=== PATIENT | female | born 1995 | race Caucasian/White ===

== ENCOUNTER 2023-06-10 13:46 | Emergency (ER) | payer MEDICAID, SELFPAY ==
[2023-06-10 13:49] VITALS: BP 105/60; PULSE 81; RESP 16; TEMP 36.7; O2SAT 100
--- NOTE | 2023-06-10 14:15 | DI.RAD_ITS ---
Exam(s) XR FEMUR LT EXAM: XR FEMUR LT CLINICAL HISTORY: blunt trauma lateral thigh. TECHNIQUE: 2D digital imaging was performed. COMPARISON: No exams were available for comparison FINDINGS: Four views. No evidence of femur fracture. No hip fracture. No radiopaque foreign body. No osseous lesions. B one density normal. IMPRESSION: No femur fracture. DATA REPOSITORY: RADIATION DOSE DELIVERED:
[2023-06-10] MEDS: Ketorolac 10 MG TAB PO (14:26)
--- NOTE | 2023-06-10 15:22 | ED.GENADUL_ITS ---
Discharge Plan Disposition Patient Disposition: Home Condition: Stable Discharge Details Clinical Impression: Contusion of left anterior thigh Primary Care Provider: Unknown,Unknown ED Provider: Fareed Parada Home Meds and New Rx's Prescriptions: New ketorolac 10 mg tablet 10 mg PO TID 5 Days Qty: 15 0RF Continued metformin 500 mg Tablet 500 mg PO DAILY spironolactone 50 mg Tablet 50 mg PO DAILY Discharge Instructions Instructions: Contusion in Adults (ED) Additional Instructions: There are no concerning findings noted on radiological imaging. If you develop any new or significant worsening of symptoms feel free to return the emergency department for reassessment otherwise follow-up with primary care provider or urgent care for reassessment. Referrals: Primary Care Provider [Outside] (As needed for reassessment) Discharge Data Discharge Date/Time-TO BE ENTERED AT DEPARTURE: 06/10/23 16:00 Medical Decision Making Patient presenting to the emergency department for chief complaint of left leg injury. Patient states approximately 1 hour ago she was kicked by horse in the left thigh. Since then she has had difficulty with weightbearing and and some tingling to her foot. She does state slight abrasion to right thigh but denies any other injury or trauma. Physical exam does show mild abrasion to right thigh but left thigh has significant swelling. Patient does have intact sensation distal to injury. I suspect that patient's tingling is secondary to the edema from the blunt trauma. We will perform radiological imaging to assess for acute fracture versus soft tissue injury. Pending results will give ketorolac Review of radiological imaging shows no acute signs of fracture. We will give patient Woody wrap to help with swelling and possible formation of hematoma. Patient placed in crutches to help with ambulation and was informed to continue to ice the area, use ketorolac as needed for pain control, and otherwise follow- up with primary care provider or return for new or worsening symptoms. After discussion of diagnosis and plan of care patient has no further needs, questions, or concerns and states clear understanding to return to the emergency department for any worsening symptoms. This documentation was generated using [email or web address] system, please disregard any oddities of phrase or misspellings. Imaging Data Radiologic Study: Imaging: X-Ray Radiologist's impression: PROCEDURE INFORMATION: Exam: XR Left Femur Exam date and time: 06/10/2023 2:47 PM Age: 28 years old Clinical indication: Other: Blunt trauma lateral thigh TECHNIQUE: Imaging protocol: Radiologic exam of the left femur. Views: 2 views. COMPARISON: No relevant prior studies available. FINDINGS: Bones/joints: No fracture or dislocation. Joint spaces are unremarkable. Soft tissues: No significant abnormality IMPRESSION: No acute findings. HPI General Mode of arrival: wheelchair . Date/Time Provider Initiated Documentation: 06/10/23 14:17 . Limitations to Documentation: no limitations . Information obtained by: patient, family and RN notes reviewed . History of Present Illness 28 year old F presents to the emergency department with the chief complaint of Left thigh injury, kicked by a horse, described as moderate and severe, Quality is described as sharp and constant, and is localized to the left and lower extremity. Patient started experiencing this hour(s) (1) and it has been constant. Immobilization improves symptom(s), Movement worsens symptoms . Patient notes no other symptoms.. Patient did receive the following treatments prior to arrival, none Related Data Home Medications Medication Instructions Recorded Confirmed ketorolac 10 mg tablet 10 mg PO TID 5 days #15 tabs 06/10/23 metformin 500 mg tablet 500 mg PO DAILY 06/10/23 06/10/23 spironolactone 50 mg tablet 50 mg PO DAILY 06/10/23 06/10/23 Previous Rx's Medication Instructions Recorded ketorolac 10 mg tablet 10 mg PO TID 5 days #15 tabs 06/10/23 Allergies Allergy/AdvReac Type Severity Reaction Status Date / Time procaine [From Novocain] Allergy Other (See Unverified 06/10/23 13:58 Comment) General Stated Complaint: Orthopedic ANNE: 3 Review of Systems Narrative: 6 systems reviewed and unremarkable except what is marked below. Cardiovascular Cardiovascular: Denies chest pain and Denies dyspnea Respiratory Respiratory: Denies dyspnea Gastrointestinal Gastrointestinal: Denies abdominal pain Musculoskeletal Musculoskeletal: Reports as per HPI, Reports limited range of motion, Reports muscle weakness and Reports tingling Integumentary/Breasts Skin/Breast: Reports wounds Neurologic Neurologic: Reports tingling PFSH All Active Problems Contusion of left anterior thigh (Acute) Social History Smoking/Tobacco Use Status: Never Smoking risk assessment performed?: Yes Alcohol Intake: current Alcohol Intake frequency: a few times a month Alcohol type: hard liquor Drug use: Never Substance use type: does not use Housing: house Do you feel safe at home: Yes Do you feel safe in your relationship?: Yes Exam Const General: cooperative, no acute distress and not ill appearing Orientation: alert, awake and oriented x3 HENMT Mouth: moist mucous membranes Resp Effort & Inspection: normal respiratory effort, able to speak in complete sentences and no respiratory distress Cardio Rate: regular rate Rhythm: regular rhythm Skin General skin exam: no rashes or lesions noted Neuro General: patient alert, patient awake, patient oriented x3 and moves all extremities Sensory Exam: no sensory deficits noted Extrem General: normal exam except as noted Right lower extremity: hip/thigh Details: abrasion; no tenderness Left lower extremity: hip/thigh Details: tenderness Location: of the mid upper leg Location: anterolaterally, swelling Location: of the mid upper leg, abnormal ROM Details: pain with active ROM and abrasion; no lacerations, no ecchymosis and no deformity, knee Details: normal to inspection; no tenderness, lower leg Details: normal to inspection; no tenderness and foot Details: normal capillary refill, toes with normal ROM and vascular exam Details: dorsalis pedis pulse present, posterior tibial pulse present and normal capillary refill Course Vital Signs Vital signs: Vital Signs Temperature 36.7 C 06/10/23 13:49 Pulse 81 06/10/23 13:49 Respiratory Rate 16 06/10/23 13:49 Blood Pressure 105/60 06/10/23 13:49 Pulse Oximetry 100 06/10/23 13:49 Temperature 36.7 C 06/10/23 13:49 Temperature Source Skin 06/10/23 13:49 Pulse 81 06/10/23 13:49 Respiratory Rate 16 06/10/23 13:49 Respiratory Effort Normal, Non-Labored 06/10/23 13:58 Blood Pressure 105/60 06/10/23 13:49 Blood Pressure Position Sitting 06/10/23 13:49 Pulse Oximetry 100 06/10/23 13:49 Oxygen Delivery Method Room Air 06/10/23 13:49 Oxygen Flow Rate 0 06/10/23 13:49 Pain Level 8 06/10/23 14:21 Lab/Test Results Lab/Test Results: POC- Test(urine) Negative PAWSS Have you Been Recently Intoxicated or Drunk Within the Last 30 days?: No Have you Ever Experienced Previous Episodes of Alcohol Withdrawal?: No Have you ever Experienced Withdrawal Seizures?: No Have you ever Experienced Delirium Tremens(DT)s?: No Have you ever undergone Alcohol Rehabilitation Treatment (i.e, inpt ot outpatient treatment programs)?: No Have you ever Experienced Blackouts?: No Have you ever Combined Alcohol with other Downers within the last 90 days?: No Have you ever Combined Alcohol with any other Substance of Abuse during the last 90 days?: No Positive Blood Alcohol level on Presentation? [PCS.BAL]: No Evidence of Increased Autonomic Activity (i.e. HR>120, tremor, sweating, agitation, nausea)?: No Result: 0
[2023-06-10 15:58] VITALS: BP 105/60; PULSE 81; RESP 16; TEMP 36.7; O2SAT 100
== END 2023-06-10 16:00 | disposition home or self-care (01) ==
PROVIDERS: Emergency Provider Nurse Practitioner Family
DX: S70.12XA Contusion of left thigh, initial encounter (principal); W55.12XA Struck by horse, initial encounter
CPT/HCPCS: 73552; 81025; 99283; 99284

== ENCOUNTER 2024-02-29 16:49 | Outpatient (REF) | payer MEDICAID, SELFPAY ==
[2024-02-29 20:45] LABS: Abs Immature Grans 0.01 10^3/uL (0.0-0.06); Absolute Basophil Count 0.03 10^3/uL (0.0-0.2); Absolute Eosinophil Count 0.04 10^3/uL (0.0-0.7); Absolute Lymphocyte Count 2.46 10^3/uL (1.2-3.4); Absolute Monocyte Count 0.41 10^3/uL (0.1-0.8); Absolute Neutrophil Count 2.73 10^3/uL (1.2-6.7); Basophils % 0.5; Eosinophils % 0.7; HGB 12.1 g/dL (11.2-15.7); Immature Grans % 0.2; Lymphocytes % 43.3; MCH 28.9 pg (27.0-33.0); MCHC 33.6 % (32.0-36.0); MCV 86 fL (80-95); MPV 10.2 fL (8.0-11.0); Monocytes % 7.2; Neutrophils % 48.1; Platelet Count 258 10^3/uL (130-400); RBC 4.18 10^6/uL (3.93-5.22); RDW 12.4 % (11.7-14.6); RDW-SD 38.9 fL; WBC 5.68 10^3/uL (4.4-10.8)
[2024-02-29 20:54] LABS: ALT 18 U/L (14-59); AST 15 U/L (15-37); Albumin 4.1 g/dL (3.4-5.0); Alkaline Phosphatase 57 U/L (46-116); Anion Gap 8.9 mmol/L (3-11); BUN 15 mg/dL (7-18); Bilirubin, Total 0.5 mg/dL (0.2-1.0); CO2 25.1 mmol/L (21.0-32.0); CREATININE 0.7 mg/dL (0.55-1.02); Calcium 8.9 mg/dL (8.5-10.1); Chloride 106 mmol/L (98-107); Estimated GFR 121.49 (mL/min/1.73m2); Glucose 84 mg/dL (74-106); Potassium 4.4 mmol/L (3.5-5.1); Sodium 140 mmol/L (136-145)
[2024-02-29 20:56] LABS: C-Reactive Protein < 0.50 mg/dL (<or=0.5)
[2024-03-01 17:30] LABS: Rheumatoid Factor <8.6 IU/mL (<12.0)
[2024-03-03 14:34] LABS: ANA Interpretation Positive (Negative)
== END 2024-02-29 16:50 | disposition home or self-care (01) ==
LOC: NCHCN 16:49
PROVIDERS: Visit Provider Family Medicine
DX: M25.59 Pain in other specified joint (principal); R11.0 Nausea
CPT/HCPCS: 80053; 85025; 86038; 86140; 86431

== ENCOUNTER → 2024-03-04 02:55 | Outpatient (CLI) | payer MEDICAID, SELFPAY ==
--- NOTE | 2024-03-04 11:33 | DI.RAD_ITS ---
Exam(s) XR LUMBAR SPINE COMPLETE EXAM: XR LUMBAR SPINE COMPLETE CLINICAL HISTORY: LOW BACK PAIN,M54.50. TECHNIQUE: 2D digital imaging was performed. COMPARISON: No exams were available for comparison FINDINGS: Five views. No evidence of fracture, listhesis, nor pars defects. 12th ribs noted to be asymmetric, left shorter than right. Transverse processes appear unremarkable. There is no scoliosis. No disc space narrow ing. No osseous lesions. IMPRESSION: No significant osseous findings. DATA REPOSITORY: RADIATION DOSE DELIVERED:
--- NOTE | 2024-03-04 11:33 | DI.RAD_ITS ---
Exam(s) XR SACROILIAC JOINTS EXAM: XR SACROILIAC JOINTS CLINICAL HISTORY: LOW BACK PAIN,M54.50. TECHNIQUE: 2D digital imaging was performed. COMPARISON: No exams were available for comparison FINDINGS: 3 views Sacroiliac joints appear unremarkable with no radiographic evidence of sacroiliitis and no ankylosis. Bone density normal lesions. No sacral fractures. IMPRESSION: Normal appearing sacroiliac joints. DATA REPOSITORY: RADIATION DOSE DELIVERED:
== END ==
PROVIDERS: PCP Family Medicine; Visit Provider Family Medicine
DX: M54.59 Other low back pain (principal)
CPT/HCPCS: 72110; 72202

== ENCOUNTER 2024-08-01 02:33 | Outpatient (CLI) | payer MEDICAID, SELFPAY ==
--- NOTE | 2024-08-01 | DI.US_ITS ---
Exam(s) US PELVIS TRANSVAGINAL EXAM: US PELVIS TRANSVAGINAL CLINICAL HISTORY: Dyspareunia, N94.10. TECHNIQUE: Transabdominal and transvaginal pelvic ultrasound was performed using standard protocol. COMPARISON: No exams were available for comparison FINDINGS: UTERUS: Position: Anteverted. Size: 7.7 long by 3.3 AP by 4.5 transverse cm Endometrium: 0.4 cm. Normal for patient's menstrual status. Myometrium: Unremarkable. Cervix: Nabothian cysts are seen. OVARIES: Right: 4.2 x 2.4 x 3.1 cm Cyst or mass: No suspicious cystic or solid masses. Left: 5.8 x 4.5 x 5.0 cm Cyst or mass: No suspicious cystic or solid masses. There is a 3.8 x 3.6 x 5.0 cm simple cyst on the left ovary. This is likely physiologic. DOPPLER: Color: Symmetric and uniform flow to both ovaries. CUL-DE-SAC: Free fluid: None. Other: None. IMPRESSION: 1. Normal-appearing uterus with endometrial stripe within normal limits. 2. 3.8 x 3.6 x 5.0 cm simple left ovarian cyst. This is likely physiologic. A follow-up examination in 6 8 weeks is recommended for re-evaluation of the left ovarian cyst. 3. Unremarkable right ovary. DATA REPOSITORY:
== END 2024-08-01 02:53 ==
LOC: DI 02:33
PROVIDERS: PCP Family Medicine; Visit Provider Family Medicine
DX: N94.10 Unspecified dyspareunia (principal)
CPT/HCPCS: 76830; 76856

== ENCOUNTER 2024-08-01 12:45 | Outpatient (REF) | payer MEDICAID, SELFPAY ==
--- NOTE | 2024-08-01 13:45 | PAPFT_PTH ---
PATIENT: Ulises Skelton LOC: [facility] U#:[id number] AGE/SX: 29/F ROOM: RE08/01/[address]: Kalyani Douglas : 1995 BED: DIS: 08/01/2024 SPEC #: [id number] RECD: 08/02/24 13:28 STATUS: DAE RETavon #: [id number] LUIS EDUARDO: 08/01/24 13:[address]: Kalyani Douglas DEPT: [facility] Cytology RECD BY: La Wyatt Tissues: 1 - CX/ENDOCX FOR PAP SMEARS Procedures: PAP THIN PREP/UVM Screening Comments: [id number]
== END 2024-08-01 12:46 | disposition home or self-care (01) ==
LOC: NCHCN 12:45
PROVIDERS: PCP Family Medicine; Visit Provider Family Medicine
DX: Z12.4 Encounter for screening for malignant neoplasm of cervix (principal)
CPT/HCPCS: 88142

== ENCOUNTER 2024-08-21 01:47 | Outpatient (CLI) | payer MEDICAID, SELFPAY ==
[2024-08-21] MEDS: Gadoterate meglumine 20 ML VIAL 11 ML IVP (09:04)
--- NOTE | 2024-08-21 09:45 | DI.MRI_ITS ---
Exam(s) MR PELVIS WO/W EXAM: MR PELVIS WO/W CLINICAL HISTORY: Pelvic and perineal pain, R10.2; dyspareunia; tenderness R adnexa; TECHNIQUE: Multiplanar multisequence MRI of the Abdomen was performed. CONTRAST MATERIAL: IV Contrast: 11 mL of Dotarem contrast administered. COMPARISON: US US PELVIS TRANSVAGINAL from 08/01/2024 FINDINGS: Ovaries: The right ovary measures 2.5 x 3.2 x 2.9 cm. There are small follicular cysts present. The largest measures 9.5 mm. No suspicious cystic or solid ovarian lesions are present. The left ovary measures 4.5 x 5.6 x 3.9 cm. There is a simple 3.9 x 5.0 x 3.4 cm cyst. This corresponds to the cy st seen on the pelvic ultrasound and is show no significant change in size. The cyst has a thin wall . No solid component is seen. Following contrast administration no abnormal enhancement is seen. T he cyst is homogeneously hyperintense on the T2 weighted images and homogeneously hypointense on the T1 weighted images. No suspicious left ovarian lesions are seen. Uterus: The uterus is grossly unremarkable. There is no evidence of a myometrial mass. The endometr ial stripe appears grossly unremarkable. It measures 8 mm in thickness which is within normal limits . The uterus measures 8.6 cm long by 5.0 cm transverse by 4.8 cm AP. Cervical nabothian cysts are p resent. Bowel: The stool seen in the colon particularly in the cecum. Lymph nodes: No evidence of pelvic adenopathy. Peritoneal cavity: No significant ascites is present. Urinary bladder: Unremarkable. Soft tissue : Unremarkable. Vasculature: Unremarkable. Bone: Unremarkable. Enhancement: Unremarkable. IMPRESSION: 1. 3.9 x 5.0 x 3.4 cm simple left ovarian cyst. A follow-up pelvic ultrasound in 6 8 weeks is recomm ended. 2. Unremarkable right ovary and uterus. 3. No evidence of a pelvic mass or enhancing lesion. DATA REPOSITORY:
== END 2024-08-21 02:07 ==
LOC: DI 01:47
PROVIDERS: PCP Family Medicine; Visit Provider Family Medicine
DX: N83.292 Other ovarian cyst, left side (principal)
CPT/HCPCS: 72197

== ENCOUNTER 2024-12-08 15:09 | Emergency (ER) | payer MEDICAID, SELFPAY ==
[2024-12-08 15:12] VITALS: BP 115/76; PULSE 89; RESP 16; TEMP 36.8; O2SAT 98
--- OUTSIDE RECORDS SUMMARY | 2024-12-08 15:28 | XMS_ITS | Clinical Summary ---
Author Organization [facility] Address [facility] [place] [address] Care Team Providers Care Grinder Set Up Operator Thread Tool Name Role Phone Kalyani Douglas MD Primary Care Provider [phone] Social History Tobacco Use Types Packs/Day Years Used Date Smoking Tobacco: Never Assessed Sex and Gender Information Value Date Recorded Sex Assigned at Not on file Gender Identity Not on file Sexual Orientation Not on file Plan of Treatment Health Maintenance Due Date Last Done Comments HIV screen 2014 Hepatitis C Screening 2014 Hepatitis B vaccine (0-59 yrs) (1) 2015 Tetanus/Diphtheria/Pertussis Vaccines (1 - Tdap) 03/25 PAP Smear 2017 Covid-19 Vaccine ( - 2023- season) 2024 Influenza (Flu) vaccine (1 o f 1 - Influenza standard series) 07/28/2024 Care Teams Grinder Set Up Operator Thread Tool Relationship Specialty Start Date End Date Kalyani Douglas MD [address] [place] [address] PCP - General Family Medicine 03/25/24
--- OUTSIDE RECORDS SUMMARY | 2024-12-08 15:28 | XMS_ITS | Encounter Summary ---
Author Organization [facility] [place] [address] Care Team Providers Care Renal Case Manager Name Role Phone Kalyani Douglas MD Primary Care Provider Reason for Referral * Consultation (Routine) - Closed Specialty Diagnoses / Procedures Referred By Contac t Referred To Contact Dermatology Diagnoses Dysplastic nevus of skin Kalyani Douglas MD [address] [place] [address] [facility] Dermatology [address] [place] [address] Referral ID Status Reason Start Date Expiration Date V isits Requested Visits Authorized [id number] Closed Consult, Test & Treat PCP Updated and/or Approved 07/24/2024 01/24/2025 6 6 Encounter Details Date Type Department Care Team (Latest Contact Info) Description 08/12/2024 Transcribe Orders eDH Incoming Referrals [phone] Kalyani Douglas MD [address] [place] [address] Dysplastic nevus of skin Social History Tobacco Use Types Packs/Day Years Used Date Smoking Tobacco: Never Assessed Sex and Gender Information Value Date Recorded Sex Assigned at Not on file Gender Identity Not on file Sexual Orientation Not on file documented as of this encounter Plan of Treatment Scheduled Referrals Name Type Priority Associated Diagnoses Order Schedule Referral to Dermatology Outpatient Referral Routine Dysplastic nevus of skin Ordered: 08/12/2024 documented as of this encounter Visit Diagnoses Diagnosis Dysplastic nevus of skin Benign neoplasm of skin, site unspecified documented in this encounter Care Teams Renal Case Manager Relationship Specialty Start Date End Date Kalyani Douglas MD [address] [place] [address] PCP - General Family Medicine 03/25/24 documented as of this encounter
--- OUTSIDE RECORDS SUMMARY | 2024-12-08 15:28 | XMS_ITS | Clinical Summary ---
Author Organization [facility] Address [address] [place] [address] Care Team Providers Care Gear Setter Name Role Phone Kalyani Douglas MD Primary Care Provider FortinoLiz gee DO Unavailable [phone] Allergies Active Allergy Reactions Criticality Noted Date Comments Procaine Nausea And Vomiting Medium 11/02/2017 Other - See Comments 12/02/2024 seasonal Medications ibuprofen (MOTRIN) 400 mg tablet Take 1 Tab by mouth every 4 hours as needed for Pain. Active fexofenadine (MARTHA) 60 mg tablet Take 1 Tablet by mouth as needed. Active LORazepam (ATIVAN) 0.5 mg tablet Take 1 Tab by mouth at bedtime as needed for Anxiety. Daily Max: 0.5 mg 15 Tab 1 Active ondansetron (ZOFRAN-ODT) 4 mg disintegrating tabletIndications :Nausea TAKE 1 TABLET BY MOUTH EVERY 8 HOURS NEEDED FOR NAUSEA 12 Tablet 3 Active lisdexamfetamine (VYVANSE) 30 mg capsuleIndication s:Attention deficit hyperactivity disorder (ADHD), predominantly inattentive type Take 1 capsule by mouth every morning. Daily Max: 30 mg 28 capsule Active Additional Information Patient taking differently: 40 mgoral EVERY MORNING, Reported on 12/04/2024 spironolactone (ALDACTONE) 50 mg tablet Take 1 Tablet by mouth every morning. Active metFORMIN (GLUCOPHAGE) 500 mg tablet Take 1 Tablet by mouth every morning. 023 Active VYVANSE 40 mg capsule Take 1 Capsule by mouth daily. Active ketOROLAC (TORADOL) 10 mg tablet Take 1 Tablet by mouth every 6 hours as needed for Pain. 20 Tablet 024 Active hydroxychloroquin e (PLAQUENIL) 200 mg tabletIndications :Inflammatory arthritis Start hydroxychlorquine 200mg daily for 2-weeks. If tolerated may increase to 400mg daily. 90 Tablet 1 025 Active Active Problems Problem Noted Date Diagnosed Date Nausea 12/03/2020 Overview (12/03/2020): With menses Attention deficit hyperactiv ity disorder (ADHD), predominantly inattentive type 11/05/2020 Moderate episode of recurren t major depressive disorder ([facility]) 11/05/2020 Anxiety Resolved Problems Problem Noted Date Diagnosed Date Resolved Date Sterilization consult 06/10/20202019 Assessment & Plan (06/10/2020 11:49 EDT): 25yo P1 who presents for consultation regarding permanent sterilization - Reviewed [facility] and Medicaid consent forms, in particular discussed increased risks of regret given her age. We reviewed alternative forms of control, male vasectomy and the irreversible and permanent nature of the procedure. She wished to proceed and signed both the tubal forms and the surgical consent forms. - Will send to diesel truck technician to arrange, tentative date 07/15 for laparoscopic bilateral salpingectomy. - All questions answered 01/31/2020 11/05/2020 Rubella non-immune status, antepartum 11/18/2019 11/05/2020 Overview (11/18/2019): Give pp Supervision of other normal 07/03/2019 11/05/2020 Overview (01/20/2020): CNM ACC Partner's name: [ French ] Hx early SAB x 2 Hx low back pain Rubella non immune Dating by [ 5w TVUS ] Pre- weight [ 152/68 Kg ] Aneuploidy screening: [NIPT - neg, female ] AFP [ declines ] normal 12w ultrasound CF [ partner neg ] SMA [ partner neg ] Blood type [O pos ] Pap [08/09/2017 ASCUS/HPV neg ] Additional labs [ ] OGTT/CBC: [ 109 H&H 10.8 & 32.2 ] 12/16/2019 - POCT Hb = 11.6 If Rh neg [ ] 28 wk T&S [ ] Rhogam given [ ] GBS: [ neg ] (Allergies?) Hx HSV [ no hx ] Flu vaccine: [ 10/21/2019 ] Tdap (after 28 wks): [ 12/02/2019 ] Anatomy scan: [ 09/20/19 20 wks WNL female. Posterior placenta ] Growth US if indicated: [ 12/16/2019 32w3d 1899 gr 24% ] AP testing if indicated [ ] VPMS Query [ ] Informed consent for opioids signed [ ] Contraception plans/Tubal [ condoms-->vasectomy ] wishes [ ] plans cord blood banking; zofran with nausea / hoping to not vomit; support from her mom & partner] Circ if boy [ n/a ] Pedi [[facility] ] Reminders [ ] Handouts attached [ ] Last updated Mariluz Hancock CNM 07/03/2019 16:42 of unknown anatomic location 05/27/2019 12/16/2019 Overview (06/12/2019): Clinical Group: [facility]/ (eg. COGS, ED patient, [facility], SAIMA, KIRILL) HPI: [place] Mikayla Duffy is an 24 y.o. , during telephone KENNEDY 05/27 pt stated RLQ pain for past 4 days, U/S 05/27 shows no IUP (5w2d), 2.16x2.16x1.84 cm structure contiguous with right ovary, which may represent either an old, collapsing corpus luteum cyst vs. possible ovarian ectopic. LMP: 04/20/19 (sure) Rh status: pos Rhogam? N/A Desired ? Y/N Ectopic risk factors: RLQ pain x4 days HCGs 05/27/2019: Quant Beta HCG, Preg 51 mIU/ml* (Ref range: <5 mIU/ml) 05/29 @ [facility]: 110 05/31/19 @ [facility] mIU/mL Plan: Per Dr. Cooper repeat beta 05/29 (@[facility]). Results, plan, precautions reviewed with pt. MYA CARTER 05/30/2019 Discussed with patient, recommended repeat blood draw on Monday, 05/31, will decide repeat US based on result, symptoms. Order placed. Patient prefers to go to [facility]. ADL 05/31/19: appropriately rising HCG, currently asymptomatic. Plan per Dr. Banerjee: strict ectopic precautions u/s in 2 weeks (~06/14). Results, plan & precautions discussed with Ulises. MYA Mosher 06/03/19: TVUS scheduled for 06/12 @ 1120. [facility] for Fed[place] with appt date/time. MYA Mosher 06/12/19. Per Dr. Banerjee, may discontinue beta HCG surveillance (ie take off beta book). [facility] Abnormal Pap smear of cervix 11/05/2020 Overview (09/03/2019): ASCUS neg HPV 07/2017 Repeat pap 08/28/19 NILM no t-zone HPV neg Encounters Date Type Department Care Team Description 12/04/2024 8:40 EST Office Visit [facility] Rheumatology & Immunology - [address] [id number] Nikolay Elizabeth MD MPH Inflammatory arthritis (Primary Dx); Raynaud's disease without gangrene; SOCORRO positive 12/03/2024 Telephone [facility] OBGYN Services - [address] [phone] Celeste Cooper MD Abdominal Pain 12/02/2024 10:30 EST - 12/02/2024 16:35 EST Hospital Encounter [facility] Pre-Surgical Testing [address] [place] [phone] 11/22/2024 10:30 EST Office Visit [facility] OBGYN Services - [address] [phone] Zina Puente MD Cyst of left ovary (Primary Dx) 11/11/2024 19:32 EST - 11/11/2024 22:16 EST Emergency [facility] Emergency Department - [address] [phone] Livier Banerjee MD Left lower quadrant pain (Primary Dx); Left ovarian cyst Discharge Disposition: Home or Self Care 11/06/2024 16:00 EST Phlebotomy Only [facility] 2 Phlebotomy [address] [place] [address] 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, 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 Phlebotomy Positive SOCORRO (antinuclear antibody); Raynaud's disease without gangrene; Arthralgia of both hands; Chronic pain of both knees 11/06/2024 15:00 EST Office Visit [facility] Rheumatology & Immunology - [address] [address] Nikolay Elizabeth MD [facility] Positive SOCORRO (antinuclear antibody) (Primary Dx); Raynaud's disease without gangrene; Arthralgia of both hands; Chronic pain of both knees 10/09/2024 15:45 EST Initial consult [facility] [address] [address] Farrah Shoemaker MD Cyst of left ovary (Primary Dx) 10/09/2024 14:34 EST - 10/09/2024 23:59 EST Hospital Encounter [facility] [address] [phone] Pelvic and perineal pain Discharge Disposition: Home or Self Care from Last 3 Months Immunizations Name Administration Dates Next Due Covid-19 mRNA Vaccine (MODER NA COVID-19) PF 0.5 ml IM (12 yrs+) 04/09/2021 DTaP Vaccine (INFANRIX) <7YO IM 04/07/20 00,06/30/1997,1996,07/30,1996 Hepatitis B Vaccine Ped/Adol escent 3-dose IM 01/03/1997,1996,1996 Hib PRP-T Conjugate Vaccine 4 Dose IM ,1996,1996,05/20 Human Papillomavirus (HPV9) 9-Valent Vaccine (GARDASIL-9) IM 09/02/2013,09/02/2010 Influenza Vaccine =>3yo Split IM 09/02/2013 Influenza Vaccine Quad PF 0. 5 ml IM (6 mos+) 10/21/2019 MMR Vaccine SQ 02/02/2020,04/07/2000,06/30/1997 Poliovirus Vaccine IPV IM OR SQ 04/07/20 00,1996,1996,05/20 Td 10/26/2011,10/26/2010 Tdap Vaccine =>7YO IM 12/02/2019 Surgical History Surgery Date Site/Laterality Comments DILATION AND CURETTAGE OF UTERUS WISDOM TOOTH EXTRACTION Medical History Medical History Date Comments Anxiety Noted 12/02/2024 : tx w/ PRN meds, controlled Vaginal delivery 01/2020 no anesthesia Rubella non-immune status, antepartum 11/18/2019 Give pp Depression Noted 12/02/2024 : controlled w/ meds ADHD (attention deficit hype ractivity disorder) Noted 12/02/2024: tx w/ meds Dysmenorrhea Noted 12/02/2024 : Sleep disorder Thyromegaly Noted 12/02/2024 : Low vitamin D level Noted 2024: TMJ syndrome Noted 12/02/2024 : verified Vertigo Noted 12/02/2024 : every now and then maybe a month ago, [place] PCOS (polycystic ovarian syndrome) Noted 12/02/2024: tx w/ Metformin Cyst of left ovary Noted 025: History of general anesthesia No wilmer 12/02/2024: Nausea Nausea & vomiting Noted 12/02/19 25: nausea Activity, other involving cardiorespiratory exercise Noted 12/02/2024: active in general, has kids, walking, can climb 1-2 FOS w/ no SOB Exercise involving housework Not ed 12/02/2024: GERD (gastroesophageal reflux disease) Noted 12/02/2024: no meds, can lie flat Pain Noted 12/02/2024 : ovary RA (rheumatoid arthritis) ([facility]) Noted 12/02/2024: possible new diagnosis Family History Medical History Relation Comments Anxiety Disorder Brother Depression Brother Colon Cancer Maternal Grandfather Hypertension Maternal Grandfather Arthritis-Osteo Maternal Grandmother Breast Cancer Maternal Grandmother Depression Maternal Grandmother Heart Disease Maternal Grandmother Hypertension Maternal Grandmother Osteoporosis Maternal Grandmother SLE Maternal Grandmother Anxiety Disorder Mother Depression Mother Mental Illness Mother Diabetes Paternal Grandfather Diabetes Paternal Grandmother Relation Status Comments Brother Daughter Alive Father Other Maternal Grandfather Maternal Grandmother Mother Alive Paternal Grandfather Paternal Grandmother Social History Tobacco Use Types Packs/Day Years Used Date Smoking Tobacco: Never Passive Smoke Exposure: Never Smokeless Tobacco: Never Tobacco Cessation:Counseling Given: Not Answered Alcohol Use Standard Drinks/Week Comments Not Currently 0 (1 standard drink = 0.6 oz pur e alcohol) AUDIT-C Answer Date Recorded Q1: How often do you have a drink containing alc ohol? Never 08/05/2020 Average Number of Drinks Not on file 020 Frequency of Binge Drinking Not on file 07/2020 Overall Financial Resource Strain (CARDIA) Answe r Date Recorded How hard is it for you to pa y for the very basics like food, housing, medical care, and heating? Not hard at all 10/18/2022 PHQ-2 Answer Date Recorded PHQ-2 SUBTOTAL 0 10/18/2022 Hunger Vital Sign Answer Date Recorded Within the past 12 months, y ou worried that your food would run out before you got the money to buy more. Never true 10/18/20 22 Within the past 12 months, t he food you bought just didn't last and you didn't have money to get more. Never true 10/18/2022 PRAPARE - Transportation Answer Date Re corded In the past 12 months, has l ack of transportation kept you from medical appointments or from getting medications? No 09/28 In the past 12 months, has l ack of transportation kept you from meetings, work, or from getting things needed for daily living? No 10/18/2022 Housing Stability Vital Sign Answer Jonah e Recorded In the last 12 months, was t here a time when you were not able to pay the mortgage or rent on time? No 10/18/2022 In the last 12 months, how many places have you lived? 1 10/18/2022 In the last 12 months, was t here a time when you did not have a steady place to sleep or slept in a halfway (including now)? No 10/18/2022 Interpersonal Safety Answer Date Record ed How often does anyone, inclu ding family, hit, punch or physically hurt you? Never 10/18/2022 How often does anyone, inclu ding family, insult, scream, curse or threaten to hurt you? Never 10/18/2022 Comments No Sex and Gender Information Value Date Recorded Sex Assigned at Female 11/06/2024 15:56 EST Legal Sex Female 15:52 EDT Gender Identity Female 11/12/2019 14:09 EST Sexual Orientation Not on file Obstetrics History Para Term AB IAB SAB Ectopic Multiple Livin g Live Births 3 1 1 0 2 2 0 0 0 1 1 Date Outcome GA Total Labor Labor//3rd Weight Sex Type Anes PTL Zulay A1 A5 Name Clin 2017 IAB 4w0 d 2018 IAB 10w 0d 020 Term 39w 0d 0h 33m 0h 27m/0h 06m 3350 g (7 lb 6.2 oz) F Livin g 8 10 [facility] A [facility], Marva E, [facility] Delivery Location:[facility] ([place] [address] [facility]) Last Filed Vital Signs Vital Sign Reading Time Taken Comments Blood Pressure 99/64 12/04/2024 0837 EST Pulse 77 12/04/2024 0837 EST Temperature 35.9 ??C (96.6 ??F) 12/04/2024 0837 EST Respiratory Rate 17 11/11/2024 2157 EST Oxygen Saturation 100% 11/11/2024 2157 EST Inhaled Oxygen Concentration - - Weight 54.4 kg (120 lb) 12/02/2024 1616 EST Height 157.5 cm (5' 2) 12/02/2024 1616 EST Body Mass Index 21.95 12/02/2024 1616 EST Plan of Treatment Upcoming Encounters Date Type Department Care Team (Late st Contact Info) Description 12/11/2024 9:25 EST Hospital Encounter [facility] OR [address] [place], [place] [phone] Celeste Cooper MD [address] [facility], Level [address] [place] [phone] 12/11/2024 9:25 EST - 12/11/2024 11:40 EST Surgery [facility] OR [address] [place] [phone] Celeste Cooper MD [address] [place] [address] 4 [place] [phone] Laparoscopic left ovarian cystectomy [79305 (CPT??)] 12/31/2024 16:15 EST Post-op Visit [facility] [address] [phone] Jessika Upton MD [address] [place] [phone] 02/06/2025 13:10 EDT Appointment [facility] [address] [phone] 03/05/2025 8:40 EDT Office Visit [facility] Rheumatology & Immunology [address] [phone] Nikolay Elizabeth MD MPH [address] [place] [address], [facility] [address] [place] [phone] Scheduled Procedures Name Priority Associated Diagnoses Date/Ti me LAPAROSCOPY, WITH EXCISION O R FULGURATION OF LESIONS OF OVARY, PELVIC VISCERA, OR PERITONEAL SURFACE Cyst of left ovary 12/11/2024 9:25 EST Health Maintenance Due Date Last Done Comments Hepatitis C Screen 1996 Advance Directive 2014 Preventive Care Visit 2014 Depression Screening 11/05/2021 11/05/2020 Social Determinants Of Healt h (SDOH) 10/18/2023 10/18/2022, 10/18/2022 COVID-19 Vaccine (2023-2 5 season) 2024 04/09/2021 Influenza Immunization (Adul t) (#1) 2024 10/21/2019, 09/02/2013 Cervical Cancer Screening 08/01/2027 Pap Smear (Cervical Cancer Screening) 08/01/2027 08/01/2024, 08/28/2019, 08/09/2017, Additional history exists Tetanus (Adult) Immunization 12/02/202904/2020, 10/26/2011, 10/26/2010 Hepatitis B Vaccine Completed 01/03/1997, 1996, 1996 HPV Vaccines Completed 09/02/2013, 09/02/2010 HPV/Cotest (Cervical Cancer Screening) Discontinued 08/09/2017 Chlamydia Screening Discontinued 10/09/2018, 10/01/2018, 10/25/2017 HIV Screening Completed 07/31/2019, 10/09/2018 Pertussis (Adult) Immunization Completed 12/02/2019 RETIRED Cervical Cancer Screening Discontinued 08/01/2024, 08/28/2019, 08/09/2017, Additional history exists Procedures Procedure Name Priority Date/Time Associated Diagnosis Comments US PELVIS TRANSABDOMINAL AND TRANSVAGINAL COMPLETE WITH LIMITED DUPLEX STAT 11/11/2024 18:54 EST POCT TEST, CLINITEK STAT 11/11/2024 18:26 EST POCT CSN BARCODE URINE PREG TEST STAT 11/11/2024 18:25 EST POCT TEST, CLINITEK ORDER STAT 11/11/2024 18:25 EST UA SEDIMENT + REFLEX TO CULTURE STAT 11/11/2024 18:24 EST URINE CHEMICAL (DIP) & SEDIMENT (MICRO) WITHOUT REFLEX TO CULTURE Routine 11/06/2024 16:17 EST Positive SOCORRO (antinuclear antibody) Raynaud's disease without gangrene Arthralgia of both hands Chronic pain of both knees SS-B (LA) ANTIBODY, IGG Routine 11/06/2024 16:17 EST Positive SOCORRO (antinuclear antibody) Raynaud's disease without gangrene Arthralgia of both hands Chronic pain of both knees RO60 ANTIBODY, IGG Routine 11/06/2024 16 :17 EST Positive SOCORRO (antinuclear antibody) Raynaud's disease without gangrene Arthralgia of both hands Chronic pain of both knees RO52 ANTIBODY, IGG Routine 11/06/2024 16 :17 EST Positive SOCORRO (antinuclear antibody) Raynaud's disease without gangrene Arthralgia of both hands Chronic pain of both knees SM (HANCOCK) ANTIBODY, IGG Routine 11/06/2024 16:17 EST Positive SOCORRO (antinuclear antibody) Raynaud's disease without gangrene Arthralgia of both hands Chronic pain of both knees SCL 70 ANTIBODY, IGG, SERUM Routine 11/06/2024 16:17 EST Positive SOCORRO (antinuclear antibody) Raynaud's disease without gangrene Arthralgia of both hands Chronic pain of both knees 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, IGG Routine 11/06/2024 16: 17 EST Positive SOCORRO (antinuclear antibody) Raynaud's disease without gangrene Arthralgia of both hands Chronic pain of both knees CCP ANTIBODIES Routine 11/06/2024 16:17 EST Positive SOCORRO (antinuclear antibody) Raynaud's disease without gangrene Arthralgia of both hands Chronic pain of both knees DOUBLE STRANDED DNA ANTIBODY, IGG Routine 11/06/2024 16:17 EST Positive SOCORRO (antinuclear antibody) Raynaud's disease without gangrene Arthralgia of both hands Chronic pain of both knees C4 COMPLEMENT Routine 11/06/2024 16:17 EST Positive SOCORRO (antinuclear antibody) Raynaud's disease without gangrene Arthralgia of both hands Chronic pain of both knees C3 COMPLEMENT Routine 11/06/2024 16:17 EST Positive SOCORRO (antinuclear antibody) Raynaud's disease without gangrene Arthralgia of both hands Chronic pain of both knees COMPREHENSIVE METABOLIC PANEL (CMP) Routine 11/06/2024 16:17 EST Positive SOCORRO (antinuclear antibody) Raynaud's disease without gangrene Arthralgia of both hands Chronic pain of both knees COMPLETE BLOOD COUNT AND DIFFERENTIAL Routine 11/06/2024 16:17 EST Positive SOCORRO (antinuclear antibody) Raynaud's disease without gangrene Arthralgia of both hands Chronic pain of both knees US PELVIS TRANSVAGINAL COMPLETE Routine 10/09/2024 14:48 EST Pelvic and perineal pain PAP TEST Today 08/01/2024 13:45 EDT Encounter for gynecological examination (general) (routine) without abnormal findings Encounter for screening for malignant neoplasm of cervix Encounter for general adult medical examination without abnormal findings HIV 1/2 ANTIGEN AND ANTIBODY, 4TH GENERATION Routine 07/31/2019 12:41 EDT Supervision of normal intrauterine in multigravida in first trimester GC/CHLAMYDIA PCR - [facility] Routine 10/09/2018 10:19 EST HPV DNA DETECTION WITH GENOTYPING, PCR Routine 08/09/2017 14:01 EDT from Last 3 Months or Most Recently Relevant to Health Maintenance Results * US PELVIS TRANSABDOMINAL AND TRANSVAGINAL COMPLETE WITH LIMITED DUPLEX (11/11/2024 18:54 EST) Anatomical Region Laterality Modality Pelvis, Body Ultrasound 11/12/2024 8:51 EST Impressions 11/12/2024 8:51 EST Findings/Impression: Right ovary: Arterial and venous Doppler waveforms and color flow are present in the right ovary. Left ovary: Arterial and venous Doppler waveforms and color flow are present in the left ovary. GRAYSCALE: Technique: Grayscale ultrasound of the pelvis was performed, first transabdominally, and then transvaginally. Indication for Grayscale: known left ovarian csyst suspect cystadenoma plan for OR in Nov here with worsening left adenexal pain sent by [facility]ER [facility]EDER Findings: LMP: Unknown Uterus: The anteverted uterus measures 8.6 x 3.9 x 5.1 cm in size. No focal lesion. Endometrium: The hyperechoic endometrium measures 0.3 cm in double endometrial stripe thickness, which is normal. No abnormal fluid collection. Right ovary: The right ovary measures 4.6 x 2.2 x 3.3 cm in size, for an estimated right ovarian volume of 17.2 ??mL. Small 2 cm evolving corpus luteum. Left ovary: The left ovary measures 5.1 x 3.5 x 4.5 cm in size, for an estimated left ovarian volume of 42.5 mL. There is a 4.7 x 3.4 x 3.9 cm unilocular cyst in the left adnexa, previously measured at 4.8 x 3.3 x 4.1 cm. Currently essentially anechoic, no convincing complexity on this exam, small echogenic foci peripherally not definitively related to cyst wall. . Cervix: Normal Free fluid: None. Other Findings: None. IMPRESSION: 1. ??No sonographic evidence of ovarian torsion. 2. ??No significant change in the unilocular and potentially physiologic left adnexal cyst. Follow-up ultrasound as per prior report, if persists, an eventual pelvic MRI may be appropriate to better assess for intrinsic cyst complexity. 3. ??Right corpus luteum. I have personally reviewed the images and the above interpretation and agree with the findings. [id number] Narrative 11/12/2024 8:51 EST US PELVIS TRANSABDOMINAL AND TRANSVAGINAL COMPLETE WITH LIMITED DUPLEX ??11/11/2024 6:36 PM SIGNS AND SYMPTOMS/COMMENTS: known left ovarian csyst suspect cystadenoma plan for OR in Nov here with worsening left adenexal pain sent by FILLER FEEDER COMPARISON: Pelvic outside department ultrasound 10/09/2024. 10/05/2021.. DUPLEX: Indication for Duplex: Concern for ovarian torsion and/or mass Technique: Color and spectral Doppler ultrasound of the pelvis was performed. Resulting Agency Comment [id number] Procedure Note Franki Paz MD - 11/12/2024 US PELVIS TRANSABDOMINAL AND TRANSVAGINAL COMPLETE WITH LIMITED [id number]/11/2024 6:36 PM SIGNS AND SYMPTOMS/COMMENTS: known left ovarian csyst suspect cystadenomaplan for OR in Nov here with worsening left adenexal pain sent by [facility]ILLER FEEDER COMPARISON: Pelvic outside department ultrasound 10/09/2024. 10/05/2021.. DUPLEX: Indication for Duplex: Concern for ovarian torsion and/or mass Technique: Color and spectral Doppler ultrasound of the pelvis wasperformed. IMPRESSION Findings/Impression: Right ovary: Arterial and venous Doppler waveforms and color flow arepresent in the right ovary. Left ovary: Arterial and venous Doppler waveforms and color flow arepresent in the left ovary. GRAYSCALE: Technique: Grayscale ultrasound of the pelvis was performed, firsttransabdominally, and then transvaginally. Indication for Grayscale: known left ovarian csyst suspect cystadenomaplan for OR in Gabe here with worsening left adenexal pain sent by [facility]ILLER FEEDER Findings: LMP: Unknown Uterus: The anteverted uterus measures 8.6 x 3.9 x 5.1 cm in size. Nofocal lesion. Endometrium: The hyperechoic endometrium measures 0.3 cm in doubleendometrial stripe thickness, which is normal. No abnormal fluidcollection. Right ovary: The right ovary measures 4.6 x 2.2 x 3.3 cm in size, for anestimated right ovarian volume of 17.2 mL. Small 2 cm evolving corpusluteum. Left ovary: The left ovary measures 5.1 x 3.5 x 4.5 cm in size, for anestimated left ovarian volume of 42.5 mL. There is a 4.7 x 3.4 x 3.9 cmunilocular cyst in the left adnexa, previously measured at 4.8 x 3.3 x 4.1cm. Currently essentially anechoic, no convincing complexity on this exam,small echogenic foci peripherally not definitively related to cyst wall. . Cervix: Normal Free fluid: None. Other Findings: None. IMPRESSION: 1. No sonographic evidence of ovarian torsion. 2. No significant change in the unilocular and potentially physiologicleft adnexal cyst. Follow-up ultrasound as per prior report, if persists,an eventual pelvic MRI may be appropriate to better assess for intrinsiccyst complexity. 3. Right corpus luteum. I have personally reviewed the images and the above interpretation andagree with the findings. [id number] us Lee Humphries MD [facility] IMG US OB ORDERABLES Юлия sánchez Result * POCT TEST, CLINITEK (11/11/2024 18:26 EST) UPT Result Negative Negative 11/11/2024 18:32 EST [facility] HN LAB COMMENT (CLINITEK, UPT) Test performed at Emergency Department 11/11/2024 18:32 EST [facility] Comment:False negative resul ts may occur in women who are beyond 5-8 weeks gestation. Diagnosis of should be based on a correlation of test results with typical clinical signs and symptoms. Urine URINE SPECIMEN OBTAINED BY CLEAN CATCH PROCEDURE / Unknown 11/11/2024 18:26 EST 11/11/2024 18:32 EST us Lee Humphries MD [facility] POINT OF CARE TEST ORDERA BLES Final Result Performing Organization Address [facility] Co de Phone Number [facility] [address] [place] [address] * POCT CSN BARCODE URINE PREG TEST (11/11/2024 18:25 EST) Urine URINE SPECIMEN OBTAINED BY CLEAN CATCH PROCEDURE / Unknown Urine Collect / Unknown 11/11/2024 18:25 EST 11/11/2024 18:25 EST us Lee Humphries MD [facility] LAB INFO SERVICE AND SUPP ORT & PHONE RESULT Final Result Performing Organization Address [facility] de Phone Number [facility] [address] [place] [address] * UA SEDIMENT + REFLEX TO CULTURE (11/11/2024 18:24 EST) Urine RBC Count, Auto 0 - 2 0 - 2 Cells/HPF 11/11/2024 18:45 EST [facility] Urine WBC Count, Auto 0 - 3 0 - 3 Cells/HPF 11/11/2024 18:45 EST [facility] Urine Squamous Count, Auto None Seen None Seen Cells/HPF 11/11/2024 18:45 EST [facility] Urine Hyaline Cast Count, Auto <=10 <=10 Casts/LPF 11/11/2024 18:45 EST [facility] Urine Bacteria Count, Auto None Seen None Seen Bacteria/H PF 11/11/2024 18:45 EST [facility] Urine URINE SPECIMEN OBTAINED BY CLEAN CATCH PROCEDURE / Unknown Urine Collect / Unknown 11/11/2024 18:24 EST 11/11/2024 18:32 EST Narrative [facility] - 11/11/2024 18:45 EST NOTE: Reflex to Urine Culture test is not indicated based on Urine Sediment Analysis results. Urine Sediment Analysis results are unreliable on urines that are unrefrigerated for >2 hrs or refrigerated >8 hrs. Lee Humphries MD [facility] URINALYSIS ORDERABLES Fin al Result Performing Organization Address [facility] Co de Phone Number [facility] [address] [place] [address] * RO60 ANTIBODY, IGG (11/06/2024 16:17 EST) Ro60 Antibody, IgG <7.0 <20.0 CU 2023 10:02 EST [facility] Comment:Results were obtaine d with the [employer]oon QUANTA Flash Ro60 chemiluminescent immunoassay. Values obtained with different manufacturers' assay methods must not be used interchangeably. Blood VENOUS BLOOD / Unknown Venipuncture / Unknown 11/06/2024 16:17 EST 11/06/2024 17:10 EST Nikolay Elizabeth MD MPH IMMUNOLOGY AND SEROLOGY ORD ERABLES Final Result Performing Organization Address [facility] Co de Phone Number [facility] [address] [place] [address] * RO52 ANTIBODY, IGG (11/06/2024 16:17 EST) Ro52 Anitbody, IgG <2.3 <20.0 CU 2023 10:02 EST [facility] Comment:Results were obtaine d with the [employer] QUANTA Flash Ro52 chemiluminescent immunoassay. Values obtained with different manufacturers' assay methods must not be used interchangeably. Blood VENOUS BLOOD / Unknown Venipuncture / Unknown 11/06/2024 16:17 EST 11/06/2024 17:10 EST us Nikolay Elizabeth MD MPH IMMUNOLOGY AND SEROLOGY ORD ERABLES Final Result Performing Organization Address [facility] Co de Phone Number [facility] [address] [place] [address] * SS-B (LA) ANTIBODY, IGG (11/06/2024 16:17 EST) SSB Antibody, IgG <3.3 <20.0 CU 024 10:02 EST [facility] Comment:Results were obtaine d with the [employer] QUANTA Flash SS-B chemiluminescent immunoassay. Values obtained with different manufacturers' assay methods must not be used interchangeably. Blood VENOUS BLOOD / Unknown Venipuncture / Unknown 11/06/2024 16:17 EST 11/06/2024 17:10 EST us Nikolay Elizabeth MD MPH IMMUNOLOGY AND SEROLOGY ORD ERABLES Final Result Performing Organization Address [facility] de Phone Number [facility] [address] [place] [address] * SM ([place]) ANTIBODY, IGG (11/06/2024 16:17 EST) SM ([place]) Antibody, IgG <8.0 <20.0 CU 11/07/2024 10:02 EST [facility] Comment:Results were obtaine d with the [employer] QUANTA Flash Sm chemiluminescent immunoassay. Values obtained with different manufacturers' assay methods must not be used interchangeably. Blood VENOUS BLOOD / Unknown Venipuncture / Unknown 11/06/2024 16:17 EST 11/06/2024 17:10 EST us Nikolay Elizabeth MD MPH IMMUNOLOGY AND SEROLOGY ORD ERABLES Final Result Performing Organization Address [facility] Co de Phone Number [facility] [address] [place] [address] * CCP ANTIBODIES (11/06/2024 16:17 EST) CCP Antibodies <2.5 <5.0 U/mL 11/07/2024 10:17 EST [facility] Blood VENOUS BLOOD / Unknown Venipuncture / Unknown 11/06/2024 16:17 EST 11/06/2024 17:10 EST Nikolay Elizabeth MD MPH IMMUNOLOGY AND SEROLOGY ORD ERABLES Final Result Performing Organization Address [facility] de Phone Number [facility] [address] [place] [address] * 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, IGG (11/06/2024 16:17 EST) FIELD ACCOUNT MANAGER Antibody, IgG <6.0 <20.0 CU 024 10:02 EST [facility] Comment:Results were obtaine d with the [employer] QUANTA Flash FIELD ACCOUNT MANAGER chemilumenscent immunoassay. Values obtained with different manufacturers' assay methods may not be used interchangeably. Blood VENOUS BLOOD / Unknown Venipuncture / Unknown 11/06/2024 16:17 EST 11/06/2024 17:10 EST Nikolay Elizabeth MD MPH IMMUNOLOGY AND SEROLOGY ORD ERABLES Final Result Performing Organization Address [facility] de Phone Number [facility] [address] [place] [id number] * SCL 70 ANTIBODY, IGG, SERUM (11/06/2024 16:17 EST) Scl 70 Ab, IgG, S <0.2 <1.0 (Negative ) U 11/08/2024 9:53 EST [facility] Comment: Test Performed by: [facility] [place] [id number] Parcel Wrapper: Sadie Hendricks Ph.D.; CLIA# [id number] Blood VENOUS BLOOD / Unknown Venipuncture / Unknown 11/06/2024 16:17 EST 11/06/2024 17:04 EST us Nikolay Elizabeth MD MPH IMMUNOLOGY AND SEROLOGY ORD ERABLES Final Result [facility] [address] [place] [address] * DOUBLE STRANDED DNA ANTIBODY, IGG (11/06/2024 16:17 EST) dsDNA Ab, IgG <22.0 <27.0 IU/mL 11/07/2024 10:02 [facility] Comment: Negative: <27.0 IU/mL Indeterminate: 27.0 - 35.0 IU/mL Positive: >35.0 IU/mL Results were obtained with PowerPracticalA Flash dsDNA chemiluminescent immunoassay. Values obtained with different manufacturers' assay methods may not be used interchangeably. Blood VENOUS BLOOD / Unknown Venipuncture / Unknown 11/06/2024 16:17 EST 11/06/2024 17:10 EST us Nikolay Elizabeth MD MPH IMMUNOLOGY AND SEROLOGY ORD ERABLES Final Result [facility] [address] [place] [id number] * (ABNORMAL) UA CHEMICAL & SEDIMENT (11/06/2024 16:17 EST) Color UA Yellow Colorless, Yellow 11/06/2024 17:04 [facility] Clarity UA Clear Clear 11/06/2024 17:04 [facility] Glucose UA Negative Negative 11/06/2024 17:04 [facility] Bilirubin UA Negative Negative 11/06/2024 17:04 [facility] Ketones UA Negative Negative 11/06/2024 17:04 [facility] Specific Bryan, Urine 1.019 1.001 - 1.030 11/06/2024 17:04 [facility] Blood UA Negative Negative 11/06/2024 17:04 [facility] Urobilinogen UA 1.0 0.2-1.0 mg/dL mg/dL 11/06/2024 17:04 [facility] Nitrite UA Negative Negative 11/06/2024 17:04 [facility] Leukocyte Esterase UA Trace(A) Negative 11/06/2024 17:04 [facility] Protein UA Negative Negative 11/06/2024 17:04 [facility] pH, UA 7.0 5.0 - 8.0 11/06/2024 17:04 [facility] Urine RBC Count, Auto 0 - 2 0 - 2 Cells/HPF 11/06/2024 17:04 [facility] Urine WBC Count, Auto 4 - 9(A) 0 - 3 Cells/HPF 11/06/2024 17:04 [facility] Urine Squamous Count, Auto Few(A) None Seen Cells/HPF 11/06/2024 17:04 [facility] Urine Hyaline Cast Count, Auto <=10 <=10 Casts/LPF 11/06/2024 17:04 [facility] Urine Bacteria Count, Auto Moderate(A) None Seen Bacteria/HP F 11/06/2024 17:04 [facility] Urine URINE SPECIMEN OBTAINED BY CLEAN CATCH PROCEDURE / Unknown Urine Collect / Unknown 11/06/2024 16:17 EST 11/06/2024 16:58 [facility] - 11/06/2024 17:04 EST Urine Sediment Analysis results are unreliable on urines that are unrefrigerated for >2 hrs or refrigerated >8 hrs. us Nikolay Elizabeth MD MPH URINALYSIS ORDERABLES Final Result [facility] [address] [place] [address] * COMPLETE BLOOD COUNT AND DIFFERENTIAL (11/06/2024 16:17 EST) WBC 6.08 4.00 - 12.40 K/cmm 11/06/2024 17:25 [facility] RBC 4.63 3.86 - 5.04 M/cmm 11/06/2024 17:25 [facility] Hemoglobin 13.1 11.6 - 15.2 g/dL 11/06/2024 17:25 [facility] HCT 37.9 34.9 - 44.4 % 11/06/2024 17:25 [facility] MCV 82 81 - 98 fL 11/06/2024 17:25 [facility] MCH 28.3 26.7 - 33.3 pg 11/06/2024 17:25 [facility] MCHC 34.6 32.1 - 35.9 g/dL 11/06/2024 17:25 [facility] RDW-CV 11.9 <14.7 % 11/06/2024 17:25 [facility] RDW-SD 35.3 <50.4 fl 11/06/2024 17:25 [facility] PLT 267 141 - 377 K/cmm 11/06/2024 17:25 [facility] MPV 10.0 9.5 - 12.7 fL 11/06/2024 17:25 [facility] % Neutrophils 51.2 Not Indicated % 11/06/2024 17:25 [facility] % Lymphocytes 40.0 Not Indicated % 11/06/2024 17:25 [facility] % Monocytes 7.1 Not Indicated % 11/06/2024 17:25 [facility] % Eosinophils 0.7 Not Indicated % 11/06/2024 17:25 [facility] % Basophils 0.7 Not Indicated % 11/06/2024 17:25 [facility] % Immature Grans 0.3 Not Indicated % 11/06/2024 17:25 [facility] Absolute Neutrophils 3.12 2.20 - 8.85 K/cmm 11/06/2024 17:25 [facility] Absolute Lymphocytes 2.43 1.09 - 3.30 K/cmm 11/06/2024 17:25 [facility] Absolute Monocytes 0.43 0.10 - 0.80 K/cmm 11/06/2024 17:25 [facility] Absolute Eosinophils 0.04 0.03 - 0.61 K/cmm 11/06/2024 17:25 [facility] ABS Basophils 0.04 0.01 - 0.11 K/cmm 11/06/2024 17:25 [facility] Absolute Immature Grans 0.02 0.00 - 0.06 K/cmm 11/06/2024 17:25 [facility] Type of Differential: Auto 11/06/2024 17:25 [facility] Blood VENOUS BLOOD / Unknown Venipuncture / Unknown 11/06/2024 16:17 EST 11/06/2024 17:10 EST Nikolay Elizabeth MD MPH PACKAGES & DNA PROBE ORDERA BLES Final Result [facility] [address] [place] [address] * C3 COMPLEMENT (11/06/2024 16:17 EST) C3 Complement 87 81 - 157 mg/dL 11/07/2024 11:04 [facility] Blood VENOUS BLOOD / Unknown Venipuncture / Unknown 11/06/2024 16:17 EST 11/06/2024 17:10 EST Nikolay Elizabeth MD MPH CHEMISTRY & BLOOD GAS ORDER JAD Final Result [facility] [address] [place] [address] * C4 COMPLEMENT (11/06/2024 16:17 EST) C4 Complement 39 13 - 39 mg/dL 11/07/2024 11:04 [facility] Blood VENOUS BLOOD / Unknown Venipuncture / Unknown 11/06/2024 16:17 EST 11/06/2024 17:10 EST us Nikolay Elizabeth MD MPH CHEMISTRY & BLOOD GAS ORDER JAD Final Result [facility] [address] [place] [address] * COMPREHENSIVE METABOLIC PANEL (CMP) (11/06/2024 16:17 EST) Sodium 140 136 - 145 mmol/L 11/06/2024 17:55 [facility] Potassium 3.9 3.5 - 5.0 mmol/L 11/06/2024 17:55 [facility] Chloride 105 96 - 110 mmol/L 11/06/2024 17:55 [facility] CO2 Total 22 22 - 32 mmol/L 11/06/2024 17:55 [facility] Glucose 89 70 - 99 mg/dl 11/06/2024 17:55 [facility] BUN 12 10 - 26 mg/dL 11/06/2024 17:55 [facility] Creatinine 0.66 0.52 - 1.04 mg/dL 11/06/2024 17:55 [facility] eGFR 122 >60 mL/min/1.7 3m2 11/06/2024 17:55 [facility] Total Protein 7.5 6.3 - 8.2 g/dL 11/06/2024 17:55 [facility] Albumin 4.8 3.4 - 4.9 g/dL 11/06/2024 17:55 [facility] Alkaline Phosphatase 48 38 - 126 U/L 11/06/2024 17:55 [facility] AST 17 15 - 46 U/L 11/06/2024 17:55 [facility] ALT 12 <35 U/L 11/06/2024 17:55 [facility] Bilirubin, Total <0.5 <1.4 mg/dL 11/06/20 17:55 [facility] Calcium 9.6 8.5 - 10.5 mg/dL 11/06/2024 17:55 EST [facility] Albumin/Globulin Ratio 1.8 1.0 - 2.5 11/06/2024 17:55 EST [facility] Anion Gap 13 5 - 14 mmol/L 11/06/2024 17:55 EST [facility] Blood VENOUS BLOOD / Unknown Venipuncture / Unknown 11/06/2024 16:17 EST 11/06/2024 17:10 EST us Nikolay Elizabeth MD MPH CHEMISTRY & BLOOD GAS ORDER JAD Final Result [facility] [address] [place] [id number] * US PELVIS TRANSVAGINAL COMPLETE (10/09/2024 14:48 EST) Anatomical Region Laterality Modality Pelvis Ultrasound 10/09/2024 14:5 3 EST Narrative 10/09/2024 15:14 EST Assessment LMP on 09/19/2024 Uterus ====== Uterus: ?Visualized Uterus position: ?? Anteverted Description of uterine malformations: ??None Myometrium: ?Appears normal Endometrium: ?? Thin endometrium Cervix details: ?Normal appearance Uterus length ??77.6 mm Uterus width ?? 55.7 mm Uterus height ??32.6 mm Endometrial thickness, total ?? 3.8 mm Right Ovary ========= Rt ovary: ??Visualized Outline: ?? Smooth Rt ovary morphology: ?? Corpus Luteum Rt ovary D1 ?36.8 mm Rt ovary D2 ?24.8 mm Rt ovary D3 ?25.9 mm Rt ovary Vol ?? 12.4 cm cubed Rt ovarian corpus luteum: ??collapsed Left Ovary ======== Lt ovary: ??Visualized Outline: ?? Smooth Lt ovary D1 ?56.8 mm Lt ovary D2 ?46.6 mm Lt ovary D3 ?43.2 mm Lt ovary Vol ?? 59.9 cm cubed Lt ovarian cyst D1 48.3 mm Lt ovarian cyst D2 32.5 mm Lt ovarian cyst D3 40.7 mm Lt ovarian cyst mean ?? 40.5 mm Lt ovarian cyst vol ?33.452 cm cubed Lt ovarian cyst findings: ??unilocular, anechoic, mural irregularity suggestive of a serous cystadenoma Cul de Sac ========= Appears normal. Free fluid visualized: mild Method ====== Transvaginal ultrasound examination, Transducer # . View: Good view Impression ========= Transvaginal Pelvic -[id number] The uterus is anteverted with a normal myometrium and thin endometrium. The right ovary and adnexa are normal. The left ovary has a unilocular, anechoic ovarian cyst with a mural irregularity suggestive of a serous cystadenoma. Differential dx includes a function cyst. Consider repeat US in 4-6 months. There is mild free fluid in the cul de sac. Follow-up ======== With Dr. Shoemaker today Comment ======== Ultrasound findings discussed w/patient. DATE OF SERVICE: 10/09/2024 Procedure Note Em Eisenberg MD - 10/09/2024 Assessment LMP on 09/19/2024 Uterus ====== Uterus: Visualized Uterus position: Anteverted Description of uterine malformations: None Myometrium: Appears normal Endometrium: Thin endometrium Cervix details: Normal appearance Uterus length 77.6 mm Uterus width 55.7 mm Uterus height 32.6 mm Endometrial thickness, total 3.8 mm Right Ovary ========= Rt ovary: Visualized Outline: Smooth Rt ovary morphology: Corpus Luteum Rt ovary D1 36.8 mm Rt ovary D2 24.8 mm Rt ovary D3 25.9 mm Rt ovary Vol 12.4 cm cubed Rt ovarian corpus luteum: collapsed Left Ovary ======== Lt ovary: Visualized Outline: Smooth Lt ovary D1 56.8 mm Lt ovary D2 46.6 mm Lt ovary D3 43.2 mm Lt ovary Vol 59.9 cm cubed Lt ovarian cyst D1 48.3 mm Lt ovarian cyst D2 32.5 mm Lt ovarian cyst D3 40.7 mm Lt ovarian cyst mean 40.5 mm Lt ovarian cyst vol 33.452 cm cubed Lt ovarian cyst findings: unilocular, anechoic, mural irregularitysuggestive of a serous cystadenoma Cul de Sac ========= Appears normal. Free fluid visualized: mild Method ====== Transvaginal ultrasound examination, Transducer # . View: Good view Impression ========= Transvaginal Pelvic -[id number] The uterus is anteverted with a normal myometrium and thin endometrium. The right ovary and adnexa are normal. The left ovary has a unilocular, anechoic ovarian cyst with a muralirregularity suggestive of a serous cystadenoma. Differential dx includesa function cyst. Consider repeat US in 4-6 months. There is mild free fluid in the cul de sac. Follow-up ======== With Dr. Shoemaker today Comment ======== Ultrasound findings discussed w/patient. DATE OF SERVICE: 10/09/2024 us Kalyani Douglas MD IM US OB ORDERABLES Final Res ult * PAP TEST (08/01/2024 13:45 EDT) Specimens A. Cervix and/or Endocervix , ThinPrep Imaging System with Manual Evaluation 08/15/2024 11:52 T [facility] Specimen Adequacy Satisfactory for Evaluation - transformation zone component present 08/15/2024 11:52 [facility] General Categorization Negative for intraepithelial lesion or malignancy 08/15/2024 11:52 [facility] Attestation . 08/15/2024 11:52 [facility] at 1152 Clinical History SEE BELOW 08/15/20 11:52 [facility] Performing Lab [facility] 08/15/2024 11:52 [facility] Scanned Images 08/15/2024 11:52 [facility] Pap Test CERVIX UTERI STRUCTURE / Unknown 08/01/2024 13:45 EDT 08/06/2024 14:27 EDT us Kalyani Douglas MD PATHOLOGY ORDERABLES Final Res ult [facility] [address] [place] [address] * HIV 1/2 ANTIGEN AND ANTIBODY, 4TH GENERATION (07/31/2019 12:41 EDT) Pathologist [facility] [place] HIV 1/2 Antibody Negative Negative 07/31/20 19 15:16 EDT [facility] Comment: Fourth generation assay performed on the Siemens MiMediaaur. If acute HIV-1 infection is suspected in a high risk patient, submit plasma specimen for HIV-1 RNA quantification test. Blood specimen (specimen) BLOOD SPECIMEN / Unknown 07/31/2019 12:41 EDT 07/31/2019 12:51 EDT us Mariluz Hancock ABLE BODIED TANKERMAN CNM IMMUNOLOGY AND SE ROLOGY ORDERABLES Final Result Performing Organization Address [facility]/ZIP Co de Phone Number [facility] [address] [place] [address] * GC/CHLAMYDIA PCR - [facility] (10/09/2018 10:19 EST) [facility] CHLAMYDIA PCR - [facility] NOT DETECTED 10/09/2018 17:50 EST [facility] GONORRHEA PCR - [facility] NOT DETECTED 10/09/2018 17:50 EST [facility] SOURCE CERVIX 10/09/2018 17:50 EST [facility] 10/09/2018 10:1 9 EST 10/09/2018 14:47 EST us Maria Ines Crow MD CHEMISTRY & BLOOD GAS ORDERAB LES Final Result [facility] * HUMAN PAPILLOMAVIRUS (HPV) DETECTION-HIGH RISK TYPES (08/09/2017 14:01 EDT) Pathologist [facility] HPV other High Risk types, PCR NEG 08/25/2017 15:16 EDT [facility] Comment: Negative for HPV types 16, 18, 31, 33, 35, 39, 45, 51, 52, 56, 58, 59, 66, 68. Method: Cervista HPV HR (High Risk) DNA test. 08/09/2017 14:0 1 EDT 08/22/2017 14:01 EDT us Gill Traore MD MICROBIOLOGY - GENERAL ORDER JAD Final Result [facility] from Last 3 Months or Most Recently Relevant to Health Maintenance Insurance [place] For more information, please contact: [phone] * Full Code (Latest Code Status on File) Date Activated Date Inactivated Comments 01/30/2020 23:14 01/31/2020 7:21 Question Answer Comments Reason for decision includes: Full code consistent with overall plan of care Who participated in the discussion? Not Discusse d * Full Code Date Activated Date Inactivated Comments 12/22/2019 17:24 12/22/2019 23:00 Question Answer Comments Reason for decision includes: Full code consistent with overall plan of care Who participated in the discussion? Not Discusse d Care Teams Gear Setter Relationship Specialty Start Date End Date Kalyani Douglas MD [address] [place] [id number] PCP - General Family Medicine - Primary Care 03/27/24 Liz Aguilar DO [address] [place] [id number] Family Medicine - Primary Care 03/27/24
--- OUTSIDE RECORDS SUMMARY | 2024-12-08 15:28 | XMS_ITS | Encounter Summary ---
[place] [address] Care Team Providers Care Lens Hardener Name Role Phone Kalyani Douglas MD Primary Care Provider [phone] Reason for Referral * Consultation (Routine) - Denied Specialty Diagnoses / Procedures Referred By Contac t Referred To Contact Rheumatology Diagnoses Arthralgia, unspecified joint POSITIVE SOCORRO, VERY STRONG FAMILY HISTORY OF RHEUMATOLOGIC CONDITIONS, STIFF LOW BACK, POLYARTHRALGIAS Kalyani Douglas MD [address] [place] [phone] [facility] [address] [place] [phone] Referral ID Status Reason Start Date Expiration Date V isits Requested Visits Authorized [id number] Denied Consult, Test & Treat PCP Updated and/or Approved 2024 2025 6 0 Encounter Details Date Type Department Care Team (Latest Contact Info) Description 2024 Transcribe Orders eDH Incoming Referrals [phone] Kalyani Douglas MD [address] [place] [address] Arthralgia, unspecified joint Social History Tobacco Use Types Packs/Day Years Used Date Smoking Tobacco: Never Assessed Sex and Gender Information Value Date Recorded Sex Assigned at Not on file Gender Identity Not on file Sexual Orientation Not on file documented as of this encounter Plan of Treatment Scheduled Referrals Name Type Priority Associated Diagnoses Orde r Schedule Referral to Rheumatology Outpatient Referral Routine Arthralgia, unspecified joint Ordered: 2024 documented as of this encounter Visit Diagnoses Diagnosis Arthralgia, unspecified joint documented in this encounter Care Teams Lens Hardener Relationship Specialty Start Date End Date Kalyani Douglas MD [address] [place] [address] PCP - General Family Medicine 03/25/24 documented as of this encounter
--- OUTSIDE RECORDS SUMMARY | 2024-12-08 15:29 | XMS_ITS | Encounter Summary ---
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 [address] [place] [address] Phone: tel: fax: [facility] PUBLIC RELATIONS REPRESENTATIVE/KIRILL Referral ID Status Reason Start Date Expiration Date Visits Requested Visits Authorized [id number] Authorization Not Required 4 1 1 Reason for Visit * Reason Comments Advice Only consult * Consult, Test and Treat (Routine) - Receiving Office to Obtain Authorization Specialty Diagnoses / Procedures Referred By Seema t Referred To Contact Obstetrics & Gynecology Diagnoses Pelvic and perineal pain Kalyani Douglas MD [address] [place] [address] Phone: tel: fax: [facility] - [facility] [address] [place] [address] Phone: tel: fax: Referral ID Status Reason Start Date Expiration Date Visits Requested Visits Authorized [id number] Receiving Office to Obtain Authorization 1 1 Encounter Details Date Type Department Care Team (Late st Contact Info) Description 10/09/2024 15:45 EST Initial consult [facility] - [address] [address] Farrah Shoemaker MD [address] [facility], [address] [place] [address] Cyst of left ovary (Primary Dx) Social History Tobacco Use Types Packs/Day Years Used Date Smoking Tobacco: Never Smokeless Tobacco: Never Alcohol Use Standard Drinks/Week Comments No 0 (1 standard drink = 0.6 oz [...] place to sleep or slept in a prison (including now)? No 10/18/2022 Interpersonal Safety Answer Date Record ed How often does anyone, maico chandler family, hit, punch or physically hurt you? Never 10/18/2022 How often does anyone, maico chandler family, insult, scream, curse or threaten to hurt you? Never 10/18/2022 Comments No Sex and Gender Information Value Date Recorded Sex Assigned at Female 11/06/2024 15:56 EST Legal Sex Female 15:52 EDT Gender Identity Female 11/12/2019 14:09 EST Sexual Orientation Not on file documented as of this encounter Last Filed Vital Signs Vital Sign Reading Time Taken Comments Blood Pressure 110/65 10/09/2024 1522 EST Pulse - - Temperature - - Respiratory Rate - - Oxygen Saturation - - Inhaled Oxygen Concentration - - Weight 57.9 kg (127 lb 9.6 oz) 10/09/[address] Height - - Body Mass Index 23.34 12/23/2022 0052 EST documented in this encounter Functional Status * Are you deaf or do you have serious difficulty hearing? Answer Date of Assessment Author No 01/30/2020 23:20 Andrea Wilson ace, RN * Are you blind or do you have serious difficulty seeing, even when wearing glasses? Answer Date of Assessment Author No 01/30/2020 23:20 Andrea Wilson ace, RN * Do you have serious difficulty walking or climbing stairs? (5 years old or older) Answer Date of Assessment Author No 01/30/2020 23:20 Andrea Wilson ace, RN * Do you have difficulty dressing or bathing? (5 years old or older) Answer Date of Assessment Author No 01/30/2020 23:20 Andrea Wilson ace, RN * Because of a physical, mental, or emotional condition, do you have difficulty doing errands alone such as visiting a doctor's office or shopping? (15 years old or older) Answer Date of Assessment Author No 01/30/2020 23:20 Andrea Wilson ace, RN documented as of this encounter Mental Status * Because of a physical, mental, or emotional condition, do you have serious difficulty concentrating, remembering, or making decisions? (5 years old or older) Answer Entry Date Author No 01/30/2020 23:20 Andrea Wilson ace, RN documented in this encounter Progress Notes * Demetrius Fagan - 10/09/2024 1545 EST PUBLIC RELATIONS REPRESENTATIVE Consult CC: Pelvic pain HPI: 29 y.o. with PMHx of PCOS and ovarian cysts who presents for a PUBLIC RELATIONS REPRESENTATIVE consult due to persistent pelvicpain. Patient notes that she has longstanding history of pelvic pain but has had onset of new pelvic painfor 6-7 months. Shares that she now feels a generalized and deep pelvic pain which will be present for three weeks out of the month. She says that onset is usually a week before period begins and it will persist until five days after her period ends. In addition to the pelvic pain, she will feel a deep pain in her central lower back as well. On bad days, the pain is an 8-10, which is usually fivedays out of the month. On other days, it tends to be a 6/10. She uses midol, tylenol and heat, which help manage the severity of pain, although it does not disappear. Since the onset of the new pelvic pain, she shares that she has noticed a difference in the flow and consistency of her menstrual blood as well. She shares that periods used to be darker in color andthicker in consistency. Now periods are a bright red and more watery. She denies SOB, fatigue, heart palpitations or lightheadedness. Periods are still regular, unchanged cycle and length. Lasts fivedays and gets period every 28 days. Sex tends to make her pain worse. She shares that for the past six to seven months she has also bleeding during intercourse. Happens every time. More than spotting, will stop by the end of the day. Denies vaginal itching, burning, or dysuria. She has an extensive history of trying multiple forms of hormonal and nonhormonal contraceptives including IUDs, pills, and implant. Notes that her bleeding was significantly worsened with these and she would feel ill. Does not want to be on an OCP. had vasectomy in 2019, after of their daughter. Started metformin and spironolactone three years, which has helped make her periods less painful and more regulated. No new medications. No history of blood clotting disorders. Remote history of anemia, but none as of recently. Had an ovarian cyst rupture seven years ago, remembers that it was painful but is unsure if this pain is similar or different, The rupture itself caused her to vomit from the pain. Self resolved. Past Medical History Past Surgical History Past Medical History: Diagnosis Date ADHD (attention deficit hyperactivity disorder) Anxiety Depression Dysmenorrhea Low vitamin D level PTSD (post-traumatic stress disorder) Rubella non-immune status, antepartum 11/18/2019 Give pp Sleep disorder Thyromegaly TMJ syndrome Vaginal delivery 01/2020 no anesthesia Vertigo Past Surgical History: Procedure Laterality Date DILATION AND CURETTAGE OF UTERUS WISDOM TOOTH EXTRACTION Obstetric History Gynecologic History OB History Para Term AB Living 3 1 1 0 2 1 SAB IAB Ectopic Multiple Live Births 0 2 0 0 1 # Outcome Date GA Lbr Juan Carlos/2nd Weight Sex Type Anes PTL Lv 3 Term 01/31/20 39w0d / 00:27 3350 g (7 lb 6.2 oz) F VIPUL 2 IAB 2017 10w0d 1 IAB 2016 4w0d Menses: Menarche: 11/08 LMP: September 19 Cycle: 30 days Length: 5 days Pelvic pain: Yes Vaginal discharge: No Cervical cancer screening: in July 2024, normal results. ACUS in 2016, HPV - STI's: no history of STIs Sexual activity: Yes, with , no use of protection. Contraception: vasectomy HPV vaccination: No Social History Family History Social History Tobacco Use Smoking status: Never Smokeless tobacco: Never Substance Use Topics Alcohol use: No Drug use: No Problem Relation Name Comments Anxiety Disorder Mother Anxiety Disorder Brother Arthritis-Osteo Maternal Grandmother Breast Cancer Maternal Grandmother Colon Cancer Maternal Grandfather Depression Maternal Grandmother Depression Mother Depression Brother Diabetes Paternal Grandmother Diabetes Paternal Grandfather Heart Disease Maternal Grandmother Hypertension Maternal Grandmother Hypertension Maternal Grandfather Mental Illness Mother Osteoporosis Maternal Grandmother SLE Maternal Grandmother Denies any history of known cancers or genetic conditions that run in her family. Medications Allergies Current Outpatient Medications Medication fexofenadine (MARTHA) 60 mg tablet ibuprofen (MOTRIN) 400 mg tablet lisdexamfetamine (VYVANSE) 30 mg capsule LORazepam (ATIVAN) 0.5 mg tablet ondansetron (ZOFRAN-ODT) 4 mg disintegrating tablet spironolactone (ALDACTONE) 50 mg tablet No current facility-administered medications for this visit. Allergies Allergen Reactions Novocain [Procaine] Nausea And Vomiting Physical Exam: BP 110/65 Wt 57.9 kg (127 lb 9.6 oz) BMI 23.34 kg/m?? GEN: No acute distress PULM: normal respiratory effort ABD: Soft, marked tenderness along lower left quadrant with light and deep palpation, some tenderness along lower right quadrant with deep palpation, non- distended, no masses or hepatosplenomegaly Pelvic exam declined Imaging: Transvaginal US (10/09/24) Impression ========= Transvaginal Pelvic -[id number] The uterus is anteverted with a normal myometrium and thin endometrium. The right ovary and adnexa are normal. The left ovary has a unilocular, anechoic ovarian cyst with a mural irregularity suggestive of a serous cystadenoma. Differential dx includes a function cyst. Consider repeat US in 4-6 months. There is mild free fluid in the cul de sac. TVUS 07/2024 [facility] [place] ([place]) Normal appearing uterus with endometrial stripe wnl 3.8 x 3.6 x 5.0cm simple left ovarian cyst, likely physioogic Unremarkable R ovary Assessment/Plan: 29 y.o. with PMHx of PCOS and ovarian cysts who presents for a PUBLIC RELATIONS REPRESENTATIVE consult due to persistent pelvic pain. Patient's history, physical exam, and imaging findings all support presence of deep pelvic pain in the setting of the presence of a left ovarian cystadenoma. Patient has a history of ovarian cysts and pain appears to be aligned with expected generalized deep pelvic pain, with exacerbations near menses. Patient's new onset of bleeding with intercourse seems to be aligned with ectropion, seen on exam at [facility] [place] 07/2024 (exam declined today). Patient was counseled on this being abenign finding and something that will likely fluctuate over time. Patient was counseled on the options for management of cystadenoma, being expectant management vs surgery. Surgery more appropriate with unretractable pain, 5 cm dimensions of cyst, and growth over time. Patient was encouraged to continue use of NSAIDs and heat to help with management of symptoms with interval imaging to assess cyst changes and possible surgical management in the future PRN. Torsion precautions discussed. Also counseled of the benefit of hormonal treatment for cysts, which patient defers at this time. - TVUS in 4 months, continue to monitor cystadenoma Attending Attestation: I was present with the medical student for the history, exam, and medical decision making documented by him/her. I have personally performed my own physical exam and medical decision making. I have verified and agree with (or, as indicated in blue, have edited) the medical student???s documentation. Farrah Shoemaker MD I spent a total of 30 minutes on the date of this encounter meeting with the patient and an additional 5 minutes reviewing documentation/coordinating care as described in the above note. A total of 35 minutes were spent caring for this patient. No procedures were performed at the time of the visit. Demetrius Fagan, MS3 10/09/2024 19:50 documented in this encounter Plan of Treatment Upcoming Encounters Date Type Department Care Team (Late st Contact Info) Description 12/11/2024 9:25 EST Hospital Encounter [facility] OR [address] [place] [address] [phone] Celeste Cooper MD [address] [place] [phone] 12/11/2024 9:25 EST - 12/11/2024 11:40 EST Surgery [facility] OR [address] [place] [address] [id number] Celeste Cooper MD [address] [place] [address] [address] [place] [phone] Laparoscopic left ovarian cystectomy [51054 (CPT??)] 12/31/2024 16:15 EST Post-op Visit [facility] [address] [id number] Jessika Upton MD [address] [place] [phone] 02/06/2025 13:10 EDT Appointment [facility] [address] [phone] 03/05/2025 8:40 EDT Office Visit [facility] [address] [phone] Nikolay Elizabeth MD MPH [address] [place] [address], [address] [place] [phone] Scheduled Orders Name Type Priority Associated Diagnoses Orde r Schedule US PELVIS TRANSVAGINAL COMPLETE Imaging Routine Cyst of left ovary Expected: 01/09/2025 (Approximate), Expires: 04/08/2026 Scheduled Procedures Name Priority Associated Diagnoses Date/Ti me LAPAROSCOPY, WITH EXCISION O R FULGURATION OF LESIONS OF OVARY, PELVIC VISCERA, OR PERITONEAL SURFACE Cyst of left ovary 12/11/2024 9:25 EST documented as of this encounter Visit Diagnoses Diagnosis Cyst of left ovary- Primary Other and unspecified ovarian cyst Cyst of left ovary Other and unspecified ovarian cyst documented in this encounter Care Teams Ware Finisher Relationship Specialty Start Date End Date Kalyani Douglas MD [address] [place] [phone] PCP - General Family Medicine - Primary Care 03/27/24 Liz Aguliar DO [address] [place] [address] [address] [place] [address] Family Medicine - Primary Care 03/27/24 documented as of this encounter
--- OUTSIDE RECORDS SUMMARY | 2024-12-08 15:29 | XMS_ITS | Encounter Summary ---
Author Organization [facility] Address [address] [place] [address] Care Team Providers Care Piano Mechanic Apprentice Name Role Phone Kalyani Douglas MD Primary Care Provider [phone] Lauren Marcemis Mikayla DO Unavailable [phone] Reason for Visit * Reason Comments Abdominal Pain Known ovarian cyst, surgery scheduled in November. Has been getting worse for past month, sent here by behavioral therapy coordinator for eval. VSS in triage Encounter Details Date Type Department Care Team (Late st Contact Info) Description 11/11/2024 19:32 EST - 11/11/2024 22:16 EST Emergency [facility] Emergency Department - [address] [phone] Livier Banerjee MD [address] [facility], [address] [place] [address] Left lower quadrant pain (Primary Dx); Left ovarian cyst Discharge Disposition: Home or Self Care Social History Tobacco Use Types Packs/Day Years Used Date Smoking Tobacco: Never Passive Smoke Exposure: Never Smokeless Tobacco: Never Alcohol Use Standard [...] place to sleep or slept in a retirement (including now)? No 10/18/2022 Interpersonal Safety Answer Date Record ed How often does anyone, inclu geraldine family, hit, punch or physically hurt you? Never 10/18/2022 How often does anyone, inclu geraldine family, insult, scream, curse or threaten to hurt you? Never 10/18/2022 Comments No Sex and Gender Information Value Date Recorded Sex Assigned at Female 11/06/2024 15:56 EST Legal Sex Female 15:52 EDT Gender Identity Female 11/12/2019 14:09 EST Sexual Orientation Not on file documented as of this encounter Last Filed Vital Signs Vital Sign Reading Time Taken Comments Blood Pressure 105/74 11/11/2024 2157 EST Pulse 89 11/11/2024 1803 EST Temperature 36.6 ??C (97.9 ??F) 11/11/2024 1803 EST Respiratory Rate 17 11/11/20247 EST Oxygen Saturation 100% 11/11/2024 215 EST Inhaled Oxygen Concentration - - Weight 54 kg (119 lb) 11/11/20241802 EST Height 157.5 cm (5' 2) 11/11/2024 180 EST Body Mass Index 21.77 11/11/2024 180 EST documented in this encounter Functional Status [...] of a physical, mental, or emotional condition, does this person have difficulty doing errands alone such as visiting a doctor's office or shopping? Answer Date of Assessment Author Yes 11/06/2024 14:51 Andrea Wilson ace, RN documented as of this encounter Mental Status * Because of a physical, mental, or emotional condition, does this person have serious difficulty concentrating, remembering, or making decisions? Answer Entry Date Author Yes 11/06/2024 14:51 Andrea Wilson ace, RN documented in this encounter Discharge Instructions * Discharge Instructions* Livier Banerjee MD - 11/11/2024 22:11 EST Thank you for visiting the emergency department. Your ultrasound today shows that you still have a left-sided cyst but it does not appear to be twisted (torsion quotation). You have been evaluated by our LEAD SECURITY OFFICER surgeon on-call. We will try to arrange for you to have your cyst removed at an earlier date. In the meantime we have sent a prescription for a stronger pain medication to your pharmacy. Please call your doctor when you get home. Return to the emergency department for fever, worsening pain, vomiting, or any other symptoms of concern. * Attachments The following attachments cannot be sent through Care Everywhere. * Ovarian Cyst: Functional (Turkish) documented in this encounter Medications at Time of Discharge fexofenadine (MARTHA) 60 mg tablet Take 1 Tablet by mouth as needed. ibuprofen (MOTRIN) 400 mg tablet Take 1 Tab by mouth every 4 hours as needed for Pain. 02/02/2020 ketOROLAC (TORADOL) 10 mg tablet Take 1 Tablet by mouth every 6 hours as needed for Pain. 20 Tablet 11/11/2024 lisdexamfetamine (VYVANSE) 30 mg capsuleIndications:A ttention deficit hyperactivity disorder (ADHD), predominantly inattentive type Take 1 capsule by mouth every morning. Daily Max: 30 mg 28 capsule 09/19/2022 LORazepam (ATIVAN) 0.5 mg tablet Take 1 Tab by mouth at bedtime as needed for Anxiety. Daily Max: 0.5 mg 15 Tab 1 11/18/2020 metFORMIN (GLUCOPHAGE) 500 mg tablet Take 1 Tablet by mouth every morning. 06/10/2023 ondansetron (ZOFRAN-ODT) 4 mg disintegrating tabletIndications:Na usea TAKE 1 TABLET BY MOUTH EVERY 8 HOURS NEEDED FOR NAUSEA 12 Tablet 3 05/31/2022 spironolactone (ALDACTONE) 50 mg tablet Take 1 Tablet by mouth every morning. 07/08/2022 VYVANSE 40 mg capsule Take 1 Capsule by mouth daily. documented as of this encounter Ordered Prescriptions Prescription Sig Dispense Quantity Refills Last Filled Start Date End Date ketOROLAC (TORADOL) 10 mg tablet Take 1 Tablet by mouth every 6 hours as needed for Pain. 20 Tablet 11/11/2024 documented in this encounter Discharge Disposition Disposition Code Departure Means Destination Comment s Home or Self Usp Pt had no further questions or concerns at discharge. Pt ambulated out of the department with a steady gate. documented in this encounter Progress Notes * Joie Posadas - 11/11/20242048 EST Department of Gynecology CC: left pelvic pain, Date of Service: 11/11/2024 Primary Gynecology Practice: [facility] HPI: Ulises Skelton is a 29 y.o. with known left ovarian cyst presenting for acute on chronic pain. Describes pain as low in left lq and achy, 4/10, occasionally 7/10. Also having some pain in her left back. Woke up today and felt crappy with a low grade temp. Some fatigue in the past few weeks. Not having nausea/vomiting. Took an ibuprofen, but not requiring multiple medications today. Having some diarrhea, but this has been present for a while. No vaginal bleeding, abnormal discharge. No chills/rigors, breast tenderness. No dysuria, had WBC in urine @ rheumatology visit earlier. Wondering if her surgery can happen tonight to eliminate her pain. LEAD SECURITY OFFICER History OB History Last pap 08/01/24 NILM neg HPV Has PCOS on metformin + spironolactone Tried mirena/copper IUD, nexplanon, POP, cOCP (unsure which brand) OB History Para Term AB Living 3 1 1 0 2 1 SAB IAB Ectopic Multiple Live Births 0 2 0 0 1 # Outcome Date GA Lbr Juan Carlos/2nd Weight Sex Type Anes PTL Lv 3 Term 01/31/20 39w0d / 00:27 3350 g (7 lb 6.2 oz) F VIPUL 2 IAB 2018 10w0d 1 IAB 2017 4w0d PMH PSH Past Medical History: Diagnosis Date ADHD (attention deficit hyperactivity disorder) Anxiety Depression Dysmenorrhea Low vitamin D level PTSD (post-traumatic stress disorder) Rubella non-immune status, antepartum 11/18/2019 Give pp Sleep disorder Thyromegaly TMJ syndrome Vaginal delivery 01/2020 no anesthesia Vertigo Past Surgical History: Procedure Laterality Date DILATION AND CURETTAGE OF UTERUS WISDOM TOOTH EXTRACTION Social History Family History Social History Tobacco Use Smoking status: Never Passive exposure: Never Smokeless tobacco: Never Substance Use Topics Alcohol use: No Family History Problem Relation Age of Onset Hypertension Maternal Grandmother Breast Cancer Maternal Grandmother 30 SLE Maternal Grandmother Arthritis-Osteo Maternal Grandmother Osteoporosis Maternal Grandmother Heart Disease Maternal Grandmother Depression Maternal Grandmother Hypertension Maternal Grandfather Colon Cancer Maternal Grandfather Depression Mother Anxiety Disorder Mother Mental Illness Mother Depression Brother Anxiety Disorder Brother Diabetes Paternal Grandmother Diabetes Paternal Grandfather Medications No current facility-administered medications for this encounter. Current Outpatient Medications Medication fexofenadine (MARTHA) 60 mg tablet ibuprofen (MOTRIN) 400 mg tablet lisdexamfetamine (VYVANSE) 30 mg capsule LORazepam (ATIVAN) 0.5 mg tablet metFORMIN (GLUCOPHAGE) 500 mg tablet ondansetron (ZOFRAN-ODT) 4 mg disintegrating tablet spironolactone (ALDACTONE) 50 mg tablet VYVANSE 40 mg capsule Allergies Allergies Allergen Reactions Novocain [Procaine] Nausea And Vomiting Objective: Vitals: 11/11/24 1803 BP: 112/69 Pulse: 89 Resp: 20 Temp: 36.6 ??C (97.9 ??F) SpO2: 100% Weight: 54 kg (119 lb) Height: 157.5 cm (62) Body mass index is 21.77 kg/m??. GEN: NAD, pleasant CV: RR PULM: breathing comfortably on room air ABD: soft, ND. Mild ttp in llq. EXT: NT, no edema, 2+ DPP. PELVIC: deferred Labs: UPT neg UA wnl Imaging: TVUS 11/11 Uterus: The anteverted uterus measures 8.6 x 3.9 x 5.1 cm in size. No focal lesion. Endometrium: The hyperechoic endometrium measures 0.3 cm in double endometrial stripe thickness, which is normal. No abnormal fluid collection. Right ovary: The right ovary measures 4.6 x 2.2 x 3.3 cm in size, for an estimated right ovarian volume of 17.2 mL. Within the inferior pole of the right ovary, there is a 1.9 x 1.5 x 1.6 cm heterogenously echogenic lesion with peripheral vascularity and internal crenulated appearance, similar in appearance to the ultrasound dated 10/09/2024 and favored to represent a collapsed corpus luteum. Left ovary: The left ovary measures 5.1 x 3.5 x 4.5 cm in size, for an estimated left ovarian volume of 42.5 mL. There is a 4.7 x 3.4 x 3.9 cm unilocular cystic lesion in the left adnexa with multiple (more than 4) small sub-2 mm echogenic mural nodules (cine KY 310, frames 21, 56). Cervix: Normal Free fluid: None. Other Findings: None. IMPRESSION: 1. No sonographic evidence of ovarian torsion. 2. Again seen is a 4.7 cm unilocular cystic lesion with small echogenic mural nodules in the left adnexa (O RADS 5). 3. Right corpus luteum. Assessment/Plan: Ulises Skelton is an 29 y.o. with known left ovarian cyst, with planned surgery in Nov of this year. Nontoxic appearing, not febrile, pain minimal on examination today, not requiring pain medications in the ED. Low concern for torsion with flow demonstrated on TVUS. WBC on urine at rheum contaminated with few squames, normal UA here. Plan to discharge with PO toradol for pain control, keep Preop visit 11/[address] Puente. May be amenable to moving surgery date up - will reach out to schedulers. Discussed may benefit from BC that skips first pass metabolism to avoid side effects, but could still prevent ovulation/cyst formation - ie nuvaring. Did not tolerate BC in the past - will discuss further at outpatient visit. Discussed with Dr. Maki. JOIE POSADAS 11/11/24 20:49 Obstetrics & Gynecology, PGY-3 Pager [phone] documented in this encounter ED Notes * Lee Humphries MD RDMS - 11/11/2024 1813 EST ED Triage Note 11/11/2024 18:13 Medical screening exam performed. Patient is a 29 y.o. female with past medical history of left ovarian cyst suspected cystadenoma plan for OR in November with Shea and who presents to the ED with acute on chronic left adnexal pain worsened over the last week and acutely worse in the last 2 days sent in by Shea for reevaluation. Pain is colicky sometimes severe associated with nausea no emesis no fevers chills sweats or systemicsymptoms. She did not report any abnormal vaginal bleeding. Will obtain UPT UA and pelvic ultrasound patient to be evaluated by ED provider. Exam was limited over telehealth, well-appearing sitting up comfortable in chair no acute distress Plan: 1) UA UPT pelvic ultrasound 2) Room patient in ED Lee Humphries MD RDMS Patient informed of next steps and anticipated wait to be seen by team on site. The concept of ???Telemedicine?? has been described to the patient. Patient has been informed of the anticipated benefits and possible risks. Patient understands the information provided regarding telemedicine, has had the opportunity to ask questions about this information, and all questions havebeen answered to patient's satisfaction. Patient consents for the use of telemedicine in his/her/their medical care and authorizes the transmission of any relevant medical information to providers and their staff involved in patient's medical or mental health care. Additionally, this patient and/or surrogate provided verbal consent to be evaluated by a virtual [id number]. Today's visit was provided through telemedicine video conferencing. The patient was located at the [facility] and the provider was located in their home office. In addition, Emergency Department nurse Pilar Fulton participated in the patient's care. * Livier Banerjee MD - 11/11/2024 1759 EST Emergency Department Visit Medical Decision Making Medical Decision Making 2048: Patient's OBGYN agreed to consult in the ED. In brief, this is a young woman with a history of PCOS and a known ovarian cyst, scheduled for cystectomy in a few weeks, presenting here with ongoing left sided abdominal pain as wells as self-reported low grade fever at home (although less than 100F). On my assessment, she appears well, afebrile,and has a tender abdomen but no rebound. US here demonstrates flow to the ovaries and continued presence of the known cyst, which appears unchanged from prior. Patient presentation discussed with gynresident outreach professional, who also came to evaluate the patient. She will try to arrange sooner follow up. No new recommendations at this time. Will discharge home with anticipatory guidance and strict return precautions. Problems Addressed: Left lower quadrant pain: acute illness or injury Left ovarian cyst: acute illness or injury Amount and/or Complexity of Data Reviewed Labs: Decision-making details documented in ED Course. Radiology: Decision-making details documented in ED Course. Risk Prescription drug management. Relevant Data as of 11/14/24 1305 Mon Nov 11, 2024 1948 US PELVIS TRANSABDOMINAL AND TRANSVAGINAL COMPLETE WITH LIMITED DUPLEX Preliminary result: IMPRESSION: 1. No sonographic evidence of ovarian torsion. 2. Again seen is a 4.7 cm unilocular cystic lesion with small echogenic mural nodules in the left adnexa (O RADS 5). 3. Right corpus luteum. [AC] 1947 POCT Test, Clinitek Not [AC] Relevant Data User Index [AC] Livier Banerjee MD Final diagnoses: Left lower quadrant pain Left ovarian cyst Disposition: Discharged Chief complaint: Abdominal pain RHINA Skelton is a 29 y.o. patient with past medical history of PCOS and ovarian cysts, followed by [facility] COVERER at [facility], who presents to the ED for abdominal pain. The patient reports experiencing worsening chronic constant pain over her left ovary with associated lower back pain in the past week. She reports experiencing nausea, and a fever of 99.8F today. She reports she was referred to the ED byher nurses at gynecology given her ongoing pain and fever. The patient reports her last menstrual period was 10/19-10/23/24. She reports she is scheduled for left ovarian cystectomy in November. She notes she is currently on medication to manage her PCOS, but denies taking hormonal control. Patient endorses lower abdominal pain, lower back pain, nausea, and fever. Patient denies vaginal bleeding, dysuria, chest pain, cough, vomiting, and diarrhea. History was provided by: Patient Records reviewed include: Outpatient clinic note OB dated 10/09/2024 for which the patient presented with persistent pelvic pain Patient's pertinent PMH, FH, SH were reviewed and edited as necessary. Nursing notes reviewed. A medical screening exam was performed. Physical Exam BP 105/74 Pulse 89 Temp 36.6 ??C (97.9 ??F) Resp 17 Ht 157.5 cm (62) Wt 54 kg (119 lb) SpO2 100% BMI 21.77 kg/m?? Physical Exam Constitutional: Well appearing, no acute distress. Head: Normocephalic, atraumatic Eyes: EOMI, no scleral icterus, normal conjuntiva Ears: Normal external findings Throat: Moist oral mucosa, no tonsillar swelling or exudates Neck: Supple, full ROM Heart: Regular rate and rhythm; no murmurs, rubs, or gallops Lungs: Speaking in full sentences, no respiratory distress. Clear to auscultation bilaterally without rales, rhonchi, or wheezes Abdomen: Tender to palpation in both lower quadrants, left greater than right. No rebound or guarding. Skin: Warm, dry. No overt rashes on exposed skin. Extremities: Moving spontaneously Neuro: Awake, alert, oriented. Speech is fluent. Cranial nerves grossly intact. Normal coordination. Psych: Normal affect, normal mood. Procedures Procedures This documentation is recorded by Gayle Gil acting as Scribe under the direction and presence of Livier Banerjee MD. Livier Banerjee MD: I personally performed the services recorded by the scribe in my presence. I confirm the scribe's documentation has been reviewed by me to accurately and completely record my work,treatment, procedures, and medical decision making. Note has been documented by Gayle Gil on 11/11/2024 documented in this encounter Plan of Treatment Upcoming Encounters Date Type Department Care Team (Late st Contact Info) Description 12/11/2024 9:25 EST Hospital Encounter [facility] OR [address] [place] [phone] Celeste Cooper MD [address] [place] [phone] 12/11/2024 9:25 EST - 12/11/2024 11:40 EST Surgery [facility] OR [address] [place] [phone] Celeste Cooper MD [address] [place] [phone] Laparoscopic left ovarian cystectomy [27598 (CPT??)] 12/31/2024 16:15 EST Post-op Visit [facility] - [address] [phone] Jessika Upton MD [address] [place] [phone] 02/06/2025 13:10 EDT Appointment [facility] [address] [phone] 03/05/2025 8:40 EDT Office Visit [facility]ology [facility]ology [address] [phone] Nikolay Elziabeth MD MPH [address] [facility], [address] [place] [address] Scheduled Procedures Name Priority Associated Diagnoses Date/Ti me LAPAROSCOPY, WITH EXCISION O R FULGURATION OF LESIONS OF OVARY, PELVIC VISCERA, OR PERITONEAL SURFACE Cyst of left ovary 12/11/2024 9:25 EST documented as of this encounter Procedures Procedure Name Priority Date/Time Associated Diagnosis Comments US PELVIS TRANSABDOMINAL AND TRANSVAGINAL COMPLETE WITH LIMITED DUPLEX STAT 11/11/2024 18:54 EST POCT TEST, CLINITEK STAT 11/11/2024 18:26 EST POCT CSN BARCODE URINE PREG TEST STAT 11/11/2024 18:25 EST POCT TEST, CLINITEK ORDER STAT 11/11/2024 18:25 EST UA SEDIMENT + REFLEX TO CULTURE STAT 11/11/2024 18:24 EST documented in this encounter Results * US PELVIS TRANSABDOMINAL AND TRANSVAGINAL [...] with worsening left adenexal pain sent by LEAD SECURITY OFFICER Findings: LMP: Unknown Uterus: The anteverted uterus [...] above interpretation and agree with the findings. [id number] Narrative 11/12/2024 8:51 EST US PELVIS TRANSABDOMINAL AND TRANSVAGINAL COMPLETE WITH LIMITED DUPLEX ??11/11/2024 6:36 PM SIGNS AND SYMPTOMS/COMMENTS: known left ovarian csyst suspect cystadenoma plan for OR in Nov here with worsening left adenexal pain sent by LEAD SECURITY OFFICER COMPARISON: Pelvic outside department ultrasound 10/09/2024. 10/05/2021.. DUPLEX: Indication for Duplex: Concern for ovarian torsion and/or mass Technique: Color and spectral Doppler ultrasound of the pelvis was performed. Resulting Agency Comment [id number] Procedure Note Franki Paz MD - 11/12/2024 US PELVIS TRANSABDOMINAL AND TRANSVAGINAL COMPLETE WITH LIMITED [id number]/11/2024 6:36 PM SIGNS AND SYMPTOMS/COMMENTS: known left ovarian csyst suspect cystadenomaplan for OR in Nov here with worsening left adenexal pain sent by LEAD SECURITY OFFICER COMPARISON: Pelvic outside department ultrasound 10/09/2024. 10/05/2021.. [...] with worsening left adenexal pain sent by LEAD SECURITY OFFICER Findings: LMP: Unknown Uterus: The anteverted uterus [...] the above interpretation andagree with the findings. [id number] Lee Humphries MD [facility] IMG US OB ORDERABLES Юлия l Result * POCT TEST, CLINITEK (11/11/2024 18:26 EST) UPT Result Negative Negative 11/11/2024 18:32 EST [facility] HN LAB COMMENT (CLINITEK, UPT) Test performed at Emergency Department 11/11/2024 18:32 EST [facility] Comment:False negative resul ts may occur in women who are beyond 5-8 weeks gestation. Diagnosis of should be based on a correlation of test results with typical clinical signs and symptoms. Urine URINE SPECIMEN OBTAINED BY CLEAN CATCH PROCEDURE / Unknown 11/11/2024 18:26 EST 11/11/2024 18:32 EST Result [facility] Lee Humphries MD [facility] POINT OF CARE TEST ORDERA BLES Final Result Performing Organization Address [facility]/ZIP Co de Phone Number [facility] [address] [place] [address] * POCT CSN BARCODE URINE PREG TEST (11/11/2024 18:25 EST) Urine URINE SPECIMEN OBTAINED BY CLEAN CATCH PROCEDURE / Unknown Urine Collect / Unknown 11/11/2024 18:25 EST 11/11/2024 18:25 EST Result [facility] Lee Humphries MD [facility] LAB INFO SERVICE AND SUPP ORT & PHONE RESULT Final Result Performing Organization Address [facility]/ZIP Co de Phone Number [facility] [address] [place] [address] * UA SEDIMENT + REFLEX TO CULTURE (11/11/2024 18:24 EST) Urine RBC Count, Auto 0 - 2 0 - 2 Cells/HPF 11/11/2024 18:45 EST [facility] Urine WBC Count, Auto 0 - 3 0 - 3 Cells/HPF 11/11/2024 18:45 EST [facility] Urine Squamous Count, Auto None Seen None Seen Cells/HPF 11/11/2024 18:45 EST [facility] Urine Hyaline Cast Count, Auto <=10 <=10 Casts/LPF 11/11/2024 18:45 EST [facility] Urine Bacteria Count, Auto None Seen None Seen Bacteria/H PF 11/11/2024 18:45 EST [facility] Urine URINE SPECIMEN OBTAINED BY CLEAN CATCH PROCEDURE / Unknown Urine Collect / Unknown 11/11/2024 18:24 EST 11/11/2024 18:32 EST Narrative [facility] - 11/11/2024 18:45 EST NOTE: Reflex to Urine Culture test is not indicated based on Urine Sediment Analysis results. Urine Sediment Analysis results are unreliable on urines that are unrefrigerated for >2 hrs or refrigerated >8 hrs. Lee Humphries MD RDCT URINALYSIS ORDERABLES Fin al Result [facility] [address] [place] [address] documented in this encounter Visit Diagnoses Diagnosis Left lower quadrant pain- Primary Abdominal pain, left lower quadrant Left ovarian cyst Other and unspecified ovarian cyst Cyst of left ovary Other and unspecified ovarian cyst documented in this encounter Care Teams Piano Mechanic Apprentice Relationship Specialty Start Date End Date Kalyani Douglas MD [address] [place] [phone] PCP - General Family Medicine - Primary Care 03/27/24 Liz Aguilar DO [address] [place] [address] [address] [place] [address] Family Medicine - Primary Care 03/27/24 documented as of this encounter
--- OUTSIDE RECORDS SUMMARY | 2024-12-08 15:29 | XMS_ITS | Encounter Summary ---
Author Organization [facility] Address [address] [place] [address] Care Team Providers Care Sports Medicine Specialist Name Role Phone Liz Aguilar DO Primary Care Provider [phone] Kalyani Douglas MD Primary Care Provider [phone] Liz Aguilar DO Unavailable [phone] Encounter Details Date Type Department Care Team (Late st Contact Info) Description 03/01/2024 Lab Requisition [facility] Pathology & Laboratory Medicine - [address] [phone] Outr Resulting Lab, Provider Social History Tobacco Use Types Packs/Day Years Used Date Smoking Tobacco: Never Assessed AUDIT-C Answer Date Recorded Q1: How often [...] place to sleep or slept in a fci (including now)? No 10/18/2022 Interpersonal Safety Answer Date Record ed How often does anyone, maico geraldine family, hit, punch or physically hurt you? Never 10/18/2022 How often does anyone, maico geraldine family, insult, scream, curse or threaten to hurt you? Never 10/18/2022 Comments No Sex and Gender Information Value Date Recorded Sex Assigned at Female 11/06/2024 15:56 EST Legal Sex Female 15:52 EDT Gender Identity Female 11/12/2019 14:09 EST Sexual Orientation Not on file documented as of this encounter Functional Status * Are you [...] Wilson ace, RN documented in this encounter Plan of Treatment Upcoming Encounters Date Type Department Care Team (Late st Contact Info) Description 12/11/2024 9:25 EST Hospital Encounter [facility] [place] [address] [place] [address] [phone] Celeste Cooper MD [address] [place] [address] [phone] 12/11/2024 9:25 EST - 12/11/2024 11:40 EST Surgery [facility] OR [address] [place] [address] [id number] Celeste Cooper MD [address] [place] [address] [phone] Laparoscopic left ovarian cystectomy [20088 (CPT??)] 12/31/2024 16:15 EST Post-op Visit [facility] OBGYN Services [address] [id number] Jessika Upton MD [address] [place] [address] [phone] 02/06/2025 13:10 EDT Appointment [facility] OBGYN Services [address] [phone] 03/05/2025 8:40 EDT Office Visit [facility] Rheumatology & Immunology [address] [address] Nikolay Elizabeth MD MPH [address] [facility], [address] [place] [address] Scheduled Procedures Name Priority Associated Diagnoses Date/Ti me LAPAROSCOPY, WITH EXCISION O R FULGURATION OF LESIONS OF OVARY, PELVIC VISCERA, OR PERITONEAL SURFACE Cyst of left ovary 12/11/2024 9:25 EST documented as of this encounter Procedures Procedure Name Priority Date/Time Associated Diagnosis Comments RHEUMATOID FACTOR Routine 02/29/2024 15: 30 EDT ANTI NUCLEAR AB (SOCORRO), IFA Routine 02/29/2024 15:30 EDT documented in this encounter Results * RHEUMATOID FACTOR (02/29/2024 15:30 EDT) Rheumatoid Factor <8.6 <12.0 IU/mL 03/01/2024 17:25 EDT [facility] Blood VENOUS BLOOD / Unknown 02/29/2024 15:30 EDT 03/01/2024 17:05 EDT us Provider Outr Resulting Lab CHEMISTRY & BLOOD GA S ORDERABLES Final Result [facility] [address], [place] [phone] * (ABNORMAL) ANTI NUCLEAR AB (SOCORRO), IFA (02/29/2024 15:30 EDT) SOCORRO Interpretation Positive(A) Negative 03/03/2024 14:29 EDT [facility] Comment: For titers greater than or equal to 1:160 (except the centromere and nucleolar patterns) it is recommended that specific follow-up autoantibody testing ??(such as for dsDNA and Extractable Nuclear Antigens) be performed on all diffuse and/or speckled patterns NOTE: For add-on testing dsDNA is stable for 7 days refrigerated while Extractable Nuclear Antigens are only stable for 48 hours refrigerated. SOCORRO Titer and Pattern 1 1:320 Dense Fine Speckled 03/03/2024 14:29 EDT [facility] Blood VENOUS BLOOD / Unknown 02/29/2024 15:30 EDT 03/01/2024 17:05 EDT Narrative [facility] - 03/03/2024 14:29 EDT Results were obtained with the INOVA NOVA Lite HEp-2 SOCORRO Kit by indirect immunofluorescence. us Provider Outr Resulting Lab IMMUNOLOGY AND SEROL OGY ORDERABLES Final Result [facility] [address], [place] [phone] documented in this encounter Visit Diagnoses Not on filedocumented in this encounter Care Teams Sports Medicine Specialist Relationship Specialty Start Date End Date Liz Aguilar DO [address] [facility] [address] [place] [address] PCP - General Family Medicine - Primary Care 11/27/22 03/26/24 Kalyani Douglas MD [address] [place] [phone] PCP - General Family Medicine - Primary Care 03/27/24 Liz Aguilar DO [address] [facility] [address] [place] [address] Family Medicine - Primary Care 03/27/24 documented as of this encounter
--- OUTSIDE RECORDS SUMMARY | 2024-12-08 15:29 | XMS_ITS | Encounter Summary ---
Author Organization [facility] Address [address] [place] [address] Care Team Providers Care Rheumatologist Name Role Phone Liz Aguilar Primary Care Provider [phone] Encounter Details Date Type Department Care Team (Latest Contact Info) Description 12/23/2022 Travel Social History Tobacco Use Types Packs/Day Years [...] place to sleep or slept in a [place] (including now)? No 10/18/2022 Interpersonal Safety Answer Date Record ed How often does anyone, maico chandler family, hit, punch or physically hurt you? Never 10/18/2022 How often does anyone, josephsteve chandler family, insult, scream, curse or threaten to hurt you? Never 10/18/2022 Comments No Sex and Gender Information Value Date Recorded Sex Assigned at Female 11/06/2024 15:56 EST Legal Sex Female 15:52 EDT Gender Identity Female 11/12/2019 14:09 EST Sexual Orientation Not on file COVID-19 Exposure Response Date Recorded In the last 10 days, have yo u been in contact with someone who was confirmed or suspected to have Coronavirus/COVID-19? No / Unsure 12/23/2022 0:53 EST documented as of this encounter Functional Status * Are you deaf or do you have serious difficulty hearing? Answer Date of Assessment Author No 01/30/2020 23:20 Andrea Wilson ace, RN * Are you blind or do you have serious difficulty seeing, even when wearing glasses? Answer Date of Assessment Author No 01/30/2020 23:20 Andrea Wilson ace RN * Do you have serious difficulty walking or climbing stairs? (5 years old or older) Answer Date of Assessment Author No 01/30/2020 23:20 Andrea Wilson ace, RN * Do you have difficulty dressing or bathing? (5 years old or older) Answer Date of Assessment Author No 01/30/2020 23:20 Andrea Wilson ace RN * Because of a physical, mental, or emotional condition, do you have difficulty doing errands alone such as visiting a doctor's office or shopping? (15 years old or older) Answer Date of Assessment Author No 01/30/2020 23:20 Andrea Wislon ace, RN documented as of this encounter [...] Info) Description 12/11/2024 9:25 EST Hospital Encounter [facility] OR [address] [place] [address] [phone] Celeste Cooper MD [address] [place] [address] [phone] 12/11/2024 9:25 EST - 12/11/2024 11:40 EST Surgery [facility] [place] [address] [place] [address] [phone] Celeste Cooper MD [address] [place] [phone] Laparoscopic left ovarian cystectomy [70260 (CPT??)] 12/31/2024 16:15 EST Post-op Visit [facility] OBGYN Services [address] [phone] Jessika Upton MD [address] [place] [address] [phone] 02/06/2025 13:10 EDT Appointment [facility] [address] [phone] 03/05/2025 8:40 EDT Office Visit [facility] Rheumatology & Immunology - [address] [phone] Nikolay Elizabeth MD MPH [address] [facility], [address] [place] [phone] Scheduled Procedures Name Priority Associated Diagnoses Date/Ti me LAPAROSCOPY, WITH EXCISION O R FULGURATION OF LESIONS OF OVARY, PELVIC VISCERA, OR PERITONEAL SURFACE Cyst of left ovary 12/11/2024 9:25 EST documented as of this encounter Visit Diagnoses Not on filedocumented in this encounter Additional Health Concerns Infection Onset Date Last Indicated Resolved Time R/O COVID-19 12/23/2022 12/23/2022 12/23/2022 1:42 EST documented as of this encounter Care Teams Rheumatologist Relationship Specialty Start Date End Date Liz Aguilar DO [address] [facility] [address] [place] [address] PCP - General Family Medicine - Primary Care 11/27/22 03/26/24 documented as of this encounter
--- OUTSIDE RECORDS SUMMARY | 2024-12-08 15:29 | XMS_ITS | Referral Summary ---
Author Organization [facility] Address [address] [place] [address] Care Team Providers Care Trucking Manager Name Role Phone Kalyani Douglas MD Primary Care Provider [phone] Liz Aguilar DO Unavailable [phone] Encounters Date Type Department Care Team Description 12/04/2024 8:40 EST Office Visit [facility] - [address] [phone] Nikolay Elizabeth MD MPH Inflammatory arthritis (Primary Dx); Raynaud's disease without gangrene; SOCORRO positive 12/03/2024 Telephone [facility] [address] [phone] Celeste Cooper MD Abdominal Pain 12/02/2024 10:30 EST - 12/02/2024 16:35 EST Hospital Encounter [facility] Pre-Surgical Testing [address] [place] [address] [phone] 11/22/2024 10:30 EST Office Visit [facility] - [address] [phone] Zina Puente MD Cyst of left ovary (Primary Dx) 11/11/2024 19:32 EST - 11/11/2024 22:16 EST Emergency [facility] Emergency Department - [address] [phone] Livier Banerjee MD Left lower quadrant pain (Primary Dx); Left ovarian cyst Discharge Disposition: Home or Self Care 11/06/2024 16:00 EST Phlebotomy Only [facility] 2 Phlebotomy [address] [place] [address] Data Management Consultant, Acc Phlebotomy Positive SOCORRO (antinuclear antibody); Raynaud's disease without gangrene; Arthralgia of both hands; Chronic pain of both knees 11/06/2024 15:00 EST Office Visit [facility] - [facility] [address] [place] [address] Nikolay Elizabeth MD [facility] Positive SOCORRO (antinuclear antibody) (Primary Dx); Raynaud's disease without gangrene; Arthralgia of both hands; Chronic pain of both knees 10/09/2024 15:45 EST Initial consult [facility] [address] [address] Farrah Shoemaker MD Cyst of left ovary (Primary Dx) 10/09/2024 14:34 EST - 10/09/2024 23:59 EST Hospital Encounter [address] [phone] Pelvic and perineal pain Discharge Disposition: Home or Self Care from Last 3 Months Allergies Active Allergy Reactions Criticality Noted Date Comments Procaine Nausea And Vomiting Medium 11/02/2017 Other - See Comments 12/02/2024 seasonal Medications ibuprofen (MOTRIN) 400 mg tablet Take 1 Tab by mouth every 4 hours as needed for Pain. 020 Active fexofenadine (MARTHA) 60 mg tablet Take 1 Tablet by mouth as needed. Active LORazepam (ATIVAN) 0.5 mg tablet Take 1 Tab by mouth at bedtime as needed for Anxiety. Daily Max: 0.5 mg 15 Tab 1 020 Active ondansetron (ZOFRAN-ODT) 4 mg disintegrating tabletIndications :Nausea TAKE 1 TABLET BY MOUTH EVERY 8 HOURS NEEDED FOR NAUSEA 12 Tablet 3 022 Active lisdexamfetamine (VYVANSE) 30 mg capsuleIndication s:Attention deficit hyperactivity disorder (ADHD), predominantly inattentive type Take 1 capsule by mouth every morning. Daily Max: 30 mg 28 capsule 022 Active Additional Information Patient taking differently: 40 mgoral EVERY MORNING, Reported on 12/04/2024 spironolactone (ALDACTONE) 50 mg tablet Take 1 Tablet by mouth every morning. 022 Active metFORMIN (GLUCOPHAGE) 500 mg tablet Take [...] episode of recurren t major depressive disorder ([facility]) 11/05/2020 Anxiety Resolved Problems Problem Noted Date Diagnosed Date Resolved Date Sterilization consult 06/10/20202019 Assessment & Plan (06/10/2020 11:49 EDT): 25yo P1 who presents for consultation regarding permanent sterilization - Reviewed [facility] and Medicaid consent forms, in particular discussed increased risks of regret given her age. We reviewed alternative forms of control, male vasectomy and the irreversible and permanent nature of the procedure. She wished to proceed and signed both the tubal forms and the surgical consent forms. - Will send to auto technician mechanic to arrange, tentative date 07/15 for laparoscopic bilateral salpingectomy. - All questions answered 01/31/2020 11/05/2020 Rubella non-immune status, antepartum 11/18/2019 11/05/2020 Overview (11/18/2019): Give pp Supervision of other normal 07/03/2019 11/05/2020 Overview (01/20/2020): CNRoberto ACC Partner's name: [ French ] Hx [...] Clinical Group: FRANCISCO/ (eg. COGS, ED patient, FRANCISCO, SAIMA, KIRILL) HPI: Ulises Duffy is an 24 y.o. , during [...] mIU/ml* (Ref range: <5 mIU/ml) 05/29 @ [facility]: 110 05/31/19 @ [facility] mIU/mL Plan: Per Dr. Cooper repeat beta 05/29 (@[facility]). Results, plan, precautions reviewed with pt. MYA CARTER 05/30/2019 Discussed with patient, recommended repeat blood draw on Monday, 05/31, will decide repeat US based on result, symptoms. Order placed. Patient prefers to go to [facility]. ADL 05/31/19: appropriately rising HCG, currently asymptomatic. Plan per Dr. Banerjee: strict ectopic precautions u/s in 2 weeks (~06/14). Results, plan & precautions discussed with [place]. MYA Mosher 06/03/19: TVUS scheduled for 06/12 @ 1120. [facility] for [place] with appt date/time. MYA Mosher 06/12/19. Per Dr. Banerjee, may discontinue beta HCG surveillance (ie take off beta book). [facility]SC Abnormal Pap smear of cervix 11/05/2020 Overview (09/03/2019): ASCUS neg HPV 07/2017 Repeat pap 08/28/19 NILM no t-zone HPV neg Immunizations Name Administration Dates Next Due Covid-19 [...] Td 10/26/2011,10/26/2010 Tdap Vaccine =>7YO IM 12/02/2019 Social History Tobacco Use Types Packs/Day Years [...] you? Never 10/18/2022 How often does anyone, inclsteve chandler family, insult, scream, curse or threaten to hurt you? Never 10/18/2022 Comments No Sex and Gender Information Value Date Recorded Sex Assigned at Female 11/06/2024 15:56 EST Legal Sex Female 15:52 EDT Gender Identity Female 11/12/2019 14:09 EST Sexual Orientation Not on file Last Filed Vital Signs Vital Sign Reading [...] Body Mass Index 21.95 12/02/2024 1616 EST Functional Status * Are you deaf or [...] Yes 11/06/2024 14:51 Andrea Wilson ace, RN Mental Status * Because of a physical, mental, or emotional condition, does this person have serious difficulty concentrating, remembering, or making decisions? Answer Entry Date Author Yes 11/06/2024 14:51 Andrea Wilson ace, RN Plan of Treatment Upcoming Encounters Date Type Department Care Team (Late st Contact Info) Description 12/11/2024 9:25 EST Hospital Encounter [facility] OR [address] [place] [address] [phone] Celeste Cooper MD [address] [place] [address] [address] [place] [phone] 12/11/2024 9:25 EST - 12/11/2024 11:40 EST Surgery [facility] OR [address] [place] [address] [phone] Celeste Cooper MD [address] [place] [address] 4 [place] [phone] Laparoscopic left ovarian cystectomy [57723 (CPT??)] 12/31/2024 16:15 EST Post-op Visit [facility] [address] [phone] Jessika Upton MD [address] [place] [phone] 02/06/2025 13:10 EDT Appointment [facility] [address] [phone] 03/05/2025 8:40 EDT Office Visit [facility] - [address] [phone] Nikolay Elizabeth MD MPH [address] [place] [address] [address] [place] [phone] Scheduled Procedures Name Priority Associated Diagnoses Date/Ti me LAPAROSCOPY, WITH EXCISION O R FULGURATION OF LESIONS OF OVARY, PELVIC VISCERA, OR PERITONEAL SURFACE Cyst of left ovary 12/11/2024 9:25 EST Procedures Procedure Name Priority Date/Time Associated Diagnosis [...] both hands Chronic pain of both knees CERTIFIED PROSTHETIST/ORTHOTIST ANTIBODY, IGG Routine 11/06/2024 16: 17 EST [...] multigravida in first trimester GC/CHLAMYDIA PCR - [facility] Routine 10/09/2018 10:19 EST HPV DNA DETECTION [...] with worsening left adenexal pain sent by [employer] Findings: LMP: Unknown Uterus: The anteverted uterus [...] above interpretation and agree with the findings. [id number] Narrative 11/12/2024 8:51 EST US PELVIS TRANSABDOMINAL AND TRANSVAGINAL COMPLETE WITH LIMITED DUPLEX ??11/11/2024 6:36 PM SIGNS AND SYMPTOMS/COMMENTS: known left ovarian csyst suspect cystadenoma plan for OR in Nov here with worsening left adenexal pain sent by [employer] COMPARISON: Pelvic outside department ultrasound 10/09/2024. 10/05/2021.. DUPLEX: Indication for Duplex: Concern for ovarian torsion and/or mass Technique: Color and spectral Doppler ultrasound of the pelvis was performed. Resulting Agency Comment [id number] Procedure Note Franki Paz MD - 11/12/2024 US PELVIS TRANSABDOMINAL AND TRANSVAGINAL COMPLETE WITH LIMITED [id number]/11/2024 6:36 PM SIGNS AND SYMPTOMS/COMMENTS: known left ovarian csyst suspect cystadenomaplan for OR in Nov here with worsening left adenexal pain sent by [employer] COMPARISON: Pelvic outside department ultrasound 10/09/2024. 10/05/2021.. [...] with worsening left adenexal pain sent by [employer] Findings: LMP: Unknown Uterus: The anteverted uterus [...] the above interpretation andagree with the findings. [id number] us Lee Humphries MD [facility] US OB ORDERABLES Юлия l Result * POCT TEST, CLINITE[facility] (11/11/2024 18:26 EST) UPT Result Negative Negative 11/11/2024 18:32 EST [facility] HN LAB COMMENT ([facility]IN[facility], UPT) Test performed at Emergency Department 11/11/2024 18:32 EST [facility] Comment:False negative resul ts may occur in women who are beyond 5-8 weeks gestation. Diagnosis of should be based on a correlation of test results with typical clinical signs and symptoms. Urine URINE SPECIMEN OBTAINED BY CLEAN CATCH PROCEDURE / Unknown 11/11/2024 18:26 EST 11/11/2024 18:32 EST us Lee Humphries MD, RDAZ POINT OF CARE TEST ORDERA BLES Final Result Performing Organization Address [facility]/ZIP Co de Phone Number [facility] [address] [place] [address] * POCT CSN BARCODE URINE PREG TEST (11/11/2024 18:25 EST) Urine URINE SPECIMEN OBTAINED BY CLEAN CATCH PROCEDURE / Unknown Urine Collect / Unknown 11/11/2024 18:25 EST 11/11/2024 18:25 EST us Lee Humphries MD [facility] LAB INFO SERVICE AND SUPP ORT & PHONE RESULT Final Result Performing Organization Address [facility] de Phone Number [facility] [address] [place] [address] * UA SEDIMENT + REFLEX TO CULTURE (11/11/2024 18:24 EST) Urine RBC Count, Auto 0 - 2 0 - 2 Cells/HPF 11/11/2024 18:45 EST [facility] Urine WBC Count, Auto 0 - 3 0 - 3 Cells/HPF 11/11/2024 18:45 EST [facility] Urine Squamous Count, Auto None Seen None Seen Cells/HPF 11/11/2024 18:45 EST [facility] Urine Hyaline Cast Count, Auto <=10 <=10 Casts/LPF 11/11/2024 18:45 EST [facility] Urine Bacteria Count, Auto None Seen None Seen Bacteria/H PF 11/11/2024 18:45 EST [facility] Urine URINE SPECIMEN OBTAINED BY CLEAN CATCH PROCEDURE / Unknown Urine Collect / Unknown 11/11/2024 18:24 EST 11/11/2024 18:32 EST Narrative [facility] - 11/11/2024 18:45 EST NOTE: Reflex to Urine Culture test is not indicated based on Urine Sediment Analysis results. Urine Sediment Analysis results are unreliable on urines that are unrefrigerated for >2 hrs or refrigerated >8 hrs. Lee Humphries MD [facility] URINALYSIS ORDERABLES Fin al Result Performing Organization Address City/[facility]/ZIP Co de Phone Number [facility] [address] [place], [place] [id number] * RO60 ANTIBODY, IGG (11/06/2024 16:17 EST) Ro60 Antibody, IgG <7.0 <20.0 CU 2023 10:02 EST [facility] Comment:Results were obtaine d with the [employer] QUANTA Flash Ro60 chemiluminescent immunoassay. Values obtained with different manufacturers' assay methods must not be used interchangeably. Blood VENOUS BLOOD / Unknown Venipuncture / Unknown 11/06/2024 16:17 EST 11/06/2024 17:10 EST us Nikolay Elizabeth MD MPH IMMUNOLOGY AND SEROLOGY ORD ERABLES Final Result Performing Organization Address [facility] Co de Phone Number [facility] [address] [place] [address] * RO52 ANTIBODY, IGG (11/06/2024 16:17 EST) Ro52 Anitbody, IgG <2.3 <20.0 CU 2023 10:02 EST [facility] Comment:Results were obtaine d with the [employer] Coating QUANTA Flash Ro52 chemiluminescent immunoassay. Values obtained with different manufacturers' assay methods must not be used interchangeably. Blood VENOUS BLOOD / Unknown Venipuncture / Unknown 11/06/2024 16:17 EST 11/06/2024 17:10 EST Result [facility] us Nikolay Elizabeth MD MPH IMMUNOLOGY AND SEROLOGY ORD ERABLES Final Result Performing Organization Address [facility] Co de Phone Number [facility] [address] [place] [address] * SS-B ([place]) ANTIBODY, IGG (11/06/2024 16:17 EST) SSB Antibody, IgG <3.3 <20.0 CU 024 10:02 EST [facility] Comment:Results were obtaine d with the VivaSmartA Flash SS-B chemiluminescent immunoassay. Values obtained with different manufacturers' assay methods must not be used interchangeably. Blood VENOUS BLOOD / Unknown Venipuncture / Unknown 11/06/2024 16:17 EST 11/06/2024 17:10 EST Nikolay Elizabeth MD MPH IMMUNOLOGY AND SEROLOGY ORD ERABLES Final Result Performing Organization Address City/[facility] Co de Phone Number [facility] [address] [place] [address] * SM ([place]) ANTIBODY, IGG (11/06/2024 16:17 EST) SM ([place]) Antibody, IgG <8.0 <20.0 CU 11/07/2024 10:02 EST [facility] Comment:Results were obtaine d with the [employer]ating QUANTA Flash Sm chemiluminescent immunoassay. Values obtained with different manufacturers' assay methods must not be used interchangeably. Blood VENOUS BLOOD / Unknown Venipuncture / Unknown 11/06/2024 16:17 EST 11/06/2024 17:10 EST Nikolay Elizabeth MD MPH IMMUNOLOGY AND SEROLOGY ORD ERABLES Final Result Performing Organization Address City/[facility]/ZIP Co de Phone Number [facility] [address] [place] [address] * CCP ANTIBODIES (11/06/2024 16:17 EST) CCP Antibodies <2.5 <5.0 U/mL 11/07/2024 10:17 EST [facility] Blood VENOUS BLOOD / Unknown Venipuncture / Unknown 11/06/2024 16:17 EST 11/06/2024 17:10 EST Nikolay Elizabeth MD MPH IMMUNOLOGY AND SEROLOGY ORD ERABLES Final Result Performing Organization Address City/[facility]/ZIP Co de Phone Number [facility] [address] [place] [address] * CERTIFIED PROSTHETIST/ORTHOTIST ANTIBODY, IGG (11/06/2024 16:17 EST) Pathologist [facility] CERTIFIED PROSTHETIST/ORTHOTIST Antibody, IgG <6.0 <20.0 CU 024 10:02 EST [facility] Comment:Results were obtaine d with the VivaSmartA Flash CERTIFIED PROSTHETIST/ORTHOTIST chemilumenscent immunoassay. Values obtained with different manufacturers' assay methods may not be used interchangeably. Blood VENOUS BLOOD / Unknown Venipuncture / Unknown 11/06/2024 16:17 EST 11/06/2024 17:10 EST Nikolay Elizabeth MD MPH IMMUNOLOGY AND SEROLOGY ORD ERABLES Final Result Performing Organization Address [facility] Co de Phone Number [facility] [address] [place] [address] * SCL 70 ANTIBODY, IGG, SERUM (11/06/2024 16:17 EST) [facility] Scl 70 Ab, IgG, S <0.2 <1.0 (Negative ) U 11/08/2024 9:53 EST [facility] Comment: Test Performed by: [facility] [address] [address] Silviculturist: Sadie Hendricks Ph.D.; CLIA# [id number] Blood VENOUS BLOOD / Unknown Venipuncture / Unknown 11/06/2024 16:17 EST 11/06/2024 17:04 EST us Nikolay Elizabeth MD MPH IMMUNOLOGY AND SEROLOGY ORD ERABLES Final Result [facility] [address] [place] [address] * DOUBLE STRANDED DNA ANTIBODY, IGG (11/06/2024 16:17 EST) Pathologist [facility] dsDNA Ab, IgG <22.0 <27.0 IU/mL 11/07/2024 10:02 [facility] Comment: Negative: <27.0 IU/mL Indeterminate: 27.0 - 35.0 IU/mL Positive: >35.0 IU/mL Results were obtained with VivaSmartA Flash dsDNA chemiluminescent immunoassay. Values obtained with different manufacturers' assay methods may not be used interchangeably. Blood VENOUS BLOOD / Unknown Venipuncture / Unknown 11/06/2024 16:17 EST 11/06/2024 17:10 EST us Nikolay Elizabeth MD MPH IMMUNOLOGY AND SEROLOGY ORD ERABLES Final Result [facility] [address] [place] [address] * (ABNORMAL) UA CHEMICAL & SEDIMENT (11/06/2024 16:17 EST) Color UA Yellow Colorless, Yellow 11/06/2024 17:04 [facility] Clarity UA Clear Clear 11/06/2024 17:04 [facility] Glucose UA Negative Negative 11/06/2024 17:04 [facility] Bilirubin UA Negative Negative 11/06/2024 17:04 [facility] Ketones UA Negative Negative 11/06/2024 17:04 [facility] [employer], Urine 1.019 1.001 - 1.030 11/06/2024 17:04 [facility] Blood UA Negative Negative 11/06/2024 17:04 [facility] Urobilinogen UA 1.0 0.2-1.0 mg/dL mg/dL 11/06/2024 17:04 [facility] Nitrite UA Negative Negative 11/06/2024 17:04 [facility] Leukocyte Esterase UA Trace(A) Negative 11/06/2024 17:04 [facility] Protein UA Negative Negative 11/06/2024 17:04 [facility] pH, UA 7.0 5.0 - 8.0 11/06/2024 17:04 [facility] Urine RBC Count, Auto 0 - 2 0 - 2 Cells/HPF 11/06/2024 17:04 [facility] Urine WBC Count, Auto 4 - 9(A) 0 - 3 Cells/HPF 11/06/2024 17:04 [facility] Urine Squamous Count, Auto Few(A) None Seen Cells/HPF 11/06/2024 17:04 [facility] Urine Hyaline Cast Count, Auto <=10 <=10 Casts/LPF 11/06/2024 17:04 [facility] Urine Bacteria Count, Auto Moderate(A) None Seen Bacteria/HP F 11/06/2024 17:04 [facility] Urine URINE SPECIMEN OBTAINED BY CLEAN CATCH PROCEDURE / Unknown Urine Collect / Unknown 11/06/2024 16:17 EST 11/06/2024 16:58 [facility]ORATORY SERVICES - 11/06/2024 17:04 [facility] Urine Sediment Analysis results are unreliable on urines that are unrefrigerated for >2 hrs or refrigerated >8 hrs. us Nikolay Elizabeth MD MPH URINALYSIS ORDERABLES Final Result Performing Organization Address City/State/[facility] Co de Phone Number [facility] [address] [place] [address] * COMPLETE BLOOD COUNT AND DIFFERENTIAL (11/06/2024 16:17 [facility]) WBC 6.08 4.00 - 12.40 K/cmm 11/06/2024 17:25 [facility] RBC 4.63 3.86 - 5.04 M/cmm 11/06/2024 17:25 [facility] Hemoglobin 13.1 11.6 - 15.2 g/dL 11/06/2024 17:25 [facility] HCT 37.9 34.9 - 44.4 % 11/06/2024 17:25 [facility] MCV 82 81 - 98 fL 11/06/2024 17:25 [facility] MCH 28.3 26.7 - 33.3 pg 11/06/2024 17:25 [facility] MCHC 34.6 32.1 - 35.9 g/dL 11/06/2024 17:25 [facility] RDW-CV 11.9 <14.7 % 11/06/2024 17:25 [facility] RDW-SD 35.3 <50.4 fl 11/06/2024 17:25 [facility] PLT 267 141 - 377 K/cmm 11/06/2024 17:25 [facility] MPV 10.0 9.5 - 12.7 fL 11/06/2024 17:25 [facility] % Neutrophils 51.2 Not Indicated % 11/06/2024 17:25 [facility] % Lymphocytes 40.0 Not Indicated % 11/06/2024 17:25 [facility] % Monocytes 7.1 Not Indicated % 11/06/2024 17:25 [facility] % Eosinophils 0.7 Not Indicated % 11/06/2024 17:25 [facility] % Basophils 0.7 Not Indicated % 11/06/2024 17:25 [facility] % Immature Grans 0.3 Not Indicated % 11/06/2024 17:25 [facility] Absolute Neutrophils 3.12 2.20 - 8.85 K/cmm 11/06/2024 17:25 [facility] Absolute Lymphocytes 2.43 1.09 - 3.30 K/cmm 11/06/2024 17:25 [facility] Absolute Monocytes 0.43 0.10 - 0.80 K/cmm 11/06/2024 17:25 [facility] Absolute Eosinophils 0.04 0.03 - 0.61 K/cmm 11/06/2024 17:25 [facility] ABS Basophils 0.04 0.01 - 0.11 K/cmm 11/06/2024 17:25 [facility] Absolute Immature Grans 0.02 0.00 - 0.06 K/cmm 11/06/2024 17:25 [facility] Type of Differential: Auto 11/06/2024 17:25 EST [facility] Blood VENOUS BLOOD / Unknown Venipuncture / Unknown 11/06/2024 16:17 EST 11/06/2024 17:10 EST us Nikolay Elizabeth MD MPH PACKAGES & DNA PROBE ORDERA BLES Final Result Performing Organization Address City/[facility]/ZIP Co de Phone Number [facility] [address] [place] [address] * C3 COMPLEMENT (11/06/2024 16:17 EST) C3 Complement 87 81 - 157 mg/dL 11/07/2024 11:04 EST [facility] Blood VENOUS BLOOD / Unknown Venipuncture / Unknown 11/06/2024 16:17 EST 11/06/2024 17:10 EST us Nikolay Elizabeth MD MPH CHEMISTRY & BLOOD GAS ORDER JAD Final Result Performing Organization Address [facility] Co de Phone Number [facility] [address] [place] [address] * C4 COMPLEMENT (11/06/2024 16:17 EST) C4 Complement 39 13 - 39 mg/dL 11/07/2024 11:04 EST [facility] Blood VENOUS BLOOD / Unknown Venipuncture / Unknown 11/06/2024 16:17 EST 11/06/2024 17:10 EST us Nikolay Elizabeth MD MPH CHEMISTRY & BLOOD GAS ORDER JAD Final Result Performing Organization Address City/[facility]/ZIP Co de Phone Number [facility] [address] [place] [address] * COMPREHENSIVE METABOLIC PANEL (CMP) (11/06/2024 16:17 EST) Sodium 140 136 - 145 mmol/L 11/06/2024 17:55 [facility] Potassium 3.9 3.5 - 5.0 mmol/L 11/06/2024 17:55 [facility] Chloride 105 96 - 110 mmol/L 11/06/2024 17:55 [facility] [facility] CO2 Total 22 22 - 32 mmol/L 11/06/2024 17:55 [facility] Glucose 89 70 - 99 mg/dl 11/06/2024 17:55 [facility] BUN 12 10 - 26 mg/dL 11/06/2024 17:55 [facility] Creatinine 0.66 0.52 - 1.04 mg/dL 11/06/2024 17:55 [facility] eGFR 122 >60 mL/min/1.7 3m2 11/06/2024 17:55 [facility] Total Protein 7.5 6.3 - 8.2 g/dL 11/06/2024 17:55 [facility] Albumin 4.8 3.4 - 4.9 g/dL 11/06/2024 17:55 [facility] Alkaline Phosphatase 48 38 - 126 U/L 11/06/2024 17:55 [facility] AST 17 15 - 46 U/L 11/06/2024 17:55 [facility] ALT 12 <35 U/L 11/06/2024 17:55 [facility] Bilirubin, Total <0.5 <1.4 mg/dL 11/06/20 17:55 [facility] Calcium 9.6 8.5 - 10.5 mg/dL 11/06/2024 17:55 [facility] Albumin/Globulin Ratio 1.8 1.0 - 2.5 11/06/2024 17:55 [facility] Anion Gap 13 5 - 14 mmol/L 11/06/2024 17:55 [facility] Blood VENOUS BLOOD / Unknown Venipuncture / Unknown 11/06/2024 16:17 EST 11/06/2024 17:10 EST Nikolay Elizabeth MD MPH CHEMISTRY & BLOOD GAS ORDER JAD Final Result [facility] [address] [place] [address] * US PELVIS TRANSVAGINAL COMPLETE (10/09/2024 14:48 [...] View: Good view Impression ========= Transvaginal Pelvic -[id number] The uterus is anteverted with a normal [...] View: Good view Impression ========= Transvaginal Pelvic -[id number] The uterus is anteverted with a normal [...] OF SERVICE: 10/09/2024 us Kalyani Douglas MD IMG US OB ORDERABLES Final Res ult * PAP TEST (08/01/2024 13:45 EDT) Specimens A. Cervix and/or Endocervix , ThinPrep Imaging System with Manual Evaluation 08/15/2024 11:52 EDT [facility] Specimen Adequacy Satisfactory for Evaluation - transformation zone component present 08/15/2024 11:52 EDT [facility] General Categorization Negative for intraepithelial lesion or malignancy 08/15/2024 11:52 T [facility] Attestation . 08/15/2024 11:52 [facility] at 1152 Clinical History SEE BELOW 08/15/20 24 11:52 EDT [facility] Performing Lab [facility] 08/15/2024 11:52 T [facility] Scanned Images 08/15/2024 11:52 T [facility] Pap Test CERVIX UTERI STRUCTURE / Unknown 08/01/2024 13:45 EDT 08/06/2024 14:27 EDT us Kalyani Douglas MD PATHOLOGY ORDERABLES Final Res ult [facility] [address] [place] [address] * HIV 1/2 ANTIGEN AND ANTIBODY, 4TH GENERATION (07/31/2019 12:41 EDT) HIV 1/2 Antibody Negative Negative 07/31/20 19 15:16 EDT [facility] Comment: Fourth generation assay performed on the Siemens Centaur. If acute HIV-1 infection is suspected in a high risk patient, submit plasma specimen for HIV-1 RNA quantification test. Blood specimen (specimen) BLOOD SPECIMEN / Unknown 07/31/2019 12:41 EDT 07/31/2019 12:51 EDT us Mariluz Hancock NEWS ASSISTANT CNM IMMUNOLOGY AND SE ROLOGY ORDERABLES Final Result [facility] [address] [place] [address] * GC/CHLAMYDIA PCR - [facility] (10/09/2018 10:19 EST) [facility] CHLAMYDIA PCR - [facility] NOT DETECTED 10/09/2018 17:[address] [facility] GONORRHEA PCR - [facility] NOT DETECTED 10/09/2018 17:[address] [facility] SOURCE CERVIX 10/09/2018 17:[address] [facility] 10/09/2018 10:1 9 EST 10/09/2018 14:47 EST us Maria Ines Crow MD CHEMISTRY & BLOOD GAS ORDERAB LES Final Result [facility] * HUMAN PAPILLOMAVIRUS (HPV) DETECTION-HIGH RISK TYPES (08/09/2017 14:01 EDT) [facility] HPV other High Risk types, PCR NEG 08/25/2017 15:[address] [facility] Comment: Negative for HPV types 16, 18, 31, 33, 35, 39, 45, 51, 52, 56, 58, 59, 66, 68. Method: Cervista HPV HR (High Risk) DNA test. 08/09/2017 14:0 1 EDT 08/22/2017 14:01 EDT us Gill Traore MD MICROBIOLOGY - GENERAL ORDER JAD Final Result [facility] from Last 3 Months or Most Recently Relevant to Health Maintenance [place] For more information, please contact: [phone] * Full Code (Latest Code Status on [...] the discussion? Not Discusse d Care Teams Trucking Manager Relationship Specialty Start Date End Date Kalyani Douglas MD [address] [place] [address] PCP - General Family Medicine - Primary Care 03/27/24 Liz Aguilar DO [address] [place] [address] [address] [place] [address] Family Medicine - Primary Care 03/27/24
--- OUTSIDE RECORDS SUMMARY | 2024-12-08 15:29 | XMS_ITS | Encounter Summary ---
Author Organization [facility] Address [address] [place] [address] Care Team Providers Care Torpedoman'S Mate Name Role Phone Kalyani Douglas MD Primary Care Provider [phone] WilliamMarce davismis Mikayla DO Unavailable [phone] Reason for Visit * Reason Comments Pre-procedure Encounter Details Date Type Department Care Team (Late st Contact Info) Description 11/22/2024 10:30 EST Office Visit [facility] - [facility] [address] [place], [place] [address] Zina Puente MD [address] [place], [place] [address] Cyst of left ovary (Primary Dx) Social History Tobacco Use Types Packs/Day Years Used Date Smoking Tobacco: Never Passive Smoke Exposure: Never Smokeless Tobacco: Never Tobacco Cessation:Counseling Given: Not Answered Alcohol Use Standard Drinks/Week Comments No 0 [...] Sign Reading Time Taken Comments Blood Pressure 110/70 11/22/2024 1109 EST Pulse - - Temperature - - Respiratory Rate - - Oxygen Saturation - - Inhaled Oxygen Concentration - - Weight - - Height - - Body Mass Index - - documented in this encounter Functional Status * Are you deaf or do you have serious difficulty hearing? Answer Date of Assessment Author No 01/30/2020 23:20 EST Andrea Menjivar ace, RN * Are you blind or [...] documented in this encounter Progress Notes * Zina Puente MD - 11/22/2024 1030 EST [facility] New Patient Visit Note CC: Ovarian cyst, pelvic pain S: Ulises Skelton is a 29 y.o. with known left ovarian cysts with intermittent pains presenting to re-critical access hospital care and for pre-op visit for cystectomy. She presented to the ED on 11/11/24 for acute on chronic LLQ pain. Vital signs stable, TVUS that day showed stable 4.7 cm unilocular cystic lesion with small echogenic mural nodules in left adnexa and right corpus luteum, flow demonstrated on left. She was discharged with PO toradol. Prior to that she was seen on 10/09/[address] Shoemaker for her pelvic pain. See separate detailed HPI. She was previously last seen by [facility] [employer] for follow up of AUB and dyspareunia. She reports ongoing fluctuating pain located in her LLQ, up to 6/10. She takes PO toradol for this intermittently. She also has a dull pain wrapping around her back and nausea. She reports increase in her anxiety since the cyst increased in size from 3 to 5 cm and she takes lorazepam for this prn. She also has occasional dysuria that feels like muscle pain in her bladder, constipation and diarrhea worse around her periods, and deep dyspareunia. On review of her history with contraception, she reports on one pill, had black out episodes when walking or in shower. Both types of IUDs caused bleeding/cramping. Had constant spotting with nexplanon. [employer] Hx - Currently using vasectomy for contraception - LMP around 11/17 - Length: 5 days - Menarche 11/08 - Denies hx of STI - Last pap 08/01/24 NILM neg HPV - Has had abnormal paps and believes colposcopy in the past - Has PCOS on metformin + spironolactone - Tried mirena/copper IUD, nexplanon, POP, cOCP (unsure which brand) OB Hx: - Term - 2x IAB PMH Past Medical History: Diagnosis Date ADHD (attention deficit hyperactivity disorder) Anxiety Depression Dysmenorrhea Low vitamin D level PTSD (post-traumatic stress disorder) Rubella non-immune status, antepartum 11/18/2019 Give pp Sleep disorder Thyromegaly TMJ syndrome Vaginal delivery 01/2020 no anesthesia Vertigo Meds Current Outpatient Medications Medication fexofenadine (MARTHA) 60 mg tablet ibuprofen (MOTRIN) 400 mg tablet ketOROLAC (TORADOL) 10 mg tablet lisdexamfetamine (VYVANSE) 30 mg capsule LORazepam (ATIVAN) 0.5 mg tablet metFORMIN (GLUCOPHAGE) 500 mg tablet ondansetron (ZOFRAN-ODT) 4 mg disintegrating tablet spironolactone (ALDACTONE) 50 mg tablet VYVANSE 40 mg capsule No current facility-administered medications for this visit. Allergies: Allergies Allergen Reactions Novocain [Procaine] Nausea And Vomiting Surg Hx: Past Surgical History: Procedure Laterality Date DILATION AND CURETTAGE OF UTERUS WISDOM TOOTH EXTRACTION Family Hx: Maternal grandmother and great grandmother with ovarian and breast cancer. Denies hx of bleeding/clotting disorders, gynecologic malignancies. Social Hx : Lives in [facility] with and daughter. Works at [employer]. Rare alcohol use.4-5/week marijuana use. Denies tobacco or other drug use. O: BP 110/70 LMP 11/17/2024 (Approximate) Physical exam: General: Well-appearing, no acute distress HEENT: NCAT Resp: Nonlabored breathing on room air Abd: Soft, mildly tender throughout, worse in LLQ. Mild fullness in LLQ. No rebound/guarding. : deferred Pelvic US 11/11 Right ovary: The right ovary measures 4.6 x 2.2 x 3.3 cm in size, for an estimated right ovarian volume of 17.2 mL. Small 2 cm evolving corpus luteum. Left [...] not definitively related to cyst wall. . IMPRESSION: 1. No sonographic evidence of ovarian torsion. 2. No significant change in the unilocular and potentially physiologic left adnexal cyst. Follow-upultrasound as per prior report, if persists, an eventual pelvic MRI may be appropriate to better assess for intrinsic cyst complexity. 3. Right corpus luteum. Pelvic US 10/09/24 The uterus is anteverted with a normal myometrium and thin endometrium. The right ovary and adnexa are normal. The left ovary has a unilocular, anechoic ovarian cyst 4.8 cm with a mural irregularity suggestive of a serous cystadenoma. Differential dx includes a function cyst. Consider repeat US in 4-6 months. There is mild free fluid in the cul de sac A/P: Ulises Skelton is an 29 y.o. who presents for preop for left ovarian cystectomy with known simple appearing 4.8 cm stable left ovarian cyst on imaging and associated symptoms. # Ovarian cyst - Stable 4.8 cm left ovarian cyst, imaging suggestive of cystadenoma - s/p counseling regarding expectant management vs surgery. Surgery is reasonable considering significant pain, almost 5 cm dimensions, and lack of improvement. - Scheduled for C left ovarian cystectomy with Dr. Cooper on 12/11/23 - Does have family history of ovarian cancer in maternal grandmother and great grandmother, howeverdue to age and simple appearance of cyst on imaging, will defer tumor markers at this time - Discussed surgical approached, expected same-day discharge, and recovery # Dysmenorrhea - Has tried mirena/copper IUD, nexplanon, POP, cOCP (unsure which brand) - Reported improvement in symptoms after metformin and spironolactone - Discussed she may benefit from hormonal treatment for cyst suppression, though she has had adverse experiences with hormonal medications in past. As this appears to be one stable cyst and she has not had evidence of recurrent cysts, it is reasonable to continue to monitor off suppression at this time, which is what the patient desires. - If has recurrent cysts or patient desires, would use POPs for suppression due to adverse experiences with cOCPs. # BCM - using partner vasectomy Discussed with Dr. Melissa Puente MD 11/22/24 18:38 OBGYN PGY-2 Pager #[phone] * Elodia Torres MD - 11/22/2024 1030 EST Attestation statement: I discussed the patient with the resident at the time of the visit. I agree with the findings and the plan of care documented in the resident's note. Elodia Torres MD 11/25/2024 6:54 documented in this encounter Plan of Treatment Upcoming Encounters Date Type Department Care Team (Late st Contact Info) Description 12/11/2024 9:25 EST Hospital Encounter [facility] OR [address] [place] [address] [phone] Celeste Cooper MD [address] [place] [address] [phone] 12/11/2024 9:25 EST - 12/11/2024 11:40 EST Surgery [facility] OR [address] [place] [address] [phone] Celeste Cooper MD [address] [place] [address] [phone] Laparoscopic left ovarian cystectomy [00531 (CPT??)] 12/31/2024 16:15 EST Post-op Visit [facility] [address] [id number] Jessika Upton MD [address] [place] [address] [phone] 02/06/2025 13:10 EDT Appointment [facility] [address] [id number] 03/05/2025 8:40 EDT Office Visit [facility] Rheumatology & Immunology [address] [id number] Nikolay Elizabeth MD [facility] [address] [facility] [phone] Scheduled Procedures Name Priority Associated Diagnoses Date/Ti me LAPAROSCOPY, WITH EXCISION O R FULGURATION OF LESIONS OF OVARY, PELVIC VISCERA, OR PERITONEAL SURFACE Cyst of left ovary 12/11/2024 9:25 EST documented as of this encounter Visit Diagnoses Diagnosis Cyst of left ovary- Primary Other and unspecified ovarian cyst Cyst of left ovary Other and unspecified ovarian cyst documented in this encounter Care Teams Torpedoman'S Mate Relationship Specialty Start Date End Date Kalyani Douglas MD [address] [place] [address] PCP - General Family Medicine - Primary Care 03/27/24 Liz Aguilar DO [address] [facility] [address] [place] [address] Family Medicine - Primary Care 03/27/24 documented as of this encounter
--- OUTSIDE RECORDS SUMMARY | 2024-12-08 15:29 | XMS_ITS | Encounter Summary ---
Author Organization [facility] Address [address] [place] [address] Care Team Providers Care Table Inspector Name Role Phone Kalyani Douglas MD Primary Care Provider [phone] Liz Aguilar DO Unavailable [phone] Encounter Details Date Type Department Care Team (Late st Contact Info) Description 11/06/2024 16:00 EST Phlebotomy Only [facility] ED Center 2 Phlebotomy [address] [place], [place] [address] Adjuster Arbitrator, Acc Phlebotomy Positive SOCORRO (antinuclear antibody); Raynaud's disease without gangrene; Arthralgia of both hands; Chronic pain of both knees Social History Tobacco Use Types Packs/Day Years [...] place to sleep or slept in a jail (including now)? No 10/18/2022 Interpersonal Safety Answer Date Record ed How often does anyone, josephsteve geraldine family, hit, punch or physically hurt [...] Info) Description 12/11/2024 9:25 EST Hospital Encounter [facility] OR [address] [place] [address] [phone] Celeste Cooper MD [address] [place] [address] [phone] 12/11/2024 9:25 EST - 12/11/2024 11:40 EST Surgery [facility] OR [address] [place] [address] [phone] Celeste Cooper MD [address] [place] [address] [phone] Laparoscopic left ovarian cystectomy [41571 (CPT??)] 12/31/2024 16:15 EST Post-op Visit [facility] OBGYN Services [address] [phone] Jessika Upton MD [address] [place] [address] [phone] 02/06/2025 13:10 EDT Appointment [facility] OBGYN Services [address] [phone] 03/05/2025 8:40 EDT Office Visit [facility] Rheumatology & Immunology - [address] [phone] Nikolay Elizabeth MD MPH [address] [facility], Level [address] [place] [phone] Scheduled Procedures Name Priority Associated Diagnoses Date/Ti me LAPAROSCOPY, WITH EXCISION O R FULGURATION OF LESIONS OF OVARY, PELVIC VISCERA, OR PERITONEAL SURFACE Cyst of left ovary 12/11/2024 9:25 EST documented as of this encounter Procedures Procedure Name Priority Date/Time Associated Diagnosis Comments RO60 ANTIBODY, IGG Routine 11/06/2024 16 :17 [...] both hands Chronic pain of both knees SAMPLE CUTTER ANTIBODY, IGG Routine 11/06/2024 16: 17 EST [...] both hands Chronic pain of both knees URINE CHEMICAL (DIP) & SEDIMENT (MICRO) WITHOUT [...] both hands Chronic pain of both knees documented in this encounter Results * (ABNORMAL) UA CHEMICAL & SEDIMENT (11/06/2024 16:17 EST) Color UA Yellow Colorless, Yellow 11/06/2024 17:04 [facility] Clarity UA Clear Clear 11/06/2024 17:04 [facility] Glucose UA Negative Negative 11/06/2024 17:04 [facility] Bilirubin UA Negative Negative 11/06/2024 17:04 [facility] Ketones UA Negative Negative 11/06/2024 17:04 [facility] Specific [place], Urine 1.019 1.001 - 1.030 11/06/2024 17:04 [facility] Blood UA Negative Negative 11/06/2024 17:04 [facility] Urobilinogen UA 1.0 0.2-1.0 mg/dL mg/dL 11/06/2024 17:04 [facility] Nitrite UA Negative Negative 11/06/2024 17:04 [facility] Leukocyte Esterase UA Trace(A) Negative 11/06/2024 17:04 [facility] Protein UA Negative Negative 11/06/2024 17:04 [facility] pH, UA 7.0 5.0 - 8.0 11/06/2024 17:04 [facility] Urine RBC Count, Auto 0 - 2 0 - 2 Cells/HPF 11/06/2024 17:04 [facility] Urine WBC Count, Auto 4 - 9(A) 0 - 3 Cells/HPF 11/06/2024 17:04 [facility] Urine Squamous Count, Auto Few(A) None Seen Cells/HPF 11/06/2024 17:04 [facility] Urine Hyaline Cast Count, Auto <=10 <=10 Casts/LPF 11/06/2024 17:04 [facility] Urine Bacteria Count, Auto Moderate(A) None Seen Bacteria/HP F 11/06/2024 17:04 [facility] Urine URINE SPECIMEN OBTAINED BY CLEAN CATCH PROCEDURE / Unknown Urine Collect / Unknown 11/06/2024 16:17 EST 11/06/2024 16:58 [facility] LABORATORY [facility] - 11/06/2024 17:04 [facility] Urine Sediment Analysis results are unreliable on urines that are unrefrigerated for >2 hrs or refrigerated >8 hrs. us Nikolay Elizabeth MD MPH URINALYSIS ORDERABLES Final Result [facility] [address] [place] [address] * SS-B ([place]) ANTIBODY, IGG (11/06/2024 16:17 EST) SSB Antibody, IgG <3.3 <20.0 CU 024 10:02 EST [facility] Comment:Results were obtaine d with the NeptuneA Flash SS-B chemiluminescent immunoassay. Values obtained with different manufacturers' assay methods must not be used interchangeably. Blood VENOUS BLOOD / Unknown Venipuncture / Unknown 11/06/2024 16:17 EST 11/06/2024 17:10 EST us Nikolay Elizabeth MD MPH IMMUNOLOGY AND SEROLOGY ORD ERABLES Final Result Performing Organization Address [facility]/ZIP Co de Phone Number [facility] [address] [place] [address] * RO60 ANTIBODY, IGG (11/06/2024 16:17 EST) Ro60 Antibody, IgG <7.0 <20.0 CU 2023 10:02 EST [facility] Comment:Results were obtaine d with the NeptuneA Flash Ro60 chemiluminescent immunoassay. Values obtained with different manufacturers' assay methods must not be used interchangeably. Blood VENOUS BLOOD / Unknown Venipuncture / Unknown 11/06/2024 16:17 EST 11/06/2024 17:10 EST us Nikolay Elizabeth MD MPH IMMUNOLOGY AND SEROLOGY ORD ERABLES Final Result Performing Organization Address City/[facility]/ZIP Co de Phone Number [facility] [address] [place] [address] * RO52 ANTIBODY, IGG (11/06/2024 16:17 EST) Ro52 Anitbody, IgG <2.3 <20.0 CU 2023 10:02 EST [facility] Comment:Results were obtaine d with the [employer] QUANTA Flash Ro52 chemiluminescent immunoassay. Values obtained with different manufacturers' assay methods must not be used interchangeably. Blood VENOUS BLOOD / Unknown Venipuncture / Unknown 11/06/2024 16:17 EST 11/06/2024 17:10 EST us Nikolay Elizabeth MD MPH IMMUNOLOGY AND SEROLOGY ORD ERABLES Final Result Performing Organization Address [facility] Co de Phone Number [facility] [address] [place] [address] * SM ([place]) ANTIBODY, IGG (11/06/2024 16:17 EST) SM ([place]) Antibody, IgG <8.0 <20.0 CU 11/07/2024 10:02 EST [facility] Comment:Results were obtaine d with the [employer] QUANTA Flash Sm chemiluminescent immunoassay. Values obtained with different manufacturers' assay methods must not be used interchangeably. Blood VENOUS BLOOD / Unknown Venipuncture / Unknown 11/06/2024 16:17 EST 11/06/2024 17:10 EST Result [facility] Nikolay Elizabeth MD MPH IMMUNOLOGY AND SEROLOGY ORD ERABLES Final Result Performing Organization Address [facility] Co de Phone Number [facility] [address] [place] [address] * SCL 70 ANTIBODY, IGG, SERUM (11/06/2024 16:17 EST) Scl 70 Ab, IgG, S <0.2 <1.0 (Negative ) U 11/08/2024 9:53 EST [facility] Comment: Test Performed by: [facility] [place] [id number] Flight Service Specialist: Sadie Hendricks Ph.D.; CLIA# [id number] Blood VENOUS BLOOD / Unknown Venipuncture / Unknown 11/06/2024 16:17 EST 11/06/2024 17:04 EST Result [facility] Nikolay Elizabeth MD MPH IMMUNOLOGY AND SEROLOGY ORD ERABLES Final Result [facility] [address] [place] [address] * SAMPLE CUTTER ANTIBODY, IGG (11/06/2024 16:17 EST) SAMPLE CUTTER Antibody, IgG <6.0 <20.0 CU 024 10:02 EST [facility] Comment:Results were obtaine d with the [employer] QUANTA Flash SAMPLE CUTTER chemilumenscent immunoassay. Values obtained with different manufacturers' assay methods may not be used interchangeably. Blood VENOUS BLOOD / Unknown Venipuncture / Unknown 11/06/2024 16:17 EST 11/06/2024 17:10 EST us Nikolay Elizabeth MD MPH IMMUNOLOGY AND SEROLOGY ORD ERABLES Final Result Performing Organization Address City/[facility] Co de Phone Number [facility] [address] [place] [address] * CCP ANTIBODIES (11/06/2024 16:17 EST) CCP Antibodies <2.5 <5.0 U/mL 11/07/2024 10:17 EST [facility] Blood VENOUS BLOOD / Unknown Venipuncture / Unknown 11/06/2024 16:17 EST 11/06/2024 17:10 EST Nikolay Elizabeth MD MPH IMMUNOLOGY AND SEROLOGY ORD ERABLES Final Result Performing Organization Address City/[facility] Co de Phone Number [facility] [address] [place] [address] * DOUBLE STRANDED DNA ANTIBODY, IGG (11/06/2024 16:17 EST) dsDNA Ab, IgG <22.0 <27.0 IU/mL 11/07/2024 10:02 EST [facility] Comment: Negative: <27.0 IU/mL Indeterminate: 27.0 - 35.0 IU/mL Positive: >35.0 IU/mL Results were obtained with [employer] QUANTA Flash dsDNA chemiluminescent immunoassay. Values obtained with different manufacturers' assay methods may not be used interchangeably. Blood VENOUS BLOOD / Unknown Venipuncture / Unknown 11/06/2024 16:17 EST 11/06/2024 17:10 EST us Nikolay Elizabeth MD MPH IMMUNOLOGY AND SEROLOGY ORD ERABLES Final Result Performing Organization Address [facility]/ZIP Co de Phone Number [facility] [address] [place] [address] * C4 COMPLEMENT (11/06/2024 16:17 EST) C4 Complement 39 13 - 39 mg/dL 11/07/2024 11:04 EST [facility] Blood VENOUS BLOOD / Unknown Venipuncture / Unknown 11/06/2024 16:17 EST 11/06/2024 17:10 EST us Nikolay Elizabeth MD MPH CHEMISTRY & BLOOD GAS ORDER JAD Final Result Performing Organization Address [facility] Co de Phone Number [facility] [address] [place] [address] * C3 COMPLEMENT (11/06/2024 16:17 EST) C3 Complement 87 81 - 157 mg/dL 11/07/2024 11:04 EST [facility] Blood VENOUS BLOOD / Unknown Venipuncture / Unknown 11/06/2024 16:17 EST 11/06/2024 17:10 EST us Nikolay Elizabeth MD MPH CHEMISTRY & BLOOD GAS ORDER JAD Final Result Performing Organization Address [facility] Co de Phone Number [facility] [address] [place] [address] * COMPREHENSIVE METABOLIC PANEL (CMP) (11/06/2024 16:17 EST) Sodium 140 136 - 145 mmol/L 11/06/2024 17:55 EST [facility] Potassium 3.9 3.5 - 5.0 mmol/L 11/06/2024 17:55 [facility] Chloride 105 96 - 110 mmol/L 11/06/2024 17:55 [facility] CO2 Total 22 22 - 32 mmol/L 11/06/2024 17:55 [facility] Glucose 89 70 - 99 mg/dl 11/06/2024 17:55 [facility] BUN 12 10 - 26 mg/dL 11/06/2024 17:55 [facility] Creatinine 0.66 0.52 - 1.04 mg/dL 11/06/2024 17:55 [facility] eGFR 122 >60 mL/min/1.7 3m2 11/06/2024 17:55 [facility] Total Protein 7.5 6.3 - 8.2 g/dL 11/06/2024 17:55 [facility] Albumin 4.8 3.4 - 4.9 g/dL 11/06/2024 17:55 [facility] Alkaline Phosphatase 48 38 - 126 U/L 11/06/2024 17:55 [facility] AST 17 15 - 46 U/L 11/06/2024 17:55 [facility] ALT 12 <35 U/L 11/06/2024 17:55 [facility] Bilirubin, Total <0.5 <1.4 mg/dL 11/06/20 17:55 [facility] Calcium 9.6 8.5 - 10.5 mg/dL 11/06/2024 17:55 [facility] Albumin/Globulin Ratio 1.8 1.0 - 2.5 11/06/2024 17:55 [facility] Anion Gap 13 5 - 14 mmol/L 11/06/2024 17:55 [facility] Blood VENOUS BLOOD / Unknown Venipuncture / Unknown 11/06/2024 16:17 EST 11/06/2024 17:10 EST Nikolay Elizabeth MD MPH CHEMISTRY & BLOOD GAS ORDER JAD Final Result [facility] [address] [place] [address] * COMPLETE BLOOD COUNT AND DIFFERENTIAL (11/06/2024 16:17 [facility]) WBC 6.08 4.00 - 12.40 K/cmm 11/06/2024 17:25 [facility] RBC 4.63 3.86 - 5.04 M/cmm 11/06/2024 17:25 [facility] Hemoglobin 13.1 11.6 - 15.2 g/dL 11/06/2024 17:25 [facility] HCT 37.9 34.9 - 44.4 % 11/06/2024 17:25 [facility] MCV 82 81 - 98 fL 11/06/2024 17:25 [facility] MCH 28.3 26.7 - 33.3 pg 11/06/2024 17:25 [facility] MCHC 34.6 32.1 - 35.9 g/dL 11/06/2024 17:25 [facility] RDW-CV 11.9 <14.7 % 11/06/2024 17:25 [facility] RDW-SD 35.3 <50.4 fl 11/06/2024 17:25 [facility] PLT 267 141 - 377 K/cmm 11/06/2024 17:25 [facility] MPV 10.0 9.5 - 12.7 fL 11/06/2024 17:25 [facility] % Neutrophils 51.2 Not Indicated % 11/06/2024 17:25 [facility] % Lymphocytes 40.0 Not Indicated % 11/06/2024 17:25 [facility] % Monocytes 7.1 Not Indicated % 11/06/2024 17:25 [facility] % Eosinophils 0.7 Not Indicated % 11/06/2024 17:25 [facility] % Basophils 0.7 Not Indicated % 11/06/2024 17:25 [facility] % Immature Grans 0.3 Not Indicated % 11/06/2024 17:25 [facility] Absolute Neutrophils 3.12 2.20 - 8.85 K/cmm 11/06/2024 17:25 [facility] Absolute Lymphocytes 2.43 1.09 - 3.30 K/cmm 11/06/2024 17:25 [facility] Absolute Monocytes 0.43 0.10 - 0.80 K/cmm 11/06/2024 17:25 [facility] Absolute Eosinophils 0.04 0.03 - 0.61 K/cmm 11/06/2024 17:25 [facility] ABS Basophils 0.04 0.01 - 0.11 K/cmm 11/06/2024 17:25 [facility] Absolute Immature Grans 0.02 0.00 - 0.06 K/cmm 11/06/2024 17:25 [facility] Type of Differential: Auto 11/06/2024 17:25 [facility] Blood VENOUS BLOOD / Unknown Venipuncture / Unknown 11/06/2024 16:17 EST 11/06/2024 17:10 EST Nikolay Elizabeth MD MPH PACKAGES & DNA PROBE ORDERA BLES Final Result [facility] [address] [place] [address] documented in this encounter Visit Diagnoses Diagnosis Positive SOCORRO (antinuclear antibody) Other and unspecified nonspecific immunological findings Raynaud's disease without gangrene Arthralgia of both hands Chronic pain of both knees Cyst of left ovary Other and unspecified ovarian cyst documented in this encounter Care Teams Table Inspector Relationship Specialty Start Date End Date Kalyani Douglas MD [address] [place] [address] [phone] PCP - General Family Medicine - Primary Care 03/27/24 Liz Aguilar DO [facility] [address] [place] [address] Family Medicine - Primary Care 03/27/24 documented as of this encounter
--- OUTSIDE RECORDS SUMMARY | 2024-12-08 15:29 | XMS_ITS | Encounter Summary ---
Author Organization [facility] Address [address] [place] [address] Care Team Providers Care Metal Mine Inspector Name Role Phone Kalyani Landeros DNP Primary Care Provider [phone] Reason for Visit * Reason Onset Date Comments Medications Refill 07/18/2022 Encounter Details Date Type Department Care Team (Late st Contact Info) Description 07/18/2022 Refill [facility] [address] [phone] Kalyani Landeros DNP [address] [place] [address] Medications Refill Social History Tobacco Use Types Packs/Day Years [...] of Binge Drinking Not on file 07/2020 PHQ-2 Answer Date Recorded PHQ-2 SUBTOTAL 0 02/01/2021 Interpersonal Safety Answer Date Record ed Physically Hurt Never 06/28/2020 Verbally Threaten Not on file 06/28/2020 Comments No Sex and Gender Information Value [...] Wilson ace, RN documented in this encounter Ordered Prescriptions Prescription Sig Dispense Quantity Refills Last Filled Start Date End Date lisdexamfetamine (VYVANSE) 30 mg capsuleIndications: Attention deficit hyperactivity disorder (ADHD), predominantly inattentive type Take 1 capsule by mouth every morning. Daily Max: 30 mg 28 capsule 07/18/2022 2 documented in this encounter Miscellaneous Notes * Telephone Encounter - Samir Gardner MA - 07/18/2022 1349 EDT Patient notified. * Telephone Encounter - Samir Gardner MA - 07/18/2022 1131 EDT Medication Requested: Vyvanse 30 mg Last OV: 10/11/2021 Next OV: Visit date not found Last Refill: 06/17/2022 CSA: None on file Last UDS: NA VPMS: Queried 07/18/22 11:31 Pharmacy Of Choice: [facility] [place] documented in this encounter Plan of Treatment Upcoming Encounters Date Type Department Care Team (Late st Contact Info) Description 12/11/2024 9:25 EST Hospital Encounter [facility] OR [address] [place] [address] [phone] Celeste Cooper MD [address] [place] [phone] 12/11/2024 9:25 EST - 12/11/2024 11:40 EST Surgery [facility] OR [address] [place] [address] [phone] Celeste Cooper MD [address] [place] [address] [phone] Laparoscopic left ovarian cystectomy [91791 (CPT??)] 12/31/2024 16:15 EST Post-op Visit [facility] OBGYN Services - [address] [phone] Jessika Upton MD [address] [place] [address] [phone] 02/06/2025 13:10 EDT Appointment [facility] OBGYN Services - [address] [phone] 03/05/2025 8:40 EDT Office Visit [facility] Rheumatology & Immunology - [address] [phone] Nikolay Elizabeth MD [address] [place] [phone] Scheduled Procedures Name Priority Associated Diagnoses Date/Ti me LAPAROSCOPY, WITH EXCISION O R FULGURATION OF LESIONS OF OVARY, PELVIC VISCERA, OR PERITONEAL SURFACE Cyst of left ovary 12/11/2024 9:25 EST documented as of this encounter Visit Diagnoses Diagnosis Attention deficit hyperactivity disorder (ADHD), predominantly inattentive type- Primary Cyst of left ovary Other and unspecified ovarian cyst documented in this encounter Discontinued Medications Medication Sig Discontinue Reason Start Date End Da te lisdexamfetamine (VYVANSE) 30 mg capsuleIndications:Attent ion deficit hyperactivity disorder (ADHD), predominantly inattentive type Take 1 capsule by mouth every morning. Daily Max: 30 mg Reorder 06/17/2022 07/18/2022 documented as of this encounter Care Teams Metal Mine Inspector Relationship Specialty Start Date End Date Kalyani Landeros DNP [address] [place] [phone] PCP - General Family Medicine - Primary Care 11/05/20 11/26/22 documented as of this encounter
--- OUTSIDE RECORDS SUMMARY | 2024-12-08 15:29 | XMS_ITS | Encounter Summary ---
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 Name Role Phone Kalyani Douglas MD Primary Care Provider [phone] Liz Aguilar Mikayla DO Unavailable [phone] Reason for Referral * Radiology Services (Routine/Next Available) - Authorization Not Required Specialty Diagnoses / Procedures Referred By Seema kapoor Referred To Contact Diagnoses Chronic pain of both knees Procedures XR RHEUMATOLOGY BILATERAL KNEES 3 VIEWS EACH KNEE Nikolay Elizabeth MD MPH [address] [facility], [address] [place] [address] Phone: tel: fax: [facility] Referral ID Status Reason Start Date Expiration Date Visits Requested Visits Authorized [id number] Authorization Not Required 4 1 1 Reason for Visit * Reason Comments New Patient Visit * Referral (Routine) - Receiving Office to Obtain Authorization Specialty Diagnoses / Procedures Referred By Seema kapoor Referred To Contact Rheumatology Diagnoses Multiple joint pain Positive SOCORRO (antinuclear antibody) Kalyani Douglas MD [address] [place] [address] Phone: tel: fax: [facility] Rheumatology & Immunology - [facility] [address] [place] [address] Phone: tel: fax: Referral ID Status Reason Start Date Expiration Date Visits Requested Visits Authorized [id number] Receiving Office to Obtain Authorization 1 1 Encounter Details Date Type Department Care Team (Late st Contact Info) Description 11/06/2024 15:[address] [facility] Rheumatology & Immunology - [address] [address] Nikolay Elizabeth MD MPH [address] [place] [address], [address] [place] [address] Positive SOCORRO (antinuclear antibody) (Primary Dx); Raynaud's [...] place to sleep or slept in a skilled nursing (including now)? No 10/18/2022 Interpersonal Safety Answer [...] Sign Reading Time Taken Comments Blood Pressure 121/62 11/06/2024 1450 EST Pulse 102 11/06/2024 1450 EST Temperature - - Respiratory Rate - - Oxygen Saturation - - Inhaled Oxygen Concentration - - Weight 54 kg (119 lb) 11/06/2024 1450 EST Height 157.5 cm (5' 2.01) 11/06/2024 1450 EST Body Mass Index 21.76 11/06/2024 1450 EST documented in this encounter Functional Status [...] Wilson ace, RN documented in this encounter Patient Instructions * Patient Instructions* Nikolay Elizabeth MD MPH - 11/06/2024 15:00 EST - Get lab work today (2nd floor) X ray of knees ( 3 floorP - - Will message via TrustYou or call with results For joint pain consider using topical medication. Heat as needed for joint pain. For raynauds try to keep hands and feet warm with the use of gloves and socks. Also try to keep core body warm. For dry eye use eye drops. Follow up in four weeks. documented in this encounter Progress Notes * Nikolay Elizabeth MD MPH - 11/06/2024 1500 EST [facility] Rheumatology and Clinical Immunology Initial Patient Visit Chief Complaint: Chief Complaint Patient presents with New Patient Visit Patient ID: Ulises Skelton Date of Service: 11/06/2024 Patient age: 29 y.o. Patient gender: female Subjective / HPI: Ms. Skelton is a 29-year-old female who comes to the rheumatology clinic for new patient appointment. As per the referral order under referrals reason for referral is multiple joint pain. Reviewed results of x-ray of SI: June 2024 joint: normal appearing SI joint. X-ray of lumbar spine no significant findings. No fracture, no disc space narrowing. CRP < 0.5 creatinine 0.7. Normal AST ALT. Stable CBC. Rheumatoid factor <8.6. SOCORRO 1 is to 320speckled pattern. This visit mentions has been having joint pain involving knees, elbows, wrist, ankles for long timeabout 10 years, has worsened over couple of years. Joints seem locked up when patient wakes up. Joint swelling of the knee joints. Not at present, notices by the end of the day. Knees get red andhot. Joint stiffness in the morning all the joints. Last for about 30 minutes to an hour and then subsides. Alleviating and aggravating factors: No particular. Advil and tylenol helps little with the joint symptoms. Has difficulty falling asleep and staying asleep due to pain. Notices Raynaud's symptoms. Patient gets change in the color of bilateral fingers and toes to white. Has noticed the symptoms for past 4 years on exposure to cold weather. Review of Systems: Notices dry eyes has not used eye drops, have an eye doctor, once every two years. Use to wear glasses previously. No pain or redness of the eyes. Notices dry mouth, occasional hives which are itchy, occasional nausea. No sores in the mouth, chest pain, difficulty breathing, vomiting, diarrhea or blood in the stool Family History: - Denies family history of inflammatory arthritis or autoimmune conditions. Grand mother and great grand mother on maternal side: Lupus. Paternal Grand father: RA, OA. Current Outpatient Medications Medication fexofenadine (MARTHA) 60 mg tablet ibuprofen (MOTRIN) 400 mg tablet lisdexamfetamine (VYVANSE) 30 mg capsule LORazepam (ATIVAN) 0.5 mg tablet metFORMIN (GLUCOPHAGE) 500 mg tablet ondansetron (ZOFRAN-ODT) 4 mg disintegrating tablet spironolactone (ALDACTONE) 50 mg tablet VYVANSE 40 mg capsule No current facility-administered medications for this visit. Allergies Allergen Reactions Novocain [Procaine] Nausea And Vomiting PMH PSH Past Medical History: Diagnosis Date ADHD (attention deficit hyperactivity disorder) Anxiety Depression Dysmenorrhea Low vitamin D level PTSD (post-traumatic stress disorder) Rubella non-immune status, antepartum 11/18/2019 Give pp Sleep disorder Thyromegaly TMJ syndrome Vaginal delivery 01/2020 no anesthesia Vertigo Past Surgical History: Procedure Laterality Date DILATION AND CURETTAGE OF UTERUS WISDOM TOOTH EXTRACTION Social History Family history Social History Tobacco Use Smoking status: Never [...] Brother Diabetes Paternal Grandmother Diabetes Paternal Grandfather Objective: BP 121/62 (BP Cuff Location: Right arm, BP Patient Position: Sitting, BP Cuff Sizes: Adult, regular) Pulse 102 Ht 157.5 cm (62.01) Wt 54 kg (119 lb) BMI 21.76 kg/m?? Body mass index is 21.76 kg/m??. General: No acute distress. Alert, fully oriented. HEENT: Conjunctivae/corneas clear. Pupils equal, Sclerae anicteric. Mucus membranes moist; oropharynx clear. Neck symmetrical, trachea midline Extremities: Extremities without cyanosis or edema. Skin: No rashes or lesions Musculoskeletal: Hand: No synovitis, muscle wasting or deformity. Full range of movement. Elbow: No tenderness on palpation of medial or lateral epicondyle. Normal range of motion. No nodules. Shoulder: No synovitis or swelling. Normal range of motion in shoulders bilaterally. Hip: No tenderness on palpation over anterior superior iliac crest, greater trochanter. No pain with log roll. ROM normal. Knee: No asymmetry, muscle wasting, scars or deformities. No joint effusions or swellings. No tenderness on palpation of femoral epicondyle or tibial tuberosity. Foot: No tenderness on palpation of the ankles or MTP joint bilaterally. Normal range of movement. Workup: I have personally reviewed and the imaging / lab results Labs: - Reviewed as per HPI Imaging: As per HPI Assessment & Plan: 1. Positive SOCORRO (antinuclear antibody) COMPLETE BLOOD COUNT AND DIFFERENTIAL COMPREHENSIVE METABOLIC PANEL (CMP) C3 COMPLEMENT C4 COMPLEMENT DOUBLE STRANDED DNA ANTIBODY, IGG CCP ANTIBODIES DROP COUNT ASSOCIATE ANTIBODY, IGG SCL 70 ANTIBODY, IGG, SERUM SM ([place]) ANTIBODY, IGG RO52 ANTIBODY, IGG RO60 ANTIBODY, IGG SS-B (LA) ANTIBODY, IGG UA CHEMICAL & SEDIMENT 2. Raynaud's disease without gangrene COMPLETE BLOOD COUNT AND DIFFERENTIAL COMPREHENSIVE METABOLIC PANEL (CMP) C3 COMPLEMENT C4 COMPLEMENT DOUBLE STRANDED DNA ANTIBODY, IGG CCP ANTIBODIES DROP COUNT ASSOCIATE ANTIBODY, IGG SCL 70 ANTIBODY, IGG, SERUM SM ([place]) ANTIBODY, IGG RO52 ANTIBODY, IGG RO60 ANTIBODY, IGG SS-B (LA) ANTIBODY, IGG UA CHEMICAL & SEDIMENT 3. Arthralgia of both hands COMPLETE BLOOD COUNT AND DIFFERENTIAL COMPREHENSIVE METABOLIC PANEL (CMP) C3 COMPLEMENT C4 COMPLEMENT DOUBLE STRANDED DNA ANTIBODY, IGG CCP ANTIBODIES DROP COUNT ASSOCIATE ANTIBODY, IGG SCL 70 ANTIBODY, IGG, SERUM SM ([place]) ANTIBODY, IGG RO52 ANTIBODY, IGG RO60 ANTIBODY, IGG SS-B (LA) ANTIBODY, IGG UA CHEMICAL & SEDIMENT 4. Chronic pain of both knees COMPLETE BLOOD COUNT AND DIFFERENTIAL COMPREHENSIVE METABOLIC PANEL (CMP) C3 COMPLEMENT C4 COMPLEMENT DOUBLE STRANDED DNA ANTIBODY, IGG CCP ANTIBODIES DROP COUNT ASSOCIATE ANTIBODY, IGG SCL 70 ANTIBODY, IGG, SERUM SM ([place]) ANTIBODY, IGG RO52 ANTIBODY, IGG RO60 ANTIBODY, IGG SS-B (LA) ANTIBODY, IGG UA CHEMICAL & SEDIMENT XR RHEUMATOLOGY BILATERAL KNEES 3 VIEWS EACH KNEE Get lab work today (2nd floor) X ray of both knees ( 3 floor) For joint pain consider using topical medication. Heat as needed for joint pain. For raynauds try to keep hands and feet warm with the use of gloves and socks. Also try to keep core body warm. For dry eye use eye drops. Follow up in four weeks. Nikolay Elizabeth MD MPH, 11/06/2024 14:56 I spent a total of 60 minutes on the date of this encounter meeting with the patient and reviewing documentation/coordinating care as described in the above note. Addendum: CBC, CMP, C3 and C4 are normal. JACK panel is negative. UA does not show protein or blood. It shows WBC, leukocyte esterase positive and bacteria. Tried calling patient to discuss lab results at the mobile number listed, it goes to voice mail. Will send a message to the patient with the results. documented in this encounter Plan of Treatment Upcoming Encounters Date Type Department Care Team (Late st Contact Info) Description 12/11/2024 9:25 EST Hospital Encounter [facility] [place] [address] [place] [address] [phone] Celeste Cooper MD [address] [place] [address] 4 [place] [phone] 12/11/2024 9:25 EST - 12/11/2024 11:40 EST Surgery [facility] [place] [address] [place] [phone] Celeste Cooper MD [address] [place] [address] 4 [place] [phone] Laparoscopic left ovarian cystectomy [16197 (CPT??)] 12/31/2024 16:15 EST Post-op Visit [facility] OBGYN Services - [address] [address] Jessika Upton MD [address] [place] [phone] 02/06/2025 13:[address] [facility] [address] [phone] 03/05/2025 8:[address] [facility] Rheumatology & Immunology - [address] [phone] Nikolay Elizabeth MD [address] [place] [phone] Scheduled Orders Name Type Priority Associated Diagnoses Orde r Schedule XR RHEUMATOLOGY BILATERAL KNEES 3 VIEWS EACH KNEE Imaging Routine Chronic pain of both knees Expected: 11/06/2024, Expires: 11/06/2025 Scheduled Procedures Name Priority Associated Diagnoses Date/Ti me LAPAROSCOPY, WITH EXCISION O R FULGURATION OF LESIONS OF OVARY, PELVIC VISCERA, OR PERITONEAL SURFACE Cyst of left ovary 12/11/2024 9:25 EST documented as of this encounter Results * (ABNORMAL) UA CHEMICAL & SEDIMENT (11/06/2024 16:17 EST) Color UA Yellow Colorless, Yellow 11/06/2024 17:04 [facility] Clarity UA Clear Clear 11/06/2024 17:04 [facility] Glucose UA Negative Negative 11/06/2024 17:04 [facility] Bilirubin UA Negative Negative 11/06/2024 17:04 [facility] Ketones UA Negative Negative 11/06/2024 17:04 [facility] Specific [place], Urine 1.019 1.001 - 1.030 11/06/2024 17:04 [facility] Blood UA Negative Negative 11/06/2024 17:04 [facility] Urobilinogen UA 1.0 0.2-1.0 mg/dL mg/dL 11/06/2024 17:04 [facility] Nitrite UA Negative Negative 11/06/2024 17:04 [facility] Leukocyte Esterase UA Trace(A) Negative 11/06/2024 17:04 [facility] Protein UA Negative Negative 11/06/2024 17:04 [facility] pH, UA 7.0 5.0 - 8.0 11/06/2024 17:04 [facility] Urine RBC Count, Auto 0 - 2 0 - 2 Cells/HPF 11/06/2024 17:04 [facility] Urine WBC Count, Auto 4 - 9(A) 0 - 3 Cells/HPF 11/06/2024 17:04 [facility] Urine Squamous Count, Auto Few(A) None Seen Cells/HPF 11/06/2024 17:04 [facility] Urine Hyaline Cast Count, Auto <=10 <=10 Casts/LPF 11/06/2024 17:04 [facility] Urine Bacteria Count, Auto Moderate(A) None Seen Bacteria/HP F 11/06/2024 17:04 [facility] Urine URINE SPECIMEN OBTAINED BY CLEAN CATCH PROCEDURE / Unknown Urine Collect / Unknown 11/06/2024 16:17 EST 11/06/2024 16:58 EST Narrative [facility] - 11/06/2024 17:04 EST Urine Sediment Analysis results are unreliable on urines that are unrefrigerated for >2 hrs or refrigerated >8 hrs. us Nikolay Elizabeth MD MPH URINALYSIS ORDERABLES Final Result Performing Organization Address [facility] de Phone Number [facility] [address] [place] [address] * SS-B (LA) ANTIBODY, IGG (11/06/2024 16:17 EST) SSB Antibody, IgG <3.3 <20.0 CU 10:02 EST [facility] Comment:Results were obtaine d with the [employer] QUANTA Flash SS-B chemiluminescent immunoassay. Values obtained with different manufacturers' assay methods must not be used interchangeably. Blood VENOUS BLOOD / Unknown Venipuncture / Unknown 11/06/2024 16:17 EST 11/06/2024 17:10 EST Result [facility] us Nikolay Elizabeth MD MPH IMMUNOLOGY AND SEROLOGY ORD ERABLES Final Result Performing Organization Address [facility] de Phone Number [facility] [address] [place] [address] * RO60 ANTIBODY, IGG (11/06/2024 16:17 EST) Ro60 Antibody, IgG <7.0 <20.0 CU 2023 10:02 EST [facility] Comment:Results were obtaine d with the [employer] QUANTA Flash Ro60 chemiluminescent immunoassay. Values obtained with different manufacturers' assay methods must not be used interchangeably. Blood VENOUS BLOOD / Unknown Venipuncture / Unknown 11/06/2024 16:17 EST 11/06/2024 17:10 EST Result [facility] us Nikolay Elizabeth MD MPH IMMUNOLOGY AND SEROLOGY ORD ERABLES Final Result Performing Organization Address City/[facility]/ZIP Co de Phone Number [facility] [address] [place] [address] * RO52 ANTIBODY, IGG (11/06/2024 16:17 EST) Ro52 Anitbody, IgG <2.3 <20.0 CU 2023 10:02 EST [facility] Comment:Results were obtaine d with the [employer] QUANTA Flash Ro52 chemiluminescent immunoassay. Values obtained with different manufacturers' assay methods must not be used interchangeably. Blood VENOUS BLOOD / Unknown Venipuncture / Unknown 11/06/2024 16:17 EST 11/06/2024 17:10 EST Nikolay Elizabeth MD MPH IMMUNOLOGY AND SEROLOGY ORD ERABLES Final Result Performing Organization Address [facility] Co de Phone Number [facility] [address] [place] [address] * SM ([place]) ANTIBODY, IGG (11/06/2024 16:17 EST) SM ([place]) Antibody, IgG <8.0 <20.0 CU 11/07/2024 10:02 EST [facility] Comment:Results were obtaine d with the [employer] QUANTA Flash Sm chemiluminescent immunoassay. Values obtained with different manufacturers' assay methods must not be used interchangeably. Blood VENOUS BLOOD / Unknown Venipuncture / Unknown 11/06/2024 16:17 EST 11/06/2024 17:10 EST us Nikolay Elizabeth MD MPH IMMUNOLOGY AND SEROLOGY ORD ERABLES Final Result Performing Organization Address City/[facility]/ZIP Co de Phone Number [facility] [address] [place] [address] * SCL 70 ANTIBODY, IGG, SERUM (11/06/2024 16:17 EST) Scl 70 Ab, IgG, S <0.2 <1.0 (Negative ) U 11/08/2024 9:53 EST [facility] Comment: Test Performed by: [facility] [address] [place] [address] [employer]erryboat Operator: Sadie Hendricks Ph.D.; CLIA# [id number] Blood VENOUS BLOOD / Unknown Venipuncture / Unknown 11/06/2024 16:17 EST 11/06/2024 17:04 EST us Nikolay Elizabeth MD MPH IMMUNOLOGY AND SEROLOGY ORD ERABLES Final Result [facility] [address] [place] [address] * DROP COUNT ASSOCIATE ANTIBODY, IGG (11/06/2024 16:17 EST) DROP COUNT ASSOCIATE Antibody, IgG <6.0 <20.0 CU 024 10:02 EST [facility] Comment:Results were obtaine d with the [employer] Flash DROP COUNT ASSOCIATE chemilumenscent immunoassay. Values obtained with different manufacturers' assay methods may not be used interchangeably. Blood VENOUS BLOOD / Unknown Venipuncture / Unknown 11/06/2024 16:17 EST 11/06/2024 17:10 EST us Nikolay Elizabeth MD MPH IMMUNOLOGY AND SEROLOGY ORD ERABLES Final Result Performing Organization Address City/[facility] Co de Phone Number [facility] [address] [place] [id number] * CCP ANTIBODIES (11/06/2024 16:17 EST) CCP Antibodies <2.5 <5.0 U/mL 11/07/2024 10:17 EST [facility] Blood VENOUS BLOOD / Unknown Venipuncture / Unknown 11/06/2024 16:17 EST 11/06/2024 17:10 EST us Nikolay Elizabeth MD MPH IMMUNOLOGY AND SEROLOGY ORD ERABLES Final Result [facility] [address] [place], [place] [id number] * DOUBLE STRANDED DNA ANTIBODY, IGG (11/06/2024 16:17 EST) dsDNA Ab, IgG <22.0 <27.0 IU/mL 11/07/2024 10:02 EST [facility] Comment: Negative: <27.0 IU/mL Indeterminate: 27.0 - 35.0 IU/mL Positive: >35.0 IU/mL Results were obtained with [employer] Flash dsDNA chemiluminescent immunoassay. Values obtained with different manufacturers' assay methods may not be used interchangeably. Blood VENOUS BLOOD / Unknown Venipuncture / Unknown 11/06/2024 16:17 EST 11/06/2024 17:10 EST us Nikolay Elizabeth MD MPH IMMUNOLOGY AND SEROLOGY ORD ERABLES Final Result Performing Organization Address City/[facility]/ZIP Co de Phone Number [facility] [address] [place], [place] [phone] * C4 COMPLEMENT (11/06/2024 16:17 EST) Pathologist [facility] C4 Complement 39 13 - 39 mg/dL 11/07/2024 11:04 EST [facility] Blood VENOUS BLOOD / Unknown Venipuncture / Unknown 11/06/2024 16:17 EST 11/06/2024 17:10 EST us Nikolay Elizabeth MD MPH CHEMISTRY & BLOOD GAS ORDER JAD Final Result [facility] [address] [place], [place] [phone] * C3 COMPLEMENT (11/06/2024 16:17 EST) C3 Complement 87 81 - 157 mg/dL 11/07/2024 11:04 EST [facility] Blood VENOUS BLOOD / Unknown Venipuncture / Unknown 11/06/2024 16:17 EST 11/06/2024 17:10 EST us Nikolay Elizabeth MD MPH CHEMISTRY & BLOOD GAS ORDER JAD Final Result [facility] [address] [place] [address] * COMPREHENSIVE METABOLIC PANEL (CMP) (11/06/2024 16:17 EST) Sodium 140 136 - 145 mmol/L 11/06/2024 17:55 [facility] Potassium 3.9 3.5 - 5.0 mmol/L 11/06/2024 17:55 [facility] Chloride 105 96 - 110 mmol/L 11/06/2024 17:55 [facility] CO2 Total 22 22 - 32 mmol/L 11/06/2024 17:55 [facility] Glucose 89 70 - 99 mg/dl 11/06/2024 17:55 [facility] BUN 12 10 - 26 mg/dL 11/06/2024 17:55 [facility] Creatinine 0.66 0.52 - 1.04 mg/dL 11/06/2024 17:55 [facility] eGFR 122 >60 mL/min/1.7 3m2 11/06/2024 17:55 [facility] Total Protein 7.5 6.3 - 8.2 g/dL 11/06/2024 17:55 [facility] Albumin 4.8 3.4 - 4.9 g/dL 11/06/2024 17:55 [facility] Alkaline Phosphatase 48 38 - 126 U/L 11/06/2024 17:55 [facility] AST 17 15 - 46 U/L 11/06/2024 17:55 [facility] ALT 12 <35 U/L 11/06/2024 17:55 [facility] Bilirubin, Total <0.5 <1.4 mg/dL 11/06/20 17:55 [facility] Calcium 9.6 8.5 - 10.5 mg/dL 11/06/2024 17:55 [facility] Albumin/Globulin Ratio 1.8 1.0 - 2.5 11/06/2024 17:55 [facility] Anion Gap 13 5 - 14 mmol/L 11/06/2024 17:55 [facility] Blood VENOUS BLOOD / Unknown Venipuncture / Unknown 11/06/2024 16:17 EST 11/06/2024 17:10 EST Nikolay Elizabeth MD MPH CHEMISTRY & BLOOD GAS ORDER JAD Final Result [facility] [address] [place], [place] [id number] * COMPLETE BLOOD COUNT AND DIFFERENTIAL (11/06/2024 16:17 EST) WBC 6.08 4.00 - 12.40 K/cmm 11/06/2024 17:25 [facility] RBC 4.63 3.86 - 5.04 M/cmm 11/06/2024 17:25 [facility] Hemoglobin 13.1 11.6 - 15.2 g/dL 11/06/2024 17:25 [facility] HCT 37.9 34.9 - 44.4 % 11/06/2024 17:25 [facility] MCV 82 81 - 98 fL 11/06/2024 17:25 [facility] MCH 28.3 26.7 - 33.3 pg 11/06/2024 17:25 [facility] MCHC 34.6 32.1 - 35.9 g/dL 11/06/2024 17:25 [facility] RDW-CV 11.9 <14.7 % 11/06/2024 17:25 [facility] RDW-SD 35.3 <50.4 fl 11/06/2024 17:25 [facility] PLT 267 141 - 377 K/cmm 11/06/2024 17:25 [facility] MPV 10.0 9.5 - 12.7 fL 11/06/2024 17:25 [facility] % Neutrophils 51.2 Not Indicated % 11/06/2024 17:25 [facility] % Lymphocytes 40.0 Not Indicated % 11/06/2024 17:25 [facility] % Monocytes 7.1 Not Indicated % 11/06/2024 17:25 [facility] % Eosinophils 0.7 Not Indicated % 11/06/2024 17:25 [facility] % Basophils 0.7 Not Indicated % 11/06/2024 17:25 [facility] % Immature Grans 0.3 Not Indicated % 11/06/2024 17:25 [facility] Absolute Neutrophils 3.12 2.20 - 8.85 K/cmm 11/06/2024 17:25 [facility] Absolute Lymphocytes 2.43 1.09 - 3.30 K/cmm 11/06/2024 17:25 [facility] Absolute Monocytes 0.43 0.10 - 0.80 K/cmm 11/06/2024 17:25 [facility] Absolute Eosinophils 0.04 0.03 - 0.61 K/cmm 11/06/2024 17:25 [facility] ABS Basophils 0.04 0.01 - 0.11 K/cmm 11/06/2024 17:25 [facility] Absolute Immature Grans 0.02 0.00 - 0.06 K/cmm 11/06/2024 17:25 [facility] Type of Differential: Auto 11/06/2024 17:25 [facility] Blood VENOUS BLOOD / Unknown Venipuncture / Unknown 11/06/2024 16:17 EST 11/06/2024 17:10 EST us Nikolay Elizabeth MD MPH PACKAGES & DNA PROBE ORDERA BLES Final Result [facility] [address] [place] [address] documented in this encounter Visit Diagnoses Diagnosis Positive SOCORRO (antinuclear antibody)- Primary Other and unspecified nonspecific immunological findings Raynaud's disease without gangrene Arthralgia of both hands Chronic pain of both knees Cyst of left ovary Other and unspecified ovarian cyst documented in this encounter Historical Medications * This list may reflect changes made after this encounter. VYVANSE 40 mg capsule Take 1 Capsule by mouth daily. metFORMIN (GLUCOPHAGE) 500 mg tablet Take 1 Tablet by mouth every morning. 06/10/2023 added in this encounter Care Teams Windmill Mechanic Relationship Specialty Start Date End Date Kalyani Douglas MD [address] [place] [address] PCP - General Family Medicine - Primary Care 03/27/24 Liz Aguilar DO [address] [place] [address] [address] [place] [address] Family Medicine - Primary Care 03/27/24 documented as of this encounter
--- OUTSIDE RECORDS SUMMARY | 2024-12-08 15:29 | XMS_ITS | Encounter Summary ---
Author Organization [facility] Address [address] [place] [address] Care Team Providers Care Inspector Electromechanical Name Role Phone Kalyani Douglas MD Primary Care Provider [phone] FortinoLiz gee DO Unavailable [phone] Encounter Details Date Type Department Care Team (Latest Contact Info) Description 08/06/2024 Lab Requisition [facility] Pathology & Laboratory Medicine - [address] [address] Kalyani Douglas MD [address] [place] [phone] Encounter for general adult medical examination without abnormal findings; Encounter for gynecological examination (general) (routine) without abnormal findings; Encounter for screening for malignant neoplasm of cervix Social History Tobacco Use Types Packs/Day Years [...] place to sleep or slept in a snf (including now)? No 10/18/2022 Interpersonal Safety Answer [...] Info) Description 12/11/2024 9:[address] [facility] OR [address] [place] [address] [id number] Celeste Cooper MD [address] [place] [phone] 12/11/2024 9:25 EST - 12/11/2024 11:[address] [facility] OR [address] [place] [address] [id number] Celeste Cooper MD [address] [place] [phone] Laparoscopic left ovarian cystectomy [33497 (CPT??)] 12/31/2024 16:15 EST Post-op Visit [facility] OBGYN Services - [address] [id number] Jessika Upton MD [address] [place] [phone] 02/06/2025 13:10 EDT Appointment [facility] OBGYN Services - [address] [id number] 03/05/2025 8:40 EDT Office Visit [facility] Rheumatology & Immunology - [address] [address] Nikolay Elizabeth MD MPH [address] [facility], [address] [place] [address] Scheduled Procedures Name Priority Associated Diagnoses Date/Ti me LAPAROSCOPY, WITH EXCISION O R FULGURATION OF LESIONS OF OVARY, PELVIC VISCERA, OR PERITONEAL SURFACE Cyst of left ovary 12/11/2024 9:25 EST documented as of this encounter Procedures Procedure Name Priority Date/Time Associated Diagnosis Comments PAP TEST Today 08/01/2024 13:45 EDT Encounter for gynecological examination (general) (routine) without abnormal findings Encounter for screening for malignant neoplasm of cervix Encounter for general adult medical examination without abnormal findings documented in this encounter Results * PAP TEST (08/01/2024 13:45 EDT) Specimens A. Cervix and/or Endocervix , ThinPrep Imaging System with Manual Evaluation 08/15/2024 11:52 EDT [facility] Specimen Adequacy Satisfactory for Evaluation - transformation zone component present 08/15/2024 11:52 T [facility] General Categorization Negative for intraepithelial lesion or malignancy 08/15/2024 11:52 T [facility] Attestation . 08/15/2024 11:52 T [facility] at 1152 Clinical History SEE BELOW 08/15/20 11:52 EDT [facility] Performing Lab [facility] 08/15/2024 11:52 EDT [facility] Scanned Images 08/15/2024 11:52 EDT [facility] Pap Test CERVIX UTERI STRUCTURE / Unknown 08/01/2024 13:45 EDT 08/06/2024 14:27 EDT us Kalyani Douglas MD PATHOLOGY ORDERABLES Final Res ult [facility] [address] [place] [address] documented in this encounter Visit Diagnoses Diagnosis Encounter for general adult medical examination without abnormal findings Unspecified general medical examination Encounter for gynecological examination (general) (routine) without abnormal findings Encounter for screening for malignant neoplasm of cervix Screening for malignant neoplasm of the cervix Cyst of left ovary Other and unspecified ovarian cyst documented in this encounter Care Teams Inspector Electromechanical Relationship Specialty Start Date End Date Kalyani Douglas MD [address] [place] [address] PCP - General Family Medicine - Primary Care 03/27/24 Liz Aguilar DO [address] [place] [address] [address] [place] [address] Family Medicine - Primary Care 03/27/24 documented as of this encounter
--- OUTSIDE RECORDS SUMMARY | 2024-12-08 15:29 | XMS_ITS | Encounter Summary ---
Author Organization [facility] Address [address] [place] [address] Care Team Providers Care Miner Helper Name Role Phone Kalyani Douglas MD Primary Care Provider [phone] WilliamLiz davis DO Unavailable [phone] Reason for Visit * Reason Onset Date Comments Abdominal Pain 12/03/2024 Encounter Details Date Type Department Care Team (Late st Contact Info) Description 12/03/[address] [facility] OBGYN Services - [address] [phone] Celeste Cooper MD [address] [place] [address], [address] [place] [address] Abdominal Pain Social History Tobacco Use Types Packs/Day Years Used Date Smoking Tobacco: Never Passive Smoke Exposure: Never Smokeless Tobacco: Never Alcohol Use Standard Drinks/Week Comments Not Currently [...] money to buy more. Never true 10/18/20 Within the past 12 months, t he [...] place to sleep or slept in a half-way (including now)? No 10/18/2022 Interpersonal Safety Answer Date Record ed How often does anyone, inclsteve geraldine family, hit, punch or physically hurt you? 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 Pain is across majority of lower abdomen, is sharp pain, almost feels like she's bloated. She she's had bowel movement, she's seen blood in the toilet, but doesn't think it's vaginal. When it gets worse, it's a 7/10, right now she's at a 5/10. Call [phone], detailed VM ok. Call anytime. documented in this encounter Plan of Treatment Upcoming Encounters Date Type Department Care Team (Late st Contact Info) Description 12/11/2024 9:25 EST Hospital Encounter [facility] OR [address] [place], [place] [phone] Celeste Cooper MD [address] [place] [address], [address] [place] [phone] 12/11/2024 9:25 EST - 12/11/2024 11:40 EST Surgery [facility] OR [address] [place], [place] 384[address] Celeste Cooper MD [address] [facility], [address] [place] [phone] Laparoscopic left ovarian cystectomy [[id number] (CPT??)] 12/31/2024 16:15 EST Post-op Visit [facility] OBGYN Services - [address] [phone] Jessika Upton MD [address] [place] [phone] 02/06/2025 13:10 EDT Appointment [facility] OBGYN Services [address] [phone] 03/05/2025 8:40 EDT Office Visit [facility] Rheumatology & Immunology - [address] [phone] Nikolay Elizabeth MD [facility] [address] [facility], [address] [place] [address] Scheduled Procedures Name Priority Associated Diagnoses Date/Ti me LAPAROSCOPY, WITH EXCISION O R FULGURATION OF LESIONS OF OVARY, PELVIC VISCERA, OR PERITONEAL SURFACE Cyst of left ovary 12/11/2024 9:25 EST documented as of this encounter Visit Diagnoses Not on filedocumented in this encounter Care Teams Miner Helper Relationship Specialty Start Date End Date Kalyani Douglas MD [address] [place] [phone] PCP - General Family Medicine - Primary Care 03/27/24 Liz Aguilar DO [address] [place] [address] [address] [place], [place] [address] Family Medicine - Primary Care 03/27/24 documented as of this encounter
--- OUTSIDE RECORDS SUMMARY | 2024-12-08 15:29 | XMS_ITS | Encounter Summary ---
Author Organization [facility] Address [address] [place] [address] Care Team Providers Care Supervisor Vat House Name Role Phone Kalyani Douglas MD Primary Care Provider [phone] Liz Aguilar Mikayla DO Unavailable [phone] Encounter Details Date Type Department Care Team (Late st Contact Info) Description 12/02/2024 10:30 EST - 12/02/2024 16:35 [facility] Hospital Encounter [facility] Main Novelty Pre-Surgical Testing [address] [place], [place] [phone] Social History Tobacco Use Types Packs/Day Years [...] Sign Reading Time Taken Comments Blood Pressure - - Pulse - - Temperature - - Respiratory Rate - - Oxygen Saturation - - Inhaled Oxygen Concentration - - Weight 54.4 kg (120 lb) 12/02/2024 1616 EST Height 157.5 cm (5' 2) 12/02/2024 1616 EST Body Mass Index 21.95 12/02/2024 1616 EST documented in this encounter Functional Status [...] Wilson ace, RN documented in this encounter Medications at Time [...] mouth daily. documented as of this encounter OR Notes * Preprocedure Instructions - Pedro Sandra LPN - 12/02/2024 1030 EST Ulises Skelton has been instructed as follows regarding medication administration for the day of the scheduled procedure. Date of Surgery: 12/11/2024 Instructions for Taking Medications Day of Surgery Medication Dose and frequency Last Dose Hold Day of Surgery Take Day of Surgery fexofenadine (MARTHA) 60 mg tablet Take 1 Tablet by mouth as needed. take ibuprofen (MOTRIN) 400 mg tablet Take 1 Tab by mouth every 4 hours as needed for Pain. 12/08/2024 HOLD ketOROLAC (TORADOL) 10 mg tablet Take 1 Tablet by mouth every 6 hours as needed for Pain. 12/08/2024 HOLD lisdexamfetamine (VYVANSE) 30 mg capsule Take 1 capsule by mouth every morning. Daily Max: 30 mg Patient taking differently: Take 40 mg by mouth every morning. HOLD LORazepam (ATIVAN) 0.5 mg tablet Take 1 Tab by mouth at bedtime as needed for Anxiety. Daily Max: 0.5 mg Take if needed metFORMIN (GLUCOPHAGE) 500 mg tablet Take 1 Tablet by mouth every morning. Take ondansetron (ZOFRAN-ODT) 4 mg disintegrating tablet TAKE 1 TABLET BY MOUTH EVERY 8 HOURS NEEDED FOR NAUSEA Take if needed spironolactone (ALDACTONE) 50 mg tablet Take 1 Tablet by mouth every morning. HOLD VYVANSE 40 mg capsule Take 1 Capsule by mouth daily. duplicate PEDRO SANDRA LPN Please call the PAT department at [phone] if you start any new medications or if you are taking any medications that were not reported at the time of your call Instructions: Call your surgeon prior to surgery date IF: You become ill. You have any new skin problems near the area where your surgery will be, such as a rash, blister, or infection. Your surgeon may have given you specific instructions to prepare for surgery. Please follow surgeonspecific instructions & call surgeon's office with any questions. Fasting: Follow the eating and drinking instructions below unless otherwise instructed by your surgeon. No solid food or liquids containing fats, including milk*, after midnight. On the day of your procedure, you should only have clear liquids (see ???Acceptable Liquids?? listed below). Stop drinking 2 hours before your arrival time to the hospital. Acceptable Liquids: DO NOT ADD THICKENERS TO ANY LIQUIDS Water Clear apple juice Clear white grape juice Clear sports drinks / Pedialyte (no protein or coconut water based sports drinks) *Children under 3 years of age: Water- up to 4 hours before surgical time Clear apple juice- up to 4 hours before surgical time Clear white grape juice- up to 4 hours before surgical time Clear sports drinks / Pedialyte- up to 4 hours before surgical time Breast milk - up to 4 hours before surgical time - *do not add cereals Non-human milk or formula - up to 6 hours before surgical time *do not add cereal or use formula with cereal already added Shower: with an ANTIBACTERIAL SOAP (or scrub sponge if provided by your surgeon's office) the nightbefore surgery and the morning of surgery. Do not shave your surgical site for 3 days prior to surgery. After your morning shower avoid using creams, lotion, powders, deodorant, makeup, hairspray, perfumes or colognes. Remove all fingernail belizean, makeup, jewelery and body piercings before surgery. Ride Home: We require you have a responsible adult to drive you home after surgery or to accompany you if getting home via Taxi or Bus. If your ride cannot wait for you at the hospital, they still need to come in to pick you up, to assist with medication filler picker from pharmacy, review of discharge instructions and surgical consult. We ask that your ride stay within 15 minutes of the hospital for filler picker. Medications: Take as directed above with a sip of water on day of surgery. (If a medication must betaken with something other than clear liquids or sips of water, please call the PreAdmission Testing Clinic at for guidance.) Bring a list of your medications to the hospital. Please list when you last took each of medication. Leave actual medications at home unless told otherwise. CPAP/BiPAP: Bring your cleaned CPAP/BiPAP machine into preop on the day of your surgery. Be sure toempty the water chamber prior to transport Smoking: Stop smoking tobacco and marijuana prior to surgery as much as possible, avoiding it for aminimum of 24 hours prior to surgery. Legal Guardianship: BRING Proof of Guardianship on Day of Surgery. Legal Guardian must be availableon the Day of Surgery by Telephone if not physically present on the Day of Surgery. Clothing: Wear loose fitting and comfortable clothing. For arm and hand surgery wear a zip up or button up shirt with short sleeves. For eye surgery, do not wear a shirt that pulls over the head unless it has a wide neck opening. Valuables: Do not bring any on day of surgery, except money you may need for you hospital co-pay orto purchase any prescriptions. Visitation: Typically, two visitors are allowed in the Preop and Recovery areas. Each area of the hospital may have different visitation guidelines. Contact Information: Prior to Day of Surgery, call Pre-Admission Testing Clinic: [phone]. PAT toll Free Number . For Day of Surgery: [facility]: [phone] [facility]; [phone]. Visit our website for more information: [email or web address] Advance Directives: You can get the forms in a doctor's office, a hospital, a law office, a state or local office for the aging, a senior center, a alf, or online. For more information, including forms for your state, see the [employer] website (www.[employer].org/planning/advance-directives/). If not already done, please bring a signed copy of your Advance Directive with you to the hospital so that it may scanned into your electronic health record. documented in this encounter Miscellaneous Notes * XIN Note - Liz Michael DNP - 12/02/2024 1030 EST Anesthesia Review Needed Date Review Started: 12/02/2024 Novelty ([facility]): Main DOS: 12/11/2024 Surgeon: Kenneth Procedure: left ovarian cystectomy Notable Health History (Including but not limited to): Past Medical History: Diagnosis Date Activity, other involving cardiorespiratory exercise Noted 12/02/2024: active in general, has kids, walking, can climb 1-2 FOS w/ no SOB ADHD (attention deficit hyperactivity disorder) Noted 12/02/2024: tx w/ meds Anxiety Noted 12/02/2024: tx w/ PRN meds, controlled Cyst of left ovary Noted 12/02/2024: Depression Noted 12/02/2024: controlled w/ meds Dysmenorrhea Noted 12/02/2024: Exercise involving housework Noted 12/02/2024: GERD (gastroesophageal reflux disease) Noted 12/02/2024: no meds, can lie flat History of general anesthesia Noted 12/02/2024: Nausea Low vitamin D level Noted 12/02/2024: Nausea & vomiting Noted 12/02/2024: nausea Pain Noted 12/02/2024: ovary PCOS (polycystic ovarian syndrome) Noted 12/02/2024: tx w/ Metformin RA (rheumatoid arthritis) ([facility]) Noted 12/02/2024: possible new diagnosis Rubella non-immune status, antepartum 11/18/2019 Give pp Sleep disorder 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 Patient was instructed to continue medication unless new instructions are given. 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 Unidentified voicemail was reached, I asked for a return call to my direct line today or Riya Pat's after today so these instructions can be given. Liz Michael DNP 12/03/24, 13:14: Max Meadows returned my call, I advised she hold the Metformin DOS. She verbalized understanding. KATHY Duenas documented in this encounter Plan of Treatment Upcoming Encounters Date Type Department Care Team (Late st Contact Info) Description 12/11/2024 9:25 EST Hospital Encounter [facility] OR [address] [place] [address] [phone] Celeste Cooper MD [address] [place] [address] [address] [place] [phone] 12/11/2024 9:25 EST - 12/11/2024 11:40 EST Surgery [facility] OR [address] [place] [address] [phone] Celeste Cooper MD [address] [place] [address] [address] [place] [phone] Laparoscopic left ovarian cystectomy [31498 (CPT??)] 12/31/2024 16:15 EST Post-op Visit [facility] OBGYN Services - [address] [phone] Jessika Upton MD [address] [place] [phone] 02/06/2025 13:10 EDT Appointment [facility] OBGYN Services - [address] [address] 03/05/2025 8:40 EDT Office Visit [facility] Rheumatology & Immunology - [address] [address] Nikolay Elizabeth MD [address] [place] [address] Scheduled Procedures Name Priority Associated Diagnoses Date/Ti me LAPAROSCOPY, WITH EXCISION O R FULGURATION OF LESIONS OF OVARY, PELVIC VISCERA, OR PERITONEAL SURFACE Cyst of left ovary 12/11/2024 9:25 EST documented as of this encounter Visit Diagnoses Not on filedocumented in this encounter Care Teams Supervisor Vat House Relationship Specialty Start Date End Date Kalyani Douglas MD [address] [place] [phone] PCP - General Family Medicine - Primary Care 03/27/24 Liz Aguilar DO [address] [place] [address] [address] [place] [address] Family Medicine - Primary Care 03/27/24 documented as of this encounter
--- OUTSIDE RECORDS SUMMARY | 2024-12-08 15:29 | XMS_ITS | Encounter Summary ---
Author Organization [facility] Address [address] [place] [address] Care Team Providers Care Merchandising Execution Associate Name Role Phone Liz Aguilar Primary Care Provider [phone] Reason for Visit * Reason Comments Medication Reaction Patient reports emily osorio Mucinex at 0700 and 1300 on 12/22, currently also taking Vyvance and thinks she is having reaction. Symptoms include extreme dissociation, feeling low BP when standing, chills, irritated skin, body aches. Cold symptom since yesterday. Also takes Metformin and Spirnolactone. Encounter Details Date Type Department Care Team (Late st Contact Info) Description 12/23/2022 0:56 EST - 12/23/2022 3:55 EST Emergency [facility] Emergency Department - [address] [phone] Ventura Phillips DO [address] [place] [address], [address] [place] [address] Adverse drug interaction with prescription medication (Primary Dx) Discharge Disposition: Home or Self Care Social [...] place to sleep or slept in a alf (including now)? No 10/18/2022 Interpersonal Safety Answer [...] 0:53 EST documented as of this encounter Last Filed Vital Signs Vital Sign Reading Time Taken Comments Blood Pressure 113/72 12/23/2022 0125 EST Pulse 113 12/23/2022 005 EST Temperature 37.4 ??C (99.3 ??F) 12/23/2022 005 EST Respiratory Rate 15 12/23/2022 012 EST Oxygen Saturation 97% 12/23/2022 012 EST Inhaled Oxygen Concentration - - Weight 56.2 kg (124 lb) 12/23/202251 EST Height 157.5 cm (5' 2) 12/23/2022 005 EST Body Mass Index 22.68 12/23/2022 005 EST documented in this encounter Functional Status [...] this encounter Discharge Instructions * Discharge Instructions* Ventura Phillips DO - 12/23/2022 2:48 EST Your evaluated in the emergency department today with symptoms that are likely related to an interaction between medications. As we discussed, we suspect that the dextromethorphan (medication) contained within the Mucinex likely interacted with your Vyvanse. This can cause a mild increase in levelsof serotonin in your body. We suspect this was likely contributing to your symptoms today. As we dis cussed, we do not believe this is a life-threatening or serious interaction that you had today. Please do not take any medications containing dextromethorphan while also taking Vyvanse. Please pay close attention to labels on lccf-wdb-cobptix medications. As we discussed, if you develop any worsening symptoms including any worsening shakiness, fever, stiffness of your arms or legs, vomiting, altered mental status, difficulty urinating, sweating, or any other concerning symptoms, please return right away to the emergency department for repeat evaluation. Please follow-up with your primary caredoctor for repeat evaluation. * Attachments The following attachments cannot be sent through Care Everywhere. * Medication Side Effects (Romanian) documented in this encounter Medications at Time of Discharge fexofenadine (MARTHA) 60 mg tablet Take 1 Tablet by mouth as needed. ibuprofen (MOTRIN) 400 mg tablet Take 1 Tab by mouth every 4 hours as needed for Pain. 02/02/2020 lisdexamfetamine (VYVANSE) 30 mg capsuleIndications:A ttention deficit hyperactivity disorder (ADHD), predominantly inattentive type Take 1 capsule by mouth every morning. Daily Max: 30 mg 28 capsule 09/19/2022 LORazepam (ATIVAN) 0.5 mg tablet Take 1 Tab by mouth at bedtime as needed for Anxiety. Daily Max: 0.5 mg 15 Tab 1 11/18/2020 ondansetron (ZOFRAN-ODT) 4 mg disintegrating tabletIndications:Na usea TAKE 1 TABLET BY MOUTH EVERY 8 HOURS NEEDED FOR NAUSEA 12 Tablet 3 05/31/2022 spironolactone (ALDACTONE) 50 mg tablet Take 1 Tablet by mouth every morning. 07/08/2022 documented as of this encounter Discharge Disposition Disposition Code Departure Means Destination Home or Self Shelter documented in this encounter ED Notes * Ventura Phillips DO - 12/23/2022 0138 EST Emergency Department Visit This documentation is recorded by French Shahid acting as Scribe under the direction and presence of Ventura Phillips DO. Ventura Phillips DO: I personally performed the services recorded by the scribe in my presence. Iconfirm the scribe's documentation has been reviewed by me to accurately and completely record my work, treatment, procedures, and medical decision making. Medical Decision Making 27 year old F with PMHx anxiety presents to ED today with concerns regarding headache, feeling off, weakness, general restlessness. On examination she appears well. She is mildly tachycardic, however is normal cardiopulmonary examination otherwise, abdomen is soft and nontender. She has normal DTRs at L4 bilaterally, 1+, no evidence of myoclonus or rigidity. No nystagmus or focal neurologic deficits. Not hyperthermic. Differential diagnosis includes serotonin syndrome however given absence ofmyoclonus or hyperreflexia suspect this is less likely, doubt NMS, given absence of fever, rigidity. No infectious symptoms otherwise other than her mild cold symptoms. I spoke with poison control who suspect she likely has a mild serotonergic reaction from her amphetamine and dextromethorphan contained within the Mucinex. Given the 3 doses of 20 mg of dextromethorphan they do not believe this radames a serious interaction, however do recommend administration of Ativan and fluid. Will obtain EKG,CBC, metabolic panel, UA/, will administer 1 mg Ativan and fluids Patient had an EKG performed upon arrival to the ED which was reviewed and interpreted by myself. (Sinus tachycardia at 104 bpm, nonspecific ST flattening in anterolateral leads with T-wave inversionpredominantly in the lateral leads, no ST elevation or new ischemic changes noted compared to priorEKGs.). Patient had labs that were reviewed independently by myself, significant for unremarkable labs including negative viral swabs. 0332: Patient reports that she feels improved following treatment with IV lorazepam, ketorolac, and0.9% saline. Advised patient to read label carefully in order to avoid dextromethorphan in future. Patient reports that she has been able to ambulate independently. She states that she has family whocan continue to monitor her at home. On exam, the patient's reflexes are normal. Suspect she likelyhad mild increase serotonin however certainly not serotonin syndrome based on her examination and vital signs. Her tachycardia has resolved and she is feeling significantly better after single dose of Ativan. Instructed to follow close with primary care and avoid dextromethorphan containing substances in the setting of underlying Vyvanse use. Return precautions provided At this time, the patient was stable for discharge home. Prior to discharge usual and customary precautions were reviewed with the patient and/or family including follow-up instructions and reasons to return to the Emergency Department if condition worsens, does not improve as expected, or other new concerns arise. An EKG was obtained and independently interpreted. Laboratory data was reviewed and independently interpreted. } Final diagnoses: Adverse drug interaction with prescription medication Disposition: Discharged Chief complaint: Chief Complaint Patient presents with ??? Medication Reaction Patient reports taking Mucinex at 0700 and 1300 on 12/22, currently also taking Vyvance and thinks she is having reaction. Symptoms include extreme dissociation, feeling low BP when standing, chills, irritated skin, body aches. Cold symptom since yesterday. Also takes Metformin and Spirnolactone. RHINA Coates is a 27 y.o. female with a history of anxiety who presents to the ED for a suspected medication reaction. The patient reports that she started taking Mucinex Fast-Max Cold-Flu last night for cold symptoms. She took another Mucinex this morning at 0700 alongside her other regular medications (including 30 mg Vyvanse, 50 mg spironolactone, and metformin). The patient reports that vivian campos began to feel as though she was dissociating this morning. She states that she took another Mucinex at 1300 and developed generalized malaise, trailing vision, and cloudy thoughts less than an hour later. The patient reports that she went to run errands and began to feel as though she might pass out while shopping. She also endorses subjective fever and tunnel vision. By 1830, the patient describes progressively worsening body aches, headache, nausea, and sensation of skin irritation. Shestates that she feels as though she has been drugged. The patient reports that she cannot stand up or ambulate without feeling like she might pass out. She denies vomiting. The patient endorses generalized weakness but denies unilateral extremity weakness. She states that she has had reduced appetite due to nausea but has been eating and drinking normally. The patient endorses fever to a maximum of 101 F. She reports that she sometimes has headaches when menstruating but that her current headache is more severe. The patient denies alcohol or other drug use. She states that she has been takingher medications as directed. The patient denies taking any pain medication prior to arrival. She denies other medical problems and states that she had previously been managing her cold symptoms well.The patient reports that the maximum number of Mucinex doses she can take in a 24 hour period is 6 and that she has only had 3 in that period. History was provided by: Patient and medical record Patient's pertinent PMH, FH, SH were reviewed and edited as necessary. Physical Exam BP 113/72 Pulse (!) 113 Temp 37.4 ??C (99.3 ??F) (Oral) Resp 15 Ht 157.5 cm (62) Wt 56.2kg (124 lb) SpO2 97% BMI 22.68 kg/m?? A medical screening exam was performed. Physical Exam Constitutional: Patient is oriented to person, place, and time. Appears well- developed and well-nourished. No distress. HENT: Head: Normocephalic and atraumatic. Mouth/Throat: Oropharynx is clear and moist. Eyes: Pupils are equal, round, and reactive to light. Conjunctivae and EOM are normal. No nystagmus. Neck: Normal range of motion. Neck supple. Cardiovascular: Normal rate, regular rhythm, normal heart sounds and intact distal pulses. No murmurs, rubs, or gallops. Pulmonary/Chest: Breath sounds clear to auscultation bilaterally. No respiratory distress. No wheezes. Abdominal: Soft. Nontender, nondistended. No rebound, guarding, or rigidity. Musculoskeletal: Normal range of motion. Exhibits no edema or tenderness. Neurological: Patient alert and oriented to person, place, and time. Full strength of the B/L upperextremities and lower extremities. No focal cranial nerve deficits. No myoclonus. Deep tendon reflexes 1+ bilaterally. No ataxia. Normal dmxauy-vd-tyfi exam. Skin: Skin is warm and dry. Capillary refill takes less than 2 seconds. No rashes. Psychiatric: normal mood and affect. behavior is normal. Procedures Procedures documented in this encounter Plan of Treatment Upcoming Encounters Date Type Department Care Team (Late st Contact Info) Description 12/11/2024 9:25 EST Hospital Encounter [facility] OR [address] [place] [address] [phone] Celeste Cooper MD [address] [place] [address] [address] [place] [phone] 12/11/2024 9:25 EST - 12/11/2024 11:40 EST Surgery [facility] OR [address] [place] [address] [phone] Celeste Cooper MD [address] [place] [phone] Laparoscopic left ovarian cystectomy [69421 (CPT??)] 12/31/2024 16:15 EST Post-op Visit [facility] OBGYN Services - [address] [phone] Jessika Upton MD [address] [place] [phone] 02/06/2025 13:10 EDT Appointment [facility] OBGYN Services - [address] [phone] 03/05/2025 8:40 EDT Office Visit [facility] Rheumatology & Immunology - [address] [phone] Nikolay Elizabeth MD MPH [address] [place] [address] 5 [place] [phone] Scheduled Procedures Name Priority Associated Diagnoses Date/Ti me LAPAROSCOPY, WITH EXCISION O R FULGURATION OF LESIONS OF OVARY, PELVIC VISCERA, OR PERITONEAL SURFACE Cyst of left ovary 12/11/2024 9:25 EST documented as of this encounter Procedures Procedure Name Priority Date/Time Associated Diagnosis Comments ECG REPORT - SCANNED 01/09/2023 10:34 EST URINE CHEMICAL (DIP) & SEDIMENT (MICRO) WITH REFLEX TO CULTURE STAT 12/23/2022 2:33 EST TEST, URINE STAT 12/23/2022 2:33 EST EKG 12-LEAD STAT 12/23/2022 2:14 EST COMPLETE BLOOD COUNT AND DIFFERENTIAL STAT 12/23/2022 1:55 EST COMPREHENSIVE METABOLIC PANEL (CMP) STAT 12/23/2022 1:55 EST ZZCOVID-19 TEST [facility] PCR STAT 12/23/2022 0:55 EST COVID-19 TESTING STAT 12/23/2022 0:55 EST ZZHN INFLUENZA A AND B, RSV PCR STAT 12/23/2022 0:55 EST documented in this encounter Results * ECG REPORT - SCANNED (01/09/2023 10:34 EST) 01/09/2023 10:3 4 EST us Scan 2 Sales And Marketing Vice President PROCEDURE/MINOR SURGICAL OR DERABLES Final Result * TEST, URINE (12/23/2022 2:33 EST) Test, Urine Negative Negative 12/23/2022 3:02 EST [facility] Comment:False negative resul ts may occur in women who are beyond 5-8 weeks gestation. Diagnosis of should be based on a correlation of test results with typical clinical signs and symptoms. Urine URINE SPECIMEN COLLECTION, CLEAN CATCH / Unknown Urine Collect / Unknown 12/23/2022 2:33 EST 12/23/2022 2:52 EST Ventura Phillips DO URINALYSIS ORDERABLES Final Result [facility] [address] [place] [address] * (ABNORMAL) URINE CHEMICAL (DIP) & SEDIMENT (MICRO) WITH REFLEX TO CULTURE (12/23/2022 2:33 EST) Color UA Colorless Colorless, Yellow 12/23/2022 3:10 [facility] Clarity UA Clear Clear 12/23/2022 3:10 [facility] Glucose UA Negative Negative 12/23/2022 3:10 [facility] Bilirubin UA Negative Negative 12/23/2022 3:10 [facility] Ketones UA Negative Negative 12/23/2022 3:10 [facility] Specific [place], Urine 1.004 1.001 - 1.035 12/23/2022 3:10 [facility] Blood UA Negative Negative 12/23/2022 3:10 [facility] Urobilinogen UA Normal Normal mg/dL 023 3:10 [facility] Nitrite UA Negative Negative 12/23/2022 3:10 [facility] Leukocyte Esterase UA Negative Negative 12/23/2022 3:10 [facility] Protein UA Negative Negative 12/23/2022 3:10 [facility] pH, UA 7.0 4.6 - 8.0 12/23/2022 3:10 [facility] Urine RBC Count, Auto 0 - 2 0 - 2 Cells/HPF 12/23/2022 3:10 [facility] Urine WBC Count, Auto 0 - 3 0 - 3 Cells/HPF 12/23/2022 3:10 [facility] Urine Squamous Count, Auto Few(A) None Seen Cells/HPF 12/23/2022 3:10 [facility] Urine Hyaline Cast Count, Auto <=10 <=10 Casts/LPF 12/23/2022 3:10 [facility] Urine Bacteria Count, Auto None Seen None Seen Bacteria/HPF 12/23/2022 3:10 EST [facility] Urine URINE SPECIMEN COLLECTION, CLEAN CATCH / Unknown Urine Collect / Unknown 12/23/2022 2:33 EST 12/23/2022 2:52 EST Narrative [facility] - 12/23/2022 3:10 EST NOTE: Reflex to Urine Culture test is not indicated based on Urine Sediment Analysis results. Urine Sediment Analysis results are unreliable on urines that are unrefrigerated for >2 hrs or refrigerated >8 hrs. Ventura Phillips DO URINALYSIS ORDERABLES Final Result [facility] [address] [place] [address] * EKG 12-LEAD (12/23/2022 2:14 EST) 12/23/2022 2:14 EST Narrative [facility] - 01/09/2023 10:31 EST ?[facility] Emergency ? Test Date: ?2022-12-23 Pat Name: ? [facility] ? Department: ?? ED ? Room: ? GT22 Gender: ? Female ? Geotechnicial Properties Technician: ?? : ?1995 ? Requested By: MECHELLE Bañuelos Order Number: [id number] ? Reading : ?? EVGENY TENORIO ? Measurements Intervals ?[place] ? Rate: ? 104 ?P: ?60 AL: ? 144 ?QRS: ?30 QRSD: ? 78 ? T: ?60 QT: ? 310 ? QTc: ?409 ? Interpretive Statements SINUS TACHYCARDIA LOW QRS VOLTAGE IN PRECORDIAL LEADS ??[QRS DEFLECTION < 1.0 mV IN CHEST LEADS] NONSPECIFIC T-WAVE ABNORMALITY ABNORMAL RHYTHM ECG Automated Interpretation. ??Provider Interpretation to follow. Compared to ECG 12/22/2019 17:45:14 Low QRS voltage now present T-wave abnormality still present I reviewed the tracing and have either agreed or edited the findings in this report. Electronically Signed On 01-09-2023 10:31:03 EST by EVGENY TENORIO. Procedure Note Evgeny Tenorio MD - 01/09/2023 [facility] Emergency Test Date: 2022-12-23 Pat Name: ANASTASIIA COATES Department: ED Room: GT22 Gender: Female Geotechnicial Properties Technician: : 1995 Requested By: MECHELLE Bañuelos Order Number: [id number] Reading MD: EVGENY TENORIO Measurements Intervals [place] Rate: 104 P: 60 AL: 144 QRS: 30 QRSD: 78 T: 60 QT: 310 QTc: 409 Interpretive Statements SINUS TACHYCARDIA LOW QRS VOLTAGE IN PRECORDIAL LEADS [QRS DEFLECTION < 1.0 mV IN CHESTLEADS] NONSPECIFIC T-WAVE ABNORMALITY ABNORMAL RHYTHM ECG Automated Interpretation. Provider Interpretation to follow. Compared to ECG 12/22/2019 17:45:14 Low QRS voltage now present T-wave abnormality still present I reviewed the tracing and have either agreed or edited the findings inthis report. Electronically Signed On 01-09-2023 10:31:03 EST by ASHLEY. Ventura Phillips DO CARDIAC ECG ORDERABLES Final Result [facility] * (ABNORMAL) COMPREHENSIVE METABOLIC PANEL (CMP) (12/23/2022 1:55 EST) Sodium 138 136 - 145 mmol/L 12/23/2022 2:29 [facility] Potassium 3.9 3.5 - 5.0 mmol/L 12/23/2022 2:29 [facility] Chloride 107 96 - 110 mmol/L 12/23/2022 2:29 [facility] CO2 Total 21(L) 22 - 32 mmol/L 12/23/2022 2:29 [facility] Glucose 110(H) 70 - 100 mg/dL 12/23/2022 2:29 [facility] BUN 12 10 - 26 mg/dL 12/23/2022 2:29 [facility] Creatinine 0.58 0.52 - 1.04 mg/dL 12/23/2022 2:29 [facility] eGFR 128 >60 mL/min/1.7 3m2 12/23/2022 2:29 [facility] Total Protein 7.6 6.3 - 8.2 g/dL 12/23/2022 2:29 [facility] Albumin 4.7 3.4 - 4.9 g/dL 12/23/2022 2:29 [facility] Alkaline Phosphatase 49 38 - 126 U/L 12/23/2022 2:29 [facility] AST 21 15 - 46 U/L 12/23/2022 2:29 [facility] ALT 17 <35 U/L 12/23/2022 2:29 [facility] Bilirubin, Total <0.5 <1.4 mg/dL 12/23/19 2:29 [facility] Calcium 9.4 8.5 - 10.5 mg/dL 12/23/2022 2:29 [facility] Albumin/Globulin Ratio 1.6 1.0 - 2.5 12/23/2022 2:29 [facility] Anion Gap 10 5 - 14 12/23/2022 2:29 [facility] Blood VENOUS BLOOD / Unknown Venipuncture / Unknown 12/23/2022 1:55 EST 12/23/2022 2:09 EST Ventura Phillips DO CHEMISTRY & BLOOD GAS ORDERA BLES Final Result [facility] [address] [place] [address] * (ABNORMAL) COMPLETE BLOOD COUNT AND DIFFERENTIAL (12/23/2022 1:55 EST) WBC 11.78 4.00 - 12.40 K/cmm 12/23/2022 2:16 [facility] RBC 4.45 3.86 - 5.04 M/cmm 12/23/2022 2:16 [facility] Hemoglobin 12.5 11.6 - 15.2 gm/dL 12/23/2022 2:16 [facility] HCT 36.6 34.9 - 44.4 % 12/23/2022 2:16 [facility] MCV 82 81 - 98 fl 12/23/2022 2:16 [facility] MCH 28.1 26.7 - 33.3 pg 12/23/2022 2:16 [facility] MCHC 34.2 32.1 - 35.9 gm/dL 12/23/2022 2:16 [facility] RDW-CV 12.4 <14.7 % 12/23/2022 2:16 [facility] RDW-SD 37.6 <50.4 fl 12/23/2022 2:16 [facility] PLT 208 141 - 377 K/cmm 12/23/2022 2:16 [facility] MPV 10.6 9.5 - 12.7 fl 12/23/2022 2:16 [facility] % Neutrophils 86.3 % 12/23/2022 2:16 [facility] % Lymphocytes 6.2 % 12/23/2022 2:16 [facility] % Monocytes 6.1 % 12/23/2022 2:16 [facility] % Eosinophils 0.8 % 12/23/2022 2:16 [facility] % Basophils 0.3 % 12/23/2022 2:16 [facility] % Immature Grans 0.3 % 12/23/19 2:16 [facility] Absolute Neutrophils 10.15(H) 2.20 - 8.85 K/cmm 12/23/2022 2:16 [facility] Absolute Lymphocytes 0.73(L) 1.09 - 3.30 K/cmm 12/23/2022 2:16 [facility] Absolute Monocytes 0.72 0.10 - 0.80 K/cmm 12/23/2022 2:16 [facility] Absolute Eosinophils 0.10 0.03 - 0.61 K/cmm 12/23/2022 2:16 [facility] ABS Basophils 0.04 0.01 - 0.11 K/cmm 12/23/2022 2:16 [facility] Absolute Immature Grans 0.04 0.00 - 0.06 K/cmm 12/23/2022 2:16 EST [facility] Type of Differential: Auto 12/23/2022 2:16 EST [facility] Blood VENOUS BLOOD / Unknown Venipuncture / Unknown 12/23/2022 1:55 EST 12/23/2022 2:09 EST us Ventura Phillips DO PACKAGES & DNA PROBE ORDERAB LES Final Result Performing Organization Address City/[facility]/ZIP Co de Phone Number [facility] [address] [place] [address] * COVID-19 TEST [facility] PCR (12/23/2022 0:55 EST) Swab ENTIRE NASOPHARYNX / Unknown Swab / Unknown 12/23/2022 0:55 EST 12/23/2022 1:00 EST us Ventura Phillips DO MICROBIOLOGY - GENERAL ORDER JAD Final Result Performing Organization Address [facility] Co de Phone Number [facility] [address] [place] [address] * COVID-19 TESTING (12/23/2022 0:55 EST) Pathologist [facility] COVID-19 rt-PCR Result Negative Negative 12/23/2022 1:42 EST [facility] Performing Lab GeneXpert [facility] 12/23/2022 1:42 EST [facility] Swab ENTIRE NASOPHARYNX / Unknown Swab / Unknown 12/23/2022 0:55 EST 12/23/2022 1:00 EST us Ventura Phillips DO MICROBIOLOGY - GENERAL ORDER JAD Final Result Performing Organization Address [facility] Co de Phone Number [facility] [address] [place] [address] * INFLUENZA A AND B,RSV PCR (12/23/2022 0:55 EST) FLU A RNA Result (FLARES) Negative Negative 12/23/2022 1:42 EST [facility] FLU B RNA Result (FLBRES) Negative Negative 12/23/2022 1:42 EST [facility] [facility] RSV RNA Result (RSVRES) Negative Negative 12/23/2022 1:42 EST [facility] Swab ENTIRE NASOPHARYNX / Unknown Swab / Unknown 12/23/2022 0:55 EST 12/23/2022 1:00 EST Ventura Phillips DO MICROBIOLOGY - GENERAL ORDER JAD Final Result [facility] [address] [place] [address] documented in this encounter Visit Diagnoses Diagnosis Adverse drug interaction with prescription medication- Primary Cyst of left ovary Other and unspecified ovarian cyst documented in this encounter Administered Medications Inactive Administered Medications - up to 3 most recent administrations Medication Order MAR Action Action Date Dose Rate Site ketOROLAC (TORADOL) injection 15 mg 15 mg, intravenous, NOW X1, 1 dose, On Mon12/23/22 at 0200, STAT Given 12/23/2022 2:19 EST 15 mg LORazepam (ATIVAN) injection 1 mg 1 mg, intravenous, NOW X1, 1 dose, On Mon12/23/22 at 0215, STAT Given 12/23/2022 2:25 EST 1 mg sodium chloride 0.9 % BOLUS 1,000 mL 1,000 mL, intravenous, NOW X1, 1 dose, On Mon12/23/22 at 0200, STAT New Bag 12/23/2022 2:19 EST 1,000 mL documented in this encounter Active and Recently Administered Medications Times are shown in EST. Scheduled Medication Order 12/21/2022 12/22/2022 12/23/2022 ketOROLAC (TORADOL) injection 15 mg (COMPLETED) 15 mg, intravenous, NOW X1, 1 dose, On Mon12/23/22 at 0200, STAT 0219 (Given - Provid er: Griselda Oliva RN) LORazepam (ATIVAN) injection 1 mg (COMPLETED) 1 mg, intravenous, NOW X1, 1 dose, On Mon12/23/22 at 0215, STAT 0225 (Given - Provid er: Griselda Oliva RN) sodium chloride 0.9 % BOLUS 1,000 mL (COMPLETED) 1,000 mL, intravenous, NOW X1, 1 dose, On Mon12/23/22 at 0200, STAT 0219 (New Bag - Prov ider: Griselda Oliva RN)0354 (IV Stopped - Provider: Griselda Oliva RN) documented in this encounter Additional Health Concerns Infection Onset Date Last Indicated Resolved Time R/O COVID-19 12/23/2022 12/23/2022 12/23/2022 1:42 EST documented as of this encounter Care Teams Merchandising Execution Associate Relationship Specialty Start Date End Date Liz Aguilar DO [address] [place] [address] PCP - General Family Medicine - Primary Care 11/27/22 03/26/24 documented as of this encounter
--- OUTSIDE RECORDS SUMMARY | 2024-12-08 15:29 | XMS_ITS | Encounter Summary ---
Author Organization [facility] Address [address] [place] [address] Care Team Providers Care Assistant Producer Name Role Phone Kalyani Douglas MD Primary Care Provider [phone] Liz Aguilar Mikayla DO Unavailable [phone] Reason for Visit * Reason Comments Follow-up Encounter Details Date Type Department Care Team (Late st Contact Info) Description 12/04/2024 8:40 EST Office Visit [facility] Rheumatology & Immunology - [address] [phone] Nikolay Elizabeth MD MPH [address] [facility], Level [address] [place] [address] Inflammatory arthritis (Primary Dx); Raynaud's disease without gangrene; SOCORRO positive Social History Tobacco Use Types Packs/Day Years [...] (96.6 ??F) 12/04/2024 0837 EST Respiratory Rate - - Oxygen Saturation - [...] Patient Instructions* Nikolay Elizabeth MD MPH - 12/04/2024 8:40 EST Images from the original note were not included. Will start on HCQ Follow up in three months HYDROXYCHLOROQUINE (PLAQUENIL) - Patient Fact Sheet WHAT IS IT? Hydroxychloroquine (Plaquenil) is considered a disease-modifying anti-rheumatic drug (DMARD). It can decrease the pain and swelling of arthritis, prevent joint damage and reduce the risk of long-termdisability. Hydroxychloroquine is in a class of medications that was first used to prevent and treat malaria. Today, it is used to treat rheumatoid arthritis, some symptoms of lupus, childhood arthrit is (also known as juvenile idiopathic arthritis) and other autoimmune diseases. It is not clear whyhydroxychloroquine is effective at treating autoimmune diseases. It is believed that hydroxychloroquine interferes with communication of cells in the immune system. HOW TO TAKE IT Hydroxychloroquine comes in an oral tablet. Adult dosing ranges from 200mg or 400mg per day (5 mg per kg of actual body weight). In some cases, higher doses can be used. It is recommended one tablet twice daily if taking more than one tablet. It is also recommended to be taken with food. Symptoms can start to improve in one to two months, but it may take up to six months before full benefits of this medication are experienced. SIDE EFFECTS Hydroxychloroquine typically is very well tolerated. Serious side effects are rare. The most commonside effects are nausea and diarrhea, which often improve with time. Less common side effects include rash, changes in skin pigment (such as darkening or dark spots), hair changes, and muscle weakness. Rarely, hydroxychloroquine can lead to anemia in some individuals. This can happen in individualswith a condition known as G6PD deficiency or porphyria. In rare cases, hydroxychloroquine can cause visual changes or loss of vision. Such vision problems are more likely to occur in individuals taking high doses for many years, in individuals 60 years orolder, or in those with significant kidney disease. At the recommended dose, development of visual problems due to the medication is rare. It is recommended that you have an eye exam within the firstyear of use, then repeat every 1 to 5 years based on current guidelines. TELL YOUR DOCTOR Although there are few drug interactions with hydroxychloroquine, to be safe be sure to tell your doctor about all of the medications you are taking, including [id number] drugs and natural remedies. Be sure to notify your other physicians when taking this drug. This drug does not have a strong effect on the immune system, so vaccines recommended by other physicians are generally acceptable. Notify your eye doctor when you are on this medication so regular visual screening tests can be performed. If you are , considering becoming , or lactating, please discuss this with your doctor before taking this medication. However, hydroxychloroquine has been shown to be safe during and breast feeding. ?? 2019 [employer] documented in this encounter Ordered Prescriptions Prescription Sig Dispense Quantity Refills Last Filled Start Date End Date hydroxychloroquin e (PLAQUENIL) 200 mg tabletIndications :Inflammatory arthritis Start hydroxychlorquine 200mg daily for 2-weeks. If tolerated may increase to 400mg daily. 90 Tablet 1 documented in this encounter Progress Notes * Nikolay Elizabeth MD MPH - 12/04/2024 0840 EST [facility] Rhe[facility]ology Clinic Follow-up Visit Date of Service: 12/04/2024 Patient ID Ulises Skelton Chief Compliant: Joint Pain, Raynaud's Pertinent Rheumatologic history and problem list: Joint pain, Raynaud's Subjective / HPI: Ms. Skelton is a 29-year-old female who comes to the rheumatology clinic for a follow up appointment. Labs done after NPA showed normal CBC, CMP, negative JACK panel. UA: No protein, no blood. Had arthralgias of hands, knees, elbows, wrist, shoulders. AM stiffness last for 30-60 minutes. AndRaynauds symptoms. Fingers and toes turn red and white on cold exposure. Interval history: Stable On assessment today: Feeling tired Joint pain involving shoulders and elbows Morning stiffness last for first two hours Due to pain of the shoulders and elbows patient has difficulty sleeping. Denies recent swollen, erythematous or warm joints. Takes Advil and tylenol which helps with the joint symptoms. Denies psoriasis, dactylitis, enthesitis or uveitis. Review of Systems: Denies fever, oral ulcers, dry mouth, chest pain, difficulty breathing. Vomiting, belly pain, blood in the stools. Occasional rashes like hives, dry eye uses eye drops, nausea, occasional diarrhea. Medications and allergies reviewed Problem list reviewed Past medical history and Past surgical history reviewed Objective: Physical Exam BP 99/64 (BP Cuff Location: Right arm, BP Patient Position: Sitting, BP Cuff Sizes: Adult, regular) Pulse 77 Temp 35.9 ??C (96.6 ??F) (Tympanic) LMP 11/16/2024 (Exact Date) General: No acute distress. Alert, fully oriented, pleasant, conversant. HEENT: Conjunctivae/corneas clear. Pupils equal, Sclerae anicteric. Mucus membranes moist; oropharynx clear. Neck supple, symmetrical, trachea midline Abdomen: Soft, non-tender, non-distended. No organomegaly. Bowel sounds present. Extremities: Extremities without cyanosis or edema. Skin: No rashes or lesions Musculoskeletal: Hand: No synovitis, muscle wasting or deformity. Full range of movement. Elbow: No tenderness on palpation of medial or lateral epicondyle. Normal range of motion. No nodules. Shoulder: No synovitis or swelling. Normal range of motion in shoulders bilaterally. Hip: No tenderness on palpation over anterior superior iliac crest, greater trochanter. Normal range of movement Knee: No asymmetry, muscle wasting, scars or deformities. No joint effusions or swellings. No tenderness on palpation of femoral epicondyle or tibial tuberosity. Foot: No tenderness on palpation of the ankles or MTP joint bilaterally. Normal range of movement. Investigations: I have independently reviewed labs / imaging Labs: Reviewed with the patient. Questionnaires: 12/04/2024 8:39 RAPID3 SCORES AND INTERPRETATION Functional Status 0.3 Pain Tolerance 2.5 Global Estimate 4 RAPID3 6.8 Interpretation Moderate RAPID3 Score: As documented by Nurses/MAs during this visit and reviewed by me. Assessment & Plan: 1. Inflammatory arthritis hydroxychloroquine (PLAQUENIL) 200 mg tablet 2. Raynaud's disease without gangrene 3. SOCORRO positive Will start on HCQ for inflammatory arthritis. Given patient's symptoms of joint pain, AM stiffness,positive SOCORRO. Test for RA (RF and anti CCP) have been negative. Discussed about eye monitoring with the patient while taking HCQ. Has an eye doctor and will make an appointment to see them. For Raynauds will recommend to keep hands and feet warm. For rash will continue to monitor the symptoms. Follow up in three months Nikolay Elizabeth MD MPH, 12/04/2024 8:49 I spent a total of 30 minutes on the date of this encounter meeting with the patient and reviewing documentation/coordinating care as described in the above note. documented in this encounter Plan of Treatment Upcoming Encounters Date Type Department Care Team (Late st Contact Info) Description 12/11/2024 9:25 EST Hospital Encounter [facility] [place] [address] [place] [address] Celeste Cooper MD [address] [facility], [facility], Level [address] [place] [phone] 12/11/2024 9:25 EST - 12/11/2024 11:40 EST Surgery [facility] [place] [address] [place] [phone] Celeste Cooper MD [address] [place] [address] [address] [place] [phone] Laparoscopic left ovarian cystectomy [23602 (CPT??)] 12/31/2024 16:15 EST Post-op Visit [facility] OBGYN Services [address] [phone] Jessika Upton MD [address] [place] [phone] 02/06/2025 13:10 EDT Appointment [facility] [address] [phone] 03/05/2025 8:40 EDT Office Visit [facility] Rheumatology & Immunology [address] [phone] Nikolay Elizabeth MD [address], [facility] [address] [place] [phone] Scheduled Procedures Name Priority Associated Diagnoses Date/Ti me LAPAROSCOPY, WITH EXCISION O R FULGURATION OF LESIONS OF OVARY, PELVIC VISCERA, OR PERITONEAL SURFACE Cyst of left ovary 12/11/2024 9:25 EST documented as of this encounter Visit Diagnoses Diagnosis Inflammatory arthritis- Primary Unspecified inflammatory polyarthropathy Raynaud's disease without gangrene SOCORRO positive Other and unspecified nonspecific immunological findings Cyst of left ovary Other and unspecified ovarian cyst documented in this encounter Care Teams Assistant Producer Relationship Specialty Start Date End Date Kalyani Douglas MD [address] [place] [address] PCP - General Family Medicine - Primary Care 03/27/24 Liz Aguilar DO [address] [place] [address] [address] [place] [address] Family Medicine - Primary Care 03/27/24 documented as of this encounter
--- OUTSIDE RECORDS SUMMARY | 2024-12-08 15:29 | XMS_ITS | Encounter Summary ---
Author Organization [facility] Address [address] [place] [address] Care Team Providers Care Director Adult Name Role Phone Kalyani Landeros DNP Primary Care Provider [phone] Reason for Visit * Reason Onset Date Comments Medications Refill 06/17/2022 Encounter Details Date Type Department Care Team (Late st Contact Info) Description 06/17/2022 Refill [facility] [address] [phone] Kalyani Landeros DNP [address] [place] [address] Medications Refill Social History Tobacco [...] morning. Daily Max: 30 mg 28 capsule 06/17/2022 2 documented in this encounter Miscellaneous Notes * Telephone Encounter - Samir Gardner MA - 06/17/2022 0902 EDT CSA printed and mailed. * Telephone Encounter - Kalyani Landeros NP - 06/17/2022 0842 EDT Rx sent, please complete and mail CSA for her to sign. * Telephone Encounter - Eloise Pineda, RN - 06/17/2022 0833 EDT MUNIR - 10/11/21 NOV - none last refill - 05/16/22, #28 for 28 days NR No CSA on file VPMS - last p/u 05/17/22, #28 OK to refill? * Telephone Encounter - Bel Jones - 06/17/2022 0812 EDT Pt calling for refill of: lisdexamfetamine (VYVANSE) 30 mg PT IS OUT [facility] documented in this encounter Plan of Treatment Upcoming Encounters Date Type Department Care Team (Late st Contact Info) Description 12/11/2024 9:25 EST Hospital Encounter [facility] [place] [address] [place] [address] Celeste Cooper MD [address] [place] [phone] 12/11/2024 9:25 EST - 12/11/2024 11:40 EST Surgery [facility] OR [address] [place] [phone] Celeste Cooper MD [address] [place] [phone] Laparoscopic left ovarian cystectomy [96845 (CPT??)] 12/31/2024 16:15 EST Post-op Visit [facility] OBGYN Services - [address] [address] Jessika Upton MD [address] [place] [address] [place] [phone] 02/06/2025 13:10 EDT Appointment [facility] Services [address] [address] 03/05/2025 8:40 EDT Office Visit [facility] Rheumatology & Immunology [address] [phone] Nikolay Elizabeth MD MPH [address] [facility], Level [address] [place] [phone] Scheduled Procedures Name Priority Associated Diagnoses Date/Ti [...] every morning. Daily Max: 30 mg Reorder 05/16/2022 06/17/2022 documented as of this encounter Care Teams Director Adult Relationship Specialty Start Date End Date Kalyani Landeros DNP [address] [place] [phone] PCP - General Family Medicine - Primary Care 11/05/20 11/26/22 documented as of this encounter
--- OUTSIDE RECORDS SUMMARY | 2024-12-08 15:29 | XMS_ITS | Encounter Summary ---
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) - Authorization Not Required Specialty Diagnoses / Procedures Referred By Contac t Referred To Contact Diagnoses Pelvic and perineal pain Procedures US PELVIS TRANSVAGINAL COMPLETE Kalyani Douglas MD [address] [place] [phone] Phone: tel: fax: [facility] TRAINER/[facility] Referral ID Status Reason Start Date Expiration Date Visits Requested Visits Authorized [id number] Authorization Not Required 08/15/2024 1 1 Reason for Visit * 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) - Authorization Not Required Specialty Diagnoses / Procedures Referred By Contac t Referred To Contact Diagnoses Pelvic and perineal pain Procedures US PELVIS TRANSVAGINAL COMPLETE Kalyani Douglas MD [address] [place] [address] Phone: tel: fax: [facility] TRA[employer] Referral ID Status Reason Start Date Expiration Date Visits Requested Visits Authorized [id number] Authorization Not Required 08/15/2024 1 1 Encounter Details Date Type Department Care Team (Latest Contact Info) Description 10/09/2024 14:34 EST - 10/09/2024 23:59 EST Hospital Encounter [facility] OBGYN Services - [address] [address] Pelvic and perineal pain Discharge Disposition: Home or Self Care Social [...] Code Departure Means Destination Home or Self Care documented in this encounter Plan of Treatment Upcoming Encounters Date Type Department Care Team (Late st Contact Info) Description 12/11/2024 9:25 EST Hospital Encounter [facility] OR [address] [place] [phone] Celeste Cooper MD [address] [place] [phone] 12/11/2024 9:25 EST - 12/11/2024 11:40 EST Surgery [facility] OR [address] [place] [phone] Celeste Cooper MD [address] [place] [phone] Laparoscopic left ovarian cystectomy [62284 (CPT??)] 12/31/2024 16:15 EST Post-op Visit [facility] OBGYN Services - [address] [phone] Jessika Upton MD [address] [place] [phone] 02/06/2025 13:10 EDT Appointment [facility] OBGYN Services - [address] [phone] 03/05/2025 8:40 EDT Office Visit [facility] Rheumatology & Immunology [address] [phone] Nikolay Elizabeth MD MPH [address] [facility], Level [address] [place] [address] Scheduled Procedures Name Priority Associated Diagnoses Date/Ti me LAPAROSCOPY, WITH EXCISION O R FULGURATION OF LESIONS OF OVARY, PELVIC VISCERA, OR PERITONEAL SURFACE Cyst of left ovary 12/11/2024 9:25 EST documented as of this encounter Procedures Procedure Name Priority Date/Time Associated Diagnosis Comments US PELVIS TRANSVAGINAL COMPLETE Routine 10/09/2024 14:48 EST Pelvic and perineal pain documented in this encounter Results * US PELVIS TRANSVAGINAL COMPLETE (10/09/2024 14:48 [...] View: Good view Impression ========= Transvaginal Pelvic -01282 The uterus is anteverted with a normal [...] View: Good view Impression ========= Transvaginal Pelvic -00521 The uterus is anteverted with a normal [...] OF SERVICE: 10/09/2024 us Kalyani Douglas MD [facility] [place] US OB ORDERABLES Final Res ult documented in this encounter Visit Diagnoses Diagnosis Pelvic and perineal pain Unspecified symptom associated with female genital organs Cyst of left ovary Other and unspecified ovarian cyst documented in this encounter Care Teams Drop Count Associate Relationship Specialty Start Date End Date Kalyani Douglas MD [address] [place] [phone] PCP - General Family Medicine - Primary Care 03/27/24 Liz Aguilar DO [address] [place] [address] [address] [place] [address] Family Medicine - Primary Care 03/27/24 documented as of this encounter
--- NOTE | 2024-12-08 15:30 | DI.RAD_ITS ---
Exam(s) XR FOOT LT COMPLETE XR ANKLE LT COMPLETE EXAM: XR ANKLE LT COMPLETE XR foot LT complete CLINICAL HISTORY: LT ankle bruising + pain s/p twisting injury TECHNIQUE: 2D digital imaging was performed of the left foot and ankle. Six images were obtained. AP, lateral and oblique views were obtained. COMPARISON: There are no priors for comparison. FINDINGS: BONES: No acute fracture is present. No bony destructive lesion is seen. There is an accessory ossicl e adjacent to the navicular. JOINTS:The ankle mortise is normally aligned. The joints in the feet are well maintained. SOFT TISSUE: Normal. IMPRESSION: No acute fracture or dislocation. DATA REPOSITORY: RADIATION DOSE DELIVERED:
--- OUTSIDE RECORDS SUMMARY | 2024-12-08 15:30 | XMS_ITS | Encounter Summary ---
Author Organization [facility] Address [address] [place] [address] Care Team Providers Care Color Control Operator Name Role Phone Kalyani Landeros KATHY Primary Care Provider [phone] Reason for Visit * Reason Comments Follow-up Encounter Details Date Type Department Care Team (Late st Contact Info) Description 05/18/2021 15:45 EDT Office Visit [facility] OBGYN Services - [address] [address] Maryjo Quiñones MD Abnormal uterine bleeding (Primary Dx) Social History Tobacco Use Types [...] Sign Reading Time Taken Comments Blood Pressure 100/60 05/18/2021 1555 EDT Pulse - - Temperature - - Respiratory [...] documented in this encounter Progress Notes * Maryjo Quiñones MD - 05/18/2021 6575 EDT Department of Obstetrics & Gynecology [facility] Clinic Visit Date of Visit: 05/18/2021 CC: Follow up for AUB and decreased libido S: Ulises Duffy is a 26 y.o. who presents to clinic today for follow up after being seen on 02/15 in clinic. See note in [facility]. At that time, our conversation centered on her abnormal uterine bleeding (had essentially not had a menses for several months), new onset stabbing pains, low libido, and dyspareunia. Had normal laboratory workup before being seen by our clinic. Multiple negative tests. We planned to interrogate her HPO axis by pursuing progestin withdrawal bleed.We also ordered a TVUS, though she was unable to complete that. AUB: Took Provera 10mg daily x 10 days but did not have a sufficient withdrawal bleed - had some spotting and has now had fully dysfunctional bleeding, where she says she spots for a few days then had nothing for 40+ days, then more spotting. Pelvic pain: Random, stabbing pains. Happen at any time near pubic symphysis. Feels like pain from previous ovarian cysts. Still ongoing. Libido: Remains low. Dyspareunia: Improved. Has some discomfort when she notices libido is low. Meds: Just stopped taking Vyvanse and Strattera. - Currently on nothing, zofran PRN; reports taking zofran up to once weekly Bowel movements: Pretty regular; every other day, does struggle with constipation. O: BP 100/60 (BP Cuff Location: Left arm, BP Patient Position: Sitting, BP Cuff Sizes: Adult, regular) Gen: NAD Labs: 02/02/2021 PRL 7.4 FSH 6.6 Estradiol 43 TSH 1.38 A/P: [place] Mikayla Duffy is a 26 y.o. with abnormal uterine bleeding and pelvic floor dysfunction. #AUB - TVUS, need to schedule - Did not respond to withdrawal bleed - Can consider KIRILL consult after TVUS #Constipation - Bowel regimen; Benefiber or Miralax Daily #Dyspareunia/Libido - Continue lubrication as needed - We discussed patient's goals: she wants to be able to engage with her partner and feel aroused. She says things that used to turn her on don't anymore. We discussed whether or not she has had motivation to pursue solo activity, but she reports no, she has also not been interested in that either. Suggested keeping a journal of sorts to keep track of things that do increase her libido. Also enco uraged general sexual well being and interest, be it alone or with her partner, and that there is no stigma in choosing to reset individually. Offered counseling services, as I'm sure we could connect her to someone in the [facility], who could offer sex therapy. She declined at this time and w ants to do some personal work first. Patient also has been undergoing several medication changes for her ADHD/mood. Has a history of success with bupropion. - Consider Psych referral if patient has ongoing issues for evaluation of medications and decreasedlibido as side effect RTC in 3 months Discussed with MD Unurly. Maryjo Quiñones MD PGY-4, TITLE EXAMINER Pager [phone] 05/18/2021 16:26 * Parish Fung MD - 05/18/2021 3895 EDT I have reviewed the record and I have discussed this patient's care with the resident. I agree withthe assessment and plan as stated in the note. documented in this encounter Plan of Treatment Upcoming Encounters Date Type Department Care Team (Late st Contact Info) Description 12/11/2024 9:25 EST Hospital Encounter [facility] OR [address] [place] [address] [phone] Celeste Cooper MD [address] [place] [address] 4 [place] [phone] 12/11/2024 9:25 EST - 12/11/2024 11:40 EST Surgery [facility] OR [address] [place] [address] [phone] Celeste Cooper MD [address] [place] [address] 4 [place] [phone] Laparoscopic left ovarian cystectomy [15295 (CPT??)] 12/31/2024 16:15 EST Post-op Visit [facility] OBGYN Services - [address] [address] Jessika Upton MD [address] [place] [phone] 02/06/2025 13:10 EDT Appointment [facility] OBGYN Services - [address] [address] 03/05/2025 8:40 EDT Office Visit [facility] Rheumatology & Immunology - [address] [phone] Nikolay Elizabeth MD MPH [address] [place] [address], [address] [place] [phone] Scheduled Procedures Name Priority Associated Diagnoses Date/Ti me LAPAROSCOPY, WITH EXCISION O R FULGURATION OF LESIONS OF OVARY, PELVIC VISCERA, OR PERITONEAL SURFACE Cyst of left ovary 12/11/2024 9:25 EST documented as of this encounter Visit Diagnoses Diagnosis Abnormal uterine bleeding- Primary Unspecified disorder of menstruation and other abnormal bleeding from female genital tract Cyst of left ovary Other and unspecified ovarian cyst documented in this encounter Care Teams Color Control Operator Relationship Specialty Start Date End Date Kalyani Landeros DNP [address] [place] [id number] PCP - General Family Medicine - Primary Care 11/05/20 11/26/22 documented as of this encounter
--- OUTSIDE RECORDS SUMMARY | 2024-12-08 15:30 | XMS_ITS | Encounter Summary ---
Author Organization [facility] Address [address] [place] [address] Care Team Providers Care Spinning Lathe Operator Name Role Phone Kalyani Landeros DNP Primary Care Provider [phone] Reason for Visit * Reason Comments Medication Management Encounter Details Date Type Department Care Team (Latest Contact Info) Description 01/11/2021 13:00 EST Telemedicine [facility] [address], [place] [phone] Kalyani Landeros DNP [address] [place] [address] Attention deficit hyperactivity disorder (ADHD), predominantly inattentive type (Primary Dx); Anxiety; Moderate episode of recurrent major depressive disorder ([facility]-CMS) Social History Tobacco Use Types Packs/Day Years [...] file 07/2020 PHQ-2 Answer Date Recorded PHQ-2 Score 1 01/11/2021 Interpersonal Safety Answer Date Record ed Physically [...] - Inhaled Oxygen Concentration - - Weight 73.9 kg (163 lb) 01/11/2021 0941 EST Height 157.5 cm (5' 2.01) 01/11/2021 0941 EST Body Mass Index 29.81 01/11/2021 0941 EST documented in this encounter Functional Status [...] disorder (ADHD), predominantly inattentive type Take 1 Cap by mouth every morning. Daily Max: 30 mg 28 Cap 01/11/2021 02/01/2021 documented in this encounter Progress Notes * Kalyani Landeros APRN - 01/11/2021 1300 EST [facility] [place] Today's visit was provided through telemedicine video conferencing: The location of the patient: Home The location of the provider: Home office Verbal consent: The concept of ???Telemedicine?? has been described to the patient.Patient has been informed of the anticipated benefits and possible risks. Patient understands the information provided regarding telemedicine, has had the opportunity to ask questions about this information, and all questions have been answered to patient???s satisfaction. Patient consents for the use of telemedicine in his/her medical care and authorizes the transmission of any relevant medical information to providers and their staff involved in patient???s medical or mental health care. Verbal consent obtained by myself or auxiliary staff: yes. Subjective: Chief Complaint(s): Medication Management HPI: Last appointment 12/03/2020 for anxiety and depression. Citalopram increased to 20mg/day. She stoppedtaking this 2 weeks ago due to feeling less motivated and not interested in doing things. She is working with a therapist (has worked with him for 4 years). He thinks the primary sweeper driver of her anxiety is untreated ADHD. She has a [employer] job. She is having difficulty focusing. She has 1000 thoughts of what I am supposedto do, but then I can't do anything. Previous treatment for ADHD - adderall, guanfacine, wellbutrin, strattera. Behavioral Health Screen Summary Interpretation PHQ-2: 1 PHQ-9: 12 Moderate Depression MELANIA-2: 0 MELANIA-7: 2 Minimal Anxiety SASQ: AUDIT-10: SSASQ: DAST-10: . I have reviewed current problem list and current medications. Review of Systems Constitutional: Negative for activity change, appetite change and unexpected weight change. Psychiatric/Behavioral: Positive for decreased concentration and dysphoric mood. Negative for behavioral problems. The patient is nervous/anxious. Objective: Examination: Home Vitals: Ht 157.5 cm (62.01) Wt 73.9 kg (163 lb) BMI 29.81 kg/m?? Pertinent exam findings: GENERAL APPEARANCE: no acute distress, pleasant, cooperative. HEENT EYES:, conjunctiva clear. NECK: supple LUNGS: unlabored SKIN: warm & dry. NEUROLOGIC EXAM: alert & oriented x3 PSYCH: mood appropriate, affect full range Data reviewed with patient: last note Assessment & Plan: 1. Attention deficit hyperactivity disorder (ADHD), predominantly inattentive type Therapeutic benefits and side effects discussed. Will start Vyvanse 30mg in the morning. Titrate asneeded to therapeutic dose. Discussed signing a controlled substance agreement at a future appointment. Follow up in 3 weeks, sooner if needed. - lisdexamfetamine (VYVANSE) 30 mg capsule; Take 1 Cap by mouth every morning. Daily Max: 30 mg Dispense: 28 Cap; Refill: 0 2. Anxiety Continue counseling. 3. Moderate episode of recurrent major depressive disorder (HCC-CMS) Continue counseling. I spent a total of 30 minutes on the date of this encounter meeting with the patient and reviewing documentation/coordinating care as described in the above note. The following individuals and their role did participate in today's encounter visit: Provider: Kalyani Landeros APRN Patient documented in this encounter Plan of Treatment Upcoming Encounters Date Type Department Care Team (Late st Contact Info) Description 12/11/2024 9:25 EST Hospital Encounter [facility] OR [address] [place] [phone] Celeste Cooper MD [address] [place] [phone] 12/11/2024 9:25 EST - 12/11/2024 11:40 EST Surgery [facility] OR [address] [place] [address] [phone] Celeste Cooper MD [address] [place] [phone] Laparoscopic left ovarian cystectomy [58598 (CPT??)] 12/31/2024 16:15 EST Post-op Visit [facility] OBGYN Services - [address] [address] Jessika Upton MD [address] [place] [address] 02/06/2025 13:10 EDT Appointment [facility] OBGYN Services - [address] [address] 03/05/2025 8:40 EDT Office Visit [facility] Rheumatology & Immunology - [address] [phone] Nikolay Elizabeth MD MPH [address] [facility], [address] [place] [phone] Scheduled Procedures Name Priority Associated Diagnoses Date/Ti me LAPAROSCOPY, WITH EXCISION O R FULGURATION OF LESIONS OF OVARY, PELVIC VISCERA, OR PERITONEAL SURFACE Cyst of left ovary 12/11/2024 9:25 EST documented as of this encounter Visit Diagnoses Diagnosis Attention deficit hyperactivity disorder (ADHD), predominantly inattentive type- Primary Anxiety Anxiety state, unspecified Moderate episode of recurrent major depressive disorder (HCC-CMS) Cyst of left ovary Other and unspecified ovarian cyst documented in this encounter Discontinued Medications Medication Sig Discontinue Reason Start Date End Da te citalopram (CELEXA) 10 mg tabletIndications:Anxiety ,Moderate episode of recurrent major depressive disorder (HCC-CMS) Take 2 Tabs by mouth daily. Therapy completed 12/03/2020 01/11/2021 documented as of this encounter Care Teams Spinning Lathe Operator Relationship Specialty Start Date End Date Kalyani Landeros DNP [address] [place] [id number] PCP - General Family Medicine - Primary Care 11/05/20 11/26/22 documented as of this encounter
--- OUTSIDE RECORDS SUMMARY | 2024-12-08 15:30 | XMS_ITS | Encounter Summary ---
Author Organization [facility] Address [address] [place] [address] Care Team Providers Care Clinical Biostatistics Director Name Role Phone LanderosKalyani KATHY Primary Care Provider [phone] Reason for Visit * Reason Comments Hand Injury Encounter Details Date Type Department Care Team (Late st Contact Info) Description 2022 15:30 EDT Walk-In [facility] [address] [place] [id number] Radha Watters, CELL SUPPORT OPERATOR [address] [place] [phone] Injury of right hand, initial encounter (Primary Dx) Social History Tobacco Use Types [...] Sign Reading Time Taken Comments Blood Pressure 106/72 2022 1549 EDT Pulse 87 2022 1549 EDT Temperature 36.9 ??C (98.4 ??F) 2022 1549 EDT Respiratory Rate 18 2022 1549 EDT Oxygen Saturation 98% 2022 1549 EDT Inhaled Oxygen Concentration - - Weight - [...] this encounter Patient Instructions * Patient Instructions* Radha Watters - 2022 15:30 EDT Images from the original note were not included. There is no evidence of fracture on exam today as read by your provider, if the radiologist notes any abnormalities that we will change the plan of care we will call you tomorrow morning after 9 AM. In the meantime, this is being treated as a soft tissue injury such as bruising. You may apply ice for 15 to 20 minutes 3-4 times daily, you may take diey-cjg-xceqckl pain relievers such as ibuprofen or acetaminophen, take pain relievers per packaging instructions. Perform gentle range of motion of the joints of the right hand 3-4 times daily. Avoid heavy lifting/gripping/pulling/pushing until healed. Follow-up as needed for any new or worsening signs or symptoms such as redness, swelling, fever, worsening pain, otherwise, follow-up for symptoms that persist past 2 weeks. [facility] Patient Instructions Contusion: Care Instructions Overview Contusion is the medical term for a bruise. It is the result of a direct blow or an impact, such asa fall. Contusions are common sports injuries. Most people think of a bruise as a wvtxe-wbp-ebpt spot. This happens when small blood vessels get torn and leak blood under the skin. But bones, muscles, and organs can also get bruised. This may damage deep tissues but not cause a bruise you can see. The doctor will do a physical exam to find the location of your contusion. You may also have tests to make sure you do not have a more serious injury, such as a broken bone or nerve damage. These mayinclude X-rays or other imaging tests like a CT scan or MRI. Deep-tissue contusions may cause pain and swelling. But if there is no serious damage, they will often get better in a few weeks with home treatment. The doctor has checked you carefully, but problems can develop later. If you notice any problems ornew symptoms, get medical treatment right away. Follow-up care is a vidal part of your treatment and safety. Be sure to make and go to all appointments, and call your doctor if you are having problems. It's also a good idea to know your test resultsand keep a list of the medicines you take. How can you care for yourself at home? ?? Put ice or a cold pack on the sore area for 10 to 20 minutes at a time to stop swelling. Put a thin cloth between the ice pack and your skin. ?? Be safe with medicines. Read and follow all instructions on the label. ? If the doctor gave you a prescription medicine for pain, take it as prescribed. ? If you are not taking a prescription pain medicine, ask your doctor if you can take an okhl-cji-eeqqsnh medicine. ?? If you can, prop up the sore area on pillows as much as possible for the next few days. Try to keep the sore area above the level of your heart. When should you call for help? Call your doctor now or seek immediate medical care if: ? Your pain gets worse. ? You have new or worse swelling. ? You have tingling, weakness, or numbness in the area near the contusion. ? The area near the contusion is cold or pale. Watch closely for changes in your health, and be sure to contact your doctor if: ? You do not get better as expected. Where can you learn more? Go to https://www.Ostrovok.SolarNOW/Embibeealth or log into your [employer]match account at [email or web address] [email or web address].Story of My Life Enter H828 in the search box to learn more about Contusion: Care Instructions. Current as of: May 27, 2021?Content Version: 13.2 ?? [employer]. Care instructions adapted under license by [facility]. If you have questions about a medical condition or this instruction, always ask your healthcare professional. [employer] disclaims any warranty or liability for your use of this information. documented in this encounter Progress Notes * Johann Villeda, MYA - 2022 1530 EDT CC/HPI: Patient reports that she injured her right hand after hitting a wooden door. Covid Screening: In the last 72 hours, has the patient had: New or unusual cough, shortness of breath, new nasal congestion, sore throat, fever, chills, body aches, or new loss of taste or smell: No In the past 10 days, has the patient had a positive Covid test OR a confirmed close Covid exposure (<6ft for > 15mins in 24hr period)? (if yes, assign to [facility], regardless of vaccination status) No Is the patient fully Covid vaccinated? Two Vaccines Approximate date of last dose? Second vaccine on 05/07/21 Assessed patient's safety at home on 03/25/22. Patient reports that she feels safe at home. JOHANN VILLEDA RN 03/25/22 15:46 PCP: Kalyani Landeros * Muna Wattersa - 2022 1530 EDT [facility] Chief Complaint(s): Chief Complaint Patient presents with ??? Hand Injury Assessment & Plan: Ulises was seen today for hand injury. Diagnoses and all orders for this visit: Injury of right hand, initial encounter - XR HAND RIGHT 3 OR MORE VIEWS Ulises Duffy is a pleasant and cooperative 27 y.o. yr old female with injury to the R hand. DDx include: fracture versus contusion X-ray imaging is independently reviewed, no acute osseous injury. I do suspect contusion. Independent visualization of x-ray imaging is discussed with patient. The radiologist's report is reviewed when available and any changes to plan of care are communicated to patient via telephone. Patient is generally well appearing, afebrile, non toxic, stable on exam. I printed material and reviewed home management and follow up in detail with patient, see patient instructions below. Patient is advised in use of [employer] to access any lab results or other pertinentvisit information. All questions are answered. Patient is advised to follow up for urgent reassessment for any new/worsening signs and symptoms, otherwise, follow up with PCP or at [facility] for symptoms that persist past current course of treatment or expected resolution as discussed. Patient verbalizes understanding and agreement with this plan of care. HPI: Ulises Duffy is a 27 y.o. yr old female who is here with chief complaint of R hand pain s/p blunt force injury that occurred approximately an hour and a half prior to arrival. She notes she was entering her daughter's bedroom when she thought the wooden door was open but it was not and her right hand struck the wooden door quite forcefully. Since that time she notes pain in the medial dorsum of the hand, she indicates areas over the fourth and fifth metacarpals. She is right-hand dominant. She denies any previous injury to this hand. She denies fever, chills, open wounds. No home interventions for this injury. I have reviewed current problem list, current medications and allergies. ROS: Review of Systems Constitutional: Negative for chills and fever. Musculoskeletal: Positive for joint pain. See HPI for details Objective: Vitals and nursing notes reviewed Examination: BP 106/72 Pulse 87 Temp 36.9 ??C (98.4 ??F) (Oral) Resp 18 SpO2 98% Physical Exam Vitals and nursing note reviewed. Constitutional: General: She is awake. She is not in acute distress. Appearance: She is not ill-appearing, toxic-appearing or diaphoretic. Musculoskeletal: Right wrist: Normal. Right hand: Swelling (over distal 4th and 5th MCs) and bony tenderness (distal 4th and 5th MCs) present. No lacerations. Decreased range of motion (diminished flexion at 4th and 5th MCPs). Normal capillary refill. Neurological: Mental Status: She is alert. Psychiatric: Behavior: Behavior is cooperative. This note may be in part documented using [employer] dictation software. Please forgive any errors, omissions or typos that may result from use of dictation. documented in this encounter Plan of Treatment Upcoming Encounters Date Type Department Care Team (Late st Contact Info) Description 12/11/2024 9:25 [facility] Hospital Encounter [facility] [place] [address] [place] [address] [phone] Celeste Cooper MD [address] [place] [address] [phone] 12/11/2024 9:25 EST - 12/11/2024 11:40 EST Surgery [facility] OR [address] [place] [address] [phone] Celeste Cooper MD [address] [place] [address] [phone] Laparoscopic left ovarian cystectomy [31543 (CPT??)] 12/31/2024 16:15 EST Post-op Visit [facility] [address] [phone] Jessika Upton MD [address] [place] [address] [phone] 02/06/2025 13:10 EDT Appointment [facility] [address] [phone] 03/05/2025 8:40 EDT Office Visit [facility] Rheumatology & Immunology [address] [phone] Nikolay Elizabeth MD [address], [address] [place] [phone] Scheduled Procedures Name Priority Associated Diagnoses Date/Ti me LAPAROSCOPY, WITH EXCISION O R FULGURATION OF LESIONS OF OVARY, PELVIC VISCERA, OR PERITONEAL SURFACE Cyst of left ovary 12/11/2024 9:25 EST documented as of this encounter Procedures Procedure Name Priority Date/Time Associated Diagnosis Comments XR HAND RIGHT 3 OR MORE VIEWS STAT 2022 16:13 EDT Injury of right hand, initial encounter documented in this encounter Results * XR HAND RIGHT 3 OR MORE VIEWS (2022 16:13 EDT) Anatomical Region Laterality Modality Upper Extremities Right Computed Radio graphy 2022 16:0 7 EDT Impressions 2022 16:48 EDT No acute fracture or dislocation identified. THIS DOCUMENT HAS BEEN ELECTRONICALLY SIGNED BY LAMBERTO DE JESUS MD FOR ANY QUESTIONS OR CONCERNS REGARDING THIS REPORT PLEASE CALL [facility] AT [phone] Narrative 2022 16:48 EDT PROCEDURE INFORMATION: Exam: XR Right Hand Exam date and time: 2022 4:07 PM Age: 27 years old Clinical indication: Unspecified injury of right wrist, hand and finger(s), initial encounter; Pain; Additional info: R hand blunt force injury - pain over distal 4th and 5th mcs TECHNIQUE: Imaging protocol: XR Right hand. Views: 3 or more views. COMPARISON: No relevant prior studies available. FINDINGS: Bones/joints: No acute fracture or dislocation is identified. There is no osseous erosion or cortical destruction. No focal lytic or blastic lesion is identified. Soft tissues: The soft tissues appear grossly unremarkable. Procedure Note Lamberto De Jesus MD - 2022 PROCEDURE INFORMATION: Exam: XR Right Hand Exam date and time: 2022 4:07 PM Age: 27 years old Clinical indication: Unspecified injury of right wrist, hand and finger(s), initial encounter; Pain; Additional info: R hand blunt force injury - pain over distal 4th and 5th mcs TECHNIQUE: Imaging protocol: XR Right hand. Views: 3 or more views. COMPARISON: No relevant prior studies available. FINDINGS: Bones/joints: No acute fracture or dislocation is identified. There is no osseous erosion or cortical destruction. No focal lytic or blastic lesion is identified. Soft tissues: The soft tissues appear grossly unremarkable. IMPRESSION No acute fracture or dislocation identified. THIS DOCUMENT HAS BEEN ELECTRONICALLY SIGNED BY LAMBERTO DE JESUS MD FOR ANY QUESTIONS OR CONCERNS REGARDING THIS REPORT PLEASE CALL [facility] [phone] Radha Watters NP IMG DIAGNOSTIC IMAGING ORDERABL ES Final Result documented in this encounter Visit Diagnoses Diagnosis Injury of right hand, initial encounter- Primary Cyst of left ovary Other and unspecified ovarian cyst documented in this encounter Care Teams Clinical Biostatistics Director Relationship Specialty Start Date End Date Kalyani Landeros DNP [address] [place] [address] PCP - General Family Medicine - Primary Care 11/05/20 11/26/22 documented as of this encounter
--- OUTSIDE RECORDS SUMMARY | 2024-12-08 15:30 | XMS_ITS | Encounter Summary ---
Author Organization [facility] Address [address] [place] [address] Care Team Providers Care Union Organiser Name Role Phone Kalyani Landeros DNP Primary Care Provider [phone] Reason for Referral * TORPEDO MAN (Routine/Next Available) - Specialty Report Received Specialty Diagnoses / Procedures [facility] Referred To Contact Diagnoses Abnormal uterine bleeding Procedures US PELVIS TRANSVAGINAL Celeste Cooper MD Phone: tel: fax: Referral ID Status Reason Start Date Expiration Date V isits Requested Visits Authorized [id number] Specialty Report Received 08/27/2021 1 1 Encounter Details Date Type Department Care Team (Late st Contact Info) Description 08/27/2021 Orders Only [facility] - [address] [phone] Belén Salas MD [address] [facility], [address] [place] [phone] Abnormal uterine bleeding (Primary Dx) Social History [...] documented in this encounter Progress Notes * Belén Salas MD - 08/27/2021 0707 EDT Order placed for new TVUS in [facility] UP [facility]PER[facility] clinic. documented in this encounter Plan of Treatment Upcoming Encounters Date Type Department Care Team (Late st Contact Info) Description 12/11/2024 9:25 EST Hospital Encounter [facility] OR [address] [place] [address] [phone] Celeste Cooper MD [address] [place] [address] [address] [place] [phone] 12/11/2024 9:25 EST - 12/11/2024 11:40 EST Surgery [facility] OR [address] [place] [address] [phone] Celeste Cooper MD [address] [place] [address] [phone] Laparoscopic left ovarian cystectomy [95460 (CPT??)] 12/31/2024 16:15 EST Post-op Visit [facility] - [address] [phone] Jessika Upton MD [address] [place] [address] [phone] 02/06/2025 13:10 EDT Appointment [facility] [address] [phone] 03/05/2025 8:40 EDT Office Visit [facility] Rheumatology & Immunology - [address] [phone] Nikolay Elizabeth MD MPH [address] [place] [address] 5 [place] [phone] Scheduled Procedures Name Priority Associated Diagnoses Date/Ti me LAPAROSCOPY, WITH EXCISION O R FULGURATION OF LESIONS OF OVARY, PELVIC VISCERA, OR PERITONEAL SURFACE Cyst of left ovary 12/11/2024 9:25 EST documented as of this encounter Results * US PELVIS TRANSVAGINAL (10/05/2021 15:47 EST) Anatomical Region Laterality Modality Pelvis Ultrasound 10/05/2021 15:5 0 EST Narrative 10/05/2021 16:19 EST Indication Abnormal Uterine Bleeding; Dyspareunia; Pelvic Pain. Assessment LMP on 09/19/2021. Day of cycle: 17. Cycle: irregular cycle. Contraception: Partner had a vasectomy. Uterus ======= Uterus: ?Visualized Uterus position: ?? Anteverted Uterine malformations: None Myometrium: ?Appears normal Endometrium: ?? Luteal phase Uterus long ?8.1 cm Uterus ap ??4.1 cm Uterus tr ??4.9 cm Endometrial thickness, total ?? 7.8 mm Right Ovary Rt ovary: ??Visualized, normal appearance Outline: ?? Smooth Rt ovary morphology: ?? Normal physiologic changes Rt ovary D1 ?3.7 cm Rt ovary D2 ?3.6 cm Rt ovary D3 ?2.0 cm Rt ovary mean ??3.1 cm Rt ovary vol ?? 13.7 cm cubed Left Ovary Lt ovary: ??Visualized, normal appearance Outline: ?? Smooth Lt ovary morphology: ?? Normal physiologic changes Lt ovary D1 ?3.6 cm Lt ovary D2 ?4.6 cm Lt ovary D3 ?2.9 cm Lt ovary mean ??3.7 cm Lt ovary vol ?? 25.6 cm cubed Lt ovarian cyst(s): ?Cysts identified Findings: ??Simple cyst D1 37.0 mm D2 23.7 mm D3 27.4 mm Mean ?? 29.4 mm Vol ?12.581 cm cubed Cul de Sac Appears normal. No free fluid visualized. Method ======== Transvaginal ultrasound examination, probe #4. View: Sufficient. Impression Transvaginal Pelvic -[id number] 1. Uterus is unremarkable in size, contour and echogenicity. 2. Endometrium is unremarkable. 3. Right ovary with dominant follicle, otherwise unremarkable. 4. Left ovary with 3 cm simple cyst; may be resolving follicle vs cystic structure. No pain with probe in this area. 5. No free fluid in the cul-de-sac. Follow-up Follow-up with ROT[facility] [employer] SET UP OPERATOR provider. Comment ========= Ultrasound findings discussed w/patient. R10.3 Abdominal pain, lower abdomen, N94.1 dyspareunia. N93.9 abnormal uterine bleeding, unspecified. DATE OF SERVICE: 10/05/2021 Procedure Note Enedina Harris MD - 10/05/2021 Indication Abnormal Uterine Bleeding; Dyspareunia; Pelvic Pain. Assessment LMP on 09/19/2021. Day of cycle: 17. Cycle: irregular cycle.Contraception: Partner had a vasectomy. Uterus ======= Uterus: Visualized Uterus position: Anteverted Uterine malformations: None Myometrium: Appears normal Endometrium: Luteal phase Uterus long 8.1 cm Uterus ap 4.1 cm Uterus tr 4.9 cm Endometrial thickness, total 7.8 mm Right Ovary Rt ovary: Visualized, normal appearance Outline: Smooth Rt ovary morphology: Normal physiologic changes Rt ovary D1 3.7 cm Rt ovary D2 3.6 cm Rt ovary D3 2.0 cm Rt ovary mean 3.1 cm Rt ovary vol 13.7 cm cubed Left Ovary Lt ovary: Visualized, normal appearance Outline: Smooth Lt ovary morphology: Normal physiologic changes Lt ovary D1 3.6 cm Lt ovary D2 4.6 cm Lt ovary D3 2.9 cm Lt ovary mean 3.7 cm Lt ovary vol 25.6 cm cubed Lt ovarian cyst(s): Cysts identified Findings: Simple cyst D1 37.0 mm D2 23.7 mm D3 27.4 mm Mean 29.4 mm Vol 12.581 cm cubed Cul de Sac Appears normal. No free fluid visualized. Method ======== Transvaginal ultrasound examination, probe #4. View: Sufficient. Impression Transvaginal Pelvic -[id number] 1. Uterus is unremarkable in size, contour and echogenicity. 2. Endometrium is unremarkable. 3. Right ovary with dominant follicle, otherwise unremarkable. 4. Left ovary with 3 cm simple cyst; may be resolving follicle vs cysticstructure. No pain with probe in this area. 5. No free fluid in the cul-de-sac. Follow-up Follow-up with [facility] [employer] SET UP OPERATOR provider. Comment ========= Ultrasound findings discussed w/patient. R10.3 Abdominal pain, lower abdomen, N94.1 dyspareunia. N93.9 abnormaluterine bleeding, unspecified. DATE OF SERVICE: 10/05/2021 us Celeste Cooper MD IMG US OB ORDERABLES Final Re sult documented in this encounter Visit Diagnoses Diagnosis Abnormal uterine bleeding- Primary Unspecified disorder of menstruation and other abnormal bleeding from female genital tract Abnormal uterine bleeding Unspecified disorder of menstruation and other abnormal bleeding from female genital tract Cyst of left ovary Other and unspecified ovarian cyst documented in this encounter Care Teams Union Organiser Relationship Specialty Start Date End Date Kalyani Landeros DNP [address] [place] [phone] PCP - General Family Medicine - Primary Care 11/05/20 11/26/22 documented as of this encounter
--- OUTSIDE RECORDS SUMMARY | 2024-12-08 15:30 | XMS_ITS | Encounter Summary ---
Author Organization [facility] Address [address] [place] [address] Care Team Providers Care Pediatric Oncologist Name Role Phone Kalyani Landeros KATHY Primary Care Provider [phone] Reason for Visit * Reason Onset Date Comments Medications Refill 04/18/2022 Encounter Details Date Type Department Care Team (Late st Contact Info) Description 04/18/2022 Refill [facility] [address] [phone] Eloise Pineda RN Medications Refill Social History Tobacco Use Types [...] No 01/30/2020 23:20 Andrea Wislon ace, RN * Are you blind or [...] morning. Daily Max: 30 mg 28 capsule 04/18/2022 2 documented in this encounter Miscellaneous Notes * Telephone Encounter - Arlene Triana MA - 04/18/2022 1420 EDT CSA filled out and mailed to patient. * Telephone Encounter - Kalyani Landeros NP - 04/18/2022 1407 EDT Rx sent. Please mail CSA. * Telephone Encounter - Romulo-Eloise Torres RN - 04/18/2022 1341 EDT Refill Vyvanse to [facility] - 10/11/21 NOV - none last refill - 03/03/22, #28 for 28 days NR No CSA on file VPMS - last p/u 03/03/22, #28 OK to refill? documented in this encounter Plan of Treatment Upcoming Encounters Date Type Department Care Team (Late st Contact Info) Description 12/11/2024 9:25 EST Hospital Encounter [facility] OR [address] [place] [address] [phone] Celeste Cooper MD [address] [place] [address] [address] [place] [phone] 12/11/2024 9:25 EST - 12/11/2024 11:40 EST Surgery [facility] OR [address] [place] [address] [phone] Celeste Cooper MD [address] [place] [address] [phone] Laparoscopic left ovarian cystectomy [[id number] (CPT??)] 12/31/2024 16:15 EST Post-op Visit [facility] O[facility] Services [address] [phone] Jessika Upton MD [address] [place] [address] [phone] 02/06/2025 13:10 EDT Appointment [facility] [address] [phone] 03/05/2025 8:40 EDT Office Visit [facility] Rheumatology & Immunology - [address] [address] Nikolay Elizabeth MD MPH [address] [facility], [address] [place] [phone] Scheduled Procedures Name Priority Associated Diagnoses Date/Ti [...] every morning. Daily Max: 30 mg Reorder 03/03/2022 04/18/2022 documented as of this encounter Care Teams Pediatric Oncologist Relationship Specialty Start Date End Date Kalyani Landeros DNP [address] [place] [phone] PCP - General Family Medicine - Primary Care 11/05/20 11/26/22 documented as of this encounter
--- OUTSIDE RECORDS SUMMARY | 2024-12-08 15:30 | XMS_ITS | Encounter Summary ---
Author Organization [facility] Address [address] [place] [address] Care Team Providers Care Core Machine Tender Name Role Phone LanderosKalyani KATHY Primary Care Provider [phone] Reason for Visit * Reason Onset Date Comments Prior Auth, Medication 02/16/2021 Encounter Details Date Type Department Care Team (Late st Contact Info) Description 02/16/2021 Telephone [facility] Family Medicine [address] [address] Fareed Gan RN Prior Auth, Medication Social History Tobacco Use Types Packs/Day Years [...] encounter Miscellaneous Notes * Telephone Encounter - Cely Ty RN - 02/22/2021 1511 EDT Medication switched. PA was denied. Closing encounter * Telephone Encounter - Fareed Gan RN - 02/17/2021 0907 EDT Request for additional information received. PA updated and re-sent. * Telephone Encounter - Fareed Gan RN - 02/16/2021 0801 EDT PA submitted for methylphenidate HCL ER. documented in this encounter Plan of Treatment Upcoming Encounters Date Type Department Care Team (Late st Contact Info) Description 12/11/2024 9:25 EST Hospital Encounter [facility] OR [address] [place] [address] [phone] Celeste Cooper MD [address] [place] [address] [address] [place] [phone] 12/11/2024 9:25 EST - 12/11/2024 11:40 EST Surgery [facility] OR [address] [place] [address] [phone] Celeste Cooper MD [address] [place] [address] [phone] Laparoscopic left ovarian cystectomy [00282 (CPT??)] 12/31/2024 16:15 EST Post-op Visit [facility] - [address] 163711 Jessika Upton MD [address] [place] [address] [phone] 02/06/2025 13:10 EDT Appointment [facility] - [address] [phone] 03/05/2025 8:40 EDT Office Visit [facility] Rheumatology & Immunology - [address] [phone] Nikolay Elizabeth MD MPH [address] [place] [address] 5 [place] [phone] Scheduled Procedures Name Priority Associated Diagnoses Date/Ti me LAPAROSCOPY, WITH EXCISION O R FULGURATION OF LESIONS OF OVARY, PELVIC VISCERA, OR PERITONEAL SURFACE Cyst of left ovary 12/11/2024 9:25 EST documented as of this encounter Visit Diagnoses Not on filedocumented in this encounter Care Teams Core Machine Tender Relationship Specialty Start Date End Date Kalyani Landeros DNP [address] [place] [address] PCP - General Family Medicine - Primary Care 11/05/20 11/26/22 documented as of this encounter
--- OUTSIDE RECORDS SUMMARY | 2024-12-08 15:30 | XMS_ITS | Encounter Summary ---
Author Organization [facility] Address [address] [place] [address] Care Team Providers Care Video Game Creator Name Role Phone Kalyani Landeros DNP Primary Care Provider [phone] Reason for Visit * Reason Comments Follow-up Mood / Medication Encounter Details Date Type Department Care Team (Late st Contact Info) Description 12/03/2020 13:00 EST Telemedicine [facility] Integrative Family Medicine [address] [phone] Kalyani Landeros DNP [address] [place] [address] Anxiety (Primary Dx); Moderate episode of recurrent major depressive disorder (HCC-CMS) Social History Tobacco Use Types Packs/Day Years [...] 07/2020 PHQ-2 Answer Date Recorded PHQ-2 Score 0 12/02/2020 Interpersonal Safety Answer Date Record ed Physically [...] - Inhaled Oxygen Concentration - - Weight 71.7 kg (158 lb) 12/02/2020 0941 EST Height 157.5 cm (5' 2.01) 12/02/2020 0941 EST Body Mass Index 28.89 12/02/2020 0941 EST documented in this encounter Functional [...] Refills Last Filled Start Date End Date citalopram (CELEXA) 10 mg tabletIndications:An xiety,Moderate episode of recurrent major depressive disorder (HCC-CMS) Take 2 Tabs by mouth daily. 30 Tab 2 12/03/2020 ondansetron (ZOFRAN-ODT) 4 mg disintegrating tablet Take 1 Tab by mouth every 8 hours as needed for Nausea. 12 Tab 3 12/03/2020 1 documented in this encounter Progress Notes * Kalyani Landeros, POST HOLE DIGGING MACHINE OPERATOR - 12/03/2020 1300 EST [facility] Video Visit Today's visit was provided [...] or auxiliary staff: yes. Subjective: Chief Complaint(s): Follow-up (Mood / Medication ) HPI: Behavioral Health Screen Summary Interpretation PHQ-2: 0 PHQ-9: 0 Minimal Depression MELANIA-2: 0 MELANIA-7: 0 Minimal Anxiety SASQ: AUDIT-10: SSASQ: DAST-10: . F/U depression and anxiety. Last appointment 11/05/2020 she was prescribed citalopram 10mg/day. Ulises reports significant improvement in her anxiety with discontinuing wellbutrin xl and starting citalopram 10mg. Only side effect is decreased libido. I have reviewed patient's tobacco history: reports that she has never smoked. She has never used smokeless tobacco. I have reviewed current problem list and current medications. Review of Systems Psychiatric/Behavioral: Positive for dysphoric mood (mild). Negative for sleep disturbance. The patient is nervous/anxious (mild). Objective: Examination: Home Vitals: Ht 157.5 cm (62.01) Wt 71.7 kg (158 lb) BMI 28.89 kg/m?? Pertinent exam findings: GENERAL APPEARANCE: no acute distress, pleasant, cooperative. HEENT EYES:, conjunctiva clear. NECK: supple LUNGS: unlabored SKIN: warm & dry. NEUROLOGIC EXAM: alert & oriented x3 PSYCH: mood appropriate, affect full range Data reviewed with patient: last note Assessment & Plan: 1. Anxiety Positive therapeutic response to citalopram 10 mg daily. Will increase to 20 mg and continue that dose if tolerated without additional side effects. I have asked her to send me an update in 2 to 4 weeks, sooner if symptoms worsen. - citalopram (CELEXA) 10 mg tablet; Take 2 Tabs by mouth daily. Dispense: 30 Tab; Refill: 2 2. Moderate episode of recurrent major depressive disorder ([facility]-CMS) - citalopram (CELEXA) 10 mg tablet; Take 2 Tabs by mouth daily. Dispense: 30 Tab; Refill: 2 The following individuals and their role did participate in today's encounter visit: Provider: Kalyani aLnderos APRN Patient documented in this encounter Plan of Treatment Upcoming Encounters Date Type Department Care Team (Late st Contact Info) Description 12/11/2024 9:25 EST Hospital Encounter [facility] OR [address] [place] [address] [phone] Celeste Cooper MD [address] [place] [address] [phone] 12/11/2024 9:25 EST - 12/11/2024 11:40 EST Surgery [facility] OR [address] [place] [address] [phone] Celeste Cooper MD [address] [place] [address] [phone] Laparoscopic left ovarian cystectomy [23240 (CPT??)] 12/31/2024 16:15 EST Post-op Visit [facility] O[facility] Services - [address] [phone] Jessika Upton MD [address] [place] [address] [phone] 02/06/2025 13:10 EDT Appointment [facility] - [facility] [address] [place], [place] 404131 03/05/2025 8:40 EDT Office Visit [facility] Rheumatology & Immunology - [address] 955291 Nikolay Elizabeth MD MPH [address] [facility], Level [address] [place] [address] Scheduled Procedures Name Priority Associated Diagnoses Date/Ti me LAPAROSCOPY, WITH EXCISION O R FULGURATION OF LESIONS OF OVARY, PELVIC VISCERA, OR PERITONEAL SURFACE Cyst of left ovary 12/11/2024 9:25 EST documented as of this encounter Visit Diagnoses Diagnosis Anxiety- Primary Anxiety state, unspecified Moderate episode of recurrent major depressive disorder (HCC-CMS) Cyst of left ovary Other and unspecified ovarian cyst documented in this encounter Discontinued Medications Medication Sig Discontinue Reason Start Date End Da te buPROPion (WELLBUTRIN XL) 300 mg XL tablet Take 1 Tab by mouth daily for 360 days. Patient Stopped Taking 10/21/2020 12/03/2020 buPROPion (WELLBUTRIN XL) 150 mg XL tablet Take 1 Tab by mouth daily for 360 days. Therapy completed 10/21/2020 12/03/2020 ondansetron (ZOFRAN-ODT) 4 mg disintegrating tablet Take 4 mg by mouth every 8 hours as needed for Nausea. Reorder 12/02/2020 citalopram (CELEXA) 10 mg tabletIndications:Anxiety ,Moderate episode of recurrent major depressive disorder (HCC-CMS) Take 1 Tab by mouth daily. 11/05/2020 12/03/2020 documented as of this encounter Historical Medications * This list may reflect changes made after this encounter. ondansetron (ZOFRAN-ODT) 4 mg disintegrating tablet Take 4 mg by mouth every 8 hours as needed for Nausea. 1 added in this encounter Care Teams Video Game Creator Relationship Specialty Start Date End Date Kalyani Landeros DNP [address] [place] [address] PCP - General Family Medicine - Primary Care 11/05/20 11/26/22 documented as of this encounter
--- OUTSIDE RECORDS SUMMARY | 2024-12-08 15:30 | XMS_ITS | Encounter Summary ---
Author Organization [facility] Address [address] [place] [address] Care Team Providers Care Citizen Participation Specialist Name Role Phone Joseph Eduardo PA-C Primary Care Provider Reason for Visit * Reason Onset Date Comments Establish Care 10/27/2020 Encounter Details Date Type Department Care Team (Late st Contact Info) Description 10/27/2020 Telephone Health [place] [facility] [place] [address] [place] [address] Joseph Eduardo PA-C [address] [place] [phone] Establish Care Social History Tobacco Use Types Packs/Day [...] 07/2020 PHQ-2 Answer Date Recorded PHQ-2 Score 3 11/05/2020 Interpersonal Safety Answer Date Record ed Physically [...] encounter Miscellaneous Notes * Telephone Encounter - Ely Juares - 11/04/2020 1515 EST 11/05/20 3pm with eb via zoom. Pt is aware. grips pprwrk mailed to pt. Records in [facility]. * Telephone Encounter - Johana Avalos - 10/27/2020 1613 EST Patient would like to establish care at [facility]. No health concerns, female provider requested. documented in this encounter Plan of Treatment Upcoming Encounters Date Type Department Care Team (Late st Contact Info) Description 12/11/2024 9:25 EST Hospital Encounter [facility] OR [address] [place] [address] [phone] Celeste Cooper MD [address] [place] [address] [address] [place] [phone] 12/11/2024 9:25 EST - 12/11/2024 11:40 EST Surgery [facility] OR [address] [place] [address] [phone] Celeste Cooper MD [address] [place] [address] 4 [place] [phone] Laparoscopic left ovarian cystectomy [55401 (CPT??)] 12/31/2024 16:15 EST Post-op Visit [facility] OBG[facility] Services - [address] [phone] Jessika Upton MD [address] [place] [address] [phone] 02/06/2025 13:10 EDT Appointment [facility] [address] [phone] 03/05/2025 8:40 EDT Office Visit [facility] Rheumatology & Immunology - [address] [phone] Nikolay Elizabeth MD MPH [address] [place] [address], [facility] [address] [place] [phone] Scheduled Procedures Name Priority Associated Diagnoses Date/Ti me LAPAROSCOPY, WITH EXCISION O R FULGURATION OF LESIONS OF OVARY, PELVIC VISCERA, OR PERITONEAL SURFACE Cyst of left ovary 12/11/2024 9:25 EST documented as of this encounter Visit Diagnoses Not on filedocumented in this encounter Care Teams Citizen Participation Specialist Relationship Specialty Start Date End Date Joseph Eduardo PA-C [address] [place] [phone] PCP - General Family Medicine - Primary Care 08/06/20 11/04/20 documented as of this encounter
--- OUTSIDE RECORDS SUMMARY | 2024-12-08 15:30 | XMS_ITS | Encounter Summary ---
Author Organization [facility] Address [address] [place] [address] Care Team Providers Care Manager Engine Name Role Phone Kalyani Landeros DNP Primary Care Provider Reason for Visit * Reason Comments ADHD Encounter Details Date Type Department Care Team (Latest Contact Info) Description 03/11/2021 16:30 EDT Telemedicine [facility] Integrative Family Medicine [facility] [address] [place], [place] [phone] Kalyani Landeros DNP [address] [place] [address] Attention deficit hyperactivity disorder (ADHD), predominantly inattentive type (Primary Dx) Social History Tobacco Use Types [...] Exposure Response Date Recorded In the last month, have you been in contact with someone who was confirmed or suspected to have Coronavirus / COVID-19? No / Unsure 02/23/2021 13:00 EDT documented as of this encounter Last Filed Vital Signs Vital Sign Reading Time Taken Comments Blood Pressure - - Pulse - - Temperature - - Respiratory Rate - - Oxygen Saturation - - Inhaled Oxygen Concentration - - Weight 70.3 kg (155 lb) 03/11/2021 1352 EDT Height 157.5 cm (5' 2.01) 03/11/2021 1352 EDT Body Mass Index 28.34 03/11/2021 1352 EDT documented in this encounter Functional Status * [...] Refills Last Filled Start Date End Date atomoxetine (STRATTERA) 80 mg capsuleIndications: Attention deficit hyperactivity disorder (ADHD), predominantly inattentive type Take 1 Cap by mouth daily. 28 Cap 1 03/11/2021 04/09/2021 documented in this encounter Progress Notes * Kalyani Landeros, BEATER HEAD - 03/11/2021 1630 EDT [facility] Video Visit Today's visit [...] or auxiliary staff: yes. Subjective: Chief Complaint(s): ADHD HPI: F/U ADHD management. She is taking strattera 40mg. She has not noticed a therapeutic effect at this dose. Taking vyvanse 50mg in the morning. She reports it works until 2-3pm, afterwards she crashes. Previous treatment - adderall (depressed), concerta (zombie) I have reviewed current problem list and current medications. Review of Systems Cardiovascular: Negative for palpitations. Gastrointestinal: Negative for abdominal pain. Neurological: Negative for dizziness and headaches. Objective: Examination: Home Vitals: Ht 157.5 cm (62.01) Wt 70.3 kg (155 lb) BMI 28.34 kg/m?? Pertinent exam findings: GENERAL APPEARANCE: no acute distress, pleasant, cooperative. HEENT EYES:, conjunctiva clear. NECK: supple LUNGS: unlabored SKIN: warm & dry. NEUROLOGIC EXAM: alert & oriented x3 PSYCH: mood appropriate, affect full range Data reviewed with patient: last note Assessment & Plan: 1. Attention deficit hyperactivity disorder (ADHD), predominantly inattentive type Will increase atomoxetine to 80mg/day. Max dose is 100mg/day. Continue Vyvanse if needed. Goal is to take atomoxetine at therapeutic dose as monotherapy. Continue counseling and self care. Send me a [employer] message with an update in 2 weeks, sooner if side effects occur. - atomoxetine (STRATTERA) 80 mg capsule; Take 1 Cap by mouth daily. Dispense: 28 Cap; Refill: 1 I spent a total of 20 minutes on the date of this encounter meeting with the patient and reviewing documentation/coordinating care as described in the above note. The following individuals and their role did participate in today's encounter visit: Provider: Kalyani Landeros APRN Patient documented in this encounter Plan of Treatment Upcoming Encounters Date Type Department Care Team (Late st Contact Info) Description 12/11/2024 9:25 EST Hospital Encounter [facility] OR [address] [place] [address] [phone] Celeste Cooper MD [address] [place] [address] [phone] 12/11/2024 9:25 EST - 12/11/2024 11:40 EST Surgery [facility] OR [address] [place] [address] [phone] Celeste Cooper MD [address] [place] [address] [phone] Laparoscopic left ovarian cystectomy [00562 (CPT??)] 12/31/2024 16:15 EST Post-op Visit [facility] [place] [facility] O[facility] Services [address] [phone] Jessika Upton MD [address] [place] [address] [phone] 02/06/2025 13:10 EDT Appointment [facility] [place] [facility] [address] [phone] 03/05/2025 8:40 EDT Office Visit [facility] Rheumatology & Immunology [address] [address] Nikolay Elizabeth MD MPH 111 [facility], Level [address] [place] [phone] Scheduled Procedures Name Priority Associated Diagnoses Date/Ti [...] Discontinue Reason Start Date End Da te medroxyPROGESTERone (PROVERA) 10 mg tablet Take 1 Tab by mouth daily. Abstraction 02/15/2021 03/11/2021 atomoxetine (STRATTERA) 40 mg capsuleIndications:Attenti on deficit hyperactivity disorder (ADHD), predominantly inattentive type Take 1 Cap by mouth daily. Dose adjustment 02/19/2021 03/11/2021 documented as of this encounter Care Teams Manager Engine Relationship Specialty Start Date End Date Kalyani Landeros DNP [address] [place] [address] PCP - General Family Medicine - Primary Care 11/05/20 11/26/22 documented as of this encounter
--- OUTSIDE RECORDS SUMMARY | 2024-12-08 15:30 | XMS_ITS | Encounter Summary ---
Author Organization [facility] Address [address] [place] [address] Care Team Providers Care Manager Medicare Name Role Phone Kalyani Landeros DNP Primary Care Provider [phone] Reason for Visit * Reason Comments Knee Pain Encounter Details Date Type Department Care Team (Late st Contact Info) Description 02/23/2021 13:00 EDT Office Visit [facility] Integrative Family Medicine [facility] [address] [place], [place] 174352 Kalyani Landeros DNP [address] [place] [address] Acute pain of left knee (Primary Dx) Social History Tobacco Use Types [...] Sign Reading Time Taken Comments Blood Pressure 130/80 02/23/2021 1305 EDT Pulse 88 02/23/2021 1305 EDT Temperature - - Respiratory Rate 16 02/23/2021 1305 EDT Oxygen Saturation 99% 02/23/2021 1305 EDT Inhaled Oxygen Concentration - - Weight 75.5 kg (166 lb 6.4 oz) 02/23/2021 1305 E DT Height 157.5 cm (5' 2.01) 02/23/2021 1305 EDT Body Mass Index 30.43 02/23/2021 1305 EDT documented in this encounter Functional Status [...] Progress Notes * Kalyani Landeros APRN - 02/23/2021 1300 EDT [facility] [place] Subjective: Chief Complaint(s): Knee Pain RHINA Montgomery reports posterior left knee pain x 2 months. Onset after downhill skiing. Self treatment advil -takes off the edge. No previous knee injury. No knee instability. FROM. I have reviewed patient's tobacco history: reports that she has never smoked. She has never used smokeless tobacco. I have reviewed current problem list and current medications. Medications: Current Outpatient Medications on File Prior to Visit Medication Sig Dispense Refill ??? atomoxetine (STRATTERA) 40 mg capsule Take 1 Cap by mouth daily. 30 Cap 0 ??? fexofenadine (MARTHA) 60 mg tablet Take 60 mg by mouth as needed. ??? ibuprofen (MOTRIN) 400 mg tablet Take 1 Tab by mouth every 4 hours as needed for Pain. ??? LORazepam (ATIVAN) 0.5 mg tablet Take 1 Tab by mouth at bedtime as needed for Anxiety. Daily Max: 0.5 mg 15 Tab 1 ??? medroxyPROGESTERone (PROVERA) 10 mg tablet Take 1 Tab by mouth daily. 10 Tab 0 ??? ondansetron (ZOFRAN-ODT) 4 mg disintegrating tablet Take 1 Tab by mouth every 8 hours as neededfor Nausea. 12 Tab 3 No current facility-administered medications on file prior to visit. Review of Systems Constitutional: Negative for fever. Musculoskeletal: Positive for arthralgias (L knee) and joint swelling (L knee). Negative for gait problem. Objective: Examination: Vitals: BP 130/80 Pulse 88 Resp 16 Ht 157.5 cm (62.01) Wt 75.5 kg (166 lb 6.4 oz) SpO2 99% BMI30.43 kg/m?? Body mass index is 30.43 kg/m??. Physical Exam Musculoskeletal: Left knee: She exhibits normal patellar mobility, no bony tenderness, normal meniscus and no MCL laxity. Tenderness found. Medial joint line and MCL tenderness noted. Data reviewed with patient (past results): Reviewed and/or ordered active problem list, medication list, social history, health maintenance, notes from last encounter tests Assessment & Plan: 1. Acute pain of left knee Continue RICE. Will refer to PT for evaluation and treatment. - AMB CONS/FOLLOW UP PHYSICAL THERAPY; Future Return in about 13 days (around 03/08/2021) for ADHD meds. documented in this encounter Plan of Treatment Upcoming Encounters Date Type Department Care Team (Late st Contact Info) Description 12/11/2024 9:25 EST Hospital Encounter [facility] OR [address] [place] [address] [phone] Celeste Cooper MD [address] [place] [address] [address] [place] [phone] 12/11/2024 9:25 EST - 12/11/2024 11:40 EST Surgery [facility] OR [address] [place] [address] [phone] Celeste Cooper MD [address] [place] [address] [address] [place] [phone] Laparoscopic left ovarian cystectomy [30875 (CPT??)] 12/31/2024 16:15 EST Post-op Visit [facility] [address] [phone] Jessika Upton MD [address] [place] [address] [phone] 02/06/2025 13:10 EDT Appointment [facility] [address] [address] 03/05/2025 8:40 EDT Office Visit [facility] Rheumatology & Immunology - [address] [phone] Nikolay Elizabeth MD [address] [place] [phone] Scheduled Procedures Name Priority Associated Diagnoses Date/Ti me LAPAROSCOPY, WITH EXCISION O R FULGURATION OF LESIONS OF OVARY, PELVIC VISCERA, OR PERITONEAL SURFACE Cyst of left ovary 12/11/2024 9:25 EST documented as of this encounter Visit Diagnoses Diagnosis Acute pain of left knee- Primary Cyst of left ovary Other and unspecified ovarian cyst documented in this encounter Care Teams Manager Medicare Relationship Specialty Start Date End Date Kalyani Landeros DNP [address] [place] [address] PCP - General Family Medicine - Primary Care 11/05/20 11/26/22 documented as of this encounter
--- OUTSIDE RECORDS SUMMARY | 2024-12-08 15:30 | XMS_ITS | Encounter Summary ---
Author Organization [facility] Address [address] [place] [address] Care Team Providers Care Supervisor Engraving Name Role Phone Kalyani Landeros DNP Primary Care Provider [phone] Liz Aguilar DO Primary Care Provider [phone] Kalyani Douglas MD Primary Care Provider [phone] Liz Aguilar DO Unavailable [phone] Encounter Details Date Type Department Care Team (Late st Contact Info) Description 02/02/2021 Lab Requisition [facility] Pathology & Laboratory Medicine - [address] [address] Outr Resulting Lab, Provider Social History Tobacco [...] Description 12/11/2024 9:[address] [facility] [place] [address] [place] [address] [phone] Celeste Cooper MD [address] [place] [address] [phone] 12/11/2024 9:25 EST - 12/11/2024 11:[address] [facility] OR [address] [place] [address] [phone] Celeste Cooper MD [address] [place] [address] [phone] Laparoscopic left ovarian cystectomy [35393 (CPT??)] 12/31/2024 16:15 EST Post-op Visit [facility] OBGYN Services [address] [phone] Jessika Upton MD [address] [place] [address] [phone] 02/06/2025 13:10 EDT Appointment [facility] OBGYN Services [address] [phone] 03/05/2025 8:40 EDT Office Visit [facility] Rheumatology & Immunology [address] [phone] Nikolay Elizabeth MD [address], [address] [place] [phone] Scheduled Procedures Name Priority Associated Diagnoses Date/Ti me LAPAROSCOPY, WITH EXCISION O R FULGURATION OF LESIONS OF OVARY, PELVIC VISCERA, OR PERITONEAL SURFACE Cyst of left ovary 12/11/2024 9:25 EST documented as of this encounter Procedures Procedure Name Priority Date/Time Associated Diagnosis Comments PROLACTIN Routine 02/02/2021 16:30 EST ESTRADIOL, ADULTS Routine 02/02/2021 16: 30 EST FSH Routine 02/02/2021 16:30 EST documented in this encounter Results * PROLACTIN (02/02/2021 16:30 EST) Prolactin 7.4 See Table ng/mL 02/02/2021 23:[address] [facility] Comment: NOTE: Female Reference Ranges: PHYSIOLOGICAL STATUS ?EXPECTED RANGE ? Postmenopausal ?1.8 - 20.3 ng/mL ?9.7 - 208.5 ng/mL Non- ?2.8 - 29.2 ng/mL Reference Ranges for Prolactin in female patients <18 years old have not been established. Blood VENOUS BLOOD / Unknown 02/02/2021 16:30 EST 02/02/2021 22:14 EST us Provider Outr Resulting Lab CHEMISTRY & BLOOD GA S ORDERABLES Final Result [facility] [address] [place] [address] * FSH (02/02/2021 16:30 EST) FSH 6.6 See Note mIU/mL 02/02/2021 23:[address] [facility] Blood VENOUS BLOOD / Unknown 02/02/2021 16:30 EST 02/02/2021 22:[address] [facility] - 02/02/2021 23:03 EST NOTE: Female FSH Reference Ranges (>= 13 Menstruating): PHYSIOLOGICAL STATUS ? REFERENCE RANGE ? Follicular (-12 to -4 days): ?? 2.5 - 10.2 mIU/mL Midcycle (-3 to +2 days): ?3.4 - 33.4 mIU/mL Luteal (+4 to +12 days): ? 1.5 - 9.1 mIU/mL Postmenopausal: ?23.0 - 116.3 mIU/mL Reference Ranges for female patients <13 years old have not been established. Provider Outr Resulting Lab CHEMISTRY & BLOOD GA S ORDERABLES Final Result Performing Organization Address [facility] de Phone Number [facility] [address] [place] [address] * ESTRADIOL, ADULTS (02/02/2021 16:30 EST) [facility] Signature Estradiol 43 See Note pg/mL 02/02/2021 22:[address] [facility] Comment: NOTE: FEMALE REFERENCE RANGES: MENSTRUATING ? By cycle day relative to LH peak Follicular ?(-12 to -4 days) ??20-144 pg/mL Midcycle ?(-3 to +2 days) ?? 64-357 pg/mL Luteal ?(+4 t0 +12 days) ??56-214 pg/mL POSTMENOPAUSAL ?<32 pg/mL *Cross reactivity with Fulvestrant could lead to a falsely elevated estradiol result in patients treated with this drug. Blood VENOUS BLOOD / Unknown 02/02/2021 16:30 EST 02/02/2021 22:14 EST Provider Outr Resulting Lab CHEMISTRY & BLOOD GA S ORDERABLES Final Result Performing Organization Address [facility] de Phone Number [facility] [address] [place] [address] documented in this encounter Visit Diagnoses Not on filedocumented in this encounter Additional Health Concerns Infection Onset Date Last Indicated Resolved Time R/O COVID-19 12/23/2022 12/23/2022 12/23/2022 1:42 EST documented as of this encounter Care Teams Supervisor Engraving Relationship Specialty Start Date End Date Kalyani Landeros DNP [address] [place] [address] PCP - General Family Medicine - Primary Care 11/05/20 11/26/22 Liz Aguilar DO [address] [facility] [address] [place] [address] PCP - General Family Medicine - Primary Care 11/27/22 03/26/24 Kalyani Douglas MD [address] [place] [phone] PCP - General Family Medicine - Primary Care 03/27/24 Liz Aguilar DO [address] [facility] [address] [place] [address] Family Medicine - Primary Care 03/27/24 documented as of this encounter
--- OUTSIDE RECORDS SUMMARY | 2024-12-08 15:30 | XMS_ITS | Encounter Summary ---
Author Organization [facility] Address [address] [place] [address] Care Team Providers Care Network Infrastructure Architect Name Role Phone Kalyani Landeros KATHY Primary Care Provider [phone] Reason for Visit * Reason Onset Date Comments Prior Auth, Medication 02/18/2021 Encounter Details Date Type Department Care Team (Late st Contact Info) Description 02/18/2021 Telephone [facility] Family Medicine [address] [address] Fareed Gan RN Prior Auth, Medication Social [...] Refills Last Filled Start Date End Date methylphenidate (CONCERTA) 27 mg CR tablet Take 1 Tab by mouth daily. Daily Max: 27 mg 28 Tab 02/18/2021 02/19/2021 documented in this encounter Miscellaneous Notes * Telephone Encounter - Fareed Gan RN - 02/18/2021 0827 EDT Detailed VM left for the client. * Telephone Encounter - Kalyani Landeros APRN - 02/18/2021 0820 EDT Concerta sent. Please let her know. Thank you, Kalyani * Telephone Encounter - Fareed Gan RN - 02/18/2021 0810 EDT VENESSA esqueda received for the patient's methylphenidate 30 mg ER. Per the patient's formulary, she must try and fail a preferred product. Preferred Products: Aptensio XR Concerta Focalin Xr Quillichew ER Please recommend a preferred product. documented in this encounter Plan of Treatment Upcoming Encounters Date Type Department Care Team (Late st Contact Info) Description 12/11/2024 9:25 EST Hospital Encounter [facility] OR [address] [place] [address] [phone] Celeste Cooper MD [address] [place] [address] [phone] 12/11/2024 9:25 EST - 12/11/2024 11:40 EST Surgery [facility] OR [address] [place] [address] [phone] Celeste Cooper MD [address] [place] [phone] Laparoscopic left ovarian cystectomy [69838 (CPT??)] 12/31/2024 16:15 EST Post-op Visit [facility] OBGYN Services [address] [phone] Jessika Upton MD [address] [place] [address] [phone] 02/06/2025 13:10 EDT Appointment [facility] OBGYN Services [address] [phone] 03/05/2025 8:40 EDT Office Visit [facility] Rheumatology & Immunology [address] [phone] Nikolay Elizabeth MD M[facility] [address] [facility], [address] [place] [phone] Scheduled Procedures Name Priority Associated Diagnoses Date/Ti me LAPAROSCOPY, WITH EXCISION O R FULGURATION OF LESIONS OF OVARY, PELVIC VISCERA, OR PERITONEAL SURFACE Cyst of left ovary 12/11/2024 9:25 EST documented as of this encounter Visit Diagnoses Not on filedocumented in this encounter Discontinued Medications Medication Sig Discontinue Reason Start Date End Da te methylphenidate HCl (RITALIN LA) 30 mg LA capsuleIndications:Attent ion deficit hyperactivity disorder (ADHD), predominantly inattentive type Take 1 Cap by mouth daily. Daily Max: 30 mg Insurance does not cover 02/15/2021 02/18/2021 documented as of this encounter Care Teams Network Infrastructure Architect Relationship Specialty Start Date End Date Kalyani Landeors DNP [address] [place] [id number] PCP - General Family Medicine - Primary Care 11/05/20 11/26/22 documented as of this encounter
--- OUTSIDE RECORDS SUMMARY | 2024-12-08 15:30 | XMS_ITS | Encounter Summary ---
Author Organization [facility] Address [address] [place] [address] Care Team Providers Care Egyptologist Name Role Phone Kalyani Landeros DNP Primary Care Provider [phone] Reason for Visit * Reason Comments Advice Only * Consult (Routine) - Specialty Report Received Specialty Diagnoses / Procedures Referred By Seema kapoor Referred To Contact Obstetrics & Gynecology Diagnoses Amenorrhea Kalyani Landeros DNP Phone: tel: fax: [facility] OBGYN Services [address] [address] Phone: tel: fax: Referral ID Status Reason Start Date Expiration Date Visits Requested Visits Authorized [id number] Specialty Report Received Specialty Services Required 02/03/2021 1 1 Encounter Details Date Type Department Care Team (Late st Contact Info) Description 02/15/2021 9:00 EDT Initial consult [facility] OBGYN Services [address] [phone] Maryjo Quiñones MD Secondary amenorrhea (Primary Dx) Social History Tobacco Use Types [...] Sign Reading Time Taken Comments Blood Pressure 104/70 02/15/2021 0907 EDT Pulse - - Temperature - - Respiratory Rate - - Oxygen Saturation - - Inhaled Oxygen Concentration - - Weight 72.5 kg (159 lb 12.8 oz) 02/15/2021 0907 EDT Height 157.5 cm (5' 2.01) 02/15/2021 0907 EDT Body Mass Index 29.22 02/15/2021 0907 EDT documented in this encounter Functional Status [...] Answer Entry Date Author No 01/30/2020 23:20 YEHUDA Menjivar, Andrea pate RN documented in this encounter Ordered Prescriptions Prescription Sig Dispense Quantity Refills Last Filled Start Date End Date medroxyPROGESTERone (PROVERA) 10 mg tablet Take 1 Tab by mouth daily. 10 Tab 02/15/2021 03/11/2021 documented in this encounter Progress Notes * Maryjo Quiñones MD - 02/15/2021 0900 EDT Department of Obstetrics and Gynecology [facility] Clinic CC: Secondary amenorrhea HPI: Ulises presents today for evaluation re: recent changes in menstrual history and libido. She reports her last period was 11/18 and since then, she has had zero libido. She says usually I'm in tune with my body, I know when I'm ovulating, and what's going on but it's been a complete blur. Had labs done with her PCP and was told her hormones levels were WNL. - 02/02: PRL 7.4, FSH 6.6, Estradiol 43, TSH 1.38, bHCG neg Has taken several tests, they have all been negative. Patient had an in January. She had resumption of menses in March 2020. She then reports regularity through October. Since October, denies any dramatic weight gain or loss. Denies any new life stressors. Denies new exercise regimen. Denies any dramatic GI changes. Does report some discomfort with bowel movements. Denies any issues. Since October, she reports random, stabbing pains that feel similar to her ovulation pains of the past, but now feels them randomly rather than mid cycle. Denies exacerbating conditions. No relieving factors. Aggravated by movement. This happens bilaterally. Denies any radiating of pain, remainsin lower abdomen/pelvis. Last occurred yesterday. Has had intercourse 1-2x a month since October. Endorses new dyspareunia with intercourse. Feels that she is not aroused, brings on the stabbing pains. Pain with penetration. Mildly improved with lubricant. Denies any procedures or acute events that have happened since October. Usually has acne, greasy hair, mood instability that she notes before onset of menses. She has not had this the last 3 months. Denies any mid-cycle symptoms, as well. Denies increased pain with menses. Denies malodorous discharge. Denies any interpersonal conflict, new grooming or hygiene practices between her and her . In regards to her psych meds, patient has been on a variety of medications in the past including: - Vyvanse (most recently) - Celexa - Concerta - Wellbutrin - Every ADHD medication Does not endorse any distinct libido changes that she can remember. Review of Systems: See HPI. 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 Menarche @ 13 Reports regularity until q28-30 day cycle, lasting 5-7 days, bleeding normal; endorses occasional severe back cramping Contraceptive Hx, all pre-: - OCPs for 4-5 years: for regulation, acne as an adolescent; reported that she was very anemic while on this and had frequent syncopal episodes - IUD x 2: Copper IUD and Mirena IUD, 6 months for each one - Nexplanon - Reports AUB for both LARCs Since 01/2020, no contraception Last Pap: 2017: ASCUS 2019 NILM Hx of STIs: Denies No HPV vaccine OB History Para Term AB Living 3 1 1 0 2 1 SAB TAB Ectopic Multiple Live Births 0 2 0 0 1 # Outcome Date GA Lbr Juan Carlos/2nd Weight Sex Delivery Anes PTL Lv 3 Term 01/31/20 39w0d / 00:27 3350 g (7 lb 6.2 oz) F VIPUL 2 TAB 2018 10w0d 1 TAB 2017 4w0d PMH PSH Past Medical History: Diagnosis Date ??? ADHD (attention deficit hyperactivity disorder) ??? Anxiety ??? Depression ??? Dysmenorrhea ??? Low vitamin D level ??? PTSD (post-traumatic stress disorder) ??? Rubella non-immune status, antepartum 11/18/2019 Give pp ??? Sleep disorder ??? Thyromegaly ??? TMJ syndrome ??? Vaginal delivery 01/2020 no anesthesia ??? Vertigo Past Surgical History: Procedure Laterality Date ??? DILATION AND CURETTAGE OF UTERUS ??? WISDOM TOOTH EXTRACTION D&C for MAB in 2018 Social History Family History Social History Tobacco Use ??? Smoking status: Never Smoker ??? Smokeless tobacco: Never Used Substance Use Topics ??? Alcohol use: No Frequency: Never Family History Problem Relation Age of Onset ??? Hypertension Maternal Grandmother ??? Breast Cancer Maternal Grandmother 30 ??? SLE Maternal Grandmother ??? Arthritis-Osteo Maternal Grandmother ??? Osteoporosis Maternal Grandmother ??? Heart Disease Maternal Grandmother ??? Depression Maternal Grandmother ??? Hypertension Maternal Grandfather ??? Colon Cancer Maternal Grandfather ??? Depression Mother ??? Anxiety Disorder Mother ??? Mental Illness Mother ??? Depression Brother ??? Anxiety Disorder Brother ??? Diabetes Paternal Grandmother ??? Diabetes Paternal Grandfather Medications (Not in a hospital admission) Vyvanse 50mg (New x 1 month) Zofran PRN Allergies Allergies Allergen Reactions ??? Novocain [Procaine] Nausea And Vomiting Objective: Vitals: 02/15/21 0907 BP: 104/70 Weight: 72.5 kg (159 lb 12.8 oz) Height: 157.5 cm (62.01) Body mass index is 29.22 kg/m??. GEN: NAD, pleasant CV: RRR, no murmurs PULM: CTAB throughout, no wheezes. ABD: +BS, soft, NT, ND. PELVIC: Normal appearing external genitalia. Normal vaginal ruggae. Speculum exam reveals multiparous cervix without lesions. No bleeding. Bimanual exam reveals anteverted non-tender uterus, no cervical motion tenderness, no adnexal tenderness masses. No palpable pelvic floor contractures, no reproducible discomfort. Labs: N/A today Imaging: TVUS requested Assessment: Ulises Duffy is an 25 y.o. with secondary amenorrhea and libido changes in the setting of recent medication change and 1 year state. Has had normal initial laboratory workup. Denies any chance of and has had multiple negative UPTs with most recently clinic evaluation on 02/02 showing neg bHCG. No other pituitary hormone abnormalities. No signs of hyperandrogenism. Discussed differential dx of libido changes 2/2 psychiatric medication, pelvic floor health. Will interrogate HPO axis by pursuing progestin withdrawal bleed. Plan: - Provera 10mg daily x 10 days, reviewed she should have withdrawal bleed within 1-2 days - Recommend benefiber daily to avoid constipation symptoms and promote general pelvic floor health;can consider Pelvic floor PT with ongoing issues - TVUS ordered to rule out structural anomalies though ultimately HyCoSy or hysteroscopy would needto be performed to diagnose intrauterine adhesions; low likelihood of patient having PCOS diagnosedat this point when she's had regular menses since menarche but will be able to assess ovarian volume - Recommend liberal use of lubrication for intercourse, if patient decides to pursue ; has had a vasectomy, no need for alternate form of control at this time Patient discussed and plan directly developed with attending physician Dr. Celeste Cooper MD. Maryjo Quiñones MD 02/15/2021 9:13 * Celeste Cooper MD - 02/15/2021 0900 EDT Attestation statement: I discussed the patient with the resident at the time of the visit. I agree with the findings and the plan of care documented in the resident's note. Celeste Cooper MD 03/15/2021 11:26 documented in this encounter Plan of Treatment Upcoming Encounters Date Type Department Care Team (Late st Contact Info) Description 12/11/2024 9:25 [facility] Hospital Encounter [facility] OR [address] [place] [address] [phone] Celeste Cooper MD [address] [place] [phone] 12/11/2024 9:25 EST - 12/11/2024 11:40 EST Surgery [facility] OR [address] [place] [phone] Celeste Cooper MD [address] [place] [address] [phone] Laparoscopic left ovarian cystectomy [11579 (CPT??)] 12/31/2024 16:15 EST Post-op Visit [facility] OBGYN Services [address] [id number] Jessika Upton MD [address] [place] [address] [phone] 02/06/2025 13:10 EDT Appointment [facility] OBGYN Services [address] [phone] 03/05/2025 8:40 EDT Office Visit [facility] Rheumatology & Immunology - [address] [phone] Nikolay Elizabeth MD [address], [facility] [address] [place] [phone] Scheduled Procedures Name Priority Associated Diagnoses Date/Ti me LAPAROSCOPY, WITH EXCISION O R FULGURATION OF LESIONS OF OVARY, PELVIC VISCERA, OR PERITONEAL SURFACE Cyst of left ovary 12/11/2024 9:25 EST documented as of this encounter Visit Diagnoses Diagnosis Secondary amenorrhea- Primary Absence of menstruation Cyst of left ovary Other and unspecified ovarian cyst documented in this encounter Care Teams Egyptologist Relationship Specialty Start Date End Date Kalyani Landeros DNP [address] [place] [phone] PCP - General Family Medicine - Primary Care 11/05/20 11/26/22 documented as of this encounter
--- OUTSIDE RECORDS SUMMARY | 2024-12-08 15:30 | XMS_ITS | Encounter Summary ---
Author Organization [facility] Address [address] [place] [address] Care Team Providers Care Dairy Management Specialist Name Role Phone Kalyani Landeros DNP Primary Care Provider [phone] Reason for Visit * Reason Comments Other Vyvance and adderall Encounter Details Date Type Department Care Team (Latest Contact Info) Description 10/11/2021 9:00 EST Telemedicine [facility] Integrative Family Medicine [address] [phone] Kalyani Landeros DNP [address] [place] [address] Attention deficit hyperactivity disorder (ADHD), predominantly inattentive type (Primary Dx); Attention deficit hyperactivity disorder (ADHD), unspecified ADHD type; Nausea; Acne vulgaris Social History Tobacco Use Types Packs/Day Years [...] - Inhaled Oxygen Concentration - - Weight 70.8 kg (156 lb) 10/11/2021 0842 EST Height 157.5 cm (5' 2.01) 10/11/2021 0842 EST Body Mass Index 28.53 10/11/2021 0842 EST documented in this encounter Functional Status [...] Filled Start Date End Date lisdexamfetamine (VYVANSE) 50 mg capsuleIndications:A ttention deficit hyperactivity disorder (ADHD), unspecified ADHD type Take 1 capsule by mouth every morning. Daily Max: 50 mg 28 capsule 10/11/2021 ondansetron (ZOFRAN-ODT) 4 mg disintegrating tabletIndications:Na usea Take 1 Tablet by mouth every 8 hours as needed for Nausea. 12 Tablet 3 10/11/2021 2 lisdexamfetamine (VYVANSE) 50 mg capsuleIndications:A ttention deficit hyperactivity disorder (ADHD), unspecified ADHD type Take 1 capsule by mouth every morning. Daily Max: 50 mg 28 capsule 10/11/2021 1 documented in this encounter Progress Notes * Kalyani Landeros APRN - 10/11/2021 0900 EST [facility] Video Visit Today's visit was provided through [...] or auxiliary staff: yes. Subjective: Chief Complaint(s): Other (Vyvance and adderall) HPI: Ulises had been taking Vyvanse 50 mg daily along with Strattera 100 mg daily for treatment of ADHD.She stopped these medications due to concern that it was having a negative impact on her libido. However, there is been no change in her libido despite not taking these medications. She finds that the Vyvanse is effective for approximately 6 hours and then she crashes. She has not found the Strattera necessarily beneficial. She met with a psychiatrist at the [facility] (Dr. Daniel) who recommended a combination of Vyvanse, short acting Adderall, and Zoloft. Previous treatment - adderall (depressed), concerta (zombie), Wellbutrin (worked for years but then panic attacks when taken ), celexa (numb). She reports having the worst acne x 1-2 months. She has tried over the counter cleansers and toners. She would like to see a technical aid. I have reviewed current problem list and current medications. ROS Cardiovascular: Negative for palpitations. Gastrointestinal: Negative for abdominal pain. Neurological: Negative for dizziness and headaches. Objective: Examination: Home Vitals: Ht 157.5 cm (62.01) Wt 70.8 kg (156 lb) BMI 28.53 kg/m?? Pertinent exam findings: GENERAL APPEARANCE: no acute distress, pleasant, cooperative. HEENT EYES:, conjunctiva clear. NECK: supple LUNGS: unlabored SKIN: warm & dry. NEUROLOGIC EXAM: alert & oriented x3 PSYCH: mood appropriate, affect full range Data reviewed with patient: last note ; Dr. Daniel consult Assessment & Plan: 1. Attention deficit hyperactivity disorder (ADHD), predominantly inattentive type Continue Vyvanse 50mg/day. Will need CSA. I recommend follow up w/ Dr. Daniel or referral to Family Psychiatry. 2. Nausea Rx sent for PRN use (nausea w/ menses). - ondansetron (ZOFRAN-ODT) 4 mg disintegrating tablet; Take 1 Tablet by mouth every 8 hours as needed for Nausea. Dispense: 12 Tablet; Refill: 3 4. Acne vulgaris Referred to [facility]. - AMB CONS/FOLLOW UP DERMATOLOGY; Future I spent a total of 25 minutes on the date of this encounter meeting with the patient and reviewing documentation/coordinating care as described in the above note. The following individuals and their role did participate in today's encounter visit: Provider: Kalyani Landeros APRN Patient Portions of this document may contain text elements generated through computerized voice recognition technology. Undetected computer-generated word errors are possible. Please notify the signing provider if clarification or correction is needed. documented in this encounter Plan of Treatment Upcoming Encounters Date Type Department Care Team (Late st Contact Info) Description 12/11/2024 9:25 EST Hospital Encounter [facility] [place] [address] [place] [address] Celeste Cooper MD [address] [facility], [facility], [address] [place] [phone] 12/11/2024 9:25 EST - 12/11/2024 11:40 EST Surgery [facility] [place] [address] [place] [phone] Celeste Cooper MD [address] [place] [address] [address] [place] [phone] Laparoscopic left ovarian cystectomy [75253 (CPT??)] 12/31/2024 16:15 EST Post-op Visit [facility] OBGYN Services [address] [phone] Jessika Upton MD [address] [place] [phone] 02/06/2025 13:10 EDT Appointment [facility] [address] [phone] 03/05/2025 8:40 EDT Office Visit [facility] Rheumatology & Immunology - [address] [phone] Nikolay Elizabeth MD MPH [address] [place] [address], [facility] [address] [place] [phone] Scheduled Procedures Name Priority Associated Diagnoses Date/Ti id LAPAROSCOPY, WITH EXCISION O R FULGURATION OF LESIONS OF OVARY, PELVIC VISCERA, OR PERITONEAL SURFACE Cyst of left ovary 12/11/2024 9:25 EST documented as of this encounter Visit Diagnoses Diagnosis Attention deficit hyperactivity disorder (ADHD), predominantly inattentive type- Primary Attention deficit hyperactivity disorder (ADHD), unspecified ADHD type Nausea Nausea alone Acne vulgaris Other acne Cyst of left ovary Other and unspecified ovarian cyst documented in this encounter Discontinued Medications Medication Sig Discontinue Reason Start Date End Da te lisdexamfetamine (VYVANSE) 50 mg capsuleIndications:Attenti on deficit hyperactivity disorder (ADHD), unspecified ADHD type Take 1 Cap by mouth every morning. Daily Max: 50 mg Reorder 03/03/2021 10/11/2021 ondansetron (ZOFRAN-ODT) 4 mg disintegrating tabletIndications:Nausea Take 1 Tab by mouth every 8 hours as needed for Nausea. Reorder 04/01/2021 10/11/2021 lisdexamfetamine (VYVANSE) 50 mg capsuleIndications:Attenti on deficit hyperactivity disorder (ADHD), unspecified ADHD type Take 1 capsule by mouth every morning. Daily Max: 50 mg Therapy completed 10/11/2021 10/11/2021 atomoxetine (STRATTERA) 100 mg capsuleIndications:Attenti on deficit hyperactivity disorder (ADHD), unspecified ADHD type Take 1 Cap by mouth daily. Therapy completed 04/09/2021 10/11/2021 documented as of this encounter Care Teams Dairy Management Specialist Relationship Specialty Start Date End Date Kalyani Landeros DNP [address] [place] [phone] PCP - General Family Medicine - Primary Care 11/05/20 11/26/22 documented as of this encounter
--- OUTSIDE RECORDS SUMMARY | 2024-12-08 15:30 | XMS_ITS | Encounter Summary ---
Author Organization [facility] Address [address] [place] [address] Care Team Providers Care Associate Professor Of Biostatistics Name Role Phone Kalyani Landeros DNP Primary Care Provider Encounter Details Date Type Department Care Team (Late st Contact Info) Description 02/02/2021 Results Only [facility] - [facility] Integrative Family Medicine [address] [phone] Kalyani Landeros DNP [address] [place] [address] Social History Tobacco Use Types Packs/Day Years [...] (Late st Contact Info) Description 12/11/2024 9:25 [facility] Hospital Encounter [facility] [place] [address] [place] [phone] Celeste Cooper MD [address] [place] [phone] 12/11/2024 9:25 EST - 12/11/2024 11:40 [facility] Surgery [facility] [place] [address] [place] [phone] Celeste Cooper MD [address] [place] [phone] Laparoscopic left ovarian cystectomy [21577 (CPT??)] 12/31/2024 16:15 EST Post-op Visit [facility] OBGYN Services [address] [phone] Jessika Upton MD [address] [place] [phone] 02/06/2025 13:10 EDT Appointment [facility] OBGYN Services [address] [phone] 03/05/2025 8:40 EDT Office Visit [facility] Rheumatology & Immunology [address] [phone] Nikolay Elizabeth MD MPH [address] [place] [address], [address] [place] [phone] Scheduled Procedures Name Priority Associated Diagnoses Date/Ti me LAPAROSCOPY, WITH EXCISION O R FULGURATION OF LESIONS OF OVARY, PELVIC VISCERA, OR PERITONEAL SURFACE Cyst of left ovary 12/11/2024 9:25 EST documented as of this encounter Procedures Procedure Name Priority Date/Time Associated Diagnosis Comments VIT D, 25-HYDROXY - [facility] Routine 02/02/2021 16:30 EST [facility] SCREEN (URINE) Routine 02/02/2021 1 6:30 EST PROLACTIN Routine 02/02/2021 16:30 EST ESTRADIOL, ADULTS Routine 02/02/2021 16: 30 EST TSH Routine 02/02/2021 16:30 EST FSH Routine 02/02/2021 16:30 EST documented in this encounter Results * PROLACTIN (02/02/2021 16:30 EST) Prolactin 7.4 See Table ng/mL 02/03/2021 5:28 EST [facility] Comment: NOTE: Female Reference Ranges: PHYSIOLOGICAL STATUS ?EXPECTED RANGE ? Postmenopausal ?1.8 - 20.3 ng/mL ?9.7 - 208.5 ng/mL Non- ?2.8 - 29.2 ng/mL Reference Ranges for Prolactin in female patients <18 years old have not been established. Test [place] [address] 02/02/2021 16:3 0 EST 02/02/2021 16:30 EST Narrative [facility] - 02/03/2021 5:28 EST Does PT Have a Latex Allergy? NO us Kalyani Landeros DNP CHEMISTRY & BLOOD GAS ORDERABLES Final Result Performing Organization Address City/State/[facility] Co de Phone Number [facility] [address] [place] [address] * FSH (02/02/2021 16:30 EST) Pathologist [facility] 6.6 See Note mIU/mL 02/03/2021 5:28 EST [facility] Comment: NOTE: Female FSH Reference Ranges (>= 13 Menstruating): PHYSIOLOGICAL STATUS ? REFERENCE RANGE ? Follicular (-12 to -4 days): ?? 2.5 - 10.2 mIU/mL Midcycle (-3 to +2 days): ?3.4 - 33.4 mIU/mL Luteal (+4 to +12 days): ? 1.5 - 9.1 mIU/mL Postmenopausal: ?23.0 - 116.3 mIU/mL Reference Ranges for female patients <13 years old have not been established. Test [place] [address] 02/02/2021 16:3 0 EST 02/02/2021 16:30 EST Narrative [facility] - 02/03/2021 5:28 EST Does PT Have a Latex Allergy? NO Kalyani Landeros [facility] CHEMISTRY & BLOOD GAS ORDERABLES Final Result Performing Organization Address City/State/[facility] de Phone Number [facility] [address] [place] [address] * ESTRADIOL, ADULTS (02/02/2021 16:30 EST) Estradiol 43 See Note pg/mL 02/03/2021 5:28 EST [facility] Comment: NOTE: FEMALE REFERENCE RANGES: MENSTRUATING ? By cycle day relative to LH peak Follicular ?(-12 to -4 days) ??20-144 pg/mL Midcycle ?(-3 to +2 days) ?? 64-357 pg/mL Luteal ?(+4 t0 +12 days) ??56-214 pg/mL POSTMENOPAUSAL ?<32 pg/mL *Cross reactivity with Fulvestrant could lead to a falsely elevated estradiol result in patients treated with this drug. Test [place] [address] 02/02/2021 16:3 0 EST 02/02/2021 16:30 EST Narrative [facility] - 02/03/2021 5:28 EST Does PT Have a Latex Allergy? NO Result [facility] Kalyani Landeros [facility] CHEMISTRY & BLOOD GAS ORDERABLES Final Result Performing Organization Address [facility]/ZIP Co de Phone Number [facility] [address] [place] [address] * (ABNORMAL) VIT D, 25-HYDROXY - [facility] (02/02/2021 16:30 EST) Pathologist [facility] VIT D, 25 HYDROXY - [facility] 29.2(L) 30 - 100 ng/ml 02/02/2021 18:01 EST [facility] Comment: ? 25-Hydroxy D Total (D2+D3) ?Expected Values Deficient: ?<20 ng/ml Insufficient: ? 20- <30 ng/ml Sufficient: ? 30-100 ng/ml Potential intoxication: >100 ng/ml 02/02/2021 16:3 0 EST 02/02/2021 16:30 EST Narrative [facility] - 02/02/2021 18:01 EST Does PT Have a Latex Allergy? NO Result [facility] Kalyani Landeros [facility] CHEMISTRY & BLOOD GAS ORDERABLES Final Result Performing Organization Address [facility] Co de Phone Number [facility] [address] [place] [address] * TSH (02/02/2021 16:30 EST) [facility] THYROID STIM HORMONE - CV 1.38 0.46 - 4.68 uIU/ml 02/02/2021 18:01 EST [facility] Comment: The results of this assay can be falsely lowered due to the consumption of Biotin. 02/02/2021 16:3 0 EST 02/02/2021 16:30 EST Narrative [facility] - 02/02/2021 18:01 EST Does PT Have a Latex Allergy? NO Kalyani Landeros DNP CHEMISTRY & BLOOD GAS ORDERABLES Final Result Performing Organization Address City/[facility]/ZIP Co de Phone Number [facility] [address] [place] [address] * [facility] SCREEN (URINE) - [facility] (02/02/2021 16:30 EST) [facility] SCREEN (URINE) - [facility] NEG 02/02/2021 17:20 EST [facility] 02/02/2021 16:3 0 EST 02/02/2021 16:30 EST Narrative [facility] - 02/02/2021 17:20 EST Does PT Have a Latex Allergy? NO Enter/Edit CPT and ICD codes? N Kalyani Landeros DNP CHEMISTRY & BLOOD GAS ORDERABLES Final Result Performing Organization Address City/[facility] Co de Phone Number [facility] [address] [place] [address] documented in this encounter Visit Diagnoses Not on filedocumented in this encounter Care Teams Associate Professor Of Biostatistics Relationship Specialty Start Date End Date Kalyani Landeros DNP [address] [place] [address] PCP - General Family Medicine - Primary Care 11/05/20 11/26/22 documented as of this encounter
--- OUTSIDE RECORDS SUMMARY | 2024-12-08 15:30 | XMS_ITS | Encounter Summary ---
Author Organization [facility] Address [address] [place] [address] Care Team Providers Care Manager Clinical Applications Name Role Phone Kalyani Landeros DNP Primary Care Provider [phone] Reason for Visit * Reason Comments Establish Care Anxiety Depression Encounter Details Date Type Department Care Team (Late st Contact Info) Description 11/05/2020 15:00 EST Telemedicine [facility] Integrative Family Medicine [facility] [address] [place], [place] [phone] Kalyani Landeros DNP [address] [place] [address] Encounter to establish care (Primary Dx); Anxiety; Moderate episode of recurrent major depressive disorder ([facility]-CMS) Social History Tobacco Use Types Packs/Day [...] Taken Comments Blood Pressure - - Pulse 84 11/05/2020 1505 EST Temperature - - Respiratory Rate - - Oxygen Saturation - - Inhaled Oxygen Concentration - - Weight 71.2 kg (157 lb) 11/05/2020 1505 EST Height 157.5 cm (5' 2) 11/05/2020 1505 EST Body Mass Index 28.72 11/05/2020 1505 EST documented in this encounter Functional Status [...] Refills Last Filled Start Date End Date ALPRAZolam (XANAX) 0.5 mg tabletIndications: Anxiety Take 1 Tab by mouth at bedtime as needed for Sleep. Daily Max: 0.5 mg 15 Tab 1 11/05/2020 0 citalopram (CELEXA) 10 mg tabletIndications: Anxiety,Moderate episode of recurrent major depressive disorder (HCC-CMS) Take 1 Tab by mouth daily. 30 Tab 2 11/05/2020 1 documented in this encounter Progress Notes * Kalyani Landeros, MORENA - 11/05/2020 1500 EST [facility] Video Visit Today's visit was provided through [...] or auxiliary staff: yes. Subjective: Chief Complaint(s): Establish Care, Anxiety, and Depression HPI: Behavioral Health Screen Summary Interpretation PHQ-2: 3 PHQ-9: 11 Moderate Depression MELANIA-2: 5 MELANIA-7: 12 Moderate Anxiety SASQ: Never AUDIT-10: SSASQ: Never DAST-10: . Supports - tyra (French) and her mother. Has a therapist, weekly appointments. Recent increased anxiety (fear of ). Has decreased Wellbutrin XL from 450mg to 300mg/day as she thinks the Wellbutrin was increasing her anxiety. Sparing use of xanax. 9-months . I have reviewed patient's tobacco history: reports that she has never smoked. She has never used smokeless tobacco. I have reviewed current problem list and current medications. Review of Systems Constitutional: Negative for chills, fever, malaise/fatigue and weight loss. HENT: Negative for congestion and hearing loss. Eyes: Negative for blurred vision and pain. Respiratory: Negative for cough and shortness of breath. Cardiovascular: Negative for chest pain and palpitations. Gastrointestinal: Negative for abdominal pain, constipation, diarrhea, heartburn and nausea. Genitourinary: Negative for dysuria and frequency. Musculoskeletal: Negative for joint pain and myalgias. Skin: Negative for itching and rash. Neurological: Negative for dizziness and headaches. Psychiatric/Behavioral: Positive for depression. The patient is nervous/anxious and has insomnia. Objective: Examination: Home Vitals: Pulse 84 Ht 157.5 cm (62) Wt 71.2 kg (157 lb) No BMI 28.72 kg/m?? Pertinent exam findings: GENERAL APPEARANCE: no acute distress, pleasant, cooperative. HEENT EYES:, conjunctiva clear. NECK: supple LUNGS: unlabored SKIN: warm & dry. NEUROLOGIC EXAM: alert & oriented x3 PSYCH: mood appropriate, affect full range Data reviewed with patient: last note Assessment & Plan: 1. Encounter to establish care I have reviewed the patient's medical history in detail and updated the computerized patient record. 2. Anxiety Continue with counseling. Discussed adding SSRI medication to her current pharmacologic treatment. Will start with citalopram 10 mg daily. Will titrate as tolerated. Therapeutic benefits and side effects reviewed. - citalopram (CELEXA) 10 mg tablet; Take 1 Tab by mouth daily. Dispense: 30 Tab; Refill: 2 - ALPRAZolam (XANAX) 0.5 mg tablet; Take 1 Tab by mouth at bedtime as needed for Sleep. Daily Max: 0.5 mg Dispense: 15 Tab; Refill: 1 3. Moderate episode of recurrent major depressive disorder (HCC-CMS) Continue bupropion XL 300 mg daily. - citalopram (CELEXA) 10 mg tablet; Take 1 Tab by mouth daily. Dispense: 30 Tab; Refill: 2 A total of 30 minutes was spent on this encounter on the day of this encounter. The following individuals and their role did participate in today's encounter visit: Provider: Kalyani Landeros APRN Patient documented in this encounter Plan of Treatment Upcoming Encounters Date Type Department Care Team (Late st Contact Info) Description 12/11/2024 9:25 EST Hospital Encounter [facility] OR [address] [place] [address] Celeste Cooper MD 111 [facility], Level [address] [place] [phone] 12/11/2024 9:25 EST - 12/11/2024 11:40 EST Surgery [facility] OR [address] [place] [phone] Celeste Cooper MD [address] [place] [address] [address] [place] [phone] Laparoscopic left ovarian cystectomy [05653 (CPT??)] 12/31/2024 16:15 EST Post-op Visit [facility] OBGYN Services - [address] [phone] Jessika Upton MD [address] [place] [phone] 02/06/2025 13:10 EDT Appointment [facility] [address] [phone] 03/05/2025 8:40 EDT Office Visit [facility] Rheumatology & Immunology - [address] [phone] Nikolay Elizabeth MD [address], [facility] [address] [place] [phone] Scheduled Procedures Name Priority Associated Diagnoses Date/Ti co LAPAROSCOPY, WITH EXCISION O R FULGURATION OF LESIONS OF OVARY, PELVIC VISCERA, OR PERITONEAL SURFACE Cyst of left ovary 12/11/2024 9:25 EST documented as of this encounter Visit Diagnoses Diagnosis Encounter to establish care- Primary Other reasons for seeking consultation Anxiety Anxiety state, unspecified Moderate episode of recurrent major depressive disorder (HCC-CMS) Cyst of left ovary Other and unspecified ovarian cyst documented in this encounter Discontinued Medications Medication Sig Discontinue Reason Start Date End Da te LORazepam (ATIVAN) 0.5 mg tablet 1 tab(s) orally 2 times a day PRN Therapy completed 04/19/2019 11/05/2020 ALPRAZolam (XANAX) 0.5 mg tablet 1 tab(s) orally Daily PRN Reorder 04/16/2019 11/05/2020 documented as of this encounter Care Teams Manager Clinical Applications Relationship Specialty Start Date End Date Kalyani Landeros DNP [address] [place] [phone] PCP - General Family Medicine - Primary Care 11/05/20 11/26/22 documented as of this encounter
--- OUTSIDE RECORDS SUMMARY | 2024-12-08 15:30 | XMS_ITS | Encounter Summary ---
Author Organization [facility] Address [address] [place] [address] Care Team Providers Care Mobility Specialist Name Role Phone Kalyani Landeros KATHY Primary Care Provider [phone] Reason for Visit * Reason Onset Date Comments Medications Refill 05/16/2022 Encounter Details Date Type Department Care Team (Late st Contact Info) Description 05/16/2022 Refill [facility] Integrative Family Medicine [address] [address] Eloise Pineda RN Medications Refill Social History [...] morning. Daily Max: 30 mg 28 capsule 05/16/2022 2 documented in this encounter Miscellaneous Notes * Telephone Encounter - Eloise Pineda RN - 05/16/2022 1406 EDT Refill [facility] to [facility] - 10/11/21 NOV - none last refill - 04/18/22, #28 for 28 days NR No CSA on file VPMS - last p/u 04/18/22, #28 OK to refill? documented in this encounter Plan of Treatment Upcoming Encounters Date Type Department Care Team (Late st Contact Info) Description 12/11/2024 9:25 EST Hospital Encounter [facility] [place] [address] [place] [phone] Celeste Cooper MD [address] [place] [address] [address] [place] [phone] 12/11/2024 9:25 EST - 12/11/2024 11:40 EST Surgery [facility] OR [address] [place] [address] [phone] Celeste Cooper MD [address] [place] [address] 4 [place] [phone] Laparoscopic left ovarian cystectomy [95220 (CPT??)] 12/31/2024 16:15 EST Post-op Visit [facility] OBGYN Services - [address] [phone] Jessika Upton MD [address] [place] [phone] 02/06/2025 13:10 EDT Appointment [facility] Services [address] [phone] 03/05/2025 8:40 EDT Office Visit [facility] Rheumatology & Immunology - [address] [phone] Nikolay Elizabeth MD MPH [address] [place] [address] [address] [place] [phone] Scheduled Procedures Name Priority Associated Diagnoses Date/Ti ok LAPAROSCOPY, WITH EXCISION O R FULGURATION OF [...] every morning. Daily Max: 30 mg Reorder 04/18/2022 05/16/2022 documented as of this encounter Care Teams Mobility Specialist Relationship Specialty Start Date End Date Kalyani Landeros DNP [address] [place] [phone] PCP - General Family Medicine - Primary Care 11/05/20 11/26/22 documented as of this encounter
--- OUTSIDE RECORDS SUMMARY | 2024-12-08 15:30 | XMS_ITS | Encounter Summary ---
Author Organization [facility] Address [address] [place] [address] Care Team Providers Care Client Support Consultant Name Role Phone Zina Monroy Primary Care Provider [phone] Encounter Details Date Type Department Care Team (Latest Contact Info) Description 08/05/2020 9:10 EDT - 08/05/2020 23:59 EDT Hospital Encounter [facility] Pre-Surgical Testing [address] [place] [address] Discharge Disposition: Home or Self Care Social [...] PHQ-2 Answer Date Recorded PHQ-2 Score 0 06/28/2020 Interpersonal Safety Answer Date Record ed Physically [...] - Inhaled Oxygen Concentration - - Weight 75.8 kg (167 lb) 08/05/2020930 EDT Height 157.5 cm (5' 2) 08/05/2020930 EDT Body Mass Index 30.54 08/05/2020930 EDT documented in this encounter Functional Status [...] Answer Entry Date Author No 01/30/2020 23:20 Adnrea Wilson ace, RN documented in this encounter Medications at Time of Discharge ibuprofen (MOTRIN) 400 mg tablet Take 1 Tab by mouth every 4 hours as needed for Pain. 02/02/2020 acetaminophen (TYLENOL) 325 mg tablet Take 2 Tabs by mouth every 4 hours as needed for Pain. 02/02/2020 10/21/2020 ALPRAZolam (XANAX) 0.5 mg tablet 1 tab(s) orally Daily PRN 04/16/2019 11/05/2020 buPROPion (WELLBUTRIN XL) 300 mg XL tablet Take 300 mg by mouth daily. 10/21/2020 drospirenone-ethi nyl estradioL (JACQUIE) 3-0.02 mg per tablet 1 tab(s) orally once a day 12/14/2018 10/21/2020 LORazepam (ATIVAN) 0.5 mg tablet 1 tab(s) orally 2 times a day PRN 04/19/2019 11/05/2020 documented as of this encounter Discharge Disposition Disposition Code Departure Means Destination Home or Self Care documented in this encounter Progress Notes * Kimberley Douglas RN - 08/05/2020 0910 EDT COVID 19 Screening Perioperative at time of PAT Please document by exception (only check those that apply). Have you had any of the following symptoms recently?Denies Yes Chronic ? Cough Shortness of breath or difficulty breathing Fever Chills Fatigue Muscle or body aches Severe Headache New loss of taste or smell Sore throat Congestion or runny nose Rash Nausea, vomiting, or diarrhea (rare in adults. More common in children) Please elaborate if yes: If a chronic symptom is reported use your judgement if an anesthesia review is needed. Have you been in close contact with someone who has been diagnosed with Covid 19?No (close contact, within 6 feet of any person known to have Coronavirus in the past 14 days) If past COVID + test results in chart: ??? Complete call, Place for Anesthesia Review ??? Do not give COVID+ DOS arrival instructions unless anes review deems necessary Negative COVID screen: Please file negative COVID screening under a progress note Negative screening is no symptoms or patient reporting a chronic symptom that does not need an anesthesia review Positive COVID screen: Patient answers yes to the question(s) and it is not a chronic symptom RN to flag this chart for anesthesia review and complete call Please file positive COVID screening under a PAT note If patient develops any of these symptoms between now and their surgery date instruct them to call us back at [phone] to report symptoms (If patient is in Surgical Admissions and answers yes, please notify Surgery and Anesthesia team). Follow proper precautions- yellow mask to patient/family. [place]: Visitor Policy: OP- one non-sick escort in waiting room, no visitors/escort in PreOp, one visitor in PACU for 10 mins at end of recovery Exceptions: Child-1 parent, special needs- 1 caregiver For safety concerns on ride home: second parent or caregiver may come to hospital but will have to wait in cell phone lot IP- One non-sick visitor/escort in waiting room, no visitors/escort in PreOp, one visitor in PACU for 10 mins at end of recovery. One designated visitor is allowed to visit the patient on the in patient unit. Pediatric patient: ??? Both parents can come with child DOS, one is allowed with child in PreOp/PACU, one has to wait in the waiting room ??? Due to COVID 19 no parents are allowed to go back to OR. ??? Explain IV/Mask induction. IV or mask will be available for pedi patients who are asymptomatic and test COVID negative. ??? If parent declines or no test results, Pt will get IV in PreOp, except PE tubes. For State tracking purposes, the parents of these children will be asked to consent to having their child COVID tested under anesthesia. ??? Unsedated children will be allowed one parents in the OR room for support. ??? RN to provide education on IV's and request Emla to be placed (RX from PCP) prior to coming in with them. ? ? Patient > 1 yo: Emla takes one hour to work, place quarter size amount on 4 places - top of hands and inner elbow, cover with tegaderm or saran wrap. Children under age of 16 y.o. are not permitted. Only ADA service animals are permitted into the hospital. All other animals, including previously approved therapy/support animals, are not allowed at this time. (No animals will be allowed into Preop, OR, or PACU) Visitor Policy Roxana Jerome: - One non-sick escort/visitor in waiting room, no visitors/escort in PeriOp - Same exceptions apply as main campus: children and special needs - Visitors/rides home that are not in waiting room should be within 15 mins away - Visitors must have mask for pickup documented in this encounter OR Notes * Preprocedure Instructions - Kimberley Douglas, RN - 08/05/2020 0910 EDT [facility] has been instructed as follows regarding medication administration for the day of the scheduled procedure. Date of Surgery: 08/12/20 Instructions for Taking Medications Day of Surgery Medication Sig Last Dose Hold DOS Take DOS acetaminophen (TYLENOL) 325 mg tablet Take 2 Tabs by mouth every 4 hours as needed for Pain. Yes buPROPion (WELLBUTRIN XL) 300 mg XL tablet Take 300 mg by mouth daily. Yes ibuprofen (MOTRIN) 400 mg tablet Take 1 Tab by mouth every 4 hours as needed for Pain. None recently-will hold as of PAT documented in this encounter Plan of Treatment Upcoming Encounters Date Type Department Care Team (Late st Contact Info) Description 12/11/2024 9:25 EST Hospital Encounter [facility] OR [address] [place] [address] [phone] Celeste Cooper MD [address] [place] [address] [phone] 12/11/2024 9:25 EST - 12/11/2024 11:40 EST Surgery [facility] OR [address] [place] [address] [phone] Celeste Cooper MD [address] [place] [address] [phone] Laparoscopic left ovarian cystectomy [16046 (CPT??)] 12/31/2024 16:15 EST Post-op Visit [facility] OBGYN Services - [address] [phone] Jessika Upton MD [address] [place] [address] [phone] 02/06/2025 13:10 EDT Appointment [facility] OBGYN Services - [address] [phone] 03/05/2025 8:40 EDT Office Visit [facility] Rheumatology & Immunology - [address] [address] Nikolay Elizabeth MD MPH [address] [facility], Level [address] [place] [phone] Scheduled Procedures Name Priority Associated Diagnoses Date/Ti me LAPAROSCOPY, WITH EXCISION O R FULGURATION OF LESIONS OF OVARY, PELVIC VISCERA, OR PERITONEAL SURFACE Cyst of left ovary 12/11/2024 9:25 EST documented as of this encounter Visit Diagnoses Not on filedocumented in this encounter Discontinued Medications Medication Sig Discontinue Reason Start Date End Da te multivitamin vit-iron fumarate-FA (STUARTNATAL) 27 mg iron- 1 mg tablet tablet Take 1 Tab by mouth daily. Therapy completed 02/03/2020 08/05/2020 vit calc,iron,folic ( VITAMIN ORAL) Take by mouth. Therapy completed 2019 docusate sodium (COLACE) 100 mg capsule Take 1 Cap by mouth 2 times daily as needed for Constipation. Therapy completed 02/02/2020 08/05/2020 documented as of this encounter Historical Medications * This list may reflect changes made after this encounter. buPROPion (WELLBUTRIN XL) 300 mg XL tablet Take 300 mg by mouth daily. 10/21/2020 added in this encounter Care Teams Client Support Consultant Relationship Specialty Start Date End Date Zina Monroy DO PCP - General 05/27/19 08/05/20 documented as of this encounter
--- OUTSIDE RECORDS SUMMARY | 2024-12-08 15:30 | XMS_ITS | Encounter Summary ---
Author Organization [facility] Address [address] [place] [address] Care Team Providers Care Lithoplate Maker Name Role Phone Kalyani Landeros DNP Primary Care Provider [phone] Reason for Visit * Reason Comments Follow-up ADHD Encounter Details Date Type Department Care Team (Latest Contact Info) Description 02/01/2021 11:30 EST Telemedicine [facility] Integrative Family Medicine [facility] [address] [place], [place] [phone] Kalyani Landeros DNP [address] [place] [address] Attention deficit hyperactivity disorder (ADHD), predominantly inattentive type (Primary Dx); Amenorrhea; Screening for thyroid disorder Social History Tobacco Use Types Packs/Day Years [...] Pressure - - Pulse - - Temperature 37 ??C (98.6 ??F) 02/01/2021 09 EST Respiratory Rate - - Oxygen Saturation - - Inhaled Oxygen Concentration - - Weight 71.7 kg (158 lb) 02/01/2021919 EST Height 157.5 cm (5' 2.01) 02/01/2021 09 EST Body Mass Index 28.89 02/01/2021 09 EST documented in this encounter Functional Status [...] Date End Date lisdexamfetamine (VYVANSE) 50 mg capsuleIndications: Attention deficit hyperactivity disorder (ADHD), predominantly inattentive type Take 1 Cap by mouth every morning. Daily Max: 50 mg 14 Cap 02/01/2021 02/15/2021 documented in this encounter Progress Notes * Kalyani Landeros, SCREW MACHINE HAND - 02/01/2021 1130 EST [facility] Video Visit Today's visit was [...] auxiliary staff: yes. Subjective: Chief Complaint(s): Follow-up (ADHD) HPI: Follow up ADHD and Vyvanse. Last appointent 01/11/2021 she was prescribed Vyvanse 30mg/day. She reports the 30mg dose has not been effective. No side effects reported. She continues to feel scattered. Behavioral Health Screen Summary Interpretation PHQ-2: 0 PHQ-9: 5 Mild Depression MELANIA-2: 1 MELANIA-7: 3 Minimal Anxiety SASQ: AUDIT-10: SSASQ: DAST-10: . Irregular menses since giving 1 year ago. Menses were regular prior to her . Her daughter is 12 months old. She is not . LMP 11/27/2020. control - vasectomy. Negative home tests. I have reviewed current problem list and current medications. Review of Systems Constitutional: Negative for activity change, appetite change, fatigue, fever and unexpected weightchange. Gastrointestinal: Negative for abdominal pain. Genitourinary: Positive for menstrual problem (irregular). Endo/Heme/Allergies: Negative for cold intolerance and heat intolerance. Psychiatric/Behavioral: Positive for dysphoric mood (mild). Negative for agitation. The patient is nervous/anxious (mild). Objective: Examination: Home Vitals: Temp 37 ??C (98.6 ??F) Ht 157.5 cm (62.01) Wt 71.7 kg [...] disorder (ADHD), predominantly inattentive type Will increase vyvanse from 30mg to 50mg. Therapeutic benefits and side effects discussed. Prescription for 2 weeks provided. Follow up in 2 weeks, sooner if side effect occur. - lisdexamfetamine (VYVANSE) 50 mg capsule; Take 1 Cap by mouth every morning. Daily Max: 50 mg Dispense: 14 Cap; Refill: 0 2. Amenorrhea Labs for further evaluation. - FSH; Future - PROLACTIN; Future - ESTRADIOL, ADULTS; Future - POCT TEST, CLINITEK ORDER; Future 3. Screening for thyroid disorder - TSH; Future I spent a total of 32 minutes on the date of this encounter meeting with the patient and reviewing documentation/coordinating care as described in the above note. The following individuals and their role did participate in today's encounter visit: Provider: Kalyani Landeros APRN Patient documented in this encounter Plan of Treatment Upcoming Encounters Date Type Department Care Team (Late st Contact Info) Description 12/11/2024 9:[address] [facility] OR [address] [place] [address] [phone] Celeste Cooper MD [address] [place] [address] [phone] 12/11/2024 9:25 EST - 12/11/2024 11:[address] [facility] OR [address] [place] [address] [phone] Celeste Cooper MD [address] [place] [address] 4 [place] [phone] Laparoscopic left ovarian cystectomy [00044 (CPT??)] 12/31/2024 16:15 EST Post-op Visit [facility] [address] [phone] Jessika Upton MD [address] [place] [address] [phone] 02/06/2025 13:10 EDT Appointment [facility] [address] [phone] 03/05/2025 8:40 EDT Office Visit [facility] Rheumatology & Immunology [address] [phone] Nikolay Elizabeth MD MPH [address] [place] [address], [address] [place] [phone] Scheduled Procedures Name Priority Associated Diagnoses Date/Ti me LAPAROSCOPY, WITH EXCISION O R FULGURATION OF LESIONS OF OVARY, PELVIC VISCERA, OR PERITONEAL SURFACE Cyst of left ovary 12/11/2024 9:25 EST documented as of this encounter Visit Diagnoses Diagnosis Attention deficit hyperactivity disorder (ADHD), predominantly inattentive type- Primary Amenorrhea Absence of menstruation Screening for thyroid disorder Cyst of left ovary Other and unspecified ovarian cyst documented in this encounter Discontinued Medications Medication Sig Discontinue Reason Start Date End Da te lisdexamfetamine (VYVANSE) 30 mg capsuleIndications:Attenti on deficit hyperactivity disorder (ADHD), predominantly inattentive type Take 1 Cap by mouth every morning. Daily Max: 30 mg Dose adjustment 01/11/2021 02/01/2021 documented as of this encounter Care Teams Lithoplate Maker Relationship Specialty Start Date End Date Kalyani Landeros DNP [address] [place] [phone] PCP - General Family Medicine - Primary Care 11/05/20 11/26/22 documented as of this encounter
--- OUTSIDE RECORDS SUMMARY | 2024-12-08 15:30 | XMS_ITS | Encounter Summary ---
Author Organization [facility] Address [address] [place] [address] Care Team Providers Care Continuous Miner Operator Name Role Phone Kalyani Landeros DNP Primary Care Provider [phone] Reason for Visit * Reason Comments Other Encounter Details Date Type Department Care Team (Late st Contact Info) Description 05/28/[address] [facility] Integrative Family Medicine [address] [phone] Kalyani Landeros DNP [address] [place] [address] Other Social History Tobacco Use Types Packs/Day Years [...] Refills Last Filled Start Date End Date ondansetron (ZOFRAN-ODT) 4 mg disintegrating tabletIndications:Na usea TAKE 1 TABLET BY MOUTH EVERY 8 HOURS NEEDED FOR NAUSEA 12 Tablet 3 05/31/2022 documented in this encounter Miscellaneous Notes * Telephone Encounter - Eloise Pineda RN - 05/31/2022 0649 EDT MUNIR - 10/11/21 NOV - none last refill - 10/11/21, #12 w/ 3 RF OK to refill? documented in this encounter Plan of Treatment Upcoming Encounters Date Type Department Care Team (Late st Contact Info) Description 12/11/2024 9:25 EST Hospital Encounter [facility] OR [address] [place] [address] [phone] Celeste Cooper MD [address] [place] [address] 4 [place] [phone] 12/11/2024 9:25 EST - 12/11/2024 11:40 EST Surgery [facility] OR [address] [place] [address] [phone] Celeste Cooper MD [address] [place] [address] 4 [place] [phone] Laparoscopic left ovarian cystectomy [12348 (CPT??)] 12/31/2024 16:15 EST Post-op Visit [facility] - [address] [phone] Jessika Upton MD [address] [place] [address] [phone] 02/06/2025 13:10 EDT Appointment [facility] [address] [phone] 03/05/2025 8:40 EDT Office Visit [facility] Rheumatology & Immunology - [address] [phone] Nikolay Elizabeth MD MPH [address] [place] [address], [facility] [address] [place] [phone] Scheduled Procedures Name Priority Associated Diagnoses Date/Ti me LAPAROSCOPY, WITH EXCISION O R FULGURATION OF LESIONS OF OVARY, PELVIC VISCERA, OR PERITONEAL SURFACE Cyst of left ovary 12/11/2024 9:25 EST documented as of this encounter Visit Diagnoses Diagnosis Nausea- Primary Nausea alone Cyst of left ovary Other and unspecified ovarian cyst documented in this encounter Discontinued Medications Medication Sig Discontinue Reason Start Date End Da te ondansetron (ZOFRAN-ODT) 4 mg disintegrating tabletIndications:Nausea Take 1 Tablet by mouth every 8 hours as needed for Nausea. 10/11/2021 05/31/2022 documented as of this encounter Care Teams Continuous Miner Operator Relationship Specialty Start Date End Date Kalyani Landeros DNP [address] [place] [address] PCP - General Family Medicine - Primary Care 11/05/20 11/26/22 documented as of this encounter
--- OUTSIDE RECORDS SUMMARY | 2024-12-08 15:30 | XMS_ITS | Encounter Summary ---
Author Organization [facility] Address [address] [place] [address] Care Team Providers Care Drama Director Name Role Phone IleanaZina mora Ashli PERKINS Primary Care Provider [phone] Joseph Eduardo PA-C Primary Care Provider [phone] Reason for Visit * Reason Onset Date Comments COVID-19 07/28/2020 Encounter Details Date Type Department Care Team (Late st Contact Info) Description 07/28/2020 Telephone [facility] [place] [address] [place] [address] Demetrius, Ziggy Bañuelos MD [address] [facility] [address] [place] [phone] COVID-19 Social History Tobacco Use Types Packs/Day Years [...] have Coronavirus / COVID-19? No / Unsure 08/06/2020 18:22 EDT documented as of this encounter Functional Status [...] encounter Miscellaneous Notes * Telephone Encounter - Albin Marroquin - 08/06/2020 1441 EDT PRE-OP SCREENING ..C-19 screening recommended by provider. Routed for testing ordering. 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 Spoke to patient and verbally gave instructions for Testing Facility. Patient is instructed to be there at 9:30am [place], 08/08/20 * Telephone Encounter - Lopez Albin - 08/06/2020 0846 [facility]T [facility] for the scheduling team. * Telephone Encounter - Catherine Martinez - 07/28/2020 1735 EDT Reason for Call: COVID-19 Summary/Symptoms: Spoke with pt states that she would like to get her covid test at [facility]. Proceduredate is 08/12/20 Catherine Martinez 07/28/2020 17:35 documented in this encounter Plan of Treatment Upcoming Encounters Date Type Department Care Team (Late st Contact Info) Description 12/11/2024 9:25 EST Hospital Encounter [facility] OR [address] [place] [address] [phone] Celeste Cooper MD [address] [place] [address] 4 [place] [phone] 12/11/2024 9:25 EST - 12/11/2024 11:40 EST Surgery [facility] OR [address] [place] [address] [phone] Celeste Cooper MD [address] [place] [address] 4 [place] [phone] Laparoscopic left ovarian cystectomy [31136 (CPT??)] 12/31/2024 16:15 EST Post-op Visit [facility] OBGYN Services - [address] [phone] Jessika Upton MD [address] [place] [address] [phone] 02/06/2025 13:10 EDT Appointment [facility] OBGYN Services - [address] [address] 03/05/2025 8:40 EDT Office Visit [facility] Rheumatology & Immunology - [address] [address] Nikolay Elizabeth MD [facility] [address] [facility], Level [address] [place] [phone] Scheduled Procedures Name Priority Associated Diagnoses Date/Ti me LAPAROSCOPY, WITH EXCISION O R FULGURATION OF LESIONS OF OVARY, PELVIC VISCERA, OR PERITONEAL SURFACE Cyst of left ovary 12/11/2024 9:25 EST documented as of this encounter Visit Diagnoses Not on filedocumented in this encounter Care Teams Drama Director Relationship Specialty Start Date End Date Zina Monroy DO PCP - General 05/27/19 08/05/20 Joseph Eduardo, PADeyaniraC [address] [place] [address] [phone] PCP - General Family Medicine - Primary Care 08/06/20 11/04/20 documented as of this encounter
--- OUTSIDE RECORDS SUMMARY | 2024-12-08 15:30 | XMS_ITS | Encounter Summary ---
Author Organization [facility] Address [address] [place] [address] Care Team Providers Care Salesperson Hearing Aids Name Role Phone Kalyani Landeros KATHY Primary Care Provider [phone] Reason for Visit * Reason Onset Date Comments Ultrasound 08/26/2021 Encounter Details Date Type Department Care Team (Late st Contact Info) Description 08/26/2021 Orders Only [facility] OBGYN Services - [address] [address] Lizy Alicea, MYA Social History Tobacco Use Types Packs/Day Years [...] documented in this encounter Progress Notes * Lizy Alicea RN - 08/26/2021 1018 EDT error documented in this encounter Plan of Treatment Upcoming Encounters Date Type Department Care Team (Late st Contact Info) Description 12/11/2024 9:25 [facility] Hospital Encounter [facility] OR [address] [place] [address] [phone] Celeste Cooper MD [address] [place] [address] [phone] 12/11/2024 9:25 EST - 12/11/2024 11:40 EST Surgery [facility] OR [address] [place] [address] [phone] Celeste Cooper MD [address] [place] [address] [phone] Laparoscopic left ovarian cystectomy [51481 (CPT??)] 12/31/2024 16:15 EST Post-op Visit [facility] OBGYN Services [address] [phone] Jessika Upton MD [address] [place] [address] [phone] 02/06/2025 13:10 EDT Appointment [facility] O[facility] Services [address] [phone] 03/05/2025 8:40 EDT Office Visit [facility] Rheumatology & Immunology - [address] [address] Nikolay Elizabeth MD [address] [place] [phone] Scheduled Procedures Name Priority Associated Diagnoses Date/Ti me LAPAROSCOPY, WITH EXCISION O R FULGURATION OF LESIONS OF OVARY, PELVIC VISCERA, OR PERITONEAL SURFACE Cyst of left ovary 12/11/2024 9:25 EST documented as of this encounter Visit Diagnoses Not on filedocumented in this encounter Care Teams Salesperson Hearing Aids Relationship Specialty Start Date End Date Kalyani Landeros DNP [address] [place] [address] PCP - General Family Medicine - Primary Care 11/05/20 11/26/22 documented as of this encounter
--- OUTSIDE RECORDS SUMMARY | 2024-12-08 15:30 | XMS_ITS | Encounter Summary ---
Author Organization [facility] Address [address] [place] [address] Care Team Providers Care Auto Electrical Technician Name Role Phone Kalyani Landeros DNP Primary Care Provider [phone] Reason for Visit * Reason Comments Other Flu like symptoms Encounter Details Date Type Department Care Team (Late st Contact Info) Description 04/01/2021 13:30 EDT Telemedicine [facility] [address] [phone] Kalyani Landeros DNP [address] [place] [address] Fever of unknown origin (Primary Dx); Nausea Social History Tobacco Use Types Packs/Day Years [...] Pressure - - Pulse - - Temperature 38.3 ??C (101 ??F) 04/01/2021 1125 EDT Respiratory Rate - - Oxygen Saturation - - Inhaled Oxygen Concentration - - Weight 68.5 kg (151 lb) 04/01/2021 1125 EDT Height 157.5 cm (5' 2.01) 04/01/2021 1125 EDT Body Mass Index 27.61 04/01/2021 1125 EDT documented in this encounter Functional Status [...] Refills Last Filled Start Date End Date doxycycline (VIBRA-TABS) 100 mg tabletIndications:Fe mariella of unknown origin Take 1 Tab by mouth 2 times daily for 21 days. 42 Tab 04/01/2021 ondansetron (ZOFRAN-ODT) 4 mg disintegrating tabletIndications:Na usea Take 1 Tab by mouth every 8 hours as needed for Nausea. 12 Tab 3 04/01/2021 1 documented in this encounter Progress Notes * Kalyani Landeros, MORENA - 04/01/[address] [facility] Video Visit Today's [...] auxiliary staff: yes. Subjective: Chief Complaint(s): Other (Flu like symptoms) HPI: [place] reports having abrupt onset of flu-like symptoms since 03/30/2021. Her rapid Covid-19 test wasnegative 03/31/2021 (vega mata MD). PCR test is negative. Symptoms include: fever (Tmax 101), intense body aches, chills, headache. No sore throat. No cough. No rash. Self treatment: tylenol and advil and edmond seltzer cold and flu. No sick contacts. No known tick bites, but has been outside a lot and her has seen a lot of ticks. She is hydrating. Decreased appetite, but is eating. Mild nausea, no vomiting. I have reviewed current problem list and current medications. Review of Systems Constitutional: Positive for chills, diaphoresis, fatigue and fever. HENT: Negative for congestion, ear pain, sinus pressure and sore throat. Respiratory: Negative for cough and shortness of breath. Gastrointestinal: Positive for nausea (mild). Negative for abdominal pain and vomiting. Genitourinary: Negative for dysuria. Musculoskeletal: Positive for myalgias. Neurological: Positive for headaches. Negative for dizziness. Endo/Heme/Allergies: Negative for adenopathy. Objective: Examination: Home Vitals: Temp 38.3 ??C (101 ??F) Ht 157.5 cm (62.01) Wt 68.5 kg (151 lb) BMI 27.61 kg/m?? Pertinent exam findings: GENERAL APPEARANCE: no acute distress, tired. HEENT EYES:, conjunctiva clear. NECK: supple LUNGS: unlabored SKIN: warm & dry. NEUROLOGIC EXAM: alert & oriented x3 PSYCH: mood appropriate, affect full range Data reviewed with patient: Nicho message from 03/31/2021 Assessment & Plan: 1. Fever of unknown origin No localized symptoms such as sore throat, ear pain, dysuria, cough. Rapid test for COVID-19 was negative, PCR test is negative. Likelihood of influenza is low due to low level of flu activity this year and no sick contacts. Also, her daughter and her do not have any flulike symptoms. I would like her to have blood work (CBC, CRP, CMP, lyme antibody and urinalysis) but she is unableto do this at the hospital due to having a persistent fever. Will hold off on these labs until she is afebrile x 24 hours and not taking antipyretics. She has been exposed to ticks and this may represent Lyme disease. I discussed treating for presumptive Lyme with doxycycline 100 mg twice per day. Therapeutic benefits and side effects reviewed. Close monitoring of symptoms. Go to the emergency department if you have a fever greater than 101 that would not respond to Tylenol or ibuprofen, you develop the worst headache of your life, symptomsof dehydration, rigors. - doxycycline (VIBRA-TABS) 100 mg tablet; Take 1 Tab by mouth 2 times daily for 21 days. Dispense: 42 Tab; Refill: 0 2. Nausea - ondansetron (ZOFRAN-ODT) 4 mg disintegrating tablet; Take 1 Tab by mouth every 8 hours as needed for Nausea. Dispense: 12 Tab; Refill: 3 I spent a total of 34 minutes on the date of this encounter meeting with the patient and reviewing documentation/coordinating care as described in the above note. The following individuals and their role did participate in today's encounter visit: Provider: Kalyani Landeros APRN Patient documented in this encounter Plan of Treatment Upcoming Encounters Date Type Department Care Team (Late st Contact Info) Description 12/11/2024 9:25 EST Hospital Encounter [facility] OR [address] [place] [address] [phone] Celeste Cooper MD [address] [place] [address] 4 [place] [phone] 12/11/2024 9:25 EST - 12/11/2024 11:40 EST Surgery [facility] OR [address] [place] [address] [phone] Celeste Cooper MD [address] [place] [address] [phone] Laparoscopic left ovarian cystectomy [50267 (CPT??)] 12/31/2024 16:15 EST Post-op Visit [facility] OBGYN Services - [address] [phone] Jessika Upton MD [address] [place] [phone] 02/06/2025 13:[address] [facility] - [address] [phone] 03/05/2025 8:[address] [facility] Rheumatology & Immunology - [address] [phone] Nikolay Elizabeth MD MPH [address] [place] [address] 5 [place] [phone] Scheduled Procedures Name Priority Associated Diagnoses Date/Ti me LAPAROSCOPY, WITH EXCISION O R FULGURATION OF LESIONS OF OVARY, PELVIC VISCERA, OR PERITONEAL SURFACE Cyst of left ovary 12/11/2024 9:25 EST documented as of this encounter Visit Diagnoses Diagnosis Fever of unknown origin- Primary Fever, unspecified Nausea Nausea alone Cyst of left ovary Other and unspecified ovarian cyst documented in this encounter Discontinued Medications Medication Sig Discontinue Reason Start Date End Da te ondansetron (ZOFRAN-ODT) 4 mg disintegrating tablet Take 1 Tab by mouth every 8 hours as needed for Nausea. Reorder 12/03/2020 04/01/2021 documented as of this encounter Care Teams Auto Electrical Technician Relationship Specialty Start Date End Date Kalyani Landeros DNP [address] [place] [id number] PCP - General Family Medicine - Primary Care 11/05/20 11/26/22 documented as of this encounter
--- OUTSIDE RECORDS SUMMARY | 2024-12-08 15:30 | XMS_ITS | Encounter Summary ---
Author Organization [facility] Address [address] [place] [address] Care Team Providers Care Installation Superintendent Name Role Phone Kalyani Landeros DNP Primary Care Provider [phone] Reason for Referral * CRITICAL CARE CLINICAL NURSE SPECIALIST (Routine/Next Available) - Specialty Report Received Specialty Diagnoses / Procedures Referred By Seema kapoor Referred To Contact Diagnoses Abnormal uterine bleeding Procedures US PELVIS TRANSVAGINAL Celeste Cooper MD Phone: tel: fax: Referral ID Status Reason Start Date Expiration Date V isits Requested Visits Authorized [id number] Specialty Report Received 08/27/2021 1 1 Reason for Visit * CRITICAL CARE CLINICAL NURSE SPECIALIST (Routine/Next Available) - Specialty Report Received Specialty Diagnoses / Procedures Referred By Seema kapoor Referred To Contact Diagnoses Abnormal uterine bleeding Procedures US PELVIS TRANSVAGINAL Celeste Cooper MD Phone: tel: fax: Referral ID Status Reason Start Date Expiration Date V isits Requested Visits Authorized [id number] Specialty Report Received 08/27/2021 1 1 Encounter Details Date Type Department Care Team (Latest Contact Info) Description 10/05/2021 15:40 EST - 10/05/2021 23:59 EST Hospital Encounter [facility] OBGYN Services - Main [place] [address] [place] [address] Abnormal uterine bleeding Discharge Disposition: Home or Self Care Social [...] 4 hours as needed for Pain. 02/02/2020 LORazepam (ATIVAN) 0.5 mg tablet Take 1 Tab by mouth at bedtime as needed for Anxiety. Daily Max: 0.5 mg 15 Tab 1 11/18/2020 atomoxetine (STRATTERA) 100 mg capsuleIndications:A ttention deficit hyperactivity disorder (ADHD), unspecified ADHD type Take 1 Cap by mouth daily. 30 Cap 3 04/09/2021 1 lisdexamfetamine (VYVANSE) 50 mg capsuleIndications:A ttention deficit hyperactivity disorder (ADHD), unspecified ADHD type Take 1 Cap by mouth every morning. Daily Max: 50 mg 28 Cap 03/03/2021 1 ondansetron (ZOFRAN-ODT) 4 mg disintegrating tabletIndications:Na usea Take 1 Tab by mouth every 8 hours as needed for Nausea. 12 Tab 3 04/01/2021 1 documented as of this encounter Discharge Disposition Disposition Code Departure Means Destination Home or Self Care documented in this encounter Plan of Treatment Upcoming Encounters Date Type Department Care Team (Late st Contact Info) Description 12/11/2024 9:25 EST Hospital Encounter [facility] OR [address] [place] [address] [phone] Celeste Cooper MD [address] [place] [address] [phone] 12/11/2024 9:25 EST - 12/11/2024 11:40 EST Surgery [facility] OR [address] [place] [address] [phone] Celeste Cooper MD [address] [place] [address] [phone] Laparoscopic left ovarian cystectomy [93648 (CPT??)] 12/31/2024 16:15 EST Post-op Visit [facility] O[facility] Services [address] [address] Jessika Upton MD [address] [place] [address] [phone] 02/06/2025 13:10 EDT Appointment [facility] [address] [address] 03/05/2025 8:40 EDT Office Visit [facility] Rheumatology & Immunology [address] [address] Nikolay Elizabeth MD [address], [address] [place] [phone] Scheduled Procedures Name Priority Associated Diagnoses Date/Ti me LAPAROSCOPY, WITH EXCISION O R FULGURATION OF LESIONS OF OVARY, PELVIC VISCERA, OR PERITONEAL SURFACE Cyst of left ovary 12/11/2024 9:25 EST documented as of this encounter Procedures Procedure Name Priority Date/Time Associated Diagnosis Comments US PELVIS TRANSVAGINAL COMPLETE Routine 10/05/2021 15:47 EST Abnormal uterine bleeding documented in this encounter Results * US [...] probe #4. View: Sufficient. Impression Transvaginal Pelvic -88030 1. Uterus is unremarkable in size, contour and echogenicity. 2. Endometrium is unremarkable. 3. Right ovary with dominant follicle, otherwise unremarkable. 4. Left ovary with 3 cm simple cyst; may be resolving follicle vs cystic structure. No pain with probe in this area. 5. No free fluid in the cul-de-sac. Follow-up Follow-up with AUTOMOBILE ACCESSORIES INSTALLER provider. Comment ========= Ultrasound findings discussed w/patient. R10.3 Abdominal pain, lower abdomen, N94.1 dyspareunia. N93.9 abnormal uterine bleeding, unspecified. DATE OF SERVICE: 10/05/2021 Procedure Note Enedina Harris MD - 11/09/2021 Indication Abnormal Uterine Bleeding; Dyspareunia; Pelvic Pain. [...] probe #4. View: Sufficient. Impression Transvaginal Pelvic -60006 1. Uterus is unremarkable in size, contour and echogenicity. 2. Endometrium is unremarkable. 3. Right ovary with dominant follicle, otherwise unremarkable. 4. Left ovary with 3 cm simple cyst; may be resolving follicle vs cysticstructure. No pain with probe in this area. 5. No free fluid in the cul-de-sac. Follow-up Follow-up with AUTOMOBILE ACCESSORIES INSTALLER provider. Comment ========= Ultrasound findings discussed w/patient. R10.3 Abdominal pain, lower abdomen, N94.1 dyspareunia. N93.9 abnormaluterine bleeding, unspecified. DATE OF SERVICE: 10/05/2021 us Celeste Cooper MD IMG OB ORDERABLES Final Re sult documented in this encounter Visit Diagnoses Diagnosis Abnormal uterine bleeding Unspecified disorder of menstruation and other abnormal bleeding from female genital tract Cyst of left ovary Other and unspecified ovarian cyst documented in this encounter Care Teams Installation Superintendent Relationship Specialty Start Date End Date Kalyani Landeros DNP [address] [place] [phone] PCP - General Family Medicine - Primary Care 11/05/20 11/26/22 documented as of this encounter
--- OUTSIDE RECORDS SUMMARY | 2024-12-08 15:30 | XMS_ITS | Encounter Summary ---
Author Organization [facility] Address [address] [place] [address] Care Team Providers Care Children'S Author Name Role Phone Kalyani Landeros KATHY Primary Care Provider [phone] Encounter Details Date Type Department Care Team (Latest Contact Info) Description 02/23/2021 Travel Social History Tobacco Use Types Packs/Day [...] 13:00 EDT documented as of this encounter Functional [...] Info) Description 12/11/2024 9:25 EST Hospital Encounter [facility] OR [address] [place] [phone] Celeste Cooper MD [address] [place] [phone] 12/11/2024 9:25 EST - 12/11/2024 11:40 EST Surgery [facility] OR [address] [place] [address] [phone] Celeste Cooper MD [address] [place] [phone] Laparoscopic left ovarian cystectomy [[id number] (CPT??)] 12/31/2024 16:15 EST Post-op Visit [facility] OBG[facility] Services [address] [address] Jessika Upton MD [address] [place] [address] [phone] 02/06/2025 13:10 EDT Appointment [facility] [address] [phone] 03/05/2025 8:40 EDT Office Visit [facility] Rheumatology & Immunology - [address] [address] Nikolay Elizabeth MD [address], [facility] [address] [place] [phone] Scheduled Procedures Name Priority Associated Diagnoses Date/Ti me LAPAROSCOPY, WITH EXCISION O R FULGURATION OF LESIONS OF OVARY, PELVIC VISCERA, OR PERITONEAL SURFACE Cyst of left ovary 12/11/2024 9:25 EST documented as of this encounter Visit Diagnoses Not on filedocumented in this encounter Care Teams Children'S Author Relationship Specialty Start Date End Date Kalyani Landeros DNP [address] [place] [phone] PCP - General Family Medicine - Primary Care 11/05/20 11/26/22 documented as of this encounter
--- OUTSIDE RECORDS SUMMARY | 2024-12-08 15:30 | XMS_ITS | Encounter Summary ---
Author Organization [facility] Address [address] [place] [address] Care Team Providers Care Corporate Licensed Broker Name Role Phone Joseph Eduardo PA-C Primary Care Provider [phone] Reason for Visit * Reason Onset Date Comments Surgery Scheduling 08/07/2020 Encounter Details Date Type Department Care Team (Late st Contact Info) Description 08/07/2020 Telephone [facility] OBGYN Services - [address] [address] Ziggy Romo MD [address] [place] [address], [address] [place] [phone] Surgery Scheduling Social History Tobacco Use Types Packs/Day Years [...] encounter Miscellaneous Notes * Telephone Encounter - Alicia Victoria - 08/07/2020 1605 EDT Pt LM stating they want to cancel surgery for next week. Called pt back to confirm. Pt says she's convinced her to get a vasectomy so she will not be needing to postpone. Will cancel appts and let Dr know. Pt in agreement! documented in this encounter Plan of Treatment Upcoming Encounters Date Type Department Care Team (Late st Contact Info) Description 12/11/2024 9:25 EST Hospital Encounter [facility] [place] [address] [place] [address] [phone] Celeste Cooper MD [address] [place] [address] 4 [place] [phone] 12/11/2024 9:25 EST - 12/11/2024 11:40 EST Surgery [facility] OR [address] [place] [phone] Celeste Cooper MD [address] [place] [address] 4 [place] [phone] Laparoscopic left ovarian cystectomy [00649 (CPT??)] 12/31/2024 16:15 EST Post-op Visit [facility] OBGYN Services - [address] 557231 Jessika Upton MD [address] [place] [phone] 02/06/2025 13:10 EDT Appointment [facility] [address] [phone] 03/05/2025 8:40 EDT Office Visit [facility] Rheumatology & Immunology - [address] [phone] Nikolay Elizabeth MD MPH [address] [place] [address] 5 [place] [phone] Scheduled Procedures Name Priority Associated Diagnoses Date/Ti me LAPAROSCOPY, WITH EXCISION O R FULGURATION OF LESIONS OF OVARY, PELVIC VISCERA, OR PERITONEAL SURFACE Cyst of left ovary 12/11/2024 9:25 EST documented as of this encounter Visit Diagnoses Not on filedocumented in this encounter Care Teams Corporate Licensed Broker Relationship Specialty Start Date End Date Joseph Eduardo PA-C [address] [place] [phone] PCP - General Family Medicine - Primary Care 08/06/20 11/04/20 documented as of this encounter
--- OUTSIDE RECORDS SUMMARY | 2024-12-08 15:30 | XMS_ITS | Encounter Summary ---
Author Organization [facility] Address [address] [place] [address] Care Team Providers Care Road Boss Name Role Phone Kalyani Landeros DNP Primary Care Provider [phone] Reason for Visit * Reason Comments Medication Management Encounter Details Date Type Department Care Team (Latest Contact Info) Description 02/15/2021 11:30 EDT Telemedicine [facility] Integrative Family Medicine [facility] [address] [place], [place] [phone] Kalyani Landeros DNP [address] [place] [address] Attention deficit hyperactivity disorder (ADHD), [...] - Inhaled Oxygen Concentration - - Weight 72.6 kg (160 lb) 02/15/2021 1032 EDT Height 157.5 cm (5' 2.01) 02/15/2021 1032 EDT Body Mass Index 29.26 02/15/2021 1032 EDT documented in this encounter Functional Status [...] Last Filled Start Date End Date methylphenidate HCl (RITALIN LA) 30 mg LA capsuleIndications: Attention deficit hyperactivity disorder (ADHD), predominantly inattentive type Take 1 Cap by mouth daily. Daily Max: 30 mg 14 Cap 02/15/2021 02/18/2021 documented in this encounter Progress Notes * Kalyani Landeros APRN - 02/15/2021 1130 EDT [facility] Video Visit Today's visit was provided through [...] Chief Complaint(s): Medication Management HPI: Last appointment 02/01/2021 vyvanse was increased to 50mg. No improvement w/ current medication. Previous treatment adderall XR 40mg which caused moodiness. I have reviewed current problem list and current medications. Review of Systems Constitutional: Negative for unexpected weight change. Cardiovascular: Negative for chest pain. Gastrointestinal: Negative for abdominal pain. Psychiatric/Behavioral: Positive for decreased concentration. Negative for agitation and behavioralproblems. Objective: Examination: Home Vitals: Ht 157.5 cm (62.01) Wt 72.6 kg (160 lb) BMI 29.26 kg/m?? Pertinent exam findings: GENERAL APPEARANCE: no acute distress, pleasant, cooperative. HEENT EYES:, conjunctiva clear. NECK: supple LUNGS: unlabored SKIN: warm & dry. NEUROLOGIC EXAM: alert & oriented x3 PSYCH: mood appropriate, affect full range Data reviewed with patient: most recent specialist in gynecology documentation reviewed: 02/15/2021 Assessment & Plan: 1. Attention deficit hyperactivity disorder (ADHD), predominantly inattentive type Therapeutic benefits and side effects of methylphenidate LA discussed. Will send in a 2-week supplyto her pharmacy. Follow-up in 2 weeks as scheduled, sooner if side effects occur. - methylphenidate HCl (RITALIN LA) 30 mg LA capsule; Take 1 Cap by mouth daily. Daily Max: 30 mg Dispense: 14 Cap; Refill: 0 I spent a total of 20 minutes [...] Info) Description 12/11/2024 9:25 EST Hospital Encounter [facility] OR [address] [place] [address] [phone] Celeste Cooper MD [address] [place] [address] 4 [place] [phone] 12/11/2024 9:25 EST - 12/11/2024 11:40 EST Surgery [facility] OR [address] [place] [address] [phone] Celeste Cooper MD [address] [place] [address] 4 [place] [phone] Laparoscopic left ovarian cystectomy [[id number] (CPT??)] 12/31/2024 16:15 EST Post-op Visit [facility]BG[facility] Services [address] [phone] Jessika Upton MD [address] [place] [address] [phone] 02/06/2025 13:10 EDT Appointment [facility] [address] [phone] 03/05/2025 8:40 EDT Office Visit [facility] Rheumatology & Immunology [address] [phone] Nikolay Elizabeth MD [address] [place] [phone] Scheduled Procedures Name Priority Associated Diagnoses Date/Ti [...] morning. Daily Max: 50 mg Therapy completed 02/01/2021 02/15/2021 documented as of this encounter Care Teams Road Boss Relationship Specialty Start Date End Date Kalyani Landeros DNP [address] [place] [phone] PCP - General Family Medicine - Primary Care 11/05/20 11/26/22 documented as of this encounter
--- OUTSIDE RECORDS SUMMARY | 2024-12-08 15:30 | XMS_ITS | Encounter Summary ---
Author Organization [facility] Address [address] [place] [address] Care Team Providers Care Technology Engineer Name Role Phone LanderosKalyani KATHY Primary Care Provider [phone] Reason for Visit * Reason Onset Date Comments Prior Auth, Medication 11/18/2020 Encounter Details Date Type Department Care Team (Late st Contact Info) Description 11/18/2020 Telephone [facility] Integrative Family Medicine [address] [address] Cely Ty RN Prior Auth, Medication Social History Tobacco [...] Refills Last Filled Start Date End Date LORazepam (ATIVAN) 0.5 mg tablet Take 1 Tab by mouth at bedtime as needed for Anxiety. Daily Max: 0.5 mg 15 Tab 1 11/18/2020 documented in this encounter Miscellaneous Notes * Telephone Encounter - Cely Ty RN - 11/18/2020 1508 EST Detailed message left for pt. * Telephone Encounter - Kalyani Landeros APRN - 11/18/2020 0848 EST OK to change to lorazepam 0.5mg at bedtime as needed. Rx. Sent. Please let patient know. Kalyani Landeros APRN * Telephone Encounter - Cely Ty RN - 11/18/2020 0839 EST Alprazolam PA was submitted and denied. Pt needs to have tried and failed at least 2 preferred medications. I see he has tried lorazepam. Other preferred medications are chlordiazepoxide, clonazepam,diazepam, lorazepam and oxazepam. documented in this encounter Plan of Treatment Upcoming Encounters Date Type Department Care Team (Late st Contact Info) Description 12/11/2024 9:25 EST Hospital Encounter [facility] OR [address] [place] [address] [phone] Celeste Cooper MD [address] [place] [address] [phone] 12/11/2024 9:25 EST - 12/11/2024 11:40 EST Surgery [facility] OR [address] [place] [address] [phone] Celeste Cooper MD [address] [place] [address] [phone] Laparoscopic left ovarian cystectomy [72950 (CPT??)] 12/31/2024 16:15 EST Post-op Visit [facility] - [address] [phone] Jessika Upton MD [address] [place] [address] [phone] 02/06/2025 13:10 EDT Appointment [facility] [address] [phone] 03/05/2025 8:40 EDT Office Visit [facility] - [address] [phone] Nikolay Elizabeth MD MPH [address] [facility], Level [address] [place] [phone] Scheduled Procedures Name Priority Associated Diagnoses Date/Ti me LAPAROSCOPY, WITH EXCISION O R FULGURATION OF LESIONS OF OVARY, PELVIC VISCERA, OR PERITONEAL SURFACE Cyst of left ovary 12/11/2024 9:25 EST documented as of this encounter Visit Diagnoses Not on filedocumented in this encounter Discontinued Medications Medication Sig Discontinue Reason Start Date End Da te ALPRAZolam (XANAX) 0.5 mg tabletIndications:Anxi ety Take 1 Tab by mouth at bedtime as needed for Sleep. Daily Max: 0.5 mg Insurance does not cover 11/05/2020 11/18/2020 documented as of this encounter Care Teams Technology Engineer Relationship Specialty Start Date End Date Kalyani Landeros DNP [address] [place] [id number] PCP - General Family Medicine - Primary Care 11/05/20 11/26/22 documented as of this encounter
--- OUTSIDE RECORDS SUMMARY | 2024-12-08 15:30 | XMS_ITS | Encounter Summary ---
Author Organization [facility] Address [address] [place] [address] Care Team Providers Care Range Mechanic Name Role Phone Joseph Eduardo PA-C Primary Care Provider [phone] Encounter Details Date Type Department Care Team (Latest Contact Info) Description 08/06/2020 Travel Social History Tobacco Use Types Packs/Day [...] Info) Description 12/11/2024 9:25 EST Hospital Encounter [facility] OR [address] [place] [address] [phone] Celeste Cooper MD [address] [place] [phone] 12/11/2024 9:25 EST - 12/11/2024 11:40 EST Surgery [facility] OR [address] [place] [address] [phone] Celeste Cooper MD [address] [place] [phone] Laparoscopic left ovarian cystectomy [65582 (CPT??)] 12/31/2024 16:15 EST Post-op Visit [facility] [address] [address] Jessika Upton MD [address] [place] [address] [phone] 02/06/2025 13:10 EDT Appointment [facility] - [address] [address] 03/05/2025 8:40 EDT Office Visit [facility] Rheumatology & Immunology - [address] [phone] Nikolay Elizabeth MD [address], [facility] [address] [place] [phone] Scheduled Procedures Name Priority Associated Diagnoses Date/Ti me LAPAROSCOPY, WITH EXCISION O R FULGURATION OF LESIONS OF OVARY, PELVIC VISCERA, OR PERITONEAL SURFACE Cyst of left ovary 12/11/2024 9:25 EST documented as of this encounter Visit Diagnoses Not on filedocumented in this encounter Care Teams Range Mechanic Relationship Specialty Start Date End Date Joseph Eduardo PA-C [address] [place] [phone] PCP - General Family Medicine - Primary Care 08/06/20 11/04/20 documented as of this encounter
--- OUTSIDE RECORDS SUMMARY | 2024-12-08 15:30 | XMS_ITS | Encounter Summary ---
Author Organization [facility] Address [address] [place] [address] Care Team Providers Care Accounting Consultant Name Role Phone Joseph Eduardo PA-C Primary Care Provider Reason for Visit * Reason Comments Follow-up Medication Management Encounter Details Date Type Department Care Team (Late st Contact Info) Description 10/21/2020 13:00 EST Telemedicine [facility] - [place] [address] [place] [address] Joseph Eduardo PA-C [address] [place] [address] [phone] Anxiety (Primary Dx); Episode of recurrent major depressive disorder, unspecified depression episode severity ([facility]); Encounter for medication counseling Social History Tobacco Use Types Packs/Day Years [...] Taken Comments Blood Pressure - - Pulse 80 10/21/2020 1129 EST Temperature - - Respiratory Rate - [...] Refills Last Filled Start Date End Date buPROPion (WELLBUTRIN XL) 300 mg XL tablet Take 1 Tab by mouth daily for 360 days. 90 Tab 3 10/21/2020 1 buPROPion (WELLBUTRIN XL) 150 mg XL tablet Take 1 Tab by mouth daily for 360 days. 90 Tab 3 10/21/2020 1 ondansetron (ZOFRAN-ODT) 4 mg disintegrating tablet Take 1 Tab by mouth every 8 hours as needed for up to 30 days for Nausea. 30 Tab 2 10/21/2020 0 documented in this encounter Progress Notes * Lisa Mcgraw RN - 10/21/2020 1300 EST No concerns today. * Joseph Eduardo PA-C - 10/21/2020 1300 EST [facility] Telephone Visit Verbal consent: The concept of ???Telemedicine?? has been described to the patient. Patient has been informed of the anticipated benefits and possible risks. Patient understands the information provided regarding telemedicine, has had the opportunity to ask questions about this information, and all questions havebeen answered to patient???s satisfaction. Patient consents for the use of telemedicine in his/her medical care and authorizes the transmission of any relevant medical information to providers and their staff involved in patient???s medical or mental health care. Verbal consent obtained by myself or auxiliary staff: yes. Subjective: Chief Complaint(s): Follow-up and Medication Management HPI: This patient is a 25-year-old female with history of depression and anxiety who presents today to discuss getting refills on bupropion, Zofran. States that she previously was on Wellbutrin, and then got and subsequently had a miscarriage. She stayed off the Wellbutrin and then got again and now has a 9-month-old child, and recently she restarted the bupropion at 450 mg. No adverse effects appreciated at this time, feels like it has been helpful with depression. Rarely uses Xanax, still has prescription from 1 to 2 years ago. Requesting refill for Zofran which he uses for intermittent nausea. No other concerns or questions today. I have reviewed patient's tobacco history: reports that she has never smoked. She has never used smokeless tobacco. I have reviewed current problem list and current medications. ROS: See HPI Objective: Examination: Home Vitals: Pulse 80 Pertinent exam findings: speaking in full sentences, no audible wheeze, and mood and affect appropriate Data reviewed with patient: Reviewed and/or ordered active problem list, medication list, allergies, family history, social history, health maintenance, notes from last encounter, lab results, imaging tests Assessment & Plan: 1. Anxiety Continue to use Xanax as needed. Will call for refill when she finishes what she has. 2. Episode of recurrent major depressive disorder, unspecified depression episode severity (HCC-CMS) Doing well and is stable on current dose of Wellbutrin (450 mg). Will stay on this dose, refill sent for 1 year. We will follow-up in 1 year or earlier if necessary. 3. Encounter for medication counseling See above. Patient initiated phone contact with the office: yes. Patient is an established patient (parent, guardian) yes. E/M provided within previous 7 days for same medical assessment: no Anticipate E/M service within 24hrs or next available urgent appointment no. This visit was conducted by telephone. A total of 7 minutes was spent on this encounter on the day of this encounter. documented in this encounter Plan of Treatment Upcoming Encounters Date Type Department Care Team (Late st Contact Info) Description 12/11/2024 9:25 EST Hospital Encounter [facility] OR [address] [place] [address] [phone] Celeste Cooper MD [address] [place] [address] [phone] 12/11/2024 9:25 EST - 12/11/2024 11:40 EST Surgery [facility] OR [address] [place] [address] [phone] Celeste Cooper MD [address] [place] [address] [address] [place] [phone] Laparoscopic left ovarian cystectomy [49480 (CPT??)] 12/31/2024 16:15 EST Post-op Visit [facility] - [address] [phone] Jessika Upton MD [address] [place] [phone] 02/06/2025 13:10 EDT Appointment [facility] [address] [address] 03/05/2025 8:40 EDT Office Visit [facility] Rheumatology & Immunology [address] [phone] Nikolay Elizabeth MD MPH [address] [facility], Level [address] [place] [phone] Scheduled Procedures Name Priority Associated Diagnoses Date/Ti me LAPAROSCOPY, WITH EXCISION O R FULGURATION OF LESIONS OF OVARY, PELVIC VISCERA, OR PERITONEAL SURFACE Cyst of left ovary 12/11/2024 9:25 EST documented as of this encounter Visit Diagnoses Diagnosis Anxiety- Primary Anxiety state, unspecified Episode of recurrent major depressive disorder, unspecified depression episode severity ([facility]) Encounter for medication counseling Other specified counseling Cyst of left ovary Other and unspecified ovarian cyst documented in this encounter Discontinued Medications Medication Sig Discontinue Reason Start Date End Da te acetaminophen (TYLENOL) 325 mg tablet Take 2 Tabs by mouth every 4 hours as needed for Pain. 02/02/2020 10/21/2020 cephALEXin (KEFLEX) 500 mg capsule TAKE 1 CAPSULE BY MOUTH 4 TIMES A DAY FOR 10 DAYS 09/04/2020 10/21/2020 drospirenone-ethinyl estradioL (JACQUIE) 3-0.02 mg per tablet 1 tab(s) orally once a day 12/14/2018 10/21/2020 buPROPion (WELLBUTRIN XL) 300 mg XL tablet Take 300 mg by mouth daily. Reorder 10/21/2020 buPROPion (WELLBUTRIN XL) 150 mg XL tablet TAKE 1 TABLET BY MOUTH EVERY DAY WITH 300MG Reorder 09/30/2020 10/21/2020 ondansetron (ZOFRAN-ODT) 4 mg disintegrating tablet Take 4 mg by mouth every 8 hours as needed for Nausea. Reorder 10/21/2020 documented as of this encounter Historical Medications * This list may reflect changes made after this encounter. fexofenadine (MARTHA) 60 mg tablet Take 1 Tablet by mouth as needed. ondansetron (ZOFRAN-ODT) 4 mg disintegrating tablet Take 4 mg by mouth every 8 hours as needed for Nausea. 0 cephALEXin (KEFLEX) 500 mg capsule TAKE 1 CAPSULE BY MOUTH 4 TIMES A DAY FOR 10 DAYS 09/04/2020 0 ALPRAZolam (XANAX) 0.5 mg tablet 1 tab(s) orally Daily PRN 04/16/2019 0 LORazepam (ATIVAN) 0.5 mg tablet 1 tab(s) orally 2 times a day PRN 04/19/2019 0 drospirenone-ethinyl estradioL (JACQUIE) 3-0.02 mg per tablet 1 tab(s) orally once a day 12/14/2018 0 buPROPion (WELLBUTRIN XL) 150 mg XL tablet TAKE 1 TABLET BY MOUTH EVERY DAY WITH 300MG 09/30/2020 0 added in this encounter Care Teams Accounting Consultant Relationship Specialty Start Date End Date Joseph Eduardo, PADeyaniraC [address] [place] [phone] PCP - General Family Medicine - Primary Care 08/06/20 11/04/20 documented as of this encounter
--- OUTSIDE RECORDS SUMMARY | 2024-12-08 15:31 | XMS_ITS | Encounter Summary ---
Author Organization [facility] Address [address] [place] [address] Care Team Providers Care Drive Man Name Role Phone Zina Monroy Primary Care Provider [phone] Reason for Visit * Reason Comments Routine Visit Encounter Details Date Type Department Care Team (Late st Contact Info) Description 01/22/2020 13:30 EST Routine [facility] Services - [address] [phone] Ester Kaur, PLANT PHYSIOLOGIST [address], [address] [place] [address] GA: 37w5d Social History Tobacco Use Types Packs/Day Years Used Date Smoking Tobacco: Never Smokeless Tobacco: Never Alcohol Use Standard Drinks/Week Comments No 0 (1 standard drink = 0.6 oz pur e alcohol) AUDIT-C Answer Date Recorded Frequency of Alcohol Consumption Never 07/03/2019 Average Number of Drinks Not on file 019 Frequency of Binge Drinking Not on file 05/2019 Comments Yes Sex and Gender Information Value Date Recorded Sex Assigned at Female 11/06/2024 15:56 EST Legal Sex Female 15:52 EDT Gender Identity Female 11/12/2019 14:09 EST Sexual Orientation Not on file documented as of this encounter Last Filed Vital Signs Vital Sign Reading Time Taken Comments Blood Pressure 122/60 01/22/2020 1323 EST Pulse - - Temperature - - Respiratory Rate - - Oxygen Saturation - - Inhaled Oxygen Concentration - - Weight 86.5 kg (190 lb 12.8 oz) 01/22/2020 1323 EST Height - - Body Mass Index 34.89 01/13/2020 1314 EST documented in this encounter Functional Status * Are you deaf or do you have serious difficulty hearing? Answer Date of Assessment Author No 12/22/2019 18:09 Kirill Dunn, RN * Are you blind or do you have serious difficulty seeing, even when wearing glasses? Answer Date of Assessment Author No 12/22/2019 18:09 Kirill Dunn, RN * Do you have serious difficulty walking or climbing stairs? (5 years old or older) Answer Date of Assessment Author No 12/22/2019 18:09 Kirill Dunn, RN * Do you have difficulty dressing or bathing? (5 years old or older) Answer Date of Assessment Author No 12/22/2019 18:09 Kirill Dunn, RN * Because of a physical, mental, or emotional condition, do you have difficulty doing errands alone such as visiting a doctor's office or shopping? (15 years old or older) Answer Date of Assessment Author No 12/22/2019 18:09 Kirill Dunn, RN documented as of this encounter Mental Status * Because of a physical, mental, or emotional condition, do you have serious difficulty concentrating, remembering, or making decisions? (5 years old or older) Answer Entry Date Author No 12/22/2019 18:09 Kirill Dunn, RN documented in this encounter Progress Notes * Ester Kaur, TANNER - 01/22/2020 1330 EST S: [place] Mikayla Duffy is here today for a visit at 37w5d. Denies bleeding, loss of fluid or painful contractions. + FM. Has decided her partner will get a vasectomy. Will use condoms until then. No questions or concerns today. Feeling ready for baby. O: Vitals: BP: 122/60 Weight : 86.5 kg (190 lb 12.8 oz) Fundal Height (cm): 37 cm Heart Rate: 140 Movement: Present Presentation: Vertex A: 24 y.o. at 37w5d IUP S=D Rh pos Rubella non-immune GBS negative Anemia- improved Hx depression/anxiety Chronic LBP P: Labor/warning signs reviewed and when to call Follow up in 1 wks documented in this encounter Plan of Treatment Upcoming Encounters Date Type Department Care Team (Late st Contact Info) Description 12/11/2024 9:25 EST Hospital Encounter [facility] OR [address] [place] [address] [phone] Celeste Cooper MD [address] [place] [address] 4 [place] [phone] 12/11/2024 9:25 EST - 12/11/2024 11:40 EST Surgery [facility] OR [address] [place] [address] [phone] Celeste Cooper MD [address] [place] [address] 4 [place] [phone] Laparoscopic left ovarian cystectomy [78693 (CPT??)] 12/31/2024 16:15 EST Post-op Visit [facility] [address] [phone] Jessika Upton MD [address] [place] [phone] 02/06/2025 13:10 EDT Appointment [facility] [address] [address] 03/05/2025 8:40 EDT Office Visit [facility] Rheumatology & Immunology - [address] [place] [address] [phone] Nikolay Elizabeth MD [address] [place] [phone] Scheduled Procedures Name Priority Associated Diagnoses Date/Ti me LAPAROSCOPY, WITH EXCISION O R FULGURATION OF LESIONS OF OVARY, PELVIC VISCERA, OR PERITONEAL SURFACE Cyst of left ovary 12/11/2024 9:25 EST documented as of this encounter Visit Diagnoses Diagnosis Supervision of normal first , antepartum- Primary Cyst of left ovary Other and unspecified ovarian cyst documented in this encounter Care Teams Drive Man Relationship Specialty Start Date End Date Zina Monroy DO PCP - General 05/27/19 08/05/20 documented as of this encounter
--- OUTSIDE RECORDS SUMMARY | 2024-12-08 15:31 | XMS_ITS | Encounter Summary ---
Author Organization [facility] Address [address] [place] [address] Care Team Providers Care Licensed Nuclear Operator Name Role Phone Zina Monroy Ashli PERKINS Primary Care Provider [phone] Reason for Visit * Reason Onset Date Comments Breast Pain 02/14/2020 Encounter Details Date Type Department Care Team (Late st Contact Info) Description 02/14/2020 Telephone [facility] O[facility]YN Services - [address] [phone] Marva Pearson NP CN [address] [facility], Level [address] [place] [address] Breast Pain Social History Tobacco Use Types Packs/Day Years Used Date Smoking Tobacco: Never Smokeless Tobacco: Never Alcohol Use Standard Drinks/Week Comments No 0 (1 standard drink = 0.6 oz pur e alcohol) AUDIT-C Answer Date Recorded Frequency of Alcohol Consumption Never 07/03/2019 Average Number of Drinks Not on file 019 Frequency of Binge Drinking Not on file 05/2019 Comments No Sex and Gender Information Value [...] encounter Miscellaneous Notes * Telephone Encounter - Skye Villanueva RN - 02/14/2020 1551 EDT Returned call to [place]. She reports worsening right sided breast pain. Has developed a painful lump that is now red. She has been exclusively pumping and bottle feeding. Using Advil and massage/hot compresses , however these measures are not improving her symptoms. Reviewed with MIKE Conroy who will call the patient to assess and make a plan. * Telephone Encounter - Rosalinda David - 02/14/2020 1550 EDT Patient reports very soar red lump on her right breast and her milk supply has gone down. Started about 2-3 days ago, patient reports it's getting worse. She's been trying warm compresses. Patient can be reached @ [phone]. Rosalinda David 02/14/2020 15:55 documented in this encounter Plan of Treatment Upcoming Encounters Date Type Department Care Team (Late st Contact Info) Description 12/11/2024 9:25 EST Hospital Encounter [facility] OR [address] [place] [address] [phone] Celeste Cooper MD [address] [place] [address] 4 [place] [phone] 12/11/2024 9:25 EST - 12/11/2024 11:40 EST Surgery [facility] OR [address] [place] [address] [phone] Celeste Cooper MD [address] [place] [phone] Laparoscopic left ovarian cystectomy [92402 (CPT??)] 12/31/2024 16:15 EST Post-op Visit [facility] OBGYN Services - [address] [phone] Jessika Upton MD [address] [place] [address] [phone] 02/06/2025 13:10 EDT Appointment [facility] OBGYN Services - [address] [phone] 03/05/2025 8:40 EDT Office Visit [facility] Rheumatology & Immunology - [address] [phone] Nikolay Elizabeth MD MPH [address] [place] [phone] Scheduled Procedures Name Priority Associated Diagnoses Date/Ti me LAPAROSCOPY, WITH EXCISION O R FULGURATION OF LESIONS OF OVARY, PELVIC VISCERA, OR PERITONEAL SURFACE Cyst of left ovary 12/11/2024 9:25 EST documented as of this encounter Visit Diagnoses Not on filedocumented in this encounter Care Teams Licensed Nuclear Operator Relationship Specialty Start Date End Date Zina Monroy DO PCP - General 05/27/19 08/05/20 documented as of this encounter
--- OUTSIDE RECORDS SUMMARY | 2024-12-08 15:31 | XMS_ITS | Encounter Summary ---
Author Organization [facility] Address [address] [place] [address] Care Team Providers Care Hrbp Name Role Phone IleanaZina mora Ashli PERKINS Primary Care Provider [phone] Encounter Details Date Type Department Care Team (Late st Contact Info) Description 01/30/2020 23:59 EST Anesthesia Event [facility] [address] [place], [place] [id number] Priya Sidhu DO [address] [place] [phone] Anesthesia Record Procedure Summary Procedure Name Responsible Anesthesiologist Anesthesia Start Time Anesthesia Stop Time LABOR CONSULT Events No events on file. Meds * Agents No agents on file. * Blood No blood administrations on file. Lines, Drains, and Airways No LDAs on file. documented in this encounter Social History Tobacco Use Types Packs/Day Years [...] of Assessment Author No 12/22/2019 18:09 Kirill Dunn ie, RN * Do you have serious difficulty walking or climbing stairs? (5 years old or older) Answer Date of Assessment Author No 12/22/2019 18:09 Kirill Dunn ie, RN * Do you have difficulty dressing [...] Kirill Dunn, RN documented in this encounter OR Notes * Anesthesia Preprocedure Evaluation - Priya Sidhu MD - 01/30/2020 2324 EST Anesthesia Preprocedure Evaluation [facility] Clive is a 24 y.o. female with PMH anxiety and depression admitted to the OB service in labor. Admits to GERD. Denies seizure/stroke, cardiac/renal/hepatic disease, inhaler use. Known intolerance to novocain (nausea/emesis s/p dental procedure). No known complications with previous anesthetics. Paper consent for epidural, spinal, general, TAP block completed and placed in patient chart. Labs: N/A x 72hr Patient Medical History, including Anesthesia History reviewed. Chart and Nursing Notes reviewed, including NPO status and Medication History. Additional ROS/History Findings: Allergies Allergen Reactions ??? Novocain [Procaine] Nausea And Vomiting Patient is now. Past Medical History: Diagnosis Date ??? Abnormal Pap smear of cervix ASCUS (?HPV) or 09/2019 ??? Anxiety ??? Depression ??? Depression Relevant Problems No relevant active problems Clinical information reviewed: @MARGOTH@ Physical Exam Airway Mallampati: I TM distance: >3 FB Neck ROM: full Cardiovascular - normal exam Dental - normal exam Pulmonary - normal exam Abdominal Anesthesia Plan ASA 2 Anesthesia plan and risks discussed. Informed consent obtained from patient. Specific risks discussed were bleeding, dental injury, incomplete block, nausea, vomiting, nerve damage, infection and headache. The preoperative history and physical which was performed within 30 days of this procedure, has been reviewed and the clinically appropriate elements of the physical examination have been repeated. There are no changes to the documented history and physical or, if so, such changes are documented inthis note Obstetrics patient pre-procedure anesthesia evaluation included a discussion of epidural, spinal, general, and TAP block mode(s) of anesthesia. Risks discussed included: Bleeding, infection, nerve injury, spinal headaches, high spinals, hematomas, and low blood pressures with under-perfusion. The possibilities of inadequate epidural/block, block failure, and possible block replacement were also discussed. All patient's questions were answered to their satisfaction. PAT Note (Notes from 12/31/19 through 01/30/20) No notes of this type exist for this encounter. Cosigned by John Avalos MD at 02/05/2020 8:51 EDT documented in this encounter Plan of Treatment Upcoming Encounters Date Type Department Care Team (Late st Contact Info) Description 12/11/2024 9:25 EST Hospital Encounter [facility] OR [address] [place] [address] [phone] Celeste Cooper MD [address] [place] [phone] 12/11/2024 9:25 EST - 12/11/2024 11:40 EST Surgery [facility] OR [address] [place] [address] [phone] Celeste Cooper MD [address] [place] [phone] Laparoscopic left ovarian cystectomy [66954 (CPT??)] 12/31/2024 16:15 EST Post-op Visit [facility] OBGYN Services [address] [phone] Jessika Upton MD [address] [place] [phone] 02/06/2025 13:10 EDT Appointment [facility] OBGYN Services [address] [phone] 03/05/2025 8:40 EDT Office Visit [facility] Rheumatology & Immunology [address] [phone] Nikolay Elizabeth MD [address], [address] [place] [phone] Scheduled Procedures Name Priority Associated Diagnoses Date/Ti me LAPAROSCOPY, WITH EXCISION O R FULGURATION OF LESIONS OF OVARY, PELVIC VISCERA, OR PERITONEAL SURFACE Cyst of left ovary 12/11/2024 9:25 EST documented as of this encounter Visit Diagnoses Not on filedocumented in this encounter Care Teams Hrbp Relationship Specialty Start Date End Date Zina Monroy DO PCP - General 05/27/19 08/05/20 documented as of this encounter
--- OUTSIDE RECORDS SUMMARY | 2024-12-08 15:31 | XMS_ITS | Encounter Summary ---
Author Organization [facility] Address [address] [place] [address] Care Team Providers Care Optical Designer Name Role Phone Zina Monroy Primary Care Provider [phone] Reason for Visit * Reason Onset Date Comments Other 02/14/2020 Encounter Details Date Type Department Care Team (Late st Contact Info) Description 02/14/2020 Telephone [facility] [address] [place], [place] [address] Mariana Conroy, MERCHANDISE DIRECTOR CNM 111 [facility], [facility] [address] [place] [phone] Other Social History Tobacco Use Types Packs/Day [...] Refills Last Filled Start Date End Date dicloxacillin (DYNAPEN) 500 mg capsule Take 1 Cap by mouth every 6 hours for 10 days. 40 Cap 02/14/2020 02/24/2020 documented in this encounter Miscellaneous Notes * Telephone Encounter - Mariana Conroy CNM - 02/14/2020 1616 EDT Spoke with [employer] by phone. She is 2 weeks and pumping and bottle feeding her baby. About 3 days ago she noticed a sore lump on her right breast that has gotten progressively worseand is now red. She also c/o hot/cold chills, feeling headache and body aches today. She has been taking advil around the clock and her temp is currently 99.2. She's been using hand expression each time she pumps and putting on warm compresses. The lump is near her armpit and she thinks its at least an inch across. I advised an antibiotic for mastitis - dicloxacillin 500 QID. She should continue the other supportive measures, make sure she gets as much rest as possible, lots of fluids, nutritious foods. Should expect improvement in 24-48 hours, if no improvement in 48 hours call the office. documented in this encounter Plan of Treatment Upcoming Encounters Date Type Department Care Team (Late st Contact Info) Description 12/11/2024 9:25 EST Hospital Encounter [facility] OR [address] [place] [address] [phone] Celeste Cooper MD [address] [place] [address] [address] [place] [phone] 12/11/2024 9:25 EST - 12/11/2024 11:40 EST Surgery [facility] OR [address] [place] [address] [phone] Celeste Cooper MD [address] [place] [address] [address] [place] [phone] Laparoscopic left ovarian cystectomy [36338 (CPT??)] 12/31/2024 16:15 EST Post-op Visit [facility] OBGYN Services [address] [phone] Jessika Upton MD [address] [place] [phone] 02/06/2025 13:10 EDT Appointment [facility] OBGYN Services [address] [phone] 03/05/2025 8:40 EDT Office Visit [facility] Rheumatology & Immunology [address] [phone] Nikolay Elizabeth MD [address] [place] [phone] Scheduled Procedures Name Priority Associated Diagnoses Date/Ti me LAPAROSCOPY, WITH EXCISION O R FULGURATION OF LESIONS OF OVARY, PELVIC VISCERA, OR PERITONEAL SURFACE Cyst of left ovary 12/11/2024 9:25 EST documented as of this encounter Visit Diagnoses Not on filedocumented in this encounter Care Teams Optical Designer Relationship Specialty Start Date End Date Zina Mnoroy DO PCP - General 05/27/19 08/05/20 documented as of this encounter
--- OUTSIDE RECORDS SUMMARY | 2024-12-08 15:31 | XMS_ITS | Encounter Summary ---
Author Organization [facility] Address [address] [place] [address] Care Team Providers Care Sleeping Car Service Attendant Name Role Phone Zina Monroy Primary Care Provider [phone] Reason for Visit * Reason Comments Routine Visit Encounter Details Date Type Department Care Team (Late st Contact Info) Description 12/30/2019 13:15 EST Routine [facility] OBGYN Services - [address] [phone] Mariluz Hancock NP [facility] 111 [facility], [address] [place] [phone] GA: 34w3d Social History Tobacco Use Types Packs/Day Years [...] Sign Reading Time Taken Comments Blood Pressure 116/70 12/30/2019 1320 EST Pulse - - Temperature - - Respiratory Rate - - Oxygen Saturation - - Inhaled Oxygen Concentration - - Weight 84 kg (185 lb 3.2 oz) 12/30/2019 1320 EST Height 157.5 cm (5' 2.01) 12/30/2019 1320 EST Body Mass Index 33.86 12/30/2019 1320 EST documented in this encounter Functional Status [...] documented in this encounter Progress Notes * Mariluz Hancock APRN - 12/30/2019 1315 EST S: [facility] Clive is here today for a visit at 34w3d. Asking what she can do for heartburn other than TUMS? Takes max of 3-5 per day. Only wish: to not vomit! Would like to be given Zofran with any nausea. Will be supported in labor by her partner and her mom. She has unlimited time off ; partner has 1-3 weeks; her mom has lots of vacation time and will be available to help. Likely vasectomy PP. Has tried IUDs and Nexplanon - didn't like either. Denies bleeding, loss of fluid or painful contractions. + FM. O: Vitals: BP: 116/70 Height: 157.5 cm (62.01) Weight : 84 kg (185 lb 3.2 oz) BMI: 33.936 Fundal Height (cm): 35 cm Heart Rate: 145 Movement: Present Presentation: Vertex A: 24 y.o. at 34w3d IUP S=D, AGA at 32w (24%tile) GERD Rubella NI Anxiety/depression - not on meds Resoled anemia Chronic LBP RH pos P: papaya enzymes, small glass milk, smaller / more freq meals and separate meals from liquids, avoid trigger foods, avoid reclining after eating, can try Pepcid as next step, max 5-6 TUMS per day Discussed contraceptive options and using a bridge method while awaiting vasectomy Reviewed warning signs/when to call Follow up in 2 wks, sooner PRN documented in this encounter Plan of Treatment Upcoming Encounters Date Type Department Care Team (Late st Contact Info) Description 12/11/2024 9:25 EST Hospital Encounter [facility] OR [address] [place] [address] Celeste Cooper MD [address] [place] [phone] 12/11/2024 9:25 EST - 12/11/2024 11:40 EST Surgery [facility] OR [address] [place] [address] [phone] Celeste Cooper MD [address] [place] [phone] Laparoscopic left ovarian cystectomy [06394 (CPT??)] 12/31/2024 16:15 EST Post-op Visit [facility] OBGYN Services - [address] [address] Jessika Upton MD [address] [place] [phone] 02/06/2025 13:10 EDT Appointment [facility] OBGYN Services - [address] [address] 03/05/2025 8:40 EDT Office Visit [facility] Rheumatology & Immunology - [address] [phone] Nikolay Elizabeth MD MPH 111 [facility], [address] [place] [phone] Scheduled Procedures Name Priority Associated Diagnoses Date/Ti me LAPAROSCOPY, WITH EXCISION O R FULGURATION OF LESIONS OF OVARY, PELVIC VISCERA, OR PERITONEAL SURFACE Cyst of left ovary 12/11/2024 9:25 EST documented as of this encounter Visit Diagnoses Diagnosis Supervision of other normal , antepartum- Primary Cyst of left ovary Other and unspecified ovarian cyst documented in this encounter Discontinued Medications Medication Sig Discontinue Reason Start Date End Da te doxylamine-pyridoxine, vit B6, (DICLEGIS) 10-10 mg tablet Take 1 Tab by mouth daily. Take one tab at bedtime. Can increase to one tab at bedtime and one tab in the morning if needed. 07/03/2019 12/30/2019 documented as of this encounter Care Teams Sleeping Car Service Attendant Relationship Specialty Start Date End Date Zina Monroy DO PCP - General 05/27/19 08/05/20 documented as of this encounter
--- OUTSIDE RECORDS SUMMARY | 2024-12-08 15:31 | XMS_ITS | Encounter Summary ---
Author Organization [facility] Address [address] [place] [address] Care Team Providers Care Directory Compiler Name Role Phone Zina Monroy Primary Care Provider [phone] Reason for Visit * Reason Comments Routine Visit Encounter Details Date Type Department Care Team (Late st Contact Info) Description 01/13/2020 13:15 EST Routine [facility] OBGYN Services - [address] [phone] Elva Jha NP [address], [address] [place] [phone] GA: 36w3d Social History Tobacco Use Types Packs/Day Years Used Date Smoking Tobacco: Never Smokeless Tobacco: Never Alcohol Use Standard Drinks/Week Comments No 0 (1 standard drink = 0.6 oz pur e alcohol) AUDIT-C Answer Date Recorded Frequency of Alcohol Consumption Never 07/03/2019 Average Number of Drinks Not on file 019 Frequency of Binge Drinking Not on file 0805/2019 Comments Yes Sex and Gender Information Value Date Recorded Sex Assigned at Female 11/06/2024 15:56 EST Legal Sex Female 15:52 EDT Gender Identity Female 11/12/2019 14:09 EST Sexual Orientation Not on file documented as of this encounter Last Filed Vital Signs Vital Sign Reading Time Taken Comments Blood Pressure 112/78 01/13/2020 1314 EST Pulse - - Temperature - - Respiratory Rate - - Oxygen Saturation - - Inhaled Oxygen Concentration - - Weight 85.7 kg (189 lb) 01/13/2020 1314 EST Height 157.5 cm (5' 2.01) 01/13/2020 1314 EST Body Mass Index 34.56 01/13/2020 1314 EST documented in this encounter [...] documented in this encounter Progress Notes * Elva Jha CNM - 01/13/2020 1315 EST S: [facility] is here today for a visit at 36w2d. Denies bleeding, loss of fluid or painful contractions. + FM. Having some occ lower back cramping but nothing in strong rhythm. Heartburn still bothersome. Has not tried pepcid or papaya enzymes yet. Was also drinking lots of water with meals. Working from home so able to nap PRN. Was taking online CBE which she feels was more helpful for her than herself. Has been reading a lot and feeling prepared. O: Vitals: BP: 112/78 Height: 157.5 cm (62.01) Weight : 85.7 kg (189 lb) BMI: 34.632 Fundal Height (cm): 35 cm Heart Rate: 150 Movement: Present Presentation: Vertex Dilation: 1.5 Effacement (%): 50 Station: -2 Exam per Kelly A: 24 y.o. at 36w2d IUP S=D GERD Rubella NI Anxiety/depression - not on meds Resovled anemia Chronic LBP RH pos/GBS pending P: GBS and opiate consent today Rev'd s/sx of PTL and WTC Rev'd strategies for helping with heartburn, will picker / packer Pepcid Very sure she is done having children and would like to adopt if they have a sibling. Thinking condoms-->vasectomy for BCM. Check [place] if in event of C/S she would want tubal. If so, should have tubal consult in 3rd tri Likely will not do cord blood banking after all Follow up weekly [facility] [place] involved in patient's care. Elva Jha CNM documented in this encounter Plan of Treatment Upcoming Encounters Date Type Department Care Team (Late st Contact Info) Description 12/11/2024 9:25 EST Hospital Encounter [facility] OR [address] [place] [address] Celeste Cooper MD [address] [place] [phone] 12/11/2024 9:25 EST - 12/11/2024 11:40 EST Surgery [facility] OR [address] [place] [address] Celeste Cooper MD [address] [place] [address] [address] [place] [phone] Laparoscopic left ovarian cystectomy [21620 (CPT??)] 12/31/2024 16:15 EST Post-op Visit [facility] OBGYN Services - [address] [phone] Jesskia Upton MD [address] [place] [phone] 02/06/2025 13:10 EDT Appointment [facility] OBGYN Services - [address] [phone] 03/05/2025 8:40 EDT Office Visit [facility] Rheumatology & Immunology - [address] [phone] Nikolay Elizabeth MD [address], [address] [place] [phone] Scheduled Procedures Name Priority Associated Diagnoses Date/Ti me LAPAROSCOPY, WITH EXCISION O R FULGURATION OF LESIONS OF OVARY, PELVIC VISCERA, OR PERITONEAL SURFACE Cyst of left ovary 12/11/2024 9:25 EST documented as of this encounter Procedures Procedure Name Priority Date/Time Associated Diagnosis Comments GROUP B STREP PCR Routine 01/13/2020 13: 54 EST Encounter for supervision of other normal in third trimester documented in this encounter Results * GROUP B STREP PCR (01/13/2020 13:54 EST) Group B Strep PCR Negative Negative 01/15/2020 13:45 EST [facility] Swab DOUCHE WITH RECTAL AND VAGINAL FITTINGS / Unknown Swab / Unknown 01/13/2020 13:54 EST 01/13/2020 14:00 EST us Elva Jha NP CNM MICROBIOLOGY - GENERAL ORDERABLES Final Result [facility] [address] [place] [address] documented in this encounter Visit Diagnoses Diagnosis Encounter for supervision of other normal in third trimester Cyst of left ovary Other and unspecified ovarian cyst documented in this encounter Care Teams Directory Compiler Relationship Specialty Start Date End Date Zina Monroy DO PCP - General 05/27/19 08/05/20 documented as of this encounter
--- OUTSIDE RECORDS SUMMARY | 2024-12-08 15:31 | XMS_ITS | Encounter Summary ---
Author Organization [facility] Address [address] [place] [address] Care Team Providers Care Mammography Tech Name Role Phone Zina Monroy DO Primary Care Provider [phone] Reason for Referral * Consult (3 - 10 Business Days) - Closed Specialty Diagnoses / Procedures Referred By Contac t Referred To Contact Cardiology Diagnoses Supervision of other normal Neena Pat MD Phone: tel: [facility] Cardiology - [address] [place] [address] Phone: tel: fax: Referral ID Status Reason Start Date Expiration Date V isits Requested Visits Authorized [id number] Closed Specialty Services Required 12/22/2019 1 1 Question Answer Reason for Request: intermittent palpitations, shortness of breath, dizziness in - for Holter monitor Expected Discharge Date (Inpatient Only): 12/22/2019 * (Routine) - Receiving Office to Obtain Authorization Specialty Diagnoses / Procedures Referred By Contac t Referred To Contact Neena Pat MD Phone: tel: Referral ID Status Reason Start Date Expiration Date Visits Requested Visits Authorized [id number] Receiving Office to Obtain Authorization Specialty Services Required 0 1 1 Reason for Visit * Reason Comments Irregular Heart Beat Encounter Details Date Type Department Care Team (Late st Contact Info) Description 12/22/2019 17:17 EST - 12/22/2019 19:30 EST Hospital Encounter [facility] Birthing Center Unit [address] [place] [address] Franki David MD 111 [facility], [facility] 4 [place] [address] Supervision of other normal (Primary Dx) Discharge Disposition: Home or Self [...] Sign Reading Time Taken Comments Blood Pressure 113/68 12/22/2019 1900 EST Pulse - - Temperature 36.4 ??C (97.5 ??F) 12/22/2019 1900 EST Respiratory Rate 18 12/22/2019 1900 EST Oxygen Saturation - - Inhaled Oxygen Concentration - - Weight - - Height - - Body Mass Index - - documented in this encounter Functional Status * Are you deaf or do you have serious difficulty hearing? Answer Date of Assessment Author No 12/22/2019 18:09 Kirill Dunn ie, RN * Are you blind or do [...] Assessment Author No 12/22/2019 18:09 Kirill Dunn RN documented as of this encounter Mental Status * Because of a physical, mental, or emotional condition, do you have serious difficulty concentrating, remembering, or making decisions? (5 years old or older) Answer Entry Date Author No 12/22/2019 18:09 Kirill Dunn RN documented in this encounter Medications at Time of Discharge ibuprofen (MOTRIN) 400 mg tablet Take 1 Tab by mouth every 4 hours as needed for Pain. 02/02/2020 acetaminophen (TYLENOL) 325 mg tablet Take 2 Tabs by mouth every 4 hours as needed for Pain. 02/02/2020 0 acetaminophen (TYLENOL) 500 mg tablet Take 500 mg by mouth every 6 hours as needed for Pain. 0 ALPRAZolam (XANAX) 0.5 mg tablet 1 tab(s) orally Daily PRN 04/16/2019 0 docusate sodium (COLACE) 100 mg capsule Take 1 Cap by mouth 2 times daily as needed for Constipation. 02/02/2020 0 doxylamine-pyridoxin e, vit B6, (DICLEGIS) 10-10 mg tablet Take 1 Tab by mouth daily. Take one tab at bedtime. Can increase to one tab at bedtime and one tab in the morning if needed. 28 Tab 1 07/03/2019 0 drospirenone-ethinyl estradioL (JACQUIE) 3-0.02 mg per tablet 1 tab(s) orally once a day 12/14/2018 0 LORazepam (ATIVAN) 0.5 mg tablet 1 tab(s) orally 2 times a day PRN 04/19/2019 0 multivitamin vit-iron fumarate-FA (STUARTNATAL) 27 mg iron- 1 mg tablet tablet Take 1 Tab by mouth daily. 02/03/2020 0 ondansetron (ZOFRAN-ODT) 4 mg disintegrating tablet Take 1 Tab by mouth every 8 hours as needed for Nausea. 30 Tab 2 06/14/2019 0 vit calc,iron,folic ( VITAMIN ORAL) Take by mouth. 0 documented as of this encounter Discharge Disposition Disposition Code Departure Means Destination Home or Self Prison documented in this encounter Progress Notes * Susy Anderson RN - 12/22/2019 1925 EST D/c instructions given. Pt verbalized understanding. Pt d/c home with all instructions given. No signed sheet was available for patient to sign * Neena Pat MD - 12/22/2019 1741 EST L&D Triage Note C/C: palpitations, chest pressure HPI: Anastasiia Duffy is a 24 y.o. @ 33w2d by a 5w5d U/S presenting with intermittent tachycardia and chest pressure for the past 3-4 days. Reports she can just be at rest and will feel her heart racing. Occasionally checks her pulse during these times and notes it is 130-150s. Also feels dizzy/lightheaded when this happens. Does have resolution of this feeling in between episodes and cannot find any exacerbating factors. Of note, reports she had similar episodes 3 years ago while on wellbutrin for which she thinks she had a Holter monitor but didn't have any findings on that (all episodes were sinus or sinus tachycardia). Discontinued the wellbutrin and had not had any further episodes until now. Also has intermittent shortness of breath but denies any chest pain with inspiration. Denies asymmetric LE swelling. Denies F/C/N/V/JOHNSON/vision changes/RUQ pain. Denies ctx or VB. Endorses few episodes of leaking over the past 2 weeks that she thought was urine but isn't sure. Recently had an ultrasound with normal fluid. Endorses lots of movement. Otherwise reports that she is healthy and has an uncomplicated . Does not take any medications currently except for vitamins. O: BP 123/72 Temp 36.5 ??C (97.7 ??F) (Oral) Resp 18 LMP 04/20/2019 (Exact Date) GEN: No acute distress. Patient resting comfortably in bed. CV: RRR, normal S1 and S2 PULM: CTAB, normal efforts ABD: Gravid, soft, non-tender, non-distended EXT: Warm and dry, no tenderness, trace edema FHT: 135 baseline, mod variability, pos accels, neg decels; Reactive NST [place]: no contractions SSE: neg x3 SVE: deferred Bedside U/S: deferred A/P: Anastasiia Duffy is a 24 y.o. @ 33w2d presenting with intermittent palpitations, shortness of breath, and dizziness with tachycardia for the past few days. Here, patient is intermittently tachycardic to 110, with otherwise normal vitals. Possibly physiologic sinus tachycardia of but cannot rule out metabolic disorders. Possibly also 2/2 transient SVT or PACs. Very low concern for PE given patient is healthy, non-obese, active and has no abnormal LE swelling or evidence ofDVT, and O2sat is normal with normal RR. Reactive NST - EKG - TSH and electrolytes - Neg SROM check - Discharge home with plan for outpatient Cardiology follow up for possible repeat Holter monitor Discussed with MIKE Tripathi MD 12/22/2019 17:42 PGY-2 Obstetrics and Gynecology Pager #[phone] Addendum: Results for ANASTASIIA DUFFY ( ) as of 12/22/2019 19:17 12/22/2019 18:01 Sodium 135 (L) Potassium 4.0 CO2 24 Chloride 105 Calcium 9.4 Calculated Calcium 9.4 Phosphorus 3.7 MAGNESIUM Rpt Magnesium 1.7 TSH 2.10 Will dc with outpatient cardiology follow up. Neena Pat MD 12/22/2019 19:18 PGY3, OBGYN Pager #[phone] * Samir Steele RN - 12/22/2019 9036 EST Pt arrived to L&D at 1720 with FOB [place]; admitted to room 10. Pt c/o heart palpitations, heart racing and feeling faint over the past four days intermittently. Pt c/o SOB and feeling flushed.Pt denies contractions. Denies cardiac history. Pt states she has been drinking large amounts of water. Pt placed on heart monitoring. MD Tadeo at bedside for initial eval. .17:39 EKG being performed at bedside. 17:49 SROM check by MD Tadeo. Neg Nitrazine. 17:59 Labs drawn. documented in this encounter Plan of Treatment Upcoming Encounters Date Type Department Care Team (Late st Contact Info) Description 12/11/2024 9:25 EST Hospital Encounter [facility] OR [address] [place] [address] [phone] Celeste Cooper MD [address] [place] [address] 4 [place] [phone] 12/11/2024 9:25 EST - 12/11/2024 11:40 EST Surgery [facility] OR [address] [place] [address] [phone] Celeste Cooper MD [address] [place] [address] 4 [place] [phone] Laparoscopic left ovarian cystectomy [80558 (CPT??)] 12/31/2024 16:15 EST Post-op Visit [facility] OBGYN Services - [address] [phone] Jessika Upton MD [address] [place] [phone] 02/06/2025 13:10 EDT Appointment [facility] OBGYN Services [address] [phone] 03/05/2025 8:40 EDT Office Visit [facility] Rheumatology & Immunology - [address] [phone] Nikolay Elizabeth MD MPH [address] [place] [address], Level [address] [place] [address] Scheduled Procedures Name Priority Associated Diagnoses Date/Ti me LAPAROSCOPY, WITH EXCISION O R FULGURATION OF LESIONS OF OVARY, PELVIC VISCERA, OR PERITONEAL SURFACE Cyst of left ovary 12/11/2024 9:25 EST Scheduled Referrals Name Type Priority Associated Diagnoses Order Schedule PROVIDER FOLLOW-UP INSTRUCTIONS Outpatient Referral Routine Ordered: 12/22/2019 AMB CONS/FOLLOW UP CARDIOLOGY Outpatient Referral Routine Supervision of other normal Ordered: 12/22/2019 documented as of this encounter Procedures Procedure Name Priority Date/Time Associated Diagnosis Comments ECG REPORT - SCANNED 12/31/2019 9:16 EST ECG REPORT - SCANNED 12/25/2019 10:07 EST TSH Routine 12/22/2019 18:01 EST PHOSPHORUS Routine 12/22/2019 18:01 EST MAGNESIUM Routine 12/22/2019 18:01 EST CALCIUM Routine 12/22/2019 18:01 EST ELECTROLYTES Routine 12/22/2019 18:01 EST EKG 12-LEAD Routine 12/22/2019 17:45 EST documented in this encounter Results * ECG REPORT - SCANNED (12/31/2019 9:16 EST) 12/31/2019 9:16 EST us Scan 2 Honing Machine Operator Semiautomatic PROCEDURE/MINOR SURGICAL OR DERABLES Final Result * ECG REPORT - SCANNED (12/25/2019 10:07 EST) 12/25/2019 10:0 7 EST us Scan 2 Honing Machine Operator Semiautomatic PROCEDURE/MINOR SURGICAL OR DERABLES Final Result * PHOSPHORUS (12/22/2019 18:01 EST) Phosphorus 3.7 2.5 - 4.5 mg/dL 12/22/2019 18:28 EST [facility] Blood VENOUS BLOOD / Unknown Venipuncture / Unknown 12/22/2019 18:01 EST 12/22/2019 18:11 EST us Leda Tadeo MD CHEMISTRY & BLOOD GAS ORDERABLES Final Result [facility] [address] [place] [address] * MAGNESIUM (12/22/2019 18:01 EST) Magnesium 1.7 1.7 - 2.8 mg/dL 12/22/2019 18:28 EST [facility] Blood VENOUS BLOOD / Unknown Venipuncture / Unknown 12/22/2019 18:01 EST 12/22/2019 18:11 EST Leda Tadeo MD CHEMISTRY & BLOOD GAS ORDERABLES Final Result [facility] [address] [place] [address] * CALCIUM (12/22/2019 18:01 EST) Calcium 9.4 8.5 - 10.5 mg/dL 12/22/2019 18:28 EST [facility] Calculated Calcium 9.4 8.5 - 10.5 mg/dL 12/22/2019 18:28 EST [facility] Blood VENOUS BLOOD / Unknown Venipuncture / Unknown 12/22/2019 18:01 EST 12/22/2019 18:11 EST us Leda Tadeo MD CHEMISTRY & BLOOD GAS ORDERABLES Final Result [facility] [address] [place] [address] * (ABNORMAL) ELECTROLYTES (12/22/2019 18:01 EST) Sodium 135(L) 136 - 145 mEq/L 12/22/2019 18:28 EST [facility] Potassium 4.0 3.5 - 5.0 mEq/L 12/22/2019 18:28 EST [facility] Chloride 105 96 - 110 mEq/L 12/22/2019 18:28 EST [facility] CO2 Total 24 22 - 32 mEq/L 12/22/2019 18:28 EST [facility] Blood VENOUS BLOOD / Unknown Venipuncture / Unknown 12/22/2019 18:01 EST 12/22/2019 18:11 EST us Leda Tadeo MD CHEMISTRY & BLOOD GAS ORDERABLES Final Result Performing Organization Address City/[facility]/ZIP Co de Phone Number [facility] [address] [place] [address] * TSH (12/22/2019 18:01 EST) TSH 2.10 0.47 - 4.68 uIU/mL 12/22/2019 19:02 EST [facility] Blood VENOUS BLOOD / Unknown Venipuncture / Unknown 12/22/2019 18:01 EST 12/22/2019 18:11 EST Narrative [facility] - 12/22/2019 19:02 EST The results of this assay can be falsely lowered due to the consumption of Biotin. us Leda Tadeo MD CHEMISTRY & BLOOD GAS ORDERABLES Final Result [facility] [address] [place] [address] * EKG 12-LEAD (12/22/2019 17:45 EST) 12/22/2019 17:4 5 EST Narrative [facility] EKG - 12/31/2019 9:10 EST ? [facility] ? Test Date: ?2019-12-22 Pat Name: ? ANASTASIIA WESTCOM ? Department: ?? Birthing Ctr ? Room: ? M710 Gender: ? Female ? Floral Manager: ?? : ?1995 ? Requested By: NYA LEDA Order Number: [id number] ? Reading MD: ?? BASIM AMRTE MD ? Measurements Intervals ?[place] ? Rate: ? 106 ?P: ?47 WA: ? 128 ?QRS: ?18 QRSD: ? 86 ? T: ?14 QT: ? 337 ? QTc: ?449 ? Interpretive Statements SINUS TACHYCARDIA NONSPECIFIC ST & T-WAVE ABNORMALITY ABNORMAL RHYTHM ECG Compared to ECG 02/15/2018 14:58:44 T-wave abnormality now present Sinus rhythm no longer present Sinus arrhythmia no longer present I reviewed the tracing and have either agreed or edited the findings in this report. Electronically Signed On 12-31-2019 9:10:55 EST by BASIM MARTE MD. Procedure Note Basim Marte MD - 12/31/2019 [facility] Test Date: 2019-12-22 Pat Name: [facility] Department: Birthing Ctr [place] [facility] [place]: Female Floral Manager: : 1995 Requested By: NAY TOMPKINS Order Number: [id number] Reading MD: BASIM MARTE MD Measurements Intervals [place] Rate: 106 P: 47 WA: 128 QRS: 18 QRSD: 86 T: 14 QT: 337 QTc: 449 Interpretive Statements SINUS TACHYCARDIA NONSPECIFIC ST & T-WAVE ABNORMALITY ABNORMAL RHYTHM ECG Compared to ECG 02/15/2018 14:58:44 T-wave abnormality now present Sinus rhythm no longer present Sinus arrhythmia no longer present I reviewed the tracing and have either agreed or edited the findings inthis report. Electronically Signed On 12-31-2019 9:10:55 EST by BASIM EARL. us Leda Tadeo MD CARDIAC ECG ORDERABLE S Final Result [facility] EKG documented in this encounter Visit Diagnoses Diagnosis Supervision of other normal - Primary Supervision of other normal Cyst of left ovary Other and unspecified ovarian cyst documented in this encounter Administered Medications Inactive Administered Medications - up to 3 most recent administrations Medication Order MAR Action Action Date Dose Rate Site magnesium oxide (MAG-OX) tablet 400 mg 400 mg, oral, Once (Without Time Specified), 1 dose, Starting on 12/22/19 at 1900, Until 12/22/19 at 1912, Routine Given 12/22/2019 19:12 EST 400 mg documented in this encounter Active and Recently Administered Medications Times are shown in EST. Scheduled Medication Order 12/20/2019 12/21/2019 12/22/2019 magnesium oxide (MAG-OX) tablet 400 mg (COMPLETED) 400 mg, oral, Once (Without Time Specified), 1 dose, Starting on 12/22/19 at 1900, Until 12/22/19 at 1912, Routine 1911 (Given - Provid er: Samir Steele RN) documented in this encounter Orders Medications Ordered That Sergo ht Not Have Been Administered Count Last Ordered Date First Ordered Date magnesium oxide (MAG-OX) tablet 400 mg 1 Diet Count Last Ordered Date First Orde red Date DISCHARGE DIET 2 12/22/2019 Nursing Count Last Ordered Date First Orde red Date ACTIVITY INSTRUCTIONS 1 12/22/2019 BATHING INSTRUCTIONS 1 12/22/2019 Transfer Count Last Ordered Date First Orde red Date TEACHING SERVICE 1 12/22/2019 Discharge Count Last Ordered Date First Orde red Date DISCHARGE PATIENT 1 12/22/2019 Legal Count Last Ordered Date First Orde red Date MISCELLANEOUS DISCHARGE INSTRUCTIONS 1 11/28 documented in this encounter Care Teams Mammography Tech Relationship Specialty Start Date End Date Zina Monroy DO PCP - General 05/27/19 08/05/20 documented as of this encounter
--- OUTSIDE RECORDS SUMMARY | 2024-12-08 15:31 | XMS_ITS | Encounter Summary ---
Author Organization [facility] Address [address] [place] [address] Care Team Providers Care Carpentry Supervisor Name Role Phone Zina Monroy Primary Care Provider [phone] Reason for Visit * Reason Onset Date Comments Other 12/08/2019 Encounter Details Date Type Department Care Team (Late st Contact Info) Description 12/08/2019 Telephone [facility] OBGYN [address] [place] [address] Mariana Conroy, JOY OPERATOR CNM 111 [facility], [facility] [address] [place] [address] Other Social History Tobacco Use [...] as of this encounter Functional Status * Because of a physical, mental, or emotional condition, does this person have difficulty doing errands alone such as visiting a doctor's office or shopping? Answer Date of Assessment Author No 02/15/2018 14:07 EDT documented as of this encounter Mental Status * Because of a physical, mental, or emotional condition, does this person have serious difficulty concentrating, remembering, or making decisions? Answer Entry Date Author No 02/15/2018 14:07 EDT documented in this encounter Miscellaneous Notes * Telephone Encounter - Mariana Conroy CNM - 12/08/2019 1541 EST Spoke with Ulises who states that she's had pain and headaches gradually getting worse over the last 5 days. Started with some right sided rib pain that started off and on but has gotten more consistent. Now feels like the skin is sensitive to the touch. She has also been having right shoulder painthat seems to be right under her shoulder blade. Feels somewhat like a pulled muscle but doesn't rem ember doing anything that started the pain. Finally she's been having headaches that seem to start around 4-5pm and get worse until bed-time. She has taken tylenol but it doesn't seem to help. She ishydrating a lot. The pain is on the right side that goes up the back of her neck to just under her ear on the right side. She reports that she hasn't had any elevated BP's during the . Denies vision changes. I suspect musculoskeletal pain. I suggested that she take tylenol regularly throughout the day for the next 1-2 days, and use heating pad on right shoulder/neck. She asked about massage - ok for gentle but not too deep massage. If the pain worsens she should call the office for evaluation this week. documented in this encounter Plan of Treatment Upcoming Encounters Date Type Department Care Team (Late st Contact Info) Description 12/11/2024 9:25 EST Hospital Encounter [facility] OR [address] [place], [place] [phone] Celeste Cooper MD 111 [facility], [facility], Level [address] [place] [phone] 12/11/2024 9:25 EST - 12/11/2024 11:40 EST Surgery [facility] OR [address] [place] [address] [id number] Celeste Cooper MD [address] [place] [address] [address] [place] [phone] Laparoscopic left ovarian cystectomy [28814 (CPT??)] 12/31/2024 16:15 EST Post-op Visit [facility] OBGYN Services - [address] [phone] Jessika Upton MD [address] [place] [phone] 02/06/2025 13:10 EDT Appointment [facility] OBGYN Services [address] [phone] 03/05/2025 8:40 EDT Office Visit [facility] Rheumatology & Immunology [address] [phone] Nikolay Elizabeth MD [address], [facility] [address] [place] [phone] Scheduled Procedures Name Priority Associated Diagnoses Date/Ti me LAPAROSCOPY, WITH EXCISION O R FULGURATION OF LESIONS OF OVARY, PELVIC VISCERA, OR PERITONEAL SURFACE Cyst of left ovary 12/11/2024 9:25 EST documented as of this encounter Visit Diagnoses Not on filedocumented in this encounter Care Teams Carpentry Supervisor Relationship Specialty Start Date End Date Zina Monroy DO PCP - General 05/27/19 08/05/20 documented as of this encounter
--- OUTSIDE RECORDS SUMMARY | 2024-12-08 15:31 | XMS_ITS | Encounter Summary ---
Author Organization [facility] Address [address] [place] [address] Care Team Providers Care Youth Worker Name Role Phone Zina Monroy Ashli PERKINS Primary Care Provider [phone] Reason for Visit * Reason Onset Date Comments Other 02/03/2020 campus monitor rec ommendation Encounter Details Date Type Department Care Team (Late st Contact Info) Description 02/03/2020 Telephone [facility] OBGYN Services - [address] [phone] Marva Pearson NP [address], [facility] [address] [place] [phone] Other (campus monitor recommendation) Social History Tobacco Use Types Packs/Day Years [...] encounter Miscellaneous Notes * Telephone Encounter - Evelyn Singer RN - 02/03/2020 1649 EDT Spoke w/ pt and let her know the number for the pediatric practice and let her know that several providers are accepting new pt's. She states understanding and has no further questions. * Telephone Encounter - Alicia Saunders - 02/03/2020 1638 EDT .TEWOMENS Are you calling for gynecological, obstetric, or reproductive care? Obstetric Have you been seen here before? Yes If yes, who do you see (Refer to if cant remember)? [facility] Reason for Call as described by patient Patient called to ask for a metal engineering process worker's opinion on a campus monitor at [facility]. Specifically asked for clinical staff recommendation. What is the best phone number for us to reach you back at? [phone] Alicia Saunders 02/03/2020 16:39 documented in this encounter Plan of Treatment Upcoming Encounters Date Type Department Care Team (Late st Contact Info) Description 12/11/2024 9:25 EST Hospital Encounter [facility] OR [address] [place] [address] [id number] Celeste Cooper MD [address] [place] [address] 4 [place] [phone] 12/11/2024 9:25 EST - 12/11/2024 11:40 EST Surgery [facility] OR [address] [place] [address] [phone] Celeste Cooper MD [address] [place] [address] 4 [place] [phone] Laparoscopic left ovarian cystectomy [07966 (CPT??)] 12/31/2024 16:15 EST Post-op Visit [facility] OBGYN Services [address] [phone] Jessika Upton MD [address] [place] [phone] 02/06/2025 13:10 EDT Appointment [facility] OBGYN Services [address] [phone] 03/05/2025 8:40 EDT Office Visit [facility] Rheumatology & Immunology [address] [phone] Nikolay Elizabeth MD MPH [address] [place] [address], [facility] [address] [place] [phone] Scheduled Procedures Name Priority Associated Diagnoses Date/Ti me LAPAROSCOPY, WITH EXCISION O R FULGURATION OF LESIONS OF OVARY, PELVIC VISCERA, OR PERITONEAL SURFACE Cyst of left ovary 12/11/2024 9:25 EST documented as of this encounter Visit Diagnoses Not on filedocumented in this encounter Care Teams Youth Worker Relationship Specialty Start Date End Date Zina Monroy DO PCP - General 05/27/19 08/05/20 documented as of this encounter
--- OUTSIDE RECORDS SUMMARY | 2024-12-08 15:31 | XMS_ITS | Encounter Summary ---
Author Organization [facility] Address [address] [place] [address] Care Team Providers Care Board Machine Set Up Operator Name Role Phone Zina Monroy Primary Care Provider [phone] Reason for Visit * Reason Comments Advice Only Encounter Details Date Type Department Care Team (Late st Contact Info) Description 06/10/2020 10:30 EDT Initial consult [facility] OBGYN Services - [address] [address] Ziggy Edge MD [address] [facility], Level 4 [place] [address] Sterilization consult (Primary Dx) Social History Tobacco Use Types Packs/Day Years Used Date Smoking Tobacco: Never Smokeless Tobacco: Never Tobacco Cessation:Counseling Given: No Alcohol Use Standard Drinks/Week Comments No 0 [...] have Coronavirus / COVID-19? No / Unsure 06/10/2020 10:26 EDT documented as of this encounter Last Filed Vital Signs Vital Sign Reading Time Taken Comments Blood Pressure 125/65 06/10/2020 1038 EDT Pulse - - Temperature - - Respiratory Rate - - Oxygen Saturation - - Inhaled Oxygen Concentration - - Weight 76.1 kg (167 lb 12.8 oz) 06/10/2020 1038 EDT Height 157.5 cm (5' 2.01) 06/10/2020 1038 EDT Body Mass Index 30.68 06/10/2020 1038 EDT documented in this encounter Functional Status [...] documented in this encounter Progress Notes * Aida Ram MA - 06/10/2020 1030 EDT Patient is here today for a tubal consult She is a No concerns with this visit today stated by the patient AIDA RAM MA 06/10/2020 10:40 * Ziggy Edge MD - 06/10/2020 1030 EDT HPI: Ulises Duffy is a 25 y.o. who presents for consultation regarding tubal ligation. States she had planned to have one , but did not sign papers early enough in the . At the time of delivery, she had planned a partner vasectomy, but he does not have insurance at this time. She feels 100% sure she does not want to have any more pregnancies or children ever again. She is well versed in her non-permanent options and feels sure that permanent sterilization is the right choice for her. ROS: Review of Systems Constitutional: Negative for chills and fever. Respiratory: Negative for cough and shortness of breath. Cardiovascular: Negative for chest pain and palpitations. Gastrointestinal: Negative for abdominal pain, constipation, diarrhea, nausea and vomiting. Genitourinary: Negative for dysuria, frequency and urgency. Musculoskeletal: Negative for myalgias. Neurological: Negative for dizziness and headaches. Psychiatric/Behavioral: Negative for depression. The patient is not nervous/anxious. Past Medical History Past Surgical History Past Medical History: Diagnosis Date ??? Abnormal Pap smear of cervix ASCUS (?HPV) or 09/2019 ??? Anxiety ??? Depression ??? Depression History reviewed. No pertinent surgical history. Obstetric History Gynecologic History OB History Para Term AB Living 3 1 1 0 2 1 SAB TAB Ectopic Multiple Live Births 0 2 0 0 1 # Outcome Date GA Lbr Juan Carlos/2nd Weight Sex Delivery Anes PTL Lv 3 Term 01/31/20 39w0d / 00:27 3350 g (7 lb 6.2 oz) F VIPUL 2 TAB 2018 10w0d 1 TAB 2017 4w0d Not reviewed in additional detail Social History Family History Social History Tobacco Use ??? Smoking status: Never Smoker ??? Smokeless tobacco: Never Used Substance Use Topics ??? Alcohol use: No Frequency: Never ??? Drug use: No Problem Relation Name Comments Anxiety Disorder Mother Anxiety Disorder Brother Anxiety Disorder Sister Breast Cancer Maternal Grandmother Depression Mother Depression Brother Depression Sister Hypertension Maternal Grandmother Hypertension Maternal Grandfather Medications Allergies Current Outpatient Medications: acetaminophen (TYLENOL) 325 mg tablet docusate sodium (COLACE) 100 mg capsule ibuprofen (MOTRIN) 400 mg tablet multivitamin vit-iron fumarate-FA (STUARTNATAL) 27 mg iron- 1 mg tablet tablet vit calc,iron,folic ( VITAMIN ORAL) No current facility-administered medications for this visit. Allergies Allergen Reactions ??? Novocain [Procaine] Nausea And Vomiting Objective: BP 125/65 Ht 157.5 cm (62.01) Wt 76.1 kg (167 lb 12.8 oz) LMP 06/08/2020 (Approximate) BMI30.68 kg/m?? Physical Exam CV: RRR Lung: CTAB Sterilization consult 25yo P1 who presents for consultation regarding permanent sterilization - Reviewed [facility] and Medicaid consent forms, in particular discussed increased risks of regret given her age. We reviewed alternative forms of control, male vasectomy and the irreversible and permanent nature of the procedure. She wished to proceed and signed both the tubal forms and the surgical consent forms. - Will send to materials scheduler to arrange, tentative date 07/15 for laparoscopic bilateral salpingectomy. - All questions answered I spent a total of 30 minutes in face to face time with this patient today and >50% of that timewas spent in counseling and coordination of care as described in the progress note. Ziggy Edge MD documented in this encounter Miscellaneous Notes * Assessment & Plan Note - Ziggy Edge MD - 06/10/2020 1147 EDT Associated Problem(s): Sterilization consult (Resolved 11/05/2020) 25yo P1 who presents for consultation regarding permanent sterilization - Reviewed [facility] and Medicaid consent forms, in particular discussed increased risks of regret given her age. We reviewed alternative forms of control, male vasectomy and the irreversible and permanent nature of the procedure. She wished to proceed and signed both the tubal forms and the surgical consent forms. - Will send to materials scheduler to arrange, tentative date 07/15 for laparoscopic bilateral salpingectomy. - All questions answered documented in this encounter Plan of Treatment Upcoming Encounters Date Type Department Care Team (Alisha st Contact Info) Description 12/11/2024 9:25 EST Hospital Encounter [facility] OR [address] [place] [address] [phone] Celeste Cooper MD [address] [place] [address] 4 [place] [phone] 12/11/2024 9:25 EST - 12/11/2024 11:40 EST Surgery [facility] OR [address] [place] [address] [phone] Celeste Cooper MD [address] [place] [phone] Laparoscopic left ovarian cystectomy [55185 (CPT??)] 12/31/2024 16:15 EST Post-op Visit [facility] OBGYN Services - [address] [address] Jessika Upton MD [address] [place] [phone] 02/06/2025 13:10 EDT Appointment [facility] OBGYN [address] [phone] 03/05/2025 8:40 EDT Office Visit [facility] Rheumatology & Immunology - [address] [phone] Nikolay Elizabeth MD MPH [address] [place] [address] 5 [place] [phone] Scheduled Procedures Name Priority Associated Diagnoses Date/Ti me LAPAROSCOPY, WITH EXCISION O R FULGURATION OF LESIONS OF OVARY, PELVIC VISCERA, OR PERITONEAL SURFACE Cyst of left ovary 12/11/2024 9:25 EST documented as of this encounter Visit Diagnoses Diagnosis Sterilization consult- Primary Other general counseling and advice for contraceptive management Cyst of left ovary Other and unspecified ovarian cyst documented in this encounter Care Teams Board Machine Set Up Operator Relationship Specialty Start Date End Date Zina Monroy DO PCP - General 05/27/19 08/05/20 documented as of this encounter
--- OUTSIDE RECORDS SUMMARY | 2024-12-08 15:31 | XMS_ITS | Encounter Summary ---
Author Organization [facility] Address [address] [place] [address] Care Team Providers Care Coffee Maker Servicer Name Role Phone Zina Monroy Primary Care Provider [phone] Encounter Details Date Type Department Care Team (Latest Contact Info) Description 02/19/2020 Travel Social History Tobacco Use Types Packs/Day [...] have Coronavirus / COVID-19? No / Unsure 02/19/2020 11:18 EDT documented as of this encounter Functional [...] Description 12/11/2024 9:25 EST Hospital Encounter [facility] OR [address] [place] [address] [phone] Celeste Cooper MD [address] [place] [phone] 12/11/2024 9:25 EST - 12/11/2024 11:40 EST Surgery [facility] OR [address] [place] [address] [phone] Celeste Cooper MD [address] [place] [address] 4 [place] [phone] Laparoscopic left ovarian cystectomy [05145 (CPT??)] 12/31/2024 16:15 EST Post-op Visit [facility] OBGYN Services - [address] [phone] Jessika Upton MD [address] [place] [phone] 02/06/2025 13:10 EDT Appointment [facility] OBGYN Services - [address] [address] 03/05/2025 8:40 EDT Office Visit [facility] Rheumatology & Immunology [address] [phone] Nikolay Elizabeth MD [address] [place] [phone] Scheduled Procedures Name Priority Associated Diagnoses Date/Ti me LAPAROSCOPY, WITH EXCISION O R FULGURATION OF LESIONS OF OVARY, PELVIC VISCERA, OR PERITONEAL SURFACE Cyst of left ovary 12/11/2024 9:25 EST documented as of this encounter Visit Diagnoses Not on filedocumented in this encounter Care Teams Coffee Maker Servicer Relationship Specialty Start Date End Date Zina Monroy DO PCP - General 05/27/19 08/05/20 documented as of this encounter
--- OUTSIDE RECORDS SUMMARY | 2024-12-08 15:31 | XMS_ITS | Encounter Summary ---
Author Organization [facility] Address [address] [place] [address] Care Team Providers Care Raw Stock Machine Feeder Name Role Phone Zina Monroy Primary Care Provider [phone] Encounter Details Date Type Department Care Team (Late st Contact Info) Description 12/16/2019 Orders Only [facility] OBGYN Services - [address] [address] Alicia Roche MA Anemia during in third trimester (Primary Dx) Social History Tobacco Use Types [...] 02/15/2018 14:07 EDT documented in this encounter Plan of Treatment Upcoming Encounters Date Type Department Care Team (Late st Contact Info) Description 12/11/2024 9:25 EST Hospital Encounter [facility] OR [address] [place] [address] [phone] Celeste Cooper MD [address] [place] [address] 4 [place] [phone] 12/11/2024 9:25 EST - 12/11/2024 11:40 EST Surgery [facility] OR [address] [place] [address] [phone] Celeste Cooper MD [address] [place] [phone] Laparoscopic left ovarian cystectomy [34618 (CPT??)] 12/31/2024 16:15 EST Post-op Visit [facility] OBGYN Services - [address] [phone] Jessika Upton MD [address] [place] [phone] 02/06/2025 13:10 EDT Appointment [facility] OBGYN Services - [address] [phone] 03/05/2025 8:40 EDT Office Visit [facility] Rheumatology & Immunology - [address] [phone] Nikolay Elizabeth MD MPH [address] [place] [address] 5 [place] [phone] Scheduled Procedures Name Priority Associated Diagnoses Date/Ti me LAPAROSCOPY, WITH EXCISION O R FULGURATION OF LESIONS OF OVARY, PELVIC VISCERA, OR PERITONEAL SURFACE Cyst of left ovary 12/11/2024 9:25 EST documented as of this encounter Procedures Procedure Name Priority Date/Time Associated Diagnosis Comments POCT HEMOGLOBIN Routine 12/16/2019 13:20 EST Anemia during in third trimester documented in this encounter Results * POCT HEMOGLOBIN (12/16/2019 13:20 EST) Hemoglobin, POC 11.6 11.6 - 15.2 g/dL POINT OF CARE [facility] Blood CAPILLARY BLOOD / Unknown 12/16/2019 13:20 EST Elizabeth Kendrick CASH MANAGEMENT CLERK CNM POINT OF CARE TEST ORDERA BLES Final Result POINT OF CARE [facility] documented in this encounter Visit Diagnoses Diagnosis Anemia during in third trimester- Primary Cyst of left ovary Other and unspecified ovarian cyst documented in this encounter Care Teams Raw Stock Machine Feeder Relationship Specialty Start Date End Date Zina Monroy DO PCP - General 05/27/19 08/05/20 documented as of this encounter
--- OUTSIDE RECORDS SUMMARY | 2024-12-08 15:31 | XMS_ITS | Encounter Summary ---
Author Organization [facility] Address [address] [place] [address] Care Team Providers Care Tool Clerk Name Role Phone Zina Monroy DO Primary Care Provider [phone] Reason for Referral * TEST RACK OPERATOR (Routine) - Specialty Report Received Specialty Diagnoses / Procedures Referred By Seema kapoor Referred To Contact Diagnoses Uterine size date discrepancy , third trimester Procedures US OB FOLLOWUP Elizabeth Kendrick NP CNM Phone: tel: fax: Referral ID Status Reason Start Date Expiration Date V isits Requested Visits Authorized [id number] Specialty Report Received 12/02/2019 1 1 Reason for Visit * TEST RACK OPERATOR (Routine) - Specialty Report Received Specialty Diagnoses / Procedures Referred By Seema kapoor Referred To Contact Diagnoses Uterine size date discrepancy , third trimester Procedures US OB FOLLOWUP Elizabeth Kendrick NP CNM Phone: tel: fax: Referral ID Status Reason Start Date Expiration Date V isits Requested Visits Authorized [id number] Specialty Report Received 12/02/2019 1 1 Encounter Details Date Type Department Care Team (Latest Contact Info) Description 12/16/2019 13:34 EST - 12/17/2019 23:59 EST Hospital Encounter [facility] Obstetrics Services - [place] [address] [place], [place] [phone] Uterine size date discrepancy , third trimester Discharge Disposition: Home or Self Care Social [...] 02/15/2018 14:07 EDT documented in this encounter Medications at Time of Discharge acetaminophen (TYLENOL) 500 mg tablet Take 500 mg by mouth every 6 hours as needed for Pain. 0 ALPRAZolam (XANAX) 0.5 mg tablet 1 tab(s) orally Daily PRN 04/16/2019 0 doxylamine-pyridoxin e, vit B6, (DICLEGIS) 10-10 [...] 2 times a day PRN 04/19/2019 0 ondansetron (ZOFRAN-ODT) 4 mg disintegrating tablet [...] 12/11/2024 9:25 EST Hospital Encounter [facility] OR [address] [place] [address] [phone] Celeste Cooper MD [address] [place] [address] 4 [place] [phone] 12/11/2024 9:25 EST - 12/11/2024 11:40 EST Surgery [facility] OR [address] [place] [phone] Celeste Cooper MD [address] [place] [address] 4 [place] [phone] Laparoscopic left ovarian cystectomy [74819 (CPT??)] 12/31/2024 16:15 EST Post-op Visit [facility] OBGYN Services [address] [phone] Jessika Upton MD [address] [place] [phone] 02/06/2025 13:10 EDT Appointment [facility] OBGYN Services [address] [phone] 03/05/2025 8:40 EDT Office Visit [facility] Rheumatology & Immunology - [address] [phone] Nikolay Elizabeth MD MPH [address] [place] [address] 5 [place] [phone] Scheduled Procedures Name Priority Associated Diagnoses Date/Ti me LAPAROSCOPY, WITH EXCISION O R FULGURATION OF LESIONS OF OVARY, PELVIC VISCERA, OR PERITONEAL SURFACE Cyst of left ovary 12/11/2024 9:25 EST documented as of this encounter Procedures Procedure Name Priority Date/Time Associated Diagnosis Comments US OB FOLLOWUP Routine 12/16/2019 14:48 EST Uterine size date discrepancy , third trimester documented in this encounter Results * US OB FOLLOWUP (12/16/2019 14:48 EST) Anatomical Region Laterality Modality Pelvis Ultrasound 12/16/2019 14:3 2 EST Narrative 12/16/2019 15:22 EST Indication S>D. History ======= General History Height 157 cm Height (ft) ?5 ft Height (in) ?2 in Previous Outcomes ?3 Para ?? 0 Alan children born (T) ?0 Alan children born (P) ?0 Abortions (A) ??2 Alan living children (L) ??0 Number of fetuses: 1. Maternal Assessment Height 157 cm Height (ft) ?5 ft Height (in) ?2 in Physical Exam Initial weight 72 kg Initial weight (lb) ?158 lb Initial BMI ?28.90 kg/m?? Dating ======= Ultrasound examination on: 12/16/2019 GA by U/S based upon: ??AC, BPD, Femur, HC GA by U/S ??31 w + 3 d RHODA by U/S: ?02/14/2020 Assigned: ??Dating performed on 06/12/2019, based on ultrasound (CRL) Assigned GA ?32 w + 3 d Assigned RHODA: ??02/07/2020 General Evaluation Cardiac activity: Present. FHR 135 bpm. movements: visualized. Presentation: cephalic, maternal right. Placenta: posterior. Amniotic fluid: Amount of AF: normal. MVP 4.6 cm. ROLANDO 13.6 cm. Q1 4.1 cm, Q2 2.3 cm, Q3 2.6 cm, Q4 4.6 cm. Anatomy Cranium: ?? normal Lateral ventricles: ?normal Midline falx: ??normal Cranium: ?? normal shape and size 4-chamber view: ?normal Stomach: ?? normal Kidneys: ?? normal Bladder: ?? normal Gender: ?female Wants to know gender: ??yes Biometry Biometry BPD ?77.8 mm 12% 31w 2d Hadlock OFD ?102.2 mm ?68% 33w 1d Liu HC 281.1 mm ?9% 30w 0d [place] AC 282.4 mm ?45% 32w 2d Hadlock Femur ??62.7 mm 64% 32w 2d Liu Humerus ?56.1 mm 61% 32w 4d Liu EFW ?1,899 g 24% Kirshnan Calculated by: Hadlock ([id number]-HW-FL) EFW (lb) ?? 4 lb EFW (oz) ?? 3 oz Cephalic index 0.76 ?14% Nicolaides HC / AC ?1.00 FL / BPD ?? 0.81 FL / AC ?0.22 MVP ?4.6 cm ROLANDO ?13.6 cm FHR ?135 bpm Head / Face / Neck Crab Picker 6.7 mm Method ======== Transabdominal ultrasound examination, [place] E10. View: Sufficient. Impression [id number] Follow-up obstetrical ultrasound This is a alan gestation. biometry is consistent with prior dating. Except where noted above, the anatomy was not reviewed in detail as this is a follow-up study and the anatomy was previously assessed. Normal fluid and movement are noted. Follow-up Follow-up as clinically indicated. DATE OF SERVICE: 12/16/2019 Procedure Note Danielle Monge MD - 12/16/2019 Indication S>D. History ======= General History Height 157 cm Height (ft) 5 ft Height (in) 2 in Previous Outcomes 3 Para 0 Alan children born (T) 0 Alan children born (P) 0 Abortions (A) 2 Alan living children (L) 0 Number of fetuses: 1. Maternal Assessment Height 157 cm Height (ft) 5 ft Height (in) 2 in Physical Exam Initial weight 72 kg Initial weight (lb) 158 lb Initial BMI 28.90 kg/m?? Dating ======= Ultrasound examination on: 12/16/2019 GA by U/S based upon: AC, BPD, Femur, HC GA by U/S 31 w + 3 d RHODA by U/S: 02/14/2020 Assigned: Dating performed on 06/12/2019, based on ultrasound (CRL) Assigned GA 32 w + 3 d Assigned RHODA: 02/07/2020 General Evaluation Cardiac activity: Present. FHR 135 bpm. movements: visualized. Presentation: cephalic, maternal right. Placenta: posterior. Amniotic fluid: Amount of AF: normal. MVP 4.6 cm. ROLANDO 13.6 cm. Q1 4.1 cm,Q2 2.3 cm, Q3 2.6 cm, Q4 4.6 cm. Anatomy Cranium: normal Lateral ventricles: normal Midline falx: normal Cranium: normal shape and size 4-chamber view: normal Stomach: normal Kidneys: normal Bladder: normal Gender: female Wants to know gender: yes Biometry Biometry BPD 77.8 mm 12% 31w 2d Hadlock OFD 102.2 mm 68% 33w 1d Liu HC 281.1 mm 9% 30w 0d [place] AC 282.4 mm 45% 32w 2d Hadlock Femur 62.7 mm 64% 32w 2d Liu Humerus 56.1 mm 61% 32w 4d Liu EFW 1,899 g 24% Krishnan Calculated by: Hadlock (FRA-TS-KS-FL) EFW (lb) 4 lb EFW (oz) 3 oz Cephalic index 0.76 14% Nicolaides HC / AC 1.00 FL / BPD 0.81 FL / AC 0.22 MVP 4.6 cm ROLANDO 13.6 cm FHR 135 bpm Head / Face / Neck Crab Picker 6.7 mm Method ======== Transabdominal ultrasound examination, [place] E10. View: Sufficient. Impression [id number] Follow-up obstetrical ultrasound This is a alan gestation. biometry is consistent with prior dating. Except where noted above, the anatomy was not reviewed in detail asthis is a follow-up study and the anatomy was previously assessed. Normal fluid and movement are noted. Follow-up Follow-up as clinically indicated. DATE OF SERVICE: 12/16/2019 us Elizabeth Kendrick BICYCLE FITTER CNM IMG US OB ORDERABLES Юлия l Result documented in this encounter Visit Diagnoses Diagnosis Uterine size date discrepancy , third trimester Cyst of left ovary Other and unspecified ovarian cyst documented in this encounter Care Teams Tool Clerk Relationship Specialty Start Date End Date Zina Monroy DO PCP - General 05/27/19 08/05/20 documented as of this encounter
--- OUTSIDE RECORDS SUMMARY | 2024-12-08 15:31 | XMS_ITS | Encounter Summary ---
Author Organization [facility] Address [address] [place] [address] Care Team Providers Care Doctor Of Naprapathic Medicine Name Role Phone Abbot Zina Ashli PERKINS Primary Care Provider [phone] Reason for Visit * Reason Comments Post- Care * Consult (Routine) - Order Cancelled Specialty Diagnoses / Procedures Referred By Seema kapoor Referred To Contact Obstetrics & Gynecology Diagnoses , unspecified gestational age Mariluz Hancock NP [facility] [place] Phone: tel: fax: [facility] [address] [address] Phone: tel: fax: Referral ID Status Reason Start Date Expiration Date Visits Requested Visits Authorized [id number] Order Cancelled Specialty Services Required 02/02/2020 1 1 Encounter Details Date Type Department Care Team (Late st Contact Info) Description 02/20/2020 9:15 EDT Telemedicine [facility] [address] [id number] Mariana Conroy NP [address] [place] [phone] Routine follow-up (Primary Dx) Social History Tobacco Use Types [...] documented in this encounter Progress Notes * Mariana Conroy CNM - 02/20/2020 0915 EDT 2 attempts made to reach at home phone number. Left messages both times. Instructions to call office if she has any questions/concerns to speak to CNM. Otherwise will plan to connect at scheduled 6 week visit on 03/16/20. Ulises did call back, we discussed the following: Ulises reports that her right breast is feeling much better after starting the antibiotics on 02/13,her aches and chills went away. However, a couple days later she developed a sore area on her left breast, that went away but then came back. Currently it feels very tender and painful, its on the outside upper quadrant of left breast. There is redness, she currently has an ice pack on it. She's taking advil and has not noticed a fever or any body aches/chills. She continues to pump but less frequently and is no longer pumping her right side. She is slowly weaning off of pumping and switching to formula, has already been supplementing with formula. She pumps when my body tells me I should, according to how her breasts feel. She is pumping her left side about every 5 hours and getting 2-2.5 oz. She uses massage and warm compresses with pumping. She is feeding the baby both pumped milk and formula as needed. I advised that she continue pumping on a schedule until the painful area on left breast has improved, then continue to wean off pumping as she desires. She has 4-5 days left of dicloxacillin prescription and should continue to take this. If her symptoms worsen she should call tolet us know as we would consider antibiotic change. Continue with advil and other comfort measures. She states that her bleeding is very light. She has no more pain around her stitches and is using the bathroom without any difficulties. They are practicing social distancing and she has not left thehouse in 2 weeks, other than one pedi check up. Her is also home now, and her mother does come over to provide some help. Sleeping has been tough as the baby is spitting up a lot and fussy. Her control plan is to use condoms until her partner gets a vasectomy. We discussed her 6 week visit. I think its reasonable if she continues to feel well and healthy that we do a phone visit at that time due to covid-19 precautions. This is already scheduled on 03/16. She will call with other concerns as needed. I spent 15 minutes discussing the above. documented in this encounter Plan of Treatment Upcoming Encounters Date Type Department Care Team (Late st Contact Info) Description 12/11/2024 9:25 EST Hospital Encounter [facility] OR [address] [place] [address] [id number] Celeste Cooper MD [address] [place] [address] [address] [place] [phone] 12/11/2024 9:25 EST - 12/11/2024 11:40 EST Surgery [facility] OR [address] [place] [address] [id number] Celeste Cooper MD [address] [place] [address] [address] [place] [phone] Laparoscopic left ovarian cystectomy [50682 (CPT??)] 12/31/2024 16:15 EST Post-op Visit [facility] [address] [id number] Jessika Upton MD [address] [place] [phone] 02/06/2025 13:10 EDT Appointment [facility] [address] [id number] 03/05/2025 8:40 EDT Office Visit [facility] - [address] [id number] Nikolay Elizabeth MD [address], [facility] [address] [place] [phone] Scheduled Procedures Name Priority Associated Diagnoses Date/Ti me LAPAROSCOPY, WITH EXCISION O R FULGURATION OF LESIONS OF OVARY, PELVIC VISCERA, OR PERITONEAL SURFACE Cyst of left ovary 12/11/2024 9:25 EST documented as of this encounter Visit Diagnoses Diagnosis Routine follow-up- Primary Cyst of left ovary Other and unspecified ovarian cyst documented in this encounter Care Teams Doctor Of Naprapathic Medicine Relationship Specialty Start Date End Date Zina Monroy DO PCP - General 05/27/19 08/05/20 documented as of this encounter
--- OUTSIDE RECORDS SUMMARY | 2024-12-08 15:31 | XMS_ITS | Encounter Summary ---
Author Organization [facility] Address [address] [place] [address] Care Team Providers Care Corporate Legal Assistant Name Role Phone Zina Monroy Primary Care Provider [phone] Reason for Visit * Reason Comments Laboring * Auth/Cert Specialty Diagnoses / Procedures Referred By Contac t Referred To Contact Diagnoses Referral ID Status Reason Start Date Expiration Date Visits Re quested Visits Authorized [id number] 1 1 Encounter Details Date Type Department Care Team (Late st Contact Info) Description 01/30/2020 22:51 EST - 02/02/2020 15:53 EDT Hospital Encounter [facility] [address] [place], [place] [id number] Franki David MD [address] [facility], [facility] [address] [place] [id number] Day Craft MD [address] [place] [id number] , unspecified gestational age Discharge Disposition: Home or Self Care Social [...] Sign Reading Time Taken Comments Blood Pressure 116/56 02/02/2020 0740 EDT Pulse - - Temperature 36.5 ??C (97.7 ??F) 02/02/2020 0740 EDT Respiratory Rate 18 02/02/2020 0740 EDT Oxygen Saturation 99% 02/02/2020 0740 EDT Inhaled Oxygen Concentration - - Weight 87.5 kg (193 lb) 01/31/2020 0800 EST Height 157.5 cm (5' 2.01) 01/31/2020 0800 EST Body Mass Index 35.29 01/31/2020 0800 EST documented in this encounter Functional Status [...] ace, RN documented in this encounter Discharge Summaries * Mariluz Hancock APRN - 01/31/2020 0427 EST Department of GLUE MOUNTER OPERATOR Maternal Discharge Summary Information for the patient's : Carleen Duffy [[id number]] Carleen Duffy Maternal Name: Ulises Duffy : 1995 Attending: Franki David MD Admission: 01/30/2020 Discharge: 02/02/20 Reason for Admission: Admission indication: labor/ROM Delivery Indications: Maternal Indications for delivery: Not applicable Indication for delivery: Not applicable Principal Procedure: Spontaneous Vaginal Delivery Secondary Procedures: none Hospital Course: Ulises Duffy is an 24 y.o. P0020 at 39w0d delivered by Spontaneous Vaginal Delivery. She presented on 01/30/2020 with spontaneous. She progressed to complete over the next few hours, and began to push around 0300. At 0325, FHTwas spotty but bradycardia noted. Pt encouraged to push and a small L lateral episiotomy was cut. NICU team was called for assessment. After a total of 30 minutes of pushing she delivered a healthy vigorous female weighing 3350g to chest with Apgars of 8/10. After delayed cord clamping, briefly moved to warmer for suctioning and returned to chest. Placenta was delivered intact with controlled cord traction. Pt with trickle of blood vaginally and 10U IM pitocin administered with control of bleeding obtained. Small, midline, 1st degree perineal laceration contiguous with small, sub-centimeter episiotomy was repaired in the usual fashion using 3- 0 vicryl. Additional minimal R sided labial tear was noted and not repaired. Total EBL was 400cc. and mother stable when providers exited the room. The patient's course was uncomplicated . She obtained good pain control, tolerated a regular diet, was ambulating and voiding independently. Her lochia was within normal limits and she initiated . The patient was subsequently discharged on PPD# 2 with instructions to follow-up for routine care at 2 and 6 weeks. Hospital Problems: Active Hospital Problems Diagnosis Date Noted ??? 01/31/2020 Allergies: Novocain [procaine] Medications during current : Medications Prior to Admission Medication Sig Dispense Refill Last Dose ??? acetaminophen (TYLENOL) 500 mg tablet Take 500 mg by mouth every 6 hours as needed for Pain. Past Week at Unknown time ??? ondansetron (ZOFRAN-ODT) 4 mg disintegrating tablet Take 1 Tab by mouth every 8 hours as neededfor Nausea. 30 Tab 2 01/30/2020 at Unknown time ??? vit calc,iron,folic ( VITAMIN ORAL) Take by mouth. 01/29/2020 at Unknown time LABOR INFORMATION Labor Onset: Spontaneous Labor Analgesia: None Amniotic Fluid Color: Duration Rupture of Membranes: hours minutes DELIVERY INFORMATION Spontaneous Vaginal Delivery ; Delivery / Repair Anesthesia: None EBL: 400.00 Placenta: Method: Controlled Cord Traction Labor and Delivery Complications and/or Procedures: None INFORMATION Date: 01/31/2020 Time: 033 Weight: 3350 g (7 lb 6.2 oz) Sex: female Apgars: 8 10 Immunizations indicated : Rubella Clinical Issues Needing Follow-up: support Contraception Plan: Condoms/vasectomy Other: Results Pending at Discharge: Test results still pending from this admission None Condition at Discharge: Stable Discharge Disposition: Home Mariluz Hancock CNM Cosigned by Shefali Cabrera MD at 02/02/2020 16:36 EDT documented in this encounter Medications at Time of Discharge ibuprofen (MOTRIN) 400 mg tablet Take 1 Tab by mouth every 4 hours as needed for Pain. 02/02/2020 acetaminophen (TYLENOL) 325 mg tablet Take 2 Tabs by mouth every 4 hours as needed for Pain. 02/02/2020 10/21/2020 ALPRAZolam (XANAX) 0.5 mg tablet 1 tab(s) orally Daily PRN 04/16/2019 11/05/2020 docusate sodium (COLACE) 100 mg capsule Take 1 Cap by mouth 2 times daily as needed for Constipation. 02/02/2020 08/05/2020 drospirenone-ethi nyl estradioL (JACQUIE) 3-0.02 mg per tablet 1 tab(s) orally once a day 12/14/2018 10/21/2020 LORazepam (ATIVAN) 0.5 mg tablet 1 tab(s) orally 2 times a day PRN 04/19/2019 11/05/2020 multivitamin vit-iron fumarate-FA (STUARTNATAL) 27 mg iron- 1 mg tablet tablet Take 1 Tab by mouth daily. 02/03/2020 08/05/2020 vit calc,iron,folic ( VITAMIN ORAL) Take by mouth. 08/05/2020 documented as of this encounter Ordered Prescriptions Prescription Sig Dispense Quantity Refills Last Filled Start Date End Date ibuprofen (MOTRIN) 400 mg tablet Take 1 Tab by mouth every 4 hours as needed for Pain. 02/02/2020 multivitamin vit-iron fumarate-FA (STUARTNATAL) 27 mg iron- 1 mg tablet tablet Take 1 Tab by mouth daily. 02/03/2020 08/05/2020 docusate sodium (COLACE) 100 mg capsule Take 1 Cap by mouth 2 times daily as needed for Constipation . 02/02/2020 08/05/2020 acetaminophen (TYLENOL) 325 mg tablet Take 2 Tabs by mouth every 4 hours as needed for Pain. 02/02/2020 10/21/2020 documented in this encounter Discharge Disposition Disposition Code Departure Means Destination Home or Self Fdc documented in this encounter Progress Notes * Mariluz Hancock, WEIGHT CALCULATOR - 02/02/2020 1134 EDT S: Feeling good this AM. Ready to go home. Bleeding light, no clots. Voiding and ambulating withoutdifficulty. + BM. Pain well controlled. Perineum not very sore. Mood is good. going well, baby prefers left side but can get on right. Milk coming in. Plans condoms and then vasectomy for contraception. Has tried pills, nexplanon, and both IUDs but hasn't liked them or side effects. Her mom and partner for support, lots of local help. O: BP 116/56 (BP Cuff Location: Right arm, BP Patient Position: Sitting) Temp 36.5 ??C (97.7 ??F)(Temporal) Resp 18 Ht 157.5 cm (62.01) Wt 87.5 kg (193 lb) LMP 04/20/2019 (Exact Date) SpO2 99% Unknown BMI 35.29 kg/m?? Breasts filling, Nipples intact Fundus firm @ U-1 Scant Lochia Perineum sutures intact, no edema or bruising LE trace edema, no erythema A: 24 y.o. yo day 2 s/p with left lateral episiotomy and 1st degree lacerations repaired Stable with normal involution initiated Blood type O pos GBS neg Rubella NI - MMR given Hx anxiety/depression not on meds P: Nothing PV x 6 weeks Discussed safe spacing, contraceptive options; discussed 3 neg sperm counts following vasectomy and that natural family planning not reliable with Continue PNVs while Fiber and protein rich diet, good hydration, Colace PRN Discharge home, instructions reviewed: S/sx infection, depression/anxiety, normal bleeding, activity guidelines. RTO in 2 and 6 weeks with CNMs @ [facility], sooner PRN * Mariana Conroy, MIKE - 02/01/2020 1152 EST S: Feeling quite well this morning, pleased with experience. Proud of herself that she didn'tget pain meds. Bleeding has slowed down. Voiding and ambulating without difficulty. No BM. Pain is helped by tyl and ibu. Mood is good. going ok but baby is sleepy, she does latch, but hasn't had many long feeds. Plans condoms and vasectomy for contraception. and family available for support. O: BP 123/60 (BP Cuff Location: Right arm, BP Patient Position: Sitting) Temp 36.5 ??C (97.7 ??F)(Temporal) Resp 16 Ht 157.5 cm (62.01) Wt 87.5 kg (193 lb) LMP 04/20/2019 (Exact Date) SpO2 100% Unknown BMI 35.29 kg/m?? Breasts soft, Nipples intact Fundus @ U Scant rubra Lochia Perineum approximated LE WWP A: 24 y.o. yo day 1 s/p with episiotomy and 1st degree laceration repaired Stable with normal involution initiated Blood type O pos Rubella NI P: MMR vaccine prior to discharge. Discussed possibility of discharge this afternoon. They would like to go if head teacher is ok with this. Reviewed discharge teaching - self care, warning signs andpostpartum depression. control plan is condoms and vasectomy. Follow up in office in 2 and 6 weeks. * Jacklyn Dickson RN - 01/31/2020 1026 EST Initial Case Management/Social Work Assessment and Discharge Plan/Readmission Risk Assessment REASON FOR ADMISSION: <principal problem not specified> Patient understands reason for admission: Yes PATIENT CONTACT INFO VERIFIED: Yes PATIENT ADDRESS VERIFIED: Yes LIVING ARRANGEMENTS AND ACCESSIBILITY ISSUES: Living Arrangements: Spouse / significant other What in home social supports are available to the patient? Spouse / significant other, Family member(s) Is 19/06 care available? NA ADVANCED DIRECTIVES, POA &/or COLST IN PLACE: Healthcare Directive: No, patient does not have advance directive for healthcare treatment Information Provided on Healthcare Directives: No Information on Healthcare Directives Requested: No DIRECTIVES FOR FINANCES: Directive For Finances: No TRANSPORTATION: Transportation: Family(pt has an carseat, she has reliable transportation) CULTURAL, TENRIISM and/or LANGUAGE factors affecting health care/discharge planning: Any factors affecting health care/discharge planning?: No Insurance in Place: Yes Medical Insurance: Yes Type of insurance: Medicaid Medicaid Type: Community Referred to patient financial services: No DISCHARGE RISK ASSESSMENT: Total # selected above: Tentative plan to address the risk of re-hospitalization for those at HIGH MODERATE RISK: RAPT TOOL: Patient expects to be discharged to: (pt to d/c to home with ) SBIRT: FUNCTIONAL STATUS: Activities patient requires assistance: None COMMUNITY RESOURCES/SUPPORTS: Primary Care Provider: Zina Monroy PCP Verified: Yes Specialists: None Type of Home Health Services: (pt would like a HH referral with [facility].) DME Provider: Pharmacy: [id number] - [place], [place] - [address] [place] [address] Home Health: Other: (pt declined WIC info) POST HOSPITAL TRANSITION PLAN: Pt to d/c to home with infant, she will f/u with OB, Pedi and HH. JACKLYN DICKSON RN 01/31/2020 10:26 * Jacklyn Dickson RN - 01/31/2020 0905 EST Attempted to see pt in her room on B7, today @ 0845, she was asleep at this time, will plan to see later today. Jacklyn Dickson RN Case Manager [phone] Pager [phone] * Baron Estrada MD - 01/31/2020 0212 EST L&D Progress Note CC: IUP @ 39w0d S: Still experiencing a lot of pain with ctx, now with more rectal pressure. O: BP 132/72 Temp 36.4 ??C (97.5 ??F) (Tympanic) Resp 18 LMP 04/20/2019 (Exact Date) Gen: NAD, lying comfortably in bed. FHT: Baseline 125, mod variability, + accels, - decels; Category 1 tracing [place]: q1-3min, irritable SVE: 9/100/0 A/P: 24 y.o. @ 39w0d in spontaneous labor. Category 1 tracing. -Labor: spontaneous -FWB: intermittent EFM -Pain: s/p anesthesia consult -PPH risk: low -Global: Rh +, GBS - Baron Estrada MD 01/31/2020 2:12 * Baron Estrada MD - 01/31/2020 0121 EST L&D Progress Note CC: IUP @ 39w0d S: Having a lot of pain with ctx. Experiencing back and hip pain. Breathing through contractions. O: BP 132/72 Temp 36.4 ??C (97.5 ??F) (Tympanic) Resp 18 LMP 04/20/2019 (Exact Date) Gen: NAD, lying comfortably in bed. FHT: Baseline 125, mod variability, + accels, - decels; Category 1 tracing [place]: q2-5min, irritable SVE: A/P: 24 y.o. @ 39w0d in spontaneous labor. Category 1 tracing. -Labor: spontaneous -FWB: intermittent EFM -Pain: s/p anesthesia consult -PPH risk: low -Global: Rh +, GBS - Baron Estrada MD 01/31/2020 1:21 * Francisca Dial RN - 01/30/2020 2300 EST 2250: Arrived pt. Pt breathing through ctx. Pt reports feeling ctx become intense and regular 2 hours ago. Reporting ctx q 3 w/ pain in back. +FM, denies LOF, VB. Rh +, GBS -. Pt would like to deliver naturally; open to anesthesia consult. 2300: Dr. Estrada at bedside. 2302: SVE: 2347: Anesthesia at bedside w/consult 2358: Tachysystole noted. PO hydration encouraged. Pt states she hasn't drinken much water today. No VB. 0045: Pt states, I feel like my water might have broken, Mucous discharge seen in bed; Dr. Estrada made aware. Hands and knees. 0100: Fluid from chux, nitrazine- 0104: Dr. Estrada at bedside w/US to confirm position; vertex 0110: Dr. Lili CNM at bedside; encouraging bath, PO hydration 0112: 0125: Pt in tub 0135: Pt standing at side of bed; lunging w/ step stool 0147: Pt on birthing ball 0156: Hands and knees 0207: Goddess position; pt reporting rectal pressure. Dr. Estrada made aware. 0208:Dr. Estrada at bedside 32769: 0 0220:Pt states she feels pushy 0222: Dr. Estrada at bedside.SVE: Ant lip 0230: MIKE Sullivan at bedside. Dr. Estrada at bedside 0237: Hands and knees 0241: Pt stating, I feel like I have to push. Pt encouraged to bear down w/ next ctx by MIKE Sullivan. 0243: SVE: Anterior lip; Dr. Estrada attempting to push back lip. Pt encouraged to breathing through next couple ctx. 0304: Complete 0305: Pushing started 0306: SROM: clear 3:29 epis 0331: female to mothers chest, spont cry at 40 seconds of life. Terminal mec 3:34 NICU team turned away 0340: 1 ml pitocin. Skin to skin w/ mom 0500: Ambulated safely to BR. 0550: Pt transferred safely to B7 via w/c. documented in this encounter H&P Notes * Jennifer Sullivan CNM - 01/30/2020 2321 EST Department of Obstetrics History & Physical Admit Date: 01/30/2020 Chief Complaint Patient presents with ??? Laboring Admission indication: labor/ROM (when presenting 38w6d, 39w0d by the time admission completed) Maternal transport/Outside delivery: No HPI: Ulises Duffy is a 24 y.o. at 38w6d by 5w5d u/s presenting for increasing ctx. She endorses FM, no gush of fluid, no vaginal bleeding. Ctx every few minutes, feeling them as pain in her lower back radiating to her groin with increasing pressure. She is experiencing nausea. This has been complicated by: -Rubella non-imm -unknown gc/chlamydia status -h/o anxiety and depression Review of Systems: Negative except as per HPI Current Complications: Assisted reproduction this : None Preeclampsia prevention: None Testing: Genetic screening: NIPT Dx requiring follow-up: None FOB History: No data recorded Medication Exposure: Significant medication exposure: None Labs Rh + / Antibody screen - / Rubella non-imm / Varicella imm / RPR neg / Gonorrhea unk / Chlamydia unk / Hepatitis B neg / HIV neg / 1hr GTT 109 / 3hr GTT not indicated GBS neg Ultrasound 09/20/19 20 wks WNL female. Posterior placenta 12/16/2019 32w3d 1899 gr 24%?? OB History Para Term AB Living 3 0 0 0 2 0 SAB TAB Ectopic Multiple Live Births 0 2 0 0 0 # Outcome Date GA Lbr Juan Carlos/2nd Weight Sex Delivery Anes PTL Lv 3 Current 2 TAB 2018 10w0d 1 TAB 2017 4w0d Previous Complications: No data recorded Past Medical History Past Surgical History Past Medical History: Diagnosis Date ??? Abnormal Pap smear of cervix ASCUS (?HPV) or 09/2019 ??? Anxiety ??? Depression ??? Depression History reviewed. No pertinent surgical history. Past Gynecological History Social History Normal pap Social History Tobacco Use ??? Smoking status: Never Smoker ??? Smokeless tobacco: Never Used Substance Use Topics ??? Alcohol use: No Frequency: Never reports that she does not use drugs. Medications Allergies No current facility-administered medications on file prior to encounter. Current Outpatient Medications on File Prior to Encounter Medication Sig Dispense Refill ??? acetaminophen (TYLENOL) 500 mg tablet Take 500 mg by mouth every 6 hours as needed for Pain. ??? ondansetron (ZOFRAN-ODT) 4 mg disintegrating tablet Take 1 Tab by mouth every 8 hours as neededfor Nausea. 30 Tab 2 ??? vit calc,iron,folic ( VITAMIN ORAL) Take by mouth. Allergies Allergen Reactions ??? Novocain [Procaine] Nausea And Vomiting Objective: Weights Prepregnancy Weight: 68 kg (149 lb 14.6 oz) Patient Vitals for the past 8 hrs: BP Heart Rate Resp Temp 01/30/20 2315 132/72 74 BPM 18 36.4 ??C (97.5 ??F) General: breathing through ctx, otherwise NAD. Ambulating. Cardiovascular: RRR, no r/m/g Respiratory: CTAB, no increased work of breathing Abdomen: soft, gravid, 7.5# on Aron's Extremities: warm, well perfused FHT: 120 baseline. mod variability, + accels, - decels; Cat 1 tracing. TOCO: q1-5min. SSE: deferred SVE: 0 Assessment/Problems/Plan: Ulises Duffy is a 24 y.o. at 38w6d by 5w5d u/s here in spontaneous labor. Category 1 tracing. Labor: -Admit to L&D. -Labour: will monitor clinically, no plans to augment at this time -FWB: intermittent EFM -Pain: consult to anesthesia, desiring un-medicated ; labor support Global - hemorrhage risk: Low -Rh + -GBS - -Immunizations indicated : Rubella Baron Estrada MD 01/30/2020 23:34 Attestation: I saw and examined the patient with the resident/fellow. I agree with the findings andplan of care documented in the resident's/fellow's note. Jennifer Sullivan CNM 01/31/2020 2:47 documented in this encounter Miscellaneous Notes * Plan of Care - Dianne Jeffers RN - 02/02/2020 1351 EDT Problem: Daily Care Plan Goals Goal: Care Plan Documentation Outcome: Met This Shift Flowsheets (Taken 02/02/2020 0848) Goal This Shift: to be d/c'd Note: D: s/p vag del 2 days ago. Ready for d/c VSS, pp check wnl A: pt completed d/c videos, cert, R: Verbalized understanding of d/c instructions, ready for d/c Problem: Pain: Goal: Pain level will decrease Outcome: Met This Shift * Plan of Care - Catherine Leon RN - 02/02/2020 0621 EDT Problem: Daily Care Plan Goals Goal: Care Plan Documentation Outcome: Met This Shift Flowsheets (Taken 02/02/2020 0621) Area of Focus: Sleep Goal This Shift: cluster care to promote rest Note: Data: Pt is day 2 s/p of first baby, taking po pain meds. Action: PO pain meds PRN. PP Assessment, VS as ordered, oob ad tanja. Cluster nursing care to promotesleep. Response: VSS, pp assessment wnl. Patient rates pain as 0-1/10. Patient sleeping between feedings. Will continue to monitor Problem: Nutritional: Goal: Mother's verbalization of satisfaction/ comfort with will improve Outcome: Met This Shift Problem: Lifecycle: : Goal: Chance of risk for complications during the period will decrease Outcome: Met This Shift * Plan of Care - Prabha Pina RN - 02/01/2020 1847 EST Problem: Pain: Goal: Pain level will decrease Outcome: Met This Shift Problem: Nutritional: Goal: Mother's verbalization of satisfaction/ comfort with will improve Outcome: Ongoing Problem: Daily Care Plan Goals Goal: Care Plan Documentation Flowsheets (Taken 02/01/2020 1843) Area of Focus: Pain/ Comfort Goal This Shift: Tolerable pain level Note: Data: Day #1 s/p , up ad tanja, patient hopeful for d/c today, but baby staying to monitor jaundice. Pain level low and patient only reports uterine cramping with breast feeding. Breast feeding mostly independently. Action: Medicated per MAR. Assist family as needed. Response: Stable PP pt, AVSS. Pain controlled with current interventions, tylenol and motrin requested and given q 4 hours. Patient hopeful for early d/c tomorrow morning. Will continue to assist family as needed. PRABHA PINA RN 02/01/2020 18:44 * Plan of Care - Cisco Brennan RN - 02/01/2020 1343 EST Problem: Daily Care Plan Goals Goal: Care Plan Documentation 02/01/2020 1336 by Mika, Cisco, RN Flowsheets Taken 02/01/2020 1336 Area of Focus: Education Taken 02/01/2020 0830 Goal This Shift: Parents will watch d/c instructions videos and state full understanding of mother and baby care after d/c. Note: Data: Stable 1 day post primip. BF education provided. Action: Parents made aware to put baby STS and to breast every 2-3 hours and to ring for assistanceas needed. Mother aware to either pump or hand express and feed what she gets to baby. Response: Continue to monitor feeds and educate as needed. Recommended to parents to stay another night to work on feeding. CISCO BRENNAN RN 02/01/2020 13:36 02/01/2020 1048 by Cisco Brennan RN Flowsheets (Taken 02/01/2020 1046) Area of Focus: Education * Plan of Care - Catherine Leon RN - 02/01/2020 0612 EST Problem: Daily Care Plan Goals Goal: Care Plan Documentation Outcome: Met This Shift Flowsheets (Taken 02/01/2020 0611) Area of Focus: Other Goal This Shift: cluster care to promote rest Note: Data: Pt is day 1 s/p of first baby, taking po pain meds. Action: PO pain meds PRN. PP Assessment, VS as ordered, oob ad tanja. Cluster nursing care to promotesleep. Response: VSS, pp assessment wnl. Patient rates pain as 0-1/10. Patient sleeping between feedings. Will continue to monitor. Problem: Pain: Goal: Pain level will decrease Outcome: Met This Shift Problem: Nutritional: Goal: Mother's verbalization of satisfaction/ comfort with will improve Outcome: Met This Shift Problem: Lifecycle: : Goal: Chance of risk for complications during the period will decrease Outcome: Met This Shift * Plan of Care - Genevieve Thornton RN - 01/31/2020 1848 EST Problem: Daily Care Plan Goals Goal: Care Plan Documentation Outcome: Ongoing Data: Pt is s/p , day 0. Pt desires to breastfeed infant. Action: Reinforced goal of 8-12 BF attempts with parents in first 24 hours of life. Assistance was offered PRN. Reinforced appropriate positioning for a cradle hold and appropriate latch. Response: Pt was able to latch her infant with minimal assistance and at times independently. Pt isexceeding infant feeding goals at this time. Continue to monitor feedings and assist as needed. GENEVIEVE THORNTON RN 01/31/2020 18:48 Problem: Nutritional: Goal: Mother's verbalization of satisfaction/ comfort with will improve Outcome: Ongoing Problem: Pain: Goal: Pain level will decrease Outcome: Met This Shift Problem: Lifecycle: : Goal: Chance of risk for complications during the period will decrease Outcome: Met This Shift * L&D Delivery Note - Jennifer Sullivan CNM - 01/31/2020 0416 EST Delivery Information Ulisesdoni Duffy is a 24 y.o. at 39w0d delivered by Spontaneous Vaginal Delivery . Carleen Duffy [phone] at Gestational Age: 39w0d, Delivered by Spontaneous Vaginal Delivery , Weighed 3350 g (7 lb 6.2 oz), 8 /10 , Sent to [facility] after delivery. Maternal: Delivery Plan Outcome Planned home ? Not planned External cephalic version attempt indicated? Not indicated Delivery as waterbirth? No REGINA after : Not applicable Delivery Indications Maternal Indications for delivery/comments: Not applicable Indications for delivery/comments: Not applicable Intrapartum Medication Intrapartum preeclampsia: No Intrapartum Mg: No Intrapartum Mg Indication: N/A Labor Labor onset: Spontaneous Cervical ripening/induction agent: N/A Labor augmentation: None Augmentation indication/comments: N/A Sepsis Risk Scores (based on CDC incidence of 0.03/1000 live births) Calculated Risk at Score: Adjusted Score (Well Appearing): Adjusted Score (Equivocal): Adjusted Score (Clinical Illness): Sepsis Risk Factors used in score calculation Gestational Age: w, d Mother's max temp within 12 hours prior to delivery: Length of Rupture of Membranes: Hours Maternal GBS Status: Intrapartum Antibiotics: Other Intrapartum Infection Factors PROM >= 18 Hours: N/A Maternal Fever >= 38 C: N/A Maternal Tachycardia > 100 bpm: N/A Tachycardia > 160 bpm: N/A Uterine Tenderness: N/A Foul Odor of Amniotic Fluid: N/A Intra-Amniotic Infection N/A HIV Status/Treatment: Not indicated Hepatitus B Surface Antigen: Negative Syphilis: Negative Assessment monitoring: Intermittent heart rate characteristics/comments: Cat 1 demise: N/A Anesthesia Labor analgesia: None Delivery anesthesia: None Adjunctive analgesia: Incisional local, Anesthetic complications: None Additional comments: Maternal Delivery Delivery type: Spontaneous Vaginal Delivery Presentation: Vertex Position: VERITO indication: Forceps Attempted: No Vacuum Attempted: No Operative Vaginal Delivery Indication: N/A Station - Initial Application: N/A Details of Shoulder Dystocia (if applicable) Dystocia Present? No Maneuvers Performed (if applicable) Placenta Delivered: 01/31/2020 3:37 Delivery method: Controlled Cord Traction Morphology: Normal Disposition: Refrigerator Cord Details Vessels: 3 Vessels Complications: None Nuchal intervention: Nuchal cord description: Cord around: Number of loops: Gases Sent? No Cord Blood Sent: Stem cell collection (by MD)? No Comments: Lacerations/Episiotomy Lacerations: N/A Periurethral: N/A Additional Lacerations: N/A Episiotomy: None Indication: N/A Repair Suture: 3-0 Vicryl Procedures Additional Procedures: None Hemorrhage (if applicable) hemorrhage: None Blood Loss Mother: Ulises Duffy S #[id number] Start of Mother's Information IO Blood Loss 01/30/20 1531 - 01/31/20 0416 [facility] Encounter 400 Total 400 End of Mother's Information Mother: Ulises Duffy S #[id number] Uterotonics/PPH Procedures: Uterine massage, Oxytocin, Blood Products Transfused: (if applicable) Labor Length Duration of 1st Stage: hours minutes Duration of 2nd Stage: hours minutes Duration of 3rd Stage: hours minutes Duration of Cord Clamp Delay: 240 seconds Precipitous Labor (<3 hours): N/A Prolonged Labor (>20 hours): N/A [place]: Date of : 01/31/2020 Time of : 0331 Sex: female Weight (grams): 3350 g (7 lb 6.2 oz) Length (in): Head circumference (in): Observed anomalies, comments: Meconium Present at Delivery: No (<37 wks): No Late (34-37 wks): No Steroid Course: Not indicated Indication: N/A PPROM Gestational Age: N/A APGARS Totals: 8 /10 /-/-/- Resuscitation Resuscitation: Suctioning Delivery Personnel Delivering Clinician: JENNIFER SULLIVAN Additional Personnel: BARON ESTRADA;FRANCISCA DIAL;JAMAICA STARK;PED NICU TEAM ROM Duration: (Delivered) 25m Induction Duration (if applicable): Labor and Delivery comments: at 39w0d delivered by Spontaneous Vaginal Delivery. She presented on 01/30/2020 with spontaneous. She progressed to complete over the next few hours, and began to push around 0300. At 0325, FHTwas spotty but bradycardia noted. Pt encouraged to push and a small midline episiotomy was cut. NICU team was called for assessment. After a total of 30 minutes of pushing she delivered a healthy vigorous female infant with nuchal hand weighing 3350g to chest with Apgars of 8/10. After delayed cordclamping, briefly moved to warmer for suctioning and returned to chest. Placenta was delivered intact with controlled cord traction. Pt with trickle of blood vaginally and 10U IM pitocin administered with control of bleeding obtained. Small, midline, 1st degree perineal laceration contiguouswith small, sub-centimeter episiotomy was repaired in the usual fashion using 3-0 vicryl. Additional minimal R sided labial tear was noted and not repaired. Total EBL was 400cc. Infant and mother stable when providers exited the room. Jennifer Sullivan CNM was present and with hands on for entirety of delivery and repair. Baron Estrada MD. Family Medicine PGY-1, [phone] 01/31/2020 4:26 Attestation: I saw and examined the patient with the resident/fellow. I was present with hands on for the entire delivery and repair. I agree with the findings and plan of care documented in the resident's/fellow's note. Jennifer Sullivan CNM 02/05/2020 12:25 documented in this encounter Plan of Treatment Upcoming Encounters Date Type Department Care Team (Late st Contact Info) Description 12/11/2024 9:25 EST Hospital Encounter [facility] OR [address] [place] [address] [phone] Celeste Cooper MD [address] [place] [address] 4 [place] [phone] 12/11/2024 9:25 EST - 12/11/2024 11:40 EST Surgery [facility] OR [address] [place] [address] [phone] Celeste Cooper MD [address] [place] [address] 4 [place] [phone] Laparoscopic left ovarian cystectomy [32191 (CPT??)] 12/31/2024 16:15 EST Post-op Visit [facility] - [address] [id number] Jessika Upton MD [address] [place] [address] [phone] 02/06/2025 13:10 EDT Appointment [facility] [address] [phone] 03/05/2025 8:40 EDT Office Visit [facility] Rheumatology & Immunology - [address] [phone] Nikolay Elizabeth MD MPH [address] [place] [address], [address] [place] [phone] Scheduled Procedures Name Priority Associated Diagnoses Date/Ti me LAPAROSCOPY, WITH EXCISION O R FULGURATION OF LESIONS OF OVARY, PELVIC VISCERA, OR PERITONEAL SURFACE Cyst of left ovary 12/11/2024 9:25 EST documented as of this encounter Procedures Procedure Name Priority Date/Time Associated Diagnosis Comments COMPLETE BLOOD COUNT STAT 01/30/2020 23:46 EST BLOOD BANK HOLD STAT 01/30/2020 23:46 EST documented in this encounter Results * BLOOD BANK HOLD (01/30/2020 23:46 EST) Hold BB Spec will exp at 23:59, 3 days from collect date 01/31/2020 1:15 EST [facility] Blood VENOUS BLOOD / Unknown Venipuncture / Unknown 01/30/2020 23:46 EST 01/30/2020 23:54 EST us Baron Estrada MD BLOOD BANK TESTS Edited Res ult - Final [facility]OD [facility] [address] [facility] [place] [address] * (ABNORMAL) COMPLETE BLOOD COUNT (01/30/2020 23:46 EST) WBC 14.20(H) 4.00 - 12.40 K/cmm 01/31/2020 0:13 [facility] RBC 4.27 3.86 - 5.04 M/cmm 01/31/2020 0:13 [facility] Hemoglobin 11.3(L) 11.6 - 15.2 gm/dL 01/31/2020 0:13 [facility] HCT 33.7(L) 34.9 - 44.4 % 01/31/2020 0:13 [facility] MCV 79(L) 81 - 98 fl 01/31/2020 0:13 [facility] MCH 26.5(L) 26.7 - 33.3 pg 01/31/2020 0:13 [facility] MCHC 33.5 32.1 - 35.9 gm/dL 01/31/2020 0:13 [facility] RDW-CV 13.8 <14.7 % 01/31/2020 0:13 [facility] RDW-SD 38.9 <50.4 fl 01/31/2020 0:13 [facility] PLT 334 141 - 377 K/cmm 01/31/2020 0:13 [facility] MPV 11.0 9.5 - 12.7 fl 01/31/2020 0:13 [facility] Blood VENOUS BLOOD / Unknown Venipuncture / Unknown 01/30/2020 23:46 EST 01/30/2020 23:52 EST us Baron Estrada MD HEMATOLOGY & PF4 ORDERABLES Final Result Performing Organization Address City/State/[facility] Co de Phone Number [facility] [address] [place] [address] documented in this encounter Visit Diagnoses Diagnosis , unspecified gestational age state, incidental Cyst of left ovary Other and unspecified ovarian cyst documented in this encounter Admitting Diagnoses Diagnosis state, incidental documented in this encounter Administered Medications Inactive Administered Medications - up to 3 most recent administrations Medication Order MAR Action Action Date Dose Rate Site acetaminophen (TYLENOL) tablet 650 mg 650 mg, oral, EVERY 4 HOURS PRN, Starting on Mon01/31/20 at 0006, Until Mon01/31/20 at 0721, Pain, Post-, Routine Given 01/31/2020 3:52 EST 650 mg acetaminophen (TYLENOL) tablet 650 mg 650 mg, oral, EVERY 4 HOURS PRN, Starting on Mon01/31/20 at 0408, Until Mon02/02/20 at 1754, Pain, Routine, Release Given 02/02/2020 14:43 EDT 650 mg Given 02/02/2020 9:54 EDT 650 mg Given 02/02/2020 5:58 EDT 650 mg docusate sodium (COLACE) capsule 100 mg 100 mg, oral, 2 TIMES DAILY PRN, Starting on Mon01/31/20 at 0407, Until 02/02/20 at 1754, Constipation, Routine, Release Given 02/02/2020 9:54 EDT 100 mg Given 02/01/2020 21:04 EST 100 mg Given 02/01/2020 0:09 EST 100 mg ibuprofen (MOTRIN) tablet 400 mg 400 mg, oral, EVERY 4 HOURS PRN, Starting on Mon01/31/20 at 0006, Until Mon01/31/20 at 0721, Pain, post-, Routine Given 01/31/2020 3:52 EST 400 mg ibuprofen (MOTRIN) tablet 400 mg 400 mg, oral, EVERY 4 HOURS PRN, Starting on Mon01/31/20 at 0408, Until 02/02/20 at 1754, Pain, Routine, Release Given 02/02/2020 14:43 EDT 400 mg Given 02/02/2020 5:58 EDT 400 mg Given 02/02/2020 0:59 EST 400 mg lansinoh HPA lanolin topical, PRN, Starting on Mon01/31/20 at 0407, Until Mon02/02/20 at 1754, Other, breast feeding, Release Given 0 8:59 EST 7 g Given 02/01/2020 0:09 EST 7 g oxytocin (PITOCIN) 10 unit/mL injection 1 dose, Starting on Mon01/31/20 at 0145, Until Mon01/31/20 at 0340 Given 01/31/2020 3:40 EST 10 Units Left Thigh documented in this encounter Discontinued Medications Medication Sig Discontinue Reason Start Date End Da te ondansetron (ZOFRAN-ODT) 4 mg disintegrating tablet Take 1 Tab by mouth every 8 hours as needed for Nausea. 06/14/2019 02/02/2020 acetaminophen (TYLENOL) 500 mg tablet Take 500 mg by mouth every 6 hours as needed for Pain. 02/02/2020 documented as of this encounter Active and Recently Administered Medications Due to Daylight Saving Time, this section may contain times in both EST and EDT. Scheduled Medication Order 01/31/2020 02/01/2020 02/02/2020 multivitamin vit-iron fumarate-FA (STUARTNATAL) 27 mg iron- 1 mg tablet 1 Tab 1 Tablet, oral, DAILY, First dose on Mon01/31/20 at 0900, Until Discontinued, Routine, Release 0900 (Canceled Entry - Provider: Batch Job User Admin - Comment: Automatically canceled at discontinue of medication order) 0900 (Not Given - Provider: Cisco Brennan RN - Reason: Patient/family refused) 1003 (Not Given - Provider: Dianne Jeffers RN - Reason: Patient/family refused) PRN Medication Order 01/31/2020 02/01/2020 02/02/2020 acetaminophen (TYLENOL) tablet 650 mg (CANCELED) 650 mg, oral, EVERY 4 HOURS PRN, Starting on Mon01/31/20 at 0006, Until 01/31/20 at 0721, Pain, Post-, Routine 0352 (Given - Provider: Francisca Dial RN) acetaminophen (TYLENOL) tablet 650 mg 650 mg, oral, EVERY 4 HOURS PRN, Starting on Mon01/31/20 at 0408, Until 02/02/20 at 1754, Pain, Routine, Release 0745 (Given - Provider: Genevieve Thornton RN)1424 (Given - Provider: Genevieve Thornton RN)1832 (Given - Provider: Genevieve Thornton RN) 0009 (Given - Provider: Catherine Leon RN)0411 (Given - Provider: Catherine Leon RN)0859 (Given - Provider: Cisco Brennan RN)1317 (Given - Provider: Cisco Brennan RN)1717 (Given - Provider: Prabha Pina RN)2104 (Given - Provider: Catherine Leon RN) 0058 (Given - Provider: Catherine Leon RN)0558 (Given - Provider: Catherine Leon RN)0954 (Given - Provider: Dianne Jeffers RN)1443 (Given - Provider: Dianne Jeffers RN) calcium carbonate (TUMS) 200 mg calcium (500 mg) per chewable tablet tablet,chewable 2 Tab 2 Tablet, oral, EVERY 2 HOURS PRN, Starting on Mon01/31/20 at 0407, Until 02/02/20 at 1754, Heartburn, Indigestion, Routine, Release docusate sodium (COLACE) capsule 100 mg 100 mg, oral, 2 TIMES DAILY PRN, Starting on Mon01/31/20 at 0407, Until 02/02/20 at 1754, Constipation, Routine, Release 0745 (Given - Provider: Genevieve Thornton RN) 0009 (Given - Provider: Catherine Leon RN)2104 (Given - Provider: Catherine Leon RN) 0954 (Given - Provider: Dianne Jeffers, MYA) ibuprofen (MOTRIN) tablet 400 mg (CANCELED) 400 mg, oral, EVERY 4 HOURS PRN, Starting on Mon01/31/20 at 0006, Until Mon01/31/20 at 0721, Pain, post-, Routine 0352 (Given - Provider: Francisca Dial, MYA) ibuprofen (MOTRIN) tablet 400 mg 400 mg, oral, EVERY 4 HOURS PRN, Starting on Mon01/31/20 at 0408, Until Mon02/02/20 at 1754, Pain, Routine, Release 0745 (Given - Provider: Genevieve Thornton RN)1424 (Given - Provider: Genevieve Thornton RN)1832 (Given - Provider: Genevieve Thornton RN) 0009 (Given - Provider: Catherine Leon RN)0411 (Given - Provider: Catherine Leon RN)0859 (Given - Provider: Cisco Brennan, MYA)1317 (Given - Provider: Cisco Brennan RN)1717 (Given - Provider: Prabha Pina RN)2104 (Given - Provider: Catherine Leon, MYA) 0059 (Given - Provider: Catherine Leon RN)0558 (Given - Provider: Catherine Leon RN)1443 (Given - Provider: Dianne Jeffers, MYA) lansinoh HPA lanolin topical, PRN, Starting on Mon01/31/20 at 0407, Until Mon02/02/20 at 1754, Other, breast feeding, Release 0009 (Given - Provider: Catherine Leon RN)0859 (Given - Provider: Cisco Brennan RN) No Frequency Medication Order 01/31/2020 02/01/2020 02/02/2020 oxytocin (PITOCIN) 10 unit/mL injection (COMPLETED) 1 dose, Starting on Mon01/31/20 at 0145, Until Mon01/31/20 at 0340 0340 (Given - Provider: Francisca Dial, MYA) documented in this encounter Orders Medications Ordered That Sergo ht Not Have Been Administered Count Last Ordered Date First Ordered Date calcium carbonate (TUMS) 200 mg calcium (500 mg) per chewable tablet tablet,chewable 2 Tab 1 01/31/2020 carboprost (HEMABATE) intram uscular injection 250 mcg 1 01/31/2020 lactated ringers (LR) infusion 1 01/31/2020 lidocaine (PF) 10 mg/mL (1 % ) injection 2 mg 1 01/31/2020 lidocaine 1 % injection 1 01/31/2020 methylergonovine (METHERGINE ) injection 200 mcg 1 01/31/2020 miSOPROStoL (CYTOTEC) tablet 200 mcg 1 04/2020 miSOPROStoL (CYTOTEC) tablet 800 mcg 1 04/2020 multivitamin vit-ir on fumarate-FA (STUARTNATAL) 27 mg iron- 1 mg tablet 1 Tab 1 01/31/2020 oxytocin in lactated ringers 30 units/500 ml 2 01/31/2020 ondansetron (ZOFRAN-ODT) dis integrating tablet 4 mg 1 01/30/2020 Diet Count Last Ordered Date First Orde red Date DISCHARGE DIET 1 02/02/2020 Nursing Count Last Ordered Date First Orde red Date ACTIVITY INSTRUCTIONS 3 02/02/2020 BATHING INSTRUCTIONS 2 02/02/2020 Admission Count Last Ordered Date First Orde red Date ADMIT TO INPATIENT 1 01/31/2020 Transfer Count Last Ordered Date First Orde red Date TEACHING SERVICE 4 01/31/2020 01/30/2020 TRANSFER PATIENT 1 01/31/2020 Discharge Count Last Ordered Date First Orde red Date DISCHARGE PATIENT 1 02/02/2020 Legal Count Last Ordered Date First Orde red Date MISCELLANEOUS DISCHARGE INSTRUCTIONS 3 06/2020 documented in this encounter Care Teams Corporate Legal Assistant Relationship Specialty Start Date End Date Zina Monroy DO PCP - General 05/27/19 08/05/20 documented as of this encounter
--- OUTSIDE RECORDS SUMMARY | 2024-12-08 15:31 | XMS_ITS | Encounter Summary ---
Author Organization [facility] Address [address] [place] [address] Care Team Providers Care Escrow Representative Name Role Phone Rik Monroyah Ashli PERKINS Primary Care Provider [phone] Reason for Visit * Reason Comments Cardiac Testing 48 HR HOLTER MONITOR * Cardiology (Routine) - Closed Specialty Diagnoses / Procedures Referred By Seema kapoor Referred To Contact Diagnoses Rapid palpitations Procedures HOLTER MONITOR - 48 Garrison Laura MD Phone: tel: fax: Referral ID Status Reason Start Date Expiration Date Visits Re quested Visits Authorized [id number] Closed 12/26/2019 1 1 Encounter Details Date Type Department Care Team (Latest Contact Info) Description 12/26/2019 9:00 EST Ancillary Procedure [facility] Cardiology - [address] [place], [place] [id number] Rapid palpitations Social History Tobacco Use Types Packs/Day Years [...] Kirill Dunn RN documented in this encounter Plan of Treatment Upcoming Encounters Date Type Department Care Team (Late st Contact Info) Description 12/11/2024 9:25 [facility] Hospital Encounter [facility] OR [address] [place] [address] [id number] Celeste Cooper MD [address] [place] [address] [phone] 12/11/2024 9:25 EST - 12/11/2024 11:40 EST Surgery [facility] OR [address] [place] [address] [phone] Celeste Cooper MD [address] [place] [address] [phone] Laparoscopic left ovarian cystectomy [51818 (CPT??)] 12/31/2024 16:15 EST Post-op Visit [facility] [address] [phone] Jessika Upton MD [address] [place] [address] [phone] 02/06/2025 13:10 EDT Appointment [facility] [address] [phone] 03/05/2025 8:40 EDT Office Visit [facility] Rheumatology & Immunology [address] [phone] Nikolay Elizabeth MD MPH [address] [place] [address], Level [address] [place] [phone] Scheduled Procedures Name Priority Associated Diagnoses Date/Ti me LAPAROSCOPY, WITH EXCISION O R FULGURATION OF LESIONS OF OVARY, PELVIC VISCERA, OR PERITONEAL SURFACE Cyst of left ovary 12/11/2024 9:25 EST documented as of this encounter Procedures Procedure Name Priority Date/Time Associated Diagnosis Comments HOLTER MONITOR - 48 Routine 12/31/2019 15:00 EST Rapid palpitations documented in this encounter Results * HOLTER MONITOR - 48 (12/31/2019 15:00 EST) Anatomical Region Laterality Modality Holter Narrative 01/02/2020 11:21 EST holter duration: 48h Indication: palpitations Baseline rhythm: sinus Atrial Arrhythmia: none Ventricular Arrhythmia: 4 pvc Afib: none Pauses: none Symptoms: diary entry did not correlate to any arrhythmia Summary: ??Normal holter us Garrison Laura MD [facility] Final Result documented in this encounter Visit Diagnoses Diagnosis Rapid palpitations Palpitations Cyst of left ovary Other and unspecified ovarian cyst documented in this encounter Care Teams Escrow Representative Relationship Specialty Start Date End Date Zina Monroy DO PCP - General 05/27/19 08/05/20 documented as of this encounter
--- OUTSIDE RECORDS SUMMARY | 2024-12-08 15:31 | XMS_ITS | Encounter Summary ---
Author Organization [facility] Address [address] [place] [address] Care Team Providers Care Cable Maker Name Role Phone Zina Monroy Primary Care Provider [phone] Encounter Details Date Type Department Care Team (Late st Contact Info) Description 01/09/2020 Documentation Visit [facility] OBGYN Services - [address] [phone] Elva Jha NP [facility] [address] [facility], [address] [place] [phone] Social History Tobacco Use Types Packs/Day Years [...] Date of Assessment Author No 12/22/2019 18:09 EST Kirill Steele, RN * Are you blind or do [...] 12/22/2019 18:09 Kirill Dunn ie, RN * Because of a physical, mental, or emotional condition, do you have difficulty doing errands alone such as visiting a doctor's office or shopping? (15 years old or older) Answer Date of Assessment Author No 12/22/2019 18:09 Kirill Dunn ie, RN documented as of this encounter Mental Status * Because of a physical, mental, or emotional condition, do you have serious difficulty concentrating, remembering, or making decisions? (5 years old or older) Answer Entry Date Author No 12/22/2019 18:09 Kirill Dunn, RN documented in this encounter Progress Notes * Alicia Roche MA - 01/09/2020 1301 EST [facility] [place] [facility] query has been completed per the following requirement(s): Acute Pain Episode. Alicia Roche documented in this encounter Plan of Treatment Upcoming Encounters Date Type Department Care Team (Late st Contact Info) Description 12/11/2024 9:25 EST Hospital Encounter [facility] OR [address] [place] [address] [phone] Celeste Cooper MD [address] [place] [address] [phone] 12/11/2024 9:25 EST - 12/11/2024 11:40 EST Surgery [facility] OR [address] [place] [address] [phone] Celeste Cooper MD [address] [place] [address] [phone] Laparoscopic left ovarian cystectomy [75908 (CPT??)] 12/31/2024 16:15 EST Post-op Visit [facility] [address] [phone] Jessika Upton MD [address] [place] [address] [phone] 02/06/2025 13:10 EDT Appointment [facility] [address] [phone] 03/05/2025 8:40 EDT Office Visit [facility] Rheumatology & Immunology [address] [phone] Nikolay Elizabeth MD [address], [address] [place] [phone] Scheduled Procedures Name Priority Associated Diagnoses Date/Ti me LAPAROSCOPY, WITH EXCISION O R FULGURATION OF LESIONS OF OVARY, PELVIC VISCERA, OR PERITONEAL SURFACE Cyst of left ovary 12/11/2024 9:25 EST documented as of this encounter Visit Diagnoses Not on filedocumented in this encounter Care Teams Cable Maker Relationship Specialty Start Date End Date Zina Monroy DO PCP - General 05/27/19 08/05/20 documented as of this encounter
--- OUTSIDE RECORDS SUMMARY | 2024-12-08 15:31 | XMS_ITS | Encounter Summary ---
Author Organization [facility] Address [address] [place] [address] Care Team Providers Care Converter Supervisor Name Role Phone Zina Monroy Primary Care Provider [phone] Reason for Visit * Reason Onset Date Comments Advice Only 06/04/2020 Encounter Details Date Type Department Care Team (Late st Contact Info) Description 06/04/2020 Telephone [facility] OBGYN Services - [address] [address] Elizabeth Kendrick NP [facility] [address] [facility], [address] [place] [phone] Advice Only Social History Tobacco Use Types Packs/Day Years [...] encounter Miscellaneous Notes * Telephone Encounter - Shanell Samll - 06/04/2020 7136 EDT Pt called in stating she would like to discuss getting her tubes tied in the near future. She stated she has some questions. She can be reached at: [phone] documented in this encounter Plan of Treatment Upcoming Encounters Date Type Department Care Team (Late st Contact Info) Description 12/11/2024 9:25 EST Hospital Encounter [facility] OR [address] [place] [address] [phone] Celeste Cooper MD [address] [place] [address], [address] [place] [phone] 12/11/2024 9:25 EST - 12/11/2024 11:40 EST Surgery [facility] OR [address] [place], [place] [phone] Celeste Cooper MD [address] [place] [address], [address] [place] [phone] Laparoscopic left ovarian cystectomy [57689 (CPT??)] 12/31/2024 16:15 EST Post-op Visit [facility] [address] [phone] Jessika Upton MD [address] [place] [address] [phone] 02/06/2025 13:10 EDT Appointment [facility] [address] [phone] 03/05/2025 8:40 EDT Office Visit [facility] Rheumatology & Immunology [address] [phone] Nikolay Elizabeth MD [address], [address] [place] [phone] Scheduled Procedures Name Priority Associated Diagnoses Date/Ti me LAPAROSCOPY, WITH EXCISION O R FULGURATION OF LESIONS OF OVARY, PELVIC VISCERA, OR PERITONEAL SURFACE Cyst of left ovary 12/11/2024 9:25 EST documented as of this encounter Visit Diagnoses Not on filedocumented in this encounter Care Teams Converter Supervisor Relationship Specialty Start Date End Date Zina Monroy DO PCP - General 05/27/19 08/05/20 documented as of this encounter
--- OUTSIDE RECORDS SUMMARY | 2024-12-08 15:31 | XMS_ITS | Encounter Summary ---
Author Organization [facility] Address [address] [place] [address] Care Team Providers Care Metal Mover Name Role Phone Zina Monroy Primary Care Provider [phone] Encounter Details Date Type Department Care Team (Latest Contact Info) Description 12/22/2019 Travel Social History Tobacco Use Types Packs/Day [...] Date Author No 12/22/2019 18:09 Kirill Dunn ie, RN documented in this encounter Plan of Treatment Upcoming Encounters Date Type Department Care Team (Late st Contact Info) Description 12/11/2024 9:[address] [facility] [place] [address] [place] [address] [phone] Celeste Cooper MD [address] [place] [address] 4 [place] [phone] 12/11/2024 9:25 EST - 12/11/2024 11:[address] [facility] [place] [address] [place] [address] [phone] Celeste Cooper MD [address] [place] [address] [phone] Laparoscopic left ovarian cystectomy [[id number] (CPT??)] 12/31/2024 16:15 EST Post-op Visit [facility] OBGYN Services - [address] [phone] Jessika Upton MD [address] [place] [address] [phone] 02/06/2025 13:10 EDT Appointment [facility] OBGYN Services [address] [phone] 03/05/2025 8:40 EDT Office Visit [facility] Rheumatology & Immunology - [address] [phone] Nikolay Elizabeth MD MPH [address] [place] [address], Level [address] [place] [address] Scheduled Procedures Name Priority Associated Diagnoses Date/Ti me LAPAROSCOPY, WITH EXCISION O R FULGURATION OF LESIONS OF OVARY, PELVIC VISCERA, OR PERITONEAL SURFACE Cyst of left ovary 12/11/2024 9:25 EST documented as of this encounter Visit Diagnoses Not on filedocumented in this encounter Care Teams Metal Mover Relationship Specialty Start Date End Date Zina Monroy DO PCP - General 05/27/19 08/05/20 documented as of this encounter
--- OUTSIDE RECORDS SUMMARY | 2024-12-08 15:31 | XMS_ITS | Encounter Summary ---
Author Organization [facility] Address [address] [place] [address] Care Team Providers Care Beam Sealer Name Role Phone Zina Monroy Primary Care Provider [phone] Reason for Visit * Reason Onset Date Comments Other 12/16/2019 Encounter Details Date Type Department Care Team (Late st Contact Info) Description 12/16/2019 Telephone [facility] OBGYN Services - [address] [address] Kasia Mckenzie, YMA Other Social History Tobacco Use Types Packs/Day [...] encounter Miscellaneous Notes * Telephone Encounter - Kasia Mckenzie RN - 12/16/2019 4707 EST TC from pt with ques regarding recent u/s. Pt states she was not really given any info in u/s. Pt inquiring about EFW and to make sure everything else is normal. Reviewed u/s report and informed pt that report states everything is normal and gave pt EFW. Pt can f/u with more detail at next APV. Pt verbalized understanding of instructions and denies questions. No additional needs at this time. documented in this encounter Plan of Treatment Upcoming Encounters Date Type Department Care Team (Late st Contact Info) Description 12/11/2024 9:25 EST Hospital Encounter [facility] OR [address] [place] [address] [phone] Celeste Cooper MD [address] [place] [address] [phone] 12/11/2024 9:25 EST - 12/11/2024 11:40 EST Surgery [facility] OR [address] [place] [address] [phone] Celeste Cooper MD [address] [place] [address] [phone] Laparoscopic left ovarian cystectomy [[id number] (CPT??)] 12/31/2024 16:15 EST Post-op Visit [facility] OBGYN Services - [address] [phone] Jessika Upton MD [address] [place] [address] [phone] 02/06/2025 13:10 EDT Appointment [facility] OBGYN Services - [address] [address] 03/05/2025 8:40 EDT Office Visit [facility] Rheumatology & Immunology - [address] [address] Nikolay Elizabeth MD MPH 111 [facility], Level [address] [place] [address] Scheduled Procedures Name Priority Associated Diagnoses Date/Ti me LAPAROSCOPY, WITH EXCISION O R FULGURATION OF LESIONS OF OVARY, PELVIC VISCERA, OR PERITONEAL SURFACE Cyst of left ovary 12/11/2024 9:25 EST documented as of this encounter Visit Diagnoses Not on filedocumented in this encounter Care Teams Beam Sealer Relationship Specialty Start Date End Date Zina Monroy DO PCP - General 05/27/19 08/05/20 documented as of this encounter
--- OUTSIDE RECORDS SUMMARY | 2024-12-08 15:31 | XMS_ITS | Encounter Summary ---
Author Organization [facility] Address [address] [place] [address] Care Team Providers Care Manager Wellness Name Role Phone Zina Monroy Primary Care Provider [phone] Encounter Details Date Type Department Care Team (Latest Contact Info) Description 06/10/2020 Travel Social History Tobacco Use Types Packs/Day [...] 10:26 EDT documented as of this encounter Functional [...] Description 12/11/2024 9:25 EST Hospital Encounter [facility] OR [address] [place] [address] [phone] Celeste Cooper MD [address] [place] [phone] 12/11/2024 9:25 EST - 12/11/2024 11:40 EST Surgery [facility] OR [address] [place] [address] [phone] Celeste Cooper MD [address] [place] [address] 4 [place] [phone] Laparoscopic left ovarian cystectomy [[id number] (CPT??)] 12/31/2024 16:15 EST Post-op Visit [facility] OBGYN Services - [address] [phone] Jessika Upton MD [address] [place] [address] [phone] 02/06/2025 13:10 EDT Appointment [facility] OBGYN Services - [address] [address] 03/05/2025 8:40 EDT Office Visit [facility] Rheumatology & Immunology [address] [phone] Nikolay Elizabeth MD [address] [place] [phone] Scheduled Procedures Name Priority Associated Diagnoses Date/Ti me LAPAROSCOPY, WITH EXCISION O R FULGURATION OF LESIONS OF OVARY, PELVIC VISCERA, OR PERITONEAL SURFACE Cyst of left ovary 12/11/2024 9:25 EST documented as of this encounter Visit Diagnoses Not on filedocumented in this encounter Care Teams Manager Wellness Relationship Specialty Start Date End Date Zina Monroy DO PCP - General 05/27/19 08/05/20 documented as of this encounter
--- OUTSIDE RECORDS SUMMARY | 2024-12-08 15:31 | XMS_ITS | Encounter Summary ---
Author Organization [facility] Address [address] [place] [address] Care Team Providers Care Cement Railroad Car Loader Name Role Phone Abbot Zina Ashli PERKINS Primary Care Provider [phone] Reason for Referral * Cardiology (Routine) - Closed Specialty Diagnoses / Procedures Referred By Seema t Referred To Contact Diagnoses Rapid palpitations Procedures HOLTER MONITOR - 48 Garrison Laura MD Phone: tel: fax: Referral ID Status Reason Start Date Expiration Date Visits Re quested Visits Authorized [id number] Closed 12/26/2019 1 1 Reason for Visit * Reason Comments Arrhythmia New patient visit in termittent palpitations, sob, dizziness in preg. * Consult (3 - 10 Business Days) - Closed Specialty Diagnoses / Procedures Referred By Seema kapoor Referred To Contact Cardiology Diagnoses Supervision of other normal Neena Pat MD Phone: tel: [facility] Cardiology [place] [address] Phone: tel: fax: Referral ID Status Reason Start Date Expiration Date V isits Requested Visits Authorized [id number] Closed Specialty Services Required 12/22/2019 1 1 Encounter Details Date Type Department Care Team (Late st Contact Info) Description 12/26/2019 8:15 EST Office Visit [facility] Cardiology - [address] [place], [place] [phone] Garrison Laura MD [address] [place] [address] Rapid palpitations (Primary Dx) Social History Tobacco Use Types [...] Sign Reading Time Taken Comments Blood Pressure 106/70 12/26/2019 0815 EST Pulse 96 12/26/2019 0815 EST Temperature - - Respiratory Rate - - Oxygen Saturation 99% 12/26/2019 0815 EST Inhaled Oxygen Concentration - - Weight 84.4 kg (186 lb) 12/26/2019 0815 EST Height 157.5 cm (5' 2.01) 12/26/2019 0815 EST Body Mass Index 34.01 12/26/2019 0815 EST documented in this encounter Functional Status [...] Kirill Dunn RN documented in this encounter Progress Notes * Driss Kaplan MD - 12/26/2019 0815 EST Cardiology Ambulatory Progress Note Date of Service: 12/26/2019 PCP: Zina Monroy CC: Arrhythmia (New patient visit intermittent palpitations, sob, dizziness in preg.) SUBJECTIVE In summary, [place] Mikayla Duffy is a 24 y.o. with a history of palpitations with prior work-up suggestive of sinus tachycardia. She is currently a @ 33w6d. She presented to labor and delivery with palpitations and chest pressure on 12/22/19. ECG was unchanged. The patient was referred for urgent visit with cardiology. The patient describes a couple weeks of episodes. They occur 2-4x per day. They last 15-20 minutes and can occur at rest. She notes sudden onset of rapid palpitations, chest discomfort, SOB, and hot flashes. Episodes resolve with time during which she lies down or sits. Episodes occur without obvious provocation or trigger. Previously her tachycardias were all related to exertion. The patient notes some mild leg swelling at the end of the day that is unchanged and has had more trouble sleeping. The patient previously played soccer without problems. No caffeine or soda or recreational drugs. Does light sedentary work during . Medications: Reviewed. vitamins and tylenol. OBJECTIVE Blood pressure 106/70, pulse 96, height 157.5 cm (62.01), weight 84.4 kg (186 lb), last menstrual period 04/20/2019, SpO2 99 %. Body mass index is 34.01 kg/m??. Gen: NAD Neck: JVP wnl CV: RRR no murmurs Resp: CTAB Legs: no leg edema Skin: warm, dry Neuro: awake, alert STUDIES: No new . Prior holter with probable sinus tach. Reviewed ECG. Shows likely sinus tach withnon-specific ST-T wave changes (mostly T wave flattening). ASSESSMENT In summary, Ulises Duffy is a 24 y.o. with a history of palpitations with prior work-up suggestive of sinus tachycardia. She is currently a @ 33w6d. She presented to labor and delivery with palpitations and chest pressure on 12/22/19. ECG likely shows sinus rhythm. Hopefully we are seeing more sinus tachycardia like prior now brought on by stress of but would want torule out arrhythmia given onset now not related to exercise will get a 48 hour Holter monitor. PLAN 48 hour holter Diagnoses and all orders for this visit: Rapid palpitations - HOLTER MONITOR - 48 D[address] and seen with Dr. Keya Kaplan MD Cardiac Electrophysiology Fellow 12/26/2019 8:48 Attestation statement: Supervising Physician. I saw and examined Ms. Duffy with Dr. Kaplan. Agreewith the history, physical and assessment plans as outlined above. documented in this encounter Plan of Treatment Upcoming Encounters Date Type Department Care Team (Late st Contact Info) Description 12/11/2024 9:[address] [facility] OR [address] [place] [address] [phone] Celeste Cooper MD [address] [place] [address] 4 [place] [phone] 12/11/2024 9:25 EST - 12/11/2024 11:[address] [facility] OR [address] [place] [address] [phone] Celeste Cooper MD [address] [place] [address], [facility] 4 [place] [phone] Laparoscopic left ovarian cystectomy [[id number] (CPT??)] 12/31/2024 16:15 EST Post-op Visit [facility] OBGYN Services [address] [phone] Jessika Upotn MD [address] [place] [address] [phone] 02/06/2025 13:10 EDT Appointment [facility] OBGYN Services [address] [phone] 03/05/2025 8:40 EDT Office Visit [facility] Rheumatology & Immunology [address] [phone] Nikolay Elizabeth MD MPH [address] [place] [address], [address] [place] [address] Scheduled Procedures Name Priority Associated Diagnoses Date/Ti me LAPAROSCOPY, WITH EXCISION O R FULGURATION OF LESIONS OF OVARY, PELVIC VISCERA, OR PERITONEAL SURFACE Cyst of left ovary 12/11/2024 9:25 EST documented as of this encounter Results * HOLTER MONITOR - [...] in this encounter Visit Diagnoses Diagnosis Rapid palpitations- Primary Palpitations Rapid palpitations Palpitations Cyst of left ovary Other and unspecified ovarian cyst documented in this encounter Care Teams Cement Railroad Car Loader Relationship Specialty Start Date End Date Zina Monroy DO PCP - General 05/27/19 08/05/20 documented as of this encounter
--- OUTSIDE RECORDS SUMMARY | 2024-12-08 15:31 | XMS_ITS | Encounter Summary ---
Author Organization [facility] Address [address] [place] [address] Care Team Providers Care Brake Repairer Hydraulic Name Role Phone Zina Monroy Primary Care Provider [phone] Reason for Visit * Reason Onset Date Comments Patient Outreach 12/27/2019 Encounter Details Date Type Department Care Team (Late st Contact Info) Description 12/27/2019 Telephone [facility] Cardiology - [address] [place] [address] Garrison Laura MD [address] [place] [address] [address] [place] [address] Patient Outreach Social History Tobacco Use Types Packs/Day Years [...] Date of Assessment Author No 12/22/2019 18:09 Kiirll Dunn, RN * Do you have difficulty [...] Kirill Dunn RN documented in this encounter Miscellaneous Notes * Telephone Encounter - Scarlett Puga RN - 12/27/2019 1031 EST Called patient back. She says that the areas where the stickers are, are swelling and red and itchy. Advised patient to take them off and wash with soap and water really well, apply hydrocortisone cream if continues to itch and recommended benadryl if needed. Advised if throat started feeling tightor unable to breathe well, then she should go to the ER immediately. Patient says she is sensitive to adhesives so this is most likely a topical reaction. She will return the holter monitor. She has worn for 24 hours. Will update provider. Patient verbalized an understanding. No learning barriers identified. SCARLETT PUGA RN * Telephone Encounter - Ivana Villa - 12/27/2019 0937 EST Reason for Call: Patient Outreach Summary/Symptoms: Patient has been wearing a holter monitor for 24 hours, and is having a reaction to the sticky pads. Wondering if it is okay to take it off at this point. Please call back to advise. Ivana iVlla 12/27/2019 9:37 documented in this encounter Plan of Treatment Upcoming Encounters Date Type Department Care Team (Late st Contact Info) Description 12/11/2024 9:25 EST Hospital Encounter [facility] OR [address] [place] [address] [phone] Celeste Cooper MD [address] [place] [address] [phone] 12/11/2024 9:25 EST - 12/11/2024 11:40 EST Surgery [facility] OR [address] [place] [address] [phone] Celeste Cooper MD [address] [place] [address] [phone] Laparoscopic left ovarian cystectomy [[id number] (CPT??)] 12/31/2024 16:15 EST Post-op Visit [facility] OBGYN Services [address] [phone] Jessika Upton MD [address] [place] [address] [phone] 02/06/2025 13:10 EDT Appointment [facility] OBGYN Services [address] [phone] 03/05/2025 8:40 EDT Office Visit [facility] Rheumatology & Immunology [address] [phone] Nikolay Elizabeth MD MPH 111 [facility], Level [address] [place] [address] Scheduled Procedures Name Priority Associated Diagnoses Date/Ti me LAPAROSCOPY, WITH EXCISION O R FULGURATION OF LESIONS OF OVARY, PELVIC VISCERA, OR PERITONEAL SURFACE Cyst of left ovary 12/11/2024 9:25 EST documented as of this encounter Visit Diagnoses Not on filedocumented in this encounter Care Teams Brake Repairer Hydraulic Relationship Specialty Start Date End Date Zina Monroy DO PCP - General 05/27/19 08/05/20 documented as of this encounter
--- OUTSIDE RECORDS SUMMARY | 2024-12-08 15:31 | XMS_ITS | Encounter Summary ---
Author Organization [facility] Address [address] [place] [address] Care Team Providers Care Automotive Technology Instructor Name Role Phone Zina Monroy Primary Care Provider [phone] Reason for Visit * Reason Onset Date Comments Pre-visit Orders 01/09/2020 Encounter Details Date Type Department Care Team (Late st Contact Info) Description 01/09/2020 Orders Only [facility] OBGYN Services - [address] 078011 Elva Jha NP [address], [facility] 4 [place] [address] Encounter for supervision of other normal in third trimester (Primary Dx) Social History [...] Kirill Dunn, RN documented in this encounter Plan of Treatment Upcoming Encounters Date Type Department Care Team (Late st Contact Info) Description 12/11/2024 9:25 EST Hospital Encounter [facility] OR [address] [place] [address] [phone] Celeste Cooper MD [address] [place] [address] [phone] 12/11/2024 9:25 EST - 12/11/2024 11:40 EST Surgery [facility] OR [address] [place] [address] [phone] Celeste Cooper MD [address] [place] [address] [phone] Laparoscopic left ovarian cystectomy [[id number] (CPT??)] 12/31/2024 16:15 EST Post-op Visit [facility] OBGYN Services - [address] [phone] Jessika Upton MD [address] [place] [address] [phone] 02/06/2025 13:10 EDT Appointment [facility] OBGYN Services - [address] [phone] 03/05/2025 8:40 EDT Office Visit [facility] Rheumatology & Immunology - [address] [phone] Nikolay Elizabeth MD MPH [address] [place] [address], Level [address] [place] [phone] Scheduled Procedures Name Priority Associated Diagnoses Date/Ti me LAPAROSCOPY, WITH EXCISION O R FULGURATION OF LESIONS OF OVARY, PELVIC VISCERA, OR PERITONEAL SURFACE Cyst of left ovary 12/11/2024 9:25 EST documented as of this encounter Results * GROUP B STREP PCR (01/13/2020 13:54 EST) Group B Strep PCR Negative Negative 01/15/2020 13:45 EST [facility] Swab DOUCHE WITH RECTAL AND VAGINAL FITTINGS / Unknown Swab / Unknown 01/13/2020 13:54 EST 01/13/2020 14:00 EST us Elva Jha NP CNM MICROBIOLOGY - GENERAL ORDERABLES Final Result [facility] [address] [place] [address] documented in this encounter Visit Diagnoses Diagnosis Encounter for supervision of other normal in third trimester- Primary Cyst of left ovary Other and unspecified ovarian cyst documented in this encounter Care Teams Automotive Technology Instructor Relationship Specialty Start Date End Date Zina Monroy DO PCP - General 05/27/19 08/05/20 documented as of this encounter
--- OUTSIDE RECORDS SUMMARY | 2024-12-08 15:31 | XMS_ITS | Encounter Summary ---
Author Organization [facility] Address [address] [place] [address] Care Team Providers Care Extension Service Agent Name Role Phone Zina Monroy Primary Care Provider [phone] Encounter Details Date Type Department Care Team (Latest Contact Info) Description 01/30/2020 Travel Social History Tobacco Use Types Packs/Day [...] Info) Description 12/11/2024 9:25 EST Hospital Encounter [facility] OR [address] [place] [address] [phone] Celeste Cooper MD [address] [place] [address] 4 [place] [phone] 12/11/2024 9:25 EST - 12/11/2024 11:40 EST Surgery [facility] OR [address] [place] [address] [id number] Celeste Cooper MD [address] [place] [address] [phone] Laparoscopic left ovarian cystectomy [[id number] (CPT??)] 12/31/2024 16:15 EST Post-op Visit [facility] OBGYN Services - [address] [phone] Jessika Upton MD [address] [place] [address] [phone] 02/06/2025 13:10 EDT Appointment [facility] OBGYN Services [address] [phone] 03/05/2025 8:40 EDT Office Visit [facility] Rheumatology & Immunology - [address] 815161 Nikolay Elizabeth MD MPH [address] [place] [address], Level [address] [place] [phone] Scheduled Procedures Name Priority Associated Diagnoses Date/Ti me LAPAROSCOPY, WITH EXCISION O R FULGURATION OF LESIONS OF OVARY, PELVIC VISCERA, OR PERITONEAL SURFACE Cyst of left ovary 12/11/2024 9:25 EST documented as of this encounter Visit Diagnoses Not on filedocumented in this encounter Care Teams Extension Service Agent Relationship Specialty Start Date End Date Zina Monroy DO PCP - General 05/27/19 08/05/20 documented as of this encounter
--- OUTSIDE RECORDS SUMMARY | 2024-12-08 15:31 | XMS_ITS | Encounter Summary ---
Author Organization [facility] Address [address] [place] [address] Care Team Providers Care Solid Surface Fabricator Name Role Phone Zina Monroy Primary Care Provider [phone] Reason for Visit * Reason Onset Date Comments URI 01/15/2020 Encounter Details Date Type Department Care Team (Late st Contact Info) Description 01/15/2020 Telephone [facility] OBGYN Services - [address] [address] Kasia Mckenzie RN URI Social History Tobacco Use Types Packs/Day Years [...] encounter Miscellaneous Notes * Telephone Encounter - Ksaia Mckenzie RN - 01/15/2020 1027 EST Sore throat, congestion, cough, sneezing s/s that started yesterday. Denies: fever, SOB, difficultybreathing. +FM Pt calling for recommendations for cold medications during . Advised she can take the following: Cough: -Dextromethorphan is a cough supressant: Robitussin-DM -Guaifenesin is an expectorant that looses chest secretions: robitussin-plain -these meds are often combined -Cough drops particularly those that contain Pectin Congestion: -vicks -saline nasal spray -neti pot - use with distilled water Pain Relief and/or Fever: -Acetaminophen: Tylenol (limit to no more than six doses of regular strength and four doses of extra strength in 24 hours) Increase fluids, rest If URI symptoms persist or worsen, pt can f/u with PCP documented in this encounter Plan of Treatment Upcoming Encounters Date Type Department Care Team (Late st Contact Info) Description 12/11/2024 9:25 EST Hospital Encounter [facility] OR [address] [place] [address] [phone] Celeste Cooper MD [address] [place] [address] 4 [place] [phone] 12/11/2024 9:25 EST - 12/11/2024 11:40 EST Surgery [facility] OR [address] [place] [address] [phone] Celeste Cooper MD [address] [place] [address] 4 [place] [phone] Laparoscopic left ovarian cystectomy [[id number] (CPT??)] 12/31/2024 16:15 EST Post-op Visit [facility] OBGYN Services - [address] [phone] Jessika Upton MD [address] [place] [address] [phone] 02/06/2025 13:10 EDT Appointment [facility] OBGYN Services - [address] [phone] 03/05/2025 8:40 EDT Office Visit [facility] Rheumatology & Immunology - [address] [phone] Nikolay Elizabeth MD MPH [address] [place] [address], [facility] 5 [place] [phone] Scheduled Procedures Name Priority Associated Diagnoses Date/Ti me LAPAROSCOPY, WITH EXCISION O R FULGURATION OF LESIONS OF OVARY, PELVIC VISCERA, OR PERITONEAL SURFACE Cyst of left ovary 12/11/2024 9:25 EST documented as of this encounter Visit Diagnoses Not on filedocumented in this encounter Care Teams Solid Surface Fabricator Relationship Specialty Start Date End Date Zina Monroy DO PCP - General 05/27/19 08/05/20 documented as of this encounter
--- OUTSIDE RECORDS SUMMARY | 2024-12-08 15:31 | XMS_ITS | Encounter Summary ---
Author Organization [facility] Address [address] [place] [address] Care Team Providers Care Soil Science Teacher Name Role Phone Zina Monroy Primary Care Provider [phone] Reason for Visit * Reason Onset Date Comments Results 01/03/2020 Encounter Details Date Type Department Care Team (Late st Contact Info) Description 01/03/2020 Telephone [facility] Cardiology - [address] [place], [place] [phone] Scarlett Puga RN Results Social History Tobacco Use Types Packs/Day Years [...] Telephone Encounter - Scarlett Puga RN - 01/03/2020 1123 EST Called and LM for patient that holter monitor was normal. ? If she needed another appt, so will have scheduling reach out to her. SCARLETT PUGA RN * Telephone Encounter - Scarlett Puga RN - 01/03/2020 1122 EST ----- Message from Garrison Laura MD sent at 01/03/2020 8:43 EST ----- Scarlett, Please let Ms. Duffy know that her holter is normal. No arrhythmias noted. ALEXI Patricio ----- Message ----- From: Jozef Rasmussen MD Sent: 01/02/2020 11:21 EST To: Garrison Laura MD documented in this encounter Plan of Treatment Upcoming Encounters Date Type Department Care Team (Late st Contact Info) Description 12/11/2024 9:25 EST Hospital Encounter [facility] OR [address] [place] [phone] Celeste Cooper MD [address] [place] [address], [facility] [address] [place] [phone] 12/11/2024 9:25 EST - 12/11/2024 11:40 EST Surgery [facility] OR [address] [place] [address] [phone] Celeste Cooper MD [address] [place] [address], [facility] [address] [place] [phone] Laparoscopic left ovarian cystectomy [06532 (CPT??)] 12/31/2024 16:15 EST Post-op Visit [facility] OBGYN Services [address] [phone] Jessika Uptno MD [address] [place] [phone] 02/06/2025 13:10 EDT Appointment [facility] OBGYN Services [address] [phone] 03/05/2025 8:40 EDT Office Visit [facility] Rheumatology & Immunology [address] [phone] Nikolay Elizabeth MD MPH [address] [place] [address], [facility] [address] [place] [phone] Scheduled Procedures Name Priority Associated Diagnoses Date/Ti me LAPAROSCOPY, WITH EXCISION O R FULGURATION OF LESIONS OF OVARY, PELVIC VISCERA, OR PERITONEAL SURFACE Cyst of left ovary 12/11/2024 9:25 EST documented as of this encounter Visit Diagnoses Not on filedocumented in this encounter Care Teams Soil Science Teacher Relationship Specialty Start Date End Date Zina Monroy DO PCP - General 7/1/19 9/9/20 documented as of this encounter
--- OUTSIDE RECORDS SUMMARY | 2024-12-08 15:31 | XMS_ITS | Encounter Summary ---
Author Organization [facility] Address [address] [place] [address] Care Team Providers Care Diesel Locomotive Firer/Fireman Name Role Phone Rik Monroyah Ashli PERKINS Primary Care Provider [phone] Reason for Referral * LEAD MINER (Routine) - Specialty Report Received Specialty Diagnoses / Procedures Referred By Seema kapoor Referred To Contact Diagnoses Uterine size date discrepancy , third trimester Procedures US OB FOLLOWUP Elizabeth Kendrick NP CNM Phone: tel: fax: Referral ID Status Reason Start Date Expiration Date V isits Requested Visits Authorized [id number] Specialty Report Received 12/02/2019 1 1 Reason for Visit * Reason Comments Routine Visit Encounter Details Date Type Department Care Team (Late st Contact Info) Description 12/02/2019 15:00 EST Routine [facility] OBGYN Services - [address] [phone] Elizabeth Kendrick NP CNM 111 [facility], [facility], Level 4 [place] [phone] GA: 30w3d Social History Tobacco Use Types Packs/Day Years [...] Sign Reading Time Taken Comments Blood Pressure 126/62 12/02/2019 1455 EST Pulse - - Temperature - - Respiratory Rate - - Oxygen Saturation - - Inhaled Oxygen Concentration - - Weight 82.9 kg (182 lb 12.8 oz) 12/02/2019 1455 EST Height - - Body Mass Index 33.43 11/18/2019 1501 EST documented in this encounter Functional Status * Because of [...] 02/15/2018 14:07 EDT documented in this encounter Progress Notes * Elizabeth Kendrick CNM - 12/02/2019 1500 EST S: [facility] is here today for a visit at 30w3d. 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 + FM. O: Vitals: BP: 126/62 Weight : 82.9 kg (182 lb 12.8 oz) Fundal Height (cm): 36 cm Heart Rate: 148 Movement: Present Presentation: Vertex A: 24 y.o. at 30w3d IUP O pos Chronic low back pain Rubella NI S>D P: TDaP given Follow up in 2 wks for apv and EFW US documented in this encounter Plan of Treatment Upcoming Encounters Date Type Department Care Team (Late st Contact Info) Description 12/11/2024 9:25 EST Hospital Encounter [facility] OR [address] [place] [address] [phone] Celeste Cooper MD [address] [place] [address] 4 [place] [phone] 12/11/2024 9:25 EST - 12/11/2024 11:40 EST Surgery [facility] OR [address] [place] [address] [phone] Celeste Cooper MD [address] [place] [phone] Laparoscopic left ovarian cystectomy [49752 (CPT??)] 12/31/2024 16:15 EST Post-op Visit [facility] OBGYN Services - [address] [phone] Jessika Upton MD [address] [place] [phone] 02/06/2025 13:10 EDT Appointment [facility] OBGYN Services [address] [phone] 03/05/2025 8:40 EDT Office Visit [facility] Rheumatology & Immunology - [address] [phone] Nikolay Elizabeth MD MPH [address] [place] [address] 5 [place] [phone] Scheduled Procedures Name Priority Associated Diagnoses Date/Ti me LAPAROSCOPY, WITH EXCISION O R FULGURATION OF LESIONS OF OVARY, PELVIC VISCERA, OR PERITONEAL SURFACE Cyst of left ovary 12/11/2024 9:25 EST documented as of this encounter Results * US OB FOLLOWUP [...] 32w 4d Liu EFW ?1,899 g 24% Krishnan Calculated by: Hadlock (EGN-IM-TA-FL) EFW (lb) ?? 4 lb EFW (oz) ?? 3 oz Cephalic index 0.76 ?14% Nicolaides HC / AC ?1.00 FL / BPD ?? 0.81 FL / AC ?0.22 MVP ?4.6 cm ROLANDO ?13.6 cm FHR ?135 bpm Head / Face / Neck Hogshead Hooper 6.7 mm Method ======== Transabdominal ultrasound examination, Voluson E10. View: Sufficient. Impression [id number] Follow-up obstetrical ultrasound This is a alan [...] 1,899 g 24% Krishnan Calculated by: Hadlock (BUV-OQ-KO-FL) EFW (lb) 4 lb EFW (oz) 3 oz Cephalic index 0.76 14% Nicolaides HC / AC 1.00 FL / BPD 0.81 FL / AC 0.22 MVP 4.6 cm ROLANDO 13.6 cm FHR 135 bpm Head / Face / Neck Hogshead Hooper 6.7 mm Method ======== Transabdominal ultrasound examination, Voluson E10. View: Sufficient. Impression [id number] Follow-up obstetrical ultrasound This is a alan gestation. biometry is consistent with prior dating. Except where noted above, the anatomy was not reviewed in detail asthis is a follow-up study and the anatomy was previously assessed. Normal fluid and movement are noted. Follow-up Follow-up as clinically indicated. DATE OF SERVICE: 12/16/2019 Elizabeth Kendrick ELECTRON MICROPROBE OPERATOR CNM IMG OB ORDERABLES Юлия l Result documented in this encounter Visit Diagnoses Diagnosis Uterine size date discrepancy , third trimester- Primary Need for ddmlofwibd-cmtrnhi-bfhmnyiro (Tdap) vaccine Need for prophylactic vaccination with combined hvavsepqaw-vvrdnqp-pzabgghbe (DTP) vaccine Uterine size date discrepancy , third trimester Cyst of left ovary Other and unspecified ovarian cyst documented in this encounter Orders Immunization/Injection Count Last Ordered Date First Ordered Date TDAP VACCINE =>7YO IM 1 12/02/2019 documented in this encounter Care Teams Diesel Locomotive Firer/Fireman Relationship Specialty Start Date End Date Zina Monroy DO PCP - General 05/27/19 08/05/20 documented as of this encounter
--- OUTSIDE RECORDS SUMMARY | 2024-12-08 15:31 | XMS_ITS | Encounter Summary ---
Author Organization [facility] Address [address] [place] [address] Care Team Providers Care Employment Service Specialist Name Role Phone Zina Monroy DO Primary Care Provider [phone] Reason for Visit * Reason Onset Date Comments COVID-19 06/11/2020 Encounter Details Date Type Department Care Team (Late st Contact Info) Description 06/11/2020 Orders Only [facility] OBGYN Services - [address] [address] Lizy Alicea, MYA Sterilization (Primary Dx) Social History Tobacco Use Types [...] Progress Notes * Lizy Alicea RN - 06/11/2020 1224 EDT COVID screening ordered for pt having surgery 08/[address] Edge. documented in this encounter Plan of Treatment Upcoming Encounters Date Type Department Care Team (Late st Contact Info) Description 12/11/2024 9:25 [facility] Hospital Encounter [facility] OR [address] [place] [address] [phone] Celeste Cooper MD [address] [place] [address], [facility], Level [address] [place] [phone] 12/11/2024 9:25 EST - 12/11/2024 11:40 EST Surgery [facility] OR [address] [place] [address] [phone] Celeste Cooper MD [facility], Level [address] [place] [phone] Laparoscopic left ovarian cystectomy [[id number] (CPT??)] 12/31/2024 16:15 EST Post-op Visit [facility] OBGYN Services - [address] [phone] Jessika Upton MD [address] [place] [phone] 02/06/2025 13:10 EDT Appointment [facility] OBGYN Services [address] [phone] 03/05/2025 8:40 EDT Office Visit [facility] Rheumatology & Immunology - [address] [phone] Nikolay Elizabeth MD MPH [address] [place] [address], Level [address] [place] [phone] Scheduled Procedures Name Priority Associated Diagnoses Date/Ti me LAPAROSCOPY, WITH EXCISION O R FULGURATION OF LESIONS OF OVARY, PELVIC VISCERA, OR PERITONEAL SURFACE Cyst of left ovary 12/11/2024 9:25 EST documented as of this encounter Visit Diagnoses Diagnosis Sterilization- Primary Cyst of left ovary Other and unspecified ovarian cyst documented in this encounter Care Teams Employment Service Specialist Relationship Specialty Start Date End Date Zina Monroy DO PCP - General 05/27/19 08/05/20 documented as of this encounter
--- OUTSIDE RECORDS SUMMARY | 2024-12-08 15:31 | XMS_ITS | Encounter Summary ---
Author Organization [facility] Address [address] [place] [address] Care Team Providers Care Grocery Manager Name Role Phone Zina Monroy Primary Care Provider [phone] Reason for Visit * Reason Onset Date Comments Appointment Related 03/16/2020 Encounter Details Date Type Department Care Team (Late st Contact Info) Description 03/16/2020 Telephone [facility] OBGYN Services - [address] [address] Elizabeth Kendrick NP [facility] 111 [facility], Level [address] [place] [address] Appointment Related Social History Tobacco Use Types Packs/Day Years [...] encounter Miscellaneous Notes * Telephone Encounter - Rosalinda David - 03/16/2020 0844 EDT Called and left message for patient about missed telephone appointment from 8:15am this morning with Elizabeth Kendrick. Let patient know she can call us @ [phone] to reschedule 6 week visit. Rosalinda David 03/16/2020 8:44 documented in this encounter Plan of Treatment Upcoming Encounters Date Type Department Care Team (Late st Contact Info) Description 12/11/2024 9:25 EST Hospital Encounter [facility] OR [address] [place] [address] Celeste Cooper MD 111 [facility], [facility], Level [address] [place] [phone] 12/11/2024 9:25 EST - 12/11/2024 11:40 EST Surgery [facility] OR [address] [place] [address] [phone] Celeste Cooper MD [address] [place] [address] Level [address] [place] [phone] Laparoscopic left ovarian cystectomy [52280 (CPT??)] 12/31/2024 16:15 EST Post-op Visit [facility] OBGYN Services [address] [phone] Jessika Upton MD [address] [place] [phone] 02/06/2025 13:10 EDT Appointment [facility] OBGYN Services [address] [phone] 03/05/2025 8:40 EDT Office Visit [facility] Rheumatology & Immunology [address] [phone] Nikolay Elizabeth MD [address], [facility] 5 [place] [phone] Scheduled Procedures Name Priority Associated Diagnoses Date/Ti me LAPAROSCOPY, WITH EXCISION O R FULGURATION OF LESIONS OF OVARY, PELVIC VISCERA, OR PERITONEAL SURFACE Cyst of left ovary 12/11/2024 9:25 EST documented as of this encounter Visit Diagnoses Not on filedocumented in this encounter Care Teams Grocery Manager Relationship Specialty Start Date End Date Zina Monroy DO PCP - General 05/27/19 08/05/20 documented as of this encounter
--- OUTSIDE RECORDS SUMMARY | 2024-12-08 15:31 | XMS_ITS | Encounter Summary ---
Author Organization [facility] Address [address] [place] [address] Care Team Providers Care Benefit Authorizer Name Role Phone Zina Monroy Primary Care Provider [phone] Reason for Visit * Reason Comments Routine Visit Encounter Details Date Type Department Care Team (Late st Contact Info) Description 01/30/2020 11:15 EST Routine [facility] OBGYN Services - [address] [phone] Mariluz Hancock NP [facility] 111 [facility], Level 4 [place] [address] GA: 38w6d Social History Tobacco Use Types Packs/Day Years [...] Sign Reading Time Taken Comments Blood Pressure 122/82 01/30/2020 1125 EST Pulse - - Temperature - - Respiratory Rate - - Oxygen Saturation - - Inhaled Oxygen Concentration - - Weight 87.5 kg (193 lb) 01/30/2020 1125 EST Height - - Body Mass Index 35.29 01/13/2020 1314 EST documented in this encounter [...] Progress Notes * Mariluz Hancock APRN - 01/30/2020 1115 EST S: Ulisesdoni Duffy is here today for a visit at 38w6d. Here with her mom. Has felt some leaking throughout the day for the last week. Happens with position changes / getting up out of bed and leaning forward. Not sure if it's urine? Not wearing a pad but does occ have to change her underwear. Having irregular cramping. Denies bleeding, loss of fluid or regular painful contractions. + FM. Feeling very ready for baby! Hoping to avoid IOL. O: Vitals: BP: 122/82 Weight : 87.5 kg (193 lb) Fundal Height (cm): 39 cm Heart Rate: 135 Movement: Present Presentation: Vertex Dilation: 3.5 Effacement (%): 80 Station: -1 SROM check : white mucousy discharge in vault, no pooling, no fluid from os with coughing, neg nitrizine, neg ferning A: 24 y.o. at 38w6d IUP S=D, 32w EFW 24%tile GERD Rubella NI Anxiety/depression not on meds Resolved anemia Chronic LBP RH pos / GBS neg P: Low threshold for calling with any ? Of LOF Discussed PD testing and management - will RTC early next week for membrane sweep, please order IOLand testing at [place] Reviewed warning signs/when to call Follow up early next week, sooner PRN documented in this encounter Plan of Treatment Upcoming Encounters Date Type Department Care Team (Late st Contact Info) Description 12/11/2024 9:25 EST Hospital Encounter [facility] OR [address] [place] [address] [phone] Celeste Cooper MD [address] [place] [phone] 12/11/2024 9:25 EST - 12/11/2024 11:40 EST Surgery [facility] OR [address] [place] [address] [phone] Celeste Cooper MD [address] [place] [phone] Laparoscopic left ovarian cystectomy [58774 (CPT??)] 12/31/2024 16:15 EST Post-op Visit [facility] OBGYN Services - [address] [phone] Jessika Upton MD [address] [place] [phone] 02/06/2025 13:10 EDT Appointment [facility] OBGYN Services - [address] [phone] 03/05/2025 8:40 EDT Office Visit [facility] Rheumatology & Immunology - [address] [address] Nikolay Elizabeth MD MPH [address] [place] [address], Level 5 [place] [phone] Scheduled Procedures Name Priority Associated Diagnoses Date/Ti me LAPAROSCOPY, WITH EXCISION O R FULGURATION OF LESIONS OF OVARY, PELVIC VISCERA, OR PERITONEAL SURFACE Cyst of left ovary 12/11/2024 9:25 EST documented as of this encounter Procedures Procedure Name Priority Date/Time Associated Diagnosis Comments ZZVAGINITIS EXAM Routine 01/30/2020 11:5 3 EST Supervision of normal first , antepartum documented in this encounter Results * VAGINITIS EXAM (01/30/2020 11:53 EST) Trichomonas Antigen Negative Negative 01/30/2020 21:[address] [facility] Scored Gram Smear Many Polys Yeast not present Smear NOT consistent with Bacterial vaginosis 01/30/2020 21:[address] [facility] Swab ENTIRE VAGINA / Unknown Swab / Unknown 01/30/2020 11:53 EST 01/30/2020 12:59 EST Mariluz Hancock SUPPLY CHAIN VICE PRESIDENT CN MICROBIOLOGY - GE NERAL ORDERABLES Final Result [facility] [address] [place] [address] documented in this encounter Visit Diagnoses Diagnosis Encounter for supervision of normal first in first trimester- Primary Supervision of normal first Supervision of normal first , antepartum Cyst of left ovary Other and unspecified ovarian cyst documented in this encounter Care Teams Benefit Authorizer Relationship Specialty Start Date End Date Zina Monroy DO PCP - General 05/27/19 08/05/20 documented as of this encounter
--- OUTSIDE RECORDS SUMMARY | 2024-12-08 15:31 | XMS_ITS | Encounter Summary ---
Author Organization [facility] Address [address] [place] [address] Care Team Providers Care Health Technical Writer Name Role Phone Zina Monroy Primary Care Provider [phone] Reason for Visit * Reason Comments Routine Visit Encounter Details Date Type Department Care Team (Late st Contact Info) Description 12/16/2019 13:00 EST Routine [facility] OBGYN Services - [address] [phone] Elizabeth Kednrick NP [facility] 111 [facility], Level [address] [place] [address] GA: 32w3d Social History Tobacco Use Types Packs/Day Years [...] Sign Reading Time Taken Comments Blood Pressure 124/72 12/16/2019 1306 EST Pulse - - Temperature - - Respiratory Rate - - Oxygen Saturation - - Inhaled Oxygen Concentration - - Weight 83.5 kg (184 lb) 12/16/2019 1306 EST Height 157.5 cm (5' 2.01) 12/16/2019 1306 EST Body Mass Index 33.65 12/16/2019 1306 EST documented in this encounter Functional Status [...] Progress Notes * Elizabeth Kendrick CNM - 12/16/2019 1300 EST S: [facility] is here today for a visit at 32w3d. Accompanied by French and mother Having US after this apv C/O pelvic pressure / SOB Asking about cord blood banking for private use @ time of Denies bleeding, loss of fluid or painful contractions. + FM. O: Vitals: BP: 124/72 Height: 157.5 cm (62.01) Weight : 83.5 kg (184 lb) BMI: 33.716 Fundal Height (cm): 36 cm Heart Rate: 154 Movement: Present Presentation: Vertex POCT Hb = 11.6 A: 24 y.o. at 32w3d IUP O pos Rubella NI Chronic LBP Hx depression/anxiety/ no meds/has counselor Slight anemia P: Cord blood banking through private companies/ cannot do delayed cord clamping and collect cord blood Follow up in 2 wks documented in this encounter Plan of Treatment Upcoming Encounters Date Type Department Care Team (Late st Contact Info) Description 12/11/2024 9:25 EST Hospital Encounter [facility] OR [address] [place] [address] Celeste Cooper MD 111 [facility], Level [address] [place] [phone] 12/11/2024 9:25 EST - 12/11/2024 11:40 EST Surgery [facility] OR [address] [place] [address] [phone] Celeste Cooper MD [address] [place] [address] 4 [place] [phone] Laparoscopic left ovarian cystectomy [55661 (CPT??)] 12/31/2024 16:15 EST Post-op Visit [facility] OBGYN Services [address] [phone] Jessika Upton MD [address] [place] [phone] 02/06/2025 13:10 EDT Appointment [facility] OBGYN Services [address] [phone] 03/05/2025 8:40 EDT Office Visit [facility] Rheumatology & Immunology [address] [phone] Nikolay Elizabeth MD [facility] 111 [facility], [facility] 5 [place] [phone] Scheduled Procedures Name Priority Associated Diagnoses Date/Ti me LAPAROSCOPY, WITH EXCISION O R FULGURATION OF LESIONS OF OVARY, PELVIC VISCERA, OR PERITONEAL SURFACE Cyst of left ovary 12/11/2024 9:25 EST documented as of this encounter Results * POCT HEMOGLOBIN (12/16/2019 13:20 EST) Hemoglobin, POC 11.6 11.6 - 15.2 g/dL POINT OF CARE [facility] Blood CAPILLARY BLOOD / Unknown 12/16/2019 13:20 EST Elizabeth Kendrick NUMERICAL CONTROL MACHINE TOOL OPERATOR CNM POINT OF CARE TEST ORDERA BLES Final Result POINT OF CARE [facility] documented in this encounter Visit Diagnoses Diagnosis Anemia during in third trimester- Primary Cyst of left ovary Other and unspecified ovarian cyst documented in this encounter Care Teams Health Technical Writer Relationship Specialty Start Date End Date Zina Monroy DO PCP - General 05/27/19 08/05/20 documented as of this encounter
--- OUTSIDE RECORDS SUMMARY | 2024-12-08 15:32 | XMS_ITS | Encounter Summary ---
Author Organization [facility] Address [address] [place] [address] Care Team Providers Care Sheet Metal Worker Name Role Phone Zina Monroy Primary Care Provider [phone] Reason for Visit * Reason Onset Date Comments Results 05/31/2019 Encounter Details Date Type Department Care Team (Late st Contact Info) Description 05/31/2019 Telephone [facility] - [facility] [address] [place] [address] Celeste Cooper MD 111 [facility], Level 4 [place] [address] Results Social History Tobacco Use Types Packs/Day Years Used Date Smoking Tobacco: Never Smokeless Tobacco: Never Comments Yes Sex and Gender Information Value [...] encounter Miscellaneous Notes * Telephone Encounter - Ginger Carpio RN - 05/31/2019 1604 EDT Please see other documentation related to this issue. * Telephone Encounter - Alicia Saunders - 05/31/2019 1600 EDT The patient is calling to request the results of her HCG testing. The best number to reach her is [phone]. documented in this encounter Plan of Treatment Upcoming Encounters Date Type Department Care Team (Late st Contact Info) Description 12/11/2024 9:25 EST Hospital Encounter [facility] OR [address] [place] [address] [phone] Celeste Cooper MD [address] [place] [address] [phone] 12/11/2024 9:25 EST - 12/11/2024 11:40 EST Surgery [facility] OR [address] [place] [address] [phone] Celeste Cooper MD [address] [place] [address] [phone] Laparoscopic left ovarian cystectomy [[id number] (CPT??)] 12/31/2024 16:15 EST Post-op Visit [facility] - [address] [phone] Jessika Upton MD [address] [place] [address] [phone] 02/06/2025 13:10 EDT Appointment [facility] [address] [phone] 03/05/2025 8:40 EDT Office Visit [facility] - [address] [address] Nikolay Elizabeth MD MPH 111 [facility], Level 5 [place] [phone] Scheduled Procedures Name Priority Associated Diagnoses Date/Ti me LAPAROSCOPY, WITH EXCISION O R FULGURATION OF LESIONS OF OVARY, PELVIC VISCERA, OR PERITONEAL SURFACE Cyst of left ovary 12/11/2024 9:25 EST documented as of this encounter Visit Diagnoses Not on filedocumented in this encounter Care Teams Sheet Metal Worker Relationship Specialty Start Date End Date Zina Monroy DO PCP - General 05/27/19 08/05/20 documented as of this encounter
--- OUTSIDE RECORDS SUMMARY | 2024-12-08 15:32 | XMS_ITS | Encounter Summary ---
Author Organization [facility] Address [address] [place] [address] Care Team Providers Care Pickle Cutter Name Role Phone Zina Monroy Primary Care Provider [phone] Encounter Details Date Type Department Care Team (Late st Contact Info) Description 07/01/2019 Orders Only [facility] OBGYN Services - [address] [address] Miracle López, RN Supervision of normal intrauterine in multigravida in first trimester (Primary Dx); related condition in first trimester; Screening for HPV (human papillomavirus); Pap smear for cervical cancer screening Social History Tobacco Use Types Packs/Day Years [...] Info) Description 12/11/2024 9:25 EST Hospital Encounter [facility] OR [address] [place] [address] [phone] Celeste Cooper MD [address] [place] [address] [address] [place] [phone] 12/11/2024 9:25 EST - 12/11/2024 11:40 EST Surgery [facility] OR [address] [place] [address] [phone] Celeste Cooper MD [address] [place] [address] [address] [place] [phone] Laparoscopic left ovarian cystectomy [65504 (CPT??)] 12/31/2024 16:15 EST Post-op Visit [facility] [address] [phone] Jessika Upton MD [address] [place] [address] [phone] 02/06/2025 13:10 EDT Appointment [facility]YN [address] [phone] 03/05/2025 8:40 EDT Office Visit [facility] Rheumatology [facility] Immunology [address] 720161 Nikolay Elizabeth MD MPH [address] [place] [address], [facility] [address] [place] [phone] Scheduled Procedures Name Priority Associated Diagnoses Date/Ti me LAPAROSCOPY, WITH EXCISION O R FULGURATION OF LESIONS OF OVARY, PELVIC VISCERA, OR PERITONEAL SURFACE Cyst of left ovary 12/11/2024 9:25 EST documented as of this encounter Results * (ABNORMAL) PROFILE AND VARICELLA (07/31/2019 12:41 EDT) ABO and Rh Type O POS 9 17:01 [facility] Antibody Screen Neg 9 17:01 [facility] Rubells IgG Ab Equivocal 08/01/2019 10:30 [facility] Comment: Recommend collecting a second sample for testing in no less than one to two weeks. WBC 11.28 4.0 - 12.4 K/cmm 07/31/2019 13:02 [facility] RBC 4.42 3.86 - 5.04 M/cm 07/31/2019 13:02 [facility] Hemoglobin 12.6 11.6 - 15.2 gm/dl 07/31/2019 13:02 [facility] HCT 37.0 34.9 - 44.4 % 07/31/2019 13:02 [facility] MCV 84 81 - 98 fl 07/31/2019 13:02 [facility] MCH 28.5 26.7 - 33.3 pg 07/31/2019 13:02 [facility] MCHC 34.1 32.1 - 35.9 gm/dl 07/31/2019 13:02 [facility] RDW-CV 13.1 <14.7 % 07/31/2019 13:02 [facility] RDW-SD 40.3 <50.4 fl 07/31/2019 13:02 [facility] PLT 258 141 - 377 K/cmm 07/31/2019 13:02 [facility] MPV 10.6 9.5 - 12.7 fl 07/31/2019 13:02 [facility] Hepatitis B Surface Antigen Negative Negative 07/31/2019 14:46 [facility] % Neutrophils 71.9 % 07/31/2019 13:02 [facility] % Lymphocytes 20.1 % 07/31/2019 13:02 [facility] % Monocytes 6.3 % 07/31/2019 13:02 [facility] % Eosinophils 0.7 % 07/31/2019 13:02 [facility] % Basophils 0.4 % 07/31/2019 13:02 [facility] % Immature Grans 0.6 % 07/31/2019 13:02 [facility] ABS Neutrophils 8.11 2.20 - 8.85 K/cmm 07/31/2019 13:02 [facility] ABS Lymphs 2.27 1.09 - 3.30 K/cm 07/31/2019 13:02 [facility] ABS Monocytes 0.71 0.1 - 0.8 K/cm 07/31/2019 13:02 [facility] ABS Eosinophils 0.08 0.03 - 0.61 K/cm 07/31/2019 13:02 [facility] ABS Basophils 0.04 0.01 - 0.11 K/cm 07/31/2019 13:02 [facility] ABS Immature Grans 0.07(H) 0 - 0.06 K/cmm 07/31/2019 13:02 [facility] Type of Diff: Automated 07/31/2019 13:02 [facility] Syphilis Serology Negative 07/31/2019 14:53 [facility] Comment:Reference Range: Neg ative Varicella IgG Ab Positive 07/31/2019 14:49 [facility] Comment: Presence of detectable Varicella Zoster virus IgG antibodies. Blood specimen (specimen) BLOOD SPECIMEN / Unknown 07/31/2019 12:41 EDT 07/31/2019 12:51 EDT Mariluz Hancock MACHINE BURRER CNM PACKAGES & DNA AL OBE ORDERABLES Final Result [facility] [address] [place] [address] * HIV 1/2 ANTIGEN AND ANTIBODY, 4TH GENERATION (07/31/2019 12:41 EDT) HIV 1/2 Antibody Negative Negative 07/31/20 19 15:16 [facility] Comment: Fourth generation assay performed on the Siemens Centaur. If acute HIV-1 infection is suspected in a high risk patient, submit plasma specimen for HIV-1 RNA quantification test. Blood specimen (specimen) BLOOD SPECIMEN / Unknown 07/31/2019 12:41 EDT 07/31/2019 12:51 EDT Mariluz Hancock NP CNM IMMUNOLOGY AND SE ROLOGY ORDERABLES Final Result Performing Organization Address City/[facility] Co de Phone Number [facility] [address] [place] [address] * BACTERIAL CULTURE, URINE (07/03/2019 15:27 EDT) Result Less than 10,000 CFU/ml Usual urogenital nataliya. 07/04/2019 12:30 EDT [facility] Urine specimen (specimen) URINE / Unknown 07/03/2019 15:27 EDT 07/03/2019 16:15 EDT Mariluz HART MICROBIOLOGY - GE NERAL ORDERABLES Final Result Performing Organization Address City/[facility] Co de Phone Number [facility] [address] [place] [phone] documented in this encounter Visit Diagnoses Diagnosis Supervision of normal intrauterine in multigravida in first trimester- Primary related condition in first trimester Unspecified complication of , antepartum Screening for HPV (human papillomavirus) Special screening examination for human papillomavirus (HPV) Pap smear for cervical cancer screening Screening for malignant neoplasm of the cervix Cyst of left ovary Other and unspecified ovarian cyst documented in this encounter Care Teams Pickle Cutter Relationship Specialty Start Date End Date Zina Monroy DO PCP - General 05/27/19 08/05/20 documented as of this encounter
--- OUTSIDE RECORDS SUMMARY | 2024-12-08 15:32 | XMS_ITS | Encounter Summary ---
Author Organization [facility] Address [address] [place] [address] Care Team Providers Care Pool Manager Name Role Phone Zina Monroy DO Primary Care Provider [phone] Reason for Referral * ORE DIGGER (Routine/Next Available) - Closed Specialty Diagnoses / Procedures Referred By Seema kapoor Referred To Contact Chiropractic Medicine Diagnoses related back pain in second trimester, antepartum [facility] [address] [address] Phone: tel: fax: Stephanie Gilbert DC [address] [place] [address] Phone: tel: fax: Referral ID Status Reason Start Date Expiration Date V isits Requested Visits Authorized [id number] Closed Specialty Services Required 10/29/2019 1 1 Question Answer Reason for Request: , lower back pain eval Comments Pt , 25w4d, c/o lower back pain and sciatica. Pls eval and treat Reason for Visit * Reason Onset Date Comments Referral Request 10/29/2019 Encounter Details Date Type Department Care Team (Late st Contact Info) Description 10/29/2019 Telephone [facility] OBN Services [address] [address] Elizabeth Kendrick NP CNM 111 [facility], Level 4 [place] [phone] Referral Request Social History Tobacco Use Types Packs/Day Years [...] documented in this encounter Miscellaneous Notes * Addendum Note - Juliana Mckenzie RN - 10/29/2019 1424 ESTAddended by: JULIANA MCKENZIE on: 10/29/2019 14:24 Modules accepted: Orders * Telephone Encounter - Juliana Mckenzie RN - 10/29/2019 1423 EST Referral entered and faxed via [employer]. * Telephone Encounter - Shanell Small - 10/29/2019 1246 EST Janette from [facility] called in stating that this pt, Ulises Duffy, just made an appointment with them from a referral, but they don't have the referral. I told her I would send her nurses a message to see if they can get one over to the practice. If any questions: Janette can be reached at [phone] And the referral can be sent to: [phone]. documented in this encounter Plan of Treatment Upcoming Encounters Date Type Department Care Team (Late st Contact Info) Description 12/11/2024 9:25 EST Hospital Encounter [facility] OR [address] [place] [address] [phone] Celeste Cooper MD [address] [place] [phone] 12/11/2024 9:25 EST - 12/11/2024 11:40 EST Surgery [facility] OR [address] [place] [address] [phone] Celeste Cooper MD [address] [place] [phone] Laparoscopic left ovarian cystectomy [[id number] (CPT??)] 12/31/2024 16:15 EST Post-op Visit [facility] O[facility]YN Services [address] [phone] Jessika Upton MD [address] [place] [phone] 02/06/2025 13:10 EDT Appointment [facility] Services [address] [phone] 03/05/2025 8:40 EDT Office Visit [facility] Rheumatology & Immunology - [address] [phone] Nikolay Elizabeth MD MPH 111 [facility], Level 5 [place] [phone] Scheduled Procedures Name Priority Associated Diagnoses Date/Ti me LAPAROSCOPY, WITH EXCISION O R FULGURATION OF LESIONS OF OVARY, PELVIC VISCERA, OR PERITONEAL SURFACE Cyst of left ovary 12/11/2024 9:25 EST Scheduled Referrals Name Type Priority Associated Diagnoses Order Schedule AMB CONS/FOLLOW UP CHIROPRACTIC Outpatient Referral Routine related back pain in second trimester, antepartum Ordered: 10/29/2019 documented as of this encounter Visit Diagnoses Diagnosis related back pain in second trimester, antepartum- Primary Cyst of left ovary Other and unspecified ovarian cyst documented in this encounter Care Teams Pool Manager Relationship Specialty Start Date End Date Zina Monroy DO PCP - General 05/27/19 08/05/20 documented as of this encounter
--- OUTSIDE RECORDS SUMMARY | 2024-12-08 15:32 | XMS_ITS | Encounter Summary ---
Author Organization [facility] Address [address] [place] [address] Care Team Providers Care Glass Etcher Helper Name Role Phone Zina Monroy Primary Care Provider [phone] Reason for Visit * Reason Onset Date Comments Medications Refill 07/31/2019 Zofran Encounter Details Date Type Department Care Team (Late st Contact Info) Description 07/31/2019 Telephone [facility] - [address] [address] Miracle López, MYA Medications Refill (Zofran) Social History Tobacco Use Types Packs/Day Years [...] encounter Miscellaneous Notes * Telephone Encounter - Miracle López, RN - 07/31/2019 0928 EDT TC from [facility] at 12+5 weeks asking for Zofran refill. Has not used the two refills on initial prescription. Advised to call pharmacy for refill and to let us know if they are unable to fill it. documented in this encounter Plan of Treatment Upcoming Encounters Date Type Department Care Team (Late st Contact Info) Description 12/11/2024 9:25 EST Hospital Encounter [facility] OR [address] [place] [address] [phone] Celeste Cooper MD [address] [place] [phone] 12/11/2024 9:25 EST - 12/11/2024 11:40 EST Surgery [facility] OR [address] [place] [address] [phone] Celeste Cooper MD [address] [place] [phone] Laparoscopic left ovarian cystectomy [[id number] (CPT??)] 12/31/2024 16:15 EST Post-op Visit [facility] - [address] [phone] Jessika Upton MD [address] [place] [phone] 02/06/2025 13:10 EDT Appointment [facility] [address] [phone] 03/05/2025 8:40 EDT Office Visit [facility] Rheumatology [facility] Immunology - [address] [phone] Nikolay Elizabeth MD MPH [address] [place] [address], Level 5 [place] [phone] Scheduled Procedures Name Priority Associated Diagnoses Date/Ti me LAPAROSCOPY, WITH EXCISION O R FULGURATION OF LESIONS OF OVARY, PELVIC VISCERA, OR PERITONEAL SURFACE Cyst of left ovary 12/11/2024 9:25 EST documented as of this encounter Visit Diagnoses Not on filedocumented in this encounter Care Teams Glass Etcher Helper Relationship Specialty Start Date End Date Zina Monroy DO PCP - General 05/27/19 08/05/20 documented as of this encounter
--- OUTSIDE RECORDS SUMMARY | 2024-12-08 15:32 | XMS_ITS | Encounter Summary ---
Author Organization [facility] Address [address] [place] [address] Care Team Providers Care Central Office Operator Supervisor Name Role Phone Zina Monroy Primary Care Provider [phone] Reason for Visit * Reason Comments Routine Visit No concerns. Encounter Details Date Type Department Care Team (Late st Contact Info) Description 10/21/2019 17:45 EST Routine [facility] Services - [address] [phone] Elizabeth Kendrick NP [address], Level [address] [place] [address] GA: 24w3d Social History Tobacco Use Types Packs/Day Years [...] Sign Reading Time Taken Comments Blood Pressure 120/60 10/21/2019 1744 EST Pulse - - Temperature - - Respiratory Rate - - Oxygen Saturation - - Inhaled Oxygen Concentration - - Weight 78.2 kg (172 lb 6.4 oz) 10/21/[address] Height - - Body Mass Index 31.52 08/28/2019 1529 EDT documented in this encounter Functional Status [...] Progress Notes * Elizabeth Kendrick CNM - 10/21/2019 1745 EST S: Tillman Mikayla Duffy is here today for a visit at 24w3d. Accompanied by French Having a lot of low back ain and sciatica - does not remember doing anything that would cause it Denies bleeding, loss of fluid or painful contractions. + FM. O: Vitals: BP: 120/60 Weight : 78.2 kg (172 lb 6.4 oz) Fundal Height (cm): 26 cm Heart Rate: 138 Movement: Present A: 24 y.o. at 24w3d IUP O pos Hx depression P: Flu vaccine given Recommend chiropractor for back Discuss glucose test, add Rubella titer Follow up in 4 wks documented in this encounter Plan of Treatment Upcoming Encounters Date Type Department Care Team (Late st Contact Info) Description 12/11/2024 9:25 EST Hospital Encounter [facility] OR [address] [place] [address] [phone] Celeste Cooper MD 111 [facility], Level [address] [place] [phone] 12/11/2024 9:25 EST - 12/11/2024 11:40 EST Surgery [facility] OR [address] [place], [place] [phone] Celeste Cooper MD [address] [place] [address] [address] [place] [phone] Laparoscopic left ovarian cystectomy [[id number] (CPT??)] 12/31/2024 16:15 EST Post-op Visit [facility] [address] [phone] Jessika Upton MD [address] [place] [address] [phone] 02/06/2025 13:10 EDT Appointment [facility] [address] [phone] 03/05/2025 8:40 EDT Office Visit [facility]ology [facility] Immunology [address] [phone] Nikolay Elizabeth MD [address], [facility] [address] [place] [phone] Scheduled Procedures Name Priority Associated Diagnoses Date/Ti me LAPAROSCOPY, WITH EXCISION O R FULGURATION OF LESIONS OF OVARY, PELVIC VISCERA, OR PERITONEAL SURFACE Cyst of left ovary 12/11/2024 9:25 EST documented as of this encounter Visit Diagnoses Diagnosis Need for prophylactic vaccination and inoculation against influenza- Primary Cyst of left ovary Other and unspecified ovarian cyst documented in this encounter Orders Immunization/Injection Count Last Ordered Date First Ordered Date INFLUENZA VACCINE QUAD (FLULAVAL/FLUARIX/FLUZONE) PF 0.5 ML IM (6 MOS+) 1 10/21/2019 documented in this encounter Care Teams Central Office Operator Supervisor Relationship Specialty Start Date End Date Zina Monroy DO PCP - General 05/27/19 08/05/20 documented as of this encounter
--- OUTSIDE RECORDS SUMMARY | 2024-12-08 15:32 | XMS_ITS | Encounter Summary ---
Author Organization [facility] Address [address] [place] [address] Care Team Providers Care Collection Clerk Name Role Phone Zina Monroy Primary Care Provider [phone] Encounter Details Date Type Department Care Team (Late st Contact Info) Description 05/27/2019 14:53 EDT - 05/27/2019 23:59 EDT Hospital Encounter [facility] [place] [address] [place] [address] Celeste Cooper MD 111 [facility], Level [address] [place] [address] Discharge Disposition: Auto Discharge Social History Tobacco Use Types Packs/Day Years [...] 02/15/2018 14:07 EDT documented in this encounter Discharge Diagnoses Diagnosis O28.3 Abnormal ultrasonic finding on screening of mother-O28.3[ICD-10-CM] documented in this encounter Medications at Time of Discharge ALPRAZolam (XANAX) 0.5 mg tablet 1 tab(s) orally Daily PRN 04/16/2019 11/05/2020 drospirenone-ethi nyl estradioL (JACQUIE) 3-0.02 mg per tablet 1 tab(s) orally once a day 12/14/2018 10/21/2020 LORazepam (ATIVAN) 0.5 mg tablet 1 tab(s) orally 2 times a day PRN 04/19/2019 11/05/2020 documented as of this encounter Discharge Disposition Disposition Code Departure Means Destination Auto Discharge Home documented in this encounter Plan of Treatment Upcoming Encounters Date Type Department Care Team (Late st Contact Info) Description 12/11/2024 9:25 EST Hospital Encounter [facility] OR [address] [place] [address] [phone] Celeste Cooper MD [address] [place] [phone] 12/11/2024 9:25 EST - 12/11/2024 11:40 EST Surgery [facility] OR [address] [place] [address] [phone] Celeste Cooper MD [address] [place] [address] [phone] Laparoscopic left ovarian cystectomy [[id number] (CPT??)] 12/31/2024 16:15 EST Post-op Visit [facility] OBGYN Services - [address] [phone] Jessika Upton MD [address] [place] [address] [phone] 02/06/2025 13:10 EDT Appointment [facility] OBGYN Services - [address] [address] 03/05/2025 8:40 EDT Office Visit [facility] Rheumatology & Immunology [address] [phone] Nikolay Elizabeth MD MPH 111 [facility], Level [address] [place] [phone] Scheduled Procedures Name Priority Associated Diagnoses Date/Ti me LAPAROSCOPY, WITH EXCISION O R FULGURATION OF LESIONS OF OVARY, PELVIC VISCERA, OR PERITONEAL SURFACE Cyst of left ovary 12/11/2024 9:25 EST documented as of this encounter Visit Diagnoses Not on filedocumented in this encounter Care Teams Collection Clerk Relationship Specialty Start Date End Date Zina Monroy DO PCP - General 05/27/19 08/05/20 documented as of this encounter
--- OUTSIDE RECORDS SUMMARY | 2024-12-08 15:32 | XMS_ITS | Encounter Summary ---
Author Organization [facility] Address [address] [place] [address] Care Team Providers Care Business Process Associate Name Role Phone Zina Monroy Primary Care Provider [phone] Encounter Details Date Type Department Care Team (Late st Contact Info) Description 07/31/2019 Orders Only [facility] OBGYN Services - [address] [id number] Marco A Lopez APRN [facility] [address] [facility], Level 4 [place] [address] Yeast vaginitis (Primary Dx) Social History Tobacco Use Types [...] Info) Description 12/11/2024 9:25 EST Hospital Encounter [facility] OR [address] [place] [address] [phone] Celeste Cooper MD [address] [place] [address] 4 [place] [phone] 12/11/2024 9:25 EST - 12/11/2024 11:40 EST Surgery [facility] OR [address] [place] [address] [phone] Celeste Cooper MD [address] [place] [address] 4 [place] [phone] Laparoscopic left ovarian cystectomy [45945 (CPT??)] 12/31/2024 16:15 EST Post-op Visit [facility] [address] [phone] Jessika Upton MD [address] [place] [phone] 02/06/2025 13:10 EDT Appointment [facility] [address] [address] 03/05/2025 8:40 EDT Office Visit [facility] Rheumatology & Immunology [address] [phone] Nikolay Elizabeth MD [address] 5 [place] [phone] Scheduled Procedures Name Priority Associated Diagnoses Date/Ti me LAPAROSCOPY, WITH EXCISION O R FULGURATION OF LESIONS OF OVARY, PELVIC VISCERA, OR PERITONEAL SURFACE Cyst of left ovary 12/11/2024 9:25 EST documented as of this encounter Procedures Procedure Name Priority Date/Time Associated Diagnosis Comments ZZVAGINITIS EXAM Routine 07/31/2019 16:5 4 EDT Yeast vaginitis documented in this encounter Results * VAGINITIS EXAM (07/31/2019 16:54 EDT) Gram Smear Result Yeast forms present 07/31/2019 20:30 EDT [facility] Gram Smear Result Smear NOT consistent with bacterial vaginosis. 07/31/2019 20:30 EDT [facility] Result No Trichomonas antigen detected. 07/31/2019 20:26 EDT [facility] Specimen of unknown material (specimen) VAGINAL STRUCTURE / Unknown 07/31/2019 16:54 EDT 07/31/2019 17:38 EDT Comment:Specimen submitted o n a flocked swab. Marco A Lopez APRN [facility] MICROBIOLOGY - GENERAL ORDERABLES Final Result [facility] [address] [place] [address] documented in this encounter Visit Diagnoses Diagnosis Yeast vaginitis- Primary Candidiasis of vulva and vagina Cyst of left ovary Other and unspecified ovarian cyst documented in this encounter Care Teams Business Process Associate Relationship Specialty Start Date End Date Zina Monroy DO PCP - General 05/27/19 08/05/20 documented as of this encounter
--- OUTSIDE RECORDS SUMMARY | 2024-12-08 15:32 | XMS_ITS | Encounter Summary ---
Author Organization [facility] Address [address] [place] [address] Care Team Providers Care Smokehouse Worker Name Role Phone Rik Monroyah Ashli PERKINS Primary Care Provider [phone] Reason for Referral * REFRIGERATION LEAD (Other (Specify in Question)) - New Request Specialty Diagnoses / Procedures Referred By Seema kapoor Referred To Contact Diagnoses Encounter for supervision of other normal in second trimester Procedures [facility] Marco A Lopez APRN CNM Phone: tel: fax: Referral ID Status Reason Start Date Expiration Date V isits Requested Visits Authorized [id number] New Request 07/31/2019 1 1 Reason for Visit * Reason Comments Routine Visit Encounter Details Date Type Department Care Team (Late st Contact Info) Description 07/31/2019 13:30 EDT Routine [facility] OBGYN Services - [address] [phone] Marco A Lopez APRN CNM 111 [facility], Level 4 [place] [address] GA: 12w5d Social History Tobacco Use Types Packs/Day Years [...] Sign Reading Time Taken Comments Blood Pressure 116/62 07/31/2019 1339 EDT Pulse - - Temperature - - Respiratory Rate - - Oxygen Saturation - - Inhaled Oxygen Concentration - - Weight 72.6 kg (160 lb) 07/31/2019 1339 EDT Height 157.5 cm (5' 2.01) 07/31/2019 1339 EDT Body Mass Index 29.26 07/31/2019 1339 EDT documented in this encounter Functional Status [...] documented in this encounter Progress Notes * Marco A Lopez CNM - 07/31/2019 1330 EDT S: [facility] is here today for a KENNEDY Part 2 visit. Here with partner French. Havingterrible vaginal itching/irritation and burning - thinks has bad yeast infection and declines pelvic exam today. Did 7 day Monistat applicator in vagina last night and made sx worse so tried to wash out of vagina - just used cream on outside. Just had 12 wk U/S d/t hx early losses. Nausea getting better - not vomiting any longer. Zofran helps and uses occasionally. Partner's 23 & Me test negative for CF/SMA (didn't bring but checked results). Did NIPT today with PN labs. O: Vitals: BP: 116/62 Height: 157.5 cm (62.01) Weight : 72.6 kg (160 lb) BMI: 29.318 Heart Rate: 142 U/S today all WNL Vulva with erythema, curdy discharge Rest of PE all WNL A: 24 y.o. at 12w5d IUP S=D Yeast vaginitis likely by clinical sx Due for pap F/U P: Needs pelvic exam/pelvimetry with pap and GC/CT next visit Vaginal swab obtained - strongly suspect yeast. Discussed trying generic miconozole (sometimes less irritating) and if unable to tolerate will Rx with Diflucan 150 mg PO. Cotton underwear/air to area Declines AFP NIPT with PN labs today Clarify if wants vs MIKE next visit (forgot to inquire today) ROSA ordered Follow up in 4 wks documented in this encounter Plan of Treatment Upcoming Encounters Date Type Department Care Team (Late st Contact Info) Description 12/11/2024 9:25 EST Hospital Encounter [facility] OR [address] [place] [address] Celeste Cooper MD [address] [place] [phone] 12/11/2024 9:25 EST - 12/11/2024 11:40 EST Surgery [facility] OR [address] [place] [address] [phone] Celeste Cooper MD [address] [place] [phone] Laparoscopic left ovarian cystectomy [98028 (CPT??)] 12/31/2024 16:15 EST Post-op Visit [facility] OBGYN Services - [address] [address] Jessika Upton MD [address] [place] [phone] 02/06/2025 13:10 EDT Appointment [facility] [address] [address] 03/05/2025 8:40 EDT Office Visit [facility] Rheumatology & Immunology [address] [phone] Nikolay Elizabeth MD MPH [address] [place] [address] 5 [place] [phone] Scheduled Procedures Name Priority Associated Diagnoses Date/Ti me LAPAROSCOPY, WITH EXCISION O R FULGURATION OF LESIONS OF OVARY, PELVIC VISCERA, OR PERITONEAL SURFACE Cyst of left ovary 12/11/2024 9:25 EST documented as of this encounter Procedures Procedure Name Priority Date/Time Associated Diagnosis Comments [facility] Routine 09/20/2019 15:40 EDT Encounter for supervision of other normal in second trimester documented in this encounter Results * [facility] (09/20/2019 15:40 EDT) Anatomical Region Laterality Modality Other 09/20/2019 15:4 0 EDT 09/20/2019 16:15 EDT Narrative 09/20/2019 16:15 EDT Indication Screening. History ======= General History Height 157 cm Height (ft) ?5 ft Height (in) ?2 in Previous Outcomes ?3 Para ?? 0 Alan children born (T) ?0 Alan children born (P) ?0 Abortions (A) ??2 Alan living children (L) ??0 Maternal Assessment Height 157 cm Height (ft) ?5 ft Height (in) ?2 in Physical Exam Initial weight 72 kg Initial weight (lb) ?158 lb Initial BMI ?28.90 kg/m? Number of fetuses: 1. Dating ======= Ultrasound examination on: 09/20/2019 GA by U/S based upon: ??AC, BPD, Femur GA by U/S ??19 w + 5 d RHODA by U/S: ?02/09/2020 Method of dating: ??Restore dating from previous exam Previous dating: ?? Dating performed on 06/12/2019, based on ultrasound (CRL) Assigned GA of previous dating 20 w + 0 d Agreed RHODA of previous datin02/07/2020 Assigned: ??Dating performed on 06/12/2019, based on ultrasound (CRL) Assigned GA ?20 w + 0 d Assigned RHODA: ??02/07/2020 General Evaluation Cardiac activity: Present. FHR 150 bpm. movements: visualized. Presentation: bryan breech. Placenta: posterior, high. Umbilical cord: Cord vessels: 3 vessel cord. Cord insertion: placental insertion: normal. Amniotic fluid: Amount of AF: normal. Biometry Biometry BPD ?44.2 mm 24% 19w 3d Hadlock OFD ?59.7 mm 74% 20w 5d Liu HC 166.1 mm ?28% Chervenak AC 149.1 mm ?50% 20w 1d Hadlock Femur ??30.7 mm 46% 19w 5d Liu Cerebellum tr ??21.8 mm 88% 21w 2d Holguin CM 6.6 mm ??91% Nicolaides Nuchal fold ?4.44 mm Humerus ?29.1 mm 36% 19w 3d Liu EFW ?313 g Calculated by: Hadlock ([id number]) EFW (lb) ?? 0 lb EFW (oz) ?? 11 oz Cephalic index 0.74 ?8% Nicolaides HC / AC ?1.11 ?19% Hadlock FL / BPD ?? 0.69 ?45% Hadlock FL / AC ?0.21 ?18% Hadlock FHR ?150 bpm Head / Face / Neck Veterinary Surgeon 7.1 mm Anatomy Cranium: ?? normal Lateral ventricles: ?normal Choroid plexus: ?normal Midline falx: ??normal Cavum septi pellucidi: normal Cerebellum: ?normal Cisterna magna: ?normal Lips: ??normal 4-chamber view: ?normal RVOT: ??normal LVOT: ??normal 3-vessel view: normal 5-iunryk-eoipgve view: normal Cord insertion: ?normal Stomach: ?? normal Kidneys: ?? normal Bladder: ?? normal Abdom. wall: ?? normal Cervical spine: ?normal Thoracic spine: ?normal Lumbar spine: ??normal Sacral spine: ??normal Arms: ??normal Legs: ??normal Gender: ?female Wants to know gender: ??yes Maternal Structures Uterus / Cervix Uterus: ?Appears normal Cervix: ?Appears normal Ovaries / Tubes / Adnexa Rt ovary: ??Visualized, normal appearance Rt ovary D1 ?2.4 cm Rt ovary D2 ?2.5 cm Rt ovary D3 ?1.8 cm Rt ovary mean ??2.2 cm Rt ovary vol ?? 5.5 cm cubed Rt ovarian cyst(s): ?Cysts identified Findings: ??Simple cyst D1 29.5 mm D2 30.4 mm D3 21.7 mm Mean ?? 27.2 mm Vol ?10.190 cm cubed Lt ovary: ??Visualized, normal appearance Lt ovary D1 ?5.5 cm Lt ovary D2 ?3.7 cm Lt ovary D3 ?3.5 cm Lt ovary mean ??4.2 cm Lt ovary vol ?? 37.4 cm cubed Method ======== Voluson E10, Transabdominal ultrasound examination. View: Sufficient. Impression [id number] Obstetrical ultrasound with and maternal evaluation This is a alan gestation. Biometry is consistent with early ultrasound dating. Anatomy appears normal as noted above; however, ultrasound cannot detect all anomalies. There is trunk and extremity movement noted. The amniotic fluid volume appears normal. Follow-up Follow-up as clinically indicated. DATE OF SERVICE: 09/20/2019 Procedure Note Yumiko Plummer MD - 09/20/2019 Indication Screening. History ======= General History Height 157 cm Height (ft) 5 ft Height (in) 2 in Previous Outcomes 3 Para 0 Alan children born (T) 0 Alan children born (P) 0 Abortions (A) 2 Alan living children (L) 0 Maternal Assessment Height 157 cm Height (ft) 5 ft Height (in) 2 in Physical Exam Initial weight 72 kg Initial weight (lb) 158 lb Initial BMI 28.90 kg/m? Number of fetuses: 1. Dating ======= Ultrasound examination on: 09/20/2019 GA by U/S based upon: AC, BPD, Femur GA by U/S 19 w + 5 d RHODA by U/S: 02/09/2020 Method of dating: Restore dating from previous exam Previous dating: Dating performed on 06/12/2019, based on ultrasound (CRL) Assigned GA of previous dating 20 w + 0 d Agreed RHODA of previous datin02/07/2020 Assigned: Dating performed on 06/12/2019, based on ultrasound (CRL) Assigned GA 20 w + 0 d Assigned RHODA: 02/07/2020 General Evaluation Cardiac activity: Present. FHR 150 bpm. movements: visualized. Presentation: bryan breech. Placenta: posterior, high. Umbilical cord: Cord vessels: 3 vessel cord. Cord insertion: placental insertion: normal. Amniotic fluid: Amount of AF: normal. Biometry Biometry BPD 44.2 mm 24% 19w 3d Hadlock OFD 59.7 mm 74% 20w 5d Liu HC 166.1 mm 28% Chervenak AC 149.1 mm 50% 20w 1d Hadlock Femur 30.7 mm 46% 19w 5d Liu Cerebellum tr 21.8 mm 88% 21w 2d Holguin CM 6.6 mm 91% Nicolaides Nuchal fold 4.44 mm Humerus 29.1 mm 36% 19w 3d Liu EFW 313 g Calculated by: Hadlock ([id number]) EFW (lb) 0 lb EFW (oz) 11 oz Cephalic index 0.74 8% Nicolaides HC / AC 1.11 19% Hadlock FL / BPD 0.69 45% Hadlock FL / AC 0.21 18% Hadlock FHR 150 bpm Head / Face / Neck Veterinary Surgeon 7.1 mm Anatomy Cranium: normal Lateral ventricles: normal Choroid plexus: normal Midline falx: normal Cavum septi pellucidi: normal Cerebellum: normal Cisterna magna: normal Lips: normal 4-chamber view: normal RVOT: normal LVOT: normal 3-vessel view: normal 1-mvuaaw-dskexog view: normal Cord insertion: normal Stomach: normal Kidneys: normal Bladder: normal Abdom. wall: normal Cervical spine: normal Thoracic spine: normal Lumbar spine: normal Sacral spine: normal Arms: normal Legs: normal Gender: female Wants to know gender: yes Maternal Structures Uterus / Cervix Uterus: Appears normal Cervix: Appears normal Ovaries / Tubes / Adnexa Rt ovary: Visualized, normal appearance Rt ovary D1 2.4 cm Rt ovary D2 2.5 cm Rt ovary D3 1.8 cm Rt ovary mean 2.2 cm Rt ovary vol 5.5 cm cubed Rt ovarian cyst(s): Cysts identified Findings: Simple cyst D1 29.5 mm D2 30.4 mm D3 21.7 mm Mean 27.2 mm Vol 10.190 cm cubed Lt ovary: Visualized, normal appearance Lt ovary D1 5.5 cm Lt ovary D2 3.7 cm Lt ovary D3 3.5 cm Lt ovary mean 4.2 cm Lt ovary vol 37.4 cm cubed Method ======== Voluson E10, Transabdominal ultrasound examination. View: Sufficient. Impression [id number] Obstetrical ultrasound with and maternal evaluation This is a alan gestation. Biometry is consistent with early ultrasound dating. Anatomy appears normal as noted above; however, ultrasound cannot detect all anomalies. There is trunk and extremity movement noted. The amniotic fluid volume appears normal. Follow-up Follow-up as clinically indicated. DATE OF SERVICE: 09/20/2019 Marco A Lopez APRN, CNM IM US [facility] Final Result * VAGINITIS EXAM (07/31/2019 16:54 EDT) Gram Smear Result Yeast forms present 07/31/2019 20:30 EDT [facility] Gram Smear Result Smear NOT consistent with bacterial vaginosis. 07/31/2019 20:30 EDT [facility] Result No Trichomonas antigen detected. 07/31/2019 20:26 EDT [facility] Specimen of unknown material (specimen) VAGINAL STRUCTURE / Unknown 07/31/2019 16:54 EDT 07/31/2019 17:38 EDT Comment:Specimen submitted o n a flocked swab. Marco A HART MICROBIOLOGY - GENERAL ORDERABLES Final Result [facility] [address] [place] [address] documented in this encounter Visit Diagnoses Diagnosis Encounter for supervision of other normal in second trimester- Primary Yeast vaginitis Candidiasis of vulva and vagina Cyst of left ovary Other and unspecified ovarian cyst documented in this encounter Care Teams Smokehouse Worker Relationship Specialty Start Date End Date Zina Monroy DO PCP - General 05/27/19 08/05/20 documented as of this encounter
--- OUTSIDE RECORDS SUMMARY | 2024-12-08 15:32 | XMS_ITS | Encounter Summary ---
Author Organization [facility] Address [address] [place] [address] Care Team Providers Care Deputy United [place] Marshal Name Role Phone Zina Monroy Primary Care Provider [phone] Encounter Details Date Type Department Care Team (Late st Contact Info) Description 07/31/2019 11:45 EDT Phlebotomy Only [facility] Obstetrics & Midwifery - [address] [address] [facility], [facility] Social History Tobacco Use Types Packs/Day Years [...] documented in this encounter Progress Notes * Delphine Morales - 07/31/2019 1145 EDT Patient picked up her Maternal Cell Free DNA lab slip and kit today. documented in this encounter Plan of Treatment Upcoming Encounters Date Type Department Care Team (Late st Contact Info) Description 12/11/2024 9:25 EST Hospital Encounter [facility] OR [address] [place] [address] [phone] Celeste Cooper MD [address] [place] [phone] 12/11/2024 9:25 EST - 12/11/2024 11:40 EST Surgery [facility] OR [address] [place] [address] [phone] Celeste Cooper MD [address] [place] [phone] Laparoscopic left ovarian cystectomy [83830 (CPT??)] 12/31/2024 16:15 EST Post-op Visit [facility] OBGYN Services - [address] [phone] Jessika Upton MD [address] [place] [phone] 02/06/2025 13:10 EDT Appointment [facility] O[facility]YN Services [address] [phone] 03/05/2025 8:40 EDT Office Visit [facility] Rheumatology & Immunology - [address] [phone] Nikolay Elizabeth MD MPH [address] [place] [address], Level [address] [place] [phone] Scheduled Procedures Name Priority Associated Diagnoses Date/Ti me LAPAROSCOPY, WITH EXCISION O R FULGURATION OF LESIONS OF OVARY, PELVIC VISCERA, OR PERITONEAL SURFACE Cyst of left ovary 12/11/2024 9:25 EST documented as of this encounter Visit Diagnoses Not on filedocumented in this encounter Care Teams Deputy United States Marshal Relationship Specialty Start Date End Date Zina Monroy DO PCP - General 05/27/19 08/05/20 documented as of this encounter
--- OUTSIDE RECORDS SUMMARY | 2024-12-08 15:32 | XMS_ITS | Encounter Summary ---
Author Organization [facility] Address [address] [place] [address] Care Team Providers Care Underwear Cutter Name Role Phone IleanaZina mora Ashli PERKINS Primary Care Provider [phone] Reason for Referral * Laboratory Services (Routine) - New Request Specialty Diagnoses / Procedures Referred By Contac t Referred To Contact Diagnoses of unknown anatomic location Procedures QUANT BETA HCG, Celeste Cooper MD Phone: tel: fax: Referral ID Status Reason Start Date Expiration Date V isits Requested Visits Authorized [id number] New Request 05/27/2019 1 1 Reason for Visit * Reason Onset Date Comments Results 05/27/2019 Encounter Details Date Type Department Care Team (Late st Contact Info) Description 05/27/2019 Telephone [facility] OBGYN Services - [facility] [address] [place] [address] Evelyn Grajeda, MYA Results Social History Tobacco Use Types Packs/Day [...] Telephone Encounter - Evelyn Singer RN - 05/28/2019 0859 EDT Order faxed to [facility]. * Telephone Encounter - Evelyn Singer RN - 05/27/2019 1659 EDT Spoke with Ulises and let her know that her Beta HCG was 51. [facility] Pt states she would like to go to [facility] on 05/29. Will fax order. Ectopic precautions: If you have vaginal bleeding that soaks 2 maxipad (or superplus tampon)/hr >2hrs in a row, pass blood clots >= size of james, experience dizziness, lightheadedness, SOB, severe abdominal pain not helped with medication, or new onset shoulder or back pain, then you shouldhave someone take you to the ER. Please call us with any concerns or questions. RN PHYSICIAN OFFICE nurse line [phone], or after hours MD line [phone]. Pt states understanding with no further questions or concerns at this time. documented in this encounter Plan of Treatment Upcoming Encounters Date Type Department Care Team (Late st Contact Info) Description 12/11/2024 9:25 EST Hospital Encounter [facility] OR [address] [place] [address] Celeste Cooper MD 111 [facility], Level [address] [place] [phone] 12/11/2024 9:25 EST - 12/11/2024 11:40 EST Surgery [facility] OR [address] [place] [address] [phone] Celeste Cooper MD [address] [place] [address], [facility] 4 [place] [phone] Laparoscopic left ovarian cystectomy [28728 (CPT??)] 12/31/2024 16:15 EST Post-op Visit [facility] OBG[facility] Services [address] [phone] Jessika Upton MD [address] [place] [phone] 02/06/2025 13:10 EDT Appointment [facility] OBGYN Services [address] [phone] 03/05/2025 8:40 EDT Office Visit [facility] Rheumatology & Immunology [address] [phone] Nikolay Elizabeth MD [address], [facility] 5 [place] [phone] Scheduled Orders Name Type Priority Associated Diagnoses Orde r Schedule QUANT BETA HCG, Lab Routine of unknown anatomic location Expected: 05/27/2019 (Approximate), Expires: 05/27/2020 Scheduled Procedures Name Priority Associated Diagnoses Date/Ti me LAPAROSCOPY, WITH EXCISION O R FULGURATION OF LESIONS OF OVARY, PELVIC VISCERA, OR PERITONEAL SURFACE Cyst of left ovary 12/11/2024 9:25 EST documented as of this encounter Visit Diagnoses Diagnosis of unknown anatomic location- Primary state, incidental Cyst of left ovary Other and unspecified ovarian cyst documented in this encounter Care Teams Underwear Cutter Relationship Specialty Start Date End Date Zina Monroy DO PCP - General 05/27/19 08/05/20 documented as of this encounter
--- OUTSIDE RECORDS SUMMARY | 2024-12-08 15:32 | XMS_ITS | Encounter Summary ---
Author Organization [facility] Address [address] [place] [address] Care Team Providers Care Die Cutter Diamond Name Role Phone Zina Monroy Primary Care Provider [phone] Reason for Visit * Reason Onset Date Comments Prior Auth, Medication 07/15/2019 Diclegis denied Encounter Details Date Type Department Care Team (Late st Contact Info) Description 07/15/[address] [facility] OBGYN Services - [address] [address] Miracle López RN Prior Auth, Medication (Diclegis denied) Social History Tobacco Use Types Packs/Day Years [...] Miscellaneous Notes * Telephone Encounter - Miracle López RN - 07/17/2019 1510 EDT TC to [facility] and advised pharmacist that insurance has denied Diclegis. * Telephone Encounter - Rosalinda David - 07/17/2019 1227 EDT [facility] is calling to check on the prior authorization for the patient's medication. [phone] * Telephone Encounter - Miracle López RN - 07/15/2019 1510 EDT TC to [facility] at 10+3 weeks to let her know that insurance has denied coverage for Diclegis. No answer. LM to call OB nurse triage line if she would like information on taking Vit B6/doxylamine separately. documented in this encounter Plan of Treatment Upcoming Encounters Date Type Department Care Team (Late st Contact Info) Description 12/11/2024 9:25 EST Hospital Encounter [facility] OR [address] [place] [address] [phone] Celeste Cooper MD [address] [place] [address], [facility] [address] [place] [phone] 12/11/2024 9:25 EST - 12/11/2024 11:40 EST Surgery [facility] OR [address] [place] [address] [phone] Celeste Cooper MD [address] [place] [address], [facility] [address] [place] [phone] Laparoscopic left ovarian cystectomy [86407 (CPT??)] 12/31/2024 16:15 EST Post-op Visit [facility] OBGYN Services [address] 167921 Jessika Upton MD [address] [place] [phone] 02/06/2025 13:10 EDT Appointment [facility] OBGYN Services [address] 152391 03/05/2025 8:40 EDT Office Visit [facility] Rheumatology & Immunology [address] 570901 Nikolay Elizabeth MD [address], Level 5 [place] [phone] Scheduled Procedures Name Priority Associated Diagnoses Date/Ti me LAPAROSCOPY, WITH EXCISION O R FULGURATION OF LESIONS OF OVARY, PELVIC VISCERA, OR PERITONEAL SURFACE Cyst of left ovary 12/11/2024 9:25 EST documented as of this encounter Visit Diagnoses Not on filedocumented in this encounter Care Teams Die Cutter Diamond Relationship Specialty Start Date End Date Zina Monroy DO PCP - General 05/27/19 08/05/20 documented as of this encounter
--- OUTSIDE RECORDS SUMMARY | 2024-12-08 15:32 | XMS_ITS | Encounter Summary ---
Author Organization Health system Address [address] [place] [address] Care Team Providers Care Gold Cutter Name Role Phone Zina Monroy Primary Care Provider [phone] Encounter Details Date Type Department Care Team (Late st Contact Info) Description 07/31/2019 12:13 EDT - 07/31/2019 23:59 EDT Hospital Encounter [address] [address] Mariluz Hancock NP [facility] 111 [facility], Level 4 [place] [address] Discharge Disposition: Auto Discharge Social [...] documented in this encounter Discharge Diagnoses Diagnosis Z34.81 Encounter for supervision of other normal , first trimester-Z34.81[ICD-10-CM] Z36.0 Encounter for screening for chromosomal anomalies-Z36.0[ICD-10-CM] documented in this encounter Medications at Time [...] (Late st Contact Info) Description 12/11/2024 9:25 [facility] Hospital Encounter [facility] OR [address] [place], [place] [phone] Celeste Cooper MD 111 [facility], [facility], Level 4 [place] [address] 12/11/2024 9:25 EST - 12/11/2024 11:[address] [facility] OR [address] [place] [address] [phone] Celeste Cooper MD [address] [place] [address] Level 4 [place] [phone] Laparoscopic left ovarian cystectomy [50293 (CPT??)] 12/31/2024 16:15 EST Post-op Visit [facility] OBGYN Services [address] [phone] Jessika Upton MD [address] [place] [address] [phone] 02/06/2025 13:10 EDT Appointment [facility] [address] [phone] 03/05/2025 8:40 EDT Office Visit [facility] Rheumatology & Immunology - [address] [phone] Nikolay Elizabeth MD MPH [address] [place] [address], [facility] 5 [place] [phone] Scheduled Procedures Name Priority Associated Diagnoses Date/Ti me LAPAROSCOPY, WITH EXCISION O R FULGURATION OF LESIONS OF OVARY, PELVIC VISCERA, OR PERITONEAL SURFACE Cyst of left ovary 12/11/2024 9:25 EST documented as of this encounter Procedures Procedure Name Priority Date/Time Associated Diagnosis Comments PATHOLOGY - SCANNED 08/21/2019 1 9:58 EDT REFERRAL TEST 1 Routine 07/31/2019 12:37 EDT documented in this encounter Results * PATHOLOGY - SCANNED (08/21/2019 19:58 EDT) 08/21/2019 19:5 8 EDT us Scan 2 [employer] LAB INFO SERVICE AND SUPPOR T & PHONE RESULT Final Result * REFERRAL TEST 1 (07/31/2019 12:37 EDT) Test Name MYRIAD PREQUEL SCREEN 07/31/2019 13:54 EDT [facility] Result See Pathology Scanned Report in EPIC. 08/22/2019 10:33 EDT [facility] Comment:[facility], [place], [place] Ref Lab MYRIAD 07/31/2019 13:54 EDT [facility] Date Sample Shipped [phone] 07/31/2019 13:54 EDT [facility] TOPOGRAPHY UNKNOWN / Unknown 07/31/2019 12:37 EDT 07/31/2019 13:48 EDT us Mariluz Hancock FILLER SHREDDING MACHINE LOADER M LAB INFO SERVICE AND SUPPORT & PHONE RESULT Final Result [facility] [address] [place] [address] documented in this encounter Visit Diagnoses Not on filedocumented in this encounter Care Teams Gold Cutter Relationship Specialty Start Date End Date Zina Monroy DO PCP - General 05/27/19 08/05/20 documented as of this encounter
--- OUTSIDE RECORDS SUMMARY | 2024-12-08 15:32 | XMS_ITS | Encounter Summary ---
Author Organization [facility] Address [address] [place] [address] Care Team Providers Care Transcribing Operator Head Name Role Phone Zina Monroy Primary Care Provider [phone] Reason for Visit * Reason Comments Routine Visit Encounter Details Date Type Department Care Team (Late st Contact Info) Description 11/18/2019 14:45 EST Routine [facility] OBGYN Services - [address] [phone] Elizabeth [place] NP [facility] 111 [facility], Level 4 [place] [address] GA: 28w3d Social History Tobacco Use Types Packs/Day Years [...] Sign Reading Time Taken Comments Blood Pressure 114/67 11/18/2019 1501 EST Pulse - - Temperature - - Respiratory Rate - - Oxygen Saturation - - Inhaled Oxygen Concentration - - Weight 81.2 kg (179 lb) 11/18/2019 1501 EST Height 157.5 cm (5' 2.01) 11/18/2019 1501 EST Body Mass Index 32.73 11/18/2019 1501 EST documented in this encounter [...] Progress Notes * Elizabeth [place]rick CNM - 11/18/2019 1445 EST S: [facility] is here today for a visit at 28w3d. Could not afford to go to chiropractor Considering [facility] for Ped Denies bleeding, loss of fluid or painful contractions. + FM. O: Vitals: BP: 114/67 Height: 157.5 cm (62.01) Weight : 81.2 kg (179 lb) BMI: 32.8 Fundal Height (cm): 31 cm Heart Rate: 158 Movement: Present A: 24 y.o. at 28w3d IUP O pos Chronic LBP Rubella NI Slight anemia P: Discuss PT for back - lives in [place] Discuss increasing Fe in diet and taking ferrous gluconate Watch FH Follow up in 2 wks, offer TDaP then documented in this encounter Plan of Treatment Upcoming Encounters Date Type Department Care Team (Late st Contact Info) Description 12/11/2024 9:25 EST Hospital Encounter [facility] OR [address] [place], [place] [phone] Celeste Cooper MD 111 [facility], [facility], Level 4 [place] [address] 12/11/2024 9:25 EST - 12/11/2024 11:40 EST Surgery [facility] OR [address] [place] [address] [phone] Celeste Cooper MD [address] [place] [address] 4 [place] [phone] Laparoscopic left ovarian cystectomy [31888 (CPT??)] 12/31/2024 16:15 EST Post-op Visit [facility] OBGYN Services - [address] [phone] Jessika Upton MD [address] [place] [phone] 02/06/2025 13:10 EDT Appointment [facility] [address] [phone] 03/05/2025 8:40 EDT Office Visit [facility] Rheumatology & Immunology [address] [phone] Nikolay Elizabeth MD [address], [facility] 5 [place] [phone] Scheduled Procedures Name Priority Associated Diagnoses Date/Ti me LAPAROSCOPY, WITH EXCISION O R FULGURATION OF LESIONS OF OVARY, PELVIC VISCERA, OR PERITONEAL SURFACE Cyst of left ovary 12/11/2024 9:25 EST documented as of this encounter Visit Diagnoses Diagnosis Encounter for supervision of normal first in third trimester- Primary Supervision of normal first Cyst of left ovary Other and unspecified ovarian cyst documented in this encounter Historical Medications * This list may reflect changes made after this encounter. acetaminophen (TYLENOL) 500 mg tablet Take 500 mg by mouth every 6 hours as needed for Pain. 02/02/2020 added in this encounter Care Teams Transcribing Operator Head Relationship Specialty Start Date End Date Zina Monroy DO PCP - General 05/27/19 08/05/20 documented as of this encounter
--- OUTSIDE RECORDS SUMMARY | 2024-12-08 15:32 | XMS_ITS | Encounter Summary ---
Author Organization [facility] Address [address] [place] [address] Care Team Providers Care Finishing Room Supervisor Name Role Phone Zina Monroy Primary Care Provider [phone] Reason for Visit * Reason Onset Date Comments Pre-visit Orders 10/21/2019 Encounter Details Date Type Department Care Team (Late st Contact Info) Description 10/21/2019 Orders Only [facility] OBGYN Services - [address] [phone] Elizabeth [place] NP [facility] 111 [facility], Level 4 [place] [address] Need for prophylactic vaccination and inoculation against influenza (Primary Dx); Encounter for supervision of other normal in second trimester; Need for tuvzkhpdif-olbixzt-inl tussis (Tdap) vaccine Social History Tobacco Use Types Packs/Day Years [...] Description 12/11/2024 9:25 EST Hospital Encounter [facility] OR [address] [place] [address] [phone] Celeste Cooper MD [address] [place] [phone] 12/11/2024 9:25 EST - 12/11/2024 11:40 EST Surgery [facility] OR [address] [place] [address] [phone] Celeste Cooper MD [address] [place] [address] [phone] Laparoscopic left ovarian cystectomy [16707 (CPT??)] 12/31/2024 16:15 EST Post-op Visit [facility] OBGYN Services [address] [phone] Jessika Upton MD [address] [place] [phone] 02/06/2025 13:10 EDT Appointment [facility] OBGYN Services [address] 742121 03/05/2025 8:40 EDT Office Visit [facility] Rheumatology & Immunology [address] [address] Nikolay Elizabeth MD MPH 111 [facility], [facility] 5 [place] [phone] Scheduled Procedures Name Priority Associated Diagnoses Date/Ti me LAPAROSCOPY, WITH EXCISION O R FULGURATION OF LESIONS OF OVARY, PELVIC VISCERA, OR PERITONEAL SURFACE Cyst of left ovary 12/11/2024 9:25 EST documented as of this encounter Results * RUBELLA IGG ANTIBODY (11/12/2019 15:25 EST) Rubella IgG Ab Negative See Note 11/13/2019 10:22 EST [facility] Comment:Sample is consideree d negative for IgG antibodies to Rubella virus. A negative result presumes that immunity has not been acquired. If exposure to Rubella virus is suspected despite a negative finding, a second specimen should be collected and tested for Rubella IgG Ab one or two weeks later. Blood VENOUS BLOOD / Unknown Venipuncture / Unknown 11/12/2019 15:25 EST 11/12/2019 15:52 EST us Elizabeth Kendrick NP [facility] CHEMISTRY & BLOOD GAS ORD ERABLES Final Result Performing Organization Address City/[facility]/ZIP Co de Phone Number [facility] [address] [place] [address] * GLUCOSE-1HR GESTATIONAL SCREEN (11/12/2019 15:25 EST) Glucose-1hr Gest Scn 109 50 - 134 mg/dL 11/12/2019 16:23 EST [facility] Glucose Dose 50 grams 11/12/2019 16:23 EST [facility] Blood VENOUS BLOOD / Unknown Venipuncture / Unknown 11/12/2019 15:25 EST 11/12/2019 15:51 EST us Elizabeth Kendrick NP [facility] CHEMISTRY & BLOOD GAS ORD ERABLES Final Result [facility] [address] [place] [address] * (ABNORMAL) COMPLETE BLOOD COUNT (11/12/2019 15:25 EST) WBC 12.77(H) 4.00 - 12.40 K/cmm 11/12/2019 16:17 [facility] RBC 3.89 3.86 - 5.04 M/cmm 11/12/2019 16:17 [facility] Hemoglobin 10.8(L) 11.6 - 15.2 gm/dL 11/12/2019 16:17 [facility] HCT 32.2(L) 34.9 - 44.4 % 11/12/2019 16:17 [facility] MCV 83 81 - 98 fl 11/12/2019 16:17 [facility] MCH 27.8 26.7 - 33.3 pg 11/12/2019 16:17 [facility] MCHC 33.5 32.1 - 35.9 gm/dL 11/12/2019 16:17 [facility] RDW-CV 12.5 <14.7 % 11/12/2019 16:17 [facility] RDW-SD 38.0 <50.4 fl 11/12/2019 16:17 [facility] PLT 272 141 - 377 K/cmm 11/12/2019 16:17 [facility] MPV 10.7 9.5 - 12.7 fl 11/12/2019 16:17 [facility] Blood VENOUS BLOOD / Unknown Venipuncture / Unknown 11/12/2019 15:25 EST 11/12/2019 16:01 EST us Elizabeth Kendrick NP CNM HEMATOLOGY & PF4 ORDERABL ES Final Result [facility] [address] [place] [address] documented in this encounter Visit Diagnoses Diagnosis Need for prophylactic vaccination and inoculation against influenza- Primary Encounter for supervision of other normal in second trimester Need for pvizoxpuhj-swtfghg-ijshpjsnh (Tdap) vaccine Need for prophylactic vaccination with combined ibsotaoqam-yscogvj-wcmrmasqz (DTP) vaccine Cyst of left ovary Other and unspecified ovarian cyst documented in this encounter Orders Immunization/Injection Count Last Ordered Date First Ordered Date TDAP VACCINE =>7YO IM 1 12/02/2019 INFLUENZA VACCINE QUAD (FLULAVAL/FLUARIX/FLUZONE) PF 0.5 ML IM (6 MOS+) 1 10/21/2019 documented in this encounter Care Teams Finishing Room Supervisor Relationship Specialty Start Date End Date Zina Monroy DO PCP - General 05/27/19 08/05/20 documented as of this encounter
--- OUTSIDE RECORDS SUMMARY | 2024-12-08 15:32 | XMS_ITS | Encounter Summary ---
Author Organization [facility] Address [address] [place] [address] Care Team Providers Care Dining Room Coordinator Name Role Phone Zina Monroy Primary Care Provider [phone] Reason for Visit * Reason Onset Date Comments Results 07/05/2019 Encounter Details Date Type Department Care Team (Late st Contact Info) Description 07/05/2019 Telephone [facility] OBGYN Services - [address] [address] Kasia Mckenzie, MYA Results Social History Tobacco Use Types [...] Miscellaneous Notes * Telephone Encounter - Kasia Mcknezie RN - 07/05/2019 0929 EDT Received Pap results from 2017. Entered into results console, copy placed in blue folder for chart prep. documented in this encounter Plan of Treatment Upcoming Encounters Date Type Department Care Team (Late st Contact Info) Description 12/11/2024 9:25 EST Hospital Encounter [facility] OR [address] [place] [address] [phone] Celeste Cooper MD [address] [place] [address] 4 [place] [phone] 12/11/2024 9:25 EST - 12/11/2024 11:40 EST Surgery [facility] OR [address] [place] [address] [phone] Celeste Cooper MD [address] [place] [address] 4 [place] [phone] Laparoscopic left ovarian cystectomy [78032 (CPT??)] 12/31/2024 16:15 EST Post-op Visit [facility] OBGYN Services [address] [phone] Jessika Upton MD [address] [place] [phone] 02/06/2025 13:10 EDT Appointment [facility] OBGYN Services [address] [phone] 03/05/2025 8:40 EDT Office Visit [facility] Rheumatology & Immunology - [address] [phone] Nikolay Elizabeth MD MPH 111 [facility], Level 5 [place] [address] Scheduled Procedures Name Priority Associated Diagnoses Date/Ti me LAPAROSCOPY, WITH EXCISION O R FULGURATION OF LESIONS OF OVARY, PELVIC VISCERA, OR PERITONEAL SURFACE Cyst of left ovary 12/11/2024 9:25 EST documented as of this encounter Procedures Procedure Name Priority Date/Time Associated Diagnosis Comments ZZPAP TEST- ORDER ONLY Routine 08/09/2017 documented in this encounter Results * PAP TEST- ORDER ONLY (08/09/2017) Comment ASCUS, negative HPV POINT OF CARE [facility] Comment:[facility] Body fluid specimen (specimen) us Historical Provider PATHOLOGY ORDERABLES Юлия l Result POINT [facility] CARE [facility] documented in this encounter Visit Diagnoses Not on filedocumented in this encounter Care Teams Dining Room Coordinator Relationship Specialty Start Date End Date Zina Monroy DO PCP - General 05/27/19 08/05/20 documented as of this encounter
--- OUTSIDE RECORDS SUMMARY | 2024-12-08 15:32 | XMS_ITS | Encounter Summary ---
Author Organization [facility] Address [address] [place] [address] Care Team Providers Care Human Resources Partner Name Role Phone Zina Monroy Primary Care Provider [phone] Encounter Details Date Type Department Care Team (Late st Contact Info) Description 05/31/2019 Historical Results Only [facility] - [address] [address] Charlee Mclaughlin MD 111 [facility], Level 4 [place] [address] Social History Tobacco Use Types Packs/Day Years Used Date Smoking Tobacco: Never Smokeless Tobacco: Never AUDIT-C Answer Date Recorded Frequency of Alcohol [...] Info) Description 12/11/2024 9:25 EST Hospital Encounter [facility] OR [address] [place] [address] [phone] Celeste Cooper MD [address] [place] [address] 4 [place] [phone] 12/11/2024 9:25 EST - 12/11/2024 11:40 EST Surgery [facility] OR [address] [place] [address] [phone] Celeste Cooper MD [address] [place] [phone] Laparoscopic left ovarian cystectomy [52919 (CPT??)] 12/31/2024 16:15 EST Post-op Visit [facility] OBGYN Services - [address] [phone] Jessika Upton MD [address] [place] [phone] 02/06/2025 13:10 EDT Appointment [facility] OBGYN Services - [address] [phone] 03/05/2025 8:40 EDT Office Visit [facility] Rheumatology & Immunology - [address] [phone] Nikolay Elizabeth MD MPH [address] [place] [phone] Scheduled Procedures Name Priority Associated Diagnoses Date/Ti me LAPAROSCOPY, WITH EXCISION O R FULGURATION OF LESIONS OF OVARY, PELVIC VISCERA, OR PERITONEAL SURFACE Cyst of left ovary 12/11/2024 9:25 EST documented as of this encounter Procedures Procedure Name Priority Date/Time Associated Diagnosis Comments BETA-HCG QUANT(WITH DILUT) - [facility] [place] Routine 05/31/2019 12:10 EDT documented in this encounter Results * (ABNORMAL) BETA-HCG QUANT(WITH DILUT) [place] [facility] (05/31/2019 12:10 EDT) BETA-HCG QUANTITATIVE 244(H) <5 mIU/mL 05/31/2019 14:01 EDT [facility] Comment: Negative: ?< 5 Indeterminate: 5-25 (repeated in 48 hrs) Positive: ?> 25 The results of this assay can be falsely lowered due to the consumption of Biotin. 05/31/2019 12:1 0 EDT 05/31/2019 12:10 EDT Narrative [facility] - 05/31/2019 14:01 EDT Does PT Have a Latex Allergy? NO Enter/Edit CPT and ICD codes? N us Charlee Mclaughlin MD CHEMISTRY & BLOOD GAS OR DERABLES Final Result [facility] documented in this encounter Visit Diagnoses Not on filedocumented in this encounter Care Teams Human Resources Partner Relationship Specialty Start Date End Date Zina Monroy DO PCP - General 05/27/19 08/05/20 documented as of this encounter
--- OUTSIDE RECORDS SUMMARY | 2024-12-08 15:32 | XMS_ITS | Encounter Summary ---
Author Organization [facility] Address [address] [place] [address] Care Team Providers Care [employer] Emergency Services Manager Name Role Phone Zina Monroy Primary Care Provider [phone] Reason for Visit * Reason Onset Date Comments Ultrasound 06/03/2019 Encounter Details Date Type Department Care Team (Late st Contact Info) Description 06/03/2019 Telephone [facility] OBGYN Services - [address] [address] Lizy Alicea RN Ultrasound Social History Tobacco Use Types Packs/Day Years [...] encounter Miscellaneous Notes * Telephone Encounter - Lizy Alicea RN - 06/03/2019 1043 EDT TVUS scheduled 06/12/19 @ 1120. Non-identified VM, left general message: nurse calling from [facility]???[facility] clinic, re: U/S appt., this is scheduled for 06/12/19 @ 1120am, arrive 10-15 min prior to check in. Please call the ROOF PAINTER nursesat [phone] to confirm received message re: U/S appt. documented in this encounter Plan of Treatment Upcoming Encounters Date Type Department Care Team (Late st Contact Info) Description 12/11/2024 9:25 EST Hospital Encounter [facility] OR [address] [place] [address] [phone] Celeste Cooper MD [address] [place] [phone] 12/11/2024 9:25 EST - 12/11/2024 11:40 EST Surgery [facility] OR [address] [place] [address] 727791 Celeste Cooper MD [address] [place] [address] [phone] Laparoscopic left ovarian cystectomy [81208 (CPT??)] 12/31/2024 16:15 EST Post-op Visit [facility] OBG[facility] Services [address] [phone] Jessika Upton MD [address] [place] [phone] 02/06/2025 13:10 EDT Appointment [facility] [address] [phone] 03/05/2025 8:40 EDT Office Visit [facility] Rheumatology & Immunology [address] [address] Nikolay Elizabeth MD MPH 111 [facility], Level 5 [place] [phone] Scheduled Procedures Name Priority Associated Diagnoses Date/Ti me LAPAROSCOPY, WITH EXCISION O R FULGURATION OF LESIONS OF OVARY, PELVIC VISCERA, OR PERITONEAL SURFACE Cyst of left ovary 12/11/2024 9:25 EST documented as of this encounter Visit Diagnoses Not on filedocumented in this encounter Care Teams Railroad Emergency Services Manager Relationship Specialty Start Date End Date Zina Monroy DO PCP - General 05/27/19 08/05/20 documented as of this encounter
--- OUTSIDE RECORDS SUMMARY | 2024-12-08 15:32 | XMS_ITS | Encounter Summary ---
Author Organization [facility] Address [address] [place] [address] Care Team Providers Care Statistical Geneticist Name Role Phone Zina Monroy DO Primary Care Provider [phone] Reason for Visit * Reason Onset Date Comments Nausea 06/14/2019 Encounter Details Date Type Department Care Team (Late st Contact Info) Description 06/14/2019 Telephone [facility] Obstetrics & Midwifery - [address] [address] Layne Rey RN Nausea Social History Tobacco Use Types Packs/Day [...] 02/15/2018 14:07 EDT documented in this encounter Ordered Prescriptions Prescription Sig Dispense Quantity Refills Last Filled Start Date End Date ondansetron (ZOFRAN-ODT) 4 mg disintegrating tablet Take 1 Tab by mouth every 8 hours as needed for Nausea. 30 Tab 2 06/14/2019 0 documented in this encounter Miscellaneous Notes * Telephone Encounter - Layne Rey RN - 06/14/2019 [id number] EDT VM from Bob White at 6+0 weeks, requesting a Rx for Zofran. TC to Bob White, who has had nausea the past few days, lasts all day, vomits a few times every day. Failed B6/Unisom and Zofran last ,was treating nausea with Promethazine suppositories several times a day. Had some leftover Zofran, and has been taking it Q 8-10 hours, and is able to keep down fluids for the most part and food. Discussed with Mariana Conroy, who indicates to order Zofran for Bob White. TC to Bob White, ordered and sent to [facility] in [place] and [place] submitted to [facility]. Bob White verbalized understanding and did not have further concerns. documented in this encounter Plan of Treatment Upcoming Encounters Date Type Department Care Team (Late st Contact Info) Description 12/11/2024 9:25 EST Hospital Encounter [facility] OR [address] [place] [phone] Celeste Cooper MD [address] [place] [address], [facility] [address] [place] [phone] 12/11/2024 9:25 EST - 12/11/2024 11:40 EST Surgery [facility] OR [address] [place] [address] [phone] Celeste Cooper MD [address] [place] [phone] Laparoscopic left ovarian cystectomy [36889 (CPT??)] 12/31/2024 16:15 EST Post-op Visit [facility] OBGYN Services - [address] [address] Jessika Upton MD [address] [place] [phone] 02/06/2025 13:10 EDT Appointment [facility] OBGYN Services [address] [address] 03/05/2025 8:40 EDT Office Visit [facility] Rheumatology & Immunology [address] [phone] Nikolay Elizabeth MD MPH [address] [facility], Level [address] [place] [phone] Scheduled Procedures Name Priority Associated Diagnoses Date/Ti me LAPAROSCOPY, WITH EXCISION O R FULGURATION OF LESIONS OF OVARY, PELVIC VISCERA, OR PERITONEAL SURFACE Cyst of left ovary 12/11/2024 9:25 EST documented as of this encounter Visit Diagnoses Not on filedocumented in this encounter Care Teams Statistical Geneticist Relationship Specialty Start Date End Date Zina Monroy DO PCP - General 05/27/19 08/05/20 documented as of this encounter
--- OUTSIDE RECORDS SUMMARY | 2024-12-08 15:32 | XMS_ITS | Encounter Summary ---
Author Organization [facility] Address [address] [place] [address] Care Team Providers Care Fruit Preserver Name Role Phone Zina Monroy Primary Care Provider [phone] Encounter Details Date Type Department Care Team (Late st Contact Info) Description 07/31/2019 Phlebotomy Only [facility] - [address] [address] Horticultural Technical Officer, Outpatient Supervision of normal intrauterine in multigravida in first trimester (Primary Dx) Social History Tobacco Use [...] Description 12/11/2024 9:25 EST Hospital Encounter [facility] OR [address] [place] [address] [phone] Celeste Cooper MD [address] [place] [address] [address] [place] [phone] 12/11/2024 9:25 EST - 12/11/2024 11:40 EST Surgery [facility] OR [address] [place] [phone] Celeste Cooper MD [address] [place] [phone] Laparoscopic left ovarian cystectomy [26213 (CPT??)] 12/31/2024 16:15 EST Post-op Visit [facility] OBGYN Services - [address] [phone] Jessika Upton MD [address] [place] [phone] 02/06/2025 13:10 EDT Appointment [facility] OBGYN Services - [address] [phone] 03/05/2025 8:40 EDT Office Visit [facility] Rheumatology & Immunology - [address] [phone] Nikolay Elizabeth MD MPH [address] [place] [address] [address] [place] [phone] Scheduled Procedures Name Priority Associated Diagnoses Date/Ti me LAPAROSCOPY, WITH EXCISION O R FULGURATION OF LESIONS OF OVARY, PELVIC VISCERA, OR PERITONEAL SURFACE Cyst of left ovary 12/11/2024 9:25 EST documented as of this encounter Procedures Procedure Name Priority Date/Time Associated Diagnosis Comments PROFILE AND VARICELLA Routine 07/31/2019 12:41 EDT Supervision of normal intrauterine in multigravida in first trimester HIV 1/2 ANTIGEN AND ANTIBODY, 4TH GENERATION Routine 07/31/2019 12:41 EDT Supervision of normal intrauterine in multigravida in first trimester documented in this encounter Results * HIV 1/2 ANTIGEN AND ANTIBODY, 4TH GENERATION (07/31/2019 12:41 EDT) HIV 1/2 Antibody Negative Negative 07/31/20 19 15:16 EDT [facility] Comment: Fourth generation assay performed on the VesLabsaur. If acute HIV-1 infection is suspected in a high risk patient, submit plasma specimen for HIV-1 RNA quantification test. Blood specimen (specimen) BLOOD SPECIMEN / Unknown 07/31/2019 12:41 EDT 07/31/2019 12:51 EDT Mariluz Hancock ADDICTION THERAPIST CNM IMMUNOLOGY AND SE ROLOGY ORDERABLES Final Result [facility] [address] [place] [address] * (ABNORMAL) PROFILE AND VARICELLA (07/31/2019 12:41 EDT) ABO and Rh Type O POS 9 17:01 EDT [facility] Antibody Screen Neg 9 17:01 T [facility] Rubells IgG Ab Equivocal 08/01/2019 10:30 [facility] Comment: Recommend collecting a second sample for testing in no less than one to two weeks. WBC 11.28 4.0 - 12.4 K/cmm 07/31/2019 13:02 T [facility] RBC 4.42 3.86 - 5.04 M/cmm 07/31/2019 13:02 [facility] Hemoglobin 12.6 11.6 - 15.2 gm/dl 07/31/2019 13:02 [facility] HCT 37.0 34.9 - 44.4 % 07/31/2019 13:02 [facility] MCV 84 81 - 98 fl 07/31/2019 13:02 [facility] MCH 28.5 26.7 - 33.3 pg 07/31/2019 13:02 [facility] MCHC 34.1 32.1 - 35.9 gm/dl 07/31/2019 13:02 [facility] RDW-CV 13.1 <14.7 % 07/31/2019 13:02 [facility] RDW-SD 40.3 <50.4 fl 07/31/2019 13:02 [facility] PLT 258 141 - 377 K/cm 07/31/2019 13:02 [facility] MPV 10.6 9.5 - 12.7 fl 07/31/2019 13:02 [facility] Hepatitis B Surface Antigen Negative Negative 07/31/2019 14:46 [facility] % Neutrophils 71.9 % 07/31/2019 13:02 [facility] % Lymphocytes 20.1 % 07/31/2019 13:02 [facility] % Monocytes 6.3 % 07/31/2019 13:02 [facility] % Eosinophils 0.7 % 07/31/2019 13:02 [facility] % Basophils 0.4 % 07/31/2019 13:02 [facility] % Immature Grans 0.6 % 07/31/2019 13:02 [facility] ABS Neutrophils 8.11 2.20 - 8.85 K/cmm 07/31/2019 13:02 [facility] ABS Lymphs 2.27 1.09 - 3.30 K/cmm 07/31/2019 13:02 [facility] ABS Monocytes 0.71 0.1 - 0.8 K/cmm 07/31/2019 13:02 [facility] ABS Eosinophils 0.08 0.03 - 0.61 K/cmm 07/31/2019 13:02 EDT [facility] ABS Basophils 0.04 0.01 - 0.11 K/cmm 07/31/2019 13:02 EDT [facility] ABS Immature Grans 0.07(H) 0 - 0.06 K/cmm 07/31/2019 13:02 EDT [facility] Type of Diff: Automated 07/31/2019 13:02 EDT [facility] Syphilis Serology Negative 07/31/2019 14:53 EDT [facility] Comment:Reference Range: Neg ative Varicella IgG Ab Positive 07/31/2019 14:49 EDT [facility] Comment: Presence of detectable Varicella Zoster virus IgG antibodies. Blood specimen (specimen) BLOOD SPECIMEN / Unknown 07/31/2019 12:41 EDT 07/31/2019 12:51 EDT Mariluz Hancock ADDICTION THERAPIST CNM PACKAGES & DNA UT OBE ORDERABLES Final Result [facility] [address] [place] [address] documented in this encounter Visit Diagnoses Diagnosis Supervision of normal intrauterine in multigravida in first trimester- Primary Cyst of left ovary Other and unspecified ovarian cyst documented in this encounter Care Teams Fruit Preserver Relationship Specialty Start Date End Date Zina Monroy DO PCP - General 05/27/19 08/05/20 documented as of this encounter
--- OUTSIDE RECORDS SUMMARY | 2024-12-08 15:32 | XMS_ITS | Encounter Summary ---
Author Organization [facility] Address [address] [place] [address] Care Team Providers Care Sales Route Driver Name Role Phone Rik Monroyah Ashli PERKINS Primary Care Provider [phone] Reason for Referral * SLATE TRIMMER (Routine) - New Request Specialty Diagnoses / Procedures Referred By Seema kapoor Referred To Contact Diagnoses Supervision of other normal , antepartum Procedures MCC 1ST TRIMESTER Mariluz Hancock NP CNM Phone: tel: fax: Referral ID Status Reason Start Date Expiration Date V isits Requested Visits Authorized [id number] New Request 07/03/2019 1 1 Reason for Visit * Reason Comments Initial Visit Encounter Details Date Type Department Care Team (Late st Contact Info) Description 07/03/2019 14:00 EDT Initial [facility] - [address] [id number] Mariluz Hancock NP CNM [address] [facility], Level [address] [place] [phone] GA: 8w5d Discharge Disposition: Auto Discharge Social History Tobacco [...] Sign Reading Time Taken Comments Blood Pressure 117/74 07/03/2019 1405 EDT Pulse - - Temperature - - Respiratory Rate - - Oxygen Saturation - - Inhaled Oxygen Concentration - - Weight 71.7 kg (158 lb) 07/03/2019 1405 EDT Height 157.5 cm (5' 2) 07/03/2019 1405 EDT Body Mass Index 28.9 07/03/2019 1405 EDT documented in this encounter Functional Status [...] documented in this encounter Discharge Diagnoses Diagnosis Z34.80 Encounter for supervision of other normal , unspecified trimester-Z34.80[ICD-10-CM] Z34.81 Encounter for supervision of other normal , first trimester-Z34.81[ICD-10-CM] documented in this encounter Ordered Prescriptions Prescription Sig Dispense Quantity Refills Last Filled Start Date End Date doxylamine-pyridox ine, vit B6, (DICLEGIS) 10-10 mg tablet Take 1 Tab by mouth daily. Take one tab at bedtime. Can increase to one tab at bedtime and one tab in the morning if needed. 28 Tab 1 07/03/2019 0 documented in this encounter Discharge Disposition Disposition Code Departure Means Destination Auto Discharge documented in this encounter Progress Notes * Santi Agee, Mariluz Salter CNM - 07/03/2019 1400 EDT Initial Part 1 Subjective: Ulises Duffy is a 24 y.o. female at 8w5d who presents for her care. Here withfiance French. Planned . Anxious, history of early SAB. 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 They have lots of local family and support. Current Estimated Date of Delivery: 02/07/20 based on Ultrasound. Symptoms since LMP: Patient reports nausea and vomiting managed with phenergan. Tried Zofran recently but ran out of tabs. Interested in Diclegis. Able to eat and drink throughout the day. Also reports food aversions, round ligament pain, and sciatic pain. Denies bleeding, fever or recent illness. Hx chronic low back pain, has a PT she sees and was told ' will be hell for me. Hx anxiety and depression, not currently taking meds but does have a counselor. Says last pap in Aug or Sep was ASCUS / neg HPV. Craving salty foods, eating lots of Lays chips - otherwise healthy choices including greens. No regular exercise. Denies alcohol, tobacco, or drug use. Partner had [facility] and Me testing and is neg for everything. They believe CF and SMA were included, will bring report to [place]. Patient Active Problem List Diagnosis ??? of unknown anatomic location ??? Anxiety ??? Depression ??? Abnormal Pap smear of cervix ??? Supervision of other normal Allergies Allergen Reactions ??? Novocain [Procaine] Past obstetric history reviewed and complications noted in table. Significant OB History: Early SAB x 2 Past Medical History: Diagnosis Date ??? Abnormal Pap smear of cervix ASCUS (?HPV) or 09/2019 ??? Anxiety ??? Depression ??? Depression History reviewed. No pertinent surgical history. 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 Family History Problem Relation Age of Onset ??? Hypertension Maternal Grandmother ??? Breast Cancer Maternal Grandmother 30 ??? Hypertension Maternal Grandfather ??? Depression Mother ??? Anxiety Disorder Mother ??? Depression Brother ??? Anxiety Disorder Brother ??? Anxiety Disorder Sister ??? Depression Sister Social History Socioeconomic History ??? Marital status: Single Spouse name: None ??? Number of children: None ??? Years of education: None ??? Highest education level: None Occupational History ??? None Social Needs ??? Financial resource strain: None ??? Food insecurity: Worry: None Inability: None ??? Transportation needs: Medical: None Non-medical: None Tobacco Use ??? Smoking status: Never Smoker ??? Smokeless tobacco: Never Used Substance and Sexual Activity ??? Alcohol use: No Frequency: Never ??? Drug use: No ??? Sexual activity: Yes Partners: Male Lifestyle ??? Physical activity: Days per week: None Minutes per session: None ??? Stress: None Relationships ??? Social connections: Talks on phone: None Gets together: None Attends rastafarian service: None Active member of club or organization: None Attends meetings of clubs or organizations: None Relationship status: None ??? Intimate partner violence: Fear of current or ex partner: None Emotionally abused: None Physically abused: None Forced sexual activity: None Other Topics Concern ??? None Social History Narrative ??? None Living Situation: Stable Significant Other and Good Family Support Review of Systems: Pertinent items are noted in Subjective/HPI Objective: Vitals: 07/03/19 1405 BP: 117/74 Weight: 71.7 kg (158 lb) Height: 157.5 cm (62) Body mass index is 28.9 kg/m??. Complete PE deferred until KENNEDY Part 2 No results found for this or any previous visit (from the past 672 hour(s)). Assessment: 1. IUP at 8w5d: nausea/vomiting 2. Estimated Date of Delivery: 02/07/20 based on Ultrasound. 3. Hx early SABs 4. Last pap abnormal, ASCUS 5. Chronic low back pain 6. Depression / anxiety - no meds, has a counselor Plan: 1. Problem list reviewed and updated. Oriented to CNM care at [facility]: midwifery model, 19/06 midwifery and MD coverage, work with OB residents, freq of visits, standard testing. KENNEDY packet reviewed in full. Reviewed warning signs/when to call. Diclegis ordered, call if not effective. TWG 25-30#. Encouraged regular exercise, healthy diet, abstain from tobacco/alcohol/drug use. Discussed [facility] and [facility] CNM as resources. Encouraged to continue working with her PT through , try yoga, swimming, stretching daily. 2. Aneuploidy testing: NIPT at [facility], AFP, 1st tri anatomy ultrasound. 3. Additional testing: ultrasound now for viability, pap due or 09/2019 - records release signed 4. Follow-up in 3-4 weeks, sooner PRN 100% of 60 min visit spent on counseling and coordination of care. Mariluz Hancock CNM documented in this encounter Plan of Treatment Upcoming Encounters Date Type Department Care Team (Late st Contact Info) Description 12/11/2024 9:25 EST Hospital Encounter [facility] OR [address] [place] [address] [phone] Celeste Cooper MD [address] [place] [phone] 12/11/2024 9:25 EST - 12/11/2024 11:40 EST Surgery [facility] OR [address] [place] [address] [phone] Celeste Cooper MD [address] [place] [phone] Laparoscopic left ovarian cystectomy [13755 (CPT??)] 12/31/2024 16:15 EST Post-op Visit [facility] [address] [phone] Jessika Upton MD [address] [place] [phone] 02/06/2025 13:10 EDT Appointment [facility] [address] [phone] 03/05/2025 8:40 EDT Office Visit [facility] [address] [address] Nikolay Elizabeth MD MPH [address] [facility], [address] 5 [place] [phone] Scheduled Procedures Name Priority Associated Diagnoses Date/Ti me LAPAROSCOPY, WITH EXCISION O R FULGURATION OF LESIONS OF OVARY, PELVIC VISCERA, OR PERITONEAL SURFACE Cyst of left ovary 12/11/2024 9:25 EST documented as of this encounter Procedures Procedure Name Priority Date/Time Associated Diagnosis Comments MCC 1ST TRIMESTER Routine 07/31/2019 12: 08 EDT Supervision of other normal , antepartum MCC LIMITED EXAM Routine 07/03/2019 15:5 2 EDT BACTERIAL CULTURE, URINE Routine 07/03/2019 15:27 EDT Supervision of normal intrauterine in multigravida in first trimester documented in this encounter Results * MCC 1ST TRIMESTER (07/31/2019 12:08 EDT) Anatomical Region Laterality Modality Other 07/31/2019 12:0 8 EDT 07/31/2019 12:20 EDT Narrative 07/31/2019 12:20 EDT Indication Screening. History ======= General History Height 157 cm Height (ft) ?5 ft Height (in) ?2 in Previous Outcomes ?3 Para ?? 0 Abortions (A) ??2 Maternal Assessment Height 157 cm Height (ft) ?5 ft Height (in) ?2 in Physical Exam Initial weight 72 kg Initial weight (lb) ?158 lb Initial BMI ?28.90 kg/m? Number of fetuses: 1. Dating ======= Ultrasound examination on: 07/31/2019 GA by U/S based upon: ??CRL GA by U/S ??13 w + 2 d RHODA by U/S: ?02/03/2020 Assigned: ??Dating performed on 06/12/2019, based on ultrasound (CRL) Assigned GA ?12 w + 5 d Assigned RHODA: ??02/07/2020 General Evaluation Cardiac activity: Present. Placenta: Posterior. Cord vessels: normal cord insertion, 3 vessel cord. Amniotic fluid: normal. Biometry CRL ?70.9 mm 81% 13w 2d Hadlock BPD ?22.4 mm 78% 13w 5d Hadlock FHR ?148 bpm 3% Nicolaides Anatomy Cranium: ?? normal Cranium: ?? Normal shape and size Situs: normal Situs: normal situs Cord insertion: ?normal Stomach: ?? normal Kidneys: ?? normal Bladder: ?? normal Stomach: ?? normal situs Arms: ??visualized Legs: ??visualized Maternal Structures Uterus / Cervix Uterus: ?Appears normal Cervix: ?Appears normal Ovaries / Tubes / Adnexa Rt ovary: ??Visualized, normal appearance Rt ovary D1 ?2.7 cm Rt ovary D2 ?3.2 cm Rt ovary D3 ?1.6 cm Rt ovary mean ??2.5 cm Rt ovary vol ?? 7.1 cm cubed Lt ovary: ??Visualized, normal appearance Lt ovary D1 ?4.6 cm Lt ovary D2 ?3.2 cm Lt ovary D3 ?2.8 cm Lt ovary mean ??3.5 cm Lt ovary vol ?? 21.3 cm cubed Lt ovarian cyst(s): ?Cysts identified Findings: ??Simple cyst D1 35.2 mm D2 22.6 mm D3 24.3 mm Mean ?? 27.4 mm Vol ?10.122 cm cubed Method ======== Transabdominal ultrasound examination, Voluson E10. View: Sufficient. Impression [id number] First trimester obstetrical US, transabdominal This is a alan gestation. CRL is consistent with earlier ultrasound dating. Normal first trimester anatomy as noted above including cardiac/gastric situs and 12 long bones with movement; however, first trimester sonography is limited in its ability to detect anomalies. Follow-up Follow-up as clinically indicated. DATE OF SERVICE: 07/31/2019 Procedure Note Yumiko Plummer MD, MD - 07/31/2019 Indication Screening. History ======= General History Height 157 cm Height (ft) 5 ft Height (in) 2 in Previous Outcomes 3 Para 0 Abortions (A) 2 Maternal Assessment Height 157 cm Height (ft) 5 ft Height (in) 2 in Physical Exam Initial weight 72 kg Initial weight (lb) 158 lb Initial BMI 28.90 kg/m? Number of fetuses: 1. Dating ======= Ultrasound examination on: 07/31/2019 GA by U/S based upon: CRL GA by U/S 13 w + 2 d RHODA by U/S: 02/03/2020 Assigned: Dating performed on 06/12/2019, based on ultrasound (CRL) Assigned GA 12 w + 5 d Assigned RHODA: 02/07/2020 General Evaluation Cardiac activity: Present. Placenta: Posterior. Cord vessels: normal cord insertion, 3 vessel cord. Amniotic fluid: normal. Biometry CRL 70.9 mm 81% 13w 2d Hadlock BPD 22.4 mm 78% 13w 5d Hadlock FHR 148 bpm 3% Nicolaides Anatomy Cranium: normal Cranium: Normal shape and size Situs: normal Situs: normal situs Cord insertion: normal Stomach: normal Kidneys: normal Bladder: normal Stomach: normal situs Arms: visualized Legs: visualized Maternal Structures Uterus / Cervix Uterus: Appears normal Cervix: Appears normal Ovaries / Tubes / Adnexa Rt ovary: Visualized, normal appearance Rt ovary D1 2.7 cm Rt ovary D2 3.2 cm Rt ovary D3 1.6 cm Rt ovary mean 2.5 cm Rt ovary vol 7.1 cm cubed Lt ovary: Visualized, normal appearance Lt ovary D1 4.6 cm Lt ovary D2 3.2 cm Lt ovary D3 2.8 cm Lt ovary mean 3.5 cm Lt ovary vol 21.3 cm cubed Lt ovarian cyst(s): Cysts identified Findings: Simple cyst D1 35.2 mm D2 22.6 mm D3 24.3 mm Mean 27.4 mm Vol 10.122 cm cubed Method ======== Transabdominal ultrasound examination, Voluson E10. View: Sufficient. Impression [id number] First trimester obstetrical US, transabdominal This is a alan gestation. CRL is consistent with earlier ultrasound dating. Normal first trimester anatomy as noted above including cardiac/gastric situs and 12 long bones with movement; however, first trimester sonography is limited in its ability to detect anomalies. Follow-up Follow-up as clinically indicated. DATE OF SERVICE: 07/31/2019 Mariluz Hancock NP CNM IM[facility] ORDERA BLES Final Result * [facility]CC LIMITED EXAM (07/03/2019 15:52 EDT) Anatomical Region Laterality Modality Other 07/03/2019 15:5 2 EDT 07/03/2019 16:00 EDT Narrative 07/03/2019 16:00 EDT Indication History of complications: early SAB x 2 . History ======= General History Height 157 cm [...] (lb) ?158 lb Initial BMI ?28.90 kg/m? Dating ======= Assigned: ??Dating performed on 06/12/2019, based on ultrasound (CRL) Assigned GA ?8 w + 5 d Assigned RHODA: ??02/07/2020 General Evaluation Cardiac activity: Present. FHR 171 bpm. movements: visualized. Placenta: fundal. Amniotic fluid: Amount of AF: normal. Method ======== Voluson E10, Transabdominal ultrasound examination. View: Sufficient. Impression [id number] Limited obstetrical ultrasound This is a alan gestation. The anatomy was not reviewed in detail. movement was noted. The amniotic fluid volume appears normal. Follow-up Follow-up as clinically indicated. DATE OF SERVICE: 07/03/2019 Procedure Note Lillian Brooks MD, MD - 07/03/2019 Indication History of complications: early SAB x 2 . History ======= General History Height 157 cm [...] (lb) 158 lb Initial BMI 28.90 kg/m? Dating ======= Assigned: Dating performed on 06/12/2019, based on ultrasound (CRL) Assigned GA 8 w + 5 d Assigned RHODA: 02/07/2020 General Evaluation Cardiac activity: Present. FHR 171 bpm. movements: visualized. Placenta: fundal. Amniotic fluid: Amount of AF: normal. Method ======== Voluson E10, Transabdominal ultrasound examination. View: Sufficient. Impression [id number] Limited obstetrical ultrasound This is a alan gestation. The anatomy was not reviewed in detail. movement was noted. The amniotic fluid volume appears normal. Follow-up Follow-up as clinically indicated. DATE OF SERVICE: 07/03/2019 us Mariluz Hancock NP, CNM IMG US [facility] ORDERA BLES Final Result * BACTERIAL CULTURE, URINE (07/03/2019 15:27 EDT) Result Less than 10,000 CFU/ml Usual urogenital nataliya. 07/04/2019 12:[address] [facility] Urine specimen (specimen) URINE / Unknown 07/03/2019 15:27 EDT 07/03/2019 16:15 EDT Mariluz Hancock NP, CNM MICROBIOLOGY - GE NERAL ORDERABLES Final Result [facility] [address] [place] [address] documented in this encounter Visit Diagnoses Diagnosis Supervision of other normal , antepartum- Primary Supervision of normal intrauterine in multigravida in first trimester Cyst of left ovary Other and unspecified ovarian cyst documented in this encounter Historical Medications * This list may reflect changes made after this encounter. vit calc,iron,folic ( VITAMIN ORAL) Take by mouth. 08/05/2020 added in this encounter Care Teams Sales Route Driver Relationship Specialty Start Date End Date Zina Monroy DO PCP - General 05/27/19 08/05/20 documented as of this encounter
--- OUTSIDE RECORDS SUMMARY | 2024-12-08 15:32 | XMS_ITS | Encounter Summary ---
Author Organization [facility] Address [address] [place] [address] Care Team Providers Care Software Development Manager Name Role Phone IleanaZina mora Ashli PERKINS Primary Care Provider [phone] Reason for Referral * SENIOR LEAD SOFTWARE ENGINEER (Other (Specify in Question)) - New Request Specialty Diagnoses / Procedures Referred By Seema kapoor Referred To Contact Diagnoses of unknown anatomic location Procedures DIGITAL MARKETING CONSULTANT US OB FIRST TRIMESTER TRANSVAGINAL Amena Lara MD Phone: tel: fax: Referral ID Status Reason Start Date Expiration Date V isits Requested Visits Authorized [id number] New Request 05/31/2019 1 1 Reason for Visit * Reason Onset Date Comments Follow-up 05/31/2019 Encounter Details Date Type Department Care Team (Late st Contact Info) Description 05/31/2019 Telephone [facility] - [address] [phone] Lizy Alicea RN Follow-up Social History Tobacco Use Types Packs/Day Years [...] Telephone Encounter - Lizy Alicea RN - 05/31/2019 1600 EDT Spoke with [place]: has not had any pain for > 3 days, has never had bleeding since becoming . Advised BHCG result from today = 244, this is more then doubled from 110 on 05/29, will discuss with MD team & TCB with plan. External results entered from faxed documentation, will have this documentation scanned. Plane per Dr. Banerjee & 181 team: appropriately rising HCG, currently asymptomatic, give strict ectopic precautions & u/s in 2 weeks. TVUS order placed, PSS to schedule. Spoke with Ulises: advised ordered TVUS 06/14/19, if does not get a call by mid week, then TCB to nurse to schedule. Ectopic precautions given : If you have vaginal bleeding that soaks 2 maxipad (or superplus tampon)/hr >2hrs in a row, pass blood clots >= size of james, experience dizziness, lightheadedness,SOB, severe abdominal pain not helped with medication, or new onset shoulder or back pain, then youshould have someone take you to the ER. She mentioned that with past , had nausea, vomiting & dehydration & asked if she should take suppositories---> advised not at this time, if had n/v should call for advise. Also was recommend to take progesterone supplements by [facility] provider--->suggested she discuss this at first PNV, but have not heard of this for someone that has only had one miscarriage & no other risk factor. Please call us with any concerns or questions. DIGITAL MARKETING CONSULTANT nurse line [phone], or after hours MD line [phone]. documented in this encounter Plan of Treatment Upcoming Encounters Date Type Department Care Team (Late st Contact Info) Description 12/11/2024 9:25 EST Hospital Encounter [facility] OR [address] [place] [address] [phone] Celeste Cooper MD [address] [place] [address] 4 [place] [phone] 12/11/2024 9:25 EST - 12/11/2024 11:40 EST Surgery [facility] OR [address] [place] [address] [phone] Celeste Cooper MD [address] [place] [address] [phone] Laparoscopic left ovarian cystectomy [17969 (CPT??)] 12/31/2024 16:15 EST Post-op Visit [facility] - [address] [phone] Jessika Upton MD [address] [place] [address] [phone] 02/06/2025 13:10 EDT Appointment [facility] [address] [phone] 03/05/2025 8:40 EDT Office Visit [facility]ology - [address] [phone] Nikolay Elizabeth MD MPH [address] [place] [address] 5 [place] [phone] Scheduled Procedures Name Priority Associated Diagnoses Date/Ti me LAPAROSCOPY, WITH EXCISION O R FULGURATION OF LESIONS OF OVARY, PELVIC VISCERA, OR PERITONEAL SURFACE Cyst of left ovary 12/11/2024 9:25 EST documented as of this encounter Procedures Procedure Name Priority Date/Time Associated Diagnosis Comments DIGITAL MARKETING CONSULTANT US OB FIRST TRIMESTER TRANSVAGINAL Routine 06/12/2019 12:04 EDT of unknown anatomic location QUANT BETA HCG, Routine 05/31/2019 12:10 EDT documented in this encounter Results * DIGITAL MARKETING CONSULTANT US OB FIRST TRIMESTER TRANSVAGINAL (06/12/2019 12:04 EDT) Anatomical Region Laterality Modality Other 06/12/2019 12:0 4 EDT 06/12/2019 12:13 EDT Narrative 06/12/2019 12:13 EDT Indication Follow up to scan 05/27/2019 , Viability. History ======= Previous Outcomes ?3 Para ?? 0 Adorno children born (T) ?0 Adorno children born (P) ?0 Abortions (A) ??2 Adorno living children (L) ??0 Number of gestational sacs: 1. Dating ======= LMP on: ?04/20/2019 RHODA by LMP : ? 01/25/2020 Method of dating: ??based on ultrasound Ultrasound examination on: 06/12/2019 GA by U/S based upon: ??CRL GA by U/S ??5 w + 5 d RHODA by U/S: ?02/07/2020 Previous dating: ?? Dating performed on 05/27/2019 Based on the LMP Assigned GA of previous dating 7 w + 4 d Agreed RHODA of previous datin01/25/2020 Assigned: ??Dating performed on 06/12/2019, based on ultrasound (CRL) Assigned GA ?5 w + 5 d Assigned RHODA: ??02/07/2020 Assessment Gestational sac: ?? Visualized Location: ??Intrauterine Yolk sac: ??Visualized YS mean ?2.0 mm Amniotic sac: ??Visualized Embryo: ?Visualized CRL ?2.3 mm ??<1% 5w 5d Hadlock Cardiac activity: ??Present FHR ?124 bpm Maternal Structures Ovaries / Tubes / Adnexa Rt ovary: ??Normal with Corpus luteum Rt ovarian corpus luteum: ??hemorrhagic Rt ovarian corpus luteum D1 ?22.0 mm Rt ovarian corpus luteum D2 ?17.5 mm Rt ovarian corpus luteum D3 ?15.1 mm Lt ovary: ??Normal with Corpus luteum Lt ovarian corpus luteum: ??anechoic Lt ovarian corpus luteum D1 ?23.9 mm Lt ovarian corpus luteum D2 ?23.0 mm Lt ovarian corpus luteum D3 ?20.1 mm Pouch of Tyshawn / Other Structures Cul de Sac: ?Appears normal Free fluid: ?No free fluid visualized Method ======== Transvaginal ultrasound examination. View: Good view. Impression OB limited transvaginal [id number] Single viable intrauterine (IUP). US dating is greater than 4 days compared to menstrual dating. In this situation ultrasound dating is most accurate for EDC, 02/07/2020 Follow-up The patient will follow-up with her OB. Comment ========= Prior ultrasounds reviewed and compared to today's ultrasound.,?Ultrasound findings discussed w/patient. DATE OF SERVICE: 06/12/2019 Procedure Note Parish Fung MD, - 06/12/2019 Indication Follow up to scan 05/27/2019 , Viability. History ======= Previous Outcomes 3 Para 0 Adorno children born (T) 0 Adorno children born (P) 0 Abortions (A) 2 Adorno living children (L) 0 Number of gestational sacs: 1. Dating ======= LMP on: 04/20/2019 RHODA by LMP : 01/25/2020 Method of dating: based on ultrasound Ultrasound examination on: 06/12/2019 GA by U/S based upon: CRL GA by U/S 5 w + 5 d RHODA by U/S: 02/07/2020 Previous dating: Dating performed on 05/27/2019 Based on the LMP Assigned GA of previous dating 7 w + 4 d Agreed RHODA of previous datin01/25/2020 Assigned: Dating performed on 06/12/2019, based on ultrasound (CRL) Assigned GA 5 w + 5 d Assigned RHODA: 02/07/2020 Assessment Gestational sac: Visualized Location: Intrauterine Yolk sac: Visualized YS mean 2.0 mm Amniotic sac: Visualized Embryo: Visualized CRL 2.3 mm <1% 5w 5d Hadlock Cardiac activity: Present FHR 124 bpm Maternal Structures Ovaries / Tubes / Adnexa Rt ovary: Normal with Corpus luteum Rt ovarian corpus luteum: hemorrhagic Rt ovarian corpus luteum D1 22.0 mm Rt ovarian corpus luteum D2 17.5 mm Rt ovarian corpus luteum D3 15.1 mm Lt ovary: Normal with Corpus luteum Lt ovarian corpus luteum: anechoic Lt ovarian corpus luteum D1 23.9 mm Lt ovarian corpus luteum D2 23.0 mm Lt ovarian corpus luteum D3 20.1 mm Pouch of Tyshawn / Other Structures Cul de Sac: Appears normal Free fluid: No free fluid visualized Method ======== Transvaginal ultrasound examination. View: Good view. Impression OB limited transvaginal [id number] Single viable intrauterine (IUP). US dating is greater than 4 days compared to menstrual dating. In this situation ultrasound dating is most accurate for EDC, 02/07/2020 Follow-up The patient will follow-up with her OB. Comment ========= Prior ultrasounds reviewed and compared to today's ultrasound.,?Ultrasound findings discussed w/patient. DATE OF SERVICE: 06/12/2019 us Amena Lara MD IMG US DIGITAL MARKETING CONSULTANT ORDERABLES Юлия l Result * QUANT BETA HCG, (05/31/2019 12:10 EDT) HCG, External 244 <5 mIU/mL [facility] Blood specimen (specimen) 05/31/2019 12:10 EDT us Brissa Herndon MD CHEMISTRY & BLOOD GAS ORDERABLE S Final Result [facility] documented in this encounter Visit Diagnoses Diagnosis of unknown anatomic location- Primary state, incidental Cyst of left ovary Other and unspecified ovarian cyst documented in this encounter Orders Lab Orders Without Results Count Last Ordered D ate First Ordered Date QUANT BETA HCG, 1 05/31/2019 documented in this encounter Care Teams Software Development Manager Relationship Specialty Start Date End Date Zina Monroy DO PCP - General 05/27/19 08/05/20 documented as of this encounter
--- OUTSIDE RECORDS SUMMARY | 2024-12-08 15:32 | XMS_ITS | Encounter Summary ---
Author Organization [facility] Address [address] [place] [address] Care Team Providers Care Children'S Ministry Director Name Role Phone Zina Monroy Primary Care Provider [phone] Encounter Details Date Type Department Care Team (Late st Contact Info) Description 05/27/2019 Phlebotomy Only [address] [phone] Aoc Plans Intelligence Officer Chief, Outpatient of unknown anatomic location (Primary Dx) Social History Tobacco Use Types [...] Hospital Encounter [facility] OR [address] [place] [address] Celeste Cooper MD [address] [place] [address] 4 [place] [phone] 12/11/2024 9:25 EST - 12/11/2024 11:[address] [facility] OR [address] [place] [address] [phone] Celeste Cooper MD [address] [place] [address] 4 [place] [phone] Laparoscopic left ovarian cystectomy [56230 (CPT??)] 12/31/2024 16:15 EST Post-op Visit [facility] OBGYN Services - [address] [phone] Jessika Upton MD [address] [place] [address] [phone] 02/06/2025 13:10 EDT Appointment [facility] [address] [phone] 03/05/2025 8:40 EDT Office Visit [facility] Rheumatology & Immunology - [address] [phone] Nikolay Elizabeth MD MPH [address] [place] [address], [facility] [address] [place] [phone] Scheduled Procedures Name Priority Associated Diagnoses Date/Ti me LAPAROSCOPY, WITH EXCISION O R FULGURATION OF LESIONS OF OVARY, PELVIC VISCERA, OR PERITONEAL SURFACE Cyst of left ovary 12/11/2024 9:25 EST documented as of this encounter Procedures Procedure Name Priority Date/Time Associated Diagnosis Comments COMPLETE BLOOD COUNT AND DIFFERENTIAL Routine 05/27/2019 15:02 EDT of unknown anatomic location QUANT BETA HCG, Routine 05/27/2019 15:02 EDT of unknown anatomic location ALT Routine 05/27/2019 15:02 EDT of unknown anatomic location AST Routine 05/27/2019 15:02 EDT of unknown anatomic location CREATININE Routine 05/27/2019 15:02 EDT of unknown anatomic location TYPE AND SCREEN Routine 05/27/2019 15:00 EDT of unknown anatomic location documented in this encounter Results * COMPLETE BLOOD COUNT AND DIFFERENTIAL (05/27/2019 15:02 EDT) WBC 9.12 4.0 - 12.4 K/cmm 05/27/2019 15:32 [facility] RBC 4.61 3.86 - 5.04 M/cmm 05/27/2019 15:32 [facility] Hemoglobin 13.1 11.6 - 15.2 gm/dl 05/27/2019 15:32 [facility] HCT 38.5 34.9 - 44.4 % 05/27/2019 15:32 [facility] MCV 84 81 - 98 fl 05/27/2019 15:32 [facility] MCH 28.4 26.7 - 33.3 pg 05/27/2019 15:32 [facility] MCHC 34.0 32.1 - 35.9 gm/dl 05/27/2019 15:32 [facility] RDW-CV 13.2 <14.7 % 05/27/2019 15:32 [facility] RDW-SD 39.9 <50.4 fl 05/27/2019 15:32 [facility] PLT 272 141 - 377 K/cmm 05/27/2019 15:32 [facility] MPV 10.3 9.5 - 12.7 fl 05/27/2019 15:32 [facility] % Neutrophils 64.0 % 05/27/2019 15:32 [facility] % Lymphocytes 25.8 % 05/27/2019 15:32 [facility] % Monocytes 8.0 % 05/27/2019 15:32 [facility] % Eosinophils 1.4 % 05/27/2019 15:32 [facility] % Basophils 0.4 % 05/27/2019 15:32 [facility] % Immature Grans 0.4 % 05/27/2019 15:32 [facility] ABS Neutrophils 5.83 2.20 - 8.85 K/cmm 05/27/2019 15:32 [facility] ABS Lymphs 2.35 1.09 - 3.30 K/cmm 05/27/2019 15:32 [facility] ABS Monocytes 0.73 0.1 - 0.8 K/cmm 05/27/2019 15:32 [facility] ABS Eosinophils 0.13 0.03 - 0.61 K/cmm 05/27/2019 15:32 [facility] ABS Basophils 0.04 0.01 - 0.11 K/cmm 05/27/2019 15:32 [facility] ABS Immature Grans 0.04 0 - 0.06 K/cmm 05/27/2019 15:32 [facility] Type of Diff: Automated 05/27/2019 15:32 [facility] Blood specimen (specimen) BLOOD SPECIMEN / Unknown 05/27/2019 15:02 EDT 05/27/2019 15:20 EDT us Celeste Cooper MD PACKAGES & DNA PROBE ORDERABL ES Final Result [facility] [address] [place] [address] * ALT (05/27/2019 15:02 EDT) ALT 41 <53 U/L 05/27/2019 15:59 [facility] Blood specimen (specimen) BLOOD SPECIMEN / Unknown 05/27/2019 15:02 EDT 05/27/2019 15:20 EDT us Celeste Cooper MD CHEMISTRY & BLOOD GAS ORDERAB LES Final Result Performing Organization Address City/[facility]/ZIP Co de Phone Number [facility] [address] [place] [address] * AST (05/27/2019 15:02 EDT) AST 23 15 - 46 U/L 05/27/2019 15:59 EDT [facility] Blood specimen (specimen) BLOOD SPECIMEN / Unknown 05/27/2019 15:02 EDT 05/27/2019 15:20 EDT us Celeste Cooper MD CHEMISTRY & BLOOD GAS ORDERAB LES Final Result Performing Organization Address [facility] Co de Phone Number [facility] [address] [place] [address] * CREATININE (05/27/2019 15:02 EDT) Creatinine 0.72 0.52 - 1.04 mg/dl 05/27/2019 15:59 EDT [facility] GFR, Calculated 118 >60 ml/min/1.7 3m2 05/27/2019 15:59 EDT [facility] Comment: eGFR calculated using CKD-EPI equation for non Americans. Multiply eGFR by 1.16 for Americans. Blood specimen (specimen) BLOOD SPECIMEN / Unknown 05/27/2019 15:02 EDT 05/27/2019 15:20 EDT us Celeste Cooper MD CHEMISTRY & BLOOD GAS ORDERAB LES Final Result Performing Organization Address [facility] Co de Phone Number [facility] [address] [place] [address] * (ABNORMAL) QUANT BETA HCG, (05/27/2019 15:02 EDT) Quant Beta HCG, Preg 51(H) <5 mIU/ml 05/27/2019 16:25 EDT [facility] Comment: Reference Range: Negative = <5 Indeterminate = 5-25 recommend repeat in 48 hours. Positive = >25 The results of this assay can be falsely lowered due to the consumption of Biotin. Blood specimen (specimen) BLOOD SPECIMEN / Unknown 05/27/2019 15:02 EDT 05/27/2019 15:20 EDT Celeste Cooper MD CHEMISTRY & BLOOD GAS ORDERAB LES Final Result Performing Organization Address [facility] Co de Phone Number [facility] [address] [place] [address] * TYPE AND SCREEN (05/27/2019 15:00 EDT) ABO O [facility] Rh Factor Positive [facility] Antibody Screen Negative [facility] Specimen Expires: 05/30/2019 @ 23:59 [facility] Blood specimen (specimen) 05/27/2019 15:00 EDT Celeste Cooper MD BLOOD BANK TESTS Final Result Performing Organization Address [facility] de Phone Number [facility] [address] [place] [address] documented in this encounter Visit Diagnoses Diagnosis of unknown anatomic location- Primary state, incidental Cyst of left ovary Other and unspecified ovarian cyst documented in this encounter Care Teams Children'S Ministry Director Relationship Specialty Start Date End Date Zina Monroy DO PCP - General 05/27/19 08/05/20 documented as of this encounter
--- OUTSIDE RECORDS SUMMARY | 2024-12-08 15:32 | XMS_ITS | Encounter Summary ---
Author Organization [facility] Address [address] [place] [address] Care Team Providers Care Tank Charger Name Role Phone Zina Monroy Primary Care Provider [phone] Reason for Visit * Reason Onset Date Comments Labs Only 05/31/2019 Encounter Details Date Type Department Care Team (Late st Contact Info) Description 05/31/[address] [facility] OBGYN Services - [address] [phone] Lizy Alicea, RN Labs Only Social History Tobacco Use Types Packs/Day [...] Miscellaneous Notes * Telephone Encounter - Lizy Alicea, MYA - 05/31/2019 0838 EDT External order faxed to [facility] registration for BHCG today 05/31. External results from [facility] for 05/29/19 BHCG entered form faxed documentation. Will have documentation scanned. documented in this encounter Plan of Treatment Upcoming Encounters Date Type Department Care Team (Late st Contact Info) Description 12/11/2024 9:25 EST Hospital Encounter [facility] OR [address] [place] [address] [phone] Celeste Cooper MD [address] [place] [address] [phone] 12/11/2024 9:25 EST - 12/11/2024 11:40 EST Surgery [facility] OR [address] [place] [address] [phone] Celeste Cooper MD [address] [place] [address] [phone] Laparoscopic left ovarian cystectomy [[id number] (CPT??)] 12/31/2024 16:15 EST Post-op Visit [facility] O[facility] Services - [address] [phone] Jessika Upton MD [address] [place] [address] [phone] 02/06/2025 13:[address] [facility] [address] [address] 03/05/2025 8:[address] [facility] Rheumatology & Immunology - [address] [phone] Nikolay Elizabeth MD [address] [place] [phone] Scheduled Procedures Name Priority Associated Diagnoses Date/Ti me LAPAROSCOPY, WITH EXCISION O R FULGURATION OF LESIONS OF OVARY, PELVIC VISCERA, OR PERITONEAL SURFACE Cyst of left ovary 12/11/2024 9:25 EST documented as of this encounter Procedures Procedure Name Priority Date/Time Associated Diagnosis Comments QUANT BETA HCG, Routine 05/29/2019 15:36 EDT documented in this encounter Results * QUANT BETA HCG, (05/29/2019 15:36 EDT) HCG, External 110 <5 mIU/mL [facility] Blood specimen (specimen) 05/29/2019 15:36 EDT us Celeste Cooper MD CHEMISTRY & BLOOD GAS ORDERAB LES Final Result [facility] documented in this encounter Visit Diagnoses Diagnosis of unknown anatomic location- Primary state, incidental Cyst of left ovary Other and unspecified ovarian cyst documented in this encounter Orders Lab Orders Without Results Count Last Ordered D ate First Ordered Date QUANT BETA HCG, 1 05/31/2019 documented in this encounter Care Teams Tank Charger Relationship Specialty Start Date End Date Zina Monroy DO PCP - General 05/27/19 08/05/20 documented as of this encounter
--- OUTSIDE RECORDS SUMMARY | 2024-12-08 15:32 | XMS_ITS | Encounter Summary ---
Author Organization [facility] Address [address] [place] [address] Care Team Providers Care Inhalation Therapy Aides Teacher Name Role Phone Zina Monroy Primary Care Provider [phone] Encounter Details Date Type Department Care Team (Late st Contact Info) Description 05/29/2019 Historical Results Only [facility] [place] [address] [address] Celeste Cooper MD [address] [facility], Level [address] [place] [phone] Social History Tobacco Use Types [...] Info) Description 12/11/2024 9:25 EST Hospital Encounter [facility] OR [address] [place] [address] [phone] Celeste Cooper MD [address] [place] [address] 4 [place] [phone] 12/11/2024 9:25 EST - 12/11/2024 11:40 EST Surgery [facility] OR [address] [place] [address] [phone] Celeste Cooper MD [address] [place] [address] [phone] Laparoscopic left ovarian cystectomy [25960 (CPT??)] 12/31/2024 16:15 EST Post-op Visit [facility] - [address] [phone] Jessika Upton MD [address] [place] [address] [phone] 02/06/2025 13:10 EDT Appointment [facility] - [address] [phone] 03/05/2025 8:40 EDT Office Visit [facility] Rheumatology & Immunology - [address] [phone] Nikolay Elizabeth MD MPH [address] [place] [address] [phone] Scheduled Procedures Name Priority Associated Diagnoses Date/Ti me LAPAROSCOPY, WITH EXCISION O R FULGURATION OF LESIONS OF OVARY, PELVIC VISCERA, OR PERITONEAL SURFACE Cyst of left ovary 12/11/2024 9:25 EST documented as of this encounter Procedures Procedure Name Priority Date/Time Associated Diagnosis Comments BETA-HCG QUANT(WITH DILUT) - [facility] [place] [place] Routine 05/29/2019 15:36 EDT documented in this encounter Results * (ABNORMAL) BETA-HCG QUANT(WITH DILUT) - [facility] [place] (05/29/2019 15:36 EDT) BETA-HCG QUANTITATIVE 110(H) <5 mIU/mL 05/29/2019 16:30 EDT [facility] Comment: Negative: ?< 5 Indeterminate: 5-25 (repeated in 48 hrs) Positive: ?> 25 The results of this assay can be falsely lowered due to the consumption of Biotin. 05/29/2019 15:3 6 EDT 05/29/2019 15:36 EDT Narrative [facility] - 05/29/2019 16:30 EDT Does PT Have a Latex Allergy? NO Enter/Edit CPT and ICD codes? N us Celeste Cooper MD CHEMISTRY & BLOOD GAS ORDERAB LES Final Result [facility] documented in this encounter Visit Diagnoses Not on filedocumented in this encounter Care Teams Inhalation Therapy Aides Teacher Relationship Specialty Start Date End Date Zina Monroy DO PCP - General 05/27/19 08/05/20 documented as of this encounter
--- OUTSIDE RECORDS SUMMARY | 2024-12-08 15:32 | XMS_ITS | Encounter Summary ---
Author Organization [facility] Address [address] [place] [address] Care Team Providers Care Biodiesel Engine Specialist Name Role Phone IleanaZina mora Ashli PERKINS Primary Care Provider [phone] Reason for Referral * Laboratory Services (Routine) - New Request Specialty Diagnoses / Procedures Referred By Contac t Referred To Contact Diagnoses of unknown anatomic location Procedures QUANT BETA HCG, Charlee Mclaughlin MD Phone: tel: fax: Referral ID Status Reason Start Date Expiration Date V isits Requested Visits Authorized [id number] New Request 05/31/2019 1 1 Encounter Details Date Type Department Care Team (Late st Contact Info) Description 05/30/2019 Orders Only [facility] [address] [place], [place] [id number] Brissa Herndon MD [address] [place] [address] [place] [id number] of unknown anatomic location (Primary Dx) Social [...] documented in this encounter Progress Notes * Brissa Herndon MD - 05/30/2019 1042 EDT TC to patient to discuss results from lab draw at [facility] yesterday. HCG with appropriate rise from 51->110 over 48 hours. Ultrasound findings still warrant close follow up. After discussion, she reports her pain has only really been with intercourse, and it resolves spontaneously. She hasn't had pain recently, and denies any vaginal bleeding. Discussed that we will place a order to have her get blood work drawn at [facility] on Monday, 05/31, and decide on repeat ultrasound based on that. Given ectopic precautions. Patient expressed understanding. Brissa Herndon MD 05/30/2019 10:48 documented in this encounter Plan of Treatment Upcoming Encounters Date Type Department Care Team (Late st Contact Info) Description 12/11/2024 9:[address] [facility] OR [address] [place] [address] [phone] Celeste Cooper MD [address] [place] [address], [facility] [address] [place] [phone] 12/11/2024 9:25 EST - 12/11/2024 11:[address] [facility] OR [address] [place] [address] [phone] Celeste Cooper MD [address] [place] [address], [facility] 4 [place] [phone] Laparoscopic left ovarian cystectomy [51183 (CPT??)] 12/31/2024 16:15 EST Post-op Visit [facility] OBGYN Services [address] [phone] Jessika Upton MD [address] [place] [phone] 02/06/2025 13:10 EDT Appointment [facility] O[facility] Services [address] [phone] 03/05/2025 8:40 EDT Office Visit [facility] Rheumatology & Immunology [address] [phone] Nikolay Elizabeth MD [address], [address] 5 [place] [phone] Scheduled Orders Name Type Priority Associated Diagnoses Orde r Schedule QUANT BETA HCG, Lab Routine of unknown anatomic location Expected: 05/31/2019 (Approximate), Expires: 05/30/2020 Scheduled Procedures Name Priority Associated Diagnoses Date/Ti me LAPAROSCOPY, WITH EXCISION O R FULGURATION OF LESIONS OF OVARY, PELVIC VISCERA, OR PERITONEAL SURFACE Cyst of left ovary 12/11/2024 9:25 EST documented as of this encounter Visit Diagnoses Diagnosis of unknown anatomic location- Primary state, incidental Cyst of left ovary Other and unspecified ovarian cyst documented in this encounter Care Teams Biodiesel Engine Specialist Relationship Specialty Start Date End Date Zina Monroy DO PCP - General 05/27/19 08/05/20 documented as of this encounter
--- OUTSIDE RECORDS SUMMARY | 2024-12-08 15:32 | XMS_ITS | Encounter Summary ---
Author Organization [facility] Address [address] [place] [address] Care Team Providers Care Nursing Education Specialist Name Role Phone Zina Monroy DO Primary Care Provider [phone] Reason for Visit * Reason Onset Date Comments Ultrasound 06/11/2019 Encounter Details Date Type Department Care Team (Late st Contact Info) Description 06/11/2019 Telephone [facility] OBGYN Services - [address] [address] Lizy Alicea RN Ultrasound Social History Tobacco [...] encounter Miscellaneous Notes * Telephone Encounter - Emilee Farias RN - 06/12/2019 3672 EDT [place] [address] [address] I spoke to Dr. Farrah Banerjee. Reviewed results from ultrasound today. Patient has an intrauterine . Per Dr. Banerjee patient may be taken off beta book surveillance. Patient has her first initial visit scheduled for 07/03/19. * Telephone Encounter - Lizy Alicea RN - 06/11/2019 1151 EDT Ulises M: received message & is calling back to confirm she got message re: ultrasound tomorrow @ 1120 & will be there. documented in this encounter Plan of Treatment Upcoming Encounters Date Type Department Care Team (Late st Contact Info) Description 12/11/2024 9:25 EST Hospital Encounter [facility] OR [address] [place] [address] [phone] Celeste Cooper MD [address] [place] [phone] 12/11/2024 9:25 EST - 12/11/2024 11:40 EST Surgery [facility] OR [address] [place] [address] [phone] Celeste Cooper MD [address] [place] [phone] Laparoscopic left ovarian cystectomy [50565 (CPT??)] 12/31/2024 16:15 EST Post-op Visit [facility] OBGYN Services [address] [phone] Jessika Upton MD [address] [place] [phone] 02/06/2025 13:10 EDT Appointment [facility] OBGYN Services - [address] [address] 03/05/2025 8:40 EDT Office Visit [facility] Rheumatology & Immunology - [address] [address] Nikolay Elizabeth MD MPH [address] [facility], Level 5 [place] [phone] Scheduled Procedures Name Priority Associated Diagnoses Date/Ti me LAPAROSCOPY, WITH EXCISION O R FULGURATION OF LESIONS OF OVARY, PELVIC VISCERA, OR PERITONEAL SURFACE Cyst of left ovary 12/11/2024 9:25 EST documented as of this encounter Visit Diagnoses Not on filedocumented in this encounter Care Teams Nursing Education Specialist Relationship Specialty Start Date End Date Zina Monroy DO PCP - General 05/27/19 08/05/20 documented as of this encounter
--- OUTSIDE RECORDS SUMMARY | 2024-12-08 15:32 | XMS_ITS | Encounter Summary ---
Author Organization [facility] Address [address] [place] [address] Care Team Providers Care Perioperative Educator Name Role Phone Zina Monroy Primary Care Provider [phone] Encounter Details Date Type Department Care Team (Late st Contact Info) Description 05/27/2019 Orders Only [facility] OBGYN Services - [address] [phone] Celeste Cooper MD 111 [facility], Level 4 [place] [phone] of unknown anatomic location (Primary Dx) Social [...] EST Hospital Encounter [facility] OR [address] [place] [address] [phone] Celeste Cooper MD [address] [place] [phone] 12/11/2024 9:25 EST - 12/11/2024 11:40 EST Surgery [facility] OR [address] [place] [address] [phone] Celeste Cooper MD [address] [place] [phone] Laparoscopic left ovarian cystectomy [04014 (CPT??)] 12/31/2024 16:15 EST Post-op Visit [facility] OBGYN Services - [address] [phone] Jessika Upton MD [address] [place] [phone] 02/06/2025 13:10 EDT Appointment [facility] [address] [phone] 03/05/2025 8:40 EDT Office Visit [facility] Rheumatology & Immunology - [address] [phone] Nikolay Elizabeth MD MPH [address] [place] [address] 5 [place] [phone] Scheduled Procedures Name Priority Associated Diagnoses Date/Ti me LAPAROSCOPY, WITH EXCISION O R FULGURATION OF LESIONS OF OVARY, PELVIC VISCERA, OR PERITONEAL SURFACE Cyst of left ovary 12/11/2024 9:25 EST documented as of this encounter Results * (ABNORMAL) QUANT BETA HCG, (05/27/2019 15:02 EDT) Quant Beta HCG, Preg 51(H) <5 mIU/ml 05/27/2019 16:25 EDT [facility] Comment: Reference Range: Negative = <5 Indeterminate = 5-25 recommend repeat in 48 hours. Positive = >25 The results of this assay can be falsely lowered due to the consumption of Biotin. Blood specimen (specimen) BLOOD SPECIMEN / Unknown 05/27/2019 15:02 EDT 05/27/2019 15:20 EDT Celeste Cooper MD CHEMISTRY & BLOOD GAS ORDERAB LES Final Result Performing Organization Address [facility] Co de Phone Number [facility] [address] [place] [address] * CREATININE (05/27/2019 15:02 EDT) Creatinine 0.72 0.52 - 1.04 mg/dl 05/27/2019 15:59 EDT [facility] GFR, Calculated 118 >60 ml/min/1.7 3m2 05/27/2019 15:59 EDT [facility] Comment: eGFR calculated using CKD-EPI equation for non Americans. Multiply eGFR by 1.16 for Americans. Blood specimen (specimen) BLOOD SPECIMEN / Unknown 05/27/2019 15:02 EDT 05/27/2019 15:20 EDT Celeste Cooper MD CHEMISTRY & BLOOD GAS ORDERAB LES Final Result Performing Organization Address City/[facility]/ZIP Co de Phone Number [facility] [address] [place] [address] * AST (05/27/2019 15:02 EDT) AST 23 15 - 46 U/L 05/27/2019 15:59 EDT [facility] Blood specimen (specimen) BLOOD SPECIMEN / Unknown 05/27/2019 15:02 EDT 05/27/2019 15:20 EDT us Celeste Cooper MD CHEMISTRY & BLOOD GAS ORDERAB LES Final Result Performing Organization Address City/[facility]/ZIP Co de Phone Number [facility] [address] [place] [address] * ALT (05/27/2019 15:02 EDT) ALT 41 <53 U/L 05/27/2019 15:59 EDT [facility] Blood specimen (specimen) BLOOD SPECIMEN / Unknown 05/27/2019 15:02 EDT 05/27/2019 15:20 EDT us Celeste Cooper MD CHEMISTRY & BLOOD GAS ORDERAB LES Final Result Performing Organization Address City/[facility] Co de Phone Number [facility] [address] [place] [address] * COMPLETE BLOOD COUNT AND DIFFERENTIAL (05/27/2019 15:02 EDT) WBC 9.12 4.0 - 12.4 K/cmm 05/27/2019 15:32 [facility] RBC 4.61 3.86 - 5.04 M/cmm 05/27/2019 15:32 [facility] Hemoglobin 13.1 11.6 - 15.2 gm/dl 05/27/2019 15:32 [facility] HCT 38.5 34.9 - 44.4 % 05/27/2019 15:32 [facility] MCV 84 81 - 98 fl 05/27/2019 15:32 [facility] MCH 28.4 26.7 - 33.3 pg 05/27/2019 15:32 [facility] MCHC 34.0 32.1 - 35.9 gm/dl 05/27/2019 15:32 [facility] RDW-CV 13.2 <14.7 % 05/27/2019 15:32 [facility] RDW-SD 39.9 <50.4 fl 05/27/2019 15:32 [facility] PLT 272 141 - 377 K/cmm 05/27/2019 15:32 [facility] MPV 10.3 9.5 - 12.7 fl 05/27/2019 15:32 [facility] % Neutrophils 64.0 % 05/27/2019 15:32 [facility] % Lymphocytes 25.8 % 05/27/2019 15:32 [facility] % Monocytes 8.0 % 05/27/2019 15:32 [facility] % Eosinophils 1.4 % 05/27/2019 15:32 [facility] % Basophils 0.4 % 05/27/2019 15:32 [facility] % Immature Grans 0.4 % 05/27/2019 15:32 [facility] ABS Neutrophils 5.83 2.20 - 8.85 K/cmm 05/27/2019 15:32 [facility] ABS Lymphs 2.35 1.09 - 3.30 K/cmm 05/27/2019 15:32 [facility] ABS Monocytes 0.73 0.1 - 0.8 K/cmm 05/27/2019 15:32 [facility] ABS Eosinophils 0.13 0.03 - 0.61 K/cmm 05/27/2019 15:32 [facility] ABS Basophils 0.04 0.01 - 0.11 K/cmm 05/27/2019 15:32 [facility] ABS Immature Grans 0.04 0 - 0.06 K/cmm 05/27/2019 15:32 [facility] Type of Diff: Automated 05/27/2019 15:32 [facility] Blood specimen (specimen) BLOOD SPECIMEN / Unknown 05/27/2019 15:02 EDT 05/27/2019 15:20 EDT us Celeste Cooper MD PACKAGES & DNA PROBE ORDERABL ES Final Result [facility] [address] [place] [address] * TYPE AND SCREEN (05/27/2019 15:00 EDT) ABO O [facility] Rh Factor Positive [facility] Antibody Screen Negative [facility] Specimen Expires: 05/30/2019 @ 23:59 [facility] Blood specimen (specimen) 05/27/2019 15:00 EDT Celeste Cooper MD BLOOD BANK TESTS Final Result [facility] [address] [facility] [place] [address] documented in this encounter Visit Diagnoses Diagnosis of unknown anatomic location- Primary state, incidental Cyst of left ovary Other and unspecified ovarian cyst documented in this encounter Care Teams Perioperative Educator Relationship Specialty Start Date End Date Zina Monroy DO PCP - General 05/27/19 08/05/20 documented as of this encounter
--- OUTSIDE RECORDS SUMMARY | 2024-12-08 15:32 | XMS_ITS | Encounter Summary ---
Author Organization [facility] Address [address] [place] [address] Care Team Providers Care Airway Traffic Controller Name Role Phone Zian Monroy Primary Care Provider [phone] Reason for Visit * Reason Onset Date Comments Medications Refill 06/20/2019 Encounter Details Date Type Department Care Team (Late st Contact Info) Description 06/20/2019 Telephone [facility] Obstetrics & Midwifery - [address] [address] Ely Morel RN Medications Refill Social History Tobacco Use [...] Refills Last Filled Start Date End Date promethazine (PHENERGAN) 25 mg tablet Take 0.5 Tabs by mouth every 6 hours as needed for up to 14 days for Nausea. 30 Tab 06/20/2019 07/04/2019 documented in this encounter Miscellaneous Notes * Telephone Encounter - Ely Morel RN - 06/20/2019 1003 EDT Rec'd message from patient looking for refill on her promethazine. Return call to patient. Promethazine not listed under medications prescribed by provider here. Patient states she had this script left over from Dr. Crow from last . States she started taking 12.5mg roughly 3 days ago and that has helped. Still vomiting a few times daily, but reports improvement since starting this. Did not experience relief with Zofran which was e-scribed 06/14. [facility] booked for July 03 w/ MIKE Ellsworth. Discussed with MIKE Ellsworth who ok'd 2 week supply of promethazine 12.5mg. Patient aware and medication e-scribed to patient's preferred pharmacy. Can re- evaluate for refills at [facility]. Patient denies any other questions/concerns at this time. documented in this encounter Plan of Treatment Upcoming Encounters Date Type Department Care Team (Late st Contact Info) Description 12/11/2024 9:25 EST Hospital Encounter [facility] OR [address] [place] [address] [phone] Celeste Cooper MD [address] [place] [phone] 12/11/2024 9:25 EST - 12/11/2024 11:40 EST Surgery [facility] OR [address] [place] [address] [phone] Celeste Cooper MD [address] [place] [phone] Laparoscopic left ovarian cystectomy [01843 (CPT??)] 12/31/2024 16:15 EST Post-op Visit [facility] OBGYN Services - [address] [phone] Jessika Upton MD [address] [place] [phone] 02/06/2025 13:10 EDT Appointment [facility] [address] [phone] 03/05/2025 8:40 EDT Office Visit [facility] Rheumatology & Immunology - [address] [phone] Nikolay Elizabeth MD [address], [address] [place] [phone] Scheduled Procedures Name Priority Associated Diagnoses Date/Ti me LAPAROSCOPY, WITH EXCISION O R FULGURATION OF LESIONS OF OVARY, PELVIC VISCERA, OR PERITONEAL SURFACE Cyst of left ovary 12/11/2024 9:25 EST documented as of this encounter Visit Diagnoses Not on filedocumented in this encounter Care Teams Airway Traffic Controller Relationship Specialty Start Date End Date Zina Monroy DO PCP - General 05/27/19 08/05/20 documented as of this encounter
--- OUTSIDE RECORDS SUMMARY | 2024-12-08 15:32 | XMS_ITS | Encounter Summary ---
Author Organization [facility] Address [address] [place] [address] Care Team Providers Care Blasting Cap Assembler Name Role Phone Zina Monroy Primary Care Provider [phone] Encounter Details Date Type Department Care Team (Late st Contact Info) Description 11/12/2019 14:15 EST Phlebotomy Only [facility] 2 Phlebotomy [address] [place] [address] Fence Builder, Acc Phlebotomy Encounter for supervision of other normal in second trimester (Primary Dx) Social History Tobacco Use [...] 9:25 EST Hospital Encounter [facility] OR [address] [place] [address] [phone] Celeste Cooper MD [address] [place] [phone] 12/11/2024 9:25 EST - 12/11/2024 11:40 EST Surgery [facility] OR [address] [place] [address] [phone] Celeste Cooper MD [address] [place] [phone] Laparoscopic left ovarian cystectomy [89614 (CPT??)] 12/31/2024 16:15 EST Post-op Visit [facility] OBGYN Services - [address] [phone] Jessika Upton MD [address] [place] [phone] 02/06/2025 13:10 EDT Appointment [facility] OBGYN Services [address] [phone] 03/05/2025 8:40 EDT Office Visit [facility] Rheumatology & Immunology - [address] [phone] Nikolay Elizabeth MD [address] [place] [phone] Scheduled Procedures Name Priority Associated Diagnoses Date/Ti me LAPAROSCOPY, WITH EXCISION O R FULGURATION OF LESIONS OF OVARY, PELVIC VISCERA, OR PERITONEAL SURFACE Cyst of left ovary 12/11/2024 9:25 EST documented as of this encounter Procedures Procedure Name Priority Date/Time Associated Diagnosis Comments GLUCOSE-1HR GESTATIONAL SCREEN Routine 11/12/2019 15:25 EST Encounter for supervision of other normal in second trimester RUBELLA IGG ANTIBODY Routine 11/12/2019 15:25 EST Encounter for supervision of other normal in second trimester COMPLETE BLOOD COUNT Routine 11/12/2019 15:25 EST Encounter for supervision of other normal in second trimester documented in this encounter Results * RUBELLA IGG ANTIBODY (11/12/2019 15:25 EST) Rubella IgG Ab Negative See Note 11/13/2019 10:22 EST [facility] Comment:Sample is consideree d negative [...] EST 11/12/2019 15:52 EST us Elizabeth Kendrick PORCELAIN BUILDUP ASSISTANT [facility] CHEMISTRY & BLOOD GAS ORD ERABLES Final Result [facility] [address] [place] [address] * GLUCOSE-1HR GESTATIONAL SCREEN (11/12/2019 15:25 EST) Glucose-1hr Gest Scn 109 50 - 134 mg/dL 11/12/2019 16:23 EST [facility] Glucose Dose 50 grams 11/12/2019 16:23 EST [facility] Blood VENOUS BLOOD / Unknown Venipuncture / Unknown 11/12/2019 15:25 EST 11/12/2019 15:51 EST us Elizabeth HARTM CHEMISTRY & BLOOD GAS ORD ERABLES Final Result Performing Organization Address City/[facility]/ZIP Co de Phone Number [facility] [address] [place] [address] * (ABNORMAL) COMPLETE BLOOD COUNT (11/12/2019 15:25 EST) WBC 12.77(H) 4.00 - 12.40 K/cmm 11/12/2019 16:17 [facility] RBC 3.89 3.86 - 5.04 M/cmm 11/12/2019 16:17 [facility] Hemoglobin 10.8(L) 11.6 - 15.2 gm/dL 11/12/2019 16:17 [facility] HCT 32.2(L) 34.9 - 44.4 % 11/12/2019 16:17 [facility] MCV 83 81 - 98 fl 11/12/2019 16:17 [facility] MCH 27.8 26.7 - 33.3 pg 11/12/2019 16:17 [facility] MCHC 33.5 32.1 - 35.9 gm/dL 11/12/2019 16:17 [facility] RDW-CV 12.5 <14.7 % 11/12/2019 16:17 [facility] RDW-SD 38.0 <50.4 fl 11/12/2019 16:17 [facility] PLT 272 141 - 377 K/cmm 11/12/2019 16:17 [facility] MPV 10.7 9.5 - 12.7 fl 11/12/2019 16:17 [facility] Blood VENOUS BLOOD / Unknown Venipuncture / Unknown 11/12/2019 15:25 EST 11/12/2019 16:01 EST us Elizabeth HARTM HEMATOLOGY & PF4 ORDERABL ES Final Result Performing Organization Address City/[facility]/ZIP Co de Phone Number [facility] [address] [place] [address] documented in this encounter Visit Diagnoses Diagnosis Encounter for supervision of other normal in second trimester- Primary Cyst of left ovary Other and unspecified ovarian cyst documented in this encounter Care Teams Blasting Cap Assembler Relationship Specialty Start Date End Date Zina Monroy DO PCP - General 05/27/19 08/05/20 documented as of this encounter
--- OUTSIDE RECORDS SUMMARY | 2024-12-08 15:32 | XMS_ITS | Encounter Summary ---
Author Organization [facility] Address [address] [place] [address] Care Team Providers Care Radiator Fitter Name Role Phone Zina Monroy Ashli PERKINS Primary Care Provider [phone] Encounter Details Date Type Department Care Team (Late st Contact Info) Description 08/05/2019 Documentation Visit [facility] - [address] [phone] Ziggy Romo MD [address] [place] [address], Level [address] [place] [phone] Social History Tobacco Use Types [...] documented in this encounter Progress Notes * Farrah Sales - 08/05/2019 0935 EDT Negative Prequel results received 08.05.19. Emily Sales documented in this encounter Plan of Treatment Upcoming Encounters Date Type Department Care Team (Late st Contact Info) Description 12/11/2024 9:25 EST Hospital Encounter [facility] OR [address] [place] [address] [phone] Celeste Cooper MD [address] [place] [phone] 12/11/2024 9:25 EST - 12/11/2024 11:40 EST Surgery [facility] OR [address] [place] [address] [phone] Celeste Cooper MD [address] [place] [phone] Laparoscopic left ovarian cystectomy [10777 (CPT??)] 12/31/2024 16:15 EST Post-op Visit [facility] [address] [phone] Jessika Upton MD [address] [place] [phone] 02/06/2025 13:10 EDT Appointment [facility] [address] [phone] 03/05/2025 8:40 EDT Office Visit [facility] - [address] [address] Nikolay Elizabeth MD MPH [address] [place] [address], Level [address] [place] [phone] Scheduled Procedures Name Priority Associated Diagnoses Date/Ti me LAPAROSCOPY, WITH EXCISION O R FULGURATION OF LESIONS OF OVARY, PELVIC VISCERA, OR PERITONEAL SURFACE Cyst of left ovary 12/11/2024 9:25 EST documented as of this encounter Visit Diagnoses Not on filedocumented in this encounter Care Teams Radiator Fitter Relationship Specialty Start Date End Date Zina Monroy DO PCP - General 05/27/19 08/05/20 documented as of this encounter
--- OUTSIDE RECORDS SUMMARY | 2024-12-08 15:32 | XMS_ITS | Encounter Summary ---
Author Organization [facility] Address [address] [place] [address] Care Team Providers Care Counter Clerk [employer] Name Role Phone Zina Monroy Primary Care Provider [phone] Reason for Visit * Reason Comments Routine Visit Encounter Details Date Type Department Care Team (Late st Contact Info) Description 08/28/2019 15:30 EDT Routine [facility] OBGYN Services - [address] [address] Mariluz Hancock NP [address], [address] [place] [address] [place]: 16w5d Discharge Disposition: Auto Discharge Social History Tobacco [...] Sign Reading Time Taken Comments Blood Pressure 113/64 08/28/2019 1529 EDT Pulse - - Temperature - - Respiratory Rate - - Oxygen Saturation - - Inhaled Oxygen Concentration - - Weight 73.5 kg (162 lb) 08/28/2019 1529 EDT Height 157.5 cm (5' 2.01) 08/28/2019 1529 EDT Body Mass Index 29.62 08/28/2019 1529 EDT documented in this encounter [...] supervision of other normal , unspecified trimester-Z34.80[ICD-10-CM] Z87.42 Personal history of other diseases of the female genital tract-Z87.42[ICD-10-CM] documented in this encounter Discharge Disposition Disposition Code Departure Means Destination Auto Discharge documented in this encounter Progress Notes * Mariluz Hancock, TANNER - 08/28/2019 1530 EDT S: [facility] is here today for a visit at 16w5d. Here with French. [place] flutters today. Denies cramping, bleeding, leaking. Continues to have low back pain. Yeast symptoms resolved. Wants to continue with [facility] care. French asking about vaccinations for newborns - what is reallyneeded vs what is recommended? O: Vitals: BP: 113/64 Height: 157.5 cm (62.01) Weight : 73.5 kg (162 lb) BMI: 29.684 Pelvic exam: cervix long/closed/firm, no CMT, uterus gravid and 1/2 between symphysis and umbilicus, no palpable masses. Cervix with +ectropion and friable. Vagina and vulva appear normal. A: 24 y.o. at 16w5d IUP Pap 07/2017 ASCUS, neg HPV Anxiety/depression Chronic LBP Rubella equivocal Rh pos P: labs reviewed, needs repeat rubella, please order at [place] Pap with cotesting and CT/GC obtained Discussed AAP makes guidelines for vaccination and believes all vaccines they recommend are needed - advised childhood vaccination and discussed lack of evidence to support harm vs lots of evidence to support benefit - suggested interviewing pedis and discussing further Discussed illness prevention, good hand washing ROSA scheduled Reviewed warning signs/when to call Follow up in 4 wks, sooner PRN documented in this encounter Plan of Treatment Upcoming Encounters Date Type Department Care Team (Late st Contact Info) Description 12/11/2024 9:25 EST Hospital Encounter [facility] OR [address] [place] [address] [phone] Celeste Cooper MD [address] [place] [phone] 12/11/2024 9:25 EST - 12/11/2024 11:40 EST Surgery [facility] OR [address] [place] [address] [phone] Celeste Cooper MD [address] [place] [phone] Laparoscopic left ovarian cystectomy [01302 (CPT??)] 12/31/2024 16:15 EST Post-op Visit [facility] OBGYN Services - [address] [phone] Jessika Upton MD [address] [place] [phone] 02/06/2025 13:10 EDT Appointment [facility] OBGYN Services [address] [phone] 03/05/2025 8:40 EDT Office Visit [facility] Rheumatology & Immunology - [address] [address] Nikolay Elizabeth MD MPH [address] [facility], [address] 5 [place] [address] Scheduled Orders Name Type Priority Associated Diagnoses Orde r Schedule PAP TEST- ORDER ONLY Pathology Routine Supervision of other normal History of abnormal cervical Pap smear Ordered: 08/28/2019 Scheduled Procedures Name Priority Associated Diagnoses Date/Ti me LAPAROSCOPY, WITH EXCISION O R FULGURATION OF LESIONS OF OVARY, PELVIC VISCERA, OR PERITONEAL SURFACE Cyst of left ovary 12/11/2024 9:25 EST documented as of this encounter Visit Diagnoses Diagnosis Supervision of other normal - Primary History of abnormal cervical Pap smear Personal history of other genital system and obstetric disorders Cyst of left ovary Other and unspecified ovarian cyst documented in this encounter Care Teams Counter Clerk [employer] Relationship Specialty Start Date End Date Zina Monroy DO PCP - General 05/27/19 08/05/20 documented as of this encounter
--- OUTSIDE RECORDS SUMMARY | 2024-12-08 15:32 | XMS_ITS | Encounter Summary ---
Author Organization [facility] Address [address] [place] [address] Care Team Providers Care Kitchen Runner Name Role Phone Zina Monroy Primary Care Provider [phone] Encounter Details Date Type Department Care Team (Late st Contact Info) Description 08/28/2019 Results Only [facility] Nurse Midwifery Program - [address] [address] Sivakumar Hancock NP [facility] [address] [facility], [facility], [address] [place] [address] Social History Tobacco Use Types [...] EST Hospital Encounter [facility] OR [address] [place] [address] [phone] Celeste Cooper MD [address] [place] [address] [address] [place] [phone] 12/11/2024 9:25 EST - 12/11/2024 11:40 EST Surgery [facility] OR [address] [place] [address] [phone] Celeste Cooper MD [address] [place] [address] 4 [place] [phone] Laparoscopic left ovarian cystectomy [76288 (CPT??)] 12/31/2024 16:15 EST Post-op Visit [facility] OBGYN Services [address] [phone] Jessika Utpon MD [address] [place] [phone] 02/06/2025 13:10 EDT Appointment [facility] OBGYN Services [address] [phone] 03/05/2025 8:40 EDT Office Visit [facility] Rheumatology & Immunology [address] [phone] Nikolay Elizabeth MD [address] [place] [phone] Scheduled Procedures Name Priority Associated Diagnoses Date/Ti me LAPAROSCOPY, WITH EXCISION O R FULGURATION OF LESIONS OF OVARY, PELVIC VISCERA, OR PERITONEAL SURFACE Cyst of left ovary 12/11/2024 9:25 EST documented as of this encounter Procedures Procedure Name Priority Date/Time Associated Diagnosis Comments PAP TEST- RESULT ONLY Routine 08/28/2019 0:00 EDT documented in this encounter Results * PAP TEST- RESULT ONLY (08/28/2019 0:00 EDT) Pathology Report: CYTOPATHOLOGY REPORT Reports generated via electronic interface contain original data; however they are lacking the format of the original report. Caution should be taken when reading/interpreti ng unformatted reports. Name: ? ULISES COATES S ? Accession #: ? [id number] ? : ? 1995 (Age: 24) ??F ?Collect Date: ? 08/28/2019 ? Location: ? OBGYN ? Receive Date: ? 08/29/2019 ? Provider: SIVAKUMAR HANCOCK [facility] Copy to: ? Final Report SPECIMEN ADEQUACY ? Satisfactory for Evaluation - transformation zone component absent GENERAL CATEGORIZATION ? Negative for Intraepithelial Lesion or Malignancy ?? Menstrual/Pregnanc y Status: ?? Previous Gynecologic Pathology: ASC-US: 07/2017 Other: Additional clinical information: Z34.80 V22.01 Z87.42 V13.29 Specimen/Source: ??Pap Test, Cervix/Endocervix, ThinPrep Imaging System with manual evaluation Document reviewed and electronically signed by: ? FREIDA Chen(ASCP) ? Report ??Date: 09/02/2019 10:32 HPV with Pap Test ? Date Ordered: ? 09/02/2019 ? Status: ?? Signed Out ?Date Complete: ? 09/03/2019 ? By: ??System Interface ? Date Reported: ? 09/03/2019 ? Interpretation RESULT: Negative for HPV. No E6 or E7 mRNA is detected from HPV types 16,18,31,33,35, 39,45,51,52,56,58, 59,66, and 68 by steam tender mediated amplification. Comments Document reviewed and electronically signed by: ? System Interface ? Report date: 09/03/2019 By the signature above, the attending physician certifies that he/she has personally conducted a gross and/or microscopic examination of the described specimens and rendered or confirmed the above diagnosis. End of Report [facility] 08/28/2019 08/29/2019 Sivakumar Hancock PROGRAMMING INSTRUCTOR CN PATHOLOGY ORDERAB LES Final Result [facility] [address] [place] [address] documented in this encounter Visit Diagnoses Not on filedocumented in this encounter Care Teams Kitchen Runner Relationship Specialty Start Date End Date Zina Monroy DO PCP - General 05/27/19 08/05/20 documented as of this encounter
--- OUTSIDE RECORDS SUMMARY | 2024-12-08 15:33 | XMS_ITS | Encounter Summary ---
Author Organization [facility] Address [address] [place] [address] Care Team Providers Care Forcer Maker Name Role Phone Eugenie, Gill Mejia MD Primary Care Provider [phone] Zina Monryo DO Primary Care Provider [phone] Encounter Details Date Type Department Care Team (Late st Contact Info) Description 02/24/2018 Historical Results Only [facility] - [facility] - [place] [address] [place] [address] [id number] Santiago Anguiano MD [address] [place] [phone] Social History Tobacco Use Types Packs/Day Years Used Date Smoking Tobacco: Never Smokeless Tobacco: Never AUDIT-C Answer Date Recorded Frequency of Alcohol Consumption Never 07/03/2019 Average Number of Drinks Not on file 019 Frequency of Binge Drinking Not on file 05/2019 Comments Unknown Sex and Gender Information Value Date Recorded [...] Description 12/11/2024 9:25 EST Hospital Encounter [facility] OR [address] [place] [address] [phone] Celeste Cooper MD [address] [place] [address] 4 [place] [phone] 12/11/2024 9:25 EST - 12/11/2024 11:40 EST Surgery [facility] OR [address] [place] [address] [phone] Celeste Cooper MD [address] [place] [phone] Laparoscopic left ovarian cystectomy [08576 (CPT??)] 12/31/2024 16:15 EST Post-op Visit [facility] OBGYN Services - [address] [phone] Jessika Upton MD [address] [place] [phone] 02/06/2025 13:10 EDT Appointment [facility] OBGYN Services - [address] [phone] 03/05/2025 8:40 EDT Office Visit [facility] Rheumatology & Immunology - [address] [address] Nikolay Elizabeth MD MPH [address] [place] [phone] Scheduled Procedures Name Priority Associated Diagnoses Date/Ti me LAPAROSCOPY, WITH EXCISION O R FULGURATION OF LESIONS OF OVARY, PELVIC VISCERA, OR PERITONEAL SURFACE Cyst of left ovary 12/11/2024 9:25 EST documented as of this encounter Procedures Procedure Name Priority Date/Time Associated Diagnosis Comments BETA-HCG QUANT(WITH DILUT) - [facility] Routine 02/24/2018 21:11 EDT COMPLETE BLOOD COUNT WITH DIFFERENTIAL (AUTO) Routine 02/24/2018 21:11 EDT C REACTIVE PROTEIN Routine 02/24/2018 21 :11 EDT COMPREHENSIVE METABOLIC PANEL (CMP) Routine 02/24/2018 21:11 EDT documented in this encounter Results * C REACTIVE PROTEIN (02/24/2018 21:11 EDT) Pathologist [facility] C-Reactive Protein <5.0 <10.0 mg/L 02/24/2018 21:41 EDT [facility] 02/24/2018 21:1 1 EDT 02/24/2018 21:22 EDT Narrative [facility] - 02/24/2018 21:42 EDT Does PT Have a Latex Allergy? NO us Santiago Anguiano MD CHEMISTRY & BLOOD GAS ORDER JAD Final Result [facility] * (ABNORMAL) COMPREHENSIVE METABOLIC PANEL (CMP) (02/24/2018 21:11 EDT) Pathologist [facility] Albumin % 4.4 3.4 - 4.9 g/dL 02/24/2018 21:41 EDT [facility] ALKALINE PHOSPHATASE - [facility] 52 38 - 126 U/L 02/24/2018 21:41 EDT [facility] BILIRUBIN TOTAL <0.2(L) 0.2 - 1.3 mg/dL 02/24/2018 21:42 EDT [facility] BUN - [facility] 15 10 - 26 mg/dL 02/24/2018 21:41 EDT [facility] CALCIUM - [facility] 9.7 8.5 - 10.5 mg/dL 02/24/2018 21:41 [facility] Chloride 106 96 - 110 mmol/L 02/24/2018 21:41 [facility] CO2 Total 24 22 - 32 mEq/L 02/24/2018 21:41 [facility] CREATININE 0.68 0.52 - 1.04 mg/dL 02/24/2018 21:41 [facility] eGFR >60 02/24/2018 21:41 [facility] Comment: Chronic renal impairment is defined as GFR <60 Multiply result by 1.210 for patients. eGFR calculated using the [facility]-traceable MDRD Study Equation. ??(effective 09/29/2014) Anion Gap 10 0 - 18 02/24/2018 21:41 [facility] GLUCOSE - [facility] 98 70 - 100 mg/dL 02/24/2018 21:41 [facility] Potassium 3.8 3.5 - 5.0 mEq/L 02/24/2018 21:41 [facility] Sodium 140 136 - 145 mEq/L 02/24/2018 21:41 [facility] TOTAL PROTEIN - [facility] 7.3 6.2 - 8.2 gm/dL 02/24/2018 21:41 [facility] SGOT/AST - [facility] 20 14 - 36 U/L 02/24/2018 21:41 [facility] SGPT/ALT - [facility] 38 9 - 52 U/L 8 21:41 [facility] 02/24/2018 21:1 1 EDT 02/24/2018 21:22 EDT Narrative [facility] - 02/24/2018 21:42 EDT Does PT Have a Latex Allergy? NO us Santiago Anguiano MD CHEMISTRY & BLOOD GAS ORDER JAD Final Result [facility] * (ABNORMAL) BETA-HCG QUANT(WITH DILUT) - [facility] (02/24/2018 21:11 EDT) Pathologist [facility] BETA-HCG QUANTITATIVE 34(H) <5 mIU/mL 02/24/2018 21:56 EDT [facility] Comment: Negative: ?< 5 Indeterminate: 5-25 (repeated in 48 hrs) Positive: ?> 25 02/24/2018 21:1 1 EDT 02/24/2018 21:22 EDT Narrative [facility] - 02/24/2018 21:56 EDT Does PT Have a Latex Allergy? NO us Santiago Anguiano MD CHEMISTRY & BLOOD GAS ORDER JAD Final Result [facility] * (ABNORMAL) COMPLETE BLOOD COUNT WITH DIFFERENTIAL (AUTO) (02/24/2018 21:11 EDT) [facility] ABSOLUTE NEUTROPHIL COUN - [facility] 6.27 1.7 - 7.0 10e3/ul 02/24/2018 21:45 [facility] BASO # - [facility] 0.03 0.0 - 0.3 10e3/uL 02/24/2018 21:45 [facility] BASO % - [facility] 0 0 - 2 % 02/24/2018 21:45 [facility] EOS # - [facility] 0.15 0.05 - 0.5 10e3/uL 02/24/2018 21:45 [facility] EOS % - [facility] 1 0 - 5 % 02/24/2018 21:45 [facility] GRAN % - [facility] 57 40 - 80 % 02/24/2018 21:45 [facility] HEMATOCRIT - [facility] 37.1 34.0 - 47.0 % 02/24/2018 21:45 [facility] HEMOGLOBIN - CV 12.8 11.2 - 15.7 g/dl 02/24/2018 21:45 [facility] LYMPH # - [facility] 3.78(H) 0.9 - 2.9 10e3/uL 02/24/2018 21:45 [facility] LYMPH% - [facility] 34 20 - 40 % 02/24/2018 21:45 [facility] MEAN CORPUSCULAR HGB - [facility] 29.1 26 - 34 pg 02/24/2018 21:45 [facility] MEAN CORPUSCULAR HGB CONC - [facility] 34.5 31 - 36 g/dL 02/24/2018 21:45 [facility] MEAN CELL VOLUME - [facility] 84.3 77 - 100 fl 02/24/2018 21:45 [facility] MONO # - [facility] 0.82 0.3 - 0.9 10e3/uL 02/24/2018 21:45 [facility] MONO% - [facility] 7 0 - 12 % 02/24/2018 21:45 [facility] PLATELET COUNT 267 150 - 400 10e3/ul 02/24/2018 21:45 [facility] RED BLOOD COUNT - [facility] 4.40 3.8 - 5.2 10e6/ul 02/24/2018 21:45 [facility] RED CELL DISTRI WIDTH - [facility] 12.3 11.8 - 15.6 % 02/24/2018 21:45 [facility] WHITE BLOOD COUNT - [facility] 11.1(H) 3.5 - 10.5 10e3/ul 02/24/2018 21:45 [facility] 02/24/2018 21:1 1 EDT 02/24/2018 21:22 EDT Narrative [facility] - 02/24/2018 21:45 EDT Does PT Have a Latex Allergy? NO us Santiago Anguiano MD HEMATOLOGY & PF4 ORDERABLES Final Result [facility] documented in this encounter Visit Diagnoses Not on filedocumented in this encounter Care Teams Forcer Maker Relationship Specialty Start Date End Date EugenieGill MD PCP - General 11/02/17 05/26/19 Zina Monroy DO PCP - General 05/27/19 08/05/20 documented as of this encounter
--- OUTSIDE RECORDS SUMMARY | 2024-12-08 15:33 | XMS_ITS | Encounter Summary ---
Author Organization [facility] Address [address] [place] [address] Care Team Providers Care Apartment Property Manager Name Role Phone Eugenie, Gill Mejia MD Primary Care Provider [phone] Zina Monroy DO Primary Care Provider [phone] Encounter Details Date Type Department Care Team (Late st Contact Info) Description 10/09/2018 Historical Results Only [facility] Radiology Results [address] [place], [place] [address] Maria Ines Crow MD [address] [facility] [place] [address] Social History Tobacco Use Types Packs/Day Years [...] Hospital Encounter [facility] [place] [address] [place] [address] [phone] Celeste Cooper MD [address] [place] [address] 4 [place] [phone] 12/11/2024 9:25 EST - 12/11/2024 11:40 EST Surgery [facility] OR [address] [place] [address] [phone] Celeste Cooper MD [address] [place] [address] 4 [place] [phone] Laparoscopic left ovarian cystectomy [13309 (CPT??)] 12/31/2024 16:15 EST Post-op Visit [facility] OBGYN Services [address] [phone] Jessika Upton MD [address] [place] [phone] 02/06/2025 13:10 EDT Appointment [facility] [address] [phone] 03/05/2025 8:40 EDT Office Visit [facility] Rheumatology & Immunology [address] [phone] Nikolay Elizabeth MD MPH [address] [place] [address] 5 [place] [phone] Scheduled Procedures Name Priority Associated Diagnoses Date/Ti me LAPAROSCOPY, WITH EXCISION O R FULGURATION OF LESIONS OF OVARY, PELVIC VISCERA, OR PERITONEAL SURFACE Cyst of left ovary 12/11/2024 9:25 EST documented as of this encounter Procedures Procedure Name Priority Date/Time Associated Diagnosis Comments HIV 1/2 AB, P24 AG - [facility] Routine 10/09/2018 10:42 EST COMPLETE BLOOD COUNT WITH DIFFERENTIAL (AUTO) Routine 10/09/2018 10:42 EST RAPID PLASMA REAGIN (RPR) WITH REFLEX, S Routine 10/09/2018 10:42 EST RUBELLA IGG ANTIBODY Routine 10/09/2018 10:42 EST HEPATITIS B SURFACE ANTIBODY Routine 10/09/2018 10:42 EST HEPATITIS B SURFACE ANTIGEN Routine 10/09/2018 10:42 EST TYPE AND SCREEN Routine 10/09/2018 10:42 EST VARICELLA IGG ANTIBODY Routine 10/09/2018 10:42 EST US OB FIRST TRIMESTER (LESS THAN 14 WEEKS) TRANSVAGINAL 10/09/2018 10:27 EST GC/CHLAMYDIA PCR - [facility] Routine 10/09/2018 10:19 EST URINALYSIS/COMPLETE - [facility] Routine 10/09/2018 10:19 EST BACTERIAL CULTURE, URINE Routine 10/09/2018 10:19 EST documented in this encounter Results * RUBELLA IGG ANTIBODY (10/09/2018 10:42 EST) RUBELLA IGG ANTIBODY - [facility] Negative 10/09/2018 12:[address] [facility] Comment: Expected value: Positive The presence of Rubella IgG suggest immunity against rubella 10/09/2018 10:4 2 EST 10/09/2018 10:42 EST [facility] - 10/09/2018 12:35 EST Does PT Have a Latex Allergy? NO Zina Ashli Monroy DO CHEMISTRY & BLOOD GAS ORDERABLE S Final Result Performing Organization Address [facility] Co de Phone Number [facility] * HEPATITIS B SURFACE ANTIGEN (10/09/2018 10:42 EST) Hep B Surface Ag Negative 10/09/2018 12:39 [facility] Comment: Expected Values: ??Negative. The results of this assay can be falsely lowered due to the consumption of Biotin. 10/09/2018 10:4 2 EST 10/09/2018 10:43 EST [facility] - 10/09/2018 19:02 EST AOT: 10/09/18 1804: HEP B SURFACE ANTIBODY Zina Ashli Monroy DO CHEMISTRY & BLOOD GAS ORDERABLE S Final Result Performing Organization Address [facility] de Phone Number [facility] * HEPATITIS B SURFACE ANTIBODY (10/09/2018 10:42 EST) Hep B Surface Ab, Qualitative 0 10/09/2018 19:02 [facility] Comment: ?Interpretative Guidelines < 5.00 mIU/mL = ?Negative Clinical Interpretation of Immune Status: Patient is considered to be not immune to infection with HBV. The results of this assay can be falsely lowered due to the consumption of Biotin. 10/09/2018 10:4 2 EST 10/09/2018 10:43 EST [facility] - 10/09/2018 19:02 EST AOT: 10/09/18 1804: HEP B SURFACE ANTIBODY Zina Ashli Monroy DO CHEMISTRY & BLOOD GAS ORDERABLE S Final Result Performing Organization Address [facility]/ZIP Co de Phone Number [facility] * VARICELLA IGG ANTIBODY (10/09/2018 10:42 EST) Pathologist [facility] Varicella IgG Ab Positive Negative 10/11/2018 21:03 [facility] Comment:Presumed immune to V aricella infection. 10/09/2018 10:4 2 EST 10/09/2018 10:43 EST [facility] - 10/11/2018 21:03 EST Does PT Have a Latex Allergy? NO us Zina Monroy DO IMMUNOLOGY AND SEROLOGY ORDERAB LES Final Result [facility] * COMPLETE BLOOD COUNT WITH DIFFERENTIAL (AUTO) (10/09/2018 10:42 EST) Pathologist [facility] ABSOLUTE NEUTROPHIL COUN - [facility] 6.59 1.7 - 7.0 10e3/ul 10/09/2018 12:03 [facility] BASO # - [facility] 0.02 0.0 - 0.3 10e3/uL 10/09/2018 12:03 [facility] BASO % - [facility] 0 0 - 2 % 10/09/2018 12:03 [facility] EOS # - [facility] 0.11 0.05 - 0.5 10e3/uL 10/09/2018 12:03 [facility] EOS % - [facility] 1 0 - 5 % 10/09/2018 12:03 [facility] GRAN % - [facility] 68 40 - 80 % 10/09/2018 12:03 [facility] HEMATOCRIT - [facility] 37.7 34.0 - 47.0 % 10/09/2018 12:03 [facility] HEMOGLOBIN - [facility] 12.6 11.2 - 15.7 g/dl 10/09/2018 12:03 [facility] IG# - [facility] 0.05 0 - 0.07 10e3/uL 10/09/2018 12:03 [facility] IG% - [facility] 0.5 0 - 0.9 % 10/09/2018 12:03 [facility] LYMPH # - [facility] 2.23 0.9 - 2.9 10e3/uL 10/09/2018 12:03 [facility] LYMPH% - [facility] 23 20 - 40 % 10/09/2018 12:03 [facility] MEAN CORPUSCULAR HGB - [facility] 27.9 26 - 34 pg 10/09/2018 12:03 [facility] MEAN CORPUSCULAR HGB CONC - [facility] 33.4 31 - 36 g/dL 10/09/2018 12:03 [facility] MEAN CELL VOLUME - [facility] 83.4 77 - 100 fl 10/09/2018 12:03 [facility] MONO # - [facility] 0.76 0.3 - 0.9 10e3/uL 10/09/2018 12:03 [facility] MONO% - [facility] 8 0 - 12 % 10/09/2018 12:03 [facility] PLATELET COUNT 252 150 - 400 10e3/ul 10/09/2018 12:03 [facility] RED BLOOD COUNT - [facility] 4.52 3.8 - 5.2 10e6/ul 10/09/2018 12:03 [facility] RED CELL DISTRI WIDTH - [facility] 12.7 11.8 - 15.6 % 10/09/2018 12:03 [facility] WHITE BLOOD COUNT - [facility] 9.8 3.5 - 10.5 10e3/ul 10/09/2018 12:03 [facility] 10/09/2018 10:4 2 EST 10/09/2018 10:[address] [facility] - 10/09/2018 12:03 EST Does PT Have a Latex Allergy? NO us Zina Monroy DO HEMATOLOGY & PF4 ORDERABLES Fin al Result [facility] * HIV 1/2 AB, P24 AG - [facility] (10/09/2018 10:42 EST) HIV 1/2 AB, P24 AG - [facility] Negative NEGAT 10/10/2018 12:22 [facility] Comment: ?? Fourth generation assay performed on the Siemens TVShow Timeaur. If acute HIV-1 infection is suspected in a high risk patient, submit plasma specimen for HIV-1 RNA quantification test. ?? Test Performed by: [place] [id number] 10/09/2018 10:4 2 EST 10/09/2018 10:[address] [facility] - 10/10/2018 12:22 EST Does PT Have a Latex Allergy? NO Zina Monroy DO CHEMISTRY & BLOOD GAS ORDERABLE S Final Result [facility] * RAPID PLASMA REAGIN (RPR) WITH REFLEX, S (10/09/2018 10:42 EST) [facility] APID PLASMA REAGIN [facility] Nonreactive NEG 10/11/2018 8:[address] [facility] 10/09/2018 10:4 2 EST 10/09/2018 10:[address] [facility] - 10/11/2018 8:42 EST Does PT Have a Latex Allergy? NO Zina Monroy DO IMMUNOLOGY AND SEROLOGY ORDERAB LES Final Result Performing Organization Address City/[facility]/ZIP Co de Phone Number [facility] * TYPE AND SCREEN (10/09/2018 10:42 EST) Pathologist [facility] BLOOD TYPE - [facility] O Positive [facility] Antibody Screen NEGATIVE [facility] Comment: PATIENT'S RESPONSES INDICATE A HISTORY OF SURGERY, TRANSFUSION OR WITHIN THE LAST 3 MONTHS. FOR BLOOD PRODUCTS, THIS SPECIMEN WILL OUTDATE 72 HOURS FROM THE TIME IT WAS COLLECTED. ??ANY BLOOD PRODUCTS ORDERED AFTER 72 HOURS MUST BE WORKED UP ON A NEW SPECIMEN. Specimen Expires: 10/12/18 @7264 [facility] 10/09/2018 10:4 2 EST 10/09/2018 10:[address] [facility] - 10/09/2018 10:40 EST Does PT Have a Latex Allergy? NO IS THIS A PREOPERATIVE PATIENT? N us Zina Monroy DO BLOOD BANK TESTS Final Result [facility] * US OB FIRST TRIMESTER (LESS THAN 14 WEEKS) TRANSVAGINAL (10/09/2018 10:27 EST) Anatomical Region Laterality Modality Pelvis Other 10/09/2018 10:2 7 EST Narrative 10/10/2018 15:56 EST ? EXAM: ULTRASOUND/TRANSVAGINAL - OB (LEVEL EX. D/ (1027) ? CLINICAL INFORMATION: ? Z33.1, STATE, INCIDENTAL ? DATING AND VIABILITY ? See attached report. ??Report also available in PACS. ? JSP:[email or web address] ?Reported By: Garrison Ragsdale MD ? CC: ? Transcribed Date/Time: 10/10/2018 (6716) ? Information Systems Technician: DC ? Printed Date/Time: 05/19/2019 (9567) ? PAGE 1 ? Signed Report ? Procedure Note Garrison Ragsdale MD - 10/03/2019 EXAM: ULTRASOUND/TRANSVAGINAL - OB (LEVEL EX. D/ (1027) CLINICAL INFORMATION: Z33.1, STATE, INCIDENTAL DATING AND VIABILITY See attached report. Report also available in PACS. [email or web address] Reported By: Garrison Ragsdale MD CC: Transcribed Date/Time: 10/10/2018 (6644) Information Systems Technician: DC Printed Date/Time: 05/19/2019 (2553) PAGE 1 Signed Report Maria Ines Crow MD IMG US OB ORDERABLES Final Re sult * BACTERIAL CULTURE, URINE (10/09/2018 10:19 EST) Pathologist [facility] USUAL UROGENITAL BEENA - [facility] UUV 10/11/2018 11:[address] [facility] CitrateConcentration <10,000 CFU/ML 09/27 11:[address] [facility] 10/09/2018 10:1 9 EST 10/09/2018 14:46 EST Comment:VOID Maria Ines Crow MD MICROBIOLOGY - GENERAL ORDERA BLES Final Result [facility] * GC/CHLAMYDIA PCR - [facility] (10/09/2018 10:19 EST) CHLAMYDIA PCR - [facility] NOT DETECTED 10/09/2018 17:[address] [facility] GONORRHEA PCR - [facility] NOT DETECTED 10/09/2018 17:[address] [facility] SOURCE CERVIX 10/09/2018 17:[address] [facility] 10/09/2018 10:1 9 EST 10/09/2018 14:47 EST us Maria Ines Crow MD CHEMISTRY & BLOOD GAS ORDERAB LES Final Result [facility] * URINALYSIS/COMPLETE - [facility] (10/09/2018 10:19 EST) URINE APPEARANCE - [facility] Cloudy CLEAR 10/09/2018 15:10 [facility] URINE AMORPH CRYSTAL - [facility] TNTC 10/09/2018 15:25 [facility] URINE BACTERIA - [facility] RARE 10/09/2018 15:25 [facility] URINE BILIRUBIN - DIPSTICK - [facility] Negative NEGATIVE 10/09/2018 15:10 [facility] URINE BLOOD - [facility] 1+ NEG 10/09/2018 15:10 [facility] URINE COLOR - [facility] Yellow YELLOW 10/09/2018 15:10 [facility] URINE GLUCOSE - DIP[place] - [facility] Negative NEGATIVE 10/09/2018 15:10 [facility] URINE KETONE - [facility] Negative NEGATIVE 10/09/2018 15:10 [facility] URINE LEUK ESTERASE - [facility] Negative NEG 10/09/2018 15:10 [facility] URINE NITRITE - [facility] - [facility] Negative NEG 10/09/2018 15:10 [facility] URINE PH - [facility] 6.5 4.0 - 8.0 8 15:10 [facility] URINE PROTEIN - [facility] - [facility] Negative NEG 10/09/2018 15:10 [facility] URINE RBC - [facility] RARE rbc/hpf 10/09/20 18 15:25 [facility] URINE SPECIFIC GRAVITY - [facility] >=1.030 1.001 - 1.035 10/09/2018 15:10 [facility] URINE SQUAMOUS CELLS - [facility] RARE NEG #/hpf 10/09/2018 15:25 [facility] URINE UROBILINOGEN - [facility] - [facility] 0.2 0.2 - 1.0 10/09/2018 15:10 [facility] URINE WBC - [facility] NEG NEG wbc/hpf 018 15:[address] [facility] 10/09/2018 10:1 9 EST 10/09/2018 14:46 EST us Maria Ines Crow MD CHEMISTRY & BLOOD GAS ORDERAB LES Final Result [facility] documented in this encounter Visit Diagnoses Not on filedocumented in this encounter Care Teams Apartment Property Manager Relationship Specialty Start Date End Date Gill Traore MD PCP - General 11/02/17 05/26/19 Zina Monroy DO PCP - General 05/27/19 08/05/20 documented as of this encounter
--- OUTSIDE RECORDS SUMMARY | 2024-12-08 15:33 | XMS_ITS | Encounter Summary ---
Author Organization [facility] Address [address] [place] [address] Care Team Providers Care Lockstitch Lining Setter Name Role Phone Eugenie, Gill Mejia MD Primary Care Provider [phone] Encounter Details Date Type Department Care Team (Latest Contact Info) Description 06/19/2018 10:15 EDT - 06/19/2018 23:59 EDT Hospital Encounter [facility] [address] [place] [address] Unknown, Provider, MD Discharge Disposition: Home or Self Care Social History Tobacco Use Types Packs/Day Years Used Date Smoking Tobacco: Never Smokeless Tobacco: Never Comments Unknown Sex and Gender Information Value [...] 14:07 EDT documented in this encounter Discharge Disposition Disposition Code Departure Means Destination Home or Self Residential documented in this encounter Plan of Treatment Upcoming Encounters Date Type Department Care Team (Late st Contact Info) Description 12/11/2024 9:25 EST Hospital Encounter [facility] [place] [address] [place] [address] [phone] Celeste Cooper MD [address] [place] [address] [address] [place] [phone] 12/11/2024 9:25 EST - 12/11/2024 11:40 EST Surgery [facility] [place] [address] [place] [address] [phone] Celeste Cooper MD [address] [place] [address] [address] [place] [phone] Laparoscopic left ovarian cystectomy [85838 (CPT??)] 12/31/2024 16:15 EST Post-op Visit [facility] OBGYN Services - [address] [phone] Jessika Upton MD [address] [place] [address] [phone] 02/06/2025 13:10 EDT Appointment [facility] OBGYN Services [address] [phone] 03/05/2025 8:40 EDT Office Visit [facility] Rheumatology & Immunology - [address] [phone] Nikolay Elizabeth MD [address] [place] [phone] Scheduled Procedures Name Priority Associated Diagnoses Date/Ti me LAPAROSCOPY, WITH EXCISION O R FULGURATION OF LESIONS OF OVARY, PELVIC VISCERA, OR PERITONEAL SURFACE Cyst of left ovary 12/11/2024 9:25 EST documented as of this encounter Visit Diagnoses Not on filedocumented in this encounter Care Teams Lockstitch Lining Setter Relationship Specialty Start Date End Date EugenieGill MD PCP - General 11/02/17 05/26/19 documented as of this encounter
--- OUTSIDE RECORDS SUMMARY | 2024-12-08 15:33 | XMS_ITS | Encounter Summary ---
Author Organization [facility] Address [address] [place] [address] Care Team Providers Care Electrical Technician Name Role Phone Eugenie, Gill Mejia MD Primary Care Provider [phone] Zina Monroy DO Primary Care Provider [phone] Encounter Details Date Type Department Care Team (Late st Contact Info) Description 10/04/2018 Historical Results Only [facility] - [facility] - [place] [address] [place] [phone] James Peck MD Social History Tobacco Use Types Packs/Day Years [...] Info) Description 12/11/2024 9:25 EST Hospital Encounter [facility] OR [address] [place] [address] [phone] Celeste Cooper MD [address] [place] [address] 4 [place] [phone] 12/11/2024 9:25 EST - 12/11/2024 11:40 EST Surgery [facility] OR [address] [place] [address] [phone] Celeste Cooper MD [address] [place] [address] [phone] Laparoscopic left ovarian cystectomy [27972 (CPT??)] 12/31/2024 16:15 EST Post-op Visit [facility] OBGYN Services - [address] [phone] Jessika Upton MD [address] [place] [phone] 02/06/2025 13:10 EDT Appointment [facility] OBGYN Services [address] [phone] 03/05/2025 8:40 EDT Office Visit [facility] Rheumatology & Immunology - [address] [phone] Nikolay Elizabeth MD MPH [address] [place] [address] 5 [place] [phone] Scheduled Procedures Name Priority Associated Diagnoses Date/Ti me LAPAROSCOPY, WITH EXCISION O R FULGURATION OF LESIONS OF OVARY, PELVIC VISCERA, OR PERITONEAL SURFACE Cyst of left ovary 12/11/2024 9:25 EST documented as of this encounter Procedures Procedure Name Priority Date/Time Associated Diagnosis Comments BASIC METABOLIC PANEL (BMP) Routine 10/04/2018 13:10 EST documented in this encounter Results * BASIC METABOLIC PANEL (BMP) (10/04/2018 13:10 EST) BUN - [facility] 12 10 - 26 mg/dL 10/04/2018 13:36 [facility] CALCIUM - [facility] 9.7 8.5 - 10.5 mg/dL 10/04/2018 13:36 [facility] Chloride 105 96 - 110 mmol/L 10/04/2018 13:36 [facility] CO2 Total 22 22 - 32 mEq/L 10/04/2018 13:36 [facility] CREATININE 0.52 0.52 - 1.04 mg/dL 10/04/2018 13:36 [facility] eGFR >60 10/04/2018 13:36 [facility] Comment: Chronic renal impairment is defined as GFR <60 Multiply result by 1.210 for patients. eGFR calculated using the IDMS-traceable MDRD Study Equation. ??(effective 09/29/2014) Anion Gap 9 0 - 18 10/04/2018 13:36 [facility] GLUCOSE - [facility] 85 70 - 100 mg/dL 10/04/2018 13:36 [facility] Potassium 3.8 3.5 - 5.0 mEq/L 10/04/2018 13:36 [facility] Sodium 136 136 - 145 mEq/L 10/04/2018 13:36 [facility] 10/04/2018 13:1 0 EST 10/04/2018 13:16 EST us James Peck MD CHEMISTRY & BLOOD GAS ORDERABL ES Final Result [facility] documented in this encounter Visit Diagnoses Not on filedocumented in this encounter Care Teams Electrical Technician Relationship Specialty Start Date End Date Gill Traore MD PCP - General 11/02/17 05/26/19 Zina Monroy DO PCP - General 05/27/19 08/05/20 documented as of this encounter
--- OUTSIDE RECORDS SUMMARY | 2024-12-08 15:33 | XMS_ITS | Encounter Summary ---
Author Organization [facility] Address [address] [place] [address] Care Team Providers Care Road Monkey Name Role Phone Eugenie, Gill Mejia MD Primary Care Provider [phone] Zina Monryo DO Primary Care Provider [phone] Encounter Details Date Type Department Care Team (Late st Contact Info) Description 05/29/2018 Historical Results Only [facility] Radiology Results [address] [place] [address] [place] [address] [phone] Social History Tobacco Use Types Packs/Day Years [...] Description 12/11/2024 9:25 EST Hospital Encounter [facility] OR [address] [place] [address] [phone] Celeste Cooper MD [address] [place] [address] 4 [place] [phone] 12/11/2024 9:25 EST - 12/11/2024 11:40 EST Surgery [facility] OR [address] [place] [address] [phone] Celeste Cooper MD [address] [place] [address] 4 [place] [phone] Laparoscopic left ovarian cystectomy [31180 (CPT??)] 12/31/2024 16:15 EST Post-op Visit [facility] - [address] [phone] Jessika Upton MD [address] [place] [phone] 02/06/2025 13:10 EDT Appointment [facility] - [address] [phone] 03/05/2025 8:40 EDT Office Visit [facility] Rheumatology & Immunology - [address] [phone] Nikolay Elizabeth MD MPH [address] [place] [address] 5 [place] [phone] Scheduled Procedures Name Priority Associated Diagnoses Date/Ti me LAPAROSCOPY, WITH EXCISION O R FULGURATION OF LESIONS OF OVARY, PELVIC VISCERA, OR PERITONEAL SURFACE Cyst of left ovary 12/11/2024 9:25 EST documented as of this encounter Procedures Procedure Name Priority Date/Time Associated Diagnosis Comments MR ANKLE WO CONTRAST RIGHT 05/29/2018 16:12 EDT documented in this encounter Results * MR ANKLE WO CONTRAST RIGHT (05/29/2018 16:12 EDT) Anatomical Region Laterality Modality Lower Extremities Right Other 05/29/2018 16:1 2 EDT Narrative 05/29/2018 16:16 EDT ? EXAM: MAGNETIC RESONANCE IMAGING/ANKLE RT EX. D/ (1309) ? CLINICAL INFORMATION: ? M25.571 RIGHT ANKLE PAIN ? R/O PTFL, ATFL, CFL TEAR ? ANKLE RT W/O CONTRAST ? Signs and Symptoms/Comments: M25.571 RIGHT ANKLE PAIN, R/O PTFL, ? ATFL, CFL TEAR ? Comparison: Right ankle radiographs on 04/17/2018. ? Technique: Noncontrast MR of the right ankle was performed with the ? following sequences: Sagittal T1, sagittal STIR, axial proton ? density, axial T2 fat-sat, coronal proton density, coronal T2 ? fat-sat. ? FINDINGS: ? Distal Tibiofibular Syndesmosis: The anterior inferior and posterior ? inferior tibiofibular ligaments are intact. ? Lateral Ligamentous Complex: The anterior talofibular ligament is ? markedly thickened and indistinct, compatible with high-grade sprain ? and/or tearing (axial T2 fat sat image 16). No significant ? ligamentous retraction is visible. The calcaneofibular ligament is ? thinned and indistinct, suspicious for partial-thickness tearing. The ? posterior talofibular ligament appears grossly intact. ? Medial Ligamentous Complex: The deltoid ligament is intact. The ? spring ligament is intact. ? Peroneal Tendons: The peroneus longus and brevis tendons are intact. ? Achilles Tendon: The Achilles tendon is intact. Kager's fat pad is ? clear. ? Flexor Tendons: The posterior tibial, flexor digitorum longus, and ? flexor hallucis longus tendons are intact. ? Extensor Tendons: The anterior tibial, extensor hallucis longus, and ? extensor digitorum longus tendons are intact. ? Plantar Fascia: The visible portion of the plantar fascia is ? unremarkable. ? Sinus Tarsi: The sinus tarsi is unremarkable. ? Alignment: Anatomic. The Lisfranc osteoligamentous complex is intact. ? Bone Marrow: Unremarkable. ? Cartilage: The chondral surfaces of the ankle and hindfoot are ? unremarkable. ? Supporting Soft Tissues: The soft tissues along the lateral aspect of ? PAGE 1 ? Signed Report ? (CONTINUED) ? the ankle are mildly swollen. No drainable fluid collection is ? identified. ? IMPRESSION: ? 1. ??High-grade ATFL sprain versus tearing. No significant ligamentous ? retraction. ? 2. ??Suspect partial-thickness CFL tearing. ? 3. ??PTFL appears intact. ? 4. ??Lateral ankle soft tissue swelling. ? REPORT SIGNED IN OTHER VENDOR SYSTEM 05/29/2018 ?Reported By: Lopez Escalona MD ? CC: ? Transcribed Date/Time: 05/29/2018 (1616) ? House Rn: SCR ? Printed Date/Time: 05/17/2019 (1246) ? PAGE 2 ? Signed Report ? Procedure Note Lopez Escalona MD - 10/03/2019 EXAM: MAGNETIC RESONANCE IMAGING/ANKLE RT EX. D/ (1309) CLINICAL INFORMATION: M25.571 RIGHT ANKLE PAIN R/O PTFL, ATFL, CFL TEAR ANKLE RT W/O CONTRAST Signs and Symptoms/Comments: M25.571 RIGHT ANKLE PAIN, R/O PTFL, ATFL, CFL TEAR Comparison: Right ankle radiographs on 04/17/2018. Technique: Noncontrast MR of the right ankle was performed with the following sequences: Sagittal T1, sagittal STIR, axial proton density, axial T2 fat-sat, coronal proton density, coronal T2 fat-sat. FINDINGS: Distal Tibiofibular Syndesmosis: The anterior inferior andposterior inferior tibiofibular ligaments are intact. Lateral Ligamentous Complex: The anterior talofibular ligament is markedly thickened and indistinct, compatible with high-gradesprain and/or tearing (axial T2 fat sat image 16). No significant ligamentous retraction is visible. The calcaneofibular ligament is thinned and indistinct, suspicious for partial-thickness tearing.The posterior talofibular ligament appears grossly intact. Medial Ligamentous Complex: The deltoid ligament is intact. The spring ligament is intact. Peroneal Tendons: The peroneus longus and brevis tendons areintact. Achilles Tendon: The Achilles tendon is intact. Kager's fat pad is clear. Flexor Tendons: The posterior tibial, flexor digitorum longus, and flexor hallucis longus tendons are intact. Extensor Tendons: The anterior tibial, extensor hallucis longus,and extensor digitorum longus tendons are intact. Plantar Fascia: The visible portion of the plantar fascia is unremarkable. Sinus Tarsi: The sinus tarsi is unremarkable. Alignment: Anatomic. The Lisfranc osteoligamentous complex isintact. Bone Marrow: Unremarkable. Cartilage: The chondral surfaces of the ankle and hindfoot are unremarkable. Supporting Soft Tissues: The soft tissues along the lateral aspectof PAGE 1 Signed Report (CONTINUED) the ankle are mildly swollen. No drainable fluid collection is identified. IMPRESSION: 1. High-grade ATFL sprain versus tearing. No significantligamentous retraction. 2. Suspect partial-thickness CFL tearing. 3. PTFL appears intact. 4. Lateral ankle soft tissue swelling. REPORT SIGNED IN OTHER VENDOR SYSTEM 05/29/2018 Reported By: Lopez Escalona MD CC: Transcribed Date/Time: 05/29/2018 (1616) House Rn: Printed Date/Time: 05/17/2019 (5946) PAGE 2 Signed Report Zina Monroy DO IMG MRI ORDERABLES Final Result documented in this encounter Visit Diagnoses Not on filedocumented in this encounter Care Teams Road Monkey Relationship Specialty Start Date End Date EugenieGill MD PCP - General 11/02/17 05/26/19 Zina Monroy DO PCP - General 05/27/19 08/05/20 documented as of this encounter
--- OUTSIDE RECORDS SUMMARY | 2024-12-08 15:33 | XMS_ITS | Encounter Summary ---
Author Organization [facility] Address [address] [place] [address] Care Team Providers Care Rehabilitation Services Coordinator Name Role Phone Eugenie, Gill Mejia MD Primary Care Provider Zina Monroy DO Primary Care Provider [phone] Encounter Details Date Type Department Care Team (Late st Contact Info) Description 04/17/2018 Historical Results Only [facility] Radiology Results [address] [place], [place] [address] Zina Mckeon MD [address] [facility] [address] [place], [place] 512[address] Social History Tobacco Use Types Packs/Day Years [...] Info) Description 12/11/2024 9:25 EST Hospital Encounter [facility] OR [address] [place] [address] [phone] Celeste Cooper MD [address] [place] [address] 4 [place] [phone] 12/11/2024 9:25 EST - 12/11/2024 11:40 EST Surgery [facility] OR [address] [place] [address] [phone] Celeste Cooper MD [address] [place] [address] 4 [place] [phone] Laparoscopic left ovarian cystectomy [62109 (CPT??)] 12/31/2024 16:15 EST Post-op Visit [facility] [address] [phone] Jessika Upton MD [address] [place] [address] [phone] 02/06/2025 13:10 EDT Appointment [facility] [address] [phone] 03/05/2025 8:40 EDT Office Visit [facility] Rheumatology & Immunology - [address] [phone] Nikolay Elizabeth MD MPH [address] [place] [address] 5 [place] [phone] Scheduled Procedures Name Priority Associated Diagnoses Date/Ti me LAPAROSCOPY, WITH EXCISION O R FULGURATION OF LESIONS OF OVARY, PELVIC VISCERA, OR PERITONEAL SURFACE Cyst of left ovary 12/11/2024 9:25 EST documented as of this encounter Procedures Procedure Name Priority Date/Time Associated Diagnosis Comments XR ANKLE RIGHT 3 OR MORE VIEWS 04/17/2018 12:10 EDT documented in this encounter Results * XR ANKLE RIGHT 3 OR MORE VIEWS (04/17/2018 12:10 EDT) Anatomical Region Laterality Modality Lower Extremities, Ankle Right Other 04/17/2018 12:1 0 EDT Narrative 04/17/2018 12:14 EDT ? EXAM: RADIOLOGY EXPRESS CARE/EXP CARE ANK EX. D/ (1207) ? CLINICAL INFORMATION: ? TWIST INJURY 04/16; LATERAL ANKLE PAIN ? INDICATION: TWIST INJURY 04/16; LATERAL ANKLE PAIN, INJURY OF RIGHT ? ANKLE, INITIAL ENCOUNTER - S99.911A ? RT SPRAINED ANKLE ? TECHNIQUE: 3 views of the right ankle. ? COMPARISON: None. ? FINDINGS: The right ankle is well aligned. No acute fractures seen. ? The talar dome is intact. The proximal head of the 5th metatarsal is ? unremarkable. ? IMPRESSION: ? 1. No acute osseous injury detected. ? REPORT SIGNED IN OTHER VENDOR SYSTEM 04/17/2018 ?Reported By: Heath Brooks MD ? CC: ? Transcribed Date/Time: 04/17/2018 (7038) ? Fur Repair Inspector: ? Printed Date/Time: 05/17/2019 (4060) ? PAGE 1 ? Signed Report ? Procedure Note Heath Brooks MD - 10/03/2019 EXAM: RADIOLOGY EXPRESS CARE/EXP CARE ANK EX. D/ (1207) CLINICAL INFORMATION: TWIST INJURY 04/16; LATERAL ANKLE PAIN INDICATION: TWIST INJURY 04/16; LATERAL ANKLE PAIN, INJURY OF RIGHT ANKLE, INITIAL ENCOUNTER - S99.911A ? RT SPRAINED ANKLE TECHNIQUE: 3 views of the right ankle. COMPARISON: None. FINDINGS: The right ankle is well aligned. No acute fractures seen. The talar dome is intact. The proximal head of the 5th metatarsalis unremarkable. IMPRESSION: 1. No acute osseous injury detected. REPORT SIGNED IN OTHER VENDOR SYSTEM 04/17/2018 Reported By: Haeth Brooks MD CC: Transcribed Date/Time: 04/17/2018 (0858) Fur Repair Inspector: Printed Date/Time: 05/17/2019 (9126) PAGE 1 Signed Report Zina Mckeon MD IMG DIAGNOSTIC IMAGING ORDERAB LES Final Result documented in this encounter Visit Diagnoses Not on filedocumented in this encounter Care Teams Rehabilitation Services Coordinator Relationship Specialty Start Date End Date Gill Traore MD PCP - General 11/02/17 05/26/19 Zina Monroy DO PCP - General 05/27/19 08/05/20 documented as of this encounter
--- OUTSIDE RECORDS SUMMARY | 2024-12-08 15:33 | XMS_ITS | Encounter Summary ---
Author Organization [facility] Address [address] [place] [address] Care Team Providers Care Staff Educator Name Role Phone Soniya Tomlinson Primary Care Provider [phone] Encounter Details Date Type Department Care Team (Latest Contact Info) Description 12/02/2016 11:16 EST - 12/02/2016 23:59 EST Hospital Encounter [facility] [address] [place] [address] Unknown, Provider, MD Discharge Disposition: Home or Self Care Social History Tobacco Use Types Packs/Day Years Used Date Smoking Tobacco: Never Assessed Comments Unknown Sex and Gender Information Value Date Recorded Sex Assigned at Female 11/06/2024 15:56 EST Legal Sex Female 15:52 EDT Gender Identity Female 11/12/2019 14:09 EST Sexual Orientation Not on file documented as of this encounter Discharge Disposition Disposition Code Departure Means Destination Home or Self [facility] documented in this encounter Plan of Treatment Upcoming Encounters Date Type Department Care Team (Late st Contact Info) Description 12/11/2024 9:25 EST Hospital Encounter [facility] OR [address] [place] [phone] Celeste Cooper MD [address] [place] [address], [address] [place] [phone] 12/11/2024 9:25 EST - 12/11/2024 11:40 EST Surgery [facility] OR [address] [place] [phone] Celeste Cooper MD [address] [facility], [address] [place] [phone] Laparoscopic left ovarian cystectomy [36448 (CPT??)] 12/31/2024 16:15 EST Post-op Visit [facility] Services [address] [phone] Jessika Upton MD [address] [place] [address] [phone] 02/06/2025 13:10 EDT Appointment [facility] [address] [phone] 03/05/2025 8:40 EDT Office Visit [facility] Rheumatology & Immunology [address] [phone] Nikolay Elizabeth MD MPH [address] [place] [address], [facility] [address] [place] [phone] Scheduled Procedures Name Priority Associated Diagnoses Date/Ti me LAPAROSCOPY, WITH EXCISION O R FULGURATION OF LESIONS OF OVARY, PELVIC VISCERA, OR PERITONEAL SURFACE Cyst of left ovary 12/11/2024 9:25 EST documented as of this encounter Visit Diagnoses Not on filedocumented in this encounter Care Teams Staff Educator Relationship Specialty Start Date End Date Soniya Tomlinson PA [address] [place] [phone] PCP - General 03/12/14 10/31/17 documented as of this encounter
--- OUTSIDE RECORDS SUMMARY | 2024-12-08 15:33 | XMS_ITS | Encounter Summary ---
Author Organization [facility] Address [address] [place] [address] Care Team Providers Care Road Tester Name Role Phone Eugenie, Gill Mejia MD Primary Care Provider [phone] Zina Monroy DO Primary Care Provider [phone] Encounter Details Date Type Department Care Team (Late st Contact Info) Description 06/19/2018 Historical Results Only [facility] Radiology Results [address] [place] [address] Fatou Rivas PA-C [address] [place] [phone] Social History Tobacco Use Types Packs/Day Years [...] EST Hospital Encounter [facility] OR [address] [place] [address] [phone] Celeste Cooper MD [address] [place] [address] 4 [place] [phone] 12/11/2024 9:25 EST - 12/11/2024 11:40 EST Surgery [facility] OR [address] [place] [address] [phone] Celeste Cooper MD [address] [place] [address] 4 [place] [phone] Laparoscopic left ovarian cystectomy [67480 (CPT??)] 12/31/2024 16:15 EST Post-op Visit [facility] [address] [phone] Jessika Upton MD [address] [place] [address] [phone] 02/06/2025 13:10 EDT Appointment [facility] [address] [phone] 03/05/2025 8:40 EDT Office Visit [facility] Rheumatology & Immunology [address] [phone] Nikolay Elizabeth MD MPH [address] [place] [address] 5 [place] [phone] Scheduled Procedures Name Priority Associated Diagnoses Date/Ti me LAPAROSCOPY, WITH EXCISION O R FULGURATION OF LESIONS OF OVARY, PELVIC VISCERA, OR PERITONEAL SURFACE Cyst of left ovary 12/11/2024 9:25 EST documented as of this encounter Procedures Procedure Name Priority Date/Time Associated Diagnosis Comments XR ANKLE RIGHT 2 VIEWS 06/19/2018 15:26 EDT documented in this encounter Results * XR ANKLE RIGHT 2 VIEWS (06/19/2018 15:26 EDT) Anatomical Region Laterality Modality Lower Extremities, Ankle Right Other 06/19/2018 15:2 6 EDT Narrative 06/19/2018 15:29 EDT ? EXAM: RADIOLOGY/ANKLE RIGHT 2 VIEW ?EX. D/ (1456) ? CLINICAL INFORMATION: ? ANKLE PAIN, RIGHT M25.571 ? ANKLE RIGHT 2 VIEW ? Signs and Symptoms/Comments: ??ANKLE PAIN, RIGHT M25.571 ? Comparison: 04/17/2018 ? FINDINGS: ? Right ankle: Two stressed views were performed. There is apparent ? mild widening of the medial and lateral clear spaces on the stressed ? views, compatible with ligamentous laxity versus injury. No acute ? fracture is visible on the views provided. No significant ? degenerative changes are present. The medial and lateral soft tissues ? are swollen. ? IMPRESSION: ? Medial and lateral ankle ligamentous laxity versus injury. ? REPORT SIGNED IN OTHER VENDOR SYSTEM 06/19/2018 ?Reported By: Lopez Escalona MD ? CC: ? Transcribed Date/Time: 06/19/2018 (1529) ? Parquetry Layer: ? Printed Date/Time: 05/17/2019 (8544) ? PAGE 1 ? Signed Report ? Procedure Note Lopez Escalona MD - 10/03/2019 EXAM: RADIOLOGY/ANKLE RIGHT 2 VIEW EX. D/ (2876) CLINICAL INFORMATION: ANKLE PAIN, RIGHT M25.571 ANKLE RIGHT 2 VIEW Signs and Symptoms/Comments: ANKLE PAIN, RIGHT M25.571 Comparison: 04/17/2018 FINDINGS: Right ankle: Two stressed views were performed. There is apparent mild widening of the medial and lateral clear spaces on thestressed views, compatible with ligamentous laxity versus injury. No acute fracture is visible on the views provided. No significant degenerative changes are present. The medial and lateral softtissues are swollen. IMPRESSION: Medial and lateral ankle ligamentous laxity versus injury. REPORT SIGNED IN OTHER VENDOR SYSTEM 06/19/2018 Reported By: Lopez Escalona MD CC: Transcribed Date/Time: 06/19/2018 (1529) Parquetry Layer: Printed Date/Time: 05/17/2019 (6873) PAGE 1 Signed Report Result [facility] Fatou Rivas PA-C Tk DIAGNOSTIC IMAGING ORDERABLES Final Result documented in this encounter Visit Diagnoses Not on filedocumented in this encounter Care Teams Road Tester Relationship Specialty Start Date End Date Gill Traore MD PCP - General 11/02/17 05/26/19 Zina Monroy DO PCP - General 05/27/19 08/05/20 documented as of this encounter
--- OUTSIDE RECORDS SUMMARY | 2024-12-08 15:33 | XMS_ITS | Encounter Summary ---
Author Organization Health system Address [address] [place] [address] Care Team Providers Care Welding Machine Setter Name Role Phone Soniya Tomlinson Primary Care Provider [phone] Unknown, Provider Primary Care Provider Gill Saenz MD Primary Care Provider [phone] Zina Monroy DO Primary Care Provider [phone] Encounter Details Date Type Department Care Team (Late Contact Info) Description 10/25/[address] [facility] Radiology Results [address] [place] [address] Ness Mcfarlane, RN [address] [place] [phone] Social History Tobacco Use Types Packs/Day Years Used Date Smoking Tobacco: Never Assessed AUDIT-C Answer Date Recorded Frequency of Alcohol [...] as of this encounter Plan of Treatment Upcoming Encounters Date Type Department Care Team ([facility] Contact Info) Description 12/11/2024 9:25 EST Hospital Encounter [facility] [place] [address] [place] [address] [phone] Celeste Cooper MD [address] [place] [address] 4 [place] [phone] 12/11/2024 9:25 EST - 12/11/2024 11:40 EST Surgery [facility] OR [address] [place] [address] [phone] Celeste Cooper MD [address] [place] [address] 4 [place] [phone] Laparoscopic left ovarian cystectomy [78110 (CPT??)] 12/31/2024 16:15 EST Post-op Visit [facility] OBGYN Services [address] [address] Jessika Upton MD [address] [place] [phone] 02/06/2025 13:10 EDT Appointment [facility] Services [address] [phone] 03/05/2025 8:40 EDT Office Visit [facility] Rheumatology & Immunology - [address] [phone] Nikolay Elizabeth MD MPH [address] [place] [address], [facility] [address] [place] [phone] Scheduled Procedures Name Priority Associated Diagnoses Date/Ti me LAPAROSCOPY, WITH EXCISION O R FULGURATION OF LESIONS OF OVARY, PELVIC VISCERA, OR PERITONEAL SURFACE Cyst of left ovary 12/11/2024 9:25 EST documented as of this encounter Procedures Procedure Name Priority Date/Time Associated Diagnosis Comments US PELVIS TRANSVAGINAL COMPLETE 10/25/2017 14:46 EST /[place]IA [place] [facility] [place] 10/25/2017 13:48 EST documented in this encounter Results * US PELVIS TRANSVAGINAL (10/25/2017 14:46 EST) Anatomical Region Laterality Modality Pelvis Other 10/25/2017 14:4 6 EST Narrative 10/25/2017 14:49 EST ? EXAM: ULTRASOUND/TRANSVAGINAL - NEUROLOGY TECH ? EX. D/ (1402) ? CLINICAL INFORMATION: ? N94.6, DYMENORRHEA ? ENLARGED LEFT OVARY ? TRANSVAGINAL - NEUROLOGY TECH ? Signs and Symptoms/Comments: ??N94.6, DYSMENORRHEA, ENLARGED LEFT ? OVARY ? Comparison: None ? Technique: Transvaginal pelvic ultrasound was performed with color ? Doppler imaging. ? FINDINGS: ? Uterus: ? Orientation: Anteverted. ? Size: 6.7 x 3.5 x 2.7 cm ? Findings: None. ? Cervix: Normal. ? Endometrium: ? Echotexture: Homogeneous. ? Thickness: 6.9 mm (Premenopausal per patient) ? Ovaries: ? Right ovary: ? Size: 3.9 x 2.1 x 1.7 cm. ? Doppler flow: Color Doppler flow is present. ? Findings: None. ? Left ovary: ? Size: 3.5 x 3.2 x 2.5 cm. ? Doppler flow: Color Doppler flow is present. ? Findings: Simple cyst measuring 2.1 cm. ? Cul-de-sac: No free fluid. ? IMPRESSION: ? 1. ??Simple 2.1 cm left ovarian cyst. No imaging follow-up required ? for this finding in a patient of this age. ? PAGE 1 ? Signed Report ? (CONTINUED) ? 2. ??Otherwise unremarkable pelvic ultrasound.. ? REPORT SIGNED IN OTHER VENDOR SYSTEM 10/25/2017 ?Reported By: Lopez Escalona MD ? CC: ? Transcribed Date/Time: 10/25/2017 (1449) ? Resource Agent: [email or web address] ? Printed Date/Time: 05/15/2019 (1143) ? PAGE 2 ? Signed Report ? Procedure Note Lopez Escalona MD - 10/02/2019 EXAM: ULTRASOUND/TRANSVAGINAL - NEUROLOGY TECH EX. D/ (1402) CLINICAL INFORMATION: N94.6, DYMENORRHEA ENLARGED LEFT OVARY TRANSVAGINAL - NEUROLOGY TECH Signs and Symptoms/Comments: N94.6, DYSMENORRHEA, ENLARGED LEFT OVARY Comparison: None Technique: Transvaginal pelvic ultrasound was performed with color Doppler imaging. FINDINGS: Uterus: Orientation: Anteverted. Size: 6.7 x 3.5 x 2.7 cm Findings: None. Cervix: Normal. Endometrium: Echotexture: Homogeneous. Thickness: 6.9 mm (Premenopausal per patient) Ovaries: Right ovary: Size: 3.9 x 2.1 x 1.7 cm. Doppler flow: Color Doppler flow is present. Findings: None. Left ovary: Size: 3.5 x 3.2 x 2.5 cm. Doppler flow: Color Doppler flow is present. Findings: Simple cyst measuring 2.1 cm. Cul-de-sac: No free fluid. IMPRESSION: 1. Simple 2.1 cm left ovarian cyst. No imaging follow-up required for this finding in a patient of this age. PAGE 1 Signed Report (CONTINUED) 2. Otherwise unremarkable pelvic ultrasound.. REPORT SIGNED IN OTHER VENDOR SYSTEM 10/25/2017 Reported By: Lopez Escalona MD CC: Transcribed Date/Time: 10/25/2017 (8450) Resource Agent: Printed Date/Time: 05/15/2019 (6359) PAGE 2 Signed Report Ness Mcfarlane RN IMG US OB ORDERABLES Final Re sult * GC/[place]AM[place]IA PCR [place] [facility] (10/25/2017 13:48 EST) CHLAMYDIA PCR - CV NOT DETECTED 10/25/2017 17:56 EST [facility] GONORRHEA PCR - [facility] NOT DETECTED 10/25/2017 17:56 EST [facility] SOURCE CERVIX 10/25/2017 17:56 EST [facility] 10/25/2017 13:4 8 EST 10/25/2017 15:33 EST Ness Mcfarlane RN CHEMISTRY & BLOOD GAS ORDERAB LES Final Result [facility] documented in this encounter Visit Diagnoses Not on filedocumented in this encounter Care Teams Welding Machine Setter Relationship Specialty Start Date End Date Soniya Tomlinson PA [address] [place] [phone] PCP - General 03/12/14 10/31/17 Unknown, Provider, [address] [place] [address] PCP - General 11/01/17 7 EugenieGill MD [address] [place] [phone] PCP - General 11/02/17 05/26/19 Zina Monroy DO [address] [place] [phone] PCP - General 05/27/19 08/05/20 documented as of this encounter
--- OUTSIDE RECORDS SUMMARY | 2024-12-08 15:33 | XMS_ITS | Encounter Summary ---
Author Organization [facility] Address [address] [place] [address] Care Team Providers Care Lead Bi Developer Name Role Phone Soniya Tomlinson Primary Care Provider [phone] Unknown, Provider Primary Care Provider Gill Saenz MD Primary Care Provider [phone] Zina Monroy DO Primary Care Provider [phone] Encounter Details Date Type Department Care Team (Late st Contact Info) Description 10/10/2016 Historical Results Only [facility] - Main [place] [address] [place], [place] [phone] Soniya Tomlinson PA [address] [place] [phone] Social History Tobacco Use Types Packs/Day Years [...] 9:25 EST Hospital Encounter [facility] OR [address] [place] [address] [phone] Celeste Cooper MD [address] [place] [address], [facility] [address] [place] [phone] 12/11/2024 9:25 EST - 12/11/2024 11:40 EST Surgery [facility] OR [address] [place] [address]2001 Celeste Cooper MD [address] [place] [address] 4 [place] [phone] Laparoscopic left ovarian cystectomy [40178 (CPT??)] 12/31/2024 16:15 EST Post-op Visit [facility] OBGYN Services [address] [address] Jessika Upton MD [address] [place] [phone] 02/06/2025 13:10 EDT Appointment [facility] [address] [phone] 03/05/2025 8:40 EDT Office Visit [facility] Rheumatology & Immunology - [address] [phone] Nikolay Elizabeth MD MPH [address] [place] [address], [facility] [address] [place] [phone] Scheduled Procedures Name Priority Associated Diagnoses Date/Ti me LAPAROSCOPY, WITH EXCISION O R FULGURATION OF LESIONS OF OVARY, PELVIC VISCERA, OR PERITONEAL SURFACE Cyst of left ovary 12/11/2024 9:25 EST documented as of this encounter Procedures Procedure Name Priority Date/Time Associated Diagnosis Comments FREE T4 POC - [facility] Routine 10/10/2016 13 :20 EST documented in this encounter Results * FREE T4 POC - [facility] (10/10/2016 13:20 EST) FREE T4 - [facility] 0.77 0.58 - 1.64 ng/dl 10/11/2016 13:25 EST [facility] 10/10/2016 13:2 0 EST 10/10/2016 13:20 EST Soniya CLIFFORD CHEMISTRY & BLOOD GAS ORDERABLES Final Result [facility] documented in this encounter Visit Diagnoses Not on filedocumented in this encounter Care Teams Lead Bi Developer Relationship Specialty Start Date End Date Soniya Tomlinson PA [address] [place] [phone] PCP - General 03/12/14 10/31/17 Unknown, Provider, [address] [place] [phone] PCP - General 11/01/17 7 EugenieGill MD [address] [place] [phone] PCP - General 11/02/17 05/26/19 Zina Monroy DO [address] [place] [phone] PCP - General 05/27/19 08/05/20 documented as of this encounter
--- OUTSIDE RECORDS SUMMARY | 2024-12-08 15:33 | XMS_ITS | Encounter Summary ---
Author Organization [facility] Address [address] [place] [address] Care Team Providers Care Morgue Attendant Name Role Phone Eugenie, Gill Mejia MD Primary Care Provider [phone] Zina Monroy DO Primary Care Provider [phone] Encounter Details Date Type Department Care Team (Late st Contact Info) Description 12/11/2018 Historical Results Only [facility] - [facility] - Main [place] [address] [place] [address] [place] [address] [phone] Social History Tobacco Use Types Packs/Day Years [...] Info) Description 12/11/2024 9:25 EST Hospital Encounter [facility] OR [address] [place] [address] [phone] Celeste Cooper MD [address] [place] [address] 4 [place] [phone] 12/11/2024 9:25 EST - 12/11/2024 11:40 EST Surgery [facility] OR [address] [place] [address] [phone] Celeste Cooper MD [address] [place] [address] 4 [place] [phone] Laparoscopic left ovarian cystectomy [96104 (CPT??)] 12/31/2024 16:15 EST Post-op Visit [facility] OBGYN Services [address] [phone] Jessika Upton MD [address] [place] [phone] 02/06/2025 13:10 EDT Appointment [facility] OBGYN Services [address] [phone] 03/05/2025 8:40 EDT Office Visit [facility] Rheumatology & Immunology [address] [phone] Nioklay Elizabeth MD MPH [address] [place] [address] 5 [place] [phone] Scheduled Procedures Name Priority Associated Diagnoses Date/Ti me LAPAROSCOPY, WITH EXCISION O R FULGURATION OF LESIONS OF OVARY, PELVIC VISCERA, OR PERITONEAL SURFACE Cyst of left ovary 12/11/2024 9:25 EST documented as of this encounter Procedures Procedure Name Priority Date/Time Associated Diagnosis Comments RHEUMATOID SCREEN/TITRE Routine 12/11/2018 9:26 EST COMPLETE BLOOD COUNT WITH DIFFERENTIAL (AUTO) Routine 12/11/2018 9:26 EST THYROID CASCADE Routine 12/11/2018 9:26 EST C REACTIVE PROTEIN Routine 12/11/2018 9: 26 EST C REACTIVE PROTEIN Routine 12/11/2018 9: 26 EST COMPREHENSIVE METABOLIC PANEL (CMP) Routine 12/11/2018 9:26 EST documented in this encounter Results * C REACTIVE PROTEIN (12/11/2018 9:26 EST) C-Reactive Protein <5.0 <10.0 mg/L 12/11/2018 18:17 EST [facility] 12/11/2018 9:26 EST 12/11/2018 17:34 EST us Zina Monroy DO CHEMISTRY & BLOOD GAS ORDERABLE S Final Result [facility] * COMPREHENSIVE METABOLIC PANEL (CMP) (12/11/2018 9:26 EST) Albumin % 4.9 3.4 - 4.9 g/dL 12/11/2018 18:17 EST [facility] ALKALINE PHOSPHATASE - [facility] 57 38 - 126 U/L 12/11/2018 18:17 [facility] BILIRUBIN TOTAL 0.5 0.2 - 1.3 mg/dL 12/11/2018 18:17 [facility] BUN - [facility] 17 10 - 26 mg/dL 12/11/2018 18:17 [facility] CALCIUM - [facility] 10.3 8.5 - 10.5 mg/dL 12/11/2018 18:17 [facility] Chloride 103 96 - 110 mmol/L 12/11/2018 18:17 [facility] CO2 Total 27 22 - 32 mEq/L 12/11/2018 18:17 [facility] CREATININE 0.75 0.52 - 1.04 mg/dL 12/11/2018 18:17 [facility] eGFR >60 12/11/2018 18:17 [facility] Comment: Chronic renal impairment is defined as GFR <60 Multiply result by 1.210 for patients. eGFR calculated using the IDMS-traceable MDRD Study Equation. ??(effective 09/29/2014) Anion Gap 11 0 - 18 12/11/2018 18:17 [facility] GLUCOSE - [facility] 92 70 - 100 mg/dL 12/11/2018 18:17 [facility] Potassium 4.3 3.5 - 5.0 mEq/L 12/11/2018 18:17 [facility] Sodium 141 136 - 145 mEq/L 12/11/2018 18:17 [facility] TOTAL PROTEIN - [facility] 7.8 6.2 - 8.2 gm/dL 12/11/2018 18:17 [facility] SGOT/AST - [facility] 36 14 - 36 U/L 12/11/2018 18:17 [facility] SGPT/ALT - [facility] 35 9 - 52 U/L 9 18:17 [facility] 12/11/2018 9:26 EST 12/11/2018 17:34 EST us Zina Monroy DO CHEMISTRY & BLOOD GAS ORDERABLE S Final Result [facility] * THYROID CASCADE (12/11/2018 9:26 EST) TSH 2.51 0.46 - 4.68 uIU/mL 12/11/2018 18:45 [facility] 12/11/2018 9:26 EST 12/11/2018 17:34 EST Zina Ashli Monroy DO CHEMISTRY & BLOOD GAS ORDERABLE S Final Result [facility] * C REACTIVE PROTEIN (12/11/2018 9:26 EST) SED RATE - [facility] 6 1 - 17 mm/hr 12/11/2018 18:49 [facility] 12/11/2018 9:26 EST 12/11/2018 17:35 EST Zina Ashli Monroy DO CHEMISTRY & BLOOD GAS ORDERABLE S Final Result Performing Organization Address [facility] Co de Phone Number [facility] * COMPLETE BLOOD COUNT WITH DIFFERENTIAL (AUTO) (12/11/2018 9:26 EST) ABSOLUTE NEUTROPHIL COUN - [facility] 2.9 2.2 - 8.85 10e3/uL 12/11/2018 18:00 [facility] BASO # - [facility] 0.05 0.01 - 0.11 10e/uL 12/11/2018 18:00 [facility] BASO % - [facility] 1 0 - 2 % 12/11/2018 18:00 [facility] EOS # - [facility] 0.17 0.03 - 0.61 10e3/ul 12/11/2018 18:00 [facility] EOS % - [facility] 3 0 - 5 % 12/11/2018 18:00 [facility] GRAN % - [facility] 48.8 40 - 80 % 12/11/2018 18:00 [facility] HEMATOCRIT - [facility] 41.4 39.4 - 44.4 % 12/11/2018 18:00 [facility] HEMOGLOBIN - [facility] 13.6 11.6 - 15.2 g/dl 12/11/2018 18:00 [facility] IG# - [facility] 0.01 0 - 0.7 10e3/uL 12/11/2018 18:00 [facility] IG% - [facility] 0.2 0 - 0.9 % 12/11/2018 18:00 [facility] LYMPH # - [facility] 2.2 1.09 - 3.3 10e3/ul 12/11/2018 18:00 [facility] LYMPH% - [facility] 37.6 20 - 40 % 12/11/2018 18:00 [facility] MEAN CORPUSCULAR HGB - [facility] 27.8 26.7 - 33.3 pg 12/11/2018 18:00 [facility] MEAN CORPUSCULAR HGB CONC - [facility] 32.9 32.1 - 35.9 g/dL 12/11/2018 18:00 [facility] MEAN CELL VOLUME - [facility] 84.5 81 - 98 fl 12/11/2018 18:00 [facility] MONO # - [facility] 0.6 0.1 - 0.8 10e3/uL 12/11/2018 18:00 [facility] MONO% - [facility] 9.7 0 - 12 % 12/11/2018 18:00 [facility] PLATELET COUNT 296 141 - 377 10e3/ul 12/11/2018 18:00 [facility] RED BLOOD COUNT - [facility] 4.90 3.86 - 5.04 10e3/ul 12/11/2018 18:00 [facility] RED CELL DISTRI WIDTH - [facility] 12.4 <14.7 % 12/11/2018 18:00 [facility] WHITE BLOOD COUNT - [facility] 6.0 4.0 - 12.4 10e3/ul 12/11/2018 18:00 [facility] 12/11/2018 9:26 EST 12/11/2018 17:35 EST us Zina Monroy DO HEMATOLOGY & PF4 ORDERABLES Fin al Result [facility] * RHEUMATOID SCREEN/TITRE - [facility] (12/11/2018 9:26 EST) RHEUMATOID FACTOR SCREEN - [facility] NEG NEG 12/11/2018 19:36 EST [facility] 12/11/2018 9:26 EST 12/11/2018 17:35 EST us Zina Monroy DO CHEMISTRY & BLOOD GAS ORDERABLE S Final Result [facility] documented in this encounter Visit Diagnoses Not on filedocumented in this encounter Care Teams Morgue Attendant Relationship Specialty Start Date End Date EugenieGill MD PCP - General 11/02/17 05/26/19 Zina Monroy DO PCP - General 05/27/19 08/05/20 documented as of this encounter
--- OUTSIDE RECORDS SUMMARY | 2024-12-08 15:33 | XMS_ITS | Encounter Summary ---
Author Organization [facility] Address [address] [place] [address] Care Team Providers Care Intelligence Manager Name Role Phone Eugenie, Gill Mejia MD Primary Care Provider [phone] Encounter Details Date Type Department Care Team (Latest Contact Info) Description 03/06/2018 9:44 EDT - 03/06/2018 23:59 EDT Hospital Encounter [facility] [address] [place] [address] Unknown, Provider, MD Discharge Disposition: Home or [...] Code Departure Means Destination Home or Self Assisted documented in this encounter Plan of Treatment Upcoming Encounters Date Type Department Care Team (Late st Contact Info) Description 12/11/2024 9:25 EST Hospital Encounter [facility] OR [address] [place] [address] [phone] Celeste Cooper MD [address] [place] [address] 4 [place] [phone] 12/11/2024 9:25 EST - 12/11/2024 11:40 EST Surgery [facility] OR [address] [place] [address] [phone] Celeste Cooper MD [address] [place] [address] 4 [place] [phone] Laparoscopic left ovarian cystectomy [22787 (CPT??)] 12/31/2024 16:15 EST Post-op Visit [facility] OBGYN Services - [address] [address] Jessika Upton MD [address] [place] [phone] 02/06/2025 13:10 EDT Appointment [facility] [address] [phone] 03/05/2025 8:40 EDT Office Visit [facility] Rheumatology & Immunology - [address] [phone] Nikolay Elizabeth MD [address] [place] [phone] Scheduled Procedures Name Priority Associated Diagnoses Date/Ti me LAPAROSCOPY, WITH EXCISION O R FULGURATION OF LESIONS OF OVARY, PELVIC VISCERA, OR PERITONEAL SURFACE Cyst of left ovary 12/11/2024 9:25 EST documented as of this encounter Visit Diagnoses Not on filedocumented in this encounter Care Teams Intelligence Manager Relationship Specialty Start Date End Date EugenieGill MD PCP - General 11/02/17 05/26/19 documented as of this encounter
--- OUTSIDE RECORDS SUMMARY | 2024-12-08 15:33 | XMS_ITS | Encounter Summary ---
Author Organization [facility] Address [address] [place] [address] Care Team Providers Care Biosecurity Officer Name Role Phone Soniya Tomlnison Primary Care Provider Encounter Details Date Type Department Care Team (Latest Contact Info) Description 10/25/2017 14:28 EST - 10/25/2017 23:59 EST Hospital Encounter [facility] [address] [place] [address] Unknown, Provider, MD Discharge Disposition: Home or [...] Code Departure Means Destination Home or Self Senior Living documented in this encounter Plan of Treatment Upcoming Encounters Date Type Department Care Team (Late st Contact Info) Description 12/11/2024 9:25 EST Hospital Encounter [facility] OR [address] [place] [address] Celeste Cooper MD [address] [place] [address], Level [address] [place] [phone] 12/11/2024 9:25 EST - 12/11/2024 11:40 EST Surgery [facility] OR [address] [place] [phone] Celeste Cooper MD [address] [facility], Level [address] [place] [phone] Laparoscopic left ovarian cystectomy [94348 (CPT??)] 12/31/2024 16:15 EST Post-op Visit [facility] OBGYN Services [address] [phone] Jessika Upton MD [address] [place] [phone] 02/06/2025 13:10 EDT Appointment [facility] OBGYN Services [address] [phone] 03/05/2025 8:40 EDT Office Visit [facility] Rheumatology & Immunology [address] [phone] Nikolay Elizabeth MD MPH [address] [place] [address], [facility] [address] [place] [phone] Scheduled Procedures Name Priority Associated Diagnoses Date/Ti me LAPAROSCOPY, WITH EXCISION O R FULGURATION OF LESIONS OF OVARY, PELVIC VISCERA, OR PERITONEAL SURFACE Cyst of left ovary 12/11/2024 9:25 EST documented as of this encounter Visit Diagnoses Not on filedocumented in this encounter Care Teams Biosecurity Officer Relationship Specialty Start Date End Date Soniya Tomlinson PA [address] [place] [phone] PCP - General 03/12/14 10/31/17 documented as of this encounter
--- OUTSIDE RECORDS SUMMARY | 2024-12-08 15:33 | XMS_ITS | Encounter Summary ---
Author Organization [facility] Address [address] [place] [address] Care Team Providers Care Coating Manager Name Role Phone Gill Traore MD Primary Care Provider [phone] Reason for Visit * Reason Comments Anxiety The wellbutrin is ma amy me more anxious and shakey Depression My inability to get anything done makes my depression so much worse * Consult (Routine) - Closed Specialty Diagnoses / Procedures Referred By Seema kapoor Referred To Contact Psychiatry Diagnoses ADHD Gill Traore MD Phone: tel: fax: [facility] Psychiatry S [address] [address] Phone: tel: fax: Referral ID Status Reason Start Date Expiration Date Visits Re quested Visits Authorized [id number] Closed 1 1 Encounter Details Date Type Department Care Team (Latest Contact Info) Description 11/02/2017 12:15 EST Office Visit [facility] Psychiatry S [address] [address] Sydney Villagran NP [address] [place] [address] [address] [place] [address] Depression, major, recurrent, moderate (CMS-HCC) (HCC-CMS) (Primary Dx); Attention deficit hyperactivity disorder (ADHD), predominantly inattentive type; PTSD (post-traumatic stress disorder) Discharge Disposition: Auto Discharge Social History Tobacco Use Types Packs/Day Years Used Date Smoking Tobacco: Never Assessed Comments Unknown Sex and Gender Information Value Date Recorded Sex Assigned at Female 11/06/2024 15:56 EST Legal Sex Female 15:52 EDT Gender Identity Female 11/12/2019 14:09 EST Sexual Orientation Not on file documented as of this encounter Discharge Diagnoses Diagnosis F33.1 Major depressive disorder, recurrent, moderate-F33.1[ICD-10-CM] F90.0 Attention-deficit hyperactivity disorder, predominantly inattentive type-F90.0[ICD-10-CM] F43.10 Post-traumatic stress disorder, unspecified-F43.10[ICD-10-CM] documented in this encounter Patient Instructions * Patient Instructions* Sydney Villagran - 11/02/2017 12:15 EST Recommendations: Decrease Wellbutrin XL 150 mg orally for about 1 week and then discontinue Start Strattera titration 10 mg orally for week, then increase 18 mg orally for 1 week while monitoring mood. Should you tolerate Strattera 18 mg orally with breakfast, titrate upward as indicated toachieve dose range of 60 mg -100 mg orally with breakfast. Should you feel that you mood is becoming more irritable or anxious, your PCP should consider stopping Strattera in favor of a mood stabilizer such as Lamictal titration and revisit ADHD diagnosis once mood is more stable. Should Strattera not be helpful but does not worsen mood, consider Concerta titration for ADHD symptoms but continue to monitor for mood dysregulation documented in this encounter Discharge Disposition Disposition Code Departure Means Destination Auto Discharge documented in this encounter Plan of Treatment Upcoming Encounters Date Type Department Care Team (Late st Contact Info) Description 12/11/2024 9:25 EST Hospital Encounter [facility] OR [address] [place], [place] [phone] Celeste Cooper MD [address] [facility], [facility], Level [address] [place] [phone] 12/11/2024 9:25 EST - 12/11/2024 11:40 EST Surgery [facility] OR [address] [place] [address] [phone] Celeste Cooper MD [address] [place] [address] 4 [place] [phone] Laparoscopic left ovarian cystectomy [08076 (CPT??)] 12/31/2024 16:15 EST Post-op Visit [facility] OBGYN Services [address] [id number] Jessika Upton MD [address] [place] [phone] 02/06/2025 13:10 EDT Appointment [facility] OBGYN Services [address] [phone] 03/05/2025 8:40 EDT Office Visit [facility] Rheumatology & Immunology [address] [phone] Nikolay Elizabeth MD MPH [address] [place] [address] 5 [place] [phone] Scheduled Procedures Name Priority Associated Diagnoses Date/Ti me LAPAROSCOPY, WITH EXCISION O R FULGURATION OF LESIONS OF OVARY, PELVIC VISCERA, OR PERITONEAL SURFACE Cyst of left ovary 12/11/2024 9:25 EST documented as of this encounter Visit Diagnoses Diagnosis Depression, major, recurrent, moderate (HCC-CMS)- Primary Major depressive disorder, recurrent episode, moderate Attention deficit hyperactivity disorder (ADHD), predominantly inattentive type PTSD (post-traumatic stress disorder) Posttraumatic stress disorder Cyst of left ovary Other and unspecified ovarian cyst documented in this encounter Care Teams Coating Manager Relationship Specialty Start Date End Date EugenieGill MD PCP - General 11/02/17 05/26/19 documented as of this encounter
--- OUTSIDE RECORDS SUMMARY | 2024-12-08 15:33 | XMS_ITS | Encounter Summary ---
Author Organization [facility] Address [address] [place] [address] Care Team Providers Care Stock Preparation Supervisor Name Role Phone Eugenie, Gill Mejia MD Primary Care Provider [phone] Znia Monroy DO Primary Care Provider [phone] Encounter Details Date Type Department Care Team (Late st Contact Info) Description 10/01/2018 Historical Results Only [facility] Radiology Results [address] [place], [place] [address] Ismael Huerta MD [address] [place] [address] Social History Tobacco Use Types Packs/Day [...] EST Hospital Encounter [facility] OR [address] [place] [address] [phone] Celeste Cooper MD [address] [place] [address] 4 [place] [phone] 12/11/2024 9:25 EST - 12/11/2024 11:40 EST Surgery [facility] OR [address] [place] [phone] Celeste Cooper MD [address] [place] [phone] Laparoscopic left ovarian cystectomy [61547 (CPT??)] 12/31/2024 16:15 EST Post-op Visit [facility] [place] [facility] OBGYN Services - [address] [phone] Jessika Upton MD [address] [place] [phone] 02/06/2025 13:10 EDT Appointment [facility] [place] [facility] OBGYN Services - [address] [phone] 03/05/2025 8:40 EDT Office Visit [facility] [place] [facility] Rheumatology & Immunology - [address] [phone] Nikolay Elizabeth MD MPH [address] [place] [address] 5 [place] [phone] Scheduled Procedures Name Priority Associated Diagnoses Date/Ti me LAPAROSCOPY, WITH EXCISION O R FULGURATION OF LESIONS OF OVARY, PELVIC VISCERA, OR PERITONEAL SURFACE Cyst of left ovary 12/11/2024 9:25 EST documented as of this encounter Procedures Procedure Name Priority Date/Time Associated Diagnosis Comments US OB FIRST TRIMESTER (LESS THAN 14 WEEKS) TRANSVAGINAL 10/01/2018 18:27 EST SPEC W/O ORDERS - [facility] Routine 10/01/2018 17:09 EST GC/CHLAMYDIA PCR - [facility] Routine 10/01/2018 16:55 EST WET PREP Routine 10/01/2018 16:55 EST BETA-HCG QUANT(WITH DILUT) - [facility] Routine 10/01/2018 16:30 EST COMPLETE BLOOD COUNT WITH DIFFERENTIAL (AUTO) Routine 10/01/2018 16:30 EST ABO/RH Routine 10/01/2018 16:30 EST documented in this encounter Results * US OB FIRST TRIMESTER (LESS THAN 14 WEEKS) TRANSVAGINAL (10/01/2018 18:27 EST) Anatomical Region Laterality Modality Pelvis Other 10/01/2018 18:2 7 EST Narrative 10/01/2018 18:27 EST ? EXAM: ULTRASOUND/TRANSVAGINAL - OB (LEVEL EX. D/ (1737) ? CLINICAL INFORMATION: ? approx 7 ??5/7 weeks, L groin pain, lighheaded, R/O ectopic ? EXAM: ?US , Transvaginal ? EXAM DATE/TIME: ?10/01/2018 4:22 PM ? CLINICAL HISTORY: ?23 years old, female; Pain; complicated by abdominal ? or pelvic pain; Left lower quadrant; First trimester; ? Gestational age or lmp: Lmp 08/08/2018; ; Additional ? info: Approx 7 5/7 weeks, l groin pain, lighheaded, R/O ectopic ? TECHNIQUE: ?Real-time transvaginal obstetrical ultrasound of the maternal ? pelvis and a first trimester with image documentation. ? Transvaginal imaging was used for better evaluation of the fetus ? and adnexa. ? COMPARISON: ?US TRANSVAGINAL - OB (LEVEL 1) 03/06/2018 3:01 PM ? FINDINGS: ?Other findings: ??Right ovary unremarkable. 2.9 cm simple cyst ? left ovary. ? GESTATION: ?Gestation: Intrauterine gestation. ?Heart rate: ?? cardiac motion is identified, with a heart ? rate of 214 beats/min. ?Placenta: Unremarkable. No subchorionic bleed. ? BIOMETRY: ?Estimated gestational age: ??IUP at the fundus of the uterus ? with a CRL of 0.27 cm corresponding to an estimated gestational ? age of 5 weeks 6 dy. ? IMPRESSION: ? Single living IUP. tachycardia. ? REPORT SIGNED IN OTHER VENDOR SYSTEM 10/01/2018 ?Reported By: Franki Alfred MD ? CC: ? Transcribed Date/Time: 10/01/2018 (1837) ? Tractor Trailer Truck Driver: ? Printed Date/Time: 05/19/2019 (6858) ? PAGE 1 ? Signed Report ? Procedure Note Franki Alfred - 10/03/2019 EXAM: ULTRASOUND/TRANSVAGINAL - OB (LEVEL EX. D/ (1737) CLINICAL INFORMATION: approx 7 5/7 weeks, L groin pain, lighheaded, R/O ectopic EXAM: US , Transvaginal EXAM DATE/TIME: 10/01/2018 4:22 PM CLINICAL HISTORY: 23 years old, female; Pain; complicated by abdominal or pelvic pain; Left lower quadrant; First trimester; Gestational age or lmp: Lmp 08/08/2018; ; Additional info: Approx 7 5/7 weeks, l groin pain, lighheaded, R/O ectopic TECHNIQUE: Real-time transvaginal obstetrical ultrasound of the maternal pelvis and a first trimester with image documentation. Transvaginal imaging was used for better evaluation of the fetus and adnexa. COMPARISON: US TRANSVAGINAL - OB (LEVEL 1) 03/06/2018 3:01 PM FINDINGS: Other findings: Right ovary unremarkable. 2.9 cm simple cyst left ovary. GESTATION: Gestation: Intrauterine gestation. Heart rate: cardiac motion is identified, with a heart rate of 214 beats/min. Placenta: Unremarkable. No subchorionic bleed. BIOMETRY: Estimated gestational age: IUP at the fundus of the uterus with a CRL of 0.27 cm corresponding to an estimated gestational age of 5 weeks 6 dy. IMPRESSION: Single living IUP. tachycardia. REPORT SIGNED IN OTHER VENDOR SYSTEM 10/01/2018 Reported By: Franki Alfred MD CC: Transcribed Date/Time: 10/01/2018 (1827) Tractor Trailer Truck Driver: Printed Date/Time: 05/19/2019 (1299) PAGE 1 Signed Report Ismael Huerta MD [facility] OB ORDERABLES Юлия l Result * SPEC W/O ORDERS - [facility] (10/01/2018 17:09 EST) [facility] Signature SPEC W/O ORDERS - [facility] SEE NOTE 10/01/2018 17:09 [facility] Comment: ?Emergency Room Specimen(s) without Orders These specimens will be discarded in 4 hours: GC/CHLAM ?? WET PREP 10/01/2018 17:0 9 EST 10/01/2018 17:09 EST French Joesphjen DO CHEMISTRY & BLOOD GAS ORDERABL ES Final Result Performing Organization Address [facility]/ZIP Co de Phone Number [facility] * WET PREP (10/01/2018 16:55 EST) CLUE CELLS - [facility] NO CLUE CELLS SEEN 10/01/2018 17:49 [facility] SPERM NO SPERM SEEN 10/01/2018 17:49 [facility] TRICHOMONAS - [facility] NO TRICHOMONAS SEEN 10/01/2018 17:49 [facility] YEAST - [facility] NO YEAST SEEN 8 17:49 [facility] 10/01/2018 16:5 5 EST 10/01/2018 17:21 EST Ismael Huerta MD MICROBIOLOGY - GENERAL OR DERABLES Final Result Performing Organization Address [facility]/ZIP Co de Phone Number [facility] * GC/CHLAMYDIA PCR - [facility] (10/01/2018 16:55 EST) CHLAMYDIA PCR - [facility] 10/01/2018 19:58 [facility] Comment: 10/01/181957: ??Amended Report ??CHLAMYDIA PCR previously reported as: INVALID ??Reason: GONORRHEA PCR - [facility] 10/01/2018 19:58 [facility] Comment: 10/01/181957: ??Amended Report ??GONORRHEA PCR previously reported as: INVALID ??Reason: SOURCE CERVIX 10/01/2018 19:55 [facility] 10/01/2018 16:5 5 EST 10/01/2018 17:21 EST Ismael Huerta MD CHEMISTRY & BLOOD GAS ORD ERABLES Final Result [facility] * (ABNORMAL) BETA-HCG QUANT(WITH DILUT) - [facility] (10/01/2018 16:30 EST) [facility] BETA-HCG QUANTITATIVE 67,547(H) <5 mIU/mL 10/01/2018 17:39 [facility] Comment: Negative: ?< 5 Indeterminate: 5-25 (repeated in 48 hrs) Positive: ?> 25 The results of this assay can be falsely lowered due to the consumption of Biotin. 10/01/2018 16:3 0 EST 10/01/2018 16:40 EST Ismael Huerta MD CHEMISTRY & BLOOD GAS ORD ERABLES Final Result Performing Organization Address [facility]/ZIP Co de Phone Number [facility] * (ABNORMAL) COMPLETE BLOOD COUNT WITH DIFFERENTIAL (AUTO) (10/01/2018 16:30 EST) [facility] ABSOLUTE NEUTROPHIL COUN - [facility] 6.98 1.7 - 7.0 10e3/ul 10/01/2018 16:45 [facility] BASO # - [facility] 0.03 0.0 - 0.3 10e3/uL 10/01/2018 16:45 [facility] BASO % - [facility] 0 0 - 2 % 10/01/2018 16:45 [facility] EOS # - [facility] 0.08 0.05 - 0.5 10e3/uL 10/01/2018 16:45 [facility] EOS % - [facility] 1 0 - 5 % 10/01/2018 16:45 [facility] GRAN % - [facility] 67 40 - 80 % 10/01/2018 16:45 [facility] HEMATOCRIT - [facility] 38.2 34.0 - 47.0 % 10/01/2018 16:45 [facility] HEMOGLOBIN - [facility] 13.0 11.2 - 15.7 g/dl 10/01/2018 16:45 [facility] IG# - CV 0.03 0 - 0.07 10e3/uL 10/01/2018 16:45 [facility] IG% - [facility] 0.3 0 - 0.9 % 10/01/2018 16:45 [facility] LYMPH # - [facility] 2.44 0.9 - 2.9 10e3/uL 10/01/2018 16:45 [facility] LYMPH% - MC 23 20 - 40 % 10/01/2018 16:45 [facility] MEAN CORPUSCULAR HGB - [facility] 28.3 26 - 34 pg 10/01/2018 16:45 [facility] MEAN CORPUSCULAR HGB CONC - [facility] 34.0 31 - 36 g/dL 10/01/2018 16:45 [facility] MEAN CELL VOLUME - [facility] 83.2 77 - 100 fl 10/01/2018 16:45 [facility] MONO # - [facility] 0.92(H) 0.3 - 0.9 10e3/uL 10/01/2018 16:45 [facility] MONO% - [facility] 9 0 - 12 % 10/01/2018 16:45 [facility] PLATELET COUNT 234 150 - 400 10e3/ul 10/01/2018 16:45 [facility] RED BLOOD COUNT - [facility] 4.59 3.8 - 5.2 10e6/ul 10/01/2018 16:45 [facility] RED CELL DISTRI WIDTH - [facility] 12.5 11.8 - 15.6 % 10/01/2018 16:45 [facility] WHITE BLOOD COUNT - [facility] 10.5 3.5 - 10.5 10e3/ul 10/01/2018 16:45 [facility] 10/01/2018 16:3 0 EST 10/01/2018 16:40 EST us Ismael Huerta MD HEMATOLOGY & PF4 ORDERABL ES Final Result [facility] * ABO/RH (10/01/2018 16:30 EST) BLOOD TYPE - [facility] O Positive [facility] 10/01/2018 16:3 0 EST 10/01/2018 16:40 EST us Ismael Huerta MD BLOOD BANK TESTS Final Re sult [facility] documented in this encounter Visit Diagnoses Not on filedocumented in this encounter Care Teams Stock Preparation Supervisor Relationship Specialty Start Date End Date Gill Traore MD PCP - General 11/02/17 05/26/19 Zina Monroy DO PCP - General 05/27/19 08/05/20 documented as of this encounter
--- OUTSIDE RECORDS SUMMARY | 2024-12-08 15:33 | XMS_ITS | Encounter Summary ---
Author Organization [facility] Address [address] [place] [address] Care Team Providers Care Heating Mechanic Name Role Phone Eugenie, Gill Mejia MD Primary Care Provider [phone] Zina Monroy DO Primary Care Provider [phone] Encounter Details Date Type Department Care Team (Late st Contact Info) Description 11/08/2018 Historical Results Only [facility] - Main [place] [address] [place] [id number] Maria Ines Crow MD [address] [facility], [address] [place] [address] Social History Tobacco Use Types [...] Info) Description 12/11/2024 9:25 EST Hospital Encounter [facility] OR [address] [place] [id number] Celeste Cooper MD [address] [place] [address] 4 [place] [phone] 12/11/2024 9:25 EST - 12/11/2024 11:40 EST Surgery [address] [phone] Celeste Cooper MD [address] [place] [address] 4 [place] [phone] Laparoscopic left ovarian cystectomy [07965 (CPT??)] 12/31/2024 16:15 EST Post-op Visit [facility] OBGYN Services [address] [phone] Jessika Upton MD [address] [place] [phone] 02/06/2025 13:10 EDT Appointment [facility] OBGYN Services [address] [phone] 03/05/2025 8:40 EDT Office Visit [facility] Rheumatology & Immunology [address] [phone] Nikolay Elizabeth MD MPH [address] [place] [address] 5 [place] [phone] Scheduled Procedures Name Priority Associated Diagnoses Date/Ti me LAPAROSCOPY, WITH EXCISION O R FULGURATION OF LESIONS OF OVARY, PELVIC VISCERA, OR PERITONEAL SURFACE Cyst of left ovary 12/11/2024 9:25 EST documented as of this encounter Procedures Procedure Name Priority Date/Time Associated Diagnosis Comments SURGICAL PATHOLOGY Routine 11/08/2018 documented in this encounter Results * SURGICAL PATHOLOGY (11/08/2018) 11/08/2018 11/08/2018 13: 29 EST Narrative [facility] - 11/09/2018 13:59 EST ----- ------- [facility] ? : [birth year] ?Age/Sex: 24/F ?Unit#: [id number] ? Loc: SDS ? Status: DEP SDC ?? Reg Date: 11/08/18 ? Pt.Phone Number: ? ----- ------- Specimen: [id number] ? STATUS: SOUT ?Spec Date:11/08/18 ? Physician Copies: ?Glaess,Maria Ines MARIANO ?? Tissues: A ?? -spontaneous/missed ?Abbot,Zina DO ? CPT: 71443 ?? Units: ??1 ?FINAL DIAGNOSIS ? UTERINE CONTENTS, SUCTION CURETTAGE; ? - Chorionic villi and maternal decidua present, consistent with products of ? conception. ? GROSS DESCRIPTION ? Received in formalin labeled with the patient's name and products of ? conception is a suction collection device containing fragments of pink- red ? soft tissue aggregating approximately 20 cc. ??The largest fragment is grossly ? consistent with a portion of placent with identifiable chorionic villi and ? membranes. ??No grape-like chorionic villi are seen. ??The placenta parenchyma is ? pale perera-pink. ?? tissue is not grossly appreciated. ??Co Founder And Ceo ? sections submitted in 3 cassettes. ??CP ?MICROSCOPIC DESCRIPTION ? A microscopic examination has been performed. Signed ____(signature on file)____ MaribethjarodXavier 11/09/18 ? By the signature above, the attending physician certifies that he/she has personally conducted a gross and/or microscopic examination of the described specimens and rendered or confirmed the above diagnosis. Test Performed by [facility], [address] [place] [address] Ticketing Agent: Dulce Rendon MD PHD ----- ------- us Maria Ines Crow MD PATHOLOGY ORDERABLES Final Re sult [facility] documented in this encounter Visit Diagnoses Not on filedocumented in this encounter Care Teams Heating Mechanic Relationship Specialty Start Date End Date Gill Traore MD PCP - General 11/02/17 05/26/19 Zina Monroy DO PCP - General 05/27/19 08/05/20 documented as of this encounter
--- OUTSIDE RECORDS SUMMARY | 2024-12-08 15:33 | XMS_ITS | Encounter Summary ---
Author Organization [facility] Address [address] [place] [address] Care Team Providers Care Suction Operator Name Role Phone Eugenie, Gill Mejia MD Primary Care Provider [phone] Reason for Visit * Reason Comments Arrhythmia New patient visit fo r palpitations and holter results. Encounter Details Date Type Department Care Team (Late st Contact Info) Description 02/15/2018 14:00 EDT Office Visit [facility] Cardiology - [address] [phone] Garrison Laura MD [address] [place] [address] [address] [place] [address] Tachycardia (Primary Dx) Discharge Disposition: Auto Discharge Social History Tobacco [...] Sign Reading Time Taken Comments Blood Pressure 114/84 02/15/2018 1508 EDT standi ng Pulse 90 02/15/2018 1508 EDT Temperature - - Respiratory Rate - - Oxygen Saturation 100% 02/15/2018 1404 EDT Inhaled Oxygen Concentration - - Weight 60.8 kg (134 lb) 02/15/2018 1404 EDT Height 157.5 cm (5' 2) 02/15/2018 1404 EDT Body Mass Index 24.51 02/15/2018 1404 EDT documented in this encounter Functional Status [...] documented in this encounter Discharge Diagnoses Diagnosis R00.0 Tachycardia, unspecified-R00.0[ICD-10-CM] documented in this encounter Discharge Disposition Disposition Code Departure Means Destination Auto Discharge documented in this encounter Progress Notes * Garrison Laura MD - 02/15/2018 1400 EDT Subjective: Patient ID: Ulises Duffy is an 22 y.o. female. Chief Complaint Patient presents with ??? Arrhythmia New patient visit for palpitations and holter results. HPI Ms. Duffy is a pleasant 22-year-old woman who has a remote history of recurrent syncope. She had several episodes of what sounds like vasovagal syncope when she was growing up. She played soccer inhigh school and had no problems whatsoever. At age 20, Ms. Duffy developed symptoms of feeling more winded with less activity. This would be associated with symptoms of tachycardia. These symptoms persisted and have worsened over the past 2 years. Exercise seems to precipitate some of these symptoms. The patient was treated with well. Trend for anxiety/depression. It did not seem to improve her mood and it seemed to increase her episodesof tachycardia. Thereafter, she was diagnosed with ADHD and was placed on a trial of Strattera. Shewas on Strattera for 4 months and did not find an improvement in her mood or functioning. She was also treated with metoprolol because there was concern of tachycardia. She felt poorly on metoprolol metoprolol was discontinued. Holter monitor was performed through [facility]. The report notes that the patient had sinus rhythm or sinus tachycardia. Ms. Duffy denies orthopnea, peripheral edema, or PND. There is no family history of premature cardiac disease. There is no problem list on file for this patient. No past medical history on file. No past surgical history on file. No family history on file. Social Social History Social History ??? Marital status: Single Spouse name: N/A ??? Number of children: N/A ??? Years of education: N/A Occupational History ??? Not on file. Social History Main Topics ??? Smoking status: Never Smoker ??? Smokeless tobacco: Never Used ??? Alcohol use Not on file ??? Drug use: Not on file ??? Sexual activity: Not on file Other Topics Concern ??? Not on file Social History Narrative ??? No narrative on file No current outpatient prescriptions on file prior to visit. No current facility-administered medications on file prior to visit. Allergies Allergen Reactions ??? Novocain [Procaine] Review of Systems Constitutional: Negative for malaise/fatigue and weight loss. Eyes: Negative for blurred vision and double vision. Respiratory: Negative for cough, hemoptysis, shortness of breath and wheezing. Cardiovascular: Positive for palpitations. Negative for chest pain, orthopnea, claudication, leg swelling and PND. Gastrointestinal: Negative for abdominal pain, blood in stool, diarrhea, heartburn, nausea and vomiting. Genitourinary: Negative for dysuria, frequency and hematuria. Musculoskeletal: Negative for falls, joint pain and myalgias. Skin: Negative for rash. Neurological: Negative for weakness and headaches. Grossly normal neurologic exam for coordination and strength. Endo/Heme/Allergies: Does not bruise/bleed easily. - See HPI Objective: BP 122/68 Pulse 80 Ht 157.5 cm (62) Wt 60.8 kg (134 lb) SpO2 100% BMI 24.51 kg/m2 Physical Exam Constitutional: She is oriented to person, place, and time. She appears well- developed and well-nourished. HENT: Head: Normocephalic and atraumatic. Eyes: Conjunctivae and EOM are normal. Pupils are equal, round, and reactive to light. Neck: Normal range of motion. Neck supple. No JVD present. Cardiovascular: Normal rate, regular rhythm, normal heart sounds and intact distal pulses. Pulmonary/Chest: Effort normal and breath sounds normal. She has no wheezes. She has no rales. Abdominal: Soft. Bowel sounds are normal. There is no tenderness. Musculoskeletal: She exhibits no edema. Lymphadenopathy: She has no cervical adenopathy. Neurological: She is alert and oriented to person, place, and time. Skin: Skin is warm and dry. Psychiatric: She has a normal mood and affect. Her behavior is normal. Thought content normal. Nursing note and vitals reviewed. Twelve-lead ECG: Sinus rhythm with incomplete right bundle branch block, normal QT interval, no preexcitation. Assessment/Plan: In summary, Ms. Duffy is a pleasant 22-year-old woman with episodes of sinus tachycardia. There have been no episodes of SVT, atrial fibrillation or flutter recorded. Her exam is unremarkable. She is euvolemic on physical exam. She is not having symptoms suggestive of myocardial ischemia or heartfailure. I think that the patient's tachycardia is likely sinus tachycardia and being driven by other factors. I would not recommend medical therapy at this time. I would recommend that Mrs. Duffy exercise 20 minutes per day. She could start by exercising in the supine position. She should use compressionstockings. She should also make sure she hydrates herself well. Her history of vagal symptoms when she was younger could imply that she has mild autonomic issues. Please note, that Ms. Duffy was not orthostatic on physical exam. The heart rate and blood pressure were essentially the same whether she was in the supine, sitting or standing position. Plans: Encourage oral hydration of at least 2 L daily Use extra salt or food Compression stockings Regular exercise Follow-up as needed. documented in this encounter Plan of Treatment Upcoming Encounters Date Type Department Care Team (Late st Contact Info) Description 12/11/2024 9:25 EST Hospital Encounter [facility] OR [address] [place] [phone] Celeste Cooper MD [address] [place] [address], [facility], [address] [place] [phone] 12/11/2024 9:25 EST - 12/11/2024 11:40 EST Surgery [facility] OR [address] [place] [address] [phone] Celeste Cooper MD [address] [place] [address], [address] [place] [address] Laparoscopic left ovarian cystectomy [24793 (CPT??)] 12/31/2024 16:15 EST Post-op Visit [facility] OBGYN Services - [address] [phone] Jessika Upton MD [address] [place] [phone] 02/06/2025 13:10 EDT Appointment [facility] OBGYN Services [address] [phone] 03/05/2025 8:40 EDT Office Visit [facility] Rheumatology & Immunology - [address] [phone] Nikolay Elizabeth MD MPH [address] [place] [address], [address] [place] [address] Scheduled Procedures Name Priority Associated Diagnoses Date/Ti me LAPAROSCOPY, WITH EXCISION O R FULGURATION OF LESIONS OF OVARY, PELVIC VISCERA, OR PERITONEAL SURFACE Cyst of left ovary 12/11/2024 9:25 EST documented as of this encounter Procedures Procedure Name Priority Date/Time Associated Diagnosis Comments ECG REPORT - SCANNED 02/16/2018 8:28 EDT EKG 12-LEAD Routine 02/15/2018 14:58 EDT Tachycardia documented in this encounter Results * ECG REPORT - SCANNED (02/16/2018 8:28 EDT) 02/16/2018 8:28 EDT us Scan 2 Passenger Service Representative PROCEDURE/MINOR SURGICAL OR DERABLES Final Result * EKG 12-LEAD (02/15/2018 14:58 EDT) 02/15/2018 14:5 8 EDT Narrative [facility] EKG - 02/16/2018 8:24 EDT ? [facility] ? Test Date: ?2018-02-15 Pat Name: ? ULISES WESTCOM ? Department: ?? MERARY CARD ? Room: ? Gender: ? F ?Wild Animal Caretaker: ?? [id number] : ?1995 ? Requested By: MANUELITO Hinojosa Order Number: [id number] ? Reading MD: ?? BINDU MAZA MD ? Measurements Intervals ?Avenel ? Rate: ? 68 ? P: ?55 SC: ? 141 ?QRS: ?50 QRSD: ? 80 ? T: ?34 QT: ? 392 ? QTc: ?420 ? Interpretive Statements SINUS RHYTHM WITH SINUS ARRHYTHMIA No previous ECG available for comparison I reviewed the tracing and have either agreed or edited the findings in this report. Electronically Signed On 02-16-18 08:24:13 EDT by BINDU MAZA MD. Procedure Note Bindu Maza MD - 02/16/2018 [facility] Test Date: 2018-02-15 Pat Name: [employer] [facility] [employer] [facility] Department: Hyperpia Room: Gender: F Wild Animal Caretaker: [id number] : 1995 Requested By: MANUELITO Hinojosa Order Number: [id number] Reading MD: BINDU MAZA MD Measurements Intervals Avenel Rate: 68 P: 55 SC: 141 QRS: 50 QRSD: 80 T: 34 QT: 392 QTc: 420 Interpretive Statements SINUS RHYTHM WITH SINUS ARRHYTHMIA No previous ECG available for comparison I reviewed the tracing and have either agreed or edited the findings inthis report. Electronically Signed On 02-16-18 08:24:13 EDT by BINDU GARCIA. us Garrison Laura MD CARDIAC ECG ORDERABLE S Final Result [facility] EKG documented in this encounter Visit Diagnoses Diagnosis Tachycardia- Primary Tachycardia, unspecified Cyst of left ovary Other and unspecified ovarian cyst documented in this encounter Care Teams Suction Operator Relationship Specialty Start Date End Date Gill Traore MD PCP - General 11/02/17 05/26/19 documented as of this encounter
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
--- OUTSIDE RECORDS SUMMARY | 2024-12-08 15:33 | XMS_ITS | Encounter Summary ---
Author Organization [facility] Address [address] [place] [address] Care Team Providers Care Cotton Factor Name Role Phone Eugenie, Gill Mejia MD Primary Care Provider [phone] Zina Monroy DO Primary Care Provider [phone] Encounter Details Date Type Department Care Team (Late st Contact Info) Description 11/07/2018 Historical Results Only [facility] - [facility] - Main [address] [place] [phone] Maria Ines Crow MD [address], [address] [place] [address] Social History Tobacco Use Types [...] EST Hospital Encounter [facility] OR [address] [place] [address] [phone] Celeste Cooper MD [address] [place] [address] 4 [place] [phone] 12/11/2024 9:25 EST - 12/11/2024 11:40 EST Surgery [address] [phone] Celeste Cooper MD [address] [place] [address] 4 [place] [phone] Laparoscopic left ovarian cystectomy [00726 (CPT??)] 12/31/2024 16:15 EST Post-op Visit [facility] OBGYN Services [address] [phone] Jessika Upton MD [address] [place] [phone] 02/06/2025 13:10 EDT Appointment [facility] OBGYN Services [address] [phone] 03/05/2025 8:40 EDT Office Visit [facility] Rheumatology & Immunology [address] [phone] Nikolay Elizabeth MD MPH [address] [place] [address] 5 [place] [phone] Scheduled Procedures Name Priority Associated Diagnoses Date/Ti me LAPAROSCOPY, WITH EXCISION O R FULGURATION OF LESIONS OF OVARY, PELVIC VISCERA, OR PERITONEAL SURFACE Cyst of left ovary 12/11/2024 9:25 EST documented as of this encounter Procedures Procedure Name Priority Date/Time Associated Diagnosis Comments COMPLETE BLOOD COUNT WITH DIFFERENTIAL (AUTO) Routine 11/07/2018 14:52 EST URINE CHEMICAL (DIP) & SEDIMENT (MICRO) WITHOUT REFLEX TO CULTURE Routine 11/07/2018 14:52 EST TYPE AND SCREEN Routine 11/07/2018 14:52 EST documented in this encounter Results * (ABNORMAL) COMPLETE BLOOD COUNT WITH DIFFERENTIAL (AUTO) (11/07/2018 14:52 EST) ABSOLUTE NEUTROPHIL COUN - [facility] 7.96(H) 1.7 - 7.0 10e3/ul 11/07/2018 15:40 [facility] BASO # - [facility] 0.03 0.0 - 0.3 10e3/uL 11/07/2018 15:40 [facility] BASO % - [facility] 0 0 - 2 % 11/07/2018 15:40 [facility] EOS # - [facility] 0.09 0.05 - 0.5 10e3/uL 11/07/2018 15:40 [facility] EOS % - [facility] 1 0 - 5 % 11/07/2018 15:40 [facility] GRAN % - [facility] 67 40 - 80 % 11/07/2018 15:40 [facility] HEMATOCRIT - [facility] 36.6 34.0 - 47.0 % 11/07/2018 15:40 [facility] HEMOGLOBIN - [facility] 12.5 11.2 - 15.7 g/dl 11/07/2018 15:40 [facility] IG# - [facility] 0.08(H) 0 - 0.07 10e3/uL 11/07/2018 15:40 [facility] IG% - [facility] 0.7 0 - 0.9 % 11/07/2018 15:40 [facility] LYMPH # - [facility] 2.93(H) 0.9 - 2.9 10e3/uL 11/07/2018 15:40 [facility] LYMPH% - [facility] 25 20 - 40 % 11/07/2018 15:40 [facility] MEAN CORPUSCULAR HGB - [facility] 28.7 26 - 34 pg 11/07/2018 15:40 [facility] MEAN CORPUSCULAR HGB CONC - [facility] 34.2 31 - 36 g/dL 11/07/2018 15:40 [facility] MEAN CELL VOLUME - [facility] 83.9 77 - 100 fl 11/07/2018 15:40 [facility] MONO # - [facility] 0.69 0.3 - 0.9 10e3/uL 11/07/2018 15:40 [facility] MONO% - [facility] 6 0 - 12 % 11/07/2018 15:40 [facility] PLATELET COUNT 276 150 - 400 10e3/ul 11/07/2018 15:40 [facility] RED BLOOD COUNT - [facility] 4.36 3.8 - 5.2 10e6/ul 11/07/2018 15:40 [facility] RED CELL DISTRI WIDTH - [facility] 13.2 11.8 - 15.6 % 11/07/2018 15:40 [facility] WHITE BLOOD COUNT - [facility] 11.8(H) 3.5 - 10.5 10e3/ul 11/07/2018 15:40 [facility] 11/07/2018 14:5 2 EST 11/07/2018 14:52 EST Narrative [facility] - 11/07/2018 15:40 EST Does PT Have a Latex Allergy? NO us Maria Ines Crow MD HEMATOLOGY & PF4 ORDERABLES F inal Result [facility] * UA, CHEMICAL AND SEDIMENT ANALYSIS (DIPSTICK AND MICROSCOPIC) (11/07/2018 14:52 EST) URINE APPEARANCE - [facility] Clear CLEAR 11/07/2018 17:04 [facility] URINE BILIRUBIN - DIPSTICK - [facility] Negative NEGATIVE 11/07/2018 17:04 [facility] URINE BLOOD - [facility] Negative NEG 11/07/2018 17:04 [facility] URINE COLOR - [facility] Yellow YELLOW 11/07/2018 17:04 [facility] URINE GLUCOSE - DIPSTICK - [facility] Negative NEGATIVE 11/07/2018 17:04 [facility] URINE KETONE - [facility] Negative NEGATIVE 11/07/2018 17:04 [facility] URINE LEUK ESTERASE - [facility] Negative NEG 11/07/2018 17:04 [facility] URINE NITRITE - DIPSTICK - [facility] Negative NEG 11/07/2018 17:04 [facility] URINE PH - [facility] 6.5 4.0 - 8.0 8 17:04 [facility] URINE PROTEIN - DIPSTICK - [facility] Negative NEG 11/07/2018 17:04 [facility] URINE SPECIFIC GRAVITY - [facility] 1.020 1.001 - 1.035 11/07/2018 17:04 [facility] URINE UROBILINOGEN - DIPSTICK - [facility] 0.2 0.2 - 1.0 11/07/2018 17:04 [facility] 11/07/2018 14:5 2 EST 11/07/2018 14:52 EST Narrative [facility] - 11/07/2018 17:04 EST Does PT Have a Latex Allergy? NO us Maria Ines Crow MD URINALYSIS ORDERABLES Final R esult [facility] * TYPE AND SCREEN (11/07/2018 14:52 EST) [facility] BLOOD TYPE - [facility] O Positive [facility] Antibody Screen NEGATIVE [facility] Specimen Expires: 11/10/18 AT 2359 [facility] Comment: PATIENT'S RESPONSES INDICATE A HISTORY OF SURGERY, TRANSFUSION OR WITHIN THE LAST 3 MONTHS. FOR BLOOD PRODUCTS, THIS SPECIMEN WILL OUTDATE 72 HOURS FROM THE TIME IT WAS COLLECTED. ??ANY BLOOD PRODUCTS ORDERED AFTER 72 HOURS MUST BE WORKED UP ON A NEW SPECIMEN. 11/07/2018 14:5 2 EST 11/07/2018 14:52 EST Narrative [facility] - 11/07/2018 14:46 EST Does PT Have a Latex Allergy? NO IS THIS A PREOPERATIVE PATIENT? Y IF YES, DATE OF SURGERY: 11/08/18 Maria Ines Crow MD BLOOD BANK TESTS Final Result [facility] documented in this encounter Visit Diagnoses Not on filedocumented in this encounter Care Teams Cotton Factor Relationship Specialty Start Date End Date Gill Traore MD PCP - General 11/02/17 05/26/19 Zina Monroy DO PCP - General 05/27/19 08/05/20 documented as of this encounter
--- OUTSIDE RECORDS SUMMARY | 2024-12-08 15:33 | XMS_ITS | Encounter Summary ---
Author Organization [facility] Address [address] [place] [address] Care Team Providers Care Infusion Rn Name Role Phone Soniya Tomlinson Primary Care Provider [phone] Unknown, Provider Primary Care Provider Gill Saezn MD Primary Care Provider [phone] Zina Monroy DO Primary Care Provider [phone] Encounter Details Date Type Department Care Team (Late st Contact Info) Description 08/09/2017 Historical Results Only [facility] - [facility] - Main [place] [address] [place], [place] 177682 Gill Traore MD [address] [place] [address] [phone] Social History Tobacco Use Types Packs/Day Years [...] Hospital Encounter [facility] OR [address] [place] [address] [phone] Celeste Cooper MD [address] [place] [address], [facility] 4 [place] [phone] 12/11/2024 9:25 EST - 12/11/2024 11:40 EST Surgery [facility] OR [address] [place] [address] [phone] Celeste Cooper MD [address] [place] [address], [facility] 4 [place] [phone] Laparoscopic left ovarian cystectomy [66176 (CPT??)] 12/31/2024 16:15 EST Post-op Visit [facility] OBGYN Services - [address] [address] Jessika Upton MD [address] [place] [phone] 02/06/2025 13:10 EDT Appointment [facility] OBGYN Services [address] [phone] 03/05/2025 8:40 EDT Office Visit [facility] Rheumatology & Immunology - [address] 438301 Nikolay Elizabeth MD MPH [address] [place] [address], [facility] 5 [place] [phone] Scheduled Procedures Name Priority Associated Diagnoses Date/Ti me LAPAROSCOPY, WITH EXCISION O R FULGURATION OF LESIONS OF OVARY, PELVIC VISCERA, OR PERITONEAL SURFACE Cyst of left ovary 12/11/2024 9:25 EST documented as of this encounter Procedures Procedure Name Priority Date/Time Associated Diagnosis Comments HPV DNA DETECTION WITH GENOTYPING, PCR Routine 08/09/2017 14:01 EDT FREE T3 POC - [facility] Routine 08/09/2017 11 :08 EDT COMPREHENSIVE METABOLIC POC - [facility] Routine 08/09/2017 11:08 EDT FREE T4 POC - [facility] Routine 08/09/2017 11 :08 EDT THYROID STIM HORMONE POC - [facility] Routine 08/09/2017 11:08 EDT CBC W/PLT & DIFF,POINT OF CARE - [facility] Routine 08/09/2017 11:08 EDT PAP TEST Routine 08/09/2017 documented in this encounter Results * HUMAN PAPILLOMAVIRUS (HPV) DETECTION-HIGH RISK TYPES (08/09/2017 14:01 EDT) HPV other High Risk types, PCR NEG 08/25/2017 15:16 EDT [facility] Comment: Negative for HPV types 16, 18, 31, 33, 35, 39, 45, 51, 52, 56, 58, 59, 66, 68. Method: Cervista HPV HR (High Risk) DNA test. 08/09/2017 14:0 1 EDT 08/22/2017 14:01 EDT us Gill Traore MD MICROBIOLOGY - GENERAL ORDER JAD Final Result Performing Organization Address City/[facility]/ZIP Co de Phone Number [facility] * THYROID STIM HORMONE POC - [facility] (08/09/2017 11:08 EDT) THYROID STIM HORMONE - [facility] 1.55 0.34 - 5.60 UIU/ML 08/10/2017 11:09 EDT [facility] 08/09/2017 11:0 8 EDT 08/09/2017 11:08 EDT us Gill Traore MD CHEMISTRY & BLOOD GAS ORDERA BLES Final Result Performing Organization Address [facility]/ZIP Co de Phone Number [facility] * FREE T4 POC - [facility] (08/09/2017 11:08 EDT) FREE T4 - [facility] 0.86 0.58 - 1.64 NG/DL 08/10/2017 11:09 EDT [facility] 08/09/2017 11:0 8 EDT 08/09/2017 11:08 EDT us Gill Traore MD CHEMISTRY & BLOOD GAS ORDERA BLES Final Result [facility] * FREE T3 POC - [facility] (08/09/2017 11:08 EDT) Pathologist [facility] T3,FREE [facility] 3.24 2.40 - 4.00 PG/ML 08/10/2017 11:09 EDT [facility] 08/09/2017 11:0 8 EDT 08/09/2017 11:08 EDT us Gill Traore MD CHEMISTRY & BLOOD GAS ORDERA BLES Final Result [facility] * COMPREHENSIVE METABOLIC POC - [facility] (08/09/2017 11:08 EDT) [facility] Albumin % 4.5 3.50 - 5.00 G/DL 08/10/2017 11:09 EDT [facility] ALKALINE PHOSPHATASE - [facility] 58 38.00 - 126.00 U/L 08/10/2017 11:09 T [facility] BILIRUBIN TOTAL 0.6 0.20 - 1.30 MG/DL 08/10/2017 11:09 EDT [facility] BUN - [facility] 13 7.00 - 20.00 MG/DL 08/10/2017 11:09 EDT [facility] CALCIUM - [facility] 9.6 8.50 - 10.50 MG/DL 08/10/2017 11:09 EDT [facility] Chloride 106 98.00 - 107.00 MMOL/L 08/10/2017 11:09 [facility] CO2 Total 25 22.00 - 30.00 MMOL/L 08/10/2017 11:09 [facility] CREATININE 0.8 0.70 - 1.50 MG/DL 08/10/2017 11:09 [facility] Anion Gap 12 7 - 17 08/10/2017 11:09 [facility] GLUCOSE - [facility] 78 70.00 - 100.00 MG/DL 08/10/2017 11:09 [facility] Potassium 3.8 3.50 - 5.10 MMOL/L 08/10/2017 11:09 [facility] Sodium 143 137.00 - 145.00 MMOL/L 08/10/2017 11:09 [facility] TOTAL PROTEIN - [facility] 7.4 6.30 - 8.20 G/DL 08/10/2017 11:09 [facility] SGOT/AST - [facility] 18 15.00 - 46.00 U/L 08/10/2017 11:09 [facility] SGPT/ALT - [facility] 31 13.00 - 69.00 U/L 08/10/2017 11:09 [facility] 08/09/2017 11:0 8 EDT 08/09/2017 11:08 EDT us Gill Traore MD CHEMISTRY & BLOOD GAS ORDERA BLES Final Result [facility] * (ABNORMAL) CBC W/PLT & DIFF,POINT OF CARE - [facility] (08/09/2017 11:08 EDT) Gran # 3.8 1.4 - 6.5 X10E3/UL 08/10/2017 11:09 [facility] GRAN % - [facility] 54.4 42.2 - 75.2 % 08/10/2017 11:09 [facility] HEMATOCRIT - [facility] 38.9 35.0 - 60.0 % 08/10/2017 11:09 [facility] HEMOGLOBIN - [facility] 13.0 11.0 - 18.0 G/DL 08/10/2017 11:09 [facility] LYMPH # - [facility] 2.8 1.2 - 3.4 X10E3/UL 08/10/2017 11:09 [facility] LYMPH% - [facility] 40.5 20.5 - 51.1 % 08/10/2017 11:09 [facility] MEAN CORPUSCULAR HGB - [facility] 28.4 27.0 - 31.0 PG 08/10/2017 11:09 [facility] MEAN CORPUSCULAR HGB CONC - [facility] 33.4 33.0 - 37.0 G/DL 08/10/2017 11:09 [facility] MEAN CELL VOLUME - [facility] 85.0 80.0 - 99.9 FL 08/10/2017 11:09 [facility] MONO # - [facility] 0.4 0.1 - 0.6 X10E3/UL 08/10/2017 11:09 [facility] MONO% - [facility] 5.1 1.7 - 9.3 % 08/10/2017 11:09 [facility] MEAN PLATELET VOLUME - [facility] 7.4(L) 7.8 - 11.0 FL 08/10/2017 11:09 [facility] PLATELET COUNT 280 150 - 450 X10E3/UL 08/10/2017 11:09 [facility] RED BLOOD COUNT - [facility] 4.58 4.00 - 6.00 X10E6/UL 08/10/2017 11:09 [facility] RED CELL DISTRI WIDTH - [facility] 13.1 11.6 - 13.7 % 08/10/2017 11:09 [facility] WHITE BLOOD COUNT - [facility] 6.9 4.5 - 10.5 X10E3/UL 08/10/2017 11:09 [facility] 08/09/2017 11:0 8 EDT 08/09/2017 11:08 EDT us Gill Traore MD CHEMISTRY & BLOOD GAS ORDER BLES Final Result [facility] * PAP TEST (08/09/2017) 08/09/2017 08/10/2017 9:0 7 EDT Narrative [facility] - 09/04/2017 13:59 EDT ----- ------- Name: [facility] S ? : 96 ?Age/Sex: 24/F ?Unit#: [id number] ? Loc: LAB.THC ? Status: REG REF ?? Reg Date: 08/09/17 ? Pt.Phone Number: ? ----- ------- This is an Amended or Addendum report. Any previous versions are stored internally and are available if necessary by calling the [facility] Pathology Dept at [phone] Specimen: [id number] ?STATUS: SOUT ?Spec Date:08/09/17 ? Physician Copies: ?EugenieGill MD Tissues: ? Cervical/Endo Pap ? CPT: 12182 ?? Units: ??1 ----- ------- ? CYTOLOGY DIAGNOSIS SPECIMEN ADEQUACY: ?Satisfactory for evaluation. Transformation zone component present. GENERAL CATEGORIZATION: ?Epithelial Cell Abnormality. DESCRIPTIVE DIAGNOSIS: ??Squamous cell Abnormality - ??Atypical squamous cells - undetermined significance. RECOMMENDATIONS/COMMENTS: ??Recommend following the Updated consensus guidelines algorithms for managing abnormal cervical cancer screening tests and cancer precursors Management algorithms have been distributed and are also available online at www.ASCCP.org/consensus.shtml. ----- ------- ?HPV DNA RESULTS ? LABORATORY ?? Date ? Time Test ?Result ?? Flag ?Normal Range ?? 08/09/17 1401 HPV DNA RESULT ??NEG ? Negative for HPV types 16, 18, 31, 33, 35, 39, 45, 51, 52, ? 56, 58, 59, 66, 68. ? Method: Cervista HPV HR (High Risk) DNA test. ----- ------- ORDER QUERIES: LMP: ? - ? Post ?PREVIOUS ATYPICAL: ?? BCP/HRT? ?? Rad Rx? ?? IUD?PAP PLUS HPV?REFLEX TO HR-HPV IF ASCUS Y REFLEX TO HPV 16/18 IF HPV POS/PAP NEG ?? HPV REGARDLESS?RFLX HPV IF LSIL ?? Signed ____(signature on file)____ Sharon Hilario M.D. 09/04/17 ?? By the signature above, the attending physician certifies that he/she has personally conducted a gross and/or microscopic examination of the described specimens and rendered or confirmed the above diagnosis. Test Performed by [facility], [address] [place] [address] Section Leader And Machine Setter: Dulce Rendon MD PHD ----- ------- us Gill Traore MD PATHOLOGY ORDERABLES Final R esult [facility] documented in this encounter Visit Diagnoses Not on filedocumented in this encounter Care Teams Infusion Rn Relationship Specialty Start Date End Date Soniya Tomlinson PA [address] [place] [place] [phone] PCP - General 03/12/14 10/31/17 Unknown, Provider, [address] [place] [phone] PCP - General 11/01/17 7 Gill Traore MD [address] [place] [phone] PCP - General 11/02/17 05/26/19 Zina Monroy DO [address] [place] [phone] PCP - General 05/27/19 08/05/20 documented as of this encounter
--- OUTSIDE RECORDS SUMMARY | 2024-12-08 15:33 | XMS_ITS | Encounter Summary ---
Author Organization [facility] Address [address] [place] [address] Care Team Providers Care Mounter Clarinets Name Role Phone Eugenie, Gill Mejia MD Primary Care Provider [phone] Zina Monroy DO Primary Care Provider [phone] Encounter Details Date Type Department Care Team (Late st Contact Info) Description 10/03/2018 Historical Results Only [facility] - [facility] Lab - Main [place] [address] [place] [address] Lopez Hancock MD [address] [place] [phone] Social History Tobacco Use Types Packs/Day [...] 12/11/2024 9:25 EST Hospital Encounter [facility] OR [address] [place] [address] [phone] Celeste Cooper MD [address] [place] [address] 4 [place] [phone] 12/11/2024 9:25 EST - 12/11/2024 11:40 EST Surgery [facility] OR [address] [place] [address] [phone] Celeste Cooper MD [address] [place] [phone] Laparoscopic left ovarian cystectomy [79574 (CPT??)] 12/31/2024 16:15 EST Post-op Visit [facility] OBGYN Services - [address] [phone] Jessika Upton MD [address] [place] [phone] 02/06/2025 13:10 EDT Appointment [facility] OBGYN Services - [address] [phone] 03/05/2025 8:40 EDT Office Visit [facility] Rheumatology & Immunology - [address] [phone] Nikolay Elizabeth MD MPH [address] [place] [address] [address] [place] [phone] Scheduled Procedures Name Priority Associated Diagnoses Date/Ti me LAPAROSCOPY, WITH EXCISION O R FULGURATION OF LESIONS OF OVARY, PELVIC VISCERA, OR PERITONEAL SURFACE Cyst of left ovary 12/11/2024 9:25 EST documented as of this encounter Procedures Procedure Name Priority Date/Time Associated Diagnosis Comments SPEC W/O ORDERS - [facility] Routine 10/03/2018 14:03 EST documented in this encounter Results * SPEC W/O ORDERS [facility] (10/03/2018 14:03 EST) SPEC W/O ORDERS [facility] SEE NOTE 10/03/2018 14:17 EST [facility] Comment: ?Emergency Room Specimen(s) without Orders These specimens will be discarded in 4 hours: GOLD, GREEN, PURPLE 10/03/2018 14:0 3 EST 10/03/2018 14:16 EST us Lopez Hancock MD CHEMISTRY & BLOOD GAS ORDERA BLES Final Result [facility] documented in this encounter Visit Diagnoses Not on filedocumented in this encounter Care Teams Mounter Clarinets Relationship Specialty Start Date End Date Gill Traore MD PCP - General 11/02/17 05/26/19 Zina Monroy DO PCP - General 05/27/19 08/05/20 documented as of this encounter
--- OUTSIDE RECORDS SUMMARY | 2024-12-08 15:33 | XMS_ITS | Encounter Summary ---
Author Organization [facility] Address [address] [place] [address] Care Team Providers Care Finnish Rubber Name Role Phone Eugenie, Gill Mejia MD Primary Care Provider [phone] Zina Monroy DO Primary Care Provider [phone] Encounter Details Date Type Department Care Team (Late st Contact Info) Description 11/06/[address] [facility] Radiology Results [address] [place], [place] 345[address] Maria Ines Crow MD [address] [facility], [address] [place] [address] Social History Tobacco Use Types [...] Info) Description 12/11/2024 9:25 EST Hospital Encounter [facility] OR [address] [place] [address] [phone] Celeste Cooper MD [address] [place] [address] 4 [place] [phone] 12/11/2024 9:25 EST - 12/11/2024 11:40 EST Surgery [facility] OR [address] [place] [address] [phone] Celeste Cooper MD [address] [place] [address] 4 [place] [phone] Laparoscopic left ovarian cystectomy [16938 (CPT??)] 12/31/2024 16:15 EST Post-op Visit [facility] OBGYN Services [address] [phone] Jessika Upton MD [address] [place] [phone] 02/06/2025 13:10 EDT Appointment [facility]YN Services [address] [phone] 03/05/2025 8:40 EDT Office Visit [facility] Rheumatology & Immunology [address] [phone] Nikolay Elizabeth MD MPH [address] [place] [address] 5 [place] [phone] Scheduled Procedures Name Priority Associated Diagnoses Date/Ti me LAPAROSCOPY, WITH EXCISION O R FULGURATION OF LESIONS OF OVARY, PELVIC VISCERA, OR PERITONEAL SURFACE Cyst of left ovary 12/11/2024 9:25 EST documented as of this encounter Procedures Procedure Name Priority Date/Time Associated Diagnosis Comments US OB FIRST TRIMESTER (LESS THAN 14 WEEKS) TRANSABDOMINAL 11/06/2018 11:08 EST documented in this encounter Results * US OB FIRST TRIMESTER (LESS THAN 14 WEEKS) TRANSABDOMINAL (11/06/2018 11:08 EST) Anatomical Region Laterality Modality Pelvis Other 11/06/2018 11:0 8 EST Narrative 11/07/2018 10:50 EST ? EXAM: ULTRASOUND/OB-LEVEL 1 (TRANSABDOMIN EX. D/ (1108) ? CLINICAL INFORMATION: ? Z33.1 , INCIDENTAL STATE ? CHECK FHR (UNABLE TO FIND W/DOPPLER TONES IN OFFICE) ? RHODA 05/28/2019 ? See attached report. ??Report also available in PACS. ? JSP:[email or web address] ?Reported By: Garrison Ragsdale MD ? CC: ? Transcribed Date/Time: 11/07/2018 (1050) ? Hatchery Man: DC ? Printed Date/Time: 05/19/2019 (8131) ? PAGE 1 ? Signed Report ? Procedure Note Garrison Ragsdale MD - 10/03/2019 EXAM: ULTRASOUND/OB-LEVEL 1 (TRANSABDOMIN EX. D/ (0023) CLINICAL INFORMATION: Z33.1 , INCIDENTAL STATE CHECK FHR (UNABLE TO FIND W/DOPPLER TONES IN OFFICE) RHODA 05/28/2019 See attached report. Report also available in PACS. JSP:[email or web address] Reported By: Garrison Ragsdale MD CC: Transcribed Date/Time: 11/07/2018 (4751) Hatchery Man: DC Printed Date/Time: 05/19/2019 (1878) PAGE 1 Signed Report us Maria Ines Crow MD IMG US OB ORDERABLES Final Re sult documented in this encounter Visit Diagnoses Not on filedocumented in this encounter Care Teams Finnish Rubber Relationship Specialty Start Date End Date EugenieGill MD PCP - General 11/02/17 05/26/19 Zina Monroy DO PCP - General 05/27/19 08/05/20 documented as of this encounter
--- OUTSIDE RECORDS SUMMARY | 2024-12-08 15:33 | XMS_ITS | Encounter Summary ---
Author Organization [facility] Address [address] [place] [address] Care Team Providers Care Retort Operator Name Role Phone Soniya Tomlinson Primary Care Provider [phone] Unknown, Provider Primary Care Provider Robynva Gill Restrepo MD Primary Care Provider [phone] Zina Monroy DO Primary Care Provider [phone] Joseph Eduardo PA-C Primary Care Provider [phone] Kalyani Landeros DNP Primary Care Provider [phone] Liz Aguilar DO Primary Care Provider Kalyani Douglas MD Primary Care Provider [phone] Liz Aguilar DO Unavailable [phone] Encounter Details Date Type Department Care Team (Late st Contact Info) Description 10/09/2017 Historical Results Only [facility]iology Clinic [address] [place], [place] 374992 Unknown, Provider, Social History Tobacco Use Types Packs/Day Years [...] Info) Description 12/11/2024 9:25 EST Hospital Encounter [facility] OR [address] [place] [address] [phone] Celeste Cooper MD [address] [place] [address] 4 [place] [phone] 12/11/2024 9:25 EST - 12/11/2024 11:40 EST Surgery [facility] OR [address] [place] [address] [phone] Celeste Cooper MD [address] [place] [address] 4 [place] [phone] Laparoscopic left ovarian cystectomy [12159 (CPT??)] 12/31/2024 16:15 EST Post-op Visit [facility] OBGYN Services - [address] [phone] Jessika Upton MD [address] [place] [address] [phone] 02/06/2025 13:10 EDT Appointment [facility] OBGYN Services [address] [phone] 03/05/2025 8:40 EDT Office Visit [facility] Rheumatology & Immunology - [address] [phone] Nikolay Elizabeth MD MPH [address] [place] [address] 5 [place] [phone] Scheduled Procedures Name Priority Associated Diagnoses Date/Ti me LAPAROSCOPY, WITH EXCISION O R FULGURATION OF LESIONS OF OVARY, PELVIC VISCERA, OR PERITONEAL SURFACE Cyst of left ovary 12/11/2024 9:25 EST documented as of this encounter Procedures Procedure Name Priority Date/Time Associated Diagnosis Comments HISTORICAL HOLTER/TANK COOPER 10/09/2017 9:06 EST documented in this encounter Results * HISTORICAL HOLTER/TANK COOPER (10/09/2017 9:06 EST) Anatomical Region Laterality Modality Other 10/09/2017 9:06 EST Narrative 10/09/2017 9:06 EST ? [facility] ? HOLTER SUMMARY REPORT NAME: ULISES COATES ?TELEPHONE: [phone] ? PATIENT LOCATION: ? DATE OF : ??[birth year] ?SEX: F ? REASON FOR VISIT: PALPITATIONS ? [facility] ? Test Date: ?2017-10-09 09:06:00 Pat Name: ? ULISES COATES ? Department: ?Room: ? Gender: ? F ?Software Licensing Specialist: ?? TITUS LARSON : ?1995 ? Requested By: Order Number: ?Reading MD: ?? Marlys Pierson MD ? Interpretive Statements 48 hour holter monitor Indication: palpitations Baseline: sinus tachycardia. Average HR 94/min. Min HR 56/min. Max HR 169/min. No PVC's. No NSVT. Rare PAC's. Isolated. No significant pauses or bradyarrhythmias. All symptoms in diary of chest pain or lightheadedness correspond to sinus rhythm or sinus tachycardia. Overall sinus rhythm with symptoms corresponding to sinus rhythm or sinus tachycardia. Electronically Signed On 10-11-2017 15:52:40 EST by Marlys Pierson MD Procedure Note Marlys Pierson MD - 09/15/2019 [facility] HOLTER SUMMARY REPORT NAME: ULISES COATES TELEPHONE:[phone] PATIENT LOCATION: MEDICAL RECORD#: [id number] DATE OF : [birth year] SEX: F REASON FOR VISIT: [place]PITATIONS [facility] [place] Test Date: 2017-10-09 09:06:00 Pat Name: ULISES COATES Department: Room: Gender: F Software Licensing Specialist: TITUS LARSON DOB: 1995 Requested By: Order Number: Reading MD: Marlys Pierson MD Interpretive Statements 48 hour holter monitor Indication: palpitations Baseline: sinus tachycardia. Average HR 94/min. Min HR 56/min. Max HR 169/min. No PVC's. No NSVT. Rare PAC's. Isolated. No significant pauses or bradyarrhythmias. All symptoms in diary of chest pain or lightheadedness correspond to sinus rhythm or sinus tachycardia. Overall sinus rhythm with symptoms corresponding to sinus rhythm orsinus tachycardia. Electronically Signed On 10-11-2017 15:52:40 EST by Marlys Pierson MD us Provider Unknown MD CARDIAC SERVICES ORDERABLES Final Result documented in this encounter Visit Diagnoses Not on filedocumented in this encounter Additional Health Concerns Infection Onset Date Last Indicated Resolved Time R/O COVID-19 12/23/2022 12/23/2022 12/23/2022 1:42 EST documented as of this encounter Care Teams Retort Operator Relationship Specialty Start Date End Date Soniya Tomlinson PA [address] [place] [phone] PCP - General 03/12/14 10/31/17 Unknown, Provider, [address] [place] [phone] PCP - General 11/01/17 7 EugenieGill MD [address] [place] [phone] PCP - General 11/02/17 05/26/19 Zina Monroy DO [address] [place] [phone] PCP - General 05/27/19 08/05/20 Joseph Eduardo PA-C [address] [place] [phone] PCP - General Family Medicine - Primary Care 08/06/20 11/04/20 Kalyani Landeros DNP [address] [place] [address] PCP - General Family Medicine - Primary Care 11/05/20 11/26/22 Liz Aguilar DO [address] [place] [address] [place] [address] PCP - General Family Medicine - Primary Care 11/27/22 03/26/24 Kalyani Douglas MD [address] [place] [phone] PCP - General Family Medicine - Primary Care 03/27/24 Liz Aguilar DO [address] [place] [address] [address] [place] [address] Family Medicine - Primary Care 03/27/24 documented as of this encounter
--- OUTSIDE RECORDS SUMMARY | 2024-12-08 15:33 | XMS_ITS | Encounter Summary ---
Author Organization [facility] Address [address] [place] [address] Care Team Providers Care Senior Financial Reporting Analyst Name Role Phone Soniya Tomlinson Primary Care Provider [phone] Unknown, Provider Primary Care Provider Gill Saenz MD Primary Care Provider [phone] Zina Monroy DO Primary Care Provider [phone] Encounter Details Date Type Department Care Team (Late st Contact Info) Description 10/10/2016 Historical Results Only [facility] - Main [place] [address] [place], [place] 521482 Soniya Tomlinson PA [address] [place] [phone] Social History Tobacco Use Types Packs/Day [...] [facility] OR [address] [place] [address] [phone] Celeste Cooper MD [address] [place] [address], [facility] 4 [place] [phone] 12/11/2024 9:25 EST - 12/11/2024 11:40 EST Surgery [facility] OR [address] [place] [address] [phone] Celeste Cooper MD [address] [place] [address] 4 [place] [phone] Laparoscopic left ovarian cystectomy [43065 (CPT??)] 12/31/2024 16:15 EST Post-op Visit [facility] OBGYN Services [address] [address] Jessika Upton MD [address] [place] [address] [phone] 02/06/2025 13:10 EDT Appointment [facility] OBGYN Services [address] [phone] 03/05/2025 8:40 EDT Office Visit [facility] Rheumatology & Immunology - [address] [phone] Nikolay Elizabeth MD MPH [address] [place] [address], [facility] 5 [place] [phone] Scheduled Procedures Name Priority Associated Diagnoses Date/Ti me LAPAROSCOPY, WITH EXCISION O R FULGURATION OF LESIONS OF OVARY, PELVIC VISCERA, OR PERITONEAL SURFACE Cyst of left ovary 12/11/2024 9:25 EST documented as of this encounter Procedures Procedure Name Priority Date/Time Associated Diagnosis Comments THYROID STIM HORMONE POC - [facility] Routine 10/10/2016 13:20 EST documented in this encounter Results * THYROID STIM HORMONE POC - [facility] (10/10/2016 13:20 EST) THYROID STIM HORMONE - [facility] 1.24 0.34 - 5.60 uiu/ml 10/11/2016 13:25 EST [facility] 10/10/2016 13:2 0 EST 10/10/2016 13:20 EST Soniya CLIFFROD CHEMISTRY & BLOOD GAS ORDERABLES Final Result [facility] documented in this encounter Visit Diagnoses Not on filedocumented in this encounter Care Teams Senior Financial Reporting Analyst Relationship Specialty Start Date End Date Soniya Tomlinson PA [address] [place] [phone] PCP - General 03/12/14 10/31/17 Unknown, Provider, [address] [place] [phone] PCP - General 11/01/17 7 EugenieGill MD [address] [place] [phone] PCP - General 11/02/17 05/26/19 Zina Monroy DO [address] [place] [phone] PCP - General 05/27/19 08/05/20 documented as of this encounter
--- OUTSIDE RECORDS SUMMARY | 2024-12-08 15:33 | XMS_ITS | Encounter Summary ---
Author Organization [facility] Address [address] [place] [address] Care Team Providers Care Java Consultant Name Role Phone Eugenie, Gill Mejia MD Primary Care Provider [phone] Zina Monroy DO Primary Care Provider [phone] Encounter Details Date Type Department Care Team (Late st Contact Info) Description 02/26/2018 Historical Results Only [facility] Lab - Main [place] [address] [place] [address] Maria Ines Crow MD [address] [facility], [address] [place] [address] Social History Tobacco Use Types [...] Info) Description 12/11/2024 9:25 EST Hospital Encounter [facility] OR [address] [place] [address] [phone] Celeste Cooper MD [address] [place] [address] 4 [place] [phone] 12/11/2024 9:25 EST - 12/11/2024 11:40 EST Surgery [address] [phone] Celeste Cooper MD [address] [place] [address] 4 [place] [phone] Laparoscopic left ovarian cystectomy [85960 (CPT??)] 12/31/2024 16:15 EST Post-op Visit [facility] OBGYN Services [address] [phone] Jessika Upton MD [address] [place] [phone] 02/06/2025 13:10 EDT Appointment [facility] OBGYN Services [address] [phone] 03/05/2025 8:40 EDT Office Visit [facility] Rheumatology & Immunology [address] [phone] Nikolay Elizabeth MD MPH [address] [place] [address] 5 [place] [phone] Scheduled Procedures Name Priority Associated Diagnoses Date/Ti me LAPAROSCOPY, WITH EXCISION O R FULGURATION OF LESIONS OF OVARY, PELVIC VISCERA, OR PERITONEAL SURFACE Cyst of left ovary 12/11/2024 9:25 EST documented as of this encounter Procedures Procedure Name Priority Date/Time Associated Diagnosis Comments BETA-HCG QUANT(WITH DILUT) - [place] Routine 02/26/2018 11:07 EDT documented in this encounter Results * (ABNORMAL) BETA-HCG QUANT(WITH DILUT) - [place] (02/26/2018 11:07 EDT) BETA-HCG QUANTITATIVE 62(H) <5 mIU/mL 02/26/2018 11:52 EDT [facility] Comment: Negative: ?< 5 Indeterminate: 5-25 (repeated in 48 hrs) Positive: ?> 25 02/26/2018 11:0 7 EDT 02/26/2018 11:08 EDT Narrative [facility] - 02/26/2018 11:52 EDT Does PT Have a Latex Allergy? NO Enter/Edit CPT and ICD codes? N us Maria Ines Crow MD CHEMISTRY & BLOOD GAS ORDERAB LES Final Result [facility] documented in this encounter Visit Diagnoses Not on filedocumented in this encounter Care Teams Java Consultant Relationship Specialty Start Date End Date EugenieGill MD PCP - General 11/02/17 05/26/19 Zina Monroy DO PCP - General 05/27/19 08/05/20 documented as of this encounter
--- OUTSIDE RECORDS SUMMARY | 2024-12-08 15:33 | XMS_ITS | Encounter Summary ---
Author Organization [facility] Address [address] [place] [address] Care Team Providers Care Scarifier Operator Name Role Phone Eugenie, Gill Mejia MD Primary Care Provider [phone] Zina Monroy DO Primary Care Provider [phone] Encounter Details Date Type Department Care Team (Late st Contact Info) Description 03/06/2018 Historical Results Only [facility] Radiology Results [address] [place], [place] 791102 Eloise Luna MD 130 [facility], [address] [place] [address] Social History Tobacco Use Types [...] 12/11/2024 9:25 EST Hospital Encounter [facility] OR [address] [place] [address] [phone] Celeste Cooper MD [address] [place] [address] 4 [place] [phone] 12/11/2024 9:25 EST - 12/11/2024 11:40 EST Surgery [facility] OR [address] [place] [address] [phone] Celeste Cooper MD [address] [place] [address] 4 [place] [phone] Laparoscopic left ovarian cystectomy [56218 (CPT??)] 12/31/2024 16:15 EST Post-op Visit [facility] OBGYN Services [address] [phone] Jessika Upton MD [address] [place] [phone] 02/06/2025 13:10 EDT Appointment [facility] OBGYN Services [address] [phone] 03/05/2025 8:40 EDT Office Visit [facility] Rheumatology & Immunology [address] [phone] Nikolay Elizabeth MD MPH [address] [place] [address] 5 [place] [phone] Scheduled Procedures Name Priority Associated Diagnoses Date/Ti me LAPAROSCOPY, WITH EXCISION O R FULGURATION OF LESIONS OF OVARY, PELVIC VISCERA, OR PERITONEAL SURFACE Cyst of left ovary 12/11/2024 9:25 EST documented as of this encounter Procedures Procedure Name Priority Date/Time Associated Diagnosis Comments US OB FIRST TRIMESTER (LESS THAN 14 WEEKS) TRANSVAGINAL 03/06/2018 15:26 EDT BETA-HCG QUANT(WITH DILUT) - [facility] Routine 03/06/2018 12:40 EDT TYPE AND SCREEN Routine 03/06/2018 12:40 EDT documented in this encounter Results * US OB FIRST TRIMESTER (LESS THAN 14 WEEKS) TRANSVAGINAL (03/06/2018 15:26 EDT) Anatomical Region Laterality Modality Pelvis Other 03/06/2018 15:2 6 EDT Narrative 03/07/2018 9:26 EDT ? EXAM: ULTRASOUND/TRANSVAGINAL - OB (LEVEL EX. D/ (1526) ? CLINICAL INFORMATION: ? O26.891, OTHER SPECIFIED RELATED CONDITIONS, FIRST TRIM ? R10.2, PELVIC AND PERINEAL PAIN ? See attached report. ??Report also available in PACS. ? BBL:[email or web address] ?Reported By: Lopez Escalona MD ? CC: ? Transcribed Date/Time: 03/07/2018 (0926) ? Tour Driver: DC ? Printed Date/Time: 05/16/2019 (1305) ? PAGE 1 ? Signed Report ? Procedure Note Lopez Escalona MD - 10/02/2019 EXAM: ULTRASOUND/TRANSVAGINAL - OB (LEVEL EX. D/ (1526) CLINICAL INFORMATION: O26.891, OTHER SPECIFIED RELATED CONDITIONS, FIRST TRIM R10.2, PELVIC AND PERINEAL PAIN See attached report. Report also available in PACS. BBL:[email or web address] Reported By: Lopez Escalona MD CC: Transcribed Date/Time: 03/07/2018 (0926) Tour Driver: DC Printed Date/Time: 05/16/2019 (8160) PAGE 1 Signed Report Eloise Luna MD IMG US OB ORDERABLES Final Re sult * (ABNORMAL) BETA-HCG QUANT(WITH DILUT) - [facility] (03/06/2018 12:40 EDT) Pathologist [facility] BETA-HCG QUANTITATIVE 3,180(H) <5 mIU/mL 03/06/2018 13:28 EDT [facility] Comment: RESULTS CALLED TO KENNEDY HORTON AT OFFICE Negative: ?< 5 Indeterminate: 5-25 (repeated in 48 hrs) Positive: ?> 25 03/06/2018 12:4 0 EDT 03/06/2018 12:40 EDT Maria Ines Crow MD CHEMISTRY & BLOOD GAS ORDERAB LES Final Result [facility] * TYPE AND SCREEN (03/06/2018 12:40 EDT) [facility] BLOOD TYPE - [facility] O Positive [facility] Antibody Screen NEGATIVE [facility] Specimen Expires: 03/09/18 AT 2359 [facility] Comment: PATIENT'S RESPONSES INDICATE A HISTORY OF SURGERY, TRANSFUSION OR WITHIN THE LAST 3 MONTHS. FOR BLOOD PRODUCTS, THIS SPECIMEN WILL OUTDATE 72 HOURS FROM THE TIME IT WAS COLLECTED. ??ANY BLOOD PRODUCTS ORDERED AFTER 72 HOURS MUST BE WORKED UP ON A NEW SPECIMEN. 03/06/2018 12:4 0 EDT 03/06/2018 12:40 EDT Narrative [facility] - 03/06/2018 12:31 EDT Does PT Have a Latex Allergy? NO IS THIS A PREOPERATIVE PATIENT? N us Eloise Luna MD BLOOD BANK TESTS Final Result [facility] documented in this encounter Visit Diagnoses Not on filedocumented in this encounter Care Teams Scarifier Operator Relationship Specialty Start Date End Date Gill Traore MD PCP - General 11/02/17 05/26/19 Zina Monroy DO PCP - General 05/27/19 08/05/20 documented as of this encounter
--- OUTSIDE RECORDS SUMMARY | 2024-12-08 15:33 | XMS_ITS | Continuity of Care Document ---
Author Organization [facility] Address [address] [place] [address] Encounter [facility] FIN R [id number] Date(s): 10/22/24 - 10/22/24 [facility] [address] [place] [address]- Insurance Providers Guarantor name: Health Plan Information #: 1 Payer: [place] Member Number: NA Policy Number: NA
--- OUTSIDE RECORDS SUMMARY | 2024-12-08 15:33 | XMS_ITS | Encounter Summary ---
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 Request Specialty Diagnoses / Procedures Referred By Contpavel t Referred To Contact Diagnoses Abdominal pain of right lower quadrant during , antepartum Procedures DRUPAL DEVELOPER US OB FIRST TRIMESTER TRANSVAGINAL José Miguel Rosado MD Referral ID Status Reason Start Date Expiration Date V isits Requested Visits Authorized [id number] New Request 05/27/2019 1 1 Reason for Visit * Reason Onset Date Comments 05/27/2019 Encounter Details Date Type Department Care Team (Late st Contact Info) Description 05/27/2019 Telephone [facility] OBGYN Services - [address] [address] Layne Rey RN Social History Tobacco Use Types Packs/Day Years [...] Telephone Encounter - Layne Rey RN - 05/27/2019 1057 EDT Initial Appt Screening Form Best Contact Number: [phone] [facility] Provider: FRANCISCO/ LMP/Pt estimate gestational age: 504/20/19 Date of Positive Test: 05/27/19 Cycle Length: Reg 28-30 day cycles G 3 P 41288 HGT: WEIGHT AT LMP: 152lbs Blood type: No results found for: BTYP Current medications/supplements: Will start PNV Do you smoke, drink or use other drugs: No Have you had problems with any prior pregnancies: (diabetes, high blood pressure, preeclampsia)? N/A Do you have any major medical problems: No (diabetes, high blood pressure,thyroid)? Prior US with heartbeat, or showing normal inside the uterus ? No Risk factors for ectopic ? Has had abdominal pain or bleeding Ultrasound scheduled: Yes 05/27/19 @ 1400 Plan: DRUPAL DEVELOPER US today to rule out ectopic Pt c/o significant mid-right lower abdominal pain X2 episodes over past 4 days, 1st episode pain 6/10 lasted 30 minutes, 2nd episode pain 4/10 lasted 20 minutes. Denies vaginal bleeding. Discussed with Dr Rosado, who indicates an US today. Coordinated with DRUPAL DEVELOPER US, and TC to Arvilla to confirm. US appointment scheduled for today at 1400. documented in this encounter Plan of Treatment Upcoming Encounters Date Type Department Care Team (Late st Contact Info) Description 12/11/2024 9:25 EST Hospital Encounter [facility] OR [address] [place] [address] Celeste Cooper MD [address] [facility], [facility], Level [address] [place] [phone] 12/11/2024 9:25 EST - 12/11/2024 11:40 EST Surgery [facility] OR [address] [place] [address] [id number] Celeste Cooper MD [address] [place] [address] [address] [place] [phone] Laparoscopic left ovarian cystectomy [65949 (CPT??)] 12/31/2024 16:15 EST Post-op Visit [facility] OBGYN Services - [address] [phone] Jessika Upton MD [address] [place] [phone] 02/06/2025 13:10 EDT Appointment [facility] OBGYN Services - [address] [phone] 03/05/2025 8:40 EDT Office Visit [facility] Rheumatology & Immunology - [address] [phone] Nikolay Elizabeth MD [facility] [address] [facility], [facility] [address] [place] [phone] Scheduled Procedures Name Priority Associated Diagnoses Date/Ti me LAPAROSCOPY, WITH EXCISION O R FULGURATION OF LESIONS OF OVARY, PELVIC VISCERA, OR PERITONEAL SURFACE Cyst of left ovary 12/11/2024 9:25 EST documented as of this encounter Procedures Procedure Name Priority Date/Time Associated Diagnosis Comments DRUPAL DEVELOPER US OB FIRST TRIMESTER TRANSVAGINAL Routine 05/27/2019 14:24 EDT Abdominal pain of right lower quadrant during , antepartum documented in this encounter Results * DRUPAL DEVELOPER US OB FIRST TRIMESTER TRANSVAGINAL (05/27/2019 14:24 EDT) Anatomical Region Laterality Modality Other 05/27/2019 14:2 4 EDT 05/27/2019 16:04 EDT Narrative 05/27/2019 16:04 EDT Indication Pelvic pain, .Early assessment. History ======= Previous Outcomes ?3 Para ?? 0 Adorno children born (T) ?0 Adorno children born (P) ?0 Abortions (A) ??2 Adorno living children (L) ??0 Number of gestational sacs: 1. Dating ======= Method of dating: ??based on the LMP LMP on: ?04/20/2019 GA by LMP ??5 w + 2 d RHODA by LMP : ? 01/25/2020 Assigned: ??Dating performed on 05/27/2019 Based on the LMP Assigned GA ?5 w + 2 d Assigned RHODA: ??01/25/2020 Assessment Gestational sac: Not visualized. Location: Uncertain. Maternal Structures Uterus / Cervix Uterus: ?Appears normal Uterus position: ?? Anteverted Uterus long ?9.4 cm Uterus ap ??3.9 cm Uterus tr ??5.9 cm Endometrium: ?? Clearly visualized and no apparent abnormalities Cervix: ?Appears normal Approach: ??Transvaginal Ovaries / Tubes / Adnexa Rt ovary: ??Abnormal Rt ovary D1 ?3.3 cm Rt ovary D2 ?3.2 cm Rt ovary D3 ?2.0 cm Rt ovary mean ??2.8 cm Rt ovary vol ?? 10.9 cm cubed Rt ovary other findings: ?? 2.16x2.16x1.84 cm structure contiguous with right ovary, which may represent either an old, collapsing corpus luteum cyst versus a possible ovarian ectopic . It does not move freely from the right ovary. Lt ovary: ??Normal with Corpus luteum Lt ovarian corpus luteum: ??anechoic Lt ovary D1 ?3.5 cm Lt ovary D2 ?3.1 cm Lt ovary D3 ?3.4 cm Lt ovary mean ??3.3 cm Lt ovary vol ?? 19.5 cm cubed Lt ovarian corpus luteum D1 ?2.4 mm Lt ovarian corpus luteum D2 ?2.4 mm Lt ovarian corpus luteum D3 ?2.2 mm Pouch of Tyshawn / Other Structures Cul de Sac: ?Appears normal Free fluid: ?Free fluid visualized Amount of free fluid: ??mild Method ======== Transvaginal ultrasound examination. View: Good view. Impression OB [place]vaginal [id number] No visible intrauterine . of unknown location. There is a CL on the left ovary. The right ovary contains a 2.16 cm structure which is contiguous with the right ovary and does not move separately. This may represent an older, collapsed CL versus possible ovarian ectopic . There are no other adnexal masses seen. Mild amount of anechoic free fluid in the cul de sac. Follow-up see note in EPIC, sent to lab for HCG. Comment ========= Ultrasound findings discussed w/patient. DATE OF SERVICE: 05/27/2019 Procedure Note Celeste Cooper MD, - 05/27/2019 Indication Pelvic pain, .Early assessment. History ======= Previous Outcomes 3 Para 0 Adorno children born (T) 0 Adorno children born (P) 0 Abortions (A) 2 Adorno living children (L) 0 Number of gestational sacs: 1. Dating ======= Method of dating: based on the LMP LMP on: 04/20/2019 GA by LMP 5 w + 2 d RHODA by LMP : 01/25/2020 Assigned: Dating performed on 05/27/2019 Based on the LMP Assigned GA 5 w + 2 d Assigned RHODA: 01/25/2020 Assessment Gestational sac: Not visualized. Location: Uncertain. Maternal Structures Uterus / Cervix Uterus: Appears normal Uterus position: Anteverted Uterus long 9.4 cm Uterus ap 3.9 cm Uterus tr 5.9 cm Endometrium: Clearly visualized and no apparent abnormalities Cervix: Appears normal Approach: Transvaginal Ovaries / Tubes / Adnexa Rt ovary: Abnormal Rt ovary D1 3.3 cm Rt ovary D2 3.2 cm Rt ovary D3 2.0 cm Rt ovary mean 2.8 cm Rt ovary vol 10.9 cm cubed Rt ovary other findings: 2.16x2.16x1.84 cm structure contiguous with right ovary, which may represent either an old, collapsing corpus luteum cyst versus a possible ovarian ectopic . It does not move freely from the right ovary. Lt ovary: Normal with Corpus luteum Lt ovarian corpus luteum: anechoic Lt ovary D1 3.5 cm Lt ovary D2 3.1 cm Lt ovary D3 3.4 cm Lt ovary mean 3.3 cm Lt ovary vol 19.5 cm cubed Lt ovarian corpus luteum D1 2.4 mm Lt ovarian corpus luteum D2 2.4 mm Lt ovarian corpus luteum D3 2.2 mm Pouch of Tyshawn / Other Structures Cul de Sac: Appears normal Free fluid: Free fluid visualized Amount of free fluid: mild Method ======== Transvaginal ultrasound examination. View: Good view. Impression OB transvaginal [id number] No visible intrauterine . of unknown location. There is a CL on the left ovary. The right ovary contains a 2.16 cm structure which is contiguous with the right ovary and does not move separately. This may represent an older, collapsed CL versus possible ovarian ectopic . There are no other adnexal masses seen. Mild amount of anechoic free fluid in the cul de sac. Follow-up see note in EPIC, sent to lab for HCG. Comment ========= Ultrasound findings discussed w/patient. DATE OF SERVICE: 05/27/2019 José Miguel Rosado MD [facility] US DRUPAL DEVELOPER ORDERABLES Fin al Result documented in this encounter Visit Diagnoses Diagnosis Abdominal pain of right lower quadrant during , antepartum- Primary Cyst of left ovary Other and unspecified ovarian cyst documented in this encounter Care Teams County Supervisor Relationship Specialty Start Date End Date Abbot, Zina C, DO PCP - General 05/27/19 08/05/20 documented as of this encounter
--- OUTSIDE RECORDS SUMMARY | 2024-12-08 15:33 | XMS_ITS | Encounter Summary ---
Author Organization [facility] Address [address] [place] [address] Care Team Providers Care Drain Cleaner Name Role Phone Eugenie, Gill Mejia MD Primary Care Provider [phone] Encounter Details Date Type Department Care Team (Latest Contact Info) Description 10/01/2018 14:29 EST - 10/01/2018 23:59 EST Hospital Encounter [facility] [address] [place] [address] Unknown, Provider, Discharge Disposition: Home or Self Care Social [...] Code Departure Means Destination Home or Self Intermediate documented in this encounter Plan of Treatment Upcoming Encounters Date Type Department Care Team (Late st Contact Info) Description 12/11/2024 9:25 EST Hospital Encounter [facility] OR [address] [place] [address] [phone] Celeste Cooper MD [address] [place] [address] [address] [place] [phone] 12/11/2024 9:25 EST - 12/11/2024 11:40 EST Surgery [facility] OR [address] [place] [address] [phone] Celeste Cooper MD [address] [place] [address] [address] [place] [phone] Laparoscopic left ovarian cystectomy [54055 (CPT??)] 12/31/2024 16:15 EST Post-op Visit [facility] OBGYN Services [address] [address] Jessika Upton MD [address] [place] [phone] 02/06/2025 13:10 EDT Appointment [facility] OBGYN Services [address] [phone] 03/05/2025 8:40 EDT Office Visit [facility] Rheumatology & Immunology - [address] [phone] Nikolay Elizabeth MD [address], [facility] [address] [place] [phone] Scheduled Procedures Name Priority Associated Diagnoses Date/Ti me LAPAROSCOPY, WITH EXCISION O R FULGURATION OF LESIONS OF OVARY, PELVIC VISCERA, OR PERITONEAL SURFACE Cyst of left ovary 12/11/2024 9:25 EST documented as of this encounter Visit Diagnoses Not on filedocumented in this encounter Care Teams Drain Cleaner Relationship Specialty Start Date End Date EugenieGill MD PCP - General 11/02/17 05/26/19 documented as of this encounter
--- OUTSIDE RECORDS SUMMARY | 2024-12-08 15:33 | XMS_ITS | Encounter Summary ---
Author Organization [facility] Address [address] [place] [address] Care Team Providers Care School Psychologist Name Role Phone Soniya Tomlinson Primary Care Provider [phone] Unknown, Provider Primary Care Provider iGll Saenz MD Primary Care Provider [phone] Zina Monroy DO Primary Care Provider [phone] Encounter Details Date Type Department Care Team (Late st Contact Info) Description 10/10/[address] [facility] - [facility] Lab - Main [place] [address] [place], [place] [phone] Soniya Tomlinson PA [address] [place] [phone] Social History Tobacco Use Types Packs/Day [...] Info) Description 12/11/2024 9:25 EST Hospital Encounter [facility] OR [address] [place] [phone] Celeste Cooper MD [address] [place] [address], [facility] [address] [place] [phone] 12/11/2024 9:25 EST - 12/11/2024 11:40 EST Surgery [facility] OR [address] [place] [address] [phone] Celeste Cooper MD [address] [place] [address] 4 [place] [phone] Laparoscopic left ovarian cystectomy [98509 (CPT??)] 12/31/2024 16:15 EST Post-op Visit [facility] OBGYN Services [address] [address] Jessika Upton MD [address] [place] [phone] 02/06/2025 13:10 EDT Appointment [facility] OBGYN Services [address] [phone] 03/05/2025 8:40 EDT Office Visit [facility] Rheumatology & Immunology - [address] [phone] Nikolay Elizabeth MD MPH [address] [place] [address], [facility] [address] [place] [phone] Scheduled Procedures Name Priority Associated Diagnoses Date/Ti me LAPAROSCOPY, WITH EXCISION O R FULGURATION OF LESIONS OF OVARY, PELVIC VISCERA, OR PERITONEAL SURFACE Cyst of left ovary 12/11/2024 9:25 EST documented as of this encounter Procedures Procedure Name Priority Date/Time Associated Diagnosis Comments FREE T3 POC - [facility] Routine 10/10/2016 13 :20 EST documented in this encounter Results * FREE T3 POC - [facility] (10/10/2016 13:20 EST) T3,FREE - [facility] 3.26 2.40 - 4.00 pg/ml 10/11/2016 13:25 EST [facility] 10/10/2016 13:2 0 EST 10/10/2016 13:20 EST Soniya CLIFFORD CHEMISTRY & BLOOD GAS ORDERABLES Final Result [facility] documented in this encounter Visit Diagnoses Not on filedocumented in this encounter Care Teams School Psychologist Relationship Specialty Start Date End Date Soniya Tomlinson PA [address] [place] [phone] PCP - General 03/12/14 10/31/17 Unknown, Provider, [address] [place] [phone] PCP - General 11/01/17 7 EugenieGill MD [address] [place] [phone] PCP - General 11/02/17 05/26/19 Zina Monroy DO [address] [place] [phone] PCP - General 05/27/19 08/05/20 documented as of this encounter
--- NOTE | 2024-12-08 15:37 | ED.GENADUL_ITS ---
Discharge Plan Disposition Patient Disposition: Home Discharge Details Clinical Impression: Foot, fracture, navicular Primary Care Provider: Kalyani Douglas ED Provider: Symone Galeano Home Meds and New Rx's Prescriptions: No Action lisdexamfetamine [Vyvanse] 40 mg capsule 40 mg PO DAILY metformin 500 mg Tablet 500 mg PO DAILY spironolactone 50 mg Tablet 50 mg PO DAILY Discharge Instructions Additional Instructions: You have a healing fracture of the navicular bone of your left foot. There is no treatment indicated at this time, I recommend that you wear supportive flat soled shoes, weight-bear as tolerated, and take Tylenol 650 mg every 6 hours as needed. Elevate your foot and ice as needed. Please call podiatry to schedule a follow-up appointment Referrals: Soniya Woods DPM [[facility] STAFF PHYSICIAN] - Discharge Data Discharge Date/Time-TO BE ENTERED AT DEPARTURE: 12/08/24 17:01 HPI General Date/Time Provider Initiated Documentation: 12/08/24 15:19 . HPI Narrative: Ulises is a 29year old female who presents to the emergency department today for evaluation of left foot/ankle pain. She reports that she rolled her ankle when she was stepping down from a ladder, inverting her ankle. She experienced pain right away. She has been using a magnesium and CBD rub with little improvement of symptoms, pain is aggravated by movement and weightbearing. Pain is worse at the end of the day. It feels like a dull aching throb on the medial aspect of her proximal foot. No distal numbness/tingling, knee injury, or other injuries reported. No previous injury to this foot. No significant past medical history. Physical exam reassuring. Mild tenderness with palpation along proximal aspect of left medial foot along the navicular/cuneiform bones. No overlying ecchymosis, erythema, skin tears, warmth distal pulses and sensation intact. D/dx includes but is not limited to: Fracture, sprain, soft tissue injury I independently interpreted the following tests: Left ankle and foot x-ray, concerning for healing navicular fracture. This was not noted by radiology, I discussed case with Dr. Ricci, orthopedics. He also remarked upon the healing navicular fracture. No intervention is needed at this time, as it is well aligned and well-healing. Recommend use of hard soled shoes, elevation, ice/ibuprofen, and increasing weightbearing as tolerated. Referral to podiatry provided. Reviewed discharge instructions with patient, including symptomatic management, recommendation for podiatry follow-up, and red flags indicating need for return to emergency care Related Data Home Medications ?Medication ?Instructions ?Recorded ?Confirmed metformin 500 mg tablet 500 mg PO DAILY 06/10/23 12/08/24 spironolactone 50 mg tablet 50 mg PO DAILY 06/10/23 12/08/24 lisdexamfetamine 40 mg capsule 40 mg PO DAILY 12/08/24 12/08/24 (Vyvanse) Allergies Allergy/AdvReac Type Severity Reaction Status Date / Time procaine (From Novocain) Allergy Other (See Unverified 12/08/24 15:13 Comment) General Stated Complaint: Orthopedic ANNE: 4 Review of Systems Narrative: See HPI Exam Const General: cooperative, healthy appearing, comfortable, no acute distress, well developed and well groomed Nutritional Appearance: average body habitus Orientation: alert and oriented x3 Resp Effort & Inspection: normal respiratory effort and able to speak in complete sentences Skin General skin exam: no rashes or lesions noted Neuro General: patient alert, patient oriented x3, tone normal, moves all extremities and no focal motor deficits Motor: muscle tone normal throughout and strength 5/5 throughout Extrem General: normal to inspection, capillary refill normal and no pedal edema Left lower extremity: normal to inspection, full ROM, normal capillary refill and foot Details: normal capillary refill, tenderness (mild tenderness at navicular bone at proximal medial foot) and no edema; no abrasions, no lacerations, no ecchymosis and no crepitus Course Vital Signs Vital signs: Vital Signs Temperature 36.8 C 12/08/24 15:12 Pulse 89 12/08/24 15:12 Respiratory Rate 16 12/08/24 15:12 Blood Pressure 115/76 12/08/24 15:12 Pulse Oximetry 98 12/08/24 15:12 Temperature 36.8 C 12/08/24 15:12 Pulse 89 12/08/24 15:12 Respiratory Rate 16 12/08/24 15:12 Blood Pressure 115/76 12/08/24 15:12 Pulse Oximetry 98 12/08/24 15:12 Pain Level 6 01/12/25 15:12 Lab/Test Results Lab/Test Results: POC- Test(urine) Negative Medical Decision Making Quality:SDOH Health Related Social Needs: No Data to Display PFSH All Active Problems (Updated 12/08/24 @ 16:54 by Symone Martinez) Foot, fracture, navicular (Acute) Social History Smoking/Tobacco Use Status: Never Smoking risk assessment performed?: Yes Alcohol Intake: current Alcohol Intake frequency: a few times a month Alcohol type: hard liquor Drug use: Never Substance use type: does not use Housing: house Do you feel safe at home: Yes Do you feel safe in your relationship?: Yes
--- NOTE | 2024-12-08 16:25 | DI.VRAD_ITS ---
PROCEDURE INFORMATION: Exam: XR Left Ankle Exam date and time: 12/08/2024 3:46 PM Age: 29 years old Clinical indication: Left; Patient HX: Lt ankle bruising + pain S/P twisting injury TECHNIQUE: Imaging protocol: Radiologic exam of the left ankle. Views: 3 or more views. COMPARISON: No relevant prior studies available. FINDINGS: Bones/joints: There may be some mild widening of the ankle mortise. Bony alignment is otherwise anatomic. No evidence for fracture. No concerning soft tissue swelling. Soft tissues: See Bones/joints finding. IMPRESSION: Possible mild widening of the ankle mortise. Clinical correlation with respect to stability recommended. No evidence for fracture. Dictated and Authenticated by: Molly Major MD. Ordering:LOGAN Ashby MD
--- NOTE | 2024-12-08 16:29 | DI.VRAD_ITS ---
PROCEDURE INFORMATION: Exam: XR Left Foot Exam date and time: 12/08/2024 3:49 PM Age: 29 years old Clinical indication: Left; Patient HX: Lt foot pain + bruising S/P twisting injury TECHNIQUE: Imaging protocol: Radiologic exam of the left foot. Views: 3 or more views. COMPARISON: CR XR ANKLE LT COMPLETE 12/08/2024 3:46 PM FINDINGS: Bones/joints: Normal. Soft tissues: Normal. IMPRESSION: No evidence for fracture. Dictated and Authenticated by: Molly Major MD. Ordering:LOGAN Ashby MD
--- NOTE | 2024-12-09 10:26 | NUR.NOTE ---
Access chart to see referral information regarding this patient. [facility] charge nurse received a call from [facility] stating that they wanted the patient to get a short walking boot. In review the patient was referred to Podiatry and refused appts and [facility] was notified of this. Nursing Note:
== END 2024-12-08 17:01 | disposition home or self-care (01) ==
PROVIDERS: Emergency Provider Nurse Practitioner Family; PCP Family Medicine
DX: S92.255A Nondisplaced fracture of navicular [scaphoid] of left foot, initial encounter for closed fracture (principal); X50.1XXA Overexertion from prolonged static or awkward postures, initial encounter; Y93.01 Activity, walking, marching and hiking
CPT/HCPCS: 81025; 99284; 73610; 73630

== ENCOUNTER 2025-08-26 17:31 | Outpatient (REF) | payer MEDICAID, SELFPAY ==
[2025-08-26 14:30] LABS: Anion Gap 10.2 mmol/L (3-11); BUN 14 mg/dL (7-18); CO2 24.8 mmol/L (21.0-32.0); Calcium 9.1 mg/dL (8.5-10.1); Chloride 104 mmol/L (98-107); Estimated GFR 119.99 (mL/min/1.73m2); Glucose 86 mg/dL (74-106); Potassium 4.4 mmol/L (3.5-5.1); Sodium 139 mmol/L (136-145)
== END 2025-08-26 17:32 | disposition home or self-care (01) ==
LOC: NCHCN 17:31
PROVIDERS: PCP Family Medicine; Visit Provider Family Medicine
DX: E28.2 Polycystic ovarian syndrome (principal)
CPT/HCPCS: 80048